=== PATIENT | female | born 1980 | race Caucasian/White ===

== ENCOUNTER 2016-06-13 18:16 | Emergency (ER) | payer OTHER ==
[2016-06-13 18:28] VITALS: BMI 35.2
--- NOTE | 2016-06-13 20:08 | PDOC ---
History of Present Illness - General Chief Complaint: Pain Stated Complaint: ABD PAIN Time Seen by Provider: 06/13/16 19:26 History Source: Patient - History of Present Illness Travel History: No Timing/Duration: reports: intermittent Quality: reports: mild Abdominal Pain Onset Location: reports: generalized abdomen Pain Radiation: reports: no radiation Past History - Travel Traveled outside of the country in the last 30 days: No Close contact w/someone who was outside of country & ill: No - Past Medical History Allergies/Adverse Reactions: Allergies Allergy/AdvReac Type Severity Reaction Status Date / Time No Known Allergies Allergy Verified 06/13/16 18:22 Home Medications: Ambulatory Orders Insulin Aspart [Novolog Flexpen] 0 unit SQ PRN 12/20/13 Metformin HCl [Glucophage -] 500 mg PO BID 01/19/15 Ferrous Sulfate [Feosol] 325 mg PO DAILY 11/14/15 Valsartan [Diovan] 80 mg PO DAILY 11/14/15 Albuterol 0.083% Nebulizer Sarina [Ventolin 0.083% Nebulizer Soln -] 1 amp NEB Q8H PRN #0 amp 11/19/15 Docusate Sodium [Colace -] 100 mg PO BID #14 capsule 11/19/15 Ferrous Sulfate [Feosol] 325 mg PO DAILY ud 11/19/15 Insulin (Levemir) [Levemir Vial] 50 units SQ BID@0700,2200 06/13/16 Oxycodone HCl/Acetaminophen [Percocet 5-325 mg Tablet] 1 - 2 tab PO Q4H Anemia: Yes Asthma: Yes Cardiac Disorders: No CHF: No Diabetes: Yes (iddm) Psychiatric Problems: Yes (DEPRESSION, ANXIETY,PTSD) Suicide Attempt (Hx): No Other medical history: polycystic kidney disease, kidney stones - Surgical History Abdominal Surgery: Yes Cholecystectomy: No - Psycho/Social/Smoking Cessation Hx Anxiety: No Suicidal Ideation: No Smoking History: Never smoked Have you smoked in the past 12 months: No Number of Cigarettes Smoked Daily: 2 Information on smoking cessation initiated: No Hx Alcohol Use: No Drug/Substance Use Hx: No Substance Use Type: None Abd/GI Specific PMHX - Complaint Specific PMHX Colitis: No Diverticulitis: No Gall Bladder Disease: No GERD: No Review of Systems - Review of Systems Able to Perform ROS?: Yes Comments:: 06/13/16 20:53 CONSTITUTIONAL: Absent: fever, chills, diaphoresis, generalized weakness, malaise, loss of appetite HEENT: Absent: rhinorrhea, nasal congestion, throat pain, throat swelling, difficulty swallowing, mouth swelling, ear pain, eye pain, visual Changes CARDIOVASCULAR: Absent: chest pain, loss of consciousness, palpitations, irregular heart rate, peripheral edema RESPIRATORY: Absent: cough, shortness of breath, dyspnea with exertion, orthopnea, wheezing, stridor, hemoptysis GASTROINTESTINAL: Generalized abd pain Absent: abdominal distension, nausea, vomiting, diarrhea, constipation, melena, hematochezia GENITOURINARY: Absent: dysuria, frequency, urgency, hesitancy, hematuria, flank pain, genital pain MUSCULOSKELETAL: Absent: myalgia, arthralgia, joint swelling SKIN: Absent: rash, itching, pallor HEMATOLOGIC/IMMUNOLOGIC: Absent: easy bleeding, easy bruising, lymphadenopathy, frequent infections ENDOCRINE: Absent: unexplained weight gain, unexplained weight loss, heat intolerance, cold intolerance NEUROLOGIC: Absent: headache, focal weakness or paresthesias, dizziness, unsteady gait, seizure, mental status changes, bladder or bowel incontinence PSYCHIATRIC: Absent: anxiety, depression, suicidal or homicidal ideation, hallucinations. Is the patient limited [place]ican proficient: No *Physical Exam - Vital Signs Last Vital Signs Temp Pulse Resp BP Pulse Ox 97.6 F 102 H 18 126/85 100 06/13/16 18:22 06/13/16 18:22 06/13/16 18:22 06/13/16 18:22 06/13/16 18:22 - Physical Exam Comments: 06/13/16 20:54 GENERAL: Well developed, well nourished. Awake and alert. No acute distress. HEENT: Normocephalic, atraumatic. PERRLA, EOMI. No conjunctival pallor. Sclera are non- icteric. Moist mucous membranes. Oropharynx is clear. NECK: Supple. Full ROM. No JVD. Carotid pulses 2+ and symmetric, without bruits. No thyromegaly. No lymphadenopathy. CARDIOVASCULAR: Regular rate and rhythm. No murmurs, rubs, or gallops. Distal pulses are 2+ and symmetric. PULMONARY: No evidence of respiratory distress. Lungs clear to auscultation bilaterally. No wheezing, rales or rhonchi. ABDOMINAL: Diffused pain Soft. Non-distended. No rebound or guarding. No organomegaly. Normoactive bowel sounds. MUSCULOSKELETAL Normal range of motion at all joints. No bony deformities or tenderness. No CVA tenderness. EXTREMITIES: No cyanosis. No clubbing. No edema. No calf tenderness. SKIN: Warm and dry. Normal capillary refill. No rashes. No jaundice. NEUROLOGICAL: Alert, awake, appropriate. Cranial nerves 2-12 intact. No deficits to light touch and temperature in face, upper extremities and lower extremities. No motor deficits in the in face, upper extremities and lower extremities. Normoreflexic in the upper and lower extremities. Normal speech. Toes are down- going bilaterally. Gait is normal without ataxia. PSYCHIATRIC: Cooperative. Good eye contact. Appropriate mood and affect. ED Treatment Course - LABORATORY CBC & Chemistry Diagram: 06/13/16 21:12 06/13/16 21:52 - RADIOLOGY Radiograph Interpretation: 06/14/16 01:43 Patient Name: Jordyn Ramos This is a preliminary report by imaging pullman conductor Exam: Contrast-enhanced CT abdomen and pelvis Images: 526 Clinical indication: Abdominal pain. Findings: The lung bases are clear. Areas of hypoattenuation are seen along the fissures likely fatty infiltration. The liver is otherwise unremarkable. The gallbladder spleen and pancreas all have a normal appearance. The adrenal glands are unremarkable. Numerous hypodensities are seen in both kidneys which may represent a polycystic kidney variant. There is no hydronephrosis or hydroureter. The gastrointestinal tract does not appear obstructed. A small ventral hernia contains a segment of nonobstructed small bowel. No thickened or dilated bowel is seen. The appendix has a normal appearance. There is no mesenteric infiltration. There is no free fluid. The uterus is anteverted. No adnexal masses are seen. The urinary bladder is unremarkable. No abdominal or pelvic adenopathy is seen. No lytic or blastic destructive osseous lesions are seen. Impression: No inflammatory process identified in the abdomen or pelvis. No abdominal mass, adenopathy or collection seen. No explanation seen for this patient's abdominal pain. Innumerable hypodensities in both kidneys may represent a polycystic kidney variant. THIS DOCUMENT HAS BEEN ELECTRONICALLY SIGNED John Church M.D. 06/14/2016 00:27 EST Progress Note - Progress Note Progress Note: 36-year-old female presents to the emergency department with her family complaining of diffuse abdominal pains. Pain is described as 8/10 dull pain radiating intermittent to the right flank. The pain started approximately 6 AM which woke her from her sleep. The pain is alleviated minimally when laying supine and is exacerbated when sitting up. The pain is associated with chills, nausea/vomiting and 3 bouts of diarrhea(nonbilious, nonbloody) but denies any fever. The pain is also associated with intermittent burning upon urination but denies frequency/hesitancy, hematuria. LMP: 3 weeks ago 0122hrs: Pt states she feels better and wishes to go home *DC/Admit/Observation/Transfer Diagnosis at time of Disposition: Viral syndrome UTI (urinary tract infection) Qualifiers: Urinary tract infection type: acute cystitis Hematuria presence: without hematuria Qualified Code(s): N30.00 - Acute cystitis without hematuria Diabetes mellitus Qualifiers: Diabetes mellitus type: type 1 Diabetes mellitus complication status: with hyperglycemia Qualified Code(s): E10.65 - Type 1 diabetes mellitus with hyperglycemia - Discharge Dispostion Disposition: HOME Condition at time of disposition: Improved Admit: No - Referrals Referrals: Billie Mulligan MD [Primary Care Provider] - Elliott Montero MD [Staff Physician] - Alcides Mackay MD., MD [Staff Physician] - - Patient Instructions Printed Discharge Instructions: Urinary Tract Infection Additional Instructions: Below is a preliminary ultrasound report. The final reading will be done within 24-48 hours. Patient to take your antibiotics for your urinary tract infection. Increase fluids Pelvic rest Follow-up with your physician and the urologist as listed on your discharge sheet Return back to the emergency department for severe/persistent or worsening symptoms. Patient Name: Jordyn aRmos This is a preliminary report by imaging pullman conductor Exam: Contrast-enhanced CT abdomen and pelvis Images: 526 Clinical indication: Abdominal pain. Findings: The lung bases are clear. Areas of hypoattenuation are seen along the fissures likely fatty infiltration. The liver is otherwise unremarkable. The gallbladder spleen and pancreas all have a normal appearance. The adrenal glands are unremarkable. Numerous hypodensities are seen in both kidneys which may represent a polycystic kidney variant. There is no hydronephrosis or hydroureter. The gastrointestinal tract does not appear obstructed. A small ventral hernia contains a segment of nonobstructed small bowel. No thickened or dilated bowel is seen. The appendix has a normal appearance. There is no mesenteric infiltration. There is no free fluid. The uterus is anteverted. No adnexal masses are seen. The urinary bladder is unremarkable. No abdominal or pelvic adenopathy is seen. No lytic or blastic destructive osseous lesions are seen. Impression: No inflammatory process identified in the abdomen or pelvis. No abdominal mass, adenopathy or collection seen. No explanation seen for this patient's abdominal pain. Innumerable hypodensities in both kidneys may represent a polycystic kidney variant. THIS DOCUMENT HAS BEEN ELECTRONICALLY SIGNED John Church M.D. 06/14/2016 00:27 EST
[2016-06-13] MEDS ORDERED: SODIUM CHLORIDE 1,000 ML IV STA (20:10)
[2016-06-13 21:27] LABS: EOSINOPHIL 0.6 % (0-4.5); MCH 29.1 pg (25.7-33.7); MEAN CELL VOLUME 85.7 fl (80-96); MEAN PLT VOLUME 9.7 fl (7.5-11.1); NEUTROPHILS 74.6 % (42.8-82.8); PLATELET COUNT 268 K/MM3 (134-434); RDW 13.6 % (11.6-15.6)
[2016-06-13 21:31] LABS: URINE APPEARANCE CLOUDY; URINE BILIRUBIN NEGATIVE (NEGATIVE); URINE COLOR YELLOW; URINE GLUCOSE (UA) 3+ (NEGATIVE); URINE KETONE 1+ (NEGATIVE); URINE NITRITE NEGATIVE (NEGATIVE); URINE UROBILINOGEN NEGATIVE E.U./dl (0.2-1.0)
[2016-06-13 21:32] LABS: URINE BLOOD 2+ (NEGATIVE); URINE LEUK ESTERASE 1+ (NEGATIVE); URINE PROTEIN 2+ (NEGATIVE)
[2016-06-13 21:38] LABS: URINE RBC 6 /hpf (0-3); URINE WBC 11 /hpf (3-5)
[2016-06-13 21:44] LABS: AMYLASE 67 U/L (25-115)
[2016-06-13 22:36] LABS: ALBUMIN 2.7 g/dl (3.4-5.0); ANION GAP 13 (8-16); CALCIUM 8.2 mg/dL (8.5-10.1); CO2 22 mmol/L (21-32); SGOT/AST 13 U/L (15-37); SGPT/ALT 23 U/L (12-78)
[2016-06-13 22:38] LABS: ALK PHOS 104 U/L (45-117); BILIRUBIN,TOTAL 0.4 mg/dL (0.2-1.0); TOT PROT 6.4 g/dl (6.4-8.2)
[2016-06-13 22:40] LABS: GLUCOSE,RANDOM 365 mg/dL (74-106)
[2016-06-13] MEDS ORDERED: INSULIN REGULAR HUMAN 100 UNITS/ML *VIAL IVPUSH ONE (22:49)
[2016-06-13] MEDS ORDERED: INSULIN (NOVOLOG) ASPART 100 UNITS/ML 10ML VIAL ONE (23:32)
[2016-06-14 02:04] VITALS: BP 122/74; PULSE 82; TEMP 97.9
== END 2016-06-14 02:13 | disposition home or self-care (01) ==
LOC: JER 18:16
PROC: 3E0337Z Introduction of Electrolytic and Water Balance Substance into Peripheral Vein, Percutaneous Approach (ICD-10-PCS; principal; 2016-06-13)
PROC: 3E033VG Introduction of Insulin into Peripheral Vein, Percutaneous Approach (ICD-10-PCS; 2016-06-13)
DX: N30.00 Acute cystitis without hematuria (principal); B34.9 Viral infection, unspecified; E10.9 Type 1 diabetes mellitus without complications; Z79.4 Long term (current) use of insulin; J45.909 Unspecified asthma, uncomplicated; J44.9 Chronic obstructive pulmonary disease, unspecified; F41.8 Other specified anxiety disorders
CPT/HCPCS: 36415; 74177-TC; 80053; 81003; 81015; 82150; 83690; 84703; 85025; 87086; 96361; 96374; 99283-25; Q9967

== ENCOUNTER 2017-10-06 13:03 | Observation (INO) | payer OTHER ==
--- NOTE | 2017-10-06 13:59 | PDOC ---
History of Present Illness - General Chief Complaint: Vaginal Bleeding Stated Complaint: HIGH BLOOD SUGAR - History of Present Illness Initial Comments: Patient is a 37 year old female, with a significant past medical history of PCOS , Anemia, IDDM, Asthma, Kidney stones, who presents to the emergency department complaining of two weeks of persistent menorrhagia. Pt states that she has had persistent vaginal bleeding during her last period beginning on 09/25, initially with very heavy flow, requiring pad changes 1x per hour and noted clots from the vaginal introitus. Pt states the bleeding has persistent, however has decreased slightly in volume. Pt also endorses recent crampy lower abdominal pain over the last few days associated with episodes of bleeding and states her BGMs have been elevated in the 300s the last few days. Pt endorses regular menses prior to this period and recently had a depot placed in July. Pt with no hx of any gynecologic conditions. Pt with two prior miscarriages and two living children, most recent miscarriage was three years ago, required blood transfusions at [facility]. Pt is sexually active with her and does not use contraception Endorses mild lightheadedness SOB recently. Complaining of crampy LLQ and suprapubic abdominan pain; chronic LUQ and BL back pain. patient denies chest pain, shortness of breath, headache. Denies fever, chills, nausea, vomiting, diarrhea and constipation. Denies dysuria, frequency, urgency and hematuria. Allergies:None Past surgical history: 2 C-sections, multiple lithotripsies for renal stones Social History: Former smoker, social drink 2-3 drinks per week. No drug use PMD: Dr. Strickland Edger Hand: Dr. Rosen 10/06/17 13:43 Past History - Past Medical History Allergies/Adverse Reactions: Allergies Allergy/AdvReac Type Severity Reaction Status Date / Time No Known Allergies Allergy Verified 10/06/17 13:13 Home Medications: Ambulatory Orders Albuterol 0.083% Nebulizer Sarina [Ventolin 0.083% Nebulizer Soln -] 1 neb NEB Q6H PRN 10/06/17 Budesonide/Formeterol Fumarate [SYMBICORT 80/4.5mcg -] 1 inh PO DAILY 10/06/17 Ferrous Sulfate [Feosol] 325 mg PO DAILY 10/06/17 Insulin Glargine,Hum.rec.anlog [Lantus] 50 unit SQ HS 10/06/17 Valsartan [Diovan] 80 mg PO DAILY 10/06/17 metFORMIN HCL [Glucophage -] 500 mg PO BID 10/06/17 Anemia: Yes Asthma: Yes Cardiac Disorders: No COPD: No CHF: No Diabetes: Yes (iddm) Psychiatric Problems: Yes (DEPRESSION/ANXIETY/BIPOLAR) - Surgical History Abdominal Surgery: Yes Cholecystectomy: No - Suicide/Smoking/Psychosocial Hx Smoking History: Never smoked Have you smoked in the past 12 months: No Number of Cigarettes Smoked Daily: 0 Hx Alcohol Use: No Drug/Substance Use Hx: No Substance Use Type: None Review of Systems - Review of Systems Comments:: GENERAL/CONSTITUTIONAL: No fever or chills. No weakness. +lightheadness. HEAD, EYES, EARS, NOSE AND THROAT: No change in vision. No ear pain or discharge. No sore throat. CARDIOVASCULAR: No chest pain or shortness of breath RESPIRATORY: No cough, wheezing, or hemoptysis. GASTROINTESTINAL: +Abdominal pain. No nausea, vomiting, diarrhea or constipation. GENITOURINARY: +Menorrhagia. No dysuria, frequency, or change in urination. MUSCULOSKELETAL: No joint or muscle swelling or pain. No neck or back pain. SKIN: No rash NEUROLOGIC: No headache, vertigo, loss of consciousness, or change in strength/ sensation. ENDOCRINE: No increased thirst. No abnormal weight change HEMATOLOGIC/LYMPHATIC: No anemia, easy bleeding, or history of blood clots. ALLERGIC/IMMUNOLOGIC: No hives or skin allergy. 10/06/17 13:44 *Physical Exam - Vital Signs Last Vital Signs Temp Pulse Resp BP Pulse Ox 97.8 F 100 H 22 126/76 98 10/06/17 13:14 10/06/17 13:14 10/06/17 13:14 10/06/17 13:14 10/06/17 13:14 - Physical Exam Comments: GENERAL: Middle aged, awake, alert, and fully oriented, in no acute distress HEAD: No signs of trauma, normocephalic, atraumatic EYES: PERRLA, EOMI, sclera anicteric, conjunctiva clear ENT: Auricles normal inspection, hearing grossly normal, nares patent, oropharynx clear without exudates. Moist mucosa NECK: Normal ROM, supple, no lymphadenopathy, JVD, or masses LUNGS: No distress, speaks full sentences, clear to auscultation bilaterally HEART: Regular rate and rhythm, normal S1 and S2, no murmurs, rubs or gallops, peripheral pulses normal and equal bilaterally. ABDOMEN: +TTP in LLQ/LUQ/suprapubic region. Globular abdomen, No guarding, no rebound. L CVA tenderness/flank pain. EXTREMITIES : Normal inspection, Normal range of motion, trace pedal edema. No clubbing or cyanosis. NEUROLOGICAL: Cranial nerves II through XII grossly intact. Normal speech, normal gait, no focal sensorimotor deficits SKIN: Warm, Dry, normal turgor, no rashes or lesions noted 10/06/17 13:44 ED Treatment Course - LABORATORY CBC & Chemistry Diagram: 10/06/17 14:27 10/06/17 22:00 Medical Decision Making - Medical Decision Making 37 year old female, with a significant past medical history of PCOS, Anemia, IDDM, Asthma, Kidney stones, who presents to the emergency department complaining of two weeks of persistent menorrhagia. Will send for CBC, CMP, Pt/ INR, TSH, UA, urine culture, B-HCG, and TVUS. DDx includes menometrorhagia, fibroids, , adenomyosis, molar , PID, Tuboovarian abscess 10/06/17 15:15 Labs notable for VICENTE 1.5. BGMs persistently in 500s. Pt concerned about going home to medicinal plant picker daughter, initially wanted to leave AMA. Pelvic exam performed, no evidence of CMT, irregular cervical surface noted. Pt still with vaginal bleeding on exam. TVUS notable for endometrial thickening to 2.1cm. Will given referral for OBGYN f/u for endometrial sampling. Plan for 2 L boluses and presumptive discharge later tonight. Pt made ED obs, raymond masonlogged, aware. 10/06/17 19:[address] Price. Sign out given. Raymond masonlogged again to inform of ED short stay status. 10/06/17 21:12 *DC/Admit/Observation/Transfer Diagnosis at time of Disposition: Vaginal bleeding, Acute kidney injury - Referrals - Patient Instructions - Post Discharge Activity
[2017-10-06 15:06] LABS: BASO % 0.9 % (0-2.0); EOS % 0.8 % (0-4.5); HEMOGLOBIN 10.9 GM/dL (10.7-15.3); LYMPH % 22.7 % (8-40); MCH 30.2 pg (25.7-33.7); MCHC 33.9 g/dl (32.0-36.0); MEAN CELL VOLUME 89.2 fl (80-96); MONO % 5.6 % (3.8-10.2); PLATELET COUNT 231 K/MM3 (134-434); RBC 3.59 M/mm3 (3.60-5.2); RDW 12.8 % (11.6-15.6); WHITE BLOOD COUNT 7.8 K/mm3 (4.0-10.0)
[2017-10-06] MEDS ORDERED: SODIUM CHLORIDE 1,000 ML IV STA ×3 (15:06→19:46)
--- NOTE | 2017-10-06 15:22 | PDOC ---
Attending Attestation - [facility] HPI: 10/06/17 15:22 The patient is a 37 year old female with a significant past medical history of Asthma, Anemia, Diabetes, PCOS, and Kidney stones, who presents to the emergency department for evaluation of a 2 week history of menorrhagia. The patient reports episodes of persistent vaginal bleeding during her last menses ( 09/25) requiring pad change, 1 time every hour. She reports crampy lower abdominal pain secondary to episodes of bleeding. She reports regular menses. Of note, the patients most recent miscarriage was three years ago, required blood transfusions at [facility]. The patient admits she is sexually active with her and does not use contraception. She reports associated symptoms of crampy left lower quadrant pain, suprapubic abdominal pain, chronic left upper quadrant pain, lightheadedness, and dyspnea. The patient denies chest pain, shortness of breath, headache, and dizziness. Denies fevers, chills, nausea, vomiting, diarrhea, and constipation. Denies dysuria, frequency, urgency, and hematuria. Denies history of gynecologic conditions. Allergies: NKDA Past surgical history: C-sections 2x, multiple lithotripsies for renal stones Social History: Former smoker, social drink 2-3 drinks per week. No reported drug use. PCP: Dr. Mulligan ([phone]) Convex Grinder Operator: Dr. Rosen - Physicial Exam PE: Vitals: Triage Vital signs reviewed General Appearance: no acute distress, well nourished well developed, Head: Atraumatic, normocephalic Eyes: Pupils equal reactive round, extraocular movement intact Nose: Nares patent bilaterally Neck: Supple;No Nuchal rigidity Chest Wall: Nontender Cardiac: Regular rate and rhythm, no murmurs, no rubs, no gallops, Lungs: Clear to auscultation bilateral, good air movement bilaterally, Abdomen: Soft, nondistended, normal bowel sounds, nontender to palpation Rectal: Exam deferred Extremities: Full range of motion to all extremities, no cyanosis, clubbing, or edema Skin: Warm and dry, no rashes or lesions, no petechiae Psych: normal mood, normal affect - Medical Decision Making The patient is a 37 year old female with a significant past medical history of Asthma, Anemia, Diabetes, PCOS, and Kidney stones, who presents to the emergency department for evaluation of a 2 week history of menorrhagia. Plan: Labs UA Trasvaginal <Danilo Clark - Last Filed: 10/06/17 15:22> - Resident Resident Name: Tulio Watkins - ED Attending Attestation I have performed the following: I have examined & evaluated the patient, The case was reviewed & discussed with the resident, I agree w/resident's findings & plan, Exceptions are as noted - Medical Decision Making 10/06/17 19:45 Patient presents with menorrhagia. Abdominal cramping. No fever no white count. Patient critically high glucose and elevated creatinine Difficult access Despite 12 units NovoLog patient's fingerstick remains critically high Reevaluation 7:30 PM. Left EJ placed by ER M.D. Patient not amenable to staying overnight for observation giving lack of child adolescent care. Plan is hydrated with 3 L of fluid additional insulin. Recheck labs. Patient will be placed on short stay observation. Should her hyperglycemia and creatinine downtrend patient can be discharged and advised to follow-up with her primary care provider and corrective and manual arts therapist tomorrow. Patient also follows with Dr. Murray Rosario renal she was also encouraged to follow up with Dr. Delacruz to assume remainder of care. 7:45 PM. <Kendrick Beckett - Last Filed: 10/06/17 19:45> Attestations - Attestations Documentation prepared by Danilo Clark, acting as medical staffing coordinator for Kendrick Beckett MD. <Danilo Clark - Last Filed: 10/06/17 15:22>
[2017-10-06 15:44] LABS: ALBUMIN 2.7 g/dl (3.4-5.0); ANION GAP 9 (8-16); BILIRUBIN,TOTAL 0.3 mg/dL (0.2-1.0); BLOOD UREA NITROGEN 22 mg/dL (7-18); CALCIUM 8.3 mg/dL (8.5-10.1); CHLORIDE 99 mmol/L (98-107); CO2 23 mmol/L (21-32); CREATININE 1.6 mg/dL (0.55-1.02); SGPT/ALT 17 U/L (12-78); SODIUM 131 mmol/L (136-145)
[2017-10-06 15:45] LABS: URINE APPEARANCE CLEAR; URINE BILIRUBIN NEGATIVE (<2.0 mg/dL); URINE COLOR STRAW; URINE GLUCOSE (UA) 3+ (NEGATIVE); URINE KETONE NEGATIVE (NEGATIVE); URINE LEUK ESTERASE NEGATIVE (NEGATIVE); URINE NITRITE NEGATIVE (NEGATIVE); URINE UROBILINOGEN NEGATIVE mg/dL (0.2-1.0)
[2017-10-06 15:51] LABS: INR 0.83 (0.82-1.09); PROTHROMBIN TIME (PATIENT) 9.4 SEC (9.7-13.0)
[2017-10-06 15:53] LABS: ALK PHOS 141 U/L (45-117)
[2017-10-06 15:54] LABS: GLUCOSE,RANDOM 533 mg/dL (74-106); POTASSIUM 4.6 mmol/L (3.5-5.1); SGOT/AST 15 U/L (15-37)
[2017-10-06 16:01] LABS: URINE PROTEIN 2+ (NEGATIVE)
[2017-10-06] MEDS ORDERED: INSULIN (NOVOLOG) ASPART 100 UNITS/ML 10ML VIAL SQ ONE ×2 (16:12→18:08)
[2017-10-06] MEDS ORDERED: INSULIN REGULAR HUMAN 100 UNITS/ML *VIAL ONE ×3 (16:19→18:22)
[2017-10-06] MEDS ORDERED: INSULIN SLIDING SCALE (NOVOLOG) 1 VIAL SQ SCH (16:30)
[2017-10-06 16:33] LABS: EPI CELLS RARE /HPF (FEW)
[2017-10-06 16:50] LABS: HCG,QUALITATIVE URINE NEGATIVE
[2017-10-06] MEDS ORDERED: SODIUM CHLORIDE 0.9% 1000 ML INFUS.BAG IV ONE (19:29)
--- NOTE | 2017-10-06 20:22 | PDOC ---
*Physical Exam - Vital Signs Last Vital Signs Temp Pulse Resp BP Pulse Ox 97.8 F 100 H 22 126/76 98 10/06/17 13:14 10/06/17 13:14 10/06/17 13:14 10/06/17 13:14 10/06/17 18:28 ED Treatment Course - LABORATORY CBC & Chemistry Diagram: 10/06/17 14:27 10/06/17 15:12 - ADDITIONAL ORDERS Additional order review: Laboratory Results 10/06/17 10/06/17 10/06/17 Unknown 15:12 14:53 PT with INR INR Sodium Cancelled Potassium Cancelled Chloride Cancelled Carbon Dioxide Cancelled Anion Gap Cancelled BUN Cancelled Creatinine Cancelled Creat Clearance w eGFR Cancelled Random Glucose Cancelled Calcium Cancelled Total Bilirubin Cancelled AST Cancelled ALT Cancelled Alkaline Phosphatase Cancelled Total Protein Cancelled Albumin Cancelled Lipase 160 TSH Urine Color Cancelled Urine Appearance Cancelled Urine pH Cancelled Ur Specific [place] Cancelled Urine Protein Cancelled Urine Glucose (UA) Cancelled Urine Ketones Cancelled Urine Blood Cancelled Urine Nitrite Cancelled Urine Bilirubin Cancelled Urine Urobilinogen Cancelled Ur Leukocyte Esterase Cancelled Urine WBC (Auto) Urine RBC (Auto) Ur Epithelial Cells Urine HCG, Qual Negative 10/06/17 10/06/17 10/06/17 14:41 14:41 14:41 PT with INR 9.40 L INR 0.83 L Sodium 131 L Potassium 4.6 Chloride 99 Carbon Dioxide 23 Anion Gap 9 BUN 22 H Creatinine 1.6 H Creat Clearance w eGFR 36.47 Random Glucose 533 H* Calcium 8.3 L Total Bilirubin 0.3 D AST 15 ALT 17 Alkaline Phosphatase 141 H Total Protein 7.0 Albumin 2.7 L Lipase TSH 1.39 Urine Color Straw Urine Appearance Clear Urine pH 6.0 Ur Specific [place] 1.018 Urine Protein 2+ H Urine Glucose (UA) 3+ H Urine Ketones Negative Urine Blood 1+ H Urine Nitrite Negative Urine Bilirubin Negative Urine Urobilinogen Negative Ur Leukocyte Esterase Negative Urine WBC (Auto) <1 Urine RBC (Auto) <1 Ur Epithelial Cells Rare Urine HCG, Qual Negative 10/06/17 14:27 RBC 3.59 L MCV 89.2 MCHC 33.9 RDW 12.8 MPV 10.0 Neutrophils % 70.0 Lymphocytes % 22.7 Monocytes % 5.6 Eosinophils % 0.8 Basophils % 0.9 - Medications Given in the ED: ED Medications Discontinued Medications Generic Name Dose Route Start Last Admin Trade Name [place] PRN Reason Stop Dose Admin Sodium Chloride 1,000 mls @ 1,000 mls/hr 10/06/17 15:06 10/06/17 17:13 Normal Saline - IV 10/06/17 16:05 Not Given ASDIR STA Insulin Aspart 12 units 10/06/17 16:12 10/06/17 16:31 Novolog Vial SQ 10/06/17 16:13 12 units ONCE ONE Administration Protocol Insulin Aspart 12 units 10/06/17 18:08 10/06/17 18:26 Novolog Vial SQ 10/06/17 18:09 12 units ONCE ONE Administration Protocol Sodium Chloride 3,000 ml 10/06/17 19:29 10/06/17 19:46 Normal Saline - IV 10/06/17 19:30 3,000 ml ONCE ONE Administration Medical Decision Making - Medical Decision Making 10/06/17 20:[address] Watkins. 10/06/17 21:22 Discussed patient with inpatient team for short stay obs. Patient currently receiving 2L NS and in for repeat creatinine. 10/06/17 22:15 Inpatient team determined patient needs full observation in hospital. Patient admitted for further evaluation. *DC/Admit/Observation/Transfer Diagnosis at time of Disposition: Vaginal bleeding, Acute kidney injury - Discharge Dispostion Decision to Admit order: Yes - Referrals Referrals: Bilile Mulligan MD [Primary Care Provider] - - Patient Instructions - Post Discharge Activity
--- NOTE | 2017-10-06 20:56 | PN ---
Teaching Attending Note Name of Resident: Girish Newman ATTENDING PHYSICIAN STATEMENT I saw and evaluated the patient. I reviewed the resident's note and discussed the case with the resident. I agree with the resident's findings and plan as documented. SUBJECTIVE: The patient is a 37 year old female with a significant past medical history of Asthma, Anemia, Diabetes, PCOS, and Kidney stones who presents with menorrhagia. States she was going through one tampon/hr. Notes she had a depo shot in July. Have recentlt started bleeding for 2 weeks straight. Denies any chest pain, pressure, or shortness of breath. OBJECTIVE: Physical: VS: Vital Signs Period Temp Pulse Resp BP Sys/Farah Pulse Ox Last 24 Hr 97.8 F 100 22 126/76 98-98 GEN: NAD, Resting in bed, AA0X3 HEENT: NCAT, PERRL, Throat without erythema or exudates CARD: RRR S1, S2 RESP: CTAB ABD: BSx4, NTD to palpation EXT: - C/C/E : Deferred CBCD WBC 7.8 K/mm3 (4.0-10.0) D 10/06/17 14:27 RBC 3.59 M/mm3 (3.60-5.2) L 10/06/17 14:27 Hgb 10.9 GM/dL (10.7-15.3) D 10/06/17 14:27 Hct 32.0 % (32.4-45.2) L 10/06/17 14:27 MCV 89.2 fl (80-96) 10/06/17 14:27 MCHC 33.9 g/dl (32.0-36.0) 10/06/17 14:27 RDW 12.8 % (11.6-15.6) 10/06/17 14:27 Plt Count 231 K/MM3 (134-434) 10/06/17 14:27 MPV 10.0 fl (7.5-11.1) 10/06/17 14:27 CMP Sodium Cancelled 10/06/17 15:12 Potassium Cancelled 10/06/17 15:12 Chloride Cancelled 10/06/17 15:12 Carbon Dioxide Cancelled 10/06/17 15:12 Anion Gap Cancelled 10/06/17 15:12 BUN Cancelled 10/06/17 15:12 Creatinine Cancelled 10/06/17 15:12 Creat Clearance w eGFR Cancelled 10/06/17 15:12 Random Glucose Cancelled 10/06/17 15:12 Calcium Cancelled 10/06/17 15:12 Total Bilirubin Cancelled 10/06/17 15:12 AST Cancelled 10/06/17 15:12 ALT Cancelled 10/06/17 15:12 Alkaline Phosphatase Cancelled 10/06/17 15:12 Total Protein Cancelled 10/06/17 15:12 Albumin Cancelled 10/06/17 15:12 US- Thickened Endometrium ASSESSMENT AND PLAN: The patient is a 37 year old female with a significant past medical history of Asthma, Anemia, Diabetes, PCOS, and Kidney stones being admitted for hyperglycemia/ VICENTE 1.) VICENTE - Possibly due to volume depletion - U. 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 4.) Dvt ppx - Scds Place in Obs
[2017-10-06] MEDS ORDERED: SODIUM CHLORIDE 1,000 ML IV SCH (21:00)
[2017-10-06] MEDS ORDERED: ALBUTEROL SO4 0.083% IH SOL 2.5 MG/3 ML VIAL.NEB. NEB PRN (21:01)
--- NOTE | 2017-10-06 21:07 | HP ---
CHIEF COMPLAINT: vaginal bleeding PCP: goes to [address] [place] [address] RENAL: Jessika Rosario HISTORY OF PRESENT ILLNESS: 38 yo female wit abebe hx of PCOS, anemia, IDM, asthma, renal stones presents to the hospital for 2 week hx of menorrhagia. She states that about a month ago she had the Depo shot, and after about 3-4 weeks, she began to have crampy abdominal pain and persistent, heavy bleeding that had her frequently changing pads and producing clots. She took depo provera in the past, but stopped it 8 months ago and only restarted it recently. Denies any chest pain, SOB, n/v/d, fevers, chills, lightheadedness, headache. She states that her pain and bleeding have improved and that it is not as severe as on initial presentation. ER course was notable for: (1) TV US: thickened endometrium (2) Cre 1.6 (3) Glucose 533 PAST MEDICAL HISTORY: as stated above PAST SURGICAL HISTORY: 2 C sections, lithotripsy for renal stones Social History: Smoking: former smoker many years ago Alcohol: socially Drugs: none Allergies No Known Allergies Allergy (Verified 10/06/17 13:13) HOME MEDICATIONS: Home Medications Medication Instructions Recorded Albuterol 0.083% Nebulizer Sarina 1 neb NEB Q6H PRN 10/06/17 [Ventolin 0.083% Nebulizer Soln -] Budesonide/Formeterol Fumarate 1 inh PO DAILY 10/06/17 [SYMBICORT 80/4.5mcg -] Ferrous Sulfate [Feosol] 325 mg PO DAILY 10/06/17 Insulin Glargine,Hum.rec.anlog 50 unit SQ HS 10/06/17 [Lantus] Valsartan [Diovan] 80 mg PO DAILY 10/06/17 metFORMIN HCL [Glucophage -] 500 mg PO BID 10/06/17 REVIEW OF SYSTEMS CONSTITUTIONAL: Absent: fever, chills, diaphoresis, generalized weakness, malaise, loss of appetite, weight change HEENT: Absent: rhinorrhea, nasal congestion, throat pain, throat swelling, difficulty swallowing, mouth swelling, ear pain, eye pain, visual changes CARDIOVASCULAR: Absent: chest pain, syncope, palpitations, irregular heart rate, lightheadedness , peripheral edema RESPIRATORY: Absent: cough, shortness of breath, dyspnea with exertion, orthopnea, wheezing, stridor, hemoptysis GASTROINTESTINAL: cramps Absent: abdominal pain, abdominal distension, nausea, vomiting, diarrhea, constipation, melena, hematochezia GENITOURINARY: Absent: dysuria, frequency, urgency, hesitancy, hematuria, flank pain, genital pain MUSCULOSKELETAL: Absent: myalgia, arthralgia, joint swelling, back pain, neck pain SKIN: Absent: rash, itching, pallor HEMATOLOGIC/IMMUNOLOGIC: Absent: easy bleeding, easy bruising, lymphadenopathy, frequent infections ENDOCRINE: Absent: unexplained weight gain, unexplained weight loss, heat intolerance, cold intolerance NEUROLOGIC: Absent: headache, focal weakness or paresthesias, dizziness, unsteady gait, seizure, mental status changes, bladder or bowel incontinence PSYCHIATRIC: Absent: anxiety, depression, suicidal or homicidal ideation, hallucinations. PHYSICAL EXAMINATION Vital Signs - 24 hr 10/06/17 10/06/17 13:14 18:28 Temperature 97.8 F Pulse Rate 100 H Respiratory 22 Rate Blood Pressure 126/76 O2 Sat by Pulse 98 98 Oximetry (%) GENERAL: A&Ox3, no acute distress EYES: PERRLA, EOMI ENT: Moist mucus membranes NECK: No JVD LUNGS: CTA, no wheezes HEART: RRR, no murmurs ABDOMEN: severely obese, Soft, nontender, BS present MUSCULOSKELETAL: No CVA Tenderness EXTREMITIES: 2+ pulses, no edema. NEUROLOGICAL: Cranial nerves II-XII intact. Laboratory Results - last 24 hr 10/06/17 10/06/17 10/06/17 14:27 14:41 14:41 WBC 7.8 D RBC 3.59 L Hgb 10.9 D Hct 32.0 L MCV 89.2 MCH 30.2 MCHC 33.9 RDW 12.8 Plt Count 231 MPV 10.0 Neutrophils % 70.0 Lymphocytes % 22.7 Monocytes % 5.6 Eosinophils % 0.8 Basophils % 0.9 PT with INR 9.40 L INR 0.83 L Sodium 131 L Potassium 4.6 Chloride 99 Carbon Dioxide 23 Anion Gap 9 BUN 22 H Creatinine 1.6 H Creat Clearance w eGFR 36.47 Random Glucose 533 H* Calcium 8.3 L Total Bilirubin 0.3 D AST 15 ALT 17 Alkaline Phosphatase 141 H Total Protein 7.0 Albumin 2.7 L Lipase TSH 1.39 Urine Color Urine Appearance Urine pH Ur Specific [place] Urine Protein Urine Glucose (UA) Urine Ketones Urine Blood Urine Nitrite Urine Bilirubin Urine Urobilinogen Ur Leukocyte Esterase Urine WBC (Auto) Urine RBC (Auto) Ur Epithelial Cells Urine HCG, Qual 10/06/17 10/06/17 10/06/17 14:41 14:53 15:12 WBC RBC Hgb Hct MCV MCH MCHC RDW Plt Count MPV Neutrophils % Lymphocytes % Monocytes % Eosinophils % Basophils % PT with INR INR Sodium Cancelled Potassium Cancelled Chloride Cancelled Carbon Dioxide Cancelled Anion Gap Cancelled BUN Cancelled Creatinine Cancelled Creat Clearance w eGFR Cancelled Random Glucose Cancelled Calcium Cancelled Total Bilirubin Cancelled AST Cancelled ALT Cancelled Alkaline Phosphatase Cancelled Total Protein Cancelled Albumin Cancelled Lipase 160 TSH Urine Color Straw Urine Appearance Clear Urine pH 6.0 Ur Specific [place] 1.018 Urine Protein 2+ H Urine Glucose (UA) 3+ H Urine Ketones Negative Urine Blood 1+ H Urine Nitrite Negative Urine Bilirubin Negative Urine Urobilinogen Negative Ur Leukocyte Esterase Negative Urine WBC (Auto) <1 Urine RBC (Auto) <1 Ur Epithelial Cells Rare Urine HCG, Qual Negative 10/06/17 Unknown WBC RBC Hgb Hct MCV MCH MCHC RDW Plt Count MPV Neutrophils % Lymphocytes % Monocytes % Eosinophils % Basophils % PT with INR INR Sodium Potassium Chloride Carbon Dioxide Anion Gap BUN Creatinine Creat Clearance w eGFR Random Glucose Calcium Total Bilirubin AST ALT Alkaline Phosphatase Total Protein Albumin Lipase TSH Urine Color Cancelled Urine Appearance Cancelled Urine pH Cancelled Ur Specific [place] Cancelled Urine Protein Cancelled Urine Glucose (UA) Cancelled Urine Ketones Cancelled Urine Blood Cancelled Urine Nitrite Cancelled Urine Bilirubin Cancelled Urine Urobilinogen Cancelled Ur Leukocyte Esterase Cancelled Urine WBC (Auto) Urine RBC (Auto) Ur Epithelial Cells Urine HCG, Qual Negative ASSESSMENT/PLAN: 37 year old female with hx of PCOS, anemia, IDM, asthma, renal stones presents to the hospital for 1mo hx menorrhagia and is admitted for observation to monitor blood glucose and kidney function. #Hyperglycemia: initial glucose on presentation was 533, repeat BGM after 24 units of insulin given by ED was 243 -repeat BGM in AM -insulin sliding scale coverage for now -patient gets 50U lantus at night normally, will hold now that patient received insulin in ED and only continue sliding scale coverage -hold metformin in the setting of VICENTE #Acute Kidney Injury: likely pre-renal in origin in setting of anemia and menorrhagia, but cannot yet r/o other causes like diabetic nephropathy -IVF w/ NS 1000cc -recheck BMP -urine lytes for FENa calculation #Menorrhagia: improving, not severely anemic (hgb at baseline) -f/u CBC in AM -will need outpatient f/u with manager transport #Hypertension: controlled -hold ARB for now in setting of VICENTE -monitor BP #FEN IVF NS @ 100cc/hr after 2L bolus is completed Replete lytes as necessary in AM NPO for now (can have water), diabetic diet in AM given glucose improves #Prophylaxis -early ambulation #Disposition -monitor on med surg observation Visit type - Emergency Visit Emergency Visit: Yes Care time: The patient presented to the Emergency Department on the above date and was hospitalized for further evaluation of their emergent condition. - New Patient This patient is new to me today: Yes Date on this admission: 10/06/17 - Critical Care Critical Care patient: No Hospitalist Screening - Colonoscopy Questionnaire Colonoscopy Questionnaire: Colonoscopy Questionnaire - Patient: 50 - 75 years old and never had a screening colonoscopy: Unknown History of colon or rectal polyps, or CA: Unknown History of IBD, Crohn's disease or UC: Unknown History of abdominal radiation therapy as a child: Unknown - Relative: 1 with colon or rectal CA, or polyps at age 60 or younger: Unknown Colon or rectal CA diagnosed at age 45 or younger: Unknown Multiple relatives with colon or rectal CA: Unknown - Outcome: Screening Result: Negative Screen
[2017-10-06] MEDS ORDERED: INSULIN (LEVEMIR) 100 UNITS/ML UNITS SQ SCH (22:00)
[2017-10-06] MEDS ORDERED: ACETAMINOPHEN 325 MG TABLET (FP) PO ONE (22:00)
[2017-10-06] MEDS: INSULIN (NOVOLOG) ASPART 100 UNITS/ML 10ML VIAL SQ SCH (22:54)
[2017-10-07 01:40] LABS: ANION GAP 10 (8-16); BLOOD UREA NITROGEN 17 mg/dL (7-18); CALCIUM 7.1 mg/dL (8.5-10.1); CHLORIDE 108 mmol/L (98-107); CO2 21 mmol/L (21-32); CREATININE 1.2 mg/dL (0.55-1.02); GLUCOSE,RANDOM 129 mg/dL (74-106); POTASSIUM 3.5 mmol/L (3.5-5.1); SODIUM 139 mmol/L (136-145)
[2017-10-07 02:32] VITALS: BMI 38.8
[2017-10-07] MEDS: INSULIN (NOVOLOG) ASPART 100 UNITS/ML 10ML VIAL SQ SCH (06:14)
[2017-10-07 08:06] LABS: HEMATOCRIT 29.1 % (32.4-45.2); HEMOGLOBIN 10.3 GM/dL (10.7-15.3); MCH 31.2 pg (25.7-33.7); MCHC 35.3 g/dl (32.0-36.0); MEAN CELL VOLUME 88.4 fl (80-96); MEAN PLT VOLUME 10.4 fl (7.5-11.1); PLATELET COUNT 146 K/MM3 (134-434); RBC 3.29 M/mm3 (3.60-5.2); WHITE BLOOD COUNT 8.8 K/mm3 (4.0-10.0)
[2017-10-07 08:32] LABS: CHLORIDE 108 mmol/L (98-107); POTASSIUM 3.9 mmol/L (3.5-5.1); SODIUM 138 mmol/L (136-145)
[2017-10-07 08:45] LABS: ANION GAP 10 (8-16); BLOOD UREA NITROGEN 18 mg/dL (7-18); CALCIUM 7.2 mg/dL (8.5-10.1); CO2 20 mmol/L (21-32); CREATININE 1.2 mg/dL (0.55-1.02); GLUCOSE,RANDOM 237 mg/dL (74-106); MAGNESIUM 1.7 mg/dL (1.8-2.4); PHOSPHOROUS 2.7 mg/dL (2.5-4.9)
[2017-10-07 09:38] VITALS: BP 112/70; PULSE 98; TEMP 99.2
[2017-10-07] MEDS ORDERED: INSULIN SLIDING SCALE (NOVOLOG) 1 VIAL SQ SCH (09:42)
[2017-10-07] MEDS ORDERED: PATIENT'S OWN MEDICATION (NON-FORMULARY) (Ferrous Sulfate [Feosol] 325 MG) PO SCH (10:00)
[2017-10-07] MEDS ORDERED: BUDESONIDE/FORMETEROL FUMARATE 80/4.5 mcg INHALER IH SCH (10:00)
[2017-10-07] MEDS ORDERED: FERROUS SO4 325 MG TABLET (FP) PO SCH (10:00)
[2017-10-07] MEDS ORDERED: VALSARTAN 80 MG TABLET (UD) PO SCH (10:00)
[2017-10-07] MEDS ORDERED: LORATADINE 10 MG TABLET PO ONE (12:45)
[2017-10-07] MEDS ORDERED: PT OWN MED DRAWER 7, Y5N ONE (13:36)
[2017-10-07] MEDS ORDERED: MAGNESIUM CL 64 MG TABLET.SA PO ONE (14:00)
--- NOTE | 2017-10-07 14:06 | PN ---
Teaching Attending Note Name of Resident: Sindy De La Rosa ATTENDING PHYSICIAN STATEMENT I saw and evaluated the patient. I reviewed the resident's note and discussed the case with the resident. I agree with the resident's findings and plan as documented. SUBJECTIVE: No fever or chills. vaginal bleed has much improved. no abd pain. no light headedness or KABA . OBJECTIVE: NAD Cv: RRR. no MRG Lungs : CTAB Abd: soft, NT, ND , NL BS . Ext : no edema ASSESSMENT AND PLAN: 37 y/o lady with h/o DM , polycystic kidney disease, anemia, Asthma , and nephrolithiasis who presented with vaginal bleed. 1- Menorrhagia: thickened endometrium on US. no sac and test neg. - HB remained stable. - f/u with [employer]ANER as out pt. instructed to to follow within 3-7 days - CBC prescription in few days 2- Arley: due to hypovolemia: improved with IVF . cont oral hydration - has polycystic kidney disease . contto f/u with renal 3- Dm with severe hyperglycemia, no DKA or hyperosmolar state. A1c of 11.6 . poorly controlled - advised to follow with endo and adhere to diet and meds - cont homelantus 50 HS and SSI . - can cont metformin as GFR > 30 - given prescription for BMP to follow renal function ---> metformin adjustment 4- dispo : Pt feels well and requests dc home . homar dc with close f/u with [facility], renal and PCP
--- NOTE | 2017-10-07 22:08 | DS ---
Physical Exam: SUBJECTIVE: Patient seen and examined at bedside. No acute events overnight. Pt states that her vaginal bleeding has improved, and she no longer has abdominal cramping. Only c/o nasal congestion. Denies KABA, fever, chills, SOB, or changes in urinary or bowel function. States that she is ready to go home. OBJECTIVE: Vital Signs Period Temp Pulse Resp BP Sys/Farah Pulse Ox Last 24 Hr 98.3 F-99.2 F 94-98 18-20 112-130/59-83 98-100 PHYSICAL EXAM GENERAL: The patient is sitting comfortably, OOB. awake, alert, and fully oriented, in no acute distress. HEAD: Normal with no signs of trauma. EYES: PERRL, extraocular movements intact, sclera anicteric, conjunctiva clear. ENT: Ears normal, nares patent, oropharynx clear without exudates, moist mucous membranes. NECK: Trachea midline, supple. LUNGS: Breath sounds equal, clear to auscultation bilaterally, no wheezes, no crackles, no accessory muscle use. HEART: Regular rate and rhythm, S1, S2 without murmur, rub or gallop. ABDOMEN: Soft, obese, diffusely TTP upon deep palpation, nondistended, normoactive bowel sounds, no guarding, no rebound EXTREMITIES: 2+ dp pulses, warm, well-perfused, no edema. NEUROLOGICAL: Cranial nerves II through XII grossly intact. Normal speech PSYCH: Normal mood, normal affect. SKIN: Warm, dry, normal turgor, no rashes or lesions noted. LABS Laboratory Results - last 24 hr 10/06/17 10/06/17 10/06/17 18:05 22:00 22:00 MPV Sodium 139 Potassium 3.5 Chloride 108 H Carbon Dioxide 21 Anion Gap 10 BUN 17 Creatinine 1.2 H POC Glucometer > 400 Random Glucose 129 H Calcium 7.1 L Urine Creatinine Acetone, Qual Negative L 10/06/17 10/07/17 10/07/17 22:00 02:40 06:00 WBC Anion Gap Creatinine POC Glucometer 155 Random Glucose Hemoglobin A1c % 11.4 H Calcium Phosphorus Magnesium Ur Random Sodium 74 Urine Creatinine 32.0 Acetone, Qual 10/07/17 10/07/17 07:00 07:00 WBC 8.8 RBC 3.29 L Hgb 10.3 L Hct 29.1 L MCV 88.4 MCH 31.2 MCHC 35.3 RDW 13.0 Plt Count 146 D MPV 10.4 Sodium 138 Potassium 3.9 Chloride 108 H Carbon Dioxide 20 L Anion Gap 10 BUN 18 Creatinine 1.2 H Calcium 7.2 L Phosphorus 2.7 Magnesium 1.7 L Urine Creatinine Glucose monitoring 10/06/17 10/06/17 10/07/17 18:05 21:22 02:40 POC Glucometer > 400 [id number] 155 10/07/17 10/07/17 06:09 11:40 POC Glucometer 275 371 Hb A1c 10/07/17 06:00 Hemoglobin A1c % 11.4 H Creatinine trend 10/06/17 10/06/17 10/07/17 14:41 22:00 07:00 Creatinine 1.6 H 1.2 H 1.2 H IMAGING 10/06/17: Transvaginal US: uterus is normal in size measuring 9.2x6.2x4.7cm. No uterine masses seen. Thickened and heterogeneous endometrium of 2.1cm identified. No vascularity is noted within the endometrium. The ovaries could not be identified. There is no evidence of adnexal masses or free pelvic fluid collections. Clinical correlation and follow up recommended. HOSPITAL COURSE: Date of Admission:10/06/17 Date of Discharge: 10/07/17 Admit diagnosis: VICENTE, hyperglycemia 38 y/o F with hx polycystic kidney dz (dx 4-5 yrs ago; follows with nephro Dr. Rosario), iron deficiency anemia, DM (dx age 21; last A1c ~11 3-4 yrs prior, on metformin, novolog, lantus 50U at home. states compliant), asthma, nephrolithiasis, who presents to the ED for two week hx of menorrhagia. Pt states that about a month ago she had the Depo shot, and after about 3-4 weeks, she began to have crampy abdominal pain a/w persistent, heavy bleeding. Pt was changing pads every hour and producing clots. She took depo provera in the past , but stopped it 8 months ago due to amenorrhea and only restarted it recently. First day LMP 09/25/17, pt has not followed up with ekg/ecg technician recently. Pt is sexually active. u HCG (-), and in ED pt was found to have TV US revealing thickened and heterogeneous endometrium of 2.1cm. During pt's stay, pt's abdominal pain and bleeding improved. She is recommended ekg/ecg technician f/u on dc. Pt also with VICENTE likely prerenal 2/2 menorrhagia. Improved with fluids and to continue nephro follow up with Dr. Rosario. Additionally, on admission pt with elevated BG of 533, states compliant with metformin 500 BID, lantus 50 HS, novolog before meals. However, with A1c 11.4 will need endocrine f/u with Dr. Shell for improved control. Minutes to complete discharge: 39 Discharge Summary Reason For Visit: ACUTE KIDNET INJURY Condition: Stable - Instructions Diet, Activity, Other Instructions: You were in the hospital due to heavy vaginal bleeding. While you were here, your blood counts were monitored and were stable. You had a transvaginal ultrasound done that showed a thickened endometrium. Please follow up with a literary agent, Dr. Arenas in a week to discuss these findings as you might need a procedure or a biopsy While you were here, your blood sugar was also found to be elevated. Please try to keep a log of your sugars throughout the day and continue to use your metformin, sliding scale before each meal , and lantus 50 units at night. Please follow up with your primary care physician in a week to have repeat blood work done to check on your kidneys. If your kidney filtration is low, your doctor may choose to discontinue metformin. However, for the time being, please continue it. Continue to drink plenty of fluids. Follow up with your Restorative Rehab Aide, Dr. Shell, to manage your insulin within a week. Your A1C here was 11.4% Follow up with your Machine Rigger, Dr. Jessika Duff, within a week to follow up on your kidney function. You may continue your home medications. You will need repeat blood work in a week. We will give you a prescription for the blood work. If you feel short of breath, dizzy, or as if you will pass out, please go to the hospital. We hope you feel better soon. INSULIN SLIDING SCALE: BGM 101 - 150 --> Give 0 units insulin BGM 151 - 200 --> Give 2 units insulin BGM 201 - 250 --> Give 4 units insulin BGM 251 - 300 --> Give 6 units insulin BGM 301 - 350 --> Give 8 units insulin BGM 351 - 400 --> Give 10 units insulin BGM +400 --> Give 12 units insulin and call your doctor Referrals: Jessika Duff MD [Staff Physician] - Gera Shell MD [Staff Physician] - Ervin Arenas MD [Staff Physician] - 1 Week Billie Mulligan MD [Primary Care Provider] - 1 Week Disposition: HOME - Home Medications Comprehensive Discharge Medication List: Ambulatory Orders Albuterol 0.083% Nebulizer Sarina [Ventolin 0.083% Nebulizer Soln -] 1 neb NEB Q6H PRN 10/06/17 Budesonide/Formeterol Fumarate [SYMBICORT 80/4.5mcg -] 1 inh PO DAILY 10/06/17 Ferrous Sulfate [Feosol] 325 mg PO DAILY 10/06/17 Insulin Glargine,Hum.rec.anlog [Lantus] 50 unit SQ HS 10/06/17 Valsartan [Diovan] 80 mg PO DAILY 10/06/17 metFORMIN HCL [Glucophage -] 500 mg PO BID 10/06/17 Insulin Sliding Scale [Novolog Vial Sliding Scale -] 1 vial SQ ACHS units 10/07 Miscellaneous Drug Not In Syst [Outpatient Lab Test] 1 each ASDIR #1 misc This patient is new to me today: Yes Date on this admission: 10/07/17 Emergency Visit: No Critical Care patient: No - Discharge Referral Referred to [facility] No
== END 2017-10-07 14:54 | disposition home or self-care (01) ==
LOC: JER 13:03 → JERBED 21:21 → J8W 10-07 02:17
PROVIDERS: ADMIT Internal Medicine; ATTEND Internal Medicine
PROC: 3E0337Z Introduction of Electrolytic and Water Balance Substance into Peripheral Vein, Percutaneous Approach (ICD-10-PCS; principal; 2017-10-06)
PROC: 3E013VG Introduction of Insulin into Subcutaneous Tissue, Percutaneous Approach (ICD-10-PCS; 2017-10-06)
DX: N17.9 Acute kidney failure, unspecified (principal); N93.9 Abnormal uterine and vaginal bleeding, unspecified; N92.0 Excessive and frequent menstruation with regular cycle; E11.65 Type 2 diabetes mellitus with hyperglycemia; E28.2 Polycystic ovarian syndrome; D64.9 Anemia, unspecified; Z79.4 Long term (current) use of insulin; Z87.442 Personal history of urinary calculi
CPT/HCPCS: 36415; 76830-TC; 80048; 80053; 81003; 81015; 82009; 82570; 82962; 83036; 83690; 83735; 84100; 84300; 84443; 84703; 85025; 85027; 85610; 87086; 96360; 96372; 99284-25; G0378; J7030

== ENCOUNTER 2018-04-18 15:36 | Emergency (ER) | payer OTHER ==
[2018-04-18 15:47] VITALS: BMI 35.3
--- NOTE | 2018-04-18 16:09 | PDOC ---
History of Present Illness - General Chief Complaint: Pain Stated Complaint: SICK Time Seen by Provider: 04/18/18 16:09 Past History - Past Medical History Allergies/Adverse Reactions: Allergies Allergy/AdvReac Type Severity Reaction Status Date / Time No Known Allergies Allergy Verified 10/06/17 13:13 Home Medications: Ambulatory Orders Albuterol 0.083% Nebulizer Sarina [Ventolin 0.083% Nebulizer Soln -] 1 neb NEB Q6H PRN 10/06/17 Budesonide/Formeterol Fumarate [SYMBICORT 80/4.5mcg -] 1 inh PO DAILY 10/06/17 Ferrous Sulfate [Feosol] 325 mg PO DAILY 10/06/17 Insulin Glargine,Hum.rec.anlog [Lantus] 35 unit SQ BID 10/06/17 Valsartan [Diovan] 80 mg PO DAILY 10/06/17 metFORMIN HCL [Glucophage -] 1,000 mg PO BID 10/06/17 Insulin Lispro [Humalog] 100 unit SQ ASDIR 04/18/18 Anemia: Yes Asthma: Yes Cardiac Disorders: No COPD: No CHF: No Diabetes: Yes (iddm) Psychiatric Problems: Yes (DEPRESSION/ANXIETY/BIPOLAR) - Surgical History Abdominal Surgery: Yes Cholecystectomy: No - Reproductive History Dysfunctional Uterine Bleeding: Yes - Suicide/Smoking/Psychosocial Hx Smoking History: Never smoked Have you smoked in the past 12 months: No Number of Cigarettes Smoked Daily: 0 Hx Alcohol Use: No Drug/Substance Use Hx: No Substance Use Type: None Hx Substance Use Treatment: No *Physical Exam - Vital Signs Last Vital Signs Temp Pulse Resp BP Pulse Ox 98.1 F 104 H 20 112/88 100 04/18/18 15:46 04/18/18 15:46 04/18/18 15:46 04/18/18 15:46 04/18/18 15:46
--- NOTE | 2018-04-18 16:20 | PDOC ---
History of Present Illness - General Chief Complaint: Pain Stated Complaint: SICK Time Seen by Provider: 04/18/18 16:09 - History of Present Illness Initial Comments: 04/18/18 16:14 Ms. Tello is a 38 yo female w/ pmh of PCOS, Kidney failure stage III, anemia, IDDM, asthma, and nephrolithiasis, who presents for evaluation of 6 weeks of productive cough that has now turned green. Patient now has left sided sinus tenderness, also loss of taste sensation, diarrhea, and tingling of hands and feet for 3 days. Patient also reports some increased shortness of breath / asthma exacerbation since this started. Patient took tylenol 2 times yesterday but reports it did little to help her. The patient denies chest pain, and dizziness. Denies fever, chills, nausea, vomit, and constipation. Denies dysuria, frequency, urgency and hematuria. PMD: Dr. Strickland Past History - Past Medical History Allergies/Adverse Reactions: Allergies Allergy/AdvReac Type Severity Reaction Status Date / Time No Known Allergies Allergy Verified 10/06/17 13:13 Home Medications: Ambulatory Orders Albuterol 0.083% Nebulizer Sarina [Ventolin 0.083% Nebulizer Soln -] 1 neb NEB Q6H PRN 10/06/17 Budesonide/Formeterol Fumarate [SYMBICORT 80/4.5mcg -] 1 inh PO DAILY 10/06/17 Ferrous Sulfate [Feosol] 325 mg PO DAILY 10/06/17 Insulin Glargine,Hum.rec.anlog [Lantus] 35 unit SQ BID 10/06/17 Valsartan [Diovan] 80 mg PO DAILY 10/06/17 metFORMIN HCL [Glucophage -] 1,000 mg PO BID 10/06/17 Guaifenesin [Mucinex] 600 mg PO BID #14 tab.er.12h 04/18/18 Insulin Lispro [Humalog] 100 unit SQ ASDIR 04/18/18 Levofloxacin [Levaquin] 750 mg PO DAILY #14 tablet 04/18/18 Anemia: Yes Asthma: Yes Cardiac Disorders: No COPD: No CHF: No Diabetes: Yes (iddm) Psychiatric Problems: Yes (DEPRESSION/ANXIETY/BIPOLAR) - Surgical History Abdominal Surgery: Yes Cholecystectomy: No - Reproductive History Dysfunctional Uterine Bleeding: Yes - Suicide/Smoking/Psychosocial Hx Smoking History: Never smoked Have you smoked in the past 12 months: No Number of Cigarettes Smoked Daily: 0 Hx Alcohol Use: No Drug/Substance Use Hx: No Substance Use Type: None Hx Substance Use Treatment: No Review of Systems - Review of Systems Comments:: 04/18/18 16:21 GENERAL/CONSTITUTIONAL: No fever or chills. No weakness. HEAD, EYES, EARS, NOSE AND THROAT: No change in vision. No ear pain or discharge. No sore throat. CARDIOVASCULAR: No chest pain or shortness of breath RESPIRATORY: +Cough as described w/ intermittent wheezing, no hemoptysis. GASTROINTESTINAL: +Diarrhea as described. No nausea, vomiting, or constipation. GENITOURINARY: No dysuria, frequency, or change in urination. MUSCULOSKELETAL: +Extremity parasthesias as described. No joint or muscle swelling or pain. No neck or back pain. SKIN: No rash NEUROLOGIC: No headache, vertigo, loss of consciousness, or change in strength/ sensation. ENDOCRINE: No increased thirst. No abnormal weight change HEMATOLOGIC/LYMPHATIC: No anemia, easy bleeding, or history of blood clots. ALLERGIC/IMMUNOLOGIC: No hives or skin allergy. *Physical Exam - Vital Signs Last Vital Signs Temp Pulse Resp BP Pulse Ox 98.1 F 104 H 20 112/88 100 04/18/18 15:46 04/18/18 15:46 04/18/18 15:46 04/18/18 15:46 04/18/18 15:46 - Physical Exam Comments: 04/18/18 16:21 GENERAL: Awake, alert, and fully oriented, in no acute distress HEAD: +Left sinus tenderness. No signs of trauma, normocephalic, atraumatic EYES: PERRLA, EOMI, sclera anicteric, conjunctiva clear ENT: +Nares boggy, oropharynx swollen. No exudates. Auricles normal inspection, hearing grossly normal, nares patent. Moist mucosa NECK: Normal ROM, supple, no lymphadenopathy, JVD, or masses LUNGS: +Diffusely wheezy in all quadrants. No distress, speaks full sentences, HEART: Regular rate and rhythm, normal S1 and S2, no murmurs, rubs or gallops, peripheral pulses normal and equal bilaterally. ABDOMEN: Soft, nontender, normoactive bowel sounds. No guarding, no rebound. No masses EXTREMITIES: Normal inspection, Normal range of motion, no edema. No clubbing or cyanosis. NEUROLOGICAL: Cranial nerves II through XII grossly intact. Normal speech, normal gait, no focal sensorimotor deficits SKIN: Warm, Dry, normal turgor, no rashes or lesions noted. ED Treatment Course - LABORATORY CBC & Chemistry Diagram: 04/18/18 16:52 04/18/18 16:52 Medical Decision Making - Medical Decision Making 04/18/18 17:49 Ms. Ramos is a 38 yo female w/ pmh as described who presents for evaluation of symptoms c/w uri vs. sinusitis. Infectious workup started with CXR, EKG, and labs as below. Labs significant for UTI. 04/18/18 18:05 Patient exam significant for findings c/w sinusitis. CXR negative, EKG non- concerning. Will treat w/ levaquin for sinusitis and UTI and provide ENT f/u. Patient verbalized understanding and will comply. Discharging to home. Laboratory Results - last 24 hr 04/18/18 04/18/18 04/18/18 16:18 16:52 16:52 WBC 12.4 H RBC 3.91 Hgb 11.8 Hct 33.3 MCV 85.0 MCH 30.2 MCHC 35.5 RDW 12.3 Plt Count 289 D MPV 9.4 Absolute Neuts (auto) 8.8 H Neutrophils % 70.2 Lymphocytes % 20.8 Monocytes % 6.9 Eosinophils % 1.1 Basophils % 1.0 Nucleated RBC % 0 Sodium 138 Potassium 4.4 Chloride 109 H Carbon Dioxide 20 L Anion Gap 9 BUN 28 H Creatinine 1.5 H Creat Clearance w eGFR 39.07 Random Glucose 128 H Lactic Acid Calcium 8.2 L Total Bilirubin 0.1 L AST 16 ALT 14 Alkaline Phosphatase 100 Total Protein 6.4 Albumin 2.2 L Urine Color Urine Appearance Urine pH Ur Specific Sarver Urine Protein Urine Glucose (UA) Urine Ketones Urine Blood Urine Nitrite Urine Bilirubin Urine Urobilinogen Ur Leukocyte Esterase Urine WBC (Auto) Urine RBC (Auto) Ur Epithelial Cells Urine Mucus Urine HCG, Qual Influenza A (Rapid) Negative Influenza B (Rapid) Negative 04/18/18 04/18/18 04/18/18 16:52 17:14 17:14 WBC RBC Hgb Hct MCV MCH MCHC RDW Plt Count MPV Absolute Neuts (auto) Neutrophils % Lymphocytes % Monocytes % Eosinophils % Basophils % Nucleated RBC % Sodium Potassium Chloride Carbon Dioxide Anion Gap BUN Creatinine Creat Clearance w eGFR Random Glucose Lactic Acid 1.0 Calcium Total Bilirubin AST ALT Alkaline Phosphatase Total Protein Albumin Urine Color Yellow Urine Appearance Cloudy Urine pH 5.0 Ur Specific Sarver 1.017 Urine Protein 3+ H Urine Glucose (UA) 3+ H Urine Ketones Negative Urine Blood Negative Urine Nitrite Negative Urine Bilirubin Negative Urine Urobilinogen Negative Ur Leukocyte Esterase 1+ H Urine WBC (Auto) 117 Urine RBC (Auto) 9 Ur Epithelial Cells Moderate Urine Mucus Rare Urine HCG, Qual Negative Influenza A (Rapid) Influenza B (Rapid) *DC/Admit/Observation/Transfer Diagnosis at time of Disposition: UTI (urinary tract infection) Qualifiers: Urinary tract infection type: site unspecified Hematuria presence: without hematuria Qualified Code(s): N39.0 - Urinary tract infection, site not specified Sinusitis Qualifiers: Sinusitis location: unspecified location Chronicity: unspecified Qualified Code (s): J32.9 - Chronic sinusitis, unspecified - Discharge Dispostion Disposition: HOME - Prescriptions Prescriptions: Levofloxacin [Levaquin] 750 mg PO DAILY #14 tablet - Referrals Referrals: Chaz Willson MD [Staff Physician] - - Patient Instructions Printed Discharge Instructions: DI for Sinusitis Additional Instructions: You were evaluated today in the ER and found to have sinusitis. We have sent antibiotics and another prescription to your pharmacy. Please take all medications as written. Follow-up with ENT using provided information as needed for further evaluation. Return to ER if any failure of symptoms to improve, worsening shortness of breath, pain, or other concerning symptoms. - Post Discharge Activity
[2018-04-18] MEDS ORDERED: SODIUM CHLORIDE 1,000 ML IV STA (16:45)
[2018-04-18] MEDS ORDERED: ACETAMINOPHEN 1000 MG/100 ML VIAL (NON FORMULARY) IVPB ONE (16:45)
--- NOTE | 2018-04-18 16:56 | PDOC ---
Attending Attestation - Resident Resident Name: Uri Price - ED Attending Attestation I have performed the following: I have examined & evaluated the patient, The case was reviewed & discussed with the resident, I agree w/resident's findings & plan, Exceptions are as noted - Medical Decision Making 04/18/18 16:56 I, Dr. Radha Calixto, DO, attest that this document has been prepared under my direction and personally reviewed by me in its entirety. I further attest, that it accurately reflects all work, treatment, procedures and medical decision -making performed by me. 04/18/18 18:03 a/p: 38yo female with worsening cough, urinary freq, and L facial pain -pt with upper tooth pain on L - sinus pressure -suspect sinusitis -rhinorrhea, nasal swelling, posterior pharynx erythematous without exudates -no cp/sob -had wheezing which has since resolved after a neb tx -will send labs, flu, cxr -will hydrate and reassess 04/18/18 18:05 uti and L sinus ttp will treat with levaquin will give first dose in ED has inhaler at home will give rx for abx will give ENT follow up stable for d/c to home labs reviewed, mildly elevated wbc from sinusitis and uti pt feeling much better speaking in full sentences on the phone lungs cta <Radha Calixto - Last Filed: 04/18/18 18:03> - HPI HPI: 04/18/18 17:37 The patient is a 38-year-old female with past medical history significant for PCOS, IDDM, Asthma, hx of Kidney stones, Kidney failure (stage III), anemia presents to the emergency department with a progressively worsening cough. The patient presents with 6 weeks of persistent productive cough, that had worsened to a greenish product. The patient reports since the presentation of the symptoms, the patients been having increased shortness of breath and cold symptoms. The patient reports current symptoms of left side facial maxillary sinus pressure, loss of taste and tingling sensation to the hands and feel that s been present for the past 3 days reports taking Tylenol, Nyquil and things for the cold symptoms, with mild relief. Denies fever, chills, headache, chest pain, abdominal pain, nausea, vomiting, constipation, hematuria, urgency to urinate, weakness or loss of sensation. Allergies: NKA Past surgical history: 2 C-sections, multiple lithotripsies for renal stones Social History: Former smoker, social drink 2-3 drinks per week. No recreational drug use PMD: Dr. Strickland. - Physicial Exam PE: 04/18/18 18:23 GENERAL: Awake, alert, and fully oriented, in no acute distress HEAD: No signs of trauma EYES: PERRLA, EOMI, sclera anicteric, conjunctiva clear ENT: +L. Sinus tenderness, bilateral ears clear, nares are erythematous and boggy. Posterior pharynx erthema no exudate, oropharynx clear without exudates. Moist mucosa NECK: Normal ROM, supple, no lymphadenopathy, JVD, or masses LUNGS: Breath sounds equal, clear to auscultation bilaterally. No wheezes, and no crackles HEART: Regular rate and rhythm, normal S1 and S2, no murmurs, rubs or gallops ABDOMEN: Soft, nontender, normoactive bowel sounds. No guarding, no rebound. No masses EXTREMITIES: Normal range of motion, no edema. No clubbing or cyanosis. No cords, erythema, or tenderness NEUROLOGICAL: Intact. Cranial nerves II through XII grossly intact. Normal speech. SKIN: Warm, Dry, normal turgor, no rashes or lesions noted. - Medical Decision Making 04/18/18 18:23 Documentation prepared by Catherine Rey, acting as medical office scheduler for Radha Calixto DO. <Catherine Rey - Last Filed: 04/18/18 18:24> Heart Score/ECG Review - ECG Intrepretation Comment:: 04/18/18 18:06 sinus at 100, nl axis, nl interval, no acute st/t wave findings <Radha Calixto - Last Filed: 04/18/18 18:03>
[2018-04-18] MEDS ORDERED: ALBUTEROL SO4 2.5/IPRATROPIUM 0.5 INH SOL 3 ML VIAL.NEB. NEB ONE (17:01)
[2018-04-18] MEDS ORDERED: ACETAMINOPHEN INJECTION 100 ML IVPB ONE (17:01)
[2018-04-18] MEDS: ALBUTEROL SO4 2.5/IPRATROPIUM 0.5 INH SOL 3 ML VIAL.NEB. NEB SCH ×4 (17:01→18:01)
[2018-04-18 17:02] LABS: EOS % 1.1 % (0-4.5); HEMATOCRIT 33.3 % (32.4-45.2); HEMOGLOBIN 11.8 GM/dL (10.7-15.3); LYMPH % 20.8 % (8-40); MCH 30.2 pg (25.7-33.7); MCHC 35.5 g/dl (32.0-36.0); MEAN PLT VOLUME 9.4 fl (7.5-11.1); MONO % 6.9 % (3.8-10.2); NEUT % 70.2 % (42.8-82.8); PLATELET COUNT 289 K/MM3 (134-434); RBC 3.91 M/mm3 (3.60-5.2); RDW 12.3 % (11.6-15.6); WHITE BLOOD COUNT 12.4 K/mm3 (4.0-10.0)
[2018-04-18 17:27] LABS: URINE APPEARANCE CLOUDY; URINE BILIRUBIN NEGATIVE (<2.0 mg/dL); URINE COLOR YELLOW; URINE GLUCOSE (UA) 3+ (NEGATIVE); URINE KETONE NEGATIVE (NEGATIVE); URINE LEUK ESTERASE 1+ (NEGATIVE); URINE NITRITE NEGATIVE (NEGATIVE); URINE PROTEIN 3+ (NEGATIVE); URINE UROBILINOGEN NEGATIVE mg/dL (0.2-1.0)
[2018-04-18 17:30] LABS: EPI CELLS MODERATE /HPF (FEW); URINE MUCUS RARE
[2018-04-18 17:40] LABS: ALBUMIN 2.2 g/dl (3.4-5.0); ALK PHOS 100 U/L (45-117); ANION GAP 9 MMOL/L (8-16); BILIRUBIN,TOTAL 0.1 mg/dL (0.2-1); BLOOD UREA NITROGEN 28 mg/dL (7-18); CALCIUM 8.2 mg/dL (8.5-10.1); CHLORIDE 109 mmol/L (98-107); CO2 20 mmol/L (21-32); CREATININE 1.5 mg/dL (0.55-1.3); GLUCOSE,RANDOM 128 mg/dL (74-106); POTASSIUM 4.4 mmol/L (3.5-5.1); SGOT/AST 16 U/L (15-37); SGPT/ALT 14 U/L (13-61); SODIUM 138 mmol/L (136-145); TOT PROT 6.4 g/dl (6.4-8.2)
[2018-04-18 18:31] VITALS: BP 118/73; PULSE 82; TEMP 98.8
[2018-04-18] MEDS ORDERED: IPRATROPIUM BR 0.02% 0.5 MG/2.5 ML VIAL.NEB. NEB SCH (20:00)
--- NOTE | 2018-04-19 10:56 | EKG ---
Test Reason : Blood Pressure : / mmHG Vent. Rate : 100 BPM Atrial Rate : 100 BPM P-R Int : 136 ms QRS Dur : 078 ms QT Int : 334 ms P-R-T Axes : 075 064 046 degrees QTc Int : 430 ms NORMAL SINUS RHYTHM NORMAL ECG WHEN COMPARED WITH ECG OF 14-NOV-2015 18:40, NO SIGNIFICANT CHANGE WAS FOUND Confirmed by RD NAVA MD ([id number]) on 04/19/2018 10:56:20 AM Referred By: Confirmed By:RD NAVA MD
== END 2018-04-18 18:31 | disposition home or self-care (01) ==
LOC: JER 15:36
PROC: 3E0F7GC Introduction of Other Therapeutic Substance into Respiratory Tract, Via Natural or Artificial Opening (ICD-10-PCS; principal; 2018-04-18)
PROC: 3E033NZ Introduction of Analgesics, Hypnotics, Sedatives into Peripheral Vein, Percutaneous Approach (ICD-10-PCS; 2018-04-18)
DX: N39.0 Urinary tract infection, site not specified (principal); J32.9 Chronic sinusitis, unspecified; E10.9 Type 1 diabetes mellitus without complications; Z79.4 Long term (current) use of insulin; N18.3 Chronic kidney disease, stage 3 (moderate); D64.9 Anemia, unspecified; E28.2 Polycystic ovarian syndrome; F41.8 Other specified anxiety disorders; F31.9 Bipolar disorder, unspecified
CPT/HCPCS: 36415; 71046-TC-FY; 80053; 81003; 81015; 83605; 84703; 85025; 87086; 87804; 93005; 93010; 94640; 96365; 99284-25; J0131; J7030

== ENCOUNTER 2018-05-28 18:01 | Emergency (ER) | payer OTHER ==
--- NOTE | 2018-05-28 18:21 | PDOC ---
Rapid Medical Evaluation Medical Evaluation: Allergies Allergy/AdvReac Type Severity Reaction Status Date / Time No Known Allergies Allergy Verified 10/06/17 13:13 05/28/18 18:15 I have performed a brief in-person evaluation of this patient. The patient presents with a chief complaint of:R flank pain since last night. + subj fever. No dysuria. H/o polycystic kidney dze, ?kidney stones, IDDM Pertinent physical exam findings:armando uncomfortable, writhing in pain, tachy to 109 I have ordered the following:labs The patient will proceed to the ED for further evaluation. 05/28/18 18:25 Discharge Disposition - Diagnosis Right flank pain - Referrals - Patient Instructions - Post Discharge Activity
[2018-05-28 18:22] VITALS: BP 148/79; PULSE 109; TEMP 98.5; BMI 35.2
[2018-05-28 19:02] LABS: BASO % 1.2 % (0-2.0); EOS % 1.6 % (0-4.5); HEMATOCRIT 31.4 % (32.4-45.2); HEMOGLOBIN 11.1 GM/dL (10.7-15.3); MCH 29.9 pg (25.7-33.7); MCHC 35.2 g/dl (32.0-36.0); MEAN CELL VOLUME 84.8 fl (80-96); MEAN PLT VOLUME 9.7 fl (7.5-11.1); MONO % 5.8 % (3.8-10.2); NEUT % 67.4 % (42.8-82.8); PLATELET COUNT 236 K/MM3 (134-434); RDW 12.5 % (11.6-15.6); WHITE BLOOD COUNT 8.8 K/mm3 (4.0-10.0)
--- NOTE | 2018-05-28 19:04 | PDOC ---
History of Present Illness - General Chief Complaint: Pain, Acute Stated Complaint: KIDNEY PAIN Time Seen by Provider: 05/28/18 18:19 History Source: Patient Exam Limitations: No Limitations - History of Present Illness Travel History: No Initial Comments: 05/28/18 19:53 Best Contact: PCP: Dr. Mustafa/Jonathan christine Pmhx: IDDM, asthma/no history of admissions or recent intubations, PCO S Pshx: 2018: Lithotripsy by Dr. Rosario/urologist Allergies: NO KNOWN DRUG ALLERGIES FH: Denies Social Hx: Cigarettes/ denies Alcohol/ social Drugs/denies LMP: March/patient is currently on Depo-Provera 38-year-old female presents to the emergency department complaining of a sided flank pain since approximately 2300 hrs. last evening while resting. Pain is described as 7/10 sharp nonradiating intermittent discomfort without nausea/ vomiting, fever/chills/diarrhea, headache, dizziness, lightheadedness, chest pain, shortness of breath, neck/back pains,, abdominal pains, urinary symptoms: Frequency/urgency/hesitancy, hematuria. The pain is exacerbated on certain movements and alleviated minimally at rest. Patient last took Tylenol at 1400 hrs. today with minimal relief. Patient's had previous similar symptoms from renal colic. Past History - Past Medical History Allergies/Adverse Reactions: Allergies Allergy/AdvReac Type Severity Reaction Status Date / Time No Known Allergies Allergy Verified 05/28/18 18:20 Home Medications: Ambulatory Orders Albuterol 0.083% Nebulizer Sarina [Ventolin 0.083% Nebulizer Soln -] 1 neb NEB Q6H PRN 10/06/17 Budesonide/Formeterol Fumarate [SYMBICORT 80/4.5mcg -] 1 inh PO DAILY 10/06/17 Ferrous Sulfate [Feosol] 325 mg PO DAILY 10/06/17 Insulin Glargine,Hum.rec.anlog [Lantus] 40 unit SQ BID 10/06/17 metFORMIN HCL [Glucophage -] 1,000 mg PO BID 10/06/17 Guaifenesin [Mucinex] 600 mg PO BID #14 tab.er.12h 04/18/18 Insulin Lispro [Humalog] 100 unit SQ ASDIR 04/18/18 Esomeprazole Magnesium [Nexium 24Hr] 40 mg PO DAILY 05/28/18 Oxycodone HCl/Acetaminophen [Percocet 5-325 mg Tablet] 1 tab PO Q6H #12 tablet MDD 4 05/29/18 Anemia: Yes Asthma: Yes Cardiac Disorders: No COPD: No CHF: No Diabetes: Yes (iddm) Psychiatric Problems: Yes (DEPRESSION/ANXIETY/BIPOLAR) - Surgical History Abdominal Surgery: Yes Cholecystectomy: No - Reproductive History Dysfunctional Uterine Bleeding: Yes - Suicide/Smoking/Psychosocial Hx Smoking History: Never smoked Have you smoked in the past 12 months: No Number of Cigarettes Smoked Daily: 0 Hx Alcohol Use: No Drug/Substance Use Hx: No Substance Use Type: None Hx Substance Use Treatment: No Abd/GI Specific PMHX - Complaint Specific PMHX Colitis: No Diverticulitis: No Gall Bladder Disease: No GERD: No Review of Systems - Review of Systems Able to Perform ROS?: Yes Comments:: 05/28/18 19:56 CONSTITUTIONAL: Absent: fever, chills, diaphoresis, generalized weakness, malaise, loss of appetite HEENT: Absent: rhinorrhea, nasal congestion, throat pain, throat swelling, difficulty swallowing, mouth swelling, ear pain, eye pain, visual Changes CARDIOVASCULAR: Absent: chest pain, loss of consciousness, palpitations, irregular heart rate, peripheral edema RESPIRATORY: Absent: cough, shortness of breath, dyspnea with exertion, orthopnea, wheezing, stridor, hemoptysis GASTROINTESTINAL: Absent: abdominal pain, abdominal distension, nausea, vomiting, diarrhea, constipation, melena, hematochezia GENITOURINARY: +Right flank pain Absent: dysuria, frequency, urgency, hesitancy, hematuria, genital pain MUSCULOSKELETAL: Absent: myalgia, arthralgia, joint swelling SKIN: Absent: rash, itching, pallor HEMATOLOGIC/IMMUNOLOGIC: Absent: easy bleeding, easy bruising, lymphadenopathy, frequent infections ENDOCRINE: Absent: unexplained weight gain, unexplained weight loss, heat intolerance, cold intolerance NEUROLOGIC: Absent: headache, focal weakness or paresthesias, dizziness, unsteady gait, seizure, mental status changes, bladder or bowel incontinence PSYCHIATRIC: Absent: anxiety, depression, suicidal or homicidal ideation, hallucinations. Is the patient limited [place] proficient: No *Physical Exam - Vital Signs Last Vital Signs Temp Pulse Resp BP Pulse Ox 98.5 F 109 H 19 148/79 100 05/28/18 18:20 05/28/18 18:20 05/28/18 18:20 05/28/18 18:20 05/28/18 18:20 - Physical Exam Comments: 05/28/18 19:56 GENERAL: Well developed, well nourished. Awake and alert. No acute distress. HEENT: Normocephalic, atraumatic. PERRLA, EOMI. No conjunctival pallor. Sclera are non- icteric. Moist mucous membranes. Oropharynx is clear. NECK: Supple. Full ROM. No JVD. Carotid pulses 2+ and symmetric, without bruits. No thyromegaly. No lymphadenopathy. CARDIOVASCULAR: Regular rate and rhythm. No murmurs, rubs, or gallops. Distal pulses are 2+ and symmetric. PULMONARY: No evidence of respiratory distress. Lungs clear to auscultation bilaterally. No wheezing, rales or rhonchi. ABDOMINAL: +right flank pain on percussion Soft. Non-tender. Non-distended. No rebound or guarding. No organomegaly. Normoactive bowel sounds. MUSCULOSKELETAL Normal range of motion at all joints. No bony deformities or tenderness. EXTREMITIES: No cyanosis. No clubbing. No edema. No calf tenderness. SKIN: Warm and dry. Normal capillary refill. No rashes. No jaundice. NEUROLOGICAL: Alert, awake, appropriate. Cranial nerves 2-12 intact. No deficits to light touch and temperature in face, upper extremities and lower extremities. No motor deficits in the in face, upper extremities and lower extremities. Normoreflexic in the upper and lower extremities. Normal speech. Toes are down- going bilaterally. Gait is normal without ataxia. PSYCHIATRIC: Cooperative. Good eye contact. Appropriate mood and affect. Moderate Sedation - Procedure Monitoring Vital Signs: Procedure Monitoring Vital Signs Temperature 98.5 F 05/28/18 18:20 Pulse Rate 109 H 05/28/18 18:20 Respiratory Rate 19 05/28/18 18:20 Blood Pressure 148/79 05/28/18 18:20 O2 Sat by Pulse Oximetry (%) 100 05/28/18 18:20 ED Treatment Course - LABORATORY CBC & Chemistry Diagram: 05/28/18 18:45 05/28/18 18:45 - RADIOLOGY Radiograph Interpretation: 05/28/18 19:[address]: In comparison to recently perform CT studies including 06/13/2016 high attenuation material is again seen interpose between the pancreatic tail and spleen at the site of the 4.9 cm cystic structure identified on CT studies performed in 2005. The high attenuation material presumably represents postsurgical/postprocedural material. Noted on multiple previous CT studies findings are noted consistent with adult polycystic kidney disease. No hydronephrosis Progress Note - Progress Note Progress Note: Spoke to patient's physician's partner/Dr. Nguyễn Adrian states patient indeed has polycystic kidneys 0105hrs: Patient insists on being discharged. Patient states she feels pain- free. Patient will follow up with her urologist/PMD *DC/Admit/Observation/Transfer Diagnosis at time of Disposition: Right flank pain, Hyperglycemia - Discharge Dispostion Disposition: HOME Condition at time of disposition: Stable Decision to Admit order: No - Prescriptions Prescriptions: Oxycodone HCl/Acetaminophen [Percocet 5-325 mg Tablet] 1 tab PO Q6H #12 tablet MDD 4 - Referrals Referrals: ON STAFF,NOT [Primary Care Provider] - Deon Rosario [Non Staff, Medical] - - Patient Instructions Printed Discharge Instructions: DI for Flank Pain Additional Instructions: Be sure to follow-up with your urologist on Thursday Percocet as prescribed. Patient to take it sparingly Return back to the ER for severe/persistent or worsening symptoms. You were given insulin 10 units subcutaneous in the emergency department because you're glucose was 456. 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
[2018-05-28 19:57] LABS: ALBUMIN 2.3 g/dl (3.4-5.0); ALK PHOS 122 U/L (45-117); ANION GAP 11 MMOL/L (8-16); BILIRUBIN,TOTAL 0.2 mg/dL (0.2-1); BLOOD UREA NITROGEN 33 mg/dL (7-18); CALCIUM 8.3 mg/dL (8.5-10.1); CHLORIDE 100 mmol/L (98-107); CO2 19 mmol/L (21-32); CREATININE 2.1 mg/dL (0.55-1.3); POTASSIUM 4.5 mmol/L (3.5-5.1); SGOT/AST 13 U/L (15-37); SGPT/ALT 17 U/L (13-61); SODIUM 130 mmol/L (136-145)
[2018-05-28 20:05] LABS: GLUCOSE,RANDOM 455 mg/dL (74-106)
[2018-05-28 20:46] LABS: URINE APPEARANCE CLOUDY; URINE BILIRUBIN NEGATIVE (<2.0 mg/dL); URINE COLOR LTYELLOW; URINE GLUCOSE (UA) 3+ (NEGATIVE); URINE KETONE NEGATIVE (NEGATIVE); URINE LEUK ESTERASE 1+ (NEGATIVE); URINE NITRITE NEGATIVE (NEGATIVE); URINE PROTEIN 3+ (NEGATIVE); URINE UROBILINOGEN NEGATIVE mg/dL (0.2-1.0)
[2018-05-28] MEDS ORDERED: INSULIN REGULAR HUMAN 100 UNITS/ML *VIAL SQ ONE (20:53)
[2018-05-28 20:57] LABS: EPI CELLS FEW /HPF (FEW); URINE MUCUS RARE
[2018-05-28] MEDS ORDERED: INSULIN REGULAR HUMAN 100 UNITS/ML *VIAL ONE (21:01)
[2018-05-28] MEDS ORDERED: SODIUM CHLORIDE 1,000 ML IV STA (22:03)
[2018-05-28] MEDS ORDERED: morphine CARPU-JECT 4 MG/1 ML DISP.SYRIN IVPUSH ONE (22:23)
[2018-05-28] MEDS ORDERED: morphine SULFATE 4 MG/ML VIAL ONE (23:04)
== END 2018-05-29 01:40 | disposition home or self-care (01) ==
LOC: JER 18:01
PROC: 3E0337Z Introduction of Electrolytic and Water Balance Substance into Peripheral Vein, Percutaneous Approach (ICD-10-PCS; principal; 2018-05-28)
PROC: 3E033NZ Introduction of Analgesics, Hypnotics, Sedatives into Peripheral Vein, Percutaneous Approach (ICD-10-PCS; 2018-05-28)
PROC: 3E013VG Introduction of Insulin into Subcutaneous Tissue, Percutaneous Approach (ICD-10-PCS; 2018-05-28)
DX: R10.31 Right lower quadrant pain (principal); E10.65 Type 1 diabetes mellitus with hyperglycemia; Z79.4 Long term (current) use of insulin; D64.9 Anemia, unspecified; Q61.3 Polycystic kidney, unspecified
CPT/HCPCS: 36415; 74176; 80053; 81003; 81015; 82962; 84703; 85025; 87086; 96361; 96372; 96374; 99283-25; J7030

== ENCOUNTER 2019-02-28 17:04 | Emergency (ER) | payer OTHER ==
[2019-02-28 17:11] VITALS: BMI 36.0
--- NOTE | 2019-02-28 17:28 | PDOC ---
History of Present Illness - General Chief Complaint: Blood Sugar Problem Stated Complaint: EAR PAIN, HIGH BLOOD SUGAR Time Seen by Provider: 02/28/19 17:28 Past History - Past Medical History Allergies/Adverse Reactions: Allergies Allergy/AdvReac Type Severity Reaction Status Date / Time No Known Allergies Allergy Verified 02/28/19 17:11 Home Medications: Ambulatory Orders Albuterol 0.083% Nebulizer Sarina [Ventolin 0.083% Nebulizer Soln -] 1 neb NEB Q6H PRN 10/06/17 Budesonide/Formeterol Fumarate [SYMBICORT 80/4.5mcg -] 1 inh PO DAILY 10/06/17 Ferrous Sulfate [Feosol] 325 mg PO DAILY 10/06/17 Insulin Glargine,Hum.rec.anlog [Lantus] 40 unit SQ BID 10/06/17 metFORMIN HCL [Glucophage -] 1,000 mg PO BID 10/06/17 Guaifenesin [Mucinex] 600 mg PO BID #14 tab.er.12h 04/18/18 Insulin Lispro [Humalog] 100 unit SQ ASDIR 04/18/18 Esomeprazole Magnesium [Nexium 24Hr] 40 mg PO DAILY 05/28/18 Oxycodone HCl/Acetaminophen [Percocet 5-325 mg Tablet] 1 tab PO Q6H #12 tablet MDD 4 05/29/18 Anemia: Yes Asthma: Yes Cardiac Disorders: No COPD: No CHF: No Diabetes: Yes (iddm) Psychiatric Problems: Yes (DEPRESSION/ANXIETY/BIPOLAR) Other medical history: policystic kidney dis - Surgical History Abdominal Surgery: Yes Cholecystectomy: No - Reproductive History Dysfunctional Uterine Bleeding: Yes - Psycho Social/Smoking Cessation Hx Smoking History: Never smoked Have you smoked in the past 12 months: No Number of Cigarettes Smoked Daily: 0 Information on smoking cessation initiated: No Hx Alcohol Use: No Drug/Substance Use Hx: No Substance Use Type: None Hx Substance Use Treatment: No *Physical Exam - Vital Signs Last Vital Signs Temp Pulse Resp BP Pulse Ox 98.8 F 93 H 19 109/59 L 99 02/28/19 17:09 02/28/19 17:09 02/28/19 17:09 02/28/19 17:09 02/28/19 17:09 ED Treatment Course - LABORATORY CBC & Chemistry Diagram: 02/28/19 18:45 02/28/19 18:45 Medical Decision Making - Medical Decision Making HPI: 39yo F with PMH of poorly controlled DM, asthma, polycystic kidney disease, nephrolithiasis presenting with hyperglycemia, "grogginess," ear pain, and extremity numbing/tingling/pain. Patient states though she does not check her sugars as often as she is supposed to, her levels are usually 200s-300s. At 8am , her levels were too high to calculate and so she gave herself 12units humalog and 45units lantus. At 11am, patient checked her glucose again and it was too high to calculate: she administered 15units humalog. At 11:35, she gave herself another 10 units of humalog and she had a glucose 467. She called the ambulance when she felt "groggy." EMS checked her glucose and it was in the 300s. All day , patient did not eat as she was afraid of making her sugars too high. Patient has had left ear pain radiating down her jaw x 2-3 weeks. She has pain and poor sensation in her extremities and feels it has worsened as her sugars are not under control. No fevers, chills, or chest pain. PCP: Dr. Farzana Amezcua ROS: Constitutional: no fever, +chills HEENT: no throat pain, +L. ear pain Cardiovascular: no chest pain, no palpitations Respiratory: no cough, +shortness of breath Gastrointestinal: +diarrhea, +constipation Genitourinary: no dysuria, no hematuria Musculoskeletal: no myalgia, no arthralgia Skin: no rash, no itching Neurologic: +headache, +weakness PE: General: Awake, alert, and fully oriented, morbidly obese Head: No signs of trauma Eyes: EOMI, sclera anicteric ENT: Moist mucus membranes, bilateral TMs normal Neck: Normal ROM, supple Lungs: Lungs clear, Normal breath sounds Cardio: Regular rhythm, S1 and S2 present Abdomen: Soft, nontender. No guarding, no rebound, no masses Extremities: Normal range of motion, Distal pulses present SKIN: Warm, Dry, normal turgor Neurologic: Cranial nerves II through XII grossly intact. Normal speech ED Course/MDM: DDX including but not limited to hyperglycemia, UTI, PNA, ACS, diabetic neuropathy Labs, EKG, CXR Fluids Ofirmev 02/28/19 17:28 Patient signed out to Dr. Rosales and night team 02/28/19 19:10 Discharge - Discharge Information Problems reviewed: Yes Clinical Impression/Diagnosis: Hyperglycemia Condition: Improved Disposition: AGAINST MEDICAL ADVICE - Follow up/Referral Referrals: Chaparrita Lyman MD [Non Staff, Medical] - Farzana Amezcua MD [Primary Care Provider] - Ronnell Al MD [Non Staff, Medical] - Henry Alvarado MD [Staff Physician] - Gera Shell MD [Staff Physician] - - Patient Discharge Instructions Patient Printed Discharge Instructions: DI for Hyperglycemia -- Adult Additional Instructions: You were seen in the Emergency Department for evaluation of hyperglycemia. Review the handout provided at discharge. Maintain your follow up with your primary care provider on Thursday and the referrals given within a week Return to the Emergency Department if you mildred - Post Discharge Activity
[2019-02-28] MEDS ORDERED: ACETAMINOPHEN 1000 MG/100 ML VIAL (NON FORMULARY) IVPB ONE (18:04)
[2019-02-28] MEDS ORDERED: SODIUM CHLORIDE 1,000 ML IV STA (18:04)
--- NOTE | 2019-02-28 18:09 | PDOC ---
Attending Attestation - Resident Resident Name: Radha WagnerKarine - ED Attending Attestation I have performed the following: I have examined & evaluated the patient, The case was reviewed & discussed with the resident, I agree w/resident's findings & plan, Exceptions are as noted - HPI HPI: 02/28/19 18:08 103, elevated otherwise her labs were 39-year-old female history of diabetes polycystic kidney disease obesity here today complaining of high sugars. Patient states her sugars have been running high for the last 3 days over the weekend she was celebrating with her mom reports having drank Kaela ferrera when she checked her sugars this a.m. it was saying too high to count her register. She did take her usual 45 units of Lantus in the morning followed by 12 units of Humalog. When she checked an hour later it was still reading high so she took an additional 15 units. States now she is having tingling in her extremities and generalized fatigue and weakness no fevers or chills no urinary complaints no nausea no vomiting no chest pain no shortness of breath - Physicial Exam PE: 02/28/19 18:11 Awake alert no acute distress lungs are clear bilaterally heart is regular without murmurs rubs or gallops abdomen is soft obese nontender extremities are warm and well-perfused neurologic the patient is awake alert oriented x3 - Medical Decision Making 02/28/19 18:12 39-year-old female history of diabetes polycystic kidneys here today with high sugars feeling fatigue and paresthesia. Differential includes diabetic neuropathy elect light of normalities such as hypo-or hyperkalemia calcium irregularities anemia hyponatremia dehydration infection such as UTI plan CBC CMP UA UCG EKG troponin chest x-ray
[2019-02-28] MEDS ORDERED: SODIUM CHLORIDE 0.9% 1000 ML INFUS.BAG IV ONE (19:02)
[2019-02-28 19:03] LABS: BASO % 1.2 % (0-2.0); EOS % 1.1 % (0-4.5); HEMATOCRIT 26.1 % (32.4-45.2); HEMOGLOBIN 8.9 GM/dL (10.7-15.3); LYMPH % 23.3 % (8-40); MCH 29.5 pg (25.7-33.7); MEAN CELL VOLUME 86.7 fl (80-96); MEAN PLT VOLUME 9.2 fl (7.5-11.1); MONO % 6.3 % (3.8-10.2); NEUT % 68.1 % (42.8-82.8); PLATELET COUNT 276 K/MM3 (134-434); RBC 3.01 M/mm3 (3.60-5.2); RDW 12.7 % (11.6-15.6); WHITE BLOOD COUNT 10.4 K/mm3 (4.0-10.0)
[2019-02-28 19:07] LABS: EPI CELLS 7.4 /HPF (0-5/HPF); HYALINE CASTS 5 /lpf (0-8); PH,URINE 5.5 (5.0-8.0); URINE APPEARANCE CLOUDY; URINE BACTERIA 175.5 /hpf (NEGATIVE); URINE BILIRUBIN NEGATIVE (NEGATIVE); URINE COLOR YELLOW; URINE GLUCOSE (UA) 2+ (NEGATIVE); URINE KETONE NEGATIVE (NEGATIVE); URINE LEUK ESTERASE NEGATIVE (NEGATIVE); URINE NITRITE NEGATIVE (NEGATIVE); URINE PROTEIN 4+ (NEGATIVE); URINE UROBILINOGEN 0.2 mg/dL (0.2-1.0)
[2019-02-28] MEDS ORDERED: ACETAMINOPHEN INJECTION 100 ML IVPB ONE (19:10)
[2019-02-28 19:32] LABS: ALBUMIN 2.3 g/dl (3.4-5.0); ALK PHOS 112 U/L (45-117); ANION GAP 8 MMOL/L (8-16); BILIRUBIN,TOTAL 0.2 mg/dL (0.2-1); BLOOD UREA NITROGEN 48.4 mg/dL (7-18); CHLORIDE 104 mmol/L (98-107); CO2 20 mmol/L (21-32); CREATININE 2.3 mg/dL (0.55-1.3); GLUCOSE,RANDOM 183 mg/dL (74-106); SGOT/AST 16 U/L (15-37); SGPT/ALT 27 U/L (13-61); SODIUM 133 mmol/L (136-145); TOT PROT 6.2 g/dl (6.4-8.2)
[2019-02-28 20:19] VITALS: TEMP 98.6
[2019-02-28 20:38] LABS: URINE RBC 7 /hpf (0-4)
[2019-02-28 20:39] LABS: URINE WBC 15 /hpf (0-5)
--- NOTE | 2019-02-28 20:58 | PDOC ---
*Physical Exam - Vital Signs Last Vital Signs Temp Pulse Resp BP Pulse Ox 98.6 F 86 20 129/75 100 02/28/19 20:17 02/28/19 20:17 02/28/19 20:17 02/28/19 20:17 02/28/19 20:17 - Physical Exam Comments: GENERAL: Awake, alert, and oriented to person/place/time, in no acute distress HEAD: No signs of trauma, normocephalic, atraumatic EYES: PERRLA, EOMI, sclera anicteric, conjunctiva clear ENT: Hearing grossly normal, nares patent, oropharynx clear without exudates. Moist mucosa LUNGS: No distress, speaks in full sentences, symmetric chest rise EXTREMITIES: Normal inspection, Normal range of motion, no edema. NEUROLOGICAL: Cranial nerves II through XII grossly intact. Normal speech SKIN: Warm, Dry ED Treatment Course - LABORATORY CBC & Chemistry Diagram: 02/28/19 18:45 02/28/19 18:45 - ADDITIONAL ORDERS Additional order review: Laboratory Results 02/28/19 02/28/19 02/28/19 20:33 18:45 18:45 Sodium Potassium Chloride Carbon Dioxide Anion Gap BUN Creatinine Est GFR (CKD-EPI)AfAm Est GFR (CKD-EPI)NonAf POC Glucometer 150 Random Glucose Calcium Total Bilirubin AST ALT Alkaline Phosphatase Troponin I Total Protein Albumin Urine Color Yellow Urine Appearance Cloudy Urine pH 5.5 Ur Specific [place] 1.019 Urine Protein 4+ H Urine Glucose (UA) 2+ H Urine Ketones Negative Urine Blood 1+ H Urine Nitrite Negative Urine Bilirubin Negative Urine Urobilinogen 0.2 Ur Leukocyte Esterase Negative Urine WBC (Auto) 15 Urine RBC (Auto) 7 Urine Casts (Auto) 5 U Epithel Cells (Auto) 7.4 Urine Bacteria (Auto) 175.5 Urine HCG, Qual Negative 02/28/19 02/28/19 18:45 18:31 Sodium 133 L Potassium 4.0 Chloride 104 Carbon Dioxide 20 L Anion Gap 8 BUN 48.4 H Creatinine 2.3 H Est GFR (CKD-EPI)AfAm 30.23 Est GFR (CKD-EPI)NonAf 26.09 POC Glucometer 186 Random Glucose 183 H Calcium 8.0 L Total Bilirubin 0.2 AST 16 ALT 27 Alkaline Phosphatase 112 Troponin I < 0.02 Total Protein 6.2 L Albumin 2.3 L Urine Color Urine Appearance Urine pH Ur Specific [place] Urine Protein Urine Glucose (UA) Urine Ketones Urine Blood Urine Nitrite Urine Bilirubin Urine Urobilinogen Ur Leukocyte Esterase Urine WBC (Auto) Urine RBC (Auto) Urine Casts (Auto) U Epithel Cells (Auto) Urine Bacteria (Auto) Urine HCG, Qual 02/28/19 02/28/19 02/28/19 20:33 18:45 18:31 RBC 3.01 L MCV 86.7 MCHC 34.0 RDW 12.7 MPV 9.2 Neutrophils % 68.1 Lymphocytes % 23.3 Monocytes % 6.3 Eosinophils % 1.1 Basophils % 1.2 POC Glucometer 150 186 - Medications Given in the ED: ED Medications Discontinued Medications Generic Name Dose Route Start Last Admin Trade Name [place] PRN Reason Stop Dose Admin Acetaminophen 1,000 mg 02/28/19 18:04 02/28/19 19:08 Ofirmev Injection - IVPB 02/28/19 18:05 1,000 mg ONCE ONE Administration Sodium Chloride 1,000 mls @ 1,000 mls/hr 02/28/19 18:04 02/28/19 19:07 Normal Saline - IV 02/28/19 19:03 1,000 mls/hr ASDIR STA Administration Sodium Chloride 1,000 ml 02/28/19 19:02 02/28/19 19:33 Normal Saline - IV 02/28/19 19:03 1,000 ml ONCE ONE Administration Medical Decision Making - Medical Decision Making Repeat BGM 150 Pt eating and drinking now and tolerating it well Pt wound like to go home at this time Pt educated on insulin use and importance of not taking more than prescribed Pt to have f/u on Thursday with her PCP Rx to refill pt's insulin The pt wishes to leave AMA The patient understands the risks and complications that may result from the refusal of medical care and admission which includes and permanent disability. The patient has the mental capacity of understanding the risks of refusing care and is capable of making an informed decision. The patient was instructed to return to the emergency department should she change her mind regarding medical care or should her condition worsen. The patient signed the Against Medical Advice form. Instructions and return precautions given to pt Referrals for Endocrinology and ENT provided Dispo: AMA 02/28/19 20:55 Discharge - Discharge Information Problems reviewed: Yes Clinical Impression/Diagnosis: Hyperglycemia Condition: Good Disposition: AGAINST MEDICAL ADVICE - Admission No - Follow up/Referral Referrals: Farzana Amezcua MD [Primary Care Provider] - Chaparrita Lyman MD [Non Staff, Medical] - Ronnell Al MD [Non Staff, Medical] - Henry Alvarado MD [Staff Physician] - Gera Shell MD [Staff Physician] - - Patient Discharge Instructions Patient Printed Discharge Instructions: DI for Hyperglycemia -- Adult Additional Instructions: You were seen in the Emergency Department for evaluation of hyperglycemia. Review the handout provided at discharge. Maintain your follow up with your primary care provider on Thursday and the referrals given within a week Return to the Emergency Department if you mildred - Post Discharge Activity
[2019-02-28 22:50] VITALS: BP 120/67; PULSE 85
--- NOTE | 2019-03-01 12:06 | EKG ---
Test Reason : Blood Pressure : / mmHG Vent. Rate : 088 BPM Atrial Rate : 088 BPM P-R Int : 168 ms QRS Dur : 084 ms QT Int : 346 ms P-R-T Axes : 058 023 018 degrees QTc Int : 418 ms NORMAL SINUS RHYTHM POSSIBLE LEFT ATRIAL ENLARGEMENT LOW VOLTAGE QRS BORDERLINE ECG WHEN COMPARED WITH ECG OF 18-APR-2018 16:52, NONSPECIFIC T WAVE ABNORMALITY NOW EVIDENT IN ANTERIOR LEADS Confirmed by Umberto Villegas ([id number]) on 03/01/2019 12:06:18 PM Referred By: Confirmed By:Umberto Villegas
== END 2019-02-28 22:59 | disposition left against medical advice (07) ==
LOC: JER 17:04
PROC: 3E0337Z Introduction of Electrolytic and Water Balance Substance into Peripheral Vein, Percutaneous Approach (ICD-10-PCS; principal; 2019-02-28)
PROC: 3E033NZ Introduction of Analgesics, Hypnotics, Sedatives into Peripheral Vein, Percutaneous Approach (ICD-10-PCS; 2019-02-28)
DX: E10.65 Type 1 diabetes mellitus with hyperglycemia (principal); Z79.4 Long term (current) use of insulin; D64.9 Anemia, unspecified; J45.909 Unspecified asthma, uncomplicated; F31.9 Bipolar disorder, unspecified; F41.8 Other specified anxiety disorders; Q61.3 Polycystic kidney, unspecified; R53.1 Weakness; H92.02 Otalgia, left ear; R20.2 Paresthesia of skin; E66.9 Obesity, unspecified; Z68.36 Body mass index [BMI] 36.0-36.9, adult
CPT/HCPCS: 36415; 70450-TC; 71045-TC-FY; 80053; 81003; 82962; 84484; 84703; 85025; 87086; 93005; 93010; 96361; 96374; 99285-25; J0131; J7030

== ENCOUNTER 2019-11-17 17:23 | Inpatient (IN) | payer OTHER ==
[2019-11-17 17:29] VITALS: BMI 36.0
--- NOTE | 2019-11-17 19:13 | PDOC ---
History of Present Illness - General Chief Complaint: Vaginal Bleeding Stated Complaint: VAGINAL BLEEDING Time Seen by Provider: 11/17/19 18:14 History Source: Patient Exam Limitations: No Limitations - History of Present Illness Initial Comments: HPI: 39 y/o female presenting to [facility] ER complaining of chronic lower abdominal pain and vaginal bleeding. Pt reports these symptoms started last year after her last Depo shot. Using "a lot - too many to count" number of feminine pads. Became more fatigued and generally weak today. Was evaluated by her PCP and told to go to the ER for evaluation of possible anemia. Denies bleeding gums, chest pain, SOB, syncope, or infectious symptoms. Of note, the pt was hospitalized at this facility in September with COVID-19 infection. CAR HIKER Hx: - Believes her last PAP smear was three years ago, denies any h/o abnormal results - Has not followed up with new CAR HIKER referral - Depo shot was given by her PCP Past History - Medical History Allergies/Adverse Reactions: Allergies Allergy/AdvReac Type Severity Reaction Status Date / Time No Known Allergies Allergy Verified 11/17/19 17:26 Home Medications: Ambulatory Orders Albuterol 0.083% Nebulizer Sairna [Ventolin 0.083% Nebulizer Soln -] 1 neb NEB Q6H PRN 10/06/17 Budesonide/Formeterol Fumarate [SYMBICORT 80/4.5mcg -] 1 inh PO DAILY 10/06/17 Ferrous Sulfate [Feosol] 325 mg PO DAILY 10/06/17 Insulin Glargine,Hum.rec.anlog [Lantus] 40 unit SQ BID 10/06/17 Insulin Lispro [Humalog] 0 unit SQ ASDIR 04/18/18 Esomeprazole Magnesium [Nexium 24Hr] 40 mg PO DAILY 05/28/18 Gabapentin [Neurontin] 600 mg PO BID 10/09/19 Sevelamer Carbonate [Renvela -] 800 mg PO TIDCM #90 tab 10/12/19 Anemia: Yes Asthma: Yes Cardiac Disorders: No COPD: No CHF: No Diabetes: Yes (IDDM) Psychiatric Problems: Yes (DEPRESSION/ANXIETY/BIPOLAR) Other medical history: CKD, Polycystic Kidney Disease - Surgical History Abdominal Surgery: Yes Cholecystectomy: No - Reproductive History Dysfunctional Uterine Bleeding: Yes - Psycho-Social/Smoking History Smoking History: Never smoked Have you smoked in the past 12 months: No Number of Cigarettes Smoked Daily: 0 Review of Systems - Review of Systems Able to Perform ROS?: Yes Comments:: 10 point review of systems completed. All systems negative except as noted above. *Physical Exam - Vital Signs Last Vital Signs Temp Pulse Resp BP Pulse Ox 99.9 F H 94 H 16 136/85 100 11/17/19 17:27 11/17/19 17:27 11/17/19 17:27 11/17/19 17:27 11/17/19 17:27 - Physical Exam Vital signs and nursing notes reviewed. Constitutional- Nontoxic, obese adult female in no acute distress but mild obvious discomfort. Found sitting up on hospital chair. Head- Normocephalic. No obvious external signs of trauma. Eyes- Sclerae white. Conjunctiva pink and moist. Neck- Supple, trachea is midline. Cardiovascular / Chest- Regular rate and regular rhythm. No murmur, rubs, clicks, or gallops. Peripheral pulses- radial pulses full. Respiratory- Breathing unlabored. Speaking in multi-word responses without pa using. Equal chest rise and fall. Clear to auscultation bilaterally. No stridor, no wheezing, no rhonchi. Gastrointestinal- Large pannus. Pt reports generalized discomfort across lower abdomen and pannus with palpation. No rebound or guarding. No pulsatile masses. Female Pelvic: External genitalia unremarkable. Speculum exam with normal appearing whitish vaginal discharge and small amount of blood. Unable to clearly discern anatomical landmarks. Possible mass vs cervix with multiple white l esions at 3 oclock position. Trace amount of active bleeding appears to be from behind the mass at 9 o'clock. Possible ulcerated vaginal mucosa. Unable to palpate OS on bimanual exam. RN [place] chaperoned exam. Neuro- Alert and oriented x4. Moving all four extremities spontaneously. No facial asymmetry. No slurred speech. Skin- Warm and dry. - No R or L CVA tenderness. Psych- Affect- appropriate. Mood- labile; crying intermittently. Speech was non-labored, non-pressured. ED Treatment Course - LABORATORY CBC & Chemistry Diagram: 11/17/19 19:08 11/17/19 19:08 Medical Decision Making - Medical Decision Making 39 y/o female presenting for vaginal bleeding, lower abdominal pain, and generalized weakness. Afebrile. Vitals unremarkable for hypotension or t achycardia. Physical exam as described above. Concern for cervical CA. Called and discussed case with Dr. 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 Suggested referring pt to Dr. Guillen at the [facility]. Leukocytosis. Unclear etiology. CXR unremarkable for signs of PNA. CTAB unremarkable for signs of abscess vs other intra-abdominal infectious process. Noted UA results. Suspect likely contaminated sample. Will not order abx at this time. Urine culture pending. Hepatosplenomegally noted. Will defer further workup to admitting medicine team. Symptomatic anemia. Concern for further drop with bleeding as well as poor follow up. Ordered 2 units PRBC. VICENTE vs acute renal failure superimposed on CKD. Labs suggestive for nonanion gap acidosis. Considering isotonic bicarb drip. Will discuss w/ nephrology. Suspect this is the likely source of the hyperkalemia as well. No concerning EKG changes. 17 Nov 2019 21:04 PM Telephone discussion with Dr. Dahl of nephrology service. Verbally appraised of the pts HPI, ED course, and current plan of management. Agrees with plan for isotonic bicarb drip. Will evaluate the pt on admission. 17 Nov 2019 23:08 PM Telephone discussion with resident Dr. Delaney. Verbally appraised of the pts HPI, ED course, and current plan of management. Will admit pt to med/surg for attending Dr. Linn. Case discussed with ED Attending Dr. Vishal Melchor M.D., PGY2 Emergency Medicine Resident Discharge - Discharge Information Problems reviewed: Yes Clinical Impression/Diagnosis: CKD (chronic kidney disease) stage 4, GFR 15-29 ml/min, Vaginal bleeding Acute renal failure Qualifiers: Acute renal failure type: unspecified Qualified Code(s): N17.9 - Acute kidney failure, unspecified Leukocytosis Qualifiers: Leukocytosis type: unspecified Qualified Code(s): D72.829 - Elevated white blood cell count, unspecified Condition: Stable - Admission Yes - Follow up/Referral - Patient Discharge Instructions - Post Discharge Activity
[2019-11-17 19:43] LABS: EPI CELLS 32 /uL (0-25.1); HCG,QUALITATIVE URINE Negative; HEMATOCRIT 21.3 % (32.4-45.2); HYALINE CASTS 1 /uL (0-3.1); MCH 27.5 pg (25.7-33.7); MCHC 32.9 g/dl (32.0-36.0); MEAN CELL VOLUME 83.6 fl (80-96); RBC 2.55 M/mm3 (3.60-5.2); RDW 15.6 % (11.6-15.6); URINE APPEARANCE CLOUDY; URINE BACTERIA 919 /uL (0-1359); URINE BILIRUBIN NEGATIVE (NEGATIVE); URINE COLOR YELLOW; URINE GLUCOSE (UA) 1+ (NEGATIVE); URINE KETONE NEGATIVE (NEGATIVE); URINE LEUK ESTERASE 2+ (NEGATIVE); URINE NITRITE NEGATIVE (NEGATIVE); URINE PROTEIN 3+ (NEGATIVE); URINE RBC 395 /uL (0-23.9); URINE UROBILINOGEN 0.2 mg/dL (0.2-1.0); URINE WBC 1048 /uL (0-25.8)
[2019-11-17 20:07] LABS: ALBUMIN 2.2 g/dl (3.4-5.0); BILIRUBIN,TOTAL 0.2 mg/dL (0.2-1); BLOOD UREA NITROGEN 72.6 mg/dL (7-18); CALCIUM 8.5 mg/dL (8.5-10.1); POTASSIUM 5.4 mmol/L (3.5-5.1); TOT PROT 7.3 g/dl (6.4-8.2)
[2019-11-17 20:13] LABS: ANISOCYTOSIS 1+; MACROCYTOSIS 0; PLATELET ESTIMATE NORMAL
[2019-11-17 20:14] LABS: MEAN PLT VOLUME 8.3 fl (7.5-11.1); PLATELET COUNT 294 K/MM3 (134-434); WHITE BLOOD COUNT 19.7 K/mm3 (4.0-10.0)
--- NOTE | 2019-11-17 20:14 | PDOC ---
Documentation entered by María Cordero SCRIBE, acting as scribe for Bertrand Rodgers MD. Bertrand Rodgers MD: This documentation has been prepared by the Consuelo faust Adrianna, SCRIBE, under my direction and personally reviewed by me in its entirety. I confirm that the documentation accurately reflects all work, treatment, procedures, and medical decision making performed by me. Attending Attestation - Resident Resident Name: Ankit Melchor - ED Attending Attestation I have performed the following: I have examined & evaluated the patient, The case was reviewed & discussed with the resident, I agree w/resident's findings & plan, Exceptions are as noted - HPI HPI: The patient is a 39 year old female, with a significant PMH of IDDM, anemia, asthma, depression, anxiety and bipolar, who presents to the ED for evaluation of vaginal bleeding and abdominal pain for several months. Patient notes she became symptomatic after she had a depo shot last year. She reports soaking through many pads. Patient became more weakn and fatigued today, so she was advised by her PCP to come to the ED for further evaluation. Allergies: NKA, NKDA Surgical History: None reported Social History: No toxic habits PCP: Dr. Read - Physicial Exam PE: 11/18/19 00:06 Agree with documented exam - Medical Decision Making 11/18/19 00:07 Visual and manual pelvic exam concerning for cervical mass, eval for anemia given persistent bleeding, VS inconsistent with shock f/u labs, cxr, ct ap hgb 7 VICENTE, NAG acidosis admit for management of acute pathology Discharge - Discharge Information Problems reviewed: Yes Clinical Impression/Diagnosis: CKD (chronic kidney disease) stage 4, GFR 15-29 ml/min, Vaginal bleeding Acute renal failure Qualifiers: Acute renal failure type: unspecified Qualified Code(s): N17.9 - Acute kidney failure, unspecified Leukocytosis Qualifiers: Leukocytosis type: unspecified Qualified Code(s): D72.829 - Elevated white blood cell count, unspecified Condition: Stable - Follow up/Referral - Patient Discharge Instructions - Post Discharge Activity
[2019-11-17] MEDS ORDERED: ACETAMINOPHEN 325 MG TABLET (FP) PO ONE (20:42)
[2019-11-17] MEDS ORDERED: ACETAMINOPHEN 325 MG TABLET (FP) ONE (20:52)
[2019-11-17] MEDS ORDERED: SODIUM CHLORIDE 0.45% 1,000 ML with SODIUM BICARBONATE 8.4% - 75 MEQ IV SCH ×2 (21:15)
--- NOTE | 2019-11-18 00:37 | HP ---
CHIEF COMPLAINT: Pain + Vaginal Bleeding PCP: Jonathan Valadez NEPHRO: Dr. Jessika Rosario HISTORY OF PRESENT ILLNESS: 39 y/o PMHx of IDDM with neuropathy, Polycystic Kidney Disease with CKD3, Anemia, Asthma, GERD, Nephrolithiasis, Anxiety/Depression presents with Suprapubic pain and Vaginal Bleeding. Patient was recently discharged on 10/11 after admission for COVID19, UTI, VICENTE and Menorhaggia. Shortly after discharge, patient felt sudden onset of diffuse pain that varied in presentation; most often, the pain was a 8/10 sharp and cramping pain over her suprapubic region with occasional radiation to her back. The pain is most prominent in the suprapubic area and right lower back. Approximately 2 weeks ago, patient began to have significant vaginal bleeding. Patient says that her bleeding required pad changes every 30 minutes however today she also noticed blood clots prompting her to visit [facility]. She has tried tylenol for pain with minimal relief. She is unable to identify and triggerring or relieving factors. Patient mentions being on Depo Injection previously (administerred by PCP). Since stopping the Depo Injection 1 year ago, she feels her menstrual period has not resumed her normal cycle. She has had abnormal bleeding since resuming her period about 6 months ago; her periods now last about 10 days with spotting in between and pain prior to menstruating. She had her last Pap smear about 3 years ago with no OBGYN follow up since then. Denies any new sexual partners or any hx of STDs. Patient mentions having had multiple medications recently but is unable to specify exactly which ones; She is a patron of [facility]. Denies any recent travel, sick contacts. Of note, patient mentions frequent falls due to neuropathy. Endorses Chills, Alternating Diarrhea and constipation, headache, Lightheadedness and dizziness. Denies Fevers, Chest Pain, SOB, nausea, vomiting, Dysuria. ER course was notable for: (1) Pelvic Exam (2) Sodium bicarb gtt, Tylenol 650mg (3) 2u PRBC Recent Travel: Denies PAST MEDICAL HISTORY: As per HPI PAST SURGICAL HISTORY: , Kidney Stone (?Lithotripsy), B/L Eye Sx Social History: Smoking: Smoked for 3 years from age [age], Unable to quantify Alcohol: Occasional Drugs: Denies Occupation: Disabled Ambulation: Without assistance Residence: House with 2 daughters Allergies No Known Allergies Allergy (Verified 11/17/19 17:26) HOME MEDICATIONS: Home Medications Medication Instructions Recorded Albuterol 0.083% Nebulizer Sarina 1 neb NEB Q6H PRN 10/06/17 [Ventolin 0.083% Nebulizer Soln -] Budesonide/Formeterol Fumarate 1 inh PO DAILY 10/06/17 [SYMBICORT 80/4.5mcg -] Ferrous Sulfate [Feosol] 325 mg PO DAILY 10/06/17 Insulin Glargine,Hum.rec.anlog 40 unit SQ BID 10/06/17 [Lantus] Insulin Lispro [Humalog] 0 unit SQ ASDIR 04/18/18 Esomeprazole Magnesium [Nexium 40 mg PO DAILY 05/28/18 24Hr] Gabapentin [Neurontin] 600 mg PO BID 10/09/19 Sevelamer Carbonate [Renvela -] 800 mg PO TIDCM #90 tab 10/12/19 REVIEW OF SYSTEMS As per HPI PHYSICAL EXAMINATION Vital Signs - 24 hr 11/17/19 11/17/19 11/17/19 17:27 20:58 23:08 Temperature 99.9 F H 98.7 F Pulse Rate 94 H Pulse Rate [ 92 H Left Brachial] Respiratory 16 Rate Blood Pressure 136/85 Blood Pressure 145/88 [Left Arm] O2 Sat by Pulse 100 100 100 Oximetry (%) GENERAL: A&Ox3, NAD HEAD: NCAT EYES: PERRL, EOMI ENT: Oropharynx clear without exudates. Moist mucous membranes. NECK: No JVD LUNGS: Diminished breath sounds at the bases, No wheezes, No crackles HEART: Regular rate and rhythm, normal S1 and S2 without murmur ABDOMEN: Obese, Soft, Tender to palpation in the suprapubic region, not distended, + bowel sounds, no guarding, no rebound EXTREMITIES: No peripheral edema. NEUROLOGICAL: Cranial nerves II-XII intact. Normal speech. 4/5 muscle strength to handgrip, elbow flexion and extension, hip flexion and extension, dorsiflxion and plantarflexion. Diminished sensation over the RUE and B/L LE. SKIN: Warm, dry. healing scab wound over the Left Knee. Pelvic Exam As per ED Laboratory Last Values WBC 19.7 K/mm3 (4.0-10.0) H 11/17/19 19:08 RBC 2.55 M/mm3 (3.60-5.2) L 11/17/19 19:08 Hgb 7.0 GM/dL (10.7-15.3) L 11/17/19 19:08 Hct 21.3 % (32.4-45.2) L 11/17/19 19:08 MCV 83.6 fl (80-96) 11/17/19 19:08 MCH 27.5 pg (25.7-33.7) 11/17/19 19:08 MCHC 32.9 g/dl (32.0-36.0) 11/17/19 19:08 RDW 15.6 % (11.6-15.6) 11/17/19 19:08 Plt Count 294 K/MM3 (134-434) 11/17/19 19:08 MPV 8.3 fl (7.5-11.1) 11/17/19 19:08 Absolute Neuts (auto) No Result Required. 11/17/19 19:08 Neutrophils % No Result Required. 11/17/19 19:08 Neutrophils % (Manual) 73.2 % (42.8-82.8) 11/17/19 19:08 Band Neutrophils % 0.0 % 11/17/19 19:08 Lymphocytes % No Result Required. 11/17/19 19:08 Lymphocytes % (Manual) 16.5 % (8-40) 11/17/19 19:08 Monocytes % (Manual) 7 % (3.8-10.2) 11/17/19 19:08 Eosinophils % (Manual) 3.1 % (0-4.5) 11/17/19 19:08 Basophils % (Manual) 0.0 % (0-2.0) 11/17/19 19:08 Myelocytes % (Man) 0 % (0-2) 11/17/19 19:08 Promyelocytes % (Man) 0 % (0-2) 11/17/19 19:08 Blast Cells % (Manual) 0 % (0-0) 11/17/19 19:08 Nucleated RBC % 0 % (0-0) 11/17/19 19:08 Metamyelocytes 0 % (0-2) 11/17/19 19:08 Hypochromia 0 11/17/19 19:08 Platelet Estimate Normal 11/17/19 19:08 Polychromasia 0 11/17/19 19:08 Poikilocytosis 0 11/17/19 19:08 Anisocytosis 1+ 11/17/19 19:08 Microcytosis 1+ 11/17/19 19:08 Macrocytosis 0 11/17/19 19:08 Sodium 135 mmol/L (136-145) L 11/17/19 19:08 Potassium 5.4 mmol/L (3.5-5.1) H 11/17/19 19:08 Chloride 110 mmol/L (98-107) H 11/17/19 19:08 Carbon Dioxide 14 mmol/L (21-32) L 11/17/19 19:08 Anion Gap 12 MMOL/L (8-16) 11/17/19 19:08 BUN 72.6 mg/dL (7-18) H 11/17/19 19:08 Creatinine 5.0 mg/dL (0.55-1.3) H 11/17/19 19:08 Est GFR (CKD-EPI)AfAm 11.83 11/17/19 19:08 Est GFR (CKD-EPI)NonAf 10.20 11/17/19 19:08 Random Glucose 178 mg/dL (74-106) H 11/17/19 19:08 Calcium 8.5 mg/dL (8.5-10.1) 11/17/19 19:08 Total Bilirubin 0.2 mg/dL (0.2-1) 11/17/19 19:08 AST 24 U/L (15-37) 11/17/19 19:08 ALT 15 U/L (13-61) 11/17/19 19:08 Alkaline Phosphatase 98 U/L (45-117) 11/17/19 19:08 Total Protein 7.3 g/dl (6.4-8.2) 11/17/19 19:08 Albumin 2.2 g/dl (3.4-5.0) L 11/17/19 19:08 Urine Color Yellow 11/17/19 19:08 Urine Appearance Cloudy 11/17/19 19:08 Urine pH 6.0 (5.0-8.0) 11/17/19 19:08 Ur Specific [place] 1.013 (1.010-1.035) 11/17/19 19:08 Urine Protein 3+ (NEGATIVE) H 11/17/19 19:08 Urine Glucose (UA) 1+ (NEGATIVE) H 11/17/19 19:08 Urine Ketones Negative (NEGATIVE) 11/17/19 19:08 Urine Blood 3+ (NEGATIVE) H 11/17/19 19:08 Urine Nitrite Negative (NEGATIVE) 11/17/19 19:08 Urine Bilirubin Negative (NEGATIVE) 11/17/19 19:08 Urine Urobilinogen 0.2 mg/dL (0.2-1.0) 11/17/19 19:08 Ur Leukocyte Esterase 2+ (NEGATIVE) H 11/17/19 19:08 Urine WBC (Auto) 1048 /uL (0-25.8) 11/17/19 19:08 Urine RBC (Auto) 395 /uL (0-23.9) 11/17/19 19:08 Urine Casts (Auto) 1 /uL (0-3.1) 11/17/19 19:08 U Epithel Cells (Auto) 32 /uL (0-25.1) 11/17/19 19:08 Urine Bacteria (Auto) 919 /uL (0-1359) 11/17/19 19:08 Urine HCG, Qual Negative 11/17/19 19:08 Blood Type O POSITIVE 11/17/19 19:08 Antibody Screen Negative 11/17/19 19:08 Crossmatch See Detail 11/17/19 19:08 ASSESSMENT/PLAN: 39 y/o PMHx of IDDM with neuropathy, Polycystic Kidney Disease with CKD3, Anemia, Asthma, GERD, Nephrolithiasis, Anxiety/Depression presents with Suprapubic pain and Vaginal Bleeding. #UTI -Afebrile, nontoxic appearing however with leukocytosis, Positive UA and Suprapubic tenderness to palpation -Prior cx positive for Proteus Mirabilis sensitive to Ceftriaxone -Start Ceftriaxone 1gm daily -Follow Urine Cx #VICENTE -In the setting of Polycystic Kidney Disease with CKD3; Current eGFR 10.3 calculated, baseline ~17 -Check VBG -DC Bicarb GTT; Start PO Bicarb -Nephrology (Dr. Dahl) Consulted, case discussed as per ED #Leukocytosis -Likely due to UTI -CXR without any acute pathology -CT A/P Pending official report -Check blood Cx, Lactic acid, stool cx, CDiff (given alternating Diarrhea/Constipation with leukocytosis and recent hospital stay) #Anemia -Likely Menhorhaggia -ED discussed case with OBGyn national service officer (Dr. Abarca) who suggested referring to Dr. Guillen at the [facility]. -2u pRBC ordered by ED staff -Check TVUS -Unable to check Iron studies as blood transfusion had already begun #Hyperkalemia -Sample present with hemolysis however in the setting of VICENTE -Repeat BMP, Will treat if >5.5 #IDDM with neuropathy -BGM ISS ACHS #Frequent falls -Fall precautions -Physical therapy evaluation -Check B12/Folate/TSH #Asthma -Resume home dose inhaled bronchodilators when meds reconcilled #GERD -Resume home dose PPI when meds reconciled #Anxiety/Depression -Mood currently stable -Resume home dose antidepressants when meds reconcilled #FEN -LR @ 75 -Replete lytes PRN -Diabetic diet #PPx -DVT: SCDs, Hold chemical ppx in the setting of anemia Dispo: Admit to medsurg Visit type - Emergency Visit Emergency Visit: Yes ED Registration Date: 11/17/19 Care time: The patient presented to the Emergency Department on the above date and was hospitalized for further evaluation of their emergent condition. - New Patient This patient is new to me today: Yes Date on this admission: 11/18/19 - Critical Care Critical Care patient: No ATTENDING PHYSICIAN STATEMENT I saw and evaluated the patient. I reviewed the resident's note and discussed the case with the resident. I agree with the resident's findings and plan as documented. SUBJECTIVE: OBJECTIVE: ASSESSMENT AND PLAN:
--- NOTE | 2019-11-18 02:11 | PN ---
Teaching Attending Note Name of Resident: Rylie Delaney ATTENDING PHYSICIAN STATEMENT I saw and evaluated the patient. I reviewed the resident's note and discussed the case with the resident. I agree with the resident's findings and plan as documented. 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 OBJECTIVE: VS: Afeb HR 92 BP 145/88 100% on RA Gen: obese female in NAD Cardiac: S1 S2 No M/R/G Lungs: CTA Ext: no edema or rash Neuro: A&O x3 moving all extremities non focal neuro exam Psych: mood intermittently crying Vaginal exam: ED exam appreciated, defer repeat examination at this time for pt ASSESSMENT AND PLAN: Labs: Leukocytosis to 19.7 H/H anemia normocytis to 12/12 BMP: K hemolyzed 5.4 BUN/Creat 72/2.0 elevated (3.2 in 09/2019 ) Bicarb 14 U/A 3+Protein 3+Blood, 2+Leukocyte esterase In ED given NaCl with 75mEq @100 mls/hr & 650 mg Tylenol Imaging: CT A/P Interval clearing of infiltrated in lower lung, b/l tiny renal calcific densities, no SBP, no incarceration of bowel loops, no h ydroureteronephrosis, renal or ureteral stone b/l UTI Leukocytosis to 19 also in setting of acute blood loss anemia Ceftriaxone 1 g q24 hr UCx BCx x 2 Previous Micro Proteus meehan sensitive VICENTE on advanced CKD in setting of PCKD Metabolic Acidosis in setting of Advanced CKD VBG Straight cath for residual pt refusing although having regular urination will monitor Urine electrolytes Urine prot:creat ratio Renal consult in am Received Bicarb in ED repeat BMP Start NaBicarb PO LR @ 75cc/hr and reassess Monitor creatinine and kidney function decline Acute Blood Loss Anemia due to Menometrorrhagia Normocytic Anemia in setting of Advanced CKD Transfuse to Keep HgB >7 Iron profile, Ferritin TIBC TVUS Commuter Pilot consult Pt has poor followup Receiving 2 units PRBC Monitor H/H Q 6 -8 hourly x 24 hr while actively bleeding Post Transfusion CBC IDDM ISS HbA1C Reconcile her insulin dose with pharmacy and resume for her am dose (seems like lantus BID) Hx of COVID-19 Positive No S/Sx monitor Isolation, contact precautions Supp care: Diet renal GI px not indicated DVT Px: SCD due to anemia
[2019-11-18] MEDS ORDERED: morphine CARPU-JECT 2 MG/1 ML DISP.SYRIN IVPUSH ONE (03:15)
[2019-11-18] MEDS ORDERED: MORPHINE SULFATE 2 MG/ML VIAL ONE (05:15)
[2019-11-18] MEDS ORDERED: SODIUM POLYSTYRENE SULFONATE 15 GM/60 ML BOTTLE PO ONE (07:11)
[2019-11-18] MEDS: INSULIN SLIDING SCALE (NOVOLOG) 1 VIAL SQ SCH ×4 (07:48→21:20)
[2019-11-18] MEDS ORDERED: SODIUM BICARBONATE 650 MG TABLET PO SCH (10:00)
[2019-11-18] MEDS: LACTATED RINGERS SOLUTION 1,000 ML/1,000 ML INFUS.BAG IV SCH (10:05)
[2019-11-18] MEDS: CEFTRIAXONE 1 GM in DEXTROSE 5%-WATER - 50 ML IVPB SCH (10:05)
[2019-11-18] MEDS ORDERED: CEFTRIAXONE 1 GM/50 ML BAG ONE (10:08)
[2019-11-18] MEDS ORDERED: ACETAMINOPHEN 325 MG TABLET (FP) ONE (10:37)
[2019-11-18] MEDS ORDERED: ACETAMINOPHEN 325 MG TABLET (FP) PO ONE (10:40)
--- NOTE | 2019-11-18 10:47 | PN ---
Physical Exam: SUBJECTIVE: Patient seen and examined at bedside. This patient is an inconsistent historian. Complaints and timelines change during the interview and are inconsistent with history given to other providers. During my interview, pt states she came in because she was bleeding and felt weak and dizzy. She states the bleeding started when her depot medication (administered by her PCP) was stopped last summer. She states she has been anemic for 9 years since the of her last child but does not know why. She has been on her depot medication for the last 3 years. 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 She was lost to follow up from her corrugated fastener driver, Dr. Jessika Leonard, for several years until several days ago. She was not able to pr ovide details regarding her visit there except that Dr. Leonard expressed concern over her poor follow up. Presently, she is receiving a blood transfusion and feels ok. OBJECTIVE: Vital Signs Period Temp Pulse Resp BP Sys/Farah Pulse Ox Last 24 Hr 98 F-99.9 F 78-94 16-20 130-145/60-88 99-100 Gen: AAOx3, NAD HEENT: NCAT, Eomi Neck: supple Cardio: rrr, normal s1s2, no mrg noted Pulm: cta b/l Abd: obese, soft, nontender Ext: no edema Laboratory Results - last 24 hr 11/17/19 11/17/19 11/17/19 19:08 19:08 19:08 WBC 19.7 H RBC 2.55 L Hgb 7.0 L Hct 21.3 L MCV 83.6 MCH 27.5 MCHC 32.9 RDW 15.6 Plt Count 294 MPV 8.3 Absolute Neuts (auto) No Result Required. Neutrophils % No Result Required. Neutrophils % (Manual) 73.2 Band Neutrophils % 0.0 Lymphocytes % No Result Required. Lymphocytes % (Manual) 16.5 Monocytes % (Manual) 7 Eosinophils % (Manual) 3.1 Basophils % (Manual) 0.0 Myelocytes % (Man) 0 Promyelocytes % (Man) 0 Blast Cells % (Manual) 0 Nucleated RBC % 0 Metamyelocytes 0 Hypochromia 0 Platelet Estimate Normal Polychromasia 0 Poikilocytosis 0 Anisocytosis 1+ Microcytosis 1+ Macrocytosis 0 Sodium 135 L Potassium 5.4 H Chloride 110 H Carbon Dioxide 14 L Anion Gap 12 BUN 72.6 H Creatinine 5.0 H Est GFR (CKD-EPI)AfAm 11.83 Est GFR (CKD-EPI)NonAf 10.20 POC Glucometer Random Glucose 178 H Calcium 8.5 Total Bilirubin 0.2 AST 24 ALT 15 Alkaline Phosphatase 98 Total Protein 7.3 Albumin 2.2 L Urine Color Yellow Urine Appearance Cloudy Urine pH 6.0 Ur Specific [place] 1.013 Urine Protein 3+ H Urine Glucose (UA) 1+ H Urine Ketones Negative Urine Blood 3+ H Urine Nitrite Negative Urine Bilirubin Negative Urine Urobilinogen 0.2 Ur Leukocyte Esterase 2+ H Urine WBC (Auto) 1048 Urine RBC (Auto) 395 Urine Casts (Auto) 1 U Epithel Cells (Auto) 32 Urine Bacteria (Auto) 919 Urine HCG, Qual Negative Blood Type Antibody Screen Crossmatch 11/17/19 11/18/19 19:08 07:33 WBC RBC Hgb Hct MCV MCH MCHC RDW Plt Count MPV Absolute Neuts (auto) Neutrophils % Neutrophils % (Manual) Band Neutrophils % Lymphocytes % Lymphocytes % (Manual) Monocytes % (Manual) Eosinophils % (Manual) Basophils % (Manual) Myelocytes % (Man) Promyelocytes % (Man) Blast Cells % (Manual) Nucleated RBC % Metamyelocytes Hypochromia Platelet Estimate Polychromasia Poikilocytosis Anisocytosis Microcytosis Macrocytosis Sodium Potassium Chloride Carbon Dioxide Anion Gap BUN Creatinine Est GFR (CKD-EPI)AfAm Est GFR (CKD-EPI)NonAf POC Glucometer 138 Random Glucose Calcium Total Bilirubin AST ALT Alkaline Phosphatase Total Protein Albumin Urine Color Urine Appearance Urine pH Ur Specific [place] Urine Protein Urine Glucose (UA) Urine Ketones Urine Blood Urine Nitrite Urine Bilirubin Urine Urobilinogen Ur Leukocyte Esterase Urine WBC (Auto) Urine RBC (Auto) Urine Casts (Auto) U Epithel Cells (Auto) Urine Bacteria (Auto) Urine HCG, Qual Blood Type O POSITIVE Antibody Screen Negative Crossmatch See Detail Active Medications Generic Name Dose Route Start Last Admin Trade Name Freq PRN Reason Stop Dose Admin Ceftriaxone Sodium 1 gm/ 50 mls @ 100 mls/hr 11/18/19 10:00 Dextrose IVPB DAILY UMBERTO Protocol Lactated Ringer's 1,000 ml in 1,000 mls @ 75 mls/hr 11/18/19 06:00 Lactated Ringers Solution IV ASDIR [facility] Insulin Aspart 1 vial 11/18/19 07:00 11/18/19 07:48 Novolog Vial Sliding Scale - SQ Not Given ACHS [facility] Protocol Sodium Bicarbonate 650 mg 11/18/19 10:00 Sodium Bicarbonate - PO DAILY [facility] ASSESSMENT/PLAN: 39 y/o PMHx of IDDM with neuropathy, Polycystic Kidney Disease with CKD3, Anemia, Asthma, GERD, Nephrolithiasis, Anxiety/Depression presented with S uprapubic pain and Vaginal Bleeding. She is admitted for vaginal bleeding requiring blood transfusion and UTI in the setting of PKD. #UTI -afebrile. Leukocytosis -Prior cx positive for Proteus Mirabilis sensitive to Ceftriaxone -c/w Ceftriaxone -Follow Urine Cx #VICENTE -In the setting of Polycystic Kidney Disease with CKD3; Current eGFR 10.3 calculated, baseline ~17 -c/w Bicarb -Nephrology on board #Anemia 2/2 Menorrhagia & ? chronic disease -Dr. Slaughter consulted. Has been unreachable for me, so far. -receiving transfusion -TVUS significant for endometrial thickening +/- debris without discrete mass -f/u repeat CBC #Leukocytosis -Likely due to UTI -CXR without any acute pathology -CT A/P Pending official report -f/u Cx, Lactic acid, stool cx, CDiff (given alternating Diarrhea/Constipation with leukocytosis and recent hospital stay) #Hyperkalemia -1st lab hemolyzed -f/u bmp #IDDM with neuropathy -BGM ISS ACHS #Asthma -symbicort, ventolin #Frequent falls -Fall precautions -Physical therapy evaluation -Check B12/Folate/TSH #PPx -DVT: SCDs, Hold chemical ppx in the setting of anemia Dispo: Admit to [facility] confirmed with pharmacy today as well as with prior discharge instructions Visit type - Emergency Visit Emergency Visit: Yes ED Registration Date: 11/17/19 Care time: The patient presented to the Emergency Department on the above date and was hospitalized for further evaluation of their emergent condition. - New Patient This patient is new to me today: Yes Date on this admission: 11/18/19 - Critical Care Critical Care patient: No ATTENDING PHYSICIAN STATEMENT I saw and evaluated the patient. I reviewed the resident's note and discussed the case with the resident. I agree with the resident's findings and plan as documented. SUBJECTIVE: OBJECTIVE: ASSESSMENT AND PLAN:
--- NOTE | 2019-11-18 11:13 | PN ---
Progress Note (short form) - Note Progress Note: Tetryl Blender Operator consult requested for Dr Slaughter on 11/18/19 at 1.11 AM, Please note that Dr Slaughter was not chief controller that time & she is not chief controller today also . Please refer to call schedule & notify physician chief controller? Thank You
[2019-11-18] MEDS ORDERED: EPOETIN ALFA-EPBX 40,000 UNIT/ML VIAL SQ ONE ×2 (11:30→13:10)
--- NOTE | 2019-11-18 11:53 | PN ---
Teaching Attending Note Name of Resident: Zion Jones ATTENDING PHYSICIAN STATEMENT I saw and evaluated the patient. I reviewed the resident's note and discussed the case with the resident. I agree with the resident's findings and plan as documented. SUBJECTIVE:She is comfortable not actively bleeding OBJECTIVE: Vital Signs Period Temp Pulse Resp BP Sys/Farah Pulse Ox Last 24 Hr 98 F-99.9 F 78-94 16-20 125-145/60-88 99-100 Patient is comfortable HEENT normal Neck supple no JVD Lungs clear no wheezing Abdomen nontender no organomegaly bowel sounds normal Extremities no edema no cyanosis normal pulses Neurologically he is alert awake oriented, nonfocal Skin no rash noted Allergy Abdominal ultrasound shows heterogeneous uterus without discrete mass thickened endometrium with possible fluid debris is within the endometrial cavity. CT scan of the abdomen and pelvis result noted H says that finding again compat ible with polycystic kidney disease with multiple bilateral tiny renal cysts resolving pneumonia no sign of bowel obstruction and abdominal wall hernia. ASSESSMENT AND PLAN: 39 y/o PMHx of IDDM with neuropathy, Polycystic Kidney Disease with CKD3, Anemia, Asthma, GERD, Nephrolithiasis, Anxiety/Depression presented with Suprapubic pain and Vaginal Bleeding. She is admitted for vaginal bleeding r equiring blood transfusion and UTI in the setting of PKD. #UTI Continue antibiotics #VICENTE -In the setting of Polycystic Kidney Disease with CKD3; Current eGFR 10.3 calculated, baseline ~17 IV fluids -Nephrology on board #Anemia 2/2 Menorrhagia & ? chronic disease -Dr. Slaughter consulted. Has been unreachable for me, so far. -receiving transfusion -TVUS significant for endometrial thickening +/- debris without discrete mass -f/u repeat CBC Consult with [facility] We will give her Procrit 40,000 subcu also IV iron. #IDDM with neuropathy -BGM ISS ACHS #Asthma -symbicort, ventolin #PPx -DVT: SCDs, Hold chemical ppx in the setting of anemia, Patient is also ambulatoryAdvised her to activity
[2019-11-18 11:59] LABS: BASO % 0.5 % (0-2.0); EOS % 1.1 % (0-4.5); HEMATOCRIT 27.1 % (32.4-45.2); HEMOGLOBIN 8.6 GM/dL (10.7-15.3); LYMPH % 11.6 % (8-40); MCH 27.2 pg (25.7-33.7); MCHC 31.8 g/dl (32.0-36.0); MEAN CELL VOLUME 85.4 fl (80-96); MEAN PLT VOLUME 8.2 fl (7.5-11.1); MONO % 7.3 % (3.8-10.2); NEUT % 79.5 % (42.8-82.8); PLATELET COUNT 290 K/MM3 (134-434); RBC 3.18 M/mm3 (3.60-5.2); RDW 14.4 % (11.6-15.6); WHITE BLOOD COUNT 14.9 K/mm3 (4.0-10.0)
[2019-11-18] MEDS ORDERED: IRON SUCROSE INJECTION 100 MG in SODIUM CHLORIDE 95 ML IVPB ONE (12:00)
[2019-11-18 12:31] LABS: ALBUMIN 2.3 g/dl (3.4-5.0); BILIRUBIN,TOTAL 0.4 mg/dL (0.2-1); BLOOD UREA NITROGEN 72.7 mg/dL (7-18); CALCIUM 8.5 mg/dL (8.5-10.1); CREATININE 4.6 mg/dL (0.55-1.3); PHOSPHOROUS 7.5 mg/dL (2.5-4.9); TOT PROT 7.3 g/dl (6.4-8.2)
--- NOTE | 2019-11-18 13:03 | CON.NEP ---
Consult Consult Specialty:: Nephrology Referred by:: ED Reason for Consultation:: VICENTE on CKD - History of Present Illness Chief Complaint: Vaginal bleeding History of Present Illness: This is a 39 year old woman with history of polycystic kidney disease, CKD stage 3/4, IDDM who presented from home with complaints of vaginal bleeding and found to have anemia and VICENTE with CR of 5. Pt seen and examined at the bedside. She reports generlaized pain. Has some bilateral flank pain. No N/V/D, fever or chills. No sob or chest pain. Was COVID + on last admission. Denies any NSAID use or contrast exposure. - History Source History Provided By: Patient Limitations to Obtaining History: No Limitations - Past Medical History Renal/: Yes: Renal Inusuff, Other (PCKD) ...LMP: 11/03/19 Endocrine: Yes: Diabetes Mellitus - Alcohol/Substance Use Hx Alcohol Use: No - Smoking History Smoking history: Never smoked Have you smoked in the past 12 months: No Aproximately how many cigarettes per day: 0 Home Medications - Allergies Allergies/Adverse Reactions: Allergies Allergy/AdvReac Type Severity Reaction Status Date / Time No Known Allergies Allergy Verified 11/17/19 17:26 - Home Medications Home Medications: Ambulatory Orders Albuterol 0.083% Nebulizer Sarina [Ventolin 0.083% Nebulizer Soln -] 1 neb NEB Q6H PRN 10/06/17 Budesonide/Formeterol Fumarate [SYMBICORT 80/4.5mcg -] 1 inh PO DAILY 10/06/17 Insulin Glargine,Hum.rec.anlog [Lantus] 50 unit SQ BID 10/06/17 Insulin Lispro [Humalog] 30 unit SQ TID 04/18/18 Esomeprazole Magnesium [Nexium 24Hr] 40 mg PO DAILY 05/28/18 Gabapentin [Neurontin] 600 mg PO TID 10/09/19 Sevelamer Carbonate [Renvela -] 800 mg PO TIDCM #90 tab 10/12/19 Dulaglutide [Trulicity] 1.5 mg SQ Q7D 11/18/19 Losartan Potassium 50 mg PO DAILY 11/18/19 Paroxetine HCl [Paxil -] 10 mg PO DAILY 11/18/19 Sodium Bicarbonate - 650 mg PO BID 11/18/19 Family Medical History Family History: Unremarkable Review of Systems - Review of Systems Constitutional: reports: Other (pain) Eyes: reports: No Symptoms HENT: reports: No Symptoms Neck: reports: No Symptoms Cardiovascular: reports: No Symptoms Respiratory: reports: No Symptoms Gastrointestinal: reports: Abdominal Pain Genitourinary: reports: Flank Pain. denies: Burning Musculoskeletal: reports: Back Pain Neurological: reports: No Symptoms Endocrine: reports: No Symptoms Nephrology Consult - Height Height: 5 ft 4 in - Weight Weight: 95.254 kg - BMI Body Mass Index (BMI): 36.0 - Lab Results CBC,BMP: CBC, BMP 11/18/19 11:10 11/18/19 11:10 Anion Gap: Anion Gap Anion Gap 14 MMOL/L (8-16) 11/18/19 11:10 - Imaging Cat Scan: Report Reviewed - Physical Examination Vital Signs: Vital Signs Temperature 98.5 F 11/18/19 10:05 Pulse Rate 90 11/18/19 10:05 Respiratory Rate 20 11/18/19 10:05 Blood Pressure 125/74 11/18/19 10:05 O2 Sat by Pulse Oximetry (%) 100 11/18/19 10:05 Constitutional: Yes: No Distress, Calm Eyes: Yes: Conjunctiva Clear HENT: Yes: Atraumatic Neck: Yes: Supple Cardiovascular: Yes: Regular Rate and Rhythm Respiratory: Yes: Diminished. No: Rales, Rhonchi, SOB Gastrointestinal: Yes: Soft, Tenderness Renal/: Yes: CVA Tenderness - Left, CVA Tenderness - Right. No: Bladder Distention Edema: No Neurological: Yes: Alert, Oriented Assessment/Plan 9 year old woman with history of polycystic kidney disease, CKD stage 3/4, IDDM who presented from home with complaints of vaginal bleeding and found to have an emia and VICENTE with CR of 5. 1. Acute on chronic renal insufficiency 2. Chronic anema 3. Vaginal bleeding/Menses 4. Metabolic acidosis 5. DM 6. Suspected cystitis/pylonephritis Renal function slowly improving with IVF. Continue isotonic saline for now. no evidence of obstruction on CT imaging of the abdomen No acute indication for FURNACE CHARGING MACHINE OPERATOR Continue sodium bicarb 1300mg BID Continue renvela with meals Hgb improved s/p prbc check iron saturation COMMERCIAL ESCROW OFFICER consult ordered, no overt pathology seen on CT Continue empiric antibiotics pain control PRN w/o NSAIDs Thank you Brian Dahl DO
[2019-11-18] MEDS: SEVELAMER CARBONATE 800 MG TAB (FP) PO SCH ×2 (14:38→17:57)
[2019-11-18] MEDS: BUDESONIDE/FORMETEROL FUMARATE 80/4.5 mcg INHALER IH SCH ×2 (14:46→23:30)
[2019-11-18] MEDS: GABAPENTIN 300 MG CAPSULE PO SCH ×2 (14:46→21:19)
--- NOTE | 2019-11-18 14:54 | EKG ---
Test Reason : Blood Pressure : / mmHG Vent. Rate : 092 BPM Atrial Rate : 092 BPM P-R Int : 156 ms QRS Dur : 084 ms QT Int : 370 ms P-R-T Axes : 059 -17 084 degrees QTc Int : 457 ms NORMAL SINUS RHYTHM POSSIBLE LEFT ATRIAL ENLARGEMENT NONSPECIFIC ST AND T WAVE ABNORMALITY WHEN COMPARED WITH ECG OF 08-OCT-2019 15:17, NO SIGNIFICANT CHANGE WAS FOUND Confirmed by DANELLE GUTIERREZ MD ([id number]) on 11/18/2019 2:53:34 PM Referred By: Confirmed By:DANELLE GUTIERREZ MD
[2019-11-18] MEDS: MORPHINE SULFATE 2 MG/ML VIAL IVPUSH PRN (18:56)
[2019-11-18] MEDS ORDERED: INSULIN (NOVOLOG) ASPART 100 UNITS/ML 10ML VIAL ONE (21:10)
[2019-11-18] MEDS: SODIUM BICARBONATE 650 MG TABLET PO SCH (21:19)
[2019-11-19] MEDS ORDERED: PT OWN MED DRAWER 7, Y5N ONE (05:36)
[2019-11-19] MEDS: GABAPENTIN 300 MG CAPSULE PO SCH ×3 (06:01→21:00)
[2019-11-19] MEDS: INSULIN SLIDING SCALE (NOVOLOG) 1 VIAL SQ SCH ×4 (06:09→21:10)
[2019-11-19] MEDS: LACTATED RINGERS SOLUTION 1,000 ML/1,000 ML INFUS.BAG IV SCH ×2 (06:10→11:41)
[2019-11-19 08:28] LABS: BASO % 0.6 % (0-2.0); EOS % 1.5 % (0-4.5); HEMATOCRIT 22.5 % (32.4-45.2); HEMOGLOBIN 7.3 GM/dL (10.7-15.3); LYMPH % 19.3 % (8-40); MCH 27.4 pg (25.7-33.7); MCHC 32.6 g/dl (32.0-36.0); MEAN PLT VOLUME 8.1 fl (7.5-11.1); MONO % 9.6 % (3.8-10.2); PLATELET COUNT 257 K/MM3 (134-434); RBC 2.68 M/mm3 (3.60-5.2); WHITE BLOOD COUNT 12.1 K/mm3 (4.0-10.0)
[2019-11-19 08:32] LABS: CALCIUM 8.1 mg/dL (8.5-10.1); CREATININE 4.7 mg/dL (0.55-1.3); MAGNESIUM 1.9 mg/dL (1.8-2.4); PHOSPHOROUS 8.3 mg/dL (2.5-4.9); POTASSIUM 4.8 mmol/L (3.5-5.1)
[2019-11-19] MEDS ORDERED: cefTRIAXone SODIUM 1 GM VIAL ONE (09:21)
[2019-11-19] MEDS ORDERED: DEXTROSE 5%-WATER - 50 ML IVPB ONE (09:22)
[2019-11-19] MEDS: SEVELAMER CARBONATE 800 MG TAB (FP) PO SCH ×3 (09:46→17:17)
[2019-11-19] MEDS: CEFTRIAXONE 1 GM in DEXTROSE 5%-WATER - 50 ML IVPB SCH (09:47)
[2019-11-19] MEDS: BUDESONIDE/FORMETEROL FUMARATE 80/4.5 mcg INHALER IH SCH ×2 (09:47→21:00)
[2019-11-19] MEDS: PARoxetine HCL 10 MG TABLET PO SCH (09:47)
[2019-11-19] MEDS: SODIUM BICARBONATE 650 MG TABLET PO SCH ×2 (09:47→21:00)
[2019-11-19] MEDS: PANTOPRAZOLE 40 MG TABLET PO SCH (09:47)
[2019-11-19] MEDS ORDERED: BUDESONIDE/FORMETEROL FUMARATE 80/4.5 mcg INHALER IH SCH (10:00)
[2019-11-19] MEDS ORDERED: LOSARTAN POTASSIUM 50 MG TABLET (FP) PO SCH (10:00)
--- NOTE | 2019-11-19 10:22 | PN ---
Progress Note (short form) - Note Progress Note: She is improving no abdominal pain today out of bed she says she still having vaginal spotting on IV fluids. Her creatinine is gone up slightly today. Seen by nephrology yesterday. Vital Signs Period Temp Pulse Resp BP Sys/Farah Pulse Ox Last 24 Hr 97.8 F-99 F 62-104 16-20 107-163/65-86 100-100 Patient is comfortable HEENT normal Neck supple no JVD Lungs clear no wheezing Abdomen nontender no organomegaly bowel sounds normal Extremities no edema no cyanosis normal pulses Neurologically he is alert awake oriented, nonfocal Skin no rash noted CBC, BMP 11/19/19 07:25 11/19/19 07:25 ASSESSMENT AND PLAN: 39 y/o PMHx of IDDM with neuropathy, Polycystic Kidney Disease with CKD3, Anemia, Asthma, GERD, Nephrolithiasis, Anxiety/Depression presented with Suprapubic pain and Vaginal Bleeding. She is admitted for vaginal bleeding requiring blood transfusion and UTI in the setting of PKD. #UTI Continue antibiotics #VICENTE -In the setting of Polycystic Kidney Disease with CKD3; Current eGFR 10.3 calculated, baseline ~17 IV fluids Follow-up nephrology #Anemia 2/2 Menorrhagia & ? chronic disease Consult with POWER SHEAR OPERATOR Will repeat hemoglobin in the morning if it is below 7 she may need blood transfusion. Will start on oral iron therapy. #IDDM with neuropathy -BGM ISS ACHS #Asthma -symbicort, ventolin #PPx -DVT: SCDs, Hold chemical ppx in the setting of anemia, Patient is also ambulating Visit type - Emergency Visit Emergency Visit: Yes ED Registration Date: 11/17/19 Care time: The patient presented to the Emergency Department on the above date and was hospitalized for further evaluation of their emergent condition. - New Patient This patient is new to me today: No - Critical Care Critical Care patient: No - Discharge Referral Referred to [facility] Med P.C.: No
--- NOTE | 2019-11-19 15:50 | CONSULT ---
Consult - text type - Consultation Consultation Note: 39 y/o female presenting to [facility] ER complaining of chronic lower abdominal pain and vaginal bleeding. Pt reports these symptoms started last year after her last Depo shot. Became more fatigued and generally weak today. Was evaluated by her PCP and told to go to the ER for evaluation of possible anemia. Of note, the pt was hospitalized in September with COVID-19 infection. Allergies/Adverse Reactions: Allergies Allergy/AdvReac Type Severity Reaction Status Date / Time No Known Allergies Allergy Verified 11/17/19 17:26 Home Medications: Ambulatory Orders Albuterol 0.083% Nebulizer Sarina [Ventolin 0.083% Nebulizer Soln -] 1 neb NEB Q6H PRN 10/06/17 Budesonide/Formeterol Fumarate [SYMBICORT 80/4.5mcg -] 1 inh PO DAILY 10/06/17 Ferrous Sulfate [Feosol] 325 mg PO DAILY 10/06/17 Insulin Glargine,Hum.rec.anlog [Lantus] 40 unit SQ BID 10/06/17 Insulin Lispro [Humalog] 0 unit SQ ASDIR 04/18/18 Esomeprazole Magnesium [Nexium 24Hr] 40 mg PO DAILY 05/28/18 Gabapentin [Neurontin] 600 mg PO BID 10/09/19 Sevelamer Carbonate [Renvela -] 800 mg PO TIDCM #90 tab 10/12/19 PMH Anemia: Yes Asthma: Yes Diabetes: Yes (IDDM) Psychiatric Problems: Yes (DEPRESSION/ANXIETY/BIPOLAR) Other medical history: CKD, Polycystic Kidney Disease - Surgical History Abdominal Surgery: Yes - Vital Signs PAtient is obese, in NAD AFVSS Cor: RSR, No murmurs, No gallops Lungs: Clear to P&A Abd: Soft, Normal bowel sounds, No organomegaly Ext:No significant edema Labs/MEds reviewed A/P 39 y/o female presenting for vaginal bleeding, lower abdominal pain, and generalized weakness. Also with DM, VICENTE on CKD. Leukocytosis -- ? UTI--strep. On rocephin CT adomen/pelvis w/o contrast---residual pulmonary infiltrates. Hepatosplenomegaly. B/L polycystic idney disease Anemia -- of chronic disease -- CKD+ blood loss ( menstrual/ ? GI) T/V U/S --thickened endometrium iron sat-- 28%, ferritin --206 B12/folate/TSH--normal Continue supportive care
--- NOTE | 2019-11-19 18:32 | PN ---
Progress Note, Physician History of Present Illness: Pt seen and examined at bedside. She is awake and alert. She denies shortness of breath. - Current Medication List Current Medications: Active Medications Albuterol Sulfate (Ventolin 0.083% Nebulizer Soln -) 1 amp NEB Q6H PRN PRN Reason: SHORTNESS OF BREATH Budesonide/Formoterol Fumarate (Symbicort 80/4.5mcg -) 2 puff IH BID [facility] Last Admin: 11/19/19 09:47 Dose: 2 puff Documented by: Gabapentin (Neurontin -) 600 mg PO TID [facility] Last Admin: 11/19/19 14:21 Dose: 600 mg Documented by: Ceftriaxone Sodium 1 gm/ (Dextrose) 50 mls @ 100 mls/hr IVPB DAILY [facility]; Protocol Last Admin: 11/19/19 09:47 Dose: 100 mls/hr Documented by: Lactated Ringer's (Lactated Ringers Solution) 1,000 ml in 1,000 mls @ 75 mls/hr IV ASDIR [facility] Last Admin: 11/19/19 11:41 Dose: 75 mls/hr Documented by: Insulin Aspart (Novolog Vial Sliding Scale -) 1 vial SQ ACHS [facility]; Protocol Last Admin: 11/19/19 16:51 Dose: Not Given Documented by: Morphine Sulfate (Morphine Sulfate) 2 mg IVPUSH Q6H PRN PRN Reason: PAIN LEVEL 6-10 Last Admin: 11/18/19 18:56 Dose: 2 mg Documented by: Pantoprazole Sodium (Protonix -) 40 mg PO DAILY [facility] Last Admin: 11/19/19 09:47 Dose: 40 mg Documented by: Paroxetine HCl (Paxil -) 10 mg PO DAILY [facility] Last Admin: 11/19/19 09:47 Dose: 10 mg Documented by: Sevelamer Carbonate (Renvela -) 800 mg PO TIDCM [facility] Last Admin: 11/19/19 17:17 Dose: 800 mg Documented by: Sodium Bicarbonate (Sodium Bicarbonate -) 650 mg PO BID [facility] Last Admin: 11/19/19 09:47 Dose: 650 mg Documented by: - Objective Vital Signs: Vital Signs Temperature 99 F 11/19/19 17:00 Pulse Rate 95 H 11/19/19 17:00 Respiratory Rate 18 11/19/19 17:00 Blood Pressure 148/69 11/19/19 17:00 O2 Sat by Pulse Oximetry (%) 100 11/19/19 09:00 Constitutional: Yes: Calm Eyes: Yes: Conjunctiva Clear HENT: Yes: Atraumatic Cardiovascular: Yes: S1, S2 Respiratory: Yes: CTA Bilaterally Gastrointestinal: Yes: Normal Bowel Sounds, Soft, Abdomen, Obese Genitourinary: Yes: WNL Edema: No Neurological: Yes: Oriented Psychiatric: Yes: Oriented Labs: CBC, BMP 11/19/19 07:25 11/19/19 07:25 Assessment/Plan Current Medications Generic Name Dose Route Start Last Admin Trade Name Freq PRN Reason Stop Dose Admin Albuterol Sulfate 1 amp 11/18/19 10:54 Ventolin 0.083% Nebulizer Soln - NEB Q6H PRN SHORTNESS OF BREATH Budesonide/Formoterol Fumarate 2 puff 11/18/19 14:00 11/19/19 09:47 Symbicort 80/4.5mcg - IH 2 puff BID UMBERTO Administration Gabapentin 600 mg 11/18/19 14:00 11/19/19 14:21 Neurontin - PO 600 mg TID UMBERTO Administration Ceftriaxone Sodium 1 gm/ 50 mls @ 100 mls/hr 11/18/19 10:00 11/19/19 09:47 Dextrose IVPB 100 mls/hr DAILY UMBERTO Administration Protocol Lactated Ringer's 1,000 ml in 1,000 mls @ 75 mls/hr 11/18/19 06:00 11/19/19 11:41 Lactated Ringers Solution IV 75 mls/hr ASDIR UMBERTO Administration Insulin Aspart 1 vial 11/18/19 07:00 11/19/19 16:51 Novolog Vial Sliding Scale - SQ Not Given ACHS UMBERTO Protocol Morphine Sulfate 2 mg 11/18/19 14:47 11/18/19 18:56 Morphine Sulfate IVPUSH 2 mg Q6H PRN Administration PAIN LEVEL 6-10 Pantoprazole Sodium 40 mg 11/19/19 10:00 11/19/19 09:47 Protonix - PO 40 mg DAILY UMBERTO Administration Paroxetine HCl 10 mg 11/19/19 10:00 11/19/19 09:47 Paxil - PO 10 mg DAILY [facility]MBERTO Administration Sevelamer Carbonate 800 mg 11/18/19 12:00 11/19/19 17:17 Renvela - PO 800 mg TIDCM UMBERTO Administration Sodium Bicarbonate 650 mg 11/18/19 22:00 11/19/19 09:47 Sodium Bicarbonate - PO 650 mg BID UMBERTO Administration Impression 1. Acute on chronic renal insufficiency 2. Chronic anema 3. Vaginal bleeding/Menses 4. Metabolic acidosis 5. DM 6. Suspected cystitis/pylonephritis 7. polycystic kidney disease Plan - cont to monitor renal function - cont bicarb - acidosis improving - monitor phos levels - avoid nsaids - returned goods sorter follow up - increase sevelamer dose
[2019-11-20] MEDS: MORPHINE SULFATE 2 MG/ML VIAL IVPUSH PRN ×2 (00:24→16:07)
[2019-11-20] MEDS: GABAPENTIN 300 MG CAPSULE PO SCH ×3 (06:09→21:45)
[2019-11-20] MEDS: INSULIN SLIDING SCALE (NOVOLOG) 1 VIAL SQ SCH ×4 (06:10→21:48)
[2019-11-20] MEDS: SODIUM BICARBONATE 650 MG TABLET PO SCH ×3 (06:10→21:46)
[2019-11-20] MEDS: LACTATED RINGERS SOLUTION 1,000 ML/1,000 ML INFUS.BAG IV SCH ×2 (06:10→16:19)
[2019-11-20 08:11] LABS: BLOOD UREA NITROGEN 62.9 mg/dL (7-18); CALCIUM 8.2 mg/dL (8.5-10.1); POTASSIUM 4.6 mmol/L (3.5-5.1)
[2019-11-20] MEDS: SEVELAMER CARBONATE 800 MG TAB (FP) PO SCH ×3 (08:37→17:32)
[2019-11-20] MEDS ORDERED: PT OWN MED DRAWER 7, Y5N ONE (09:37)
[2019-11-20] MEDS ORDERED: cefTRIAXone SODIUM 1 GM VIAL ONE (09:37)
[2019-11-20] MEDS ORDERED: DEXTROSE 5%-WATER - 50 ML IVPB ONE (09:38)
[2019-11-20] MEDS: CEFTRIAXONE 1 GM in DEXTROSE 5%-WATER - 50 ML IVPB SCH (09:47)
[2019-11-20] MEDS: BUDESONIDE/FORMETEROL FUMARATE 80/4.5 mcg INHALER IH SCH ×2 (09:47→22:05)
[2019-11-20] MEDS: PANTOPRAZOLE 40 MG TABLET PO SCH (09:48)
[2019-11-20] MEDS: PARoxetine HCL 10 MG TABLET PO SCH (09:48)
--- NOTE | 2019-11-20 10:53 | PN ---
Progress Note (short form) - Note Progress Note: She is improving no abdominal pain today out of bed she says she still having vaginal spotting on IV fluids. Her creatinine is gone up slightly today. Seen by nephrology yesterday. Vital Signs Period Temp Pulse Resp BP Sys/Farah Pulse Ox Last 24 Hr 98.1 F-99 F 93-96 18-18 117-150/69-75 100 Patient is comfortable HEENT normal Neck supple no JVD Lungs clear no wheezing Abdomen nontender no organomegaly bowel sounds normal Extremities no edema no cyanosis normal pulses Neurologically he is alert awake oriented, nonfocal Skin no rash noted CBC, BMP 11/19/19 07:25 11/20/19 06:55 ASSESSMENT AND PLAN: 39 y/o PMHx of IDDM with neuropathy, Polycystic Kidney Disease with CKD3, Anemia, Asthma, GERD, Nephrolithiasis, Anxiety/Depression presented with Suprapubic pain and Vaginal Bleeding. She is admitted for vaginal bleeding requiring blood transfusion and UTI in the setting of PKD. #UTI Continue antibiotics #VICENTE -In the setting of Polycystic Kidney Disease with CKD3; Current eGFR 10.3 calculated, baseline ~17 IV fluids Follow-up nephrology #Anemia 2/2 Menorrhagia & ? chronic disease Consult with FRAME WIRER Will repeat hemoglobin in the morning if it is below 7 she may need blood transfusion. Will start on oral iron therapy. 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 She understood. Visit type - Emergency Visit Emergency Visit: Yes ED Registration Date: 11/17/19 Care time: The patient presented to the Emergency Department on the above date and was hospitalized for further evaluation of their emergent condition. - New Patient This patient is new to me today: No - Critical Care Critical Care patient: No - Discharge Referral Referred to [facility] Med P.C.: No
[2019-11-20] MEDS ORDERED: BISACODYL 5 MG TABLET.DR (FP) PO ONE (12:00)
[2019-11-20] MEDS: DOCUSATE SODIUM 100 MG CAPSULE (FP) PO SCH ×2 (14:33→21:46)
--- NOTE | 2019-11-20 14:40 | PN ---
Progress Note, Physician History of Present Illness: Pt seen and examined at bedside. She is awake and alert. She denies shortness of breath. She denies dysuria or hematuria. - Current Medication List Current Medications: Active Medications Albuterol Sulfate (Ventolin 0.083% Nebulizer Soln -) 1 amp NEB Q6H PRN PRN Reason: SHORTNESS OF BREATH Budesonide/Formoterol Fumarate (Symbicort 80/4.5mcg -) 2 puff IH BID [facility] Last Admin: 11/20/19 09:47 Dose: 2 puff Documented by: Docusate Sodium (Colace -) 100 mg PO TID [facility] Last Admin: 11/20/19 14:33 Dose: 100 mg Documented by: Gabapentin (Neurontin -) 600 mg PO TID [facility] Last Admin: 11/20/19 14:33 Dose: 600 mg Documented by: Ceftriaxone Sodium 1 gm/ (Dextrose) 50 mls @ 100 mls/hr IVPB DAILY [facility]; Protocol Last Admin: 11/20/19 09:47 Dose: 100 mls/hr Documented by: Lactated Ringer's (Lactated Ringers Solution) 1,000 ml in 1,000 mls @ 75 mls/hr IV ASDIR [facility] Last Admin: 11/20/19 06:10 Dose: Not Given Documented by: Insulin Aspart (Novolog Vial Sliding Scale -) 1 vial SQ ACHS [facility]; Protocol Last Admin: 11/20/19 11:42 Dose: 2 unit Documented by: Morphine Sulfate (Morphine Sulfate) 2 mg IVPUSH Q6H PRN PRN Reason: PAIN LEVEL 6-10 Last Admin: 11/20/19 00:24 Dose: 2 mg Documented by: Pantoprazole Sodium (Protonix -) 40 mg PO DAILY [facility] Last Admin: 11/20/19 09:48 Dose: 40 mg Documented by: Paroxetine HCl (Paxil -) 10 mg PO DAILY [facility] Last Admin: 11/20/19 09:48 Dose: 10 mg Documented by: Sevelamer Carbonate (Renvela -) 1,600 mg PO TIDCM [facility] Last Admin: 11/20/19 12:07 Dose: 1,600 mg Documented by: Sodium Bicarbonate (Sodium Bicarbonate -) 650 mg PO TID [facility] Last Admin: 11/20/19 14:33 Dose: 650 mg Documented by: - Objective Vital Signs: Vital Signs Temperature 97.9 F 11/20/19 13:00 Pulse Rate 94 H 11/20/19 13:00 Respiratory Rate 18 11/20/19 13:00 Blood Pressure 155/76 11/20/19 13:00 O2 Sat by Pulse Oximetry (%) 98 11/20/19 09:00 Constitutional: Yes: Calm Eyes: Yes: Conjunctiva Clear HENT: Yes: Atraumatic Neck: Yes: Supple Cardiovascular: Yes: S1, S2 Respiratory: Yes: CTA Bilaterally Gastrointestinal: Yes: Soft, Abdomen, Obese Genitourinary: Yes: WNL Musculoskeletal: Yes: WNL Edema: No Neurological: Yes: Oriented Psychiatric: Yes: Oriented Labs: CBC, BMP 11/19/19 07:25 11/20/19 06:55 Assessment/Plan Current Medications Generic Name Dose Route Start Last Admin Trade Name Freq PRN Reason Stop Dose Admin Albuterol Sulfate 1 amp 11/18/19 10:54 Ventolin 0.083% Nebulizer Soln - NEB Q6H PRN SHORTNESS OF BREATH Budesonide/Formoterol Fumarate 2 puff 11/18/19 14:00 11/20/19 09:47 Symbicort 80/4.5mcg - IH 2 puff BID UMBERTO Administration Docusate Sodium 100 mg 11/20/19 14:00 11/20/19 14:33 Colace - PO 100 mg TID UMBERTO Administration Gabapentin 600 mg 11/18/19 14:00 11/20/19 14:33 Neurontin - PO 600 mg TID [facility]ERTO Administration Ceftriaxone Sodium 1 gm/ 50 mls @ 100 mls/hr 11/18/19 10:00 11/20/19 09:47 Dextrose IVPB 100 mls/hr DAILY [facility]MBERTO Administration Protocol Lactated Ringer's 1,000 ml in 1,000 mls @ 75 mls/hr 11/18/19 06:00 11/20/19 06:10 Lactated Ringers Solution IV Not Given ASDIR UMBERTO Insulin Aspart 1 vial 11/18/19 07:00 11/20/19 11:42 Novolog Vial Sliding Scale - SQ 2 unit ACHS UMBERTO Administration Protocol Morphine Sulfate 2 mg 11/18/19 14:47 11/20/19 00:24 Morphine Sulfate IVPUSH 2 mg Q6H PRN Administration PAIN LEVEL 6-10 Pantoprazole Sodium 40 mg 11/19/19 10:00 11/20/19 09:48 Protonix - PO 40 mg DAILY UMBERTO Administration Paroxetine HCl 10 mg 11/19/19 10:00 11/20/19 09:48 Paxil - PO 10 mg DAILY UMBERTO Administration Sevelamer Carbonate 1,600 mg 11/19/19 18:32 11/20/19 12:07 Renvela - PO 1,600 mg TIDCM [facility]MBERTO Administration Sodium Bicarbonate 650 mg 11/19/19 22:00 11/20/19 14:33 Sodium Bicarbonate - PO 650 mg TID UMBERTO Administration Impression 1. Acute on chronic renal insufficiency 2. Chronic anema 3. Vaginal bleeding/Menses 4. Metabolic acidosis 5. DM 6. Suspected cystitis/pylonephritis 7. polycystic kidney disease Plan - monitor renal function - cont po bicarb - check phos levels - monitor bicarb - avoid nsaids - slip tender follow up - sevelemer at 1600mg with meals
[2019-11-20] MEDS ORDERED: guaiFENesin/D-M SUGAR-FREE/ACLHOL-FREE 118 ML BOTTLE PO PRN (22:11)
[2019-11-21] MEDS: LACTATED RINGERS SOLUTION 1,000 ML/1,000 ML INFUS.BAG IV SCH (05:38)
[2019-11-21] MEDS: GABAPENTIN 300 MG CAPSULE PO SCH ×3 (05:39→21:45)
[2019-11-21] MEDS: SODIUM BICARBONATE 650 MG TABLET PO SCH ×2 (05:39→21:46)
[2019-11-21] MEDS: DOCUSATE SODIUM 100 MG CAPSULE (FP) PO SCH ×3 (05:39→21:46)
[2019-11-21] MEDS: ALBUTEROL SO4 0.083% IH SOL 2.5 MG/3 ML VIAL.NEB. NEB PRN (06:03)
[2019-11-21] MEDS: INSULIN SLIDING SCALE (NOVOLOG) 1 VIAL SQ SCH ×4 (06:48→21:46)
[2019-11-21] MEDS ORDERED: DEXTROSE 5%-WATER - 50 ML IVPB ONE (08:57)
[2019-11-21] MEDS ORDERED: cefTRIAXone SODIUM 1 GM VIAL ONE (08:57)
[2019-11-21 08:58] LABS: BASO % 0.4 % (0-2.0); EOS % 0.8 % (0-4.5); HEMATOCRIT 22.5 % (32.4-45.2); HEMOGLOBIN 7.2 GM/dL (10.7-15.3); LYMPH % 15.7 % (8-40); MCH 26.8 pg (25.7-33.7); MCHC 31.9 g/dl (32.0-36.0); MEAN CELL VOLUME 84.1 fl (80-96); MEAN PLT VOLUME 8.2 fl (7.5-11.1); MONO % 8.1 % (3.8-10.2); PLATELET COUNT 206 K/MM3 (134-434); RBC 2.67 M/mm3 (3.60-5.2); RDW 15.1 % (11.6-15.6); WHITE BLOOD COUNT 13.1 K/mm3 (4.0-10.0)
[2019-11-21] MEDS: BUDESONIDE/FORMETEROL FUMARATE 80/4.5 mcg INHALER IH SCH ×2 (09:00→21:47)
[2019-11-21] MEDS: CEFTRIAXONE 1 GM in DEXTROSE 5%-WATER - 50 ML IVPB SCH (09:00)
[2019-11-21] MEDS: PARoxetine HCL 10 MG TABLET PO SCH (09:00)
[2019-11-21] MEDS: PANTOPRAZOLE 40 MG TABLET PO SCH (09:00)
[2019-11-21] MEDS: SEVELAMER CARBONATE 800 MG TAB (FP) PO SCH ×3 (09:00→17:55)
--- NOTE | 2019-11-21 09:02 | PN ---
Teaching Attending Note Name of Resident: Zion Jones ATTENDING PHYSICIAN STATEMENT I saw and evaluated the patient. I reviewed the resident's note and discussed the case with the resident. I agree with the resident's findings and plan as documented. SUBJECTIVE:ppatient seen and examined eexamination unchained OBJECTIVE: CBC, BMP 11/21/19 07:42 11/21/19 07:42 ASSESSMENT AND PLAN: renal insufficiency anemia patient is seen by SEWER PIPE LAYER HELPER today and recommended D/c continue current care
[2019-11-21 09:03] LABS: BLOOD UREA NITROGEN 59.6 mg/dL (7-18); CALCIUM 8.4 mg/dL (8.5-10.1); POTASSIUM 4.4 mmol/L (3.5-5.1)
[2019-11-21] MEDS ORDERED: INSULIN (NOVOLOG) ASPART 100 UNITS/ML 10ML VIAL ONE ×2 (11:44→21:32)
--- NOTE | 2019-11-21 12:28 | PN ---
Physical Exam: SUBJECTIVE: Patient seen and examined at bedside. OBJECTIVE: Vital Signs Period Temp Pulse Resp BP Sys/Farah Pulse Ox Last 24 Hr 97.9 F-99.6 F 91-102 18-18 122-155/64-87 97-98 Gen: AAOx3, NAD HEENT: NCAT, Eomi Neck: supple Cardio: rrr, normal s1s2, no mrg noted Pulm: cta b/l Abd: obese, soft, nontender Ext: no edema Laboratory Results - last 24 hr 11/17/19 11/20/19 11/20/19 19:08 11:15 17:30 WBC RBC Hgb Hct MCV MCH MCHC RDW Plt Count MPV Absolute Neuts (auto) Neutrophils % Lymphocytes % Monocytes % Eosinophils % Basophils % Nucleated RBC % Sodium Potassium Chloride Carbon Dioxide Anion Gap BUN Creatinine Est GFR (CKD-EPI)AfAm Est GFR (CKD-EPI)NonAf POC Glucometer 171 Random Glucose Calcium U Random Total Protein 427.7 H Ur Random Sodium 45 Urine Creatinine 36.0 Protein/Creatinin Ratio 11.9 Blood Type O POSITIVE Antibody Screen Negative Crossmatch See Detail 11/20/19 11/21/19 11/21/19 21:44 05:31 07:42 WBC 13.1 H RBC 2.67 L Hgb 7.2 L Hct 22.5 L MCV 84.1 MCH 26.8 MCHC 31.9 L RDW 15.1 Plt Count 206 MPV 8.2 Absolute Neuts (auto) 9.8 H Neutrophils % 75.0 Lymphocytes % 15.7 Monocytes % 8.1 Eosinophils % 0.8 Basophils % 0.4 Nucleated RBC % 0 Sodium Potassium Chloride Carbon Dioxide Anion Gap BUN Creatinine Est GFR (CKD-EPI)AfAm Est GFR (CKD-EPI)NonAf POC Glucometer 195 131 Random Glucose Calcium U Random Total Protein Ur Random Sodium Urine Creatinine Protein/Creatinin Ratio Blood Type Antibody Screen Crossmatch 11/21/19 11/21/19 07:42 11:41 WBC RBC Hgb Hct MCV MCH MCHC RDW Plt Count MPV Absolute Neuts (auto) Neutrophils % Lymphocytes % Monocytes % Eosinophils % Basophils % Nucleated RBC % Sodium 139 Potassium 4.4 Chloride 110 H Carbon Dioxide 16 L Anion Gap 13 BUN 59.6 H Creatinine 5.0 H Est GFR (CKD-EPI)AfAm 11.83 Est GFR (CKD-EPI)NonAf 10.20 POC Glucometer 207 Random Glucose 144 H Calcium 8.4 L U Random Total Protein Ur Random Sodium Urine Creatinine Protein/Creatinin Ratio Blood Type Antibody Screen Crossmatch Active Medications Generic Name Dose Route Start Last Admin Trade Name Freq PRN Reason Stop Dose Admin Albuterol Sulfate 1 amp 11/18/19 10:54 11/21/19 06:03 Ventolin 0.083% Nebulizer Soln - NEB 1 amp Q6H PRN Administration SHORTNESS OF BREATH Budesonide/Formoterol Fumarate 2 puff 11/18/19 14:00 11/21/19 09:00 Symbicort 80/4.5mcg - IH 2 puff BID UMBERTO Administration Docusate Sodium 100 mg 11/20/19 14:00 11/21/19 05:39 Colace - PO 100 mg TID UMBERTO Administration Gabapentin 600 mg 11/18/19 14:00 11/21/19 05:39 Neurontin - PO 600 mg TID UMBERTO Administration Guaifenesin 10 ml 11/20/19 22:11 11/20/19 22:44 Diabetic Tussin Dm - PO 10 ml ONCE PRN Administration COUGH Ceftriaxone Sodium 1 gm/ 50 mls @ 100 mls/hr 11/18/19 10:00 11/21/19 09:00 Dextrose IVPB 100 mls/hr DAILY UMBERTO Administration Protocol Lactated Ringer's 1,000 ml in 1,000 mls @ 75 mls/hr 11/18/19 06:00 11/21/19 05:38 Lactated Ringers Solution IV 75 mls/hr ASDIR UMBERTO Administration Insulin Aspart 1 vial 11/18/19 07:00 11/21/19 11:46 Novolog Vial Sliding Scale - SQ 4 unit ACHS UMBERTO Administration Protocol Morphine Sulfate 2 mg 11/18/19 14:47 11/20/19 16:07 Morphine Sulfate IVPUSH 2 mg Q6H PRN Administration PAIN LEVEL 6-10 Pantoprazole Sodium 40 mg 11/19/19 10:00 11/21/19 09:00 Protonix - PO 40 mg DAILY UMBERTO Administration Paroxetine HCl 10 mg 11/19/19 10:00 11/21/19 09:00 Paxil - PO 10 mg DAILY UMBERTO Administration Sevelamer Carbonate 1,600 mg 11/19/19 18:32 11/21/19 09:00 Renvela - PO 1,600 mg TIDCM UMBERTO Administration Sodium Bicarbonate 1,300 mg 11/21/19 22:00 Sodium Bicarbonate - PO BID UMBERTO ASSESSMENT/PLAN: 39 y/o PMHx of IDDM with neuropathy, Polycystic Kidney Disease with CKD3, Anemia, Asthma, GERD, Nephrolithiasis, Anxiety/Depression presented with Suprapubic pain and Vaginal Bleeding. She is admitted for vaginal bleeding requiring blood transfusion and UTI in the setting of PKD. #UTI -afebrile. Leukocytosis -Prior cx positive for Proteus Mirabilis sensitive to Ceftriaxone -c/w Ceftriaxone (11/18/2019) -UCx with Group B Strep 40,000 CFU #VICENTE -In the setting of Polycystic Kidney Disease with CKD3; Current eGFR 10.3 calculated, baseline ~17 -c/w Bicarb -Nephrology on board #Anemia 2/2 Menorrhagia & ? chronic disease -Pending input from RIVER CROSSING SUPERVISOR. New consult placed -TVUS significant for endometrial thickening +/- debris without discrete mass -f/u repeat CBC -H&H stable presently #Leukocytosis -Likely due to UTI -CXR without any acute pathology -CT A/P Pending official report -Cx neg, C. diff neg, stool Cx negative #IDDM with neuropathy -BGM ISS ACHS #Asthma -symbicort, ventolin #Frequent falls -Fall precautions -Physical therapy evaluation -Check B12/Folate/TSH #PPx -DVT: SCDs, Hold chemical ppx in the setting of anemia Dispo: Admit to medsur Visit type - Emergency Visit Emergency Visit: No - New Patient This patient is new to me today: No - Critical Care Critical Care patient: No ATTENDING PHYSICIAN STATEMENT I saw and evaluated the patient. I reviewed the resident's note and discussed the case with the resident. I agree with the resident's findings and plan as documented. SUBJECTIVE: OBJECTIVE: ASSESSMENT AND PLAN:
--- NOTE | 2019-11-21 15:27 | CON.OBG ---
Consult Consult Specialty:: PICKER / PACKER - History of Present Illness Chief Complaint: Vaginal bleeding History of Present Illness: 39 year old female Para 2, with a significant PMH of IDDM, anemia, asthma, depression, anxiety and bipolar, presented to the ED for evaluation of vaginal bleeding and abdominal pain for several months. Patient notes she became symptomatic after she had a depo shot last year. She reports soaking through many pads. She has not seen a PICKER / PACKER in a long time. She had 2 prior c-sections. I came to evaluate patient; she denies any current vaginal bleeding but claims that bleeding has been on and off for a long time. Transvaginal sonogram reviewed, there is evidence of endometrial echo complex but no masses. She's severely anemic and has h/o polycystic kidney disease. - History Source History Provided By: Patient Limitations to Obtaining History: No Limitations - Past Medical History Renal/: Yes: Renal Inusuff, Other (PCKD) ...LMP: 11/03/19 ...: No ...Para: 2 Endocrine: Yes: Diabetes Mellitus - Past Surgical History Past Surgical History: Yes: - Alcohol/Substance Use Hx Alcohol Use: No - Smoking History Smoking history: Never smoked Have you smoked in the past 12 months: No Aproximately how many cigarettes per day: 0 - Social History History of Recent Travel: No Home Medications - Allergies Allergies/Adverse Reactions: Allergies Allergy/AdvReac Type Severity Reaction Status Date / Time No Known Allergies Allergy Verified 11/17/19 17:26 - Home Medications Home Medications: Ambulatory Orders Albuterol 0.083% Nebulizer Sarina [Ventolin 0.083% Nebulizer Soln -] 1 neb NEB Q6H PRN 10/06/17 Budesonide/Formeterol Fumarate [SYMBICORT 80/4.5mcg -] 1 inh PO DAILY 10/06/17 Insulin Glargine,Hum.rec.anlog [Lantus] 50 unit SQ BID 10/06/17 Insulin Lispro [Humalog] 30 unit SQ TID 04/18/18 Esomeprazole Magnesium [Nexium 24Hr] 40 mg PO DAILY 05/28/18 Gabapentin [Neurontin] 600 mg PO TID 10/09/19 Sevelamer Carbonate [Renvela -] 800 mg PO TIDCM #90 tab 10/12/19 Dulaglutide [Trulicity] 1.5 mg SQ Q7D 11/18/19 Losartan Potassium 50 mg PO DAILY 11/18/19 Paroxetine HCl [Paxil -] 10 mg PO DAILY 11/18/19 Sodium Bicarbonate - 650 mg PO BID 11/18/19 Family Medical History Family History: Unremarkable Review of Systems - Review of Systems Constitutional: reports: No Symptoms Eyes: reports: No Symptoms HENT: reports: No Symptoms Neck: reports: No Symptoms Cardiovascular: reports: No Symptoms Respiratory: reports: No Symptoms Gastrointestinal: reports: No Symptoms Genitourinary: reports: Vaginal Bleeding Breasts: reports: No Symptoms Reported Musculoskeletal: reports: No Symptoms Neurological: reports: No Symptoms Physical Exam-PICKER / PACKER Vital Signs: Vital Signs Temperature 99.6 F 11/21/19 10:00 Pulse Rate 102 H 11/21/19 10:00 Respiratory Rate 18 11/21/19 10:00 Blood Pressure 122/73 11/21/19 10:00 O2 Sat by Pulse Oximetry (%) 97 11/21/19 10:00 Constitutional: Yes: No Distress Eyes: Yes: Conjunctiva Clear HENT: Yes: Atraumatic Neck: Yes: Supple Cardiovascular: Yes: Regular Rate and Rhythm Respiratory: Yes: Regular Gastrointestinal: Yes: Normal Bowel Sounds Vaginal Exam: Yes: Normal Cervix: Yes: Normal Uterus: No: Enlarged Musculoskeletal: Yes: WNL Extremities: Yes: WNL Neurological: Yes: Alert, Oriented ...Motor Strength: WNL Psychiatric: Yes: Alert, Oriented Labs: CBC, BMP 11/21/19 07:42 11/21/19 07:42 Problem List - Problems (1) Abnormal vaginal bleeding in premenopausal patient Problems reviewed: Yes Code(s): N92.4 - EXCESSIVE BLEEDING IN THE PREMENOPAUSAL PERIOD Assessment/Plan Abnormal vaginal bleeding Anemia Personal h/o diabetes Personal h/o Polycystic kidney disease D&C hysteroscopy recommended Pre op for D&C hysteroscopy for 11/23/19 NPO after midnight tomorrow
--- NOTE | 2019-11-21 17:42 | PN ---
Progress Note, Physician Chief Complaint: VICENTE on CKD History of Present Illness: Seen and examined at the bedside awake and alert continues to have lower back and pelvic pain had some bleeding from her vagina yesterday but none today no sob, cp, fever or chills making urine appetite is good - Current Medication List Current Medications: Active Medications Albuterol Sulfate (Ventolin 0.083% Nebulizer Soln -) 1 amp NEB Q6H PRN PRN Reason: SHORTNESS OF BREATH Last Admin: 11/21/19 06:03 Dose: 1 amp Documented by: Budesonide/Formoterol Fumarate (Symbicort 80/4.5mcg -) 2 puff IH BID [facility] Last Admin: 11/21/19 09:00 Dose: 2 puff Documented by: Docusate Sodium (Colace -) 100 mg PO TID [facility] Last Admin: 11/21/19 14:33 Dose: 100 mg Documented by: Gabapentin (Neurontin -) 600 mg PO TID [facility] Last Admin: 11/21/19 14:33 Dose: 600 mg Documented by: Guaifenesin (Diabetic Tussin Dm -) 10 ml PO ONCE PRN PRN Reason: COUGH Last Admin: 11/20/19 22:44 Dose: 10 ml Documented by: Ceftriaxone Sodium 1 gm/ (Dextrose) 50 mls @ 100 mls/hr IVPB DAILY [facility]; Protocol Last Admin: 11/21/19 09:00 Dose: 100 mls/hr Documented by: Lactated Ringer's (Lactated Ringers Solution) 1,000 ml in 1,000 mls @ 75 mls/hr IV ASDIR [facility] Last Admin: 11/21/19 05:38 Dose: 75 mls/hr Documented by: Insulin Aspart (Novolog Vial Sliding Scale -) 1 vial SQ ACHS [facility]; Protocol Last Admin: 11/21/19 17:02 Dose: 4 unit Documented by: Morphine Sulfate (Morphine Sulfate) 2 mg IVPUSH Q6H PRN PRN Reason: PAIN LEVEL 6-10 Last Admin: 11/20/19 16:07 Dose: 2 mg Documented by: Pantoprazole Sodium (Protonix -) 40 mg PO DAILY [facility] Last Admin: 11/21/19 09:00 Dose: 40 mg Documented by: Paroxetine HCl (Paxil -) 10 mg PO DAILY [facility] Last Admin: 11/21/19 09:00 Dose: 10 mg Documented by: Sevelamer Carbonate (Renvela -) 1,600 mg PO TIDCM [facility] Last Admin: 11/21/19 12:39 Dose: 1,600 mg Documented by: Sodium Bicarbonate (Sodium Bicarbonate -) 1,300 mg PO BID [facility] - Objective Vital Signs: Vital Signs Temperature 99.0 F 11/21/19 14:10 Pulse Rate 100 H 11/21/19 14:10 Respiratory Rate 18 11/21/19 14:10 Blood Pressure 122/68 11/21/19 14:10 O2 Sat by Pulse Oximetry (%) 97 11/21/19 10:00 Constitutional: Yes: No Distress HENT: Yes: Atraumatic Neck: Yes: Supple Cardiovascular: Yes: Regular Rate and Rhythm Respiratory: Yes: Regular Gastrointestinal: Yes: Soft, Tenderness Extremities: No: Cyanosis Edema: No Neurological: Yes: Alert, Oriented Labs: CBC, BMP 11/21/19 07:42 11/21/19 07:42 Assessment/Plan 9 year old woman with history of polycystic kidney disease, CKD stage 3/4, IDDM who presented from home with complaints of vaginal bleeding and found to have anemia and VICENTE with CR of 5. 1. Acute on chronic renal insufficiency 2. Chronic anema 3. Vaginal bleeding/Menses 4. Metabolic acidosis 5. DM 6. Suspected cystitis/pylonephritis Renal function overall unchanged There is no emergent indication for STARCH MANGLE TENDER at this time. Will discontinue IVF as pt is tolerating oral diet well. Will trend renal function over time to monitor for improvement. no evidence of obstruction on CT imaging of the abdomen Continue sodium bicarb 1300mg BID Continue renvela with meals Hgb improved s/p prbc but now trending back down. For leona tomorrow. will give EKTA today, iron saturation at goal. Continue empiric antibiotics pain control PRN w/o NSAIDs Thank you Brian Dahl DO
[2019-11-21] MEDS ORDERED: EPOETIN ALFA 20,000 UNIT/1 ML VIAL SQ ONE (18:00)
[2019-11-22] MEDS: MORPHINE SULFATE 2 MG/ML VIAL IVPUSH PRN ×2 (00:12→18:11)
[2019-11-22] MEDS ORDERED: ACETAMINOPHEN 325 MG TABLET (FP) PO PRN (02:50)
[2019-11-22] MEDS: DOCUSATE SODIUM 100 MG CAPSULE (FP) PO SCH ×3 (05:52→22:54)
[2019-11-22] MEDS: GABAPENTIN 300 MG CAPSULE PO SCH ×3 (05:52→22:54)
[2019-11-22] MEDS: INSULIN SLIDING SCALE (NOVOLOG) 1 VIAL SQ SCH ×4 (06:00→23:04)
[2019-11-22] MEDS: SEVELAMER CARBONATE 800 MG TAB (FP) PO SCH ×3 (08:14→17:42)
[2019-11-22 08:18] LABS: BASO % 0.7 % (0-2.0); EOS % 0.8 % (0-4.5); HEMATOCRIT 21.5 % (32.4-45.2); MCH 27.4 pg (25.7-33.7); MCHC 32.3 g/dl (32.0-36.0); MEAN CELL VOLUME 84.7 fl (80-96); MEAN PLT VOLUME 8.8 fl (7.5-11.1); MONO % 7.6 % (3.8-10.2); NEUT % 76.9 % (42.8-82.8); PLATELET COUNT 252 K/MM3 (134-434); RBC 2.54 M/mm3 (3.60-5.2); RDW 15.1 % (11.6-15.6); WHITE BLOOD COUNT 11.8 K/mm3 (4.0-10.0)
[2019-11-22 08:30] LABS: BLOOD UREA NITROGEN 55.6 mg/dL (7-18); CREATININE 5.1 mg/dL (0.55-1.3); HEMOGLOBIN 6.9 GM/dL (10.7-15.3); MAGNESIUM 1.8 mg/dL (1.8-2.4); PHOSPHOROUS 6.4 mg/dL (2.5-4.9); POTASSIUM 4.6 mmol/L (3.5-5.1)
[2019-11-22] MEDS ORDERED: cefTRIAXone SODIUM 1 GM VIAL ONE (09:11)
[2019-11-22] MEDS ORDERED: DEXTROSE 5%-WATER - 50 ML IVPB ONE (09:11)
[2019-11-22] MEDS: PANTOPRAZOLE 40 MG TABLET PO SCH (09:20)
[2019-11-22] MEDS: CEFTRIAXONE 1 GM in DEXTROSE 5%-WATER - 50 ML IVPB SCH (09:20)
[2019-11-22] MEDS: PARoxetine HCL 10 MG TABLET PO SCH (09:20)
[2019-11-22] MEDS: SODIUM BICARBONATE 650 MG TABLET PO SCH ×2 (09:20→22:58)
[2019-11-22] MEDS: BUDESONIDE/FORMETEROL FUMARATE 80/4.5 mcg INHALER IH SCH ×2 (09:21→22:58)
[2019-11-22] MEDS: ALBUTEROL SO4 0.083% IH SOL 2.5 MG/3 ML VIAL.NEB. NEB PRN ×2 (11:40→21:22)
--- NOTE | 2019-11-22 13:11 | PN ---
Physical Exam: SUBJECTIVE: Patient seen and examined at bedside. OBJECTIVE: Vital Signs Period Temp Pulse Resp BP Sys/Farah Pulse Ox Last 24 Hr 97.5 F-100.1 F 100-106 18-20 118-135/58-68 93-97 GENERAL: The patient is awake, alert, and fully oriented, in no acute distress. HEAD: Normal with no signs of trauma. EYES: PERRL, extraocular movements intact, sclera anicteric, conjunctiva clear. No ptosis. ENT: Ears normal, nares patent, oropharynx clear without exudates, moist mucous membranes. NECK: Trachea midline, full range of motion, supple. LUNGS: Breath sounds equal, clear to auscultation bilaterally, no wheezes, no crackles, no accessory muscle use. HEART: Regular rate and rhythm, S1, S2 without murmur, rub or gallop. ABDOMEN: Obese, Soft, nontender, nondistended, normoactive bowel sounds, no guarding, no rebound, no hepatosplenomegaly, no masses. EXTREMITIES: 2+ pulses, warm, well-perfused, no edema. NEUROLOGICAL: Cranial nerves II through XII grossly intact. Normal speech, gait not observed. PSYCH: Normal mood, normal affect. SKIN: Warm, dry, normal turgor, no rashes or lesions noted Laboratory Results - last 24 hr 11/21/19 11/21/19 11/22/19 16:59 21:43 05:50 WBC RBC Hgb Hct MCV MCH MCHC RDW Plt Count MPV Absolute Neuts (auto) Neutrophils % Lymphocytes % Monocytes % Eosinophils % Basophils % Nucleated RBC % Sodium Potassium Chloride Carbon Dioxide Anion Gap BUN Creatinine Est GFR (CKD-EPI)AfAm Est GFR (CKD-EPI)NonAf POC Glucometer 230 226 152 Random Glucose Calcium Phosphorus Magnesium Blood Type Antibody Screen Crossmatch 11/22/19 11/22/19 11/22/19 06:45 06:45 08:25 WBC 11.8 H RBC 2.54 L Hgb 6.9 L* Hct 21.5 L MCV 84.7 MCH 27.4 MCHC 32.3 RDW 15.1 Plt Count 252 D MPV 8.8 Absolute Neuts (auto) 9.1 H Neutrophils % 76.9 Lymphocytes % 14.0 Monocytes % 7.6 Eosinophils % 0.8 Basophils % 0.7 Nucleated RBC % 0 Sodium 138 Potassium 4.6 Chloride 111 H Carbon Dioxide 17 L Anion Gap 11 BUN 55.6 H Creatinine 5.1 H Est GFR (CKD-EPI)AfAm 11.54 Est GFR (CKD-EPI)NonAf 9.96 POC Glucometer Random Glucose 143 H Calcium 8.0 L Phosphorus 6.4 H Magnesium 1.8 Blood Type O POSITIVE Antibody Screen Negative Crossmatch See Detail 11/22/19 10:47 WBC RBC Hgb Hct MCV MCH MCHC RDW Plt Count MPV Absolute Neuts (auto) Neutrophils % Lymphocytes % Monocytes % Eosinophils % Basophils % Nucleated RBC % Sodium Potassium Chloride Carbon Dioxide Anion Gap BUN Creatinine Est GFR (CKD-EPI)AfAm Est GFR (CKD-EPI)NonAf POC Glucometer 169 Random Glucose Calcium Phosphorus Magnesium Blood Type Antibody Screen Crossmatch Active Medications Generic Name Dose Route Start Last Admin Trade Name Freq PRN Reason Stop Dose Admin Acetaminophen 650 mg 11/22/19 02:50 Tylenol - PO Q6H PRN FEVER Albuterol Sulfate 1 amp 11/18/19 10:54 11/22/19 11:40 Ventolin 0.083% Nebulizer Soln - NEB 1 amp Q6H PRN Administration SHORTNESS OF BREATH Budesonide/Formoterol Fumarate 2 puff 11/18/19 14:00 11/22/19 09:21 Symbicort 80/4.5mcg - IH 2 puff BID UMBERTO Administration Docusate Sodium 100 mg 11/20/19 14:00 11/22/19 05:52 Colace - PO 100 mg TID UMBERTO Administration Gabapentin 600 mg 11/22/19 06:00 11/22/19 05:52 Neurontin - PO 600 mg TID UMBERTO Administration Guaifenesin 10 ml 11/20/19 22:11 11/20/19 22:44 Diabetic Tussin Dm - PO 10 ml ONCE PRN Administration COUGH Ceftriaxone Sodium 1 gm/ 50 mls @ 100 mls/hr 11/18/19 10:00 11/22/19 09:20 Dextrose IVPB 100 mls/hr DAILY UMBERTO Administration Protocol Insulin Aspart 1 vial 11/18/19 07:00 11/22/19 10:51 Novolog Vial Sliding Scale - SQ 2 unit ACHS UMBERTO Administration Protocol Morphine Sulfate 2 mg 11/18/19 14:47 11/22/19 00:12 Morphine Sulfate IVPUSH 2 mg Q6H PRN Administration PAIN LEVEL 6-10 Pantoprazole Sodium 40 mg 11/19/19 10:00 11/22/19 09:20 Protonix - PO 40 mg DAILY UMBERTO Administration Paroxetine HCl 10 mg 11/19/19 10:00 11/22/19 09:20 Paxil - PO 10 mg DAILY UMBERTO Administration Sevelamer Carbonate 1,600 mg 11/19/19 18:32 11/22/19 11:43 Renvela - PO Not Given TIDCM UMBERTO Sodium Bicarbonate 1,300 mg 11/21/19 22:00 11/22/19 09:20 Sodium Bicarbonate - PO 1,300 mg BID UMBERTO Administration ASSESSMENT/PLAN: 39 y/o PMHx of IDDM with neuropathy, Polycystic Kidney Disease with CKD3, Anemia, Asthma, GERD, Nephrolithiasis, Anxiety/Depression presented with Suprapubic pain and Vaginal Bleeding. She is admitted for vaginal bleeding requiring blood transfusion and UTI in the setting of PKD. #UTI -afebrile. Leukocytosis -Prior cx positive for Proteus Mirabilis sensitive to Ceftriaxone -c/w Ceftriaxone (11/18/2019) -UCx with Group B Strep 40,000 CFU #VICENTE -In the setting of Polycystic Kidney Disease with CKD3; Current eGFR 10.3 calculated, baseline ~17 -c/w Bicarb -Nephrology on board #Anemia 2/2 Menorrhagia & ? chronic disease -TVUS significant for endometrial thickening +/- debris without discrete mass -f/u repeat CBC -transfuse 1 prbc today -MICROBIOLOGICAL LABORATORY TECHNICIAN on board. Plan for D&C #Leukocytosis -Likely due to UTI -CXR without any acute pathology -CT A/P Pending official report -Cx neg, C. diff neg, stool Cx negative #IDDM with neuropathy -BGM ISS ACHS #Asthma -symbicort, ventolin #Frequent falls -Fall precautions -Physical therapy evaluation -Check B12/Folate/TSH #PPx -DVT: SCDs, Hold chemical ppx in the setting of anemia Dispo: Admit to medsurg Visit type - Emergency Visit Emergency Visit: No - New Patient This patient is new to me today: No - Critical Care Critical Care patient: No ATTENDING PHYSICIAN STATEMENT I saw and evaluated the patient. I reviewed the resident's note and discussed the case with the resident. I agree with the resident's findings and plan as documented. SUBJECTIVE: OBJECTIVE: ASSESSMENT AND PLAN:
[2019-11-22] MEDS ORDERED: PROPOFOL 20 ML ONE (14:00)
[2019-11-22] MEDS ORDERED: SUCCINYLCHOLINE CHLORIDE 200 MG/10 ML SYRINGE ONE (14:00)
[2019-11-22] MEDS ORDERED: MIDAZOLAM HCL 2 MG/2 ML SINGLE DOSE VIAL ONE (14:00)
[2019-11-22] MEDS ORDERED: LIDOCAINE HCL 2% (20ML MULTI-DOSE VIAL) ONE (14:03)
--- NOTE | 2019-11-22 15:34 | OP ---
Operative Note - Note: Operative Date: 11/22/19 Pre-Operative Diagnosis: Vaginal bleeding / Anemia Operation: D&C Hysteroscopy Findings: Friable cervical tissue Post-Operative Diagnosis: Same as Pre-op Surgeon: Kia Swanson Anesthesia: General Specimens Removed: Enocervical curettings Estimated Blood Loss (mls): 50
[2019-11-22] MEDS: LACTATED RINGERS SOLUTION 1,000 ML IV SCH (17:38)
[2019-11-22 19:47] LABS: BASO % 0.4 % (0-2.0); HEMATOCRIT 27.7 % (32.4-45.2); LYMPH % 4.1 % (8-40); MCHC 32.5 g/dl (32.0-36.0); MEAN PLT VOLUME 8.3 fl (7.5-11.1); MONO % 1.3 % (3.8-10.2); NEUT % 94.2 % (42.8-82.8); PLATELET COUNT 249 K/MM3 (134-434); RBC 3.22 M/mm3 (3.60-5.2); RDW 15.3 % (11.6-15.6); WHITE BLOOD COUNT 15.2 K/mm3 (4.0-10.0)
[2019-11-22 21:49] LABS: ANISOCYTOSIS 1+; MACROCYTOSIS 0
[2019-11-23] MEDS: DOCUSATE SODIUM 100 MG CAPSULE (FP) PO SCH ×2 (06:05→13:58)
[2019-11-23] MEDS: GABAPENTIN 300 MG CAPSULE PO SCH ×2 (06:05→13:58)
[2019-11-23] MEDS: INSULIN SLIDING SCALE (NOVOLOG) 1 VIAL SQ SCH ×2 (06:05→11:52)
[2019-11-23] MEDS: ALBUTEROL SO4 0.083% IH SOL 2.5 MG/3 ML VIAL.NEB. NEB PRN (08:10)
[2019-11-23] MEDS: SEVELAMER CARBONATE 800 MG TAB (FP) PO SCH ×2 (08:39→11:53)
--- NOTE | 2019-11-23 09:30 | CON.HO ---
Consult - text type - Consultation Consultation Note: Hematology SHe had a hysteroscopy, D&C adn cervicaql courettage and on 11/21: WBC 15.2, Hb 9, [id number]. Anemia from vaginal bleeding and chronic disease. FOllowup ersults of Hysteroscopy. If vaginal bleeding stablizies, anemia should improve.
[2019-11-23] MEDS: LACTATED RINGERS SOLUTION 1,000 ML IV SCH (09:31)
[2019-11-23] MEDS ORDERED: PT OWN MED DRAWER 7, Y5N ONE (09:34)
[2019-11-23] MEDS ORDERED: cefTRIAXone SODIUM 1 GM VIAL ONE (09:35)
[2019-11-23] MEDS ORDERED: DEXTROSE 5%-WATER - 50 ML IVPB ONE (09:35)
[2019-11-23] MEDS: CEFTRIAXONE 1 GM in DEXTROSE 5%-WATER - 50 ML IVPB SCH (09:36)
[2019-11-23] MEDS: PANTOPRAZOLE 40 MG TABLET PO SCH (09:37)
[2019-11-23] MEDS: PARoxetine HCL 10 MG TABLET PO SCH (09:37)
[2019-11-23] MEDS: SODIUM BICARBONATE 650 MG TABLET PO SCH (09:37)
[2019-11-23 10:11] LABS: BASO % 0.3 % (0-2.0); HEMATOCRIT 30.2 % (32.4-45.2); LYMPH % 8.7 % (8-40); MCH 28.5 pg (25.7-33.7); MCHC 33.2 g/dl (32.0-36.0); MEAN PLT VOLUME 8.2 fl (7.5-11.1); MONO % 3.3 % (3.8-10.2); NEUT % 87.7 % (42.8-82.8); PLATELET COUNT 280 K/MM3 (134-434); RBC 3.51 M/mm3 (3.60-5.2); WHITE BLOOD COUNT 10.4 K/mm3 (4.0-10.0)
[2019-11-23 10:27] VITALS: PULSE 94
[2019-11-23 10:28] LABS: ALBUMIN 2.1 g/dl (3.4-5.0); BILIRUBIN,TOTAL 0.5 mg/dL (0.2-1); BLOOD UREA NITROGEN 58.8 mg/dL (7-18); CALCIUM 8.4 mg/dL (8.5-10.1); CREATININE 4.9 mg/dL (0.55-1.3); MAGNESIUM 1.9 mg/dL (1.8-2.4); PHOSPHOROUS 6.4 mg/dL (2.5-4.9); POTASSIUM 4.9 mmol/L (3.5-5.1); TOT PROT 7.1 g/dl (6.4-8.2)
[2019-11-23] MEDS ORDERED: INSULIN (NOVOLOG) ASPART 100 UNITS/ML 10ML VIAL ONE (11:43)
[2019-11-23] MEDS: BUDESONIDE/FORMETEROL FUMARATE 80/4.5 mcg INHALER IH SCH (11:52)
[2019-11-23 13:45] VITALS: BP 159/79; TEMP 97.6
--- NOTE | 2019-11-23 15:50 | PN ---
Progress Note, Physician Chief Complaint: VICENTE on CKD History of Present Illness: Seen and examined at the bedside awake and alert offers no acute complaints feels better no cp, sob, abd pain, N/V/D making urine - Current Medication List Current Medications: Active Medications Acetaminophen (Tylenol -) 650 mg PO Q6H PRN PRN Reason: FEVER Budesonide/Formoterol Fumarate (Symbicort 80/4.5mcg -) 2 puff IH BID [facility]PL[facility] Last Admin: 11/23/19 11:52 Dose: Not Given Documented by: Docusate Sodium (Colace -) 100 mg PO TID REPLACED BY [facility] Last Admin: 11/23/19 13:58 Dose: 100 mg Documented by: Fentanyl (Sublimaze Injection -) 50 mcg IVPUSH [id number] PRN PRN Reason: PAIN-PACU ORDER X 4 DOSES ONLY Gabapentin (Neurontin -) 600 mg PO TID REPLACED BY [facility] Last Admin: 11/23/19 13:58 Dose: 600 mg Documented by: Guaifenesin (Diabetic Tussin Dm -) 10 ml PO ONCE PRN PRN Reason: COUGH Last Admin: 11/20/19 22:44 Dose: 10 ml Documented by: Ceftriaxone Sodium 1 gm/ (Dextrose) 50 mls @ 100 mls/hr IVPB DAILY [facility]; Protocol Last Admin: 11/23/19 09:36 Dose: 100 mls/hr Documented by: Insulin Aspart (Novolog Vial Sliding Scale -) 1 vial SQ ACHS [facility]PL[facility]; Protocol Last Admin: 11/23/19 11:52 Dose: 10 unit Documented by: Pantoprazole Sodium (Protonix -) 40 mg PO DAILY [facility]PL[facility] BY [facility] Last Admin: 11/23/19 09:37 Dose: 40 mg Documented by: Paroxetine HCl (Paxil -) 10 mg PO DAILY [facility]PL[facility]ED BY [facility] Last Admin: 11/23/19 09:37 Dose: 10 mg Documented by: Sevelamer Carbonate (Renvela -) 1,600 mg PO TIDCM REPLACED BY [facility] Last Admin: 11/23/19 11:53 Dose: 1,600 mg Documented by: Sodium Bicarbonate (Sodium Bicarbonate -) 1,300 mg PO BID REPLACED BY [facility] Last Admin: 11/23/19 09:37 Dose: 1,300 mg Documented by: - Objective Vital Signs: Vital Signs Temperature 97.6 F 11/23/19 13:43 Pulse Rate 94 H 11/23/19 13:43 Respiratory Rate 20 20 13:43 Blood Pressure 159/79 11/23/19 13:43 O2 Sat by Pulse Oximetry (%) 96 11/23/19 09:00 Constitutional: Yes: No Distress Neck: Yes: Supple Cardiovascular: Yes: Regular Rate and Rhythm Respiratory: Yes: Regular Extremities: No: Cyanosis Edema: No Labs: CBC, BMP 11/23/19 09:00 11/23/19 09:00 Assessment/Plan 9 year old woman with history of polycystic kidney disease, CKD stage 3/4, IDDM who presented from home with complaints of vaginal bleeding and found to have anemia and VICENTE with CR of 5. 1. Acute on chronic renal insufficiency 2. Chronic anema 3. Vaginal bleeding/Menses 4. Metabolic acidosis 5. DM Renal function stable Acidosis improved There is no emergent indication for BLACK OXIDE COATING EQUIPMENT TENDER at this time. no evidence of obstruction on CT imaging of the abdomen Continue sodium bicarb 1300mg BID on discharge Continue renvela with meals on discharge Hgb improved s/p prbc, s/p procrit x 2 this admission Stable for discharge Discussed importance of close follow up with patient at length will need to have repeat labs in 1 week encouraged oral hydration Pt to follow up with Dr. Duff in 1-2 weeks Thank you Brian Dahl DO
--- NOTE | 2019-11-23 17:49 | DS ---
Physical Exam: SUBJECTIVE: Patient seen and examined at bedside this morning. No acute events overnight. No further vaginal bleed. OBJECTIVE: Vital Signs Temperature 97.6 F 11/23/19 13:43 Pulse Rate 94 H 11/23/19 13:43 Respiratory Rate 11/23/19 13:43 Blood Pressure 159/79 11/23/19 13:43 O2 Sat by Pulse Oximetry (%) 96 11/23/19 09:00 PHYSICAL EXAM GENERAL: The patient is awake, alert, and fully oriented, in no acute distress. HEAD: Normal with no signs of trauma. EYES: PERRLA EOMI, sclera anicteric, conjunctiva clear. ENT:moist mucous membranes. NECK: supple. LUNGS:Decreased breath sounds bilateral bases HEART: Regular rate and rhythm, S1, S2 ABDOMEN: Soft, nontender, nondistended, normoactive bowel sounds EXTREMITIES: 2+ pulses, warm, well-perfused, no edema. SKIN: Warm, dry, normal turgor LABS Laboratory Results - last 24 hr 11/22/19 11/22/19 11/23/19 19:10 23:00 06:03 WBC 15.2 H RBC 3.22 L Hgb 9.0 L Hct 27.7 L D MCV 86.0 MCH 28.0 MCHC 32.5 RDW 15.3 Plt Count 249 MPV 8.3 Absolute Neuts (auto) 14.3 H Neutrophils % 94.2 H D Neutrophils % (Manual) 94.0 H Band Neutrophils % 0.0 Lymphocytes % 4.1 L D Lymphocytes % (Manual) 3.0 L D Monocytes % 1.3 L D Monocytes % (Manual) 2 L Eosinophils % 0.0 D Eosinophils % (Manual) 0.0 D Basophils % 0.4 Basophils % (Manual) 0.0 Myelocytes % (Man) 1 D Promyelocytes % (Man) 0 Blast Cells % (Manual) 0 Nucleated RBC % 0 Metamyelocytes 0 Hypochromia 0 Polychromasia 1+ Poikilocytosis 1+ Anisocytosis 1+ Microcytosis 1+ Macrocytosis 0 Sodium Potassium Chloride Carbon Dioxide Anion Gap BUN Creatinine Est GFR (CKD-EPI)AfAm Est GFR (CKD-EPI)NonAf POC Glucometer 388 369 Random Glucose Calcium Phosphorus Magnesium Total Bilirubin AST ALT Alkaline Phosphatase Total Protein Albumin 11/23/19 11/23/19 11/23/19 09:00 09:00 11:38 WBC 10.4 H RBC 3.51 L Hgb 10.0 L Hct 30.2 L MCV 86.0 MCH 28.5 MCHC 33.2 RDW 15.0 Plt Count 280 MPV 8.2 Absolute Neuts (auto) 9.2 H Neutrophils % 87.7 H Neutrophils % (Manual) Band Neutrophils % Lymphocytes % 8.7 D Lymphocytes % (Manual) Monocytes % 3.3 L D Monocytes % (Manual) Eosinophils % 0.0 Eosinophils % (Manual) Basophils % 0.3 Basophils % (Manual) Myelocytes % (Man) Promyelocytes % (Man) Blast Cells % (Manual) Nucleated RBC % 0 Metamyelocytes Hypochromia Polychromasia Poikilocytosis Anisocytosis Microcytosis Macrocytosis Sodium 133 L Potassium 4.9 Chloride 106 Carbon Dioxide 16 L Anion Gap 12 BUN 58.8 H Creatinine 4.9 H Est GFR (CKD-EPI)AfAm 12.12 Est GFR (CKD-EPI)NonAf 10.45 POC Glucometer 383 Random Glucose 358 H Calcium 8.4 L Phosphorus 6.4 H Magnesium 1.9 Total Bilirubin 0.5 AST 22 ALT 14 Alkaline Phosphatase 87 Total Protein 7.1 Albumin 2.1 L HOSPITAL COURSE: Date of Admission:11/17/19 Date of Discharge: 11/23/19 Patient is a 39 y/o PMHx of IDDM with neuropathy, Polycystic Kidney Disease with CKD3, Anemia, Asthma, GERD, Nephrolithiasis, Anxiety/Depression presented with Suprapubic pain and Vaginal Bleeding. She was admitted for vaginal bleeding requiring blood transfusion and UTI in the setting of PKD. UCx with Group B Strep 40,000 CFU. She received 4u of prbc and anemia improved. TVUS significant for endometrial thickening +/- debris without discrete mass. Patient was evaluated by AGGREGATE CONVEYOR OPERATOR and underwent D&C. She was discharged with instructions to follow up with AGGREGATE CONVEYOR OPERATOR as outpatient to discuss biopsy results. Minutes to complete discharge: 37 Discharge Summary Problems reviewed: Yes Reason For Visit: VAGINAL BLEEDING, ACUTE RENAL FAILURE, ANEMIA Condition: Stable - Instructions Diet, Activity, Other Instructions: Your visit You were admitted to the hospital because you were anemic. This was likely because of heavy vaginal bleeding. AGGREGATE CONVEYOR OPERATOR evaluated while here in the hospital and you underwent a procedure that improved your bleeding. A sample of the tissue in your uterus was sent for biopsy. It is important that you follow up with the regional sales leader (Dr. Swanson) to discuss the biopsy results. A referral has been provided. You also had a COVID infection a few months ago which affected your lungs. Please follow up with a chemical weigher for further work up of your lung function. Medications Please continue your home medications Follow up Please follow up with your primary care doctor within 1 week. Please follow up with the regional sales leader (Dr. Swanson) in 2 weeks. Please call the office to schedule an appointment. Please follow up with the chemical weigher (Dr. Anderson) in 1-2 weeks. A referral has been provided. Additional info Please call 911 or go to the ED if with any worsening fevers, chills, headache, dizziness, chest pain, shortness of breath, belly pain, vaginal bleeding or any new concerns noted. Referrals: Laxmi Read NP [Primary Care Provider] - Kia Swanson MD [Staff Physician] - 1 Week Zion Huitron MD [Staff Physician] - Jessika Duff MD [Staff Physician] - Disposition: HOME - Home Medications Comprehensive Discharge Medication List: Ambulatory Orders Albuterol 0.083% Nebulizer Sarina [Ventolin 0.083% Nebulizer Soln -] 1 neb NEB Q6H PRN 10/06/17 Budesonide/Formeterol Fumarate [SYMBICORT 80/4.5mcg -] 1 inh PO DAILY 10/06/17 Insulin Glargine,Hum.rec.anlog [Lantus] 50 unit SQ BID 10/06/17 Insulin Lispro [Humalog] 30 unit SQ TID 04/18/18 Esomeprazole Magnesium [Nexium 24Hr] 40 mg PO DAILY 05/28/18 Gabapentin [Neurontin] 600 mg PO TID 10/09/19 Sevelamer Carbonate [Renvela -] 800 mg PO TIDCM #90 tab 10/12/19 Dulaglutide [Trulicity] 1.5 mg SQ Q7D 11/18/19 Losartan Potassium 50 mg PO DAILY 11/18/19 Paroxetine HCl [Paxil -] 10 mg PO DAILY 11/18/19 Docusate Sodium [Colace -] 100 mg PO TID capsule 11/23/19 Sodium Bicarbonate - 1,300 mg PO BID tablet 11/23/19 This patient is new to me today: Yes Date on this admission: 11/23/19 Emergency Visit: Yes ED Registration Date: 11/17/19 Care time: The patient presented to the Emergency Department on the above date and was hospitalized for further evaluation of their emergent condition. Critical Care patient: No - Discharge Referral Referred to [facility] Med P.C.: No ATTENDING PHYSICIAN STATEMENT I saw and evaluated the patient. I reviewed the resident's note and discussed the case with the resident. I agree with the resident's findings and plan as documented. SUBJECTIVE: OBJECTIVE: ASSESSMENT AND PLAN:
--- NOTE | 2019-11-24 16:47 | PATH ---
Surgical Pathology Report Patient Name: JOSÉ SCHULER Med. Rec. #: [id number] /Age/Gender: 1980 (Age: 39) / F Account: [id number] Location: [address] [place] [address]/[facility] Taken: 11/22/2019 Received: 11/23/2019 Reported: 11/24/2019 Physicians: Omar Paul M.D. Specimen(s) Received ENDOCERVICAL CURETTINGS Clinical History Vaginal bleeding, anemia Final Diagnosis ENDOCERVICAL CURETTINGS: INVASIVE SQUAMOUS CELL CARCINOMA, MODERATELY DIFFERENTIATED. Comment: The biopsy material predominantly composed of fragments of squamous cell carcinoma admixed with some blood clot. Immunohistochemical stain p63 performed and interpreted at Health system is positive for the tumor cells, supports the above diagnosis. Positive and negative controls (internal if applicable) show appropriate results. Intradepartmental case reviewed with concordance on diagnosis. This case was discussed with Dr. Swanson on 11/24/2019. Electronically Signed Javier Rodarte M.D. Gross Description Received in formalin labeled "endocervical curettings," is a 6.5 x 6.0 x 0.8 cm aggregate of silver soft tissue fragments admixed with blood clot. The formalin is filtered and the specimen is entirely submitted in 9 cassettes. /11/23/2019 saudi/11/23/2019
--- NOTE | 2019-11-25 09:23 | PN ---
Teaching Attending Note Name of Resident: Zion Jones ATTENDING PHYSICIAN STATEMENT I saw and evaluated the patient. I reviewed the resident's note and discussed the case with the resident. I agree with the resident's findings and plan as documented. SUBJECTIVE: Patient seen and examined at bedside, admitted for vaginal bleeding 2/2 ?contraception use, scheduled for D&C, [employer] service following, VSS. OBJECTIVE: GENERAL: The patient is awake, alert, and fully oriented, in no acute distress. HEENT NC/aT, EOMI, neck supple, dry MM Chest CTAB, no crackles or wheezing, no accessory M use HEART: Regular rate and rhythm, S1, S2 without murmur, rub or gallop. ABDOMEN: Obese, Soft, nontender, nondistended, normoactive bowel sounds, no guarding, no rebound, no hepatosplenomegaly, no masses. EXTREMITIES: 2+ pulses, warm, well-perfused, no edema. NEUROLOGICAL: Cranial nerves II through XII grossly intact. Normal speech, gait not observed. PSYCH: Normal mood, normal affect. SKIN: Warm, dry, normal turgor, no rashes or lesions noted Vital Signs (72 hours) 11/22/19 11/22/19 11/22/19 10:00 15:43 16:00 Temperature 98.6 F 98.0 F Pulse Rate 106 H 90 88 Respiratory 20 16 16 Rate Blood Pressure 118/58 L 119/70 123/74 O2 Sat by Pulse 93 L 97 99 Oximetry (%) 11/22/19 11/22/19 11/22/19 16:15 16:30 16:45 Temperature Pulse Rate 86 86 89 Respiratory 16 16 16 Rate Blood Pressure 126/68 133/72 120/72 O2 Sat by Pulse 99 99 95 Oximetry (%) 11/22/19 11/22/19 11/22/19 17:00 17:15 17:45 Temperature 98.0 F 98.1 F Pulse Rate 88 88 93 H Respiratory 16 16 18 Rate Blood Pressure 130/62 132/64 136/69 O2 Sat by Pulse 95 95 97 Oximetry (%) 11/22/19 11/22/19 11/23/19 21:00 22:00 02:00 Temperature 97.8 F 98 F Pulse Rate 90 92 H Respiratory 18 18 18 Rate Blood Pressure 140/80 135/67 O2 Sat by Pulse 97 Oximetry (%) 11/23/19 11/23/19 11/23/19 06:00 09:00 10:00 Temperature 97.0 F L 97.4 F L Pulse Rate 84 94 H Respiratory 18 18 Rate Blood Pressure 148/77 138/78 O2 Sat by Pulse 96 Oximetry (%) 11/23/19 13:43 Temperature 97.6 F Pulse Rate 94 H Respiratory 20 Rate Blood Pressure 159/79 O2 Sat by Pulse Oximetry (%) Microbiology 11/22/19 06:55 Blood - Peripheral Venous Blood Culture - Preliminary NO GROWTH OBTAINED AFTER 72 HOURS, INCUBATION TO CONTINUE FOR 2 DAYS. 11/22/19 06:45 Blood - Peripheral Venous Blood Culture - Preliminary NO GROWTH OBTAINED AFTER 72 HOURS, INCUBATION TO CONTINUE FOR 2 DAYS. 11/18/19 11:10 Blood - Peripheral Venous Blood Culture - Final NO GROWTH AFTER 5 DAYS INCUBATION 11/18/19 11:10 Blood - Peripheral Venous Blood Culture - Final NO GROWTH AFTER 5 DAYS INCUBATION 11/22/19 10:40 Urine - Urine - Catheterized Urine Culture - Final Normal Urogenital Kim 11/21/19 00:01 Stool Gram Stain - Final 11/21/19 00:01 Stool Clostridioides difficile Antigen - Final 11/21/19 00:01 Stool Clostridioides difficile Toxin Assay - Final 11/21/19 00:01 Stool Salmonella/Shigella Culture - Final NO GROWTH OF SALMONELLA OR SHIGELLA SPECIES OBTAINED 11/21/19 00:01 Stool Campylobacter Culture - Final NO GROWTH OF CAMPYLOBACTER SPECIES OBTAINED 11/21/19 00:01 Stool Yersinia Culture - Final NO GROWTH OF YERSINIA SPECIES OBTAINED 11/21/19 00:01 Stool Vibrio Culture - Final NO GROWTH OF VIBRIO SPECIES OBTAINED 11/21/19 00:01 Stool Escherichia coli 0157 Culture - Final NO GROWTH OF E COLI 0157 OBTAINED 11/17/19 19:08 Urine - Urine Clean Catch Urine Culture - Final Strep Agalactiae Group B Laboratory Tests 11/17/19 11/17/19 11/17/19 19:08 19:08 19:08 WBC 19.7 H RBC 2.55 L Hgb 7.0 L Hct 21.3 L MCV 83.6 MCH 27.5 MCHC 32.9 RDW 15.6 Plt Count 294 MPV 8.3 Absolute Neuts (auto) No Result Required. Neutrophils % No Result Required. Neutrophils % (Manual) 73.2 Band Neutrophils % 0.0 Lymphocytes % No Result Required. Lymphocytes % (Manual) 16.5 Monocytes % Monocytes % (Manual) 7 Eosinophils % Eosinophils % (Manual) 3.1 Basophils % Basophils % (Manual) 0.0 Myelocytes % (Man) 0 Promyelocytes % (Man) 0 Blast Cells % (Manual) 0 Nucleated RBC % 0 Metamyelocytes 0 Hypochromia 0 Platelet Estimate Normal Polychromasia 0 Poikilocytosis 0 Anisocytosis 1+ Microcytosis 1+ Macrocytosis 0 ESR Sodium 135 L Potassium 5.4 H Chloride 110 H Carbon Dioxide 14 L Anion Gap 12 BUN 72.6 H Creatinine 5.0 H Est GFR (CKD-EPI)AfAm 11.83 Est GFR (CKD-EPI)NonAf 10.20 POC Glucometer Random Glucose 178 H Hemoglobin A1c % Lactic Acid Calcium 8.5 Phosphorus Magnesium Iron TIBC Iron Saturation Unsaturated IBC Ferritin Total Bilirubin 0.2 AST 24 ALT 15 Alkaline Phosphatase 98 C-Reactive Protein Total Protein 7.3 Albumin 2.2 L Vitamin B12 Serum Folate TSH Urine Color Yellow Urine Appearance Cloudy Urine pH 6.0 Ur Specific [place] 1.013 Urine Protein 3+ H Urine Glucose (UA) 1+ H Urine Ketones Negative Urine Blood 3+ H Urine Nitrite Negative Urine Bilirubin Negative Urine Urobilinogen 0.2 Ur Leukocyte Esterase 2+ H Urine WBC (Auto) 1048 Urine RBC (Auto) 395 Urine Casts (Auto) 1 U Epithel Cells (Auto) 32 Urine Bacteria (Auto) 919 U Random Total Protein Ur Random Sodium Urine Creatinine Protein/Creatinin Ratio Urine HCG, Qual Negative COVID-19 (JAVON) Blood Type Antibody Screen Crossmatch 11/17/19 11/17/19 11/18/19 19:08 23:25 07:33 WBC RBC Hgb Hct MCV MCH MCHC RDW Plt Count MPV Absolute Neuts (auto) Neutrophils % Neutrophils % (Manual) Band Neutrophils % Lymphocytes % Lymphocytes % (Manual) Monocytes % Monocytes % (Manual) Eosinophils % Eosinophils % (Manual) Basophils % Basophils % (Manual) Myelocytes % (Man) Promyelocytes % (Man) Blast Cells % (Manual) Nucleated RBC % Metamyelocytes Hypochromia Platelet Estimate Polychromasia Poikilocytosis Anisocytosis Microcytosis Macrocytosis ESR Sodium Potassium Chloride Carbon Dioxide Anion Gap BUN Creatinine Est GFR (CKD-EPI)AfAm Est GFR (CKD-EPI)NonAf POC Glucometer 138 Random Glucose Hemoglobin A1c % Lactic Acid Calcium Phosphorus Magnesium Iron TIBC Iron Saturation Unsaturated IBC Ferritin Total Bilirubin AST ALT Alkaline Phosphatase C-Reactive Protein Total Protein Albumin Vitamin B12 Serum Folate TSH Urine Color Urine Appearance Urine pH Ur Specific [place] Urine Protein Urine Glucose (UA) Urine Ketones Urine Blood Urine Nitrite Urine Bilirubin Urine Urobilinogen Ur Leukocyte Esterase Urine WBC (Auto) Urine RBC (Auto) Urine Casts (Auto) U Epithel Cells (Auto) Urine Bacteria (Auto) U Random Total Protein Ur Random Sodium Urine Creatinine Protein/Creatinin Ratio Urine HCG, Qual COVID-19 (JAVON) Not detected Blood Type O POSITIVE Antibody Screen Negative Crossmatch See Detail 11/18/19 11/18/19 11/18/19 11:10 11:10 11:10 WBC 14.9 H RBC 3.18 L Hgb 8.6 L Hct 27.1 L D MCV 85.4 MCH 27.2 MCHC 31.8 L RDW 14.4 Plt Count 290 MPV 8.2 Absolute Neuts (auto) 11.8 H Neutrophils % 79.5 Neutrophils % (Manual) Band Neutrophils % Lymphocytes % 11.6 Lymphocytes % (Manual) Monocytes % 7.3 Monocytes % (Manual) Eosinophils % 1.1 Eosinophils % (Manual) Basophils % 0.5 Basophils % (Manual) Myelocytes % (Man) Promyelocytes % (Man) Blast Cells % (Manual) Nucleated RBC % 0 Metamyelocytes Hypochromia Platelet Estimate Polychromasia Poikilocytosis Anisocytosis Microcytosis Macrocytosis ESR Sodium 136 Potassium 5.0 Chloride 108 H Carbon Dioxide 15 L Anion Gap 14 BUN 72.7 H Creatinine 4.6 H Est GFR (CKD-EPI)AfAm 13.08 Est GFR (CKD-EPI)NonAf 11.28 POC Glucometer Random Glucose 164 H Hemoglobin A1c % 6.6 H Lactic Acid Calcium 8.5 Phosphorus 7.5 H Magnesium 2.0 Iron TIBC Iron Saturation Unsaturated IBC Ferritin Total Bilirubin 0.4 AST 13 L ALT 12 L Alkaline Phosphatase 88 C-Reactive Protein Total Protein 7.3 Albumin 2.3 L Vitamin B12 539 Serum Folate 7 TSH 2.09 Urine Color Urine Appearance Urine pH Ur Specific [place] Urine Protein Urine Glucose (UA) Urine Ketones Urine Blood Urine Nitrite Urine Bilirubin Urine Urobilinogen Ur Leukocyte Esterase Urine WBC (Auto) Urine RBC (Auto) Urine Casts (Auto) U Epithel Cells (Auto) Urine Bacteria (Auto) U Random Total Protein Ur Random Sodium Urine Creatinine Protein/Creatinin Ratio Urine HCG, Qual COVID-19 (JAVON) Blood Type Antibody Screen Crossmatch 11/18/19 11/18/19 11/18/19 11:15 12:31 16:44 WBC RBC Hgb Hct MCV MCH MCHC RDW Plt Count MPV Absolute Neuts (auto) Neutrophils % Neutrophils % (Manual) Band Neutrophils % Lymphocytes % Lymphocytes % (Manual) Monocytes % Monocytes % (Manual) Eosinophils % Eosinophils % (Manual) Basophils % Basophils % (Manual) Myelocytes % (Man) Promyelocytes % (Man) Blast Cells % (Manual) Nucleated RBC % Metamyelocytes Hypochromia Platelet Estimate Polychromasia Poikilocytosis Anisocytosis Microcytosis Macrocytosis ESR Sodium Potassium Chloride Carbon Dioxide Anion Gap BUN Creatinine Est GFR (CKD-EPI)AfAm Est GFR (CKD-EPI)NonAf POC Glucometer 159 183 Random Glucose Hemoglobin A1c % Lactic Acid 1.1 Calcium Phosphorus Magnesium Iron TIBC Iron Saturation Unsaturated IBC Ferritin Total Bilirubin AST ALT Alkaline Phosphatase C-Reactive Protein Total Protein Albumin Vitamin B12 Serum Folate TSH Urine Color Urine Appearance Urine pH Ur Specific [place] Urine Protein Urine Glucose (UA) Urine Ketones Urine Blood Urine Nitrite Urine Bilirubin Urine Urobilinogen Ur Leukocyte Esterase Urine WBC (Auto) Urine RBC (Auto) Urine Casts (Auto) U Epithel Cells (Auto) Urine Bacteria (Auto) U Random Total Protein Ur Random Sodium Urine Creatinine Protein/Creatinin Ratio Urine [employer] COVID-19 (JAVON) Blood Type Antibody Screen Crossmatch 11/18/19 11/19/19 11/19/19 21:01 06:07 07:25 WBC 12.1 H RBC 2.68 L Hgb 7.3 L Hct 22.5 L D MCV 84.0 MCH 27.4 MCHC 32.6 RDW 15.0 Plt Count 257 MPV 8.1 Absolute Neuts (auto) 8.4 H Neutrophils % 69.0 Neutrophils % (Manual) Band Neutrophils % Lymphocytes % 19.3 D Lymphocytes % (Manual) Monocytes % 9.6 Monocytes % (Manual) Eosinophils % 1.5 Eosinophils % (Manual) Basophils % 0.6 Basophils % (Manual) Myelocytes % (Man) Promyelocytes % (Man) Blast Cells % (Manual) Nucleated RBC % 0 Metamyelocytes Hypochromia Platelet Estimate Polychromasia Poikilocytosis Anisocytosis Microcytosis Macrocytosis ESR Sodium Potassium Chloride Carbon Dioxide Anion Gap BUN Creatinine Est GFR (CKD-EPI)AfAm Est GFR (CKD-EPI)NonAf POC Glucometer 191 117 Random Glucose Hemoglobin A1c % Lactic Acid Calcium Phosphorus Magnesium Iron TIBC Iron Saturation Unsaturated IBC Ferritin Total Bilirubin AST ALT Alkaline Phosphatase C-Reactive Protein Total Protein Albumin Vitamin B12 Serum Folate TSH Urine Color Urine Appearance Urine pH Ur Specific [place] Urine Protein Urine Glucose (UA) Urine Ketones Urine Blood Urine Nitrite Urine Bilirubin Urine Urobilinogen Ur Leukocyte Esterase Urine WBC (Auto) Urine RBC (Auto) Urine Casts (Auto) U Epithel Cells (Auto) Urine Bacteria (Auto) U Random Total Protein Ur Random Sodium Urine Creatinine Protein/Creatinin Ratio Urine HCG, Qual COVID-19 (JAVON) Blood Type Antibody Screen Crossmatch 11/19/19 11/19/19 11/19/19 07:25 07:25 11:29 WBC RBC Hgb Hct MCV MCH MCHC RDW Plt Count MPV Absolute Neuts (auto) Neutrophils % Neutrophils % (Manual) Band Neutrophils % Lymphocytes % Lymphocytes % (Manual) Monocytes % Monocytes % (Manual) Eosinophils % Eosinophils % (Manual) Basophils % Basophils % (Manual) Myelocytes % (Man) Promyelocytes % (Man) Blast Cells % (Manual) Nucleated RBC % Metamyelocytes Hypochromia Platelet Estimate Polychromasia Poikilocytosis Anisocytosis Microcytosis Macrocytosis ESR Sodium 137 Potassium 4.8 Chloride 110 H Carbon Dioxide 17 L Anion Gap 10 BUN 63.0 H Creatinine 4.7 H Est GFR (CKD-EPI)AfAm 12.74 Est GFR (CKD-EPI)NonAf 11.00 POC Glucometer 155 Random Glucose 107 H Hemoglobin A1c % Lactic Acid Calcium 8.1 L Phosphorus 8.3 H Magnesium 1.9 Iron 37 L TIBC 128 L Iron Saturation 28 Unsaturated IBC 91 L Ferritin 260.6 Total Bilirubin AST ALT Alkaline Phosphatase C-Reactive Protein Total Protein Albumin Vitamin B12 Serum Folate TSH Urine Color Urine Appearance Urine pH Ur Specific [place] Urine Protein Urine Glucose (UA) Urine Ketones Urine Blood Urine Nitrite Urine Bilirubin Urine Urobilinogen Ur Leukocyte Esterase Urine WBC (Auto) Urine RBC (Auto) Urine Casts (Auto) U Epithel Cells (Auto) Urine Bacteria (Auto) U Random Total Protein Ur Random Sodium Urine Creatinine Protein/Creatinin Ratio Urine HCG, Qual COVID-19 (JAVON) Blood Type Antibody Screen Crossmatch 11/19/19 11/19/19 11/20/19 16:50 21:02 06:08 WBC RBC Hgb Hct MCV MCH MCHC RDW Plt Count MPV Absolute Neuts (auto) Neutrophils % Neutrophils % (Manual) Band Neutrophils % Lymphocytes % Lymphocytes % (Manual) Monocytes % Monocytes % (Manual) Eosinophils % Eosinophils % (Manual) Basophils % Basophils % (Manual) Myelocytes % (Man) Promyelocytes % (Man) Blast Cells % (Manual) Nucleated RBC % Metamyelocytes Hypochromia Platelet Estimate Polychromasia Poikilocytosis Anisocytosis Microcytosis Macrocytosis ESR Sodium Potassium Chloride Carbon Dioxide Anion Gap BUN Creatinine Est GFR (CKD-EPI)AfAm Est GFR (CKD-EPI)NonAf POC Glucometer 150 219 143 Random Glucose Hemoglobin A1c % Lactic Acid Calcium Phosphorus Magnesium Iron TIBC Iron Saturation Unsaturated IBC Ferritin Total Bilirubin AST ALT Alkaline Phosphatase C-Reactive Protein Total Protein Albumin Vitamin B12 Serum Folate TSH Urine Color Urine Appearance Urine pH Ur Specific [place] Urine Protein Urine Glucose (UA) Urine Ketones Urine Blood Urine Nitrite Urine Bilirubin Urine Urobilinogen Ur Leukocyte Esterase Urine WBC (Auto) Urine RBC (Auto) Urine Casts (Auto) U Epithel Cells (Auto) Urine Bacteria (Auto) U Random Total Protein Ur Random Sodium Urine Creatinine Protein/Creatinin Ratio Urine HCG, Qual COVID-19 (JAVON) Blood Type Antibody Screen Crossmatch 11/20/19 11/20/19 11/20/19 06:55 06:55 06:55 WBC RBC Hgb Hct MCV MCH MCHC RDW Plt Count MPV Absolute Neuts (auto) Neutrophils % Neutrophils % (Manual) Band Neutrophils % Lymphocytes % Lymphocytes % (Manual) Monocytes % Monocytes % (Manual) Eosinophils % Eosinophils % (Manual) Basophils % Basophils % (Manual) Myelocytes % (Man) Promyelocytes % (Man) Blast Cells % (Manual) Nucleated RBC % Metamyelocytes Hypochromia Platelet Estimate Polychromasia Poikilocytosis Anisocytosis Microcytosis Macrocytosis ESR 115 H Sodium 137 Potassium 4.6 Chloride 109 H Carbon Dioxide 17 L Anion Gap 11 BUN 62.9 H Creatinine 5.0 H Est GFR (CKD-EPI)AfAm 11.83 Est GFR (CKD-EPI)NonAf 10.20 POC Glucometer Random Glucose 130 H Hemoglobin A1c % Lactic Acid Calcium 8.2 L Phosphorus Magnesium Iron TIBC Iron Saturation Unsaturated IBC Ferritin Total Bilirubin AST ALT Alkaline Phosphatase C-Reactive Protein 7.2 H Total Protein Albumin Vitamin B12 Serum Folate TSH Urine Color Urine Appearance Urine pH Ur Specific [place] Urine Protein Urine Glucose (UA) Urine Ketones Urine Blood Urine Nitrite Urine Bilirubin Urine Urobilinogen Ur Leukocyte Esterase Urine WBC (Auto) Urine RBC (Auto) Urine Casts (Auto) U Epithel Cells (Auto) Urine Bacteria (Auto) U Random Total Protein Ur Random Sodium Urine Creatinine Protein/Creatinin Ratio Urine HCG, Qual COVID-19 (JAVON) Blood Type Antibody Screen Crossmatch 11/20/19 11/20/19 11/20/19 11:15 11:41 17:30 WBC RBC Hgb Hct MCV MCH MCHC RDW Plt Count MPV Absolute Neuts (auto) Neutrophils % Neutrophils % (Manual) Band Neutrophils % Lymphocytes % Lymphocytes % (Manual) Monocytes % Monocytes % (Manual) Eosinophils % Eosinophils % (Manual) Basophils % Basophils % (Manual) Myelocytes % (Man) Promyelocytes % (Man) Blast Cells % (Manual) Nucleated RBC % Metamyelocytes Hypochromia Platelet Estimate Polychromasia Poikilocytosis Anisocytosis Microcytosis Macrocytosis ESR Sodium Potassium Chloride Carbon Dioxide Anion Gap BUN Creatinine Est GFR (CKD-EPI)AfAm Est GFR (CKD-EPI)NonAf POC Glucometer 170 171 Random Glucose Hemoglobin A1c % Lactic Acid Calcium Phosphorus Magnesium Iron TIBC Iron Saturation Unsaturated IBC Ferritin Total Bilirubin AST ALT Alkaline Phosphatase C-Reactive Protein Total Protein Albumin Vitamin B12 Serum Folate TSH Urine Color Urine Appearance Urine pH Ur Specific [place] Urine Protein Urine Glucose (UA) Urine Ketones Urine Blood Urine Nitrite Urine Bilirubin Urine Urobilinogen Ur Leukocyte Esterase Urine WBC (Auto) Urine RBC (Auto) Urine Casts (Auto) U Epithel Cells (Auto) Urine Bacteria (Auto) U Random Total Protein 427.7 H Ur Random Sodium 45 Urine Creatinine 36.0 Protein/Creatinin Ratio 11.9 Urine HCG, Qual COVID-19 (JAVON) Blood Type Antibody Screen Crossmatch 11/20/19 11/21/19 11/21/19 21:44 05:31 07:42 WBC 13.1 H RBC 2.67 L Hgb 7.2 L Hct 22.5 L MCV 84.1 MCH 26.8 MCHC 31.9 L RDW 15.1 Plt Count 206 MPV 8.2 Absolute Neuts (auto) 9.8 H Neutrophils % 75.0 Neutrophils % (Manual) Band Neutrophils % Lymphocytes % 15.7 Lymphocytes % (Manual) Monocytes % 8.1 Monocytes % (Manual) Eosinophils % 0.8 Eosinophils % (Manual) Basophils % 0.4 Basophils % (Manual) Myelocytes % (Man) Promyelocytes % (Man) Blast Cells % (Manual) Nucleated RBC % 0 Metamyelocytes Hypochromia Platelet Estimate Polychromasia Poikilocytosis Anisocytosis Microcytosis Macrocytosis ESR Sodium Potassium Chloride Carbon Dioxide Anion Gap BUN Creatinine Est GFR (CKD-EPI)AfAm Est GFR (CKD-EPI)NonAf POC Glucometer 195 131 Random Glucose Hemoglobin A1c % Lactic Acid Calcium Phosphorus Magnesium Iron TIBC Iron Saturation Unsaturated IBC Ferritin Total Bilirubin AST ALT Alkaline Phosphatase C-Reactive Protein Total Protein Albumin Vitamin B12 Serum Folate TSH Urine Color Urine Appearance Urine pH Ur Specific [place] Urine Protein Urine Glucose (UA) Urine Ketones Urine Blood Urine Nitrite Urine Bilirubin Urine Urobilinogen Ur Leukocyte Esterase Urine WBC (Auto) Urine RBC (Auto) Urine Casts (Auto) U Epithel Cells (Auto) Urine Bacteria (Auto) U Random Total Protein Ur Random Sodium Urine Creatinine Protein/Creatinin Ratio Urine HCG, Qual COVID-19 (JAVON) Blood Type Antibody Screen Crossmatch 11/21/19 11/21/19 11/21/19 07:42 11:41 16:59 WBC RBC Hgb Hct MCV MCH MCHC RDW Plt Count MPV Absolute Neuts (auto) Neutrophils % Neutrophils % (Manual) Band Neutrophils % Lymphocytes % Lymphocytes % (Manual) Monocytes % Monocytes % (Manual) Eosinophils % Eosinophils % (Manual) Basophils % Basophils % (Manual) Myelocytes % (Man) Promyelocytes % (Man) Blast Cells % (Manual) Nucleated RBC % Metamyelocytes Hypochromia Platelet Estimate Polychromasia Poikilocytosis Anisocytosis Microcytosis Macrocytosis ESR Sodium 139 Potassium 4.4 Chloride 110 H Carbon Dioxide 16 L Anion Gap 13 BUN 59.6 H Creatinine 5.0 H Est GFR (CKD-EPI)AfAm 11.83 Est GFR (CKD-EPI)NonAf 10.20 POC Glucometer 207 230 Random Glucose 144 H Hemoglobin A1c % Lactic Acid Calcium 8.4 L Phosphorus Magnesium Iron TIBC Iron Saturation Unsaturated IBC Ferritin Total Bilirubin AST ALT Alkaline Phosphatase C-Reactive Protein Total Protein Albumin Vitamin B12 Serum Folate TSH Urine Color Urine Appearance Urine pH Ur Specific [place] Urine Protein Urine Glucose (UA) Urine Ketones Urine Blood Urine Nitrite Urine Bilirubin Urine Urobilinogen Ur Leukocyte Esterase Urine WBC (Auto) Urine RBC (Auto) Urine Casts (Auto) U Epithel Cells (Auto) Urine Bacteria (Auto) U Random Total Protein Ur Random Sodium Urine Creatinine Protein/Creatinin Ratio Urine HCG, Qual COVID-19 (JAVON) Blood Type Antibody Screen Crossmatch 11/21/19 11/22/19 11/22/19 21:43 05:50 06:45 WBC 11.8 H RBC 2.54 L Hgb 6.9 L* Hct 21.5 L MCV 84.7 MCH 27.4 MCHC 32.3 RDW 15.1 Plt Count 252 D MPV 8.8 Absolute Neuts (auto) 9.1 H Neutrophils % 76.9 Neutrophils % (Manual) Band Neutrophils % Lymphocytes % 14.0 Lymphocytes % (Manual) Monocytes % 7.6 Monocytes % (Manual) Eosinophils % 0.8 Eosinophils % (Manual) Basophils % 0.7 Basophils % (Manual) Myelocytes % (Man) Promyelocytes % (Man) Blast Cells % (Manual) Nucleated RBC % 0 Metamyelocytes Hypochromia Platelet Estimate Polychromasia Poikilocytosis Anisocytosis Microcytosis Macrocytosis ESR Sodium Potassium Chloride Carbon Dioxide Anion Gap BUN Creatinine Est GFR (CKD-EPI)AfAm Est GFR (CKD-EPI)NonAf POC Glucometer 226 152 Random Glucose Hemoglobin A1c % Lactic Acid Calcium Phosphorus Magnesium Iron TIBC Iron Saturation Unsaturated IBC Ferritin Total Bilirubin AST ALT Alkaline Phosphatase C-Reactive Protein Total Protein Albumin Vitamin B12 Serum Folate TSH Urine Color Urine Appearance Urine pH Ur Specific [place] Urine Protein Urine Glucose (UA) Urine Ketones Urine Blood Urine Nitrite Urine Bilirubin Urine Urobilinogen Ur Leukocyte Esterase Urine WBC (Auto) Urine RBC (Auto) Urine Casts (Auto) U Epithel Cells (Auto) Urine Bacteria (Auto) U Random Total Protein Ur Random Sodium Urine Creatinine Protein/Creatinin Ratio Urine HCG, Qual COVID-19 (JAVON) Blood Type Antibody Screen Crossmatch 11/22/19 11/22/19 11/22/19 06:45 08:25 10:47 WBC RBC Hgb Hct MCV MCH MCHC RDW Plt Count MPV Absolute Neuts (auto) Neutrophils % Neutrophils % (Manual) Band Neutrophils % Lymphocytes % Lymphocytes % (Manual) Monocytes % Monocytes % (Manual) Eosinophils % Eosinophils % (Manual) Basophils % Basophils % (Manual) Myelocytes % (Man) Promyelocytes % (Man) Blast Cells % (Manual) Nucleated RBC % Metamyelocytes Hypochromia Platelet Estimate Polychromasia Poikilocytosis Anisocytosis Microcytosis Macrocytosis ESR Sodium 138 Potassium 4.6 Chloride 111 H Carbon Dioxide 17 L Anion Gap 11 BUN 55.6 H Creatinine 5.1 H Est GFR (CKD-EPI)AfAm 11.54 Est GFR (CKD-EPI)NonAf 9.96 POC Glucometer 169 Random Glucose 143 H Hemoglobin A1c % Lactic Acid Calcium 8.0 L Phosphorus 6.4 H Magnesium 1.8 Iron TIBC Iron Saturation Unsaturated IBC Ferritin Total Bilirubin AST ALT Alkaline Phosphatase C-Reactive Protein Total Protein Albumin Vitamin B12 Serum Folate TSH Urine Color Urine Appearance Urine pH Ur Specific [place] Urine Protein Urine Glucose (UA) Urine Ketones Urine Blood Urine Nitrite Urine Bilirubin Urine Urobilinogen Ur Leukocyte Esterase Urine WBC (Auto) Urine RBC (Auto) Urine Casts (Auto) U Epithel Cells (Auto) Urine Bacteria (Auto) U Random Total Protein Ur Random Sodium Urine Creatinine Protein/Creatinin Ratio Urine HCG, Qual COVID-19 (JAVON) Blood Type O POSITIVE Antibody Screen Negative Crossmatch See Detail 11/22/19 11/22/19 11/23/19 19:10 23:00 06:03 WBC 15.2 H RBC 3.22 L Hgb 9.0 L Hct 27.7 L D MCV 86.0 MCH 28.0 MCHC 32.5 RDW 15.3 Plt Count 249 MPV 8.3 Absolute Neuts (auto) 14.3 H Neutrophils % 94.2 H D Neutrophils % (Manual) 94.0 H Band Neutrophils % 0.0 Lymphocytes % 4.1 L D Lymphocytes % (Manual) 3.0 L D Monocytes % 1.3 L D Monocytes % (Manual) 2 L Eosinophils % 0.0 D Eosinophils % (Manual) 0.0 D Basophils % 0.4 Basophils % (Manual) 0.0 Myelocytes % (Man) 1 D Promyelocytes % (Man) 0 Blast Cells % (Manual) 0 Nucleated RBC % 0 Metamyelocytes 0 Hypochromia 0 Platelet Estimate Polychromasia 1+ Poikilocytosis 1+ Anisocytosis 1+ Microcytosis 1+ Macrocytosis 0 ESR Sodium Potassium Chloride Carbon Dioxide Anion Gap BUN Creatinine Est GFR (CKD-EPI)AfAm Est GFR (CKD-EPI)NonAf POC Glucometer 388 369 Random Glucose Hemoglobin A1c % Lactic Acid Calcium Phosphorus Magnesium Iron TIBC Iron Saturation Unsaturated IBC Ferritin Total Bilirubin AST ALT Alkaline Phosphatase C-Reactive Protein Total Protein Albumin Vitamin B12 Serum Folate TSH Urine Color Urine Appearance Urine pH Ur Specific [place] Urine Protein Urine Glucose (UA) Urine Ketones Urine Blood Urine Nitrite Urine Bilirubin Urine Urobilinogen Ur Leukocyte Esterase Urine WBC (Auto) Urine RBC (Auto) Urine Casts (Auto) U Epithel Cells (Auto) Urine Bacteria (Auto) U Random Total Protein Ur Random Sodium Urine Creatinine Protein/Creatinin Ratio Urine HCG, Qual COVID-19 (JAVON) Blood Type Antibody Screen Crossmatch 11/23/19 11/23/19 11/23/19 09:00 09:00 11:38 WBC 10.4 H RBC 3.51 L Hgb 10.0 L Hct 30.2 L MCV 86.0 MCH 28.5 MCHC 33.2 RDW 15.0 Plt Count 280 MPV 8.2 Absolute Neuts (auto) 9.2 H Neutrophils % 87.7 H Neutrophils % (Manual) Band Neutrophils % Lymphocytes % 8.7 D Lymphocytes % (Manual) Monocytes % 3.3 L D Monocytes % (Manual) Eosinophils % 0.0 Eosinophils % (Manual) Basophils % 0.3 Basophils % (Manual) Myelocytes % (Man) Promyelocytes % (Man) Blast Cells % (Manual) Nucleated RBC % 0 Metamyelocytes Hypochromia Platelet Estimate Polychromasia Poikilocytosis Anisocytosis Microcytosis Macrocytosis ESR Sodium 133 L Potassium 4.9 Chloride 106 Carbon Dioxide 16 L Anion Gap 12 BUN 58.8 H Creatinine 4.9 H Est GFR (CKD-EPI)AfAm 12.12 Est GFR (CKD-EPI)NonAf 10.45 POC Glucometer 383 Random Glucose 358 H Hemoglobin A1c % Lactic Acid Calcium 8.4 L Phosphorus 6.4 H Magnesium 1.9 Iron TIBC Iron Saturation Unsaturated IBC Ferritin Total Bilirubin 0.5 AST 22 ALT 14 Alkaline Phosphatase 87 C-Reactive Protein Total Protein 7.1 Albumin 2.1 L Vitamin B12 Serum Folate TSH Urine Color Urine Appearance Urine pH Ur Specific [place] Urine Protein Urine Glucose (UA) Urine Ketones Urine Blood Urine Nitrite Urine Bilirubin Urine Urobilinogen Ur Leukocyte Esterase Urine WBC (Auto) Urine RBC (Auto) Urine Casts (Auto) U Epithel Cells (Auto) Urine Bacteria (Auto) U Random Total Protein Ur Random Sodium Urine Creatinine Protein/Creatinin Ratio Urine HCG, Qual COVID-19 (JAVON) Blood Type Antibody Screen Crossmatch Home Medications Medication Instructions Recorded Albuterol 0.083% Nebulizer Sarina 1 neb NEB Q6H PRN 10/06/17 [Ventolin 0.083% Nebulizer Soln -] Budesonide/Formeterol Fumarate 1 inh PO DAILY 10/06/17 [SYMBICORT 80/4.5mcg -] Insulin Glargine,Hum.rec.anlog 50 unit SQ BID 10/06/17 [Lantus] Insulin Lispro [Humalog] 30 unit SQ TID 04/18/18 Esomeprazole Magnesium [Nexium 40 mg PO DAILY 05/28/18 24Hr] Gabapentin [Neurontin] 600 mg PO TID 10/09/19 Sevelamer Carbonate [Renvela -] 800 mg PO TIDCM #90 tab 10/12/19 Dulaglutide [Trulicity] 1.5 mg SQ Q7D 11/18/19 Losartan Potassium 50 mg PO DAILY 11/18/19 Paroxetine HCl [Paxil -] 10 mg PO DAILY 11/18/19 Docusate Sodium [Colace -] 100 mg PO TID capsule 11/23/19 Sodium Bicarbonate - 1,300 mg PO BID tablet 11/23/19 ASSESSMENT AND PLAN: 39 F Vaginal bleeding scheduled for D&C HTN HLD Depression Anxiety s/p COVID pneumonitis Neuropathy Asthma Plan: Will need D&C for vaginal bleed, hold AC, SCD for DVT ppx, abx per [employer] monique-operatively Incentive spirometry, Albuterol 2 puffs prior to procedure COnt. BP meds, hold DARBY/ARB morning of procedure to decrease risk for VICENTE BGM keep <200 [employer] following
--- NOTE | 2019-11-25 09:26 | PN ---
Teaching Attending Note Name of Resident: Yahaira Wren ATTENDING PHYSICIAN STATEMENT I saw and evaluated the patient. I reviewed the resident's note and discussed the case with the resident. I agree with the resident's findings and plan as documented. SUBJECTIVE: Patient seen and examined at bedside, s/p D&C tolerated procedure well, ambulating around unit. OBJECTIVE: GENERAL: The patient is awake, alert, and fully oriented, in no acute distress. HEENT NC/aT, EOMI, neck supple, dry MM Chest CTAB, no crackles or wheezing, no accessory M use HEART: Regular rate and rhythm, S1, S2 without murmur, rub or gallop. ABDOMEN: Obese, Soft, nontender, nondistended, normoactive bowel sounds, no guarding, no rebound, no hepatosplenomegaly, no masses. EXTREMITIES: 2+ pulses, warm, well-perfused, no edema. NEUROLOGICAL: Cranial nerves II through XII grossly intact. Normal speech, gait not observed. PSYCH: Normal mood, normal affect. SKIN: Warm, dry, normal turgor, no rashes or lesions noted Vital Signs (72 hours) 11/22/19 11/22/19 11/22/19 10:00 15:43 16:00 Temperature 98.6 F 98.0 F Pulse Rate 106 H 90 88 Respiratory 20 16 16 Rate Blood Pressure 118/58 L 119/70 123/74 O2 Sat by Pulse 93 L 97 99 Oximetry (%) 11/22/19 11/22/19 11/22/19 16:15 16:30 16:45 Temperature Pulse Rate 86 86 89 Respiratory 16 16 16 Rate Blood Pressure 126/68 133/72 120/72 O2 Sat by Pulse 99 99 95 Oximetry (%) 11/22/19 11/22/19 11/22/19 17:00 17:15 17:45 Temperature 98.0 F 98.1 F Pulse Rate 88 88 93 H Respiratory 16 16 18 Rate Blood Pressure 130/62 132/64 136/69 O2 Sat by Pulse 95 95 97 Oximetry (%) 11/22/19 11/22/19 11/23/19 21:00 22:00 02:00 Temperature 97.8 F 98 F Pulse Rate 90 92 H Respiratory 18 18 18 Rate Blood Pressure 140/80 135/67 O2 Sat by Pulse 97 Oximetry (%) 11/23/19 11/23/1911/22/20 06:00 09:00 10:00 Temperature 97.0 F L 97.4 F L Pulse Rate 84 94 H Respiratory 18 18 Rate Blood Pressure 148/77 138/78 O2 Sat by Pulse 96 Oximetry (%) 11/23/19 13:43 Temperature 97.6 F Pulse Rate 94 H Respiratory 20 Rate Blood Pressure 159/79 O2 Sat by Pulse Oximetry (%) Microbiology 11/22/19 06:55 Blood - Peripheral Venous Blood Culture - Preliminary NO GROWTH OBTAINED AFTER 72 HOURS, INCUBATION TO CONTINUE FOR 2 DAYS. 11/22/19 06:45 Blood - Peripheral Venous Blood Culture - Preliminary NO GROWTH OBTAINED AFTER 72 HOURS, INCUBATION TO CONTINUE FOR 2 DAYS. 11/18/19 11:10 Blood - Peripheral Venous Blood Culture - Final NO GROWTH AFTER 5 DAYS INCUBATION 11/18/19 11:10 Blood - Peripheral Venous Blood Culture - Final NO GROWTH AFTER 5 DAYS INCUBATION 11/22/19 10:40 Urine - Urine - Catheterized Urine Culture - Final Normal Urogenital Kim 11/21/19 00:01 Stool Gram Stain - Final 11/21/19 00:01 Stool Clostridioides difficile Antigen - Final 11/21/19 00:01 Stool Clostridioides difficile Toxin Assay - Final 11/21/19 00:01 Stool Salmonella/Shigella Culture - Final NO GROWTH OF SALMONELLA OR SHIGELLA SPECIES OBTAINED 11/21/19 00:01 Stool Campylobacter Culture - Final NO GROWTH OF CAMPYLOBACTER SPECIES OBTAINED 11/21/19 00:01 Stool Yersinia Culture - Final NO GROWTH OF YERSINIA SPECIES OBTAINED 11/21/19 00:01 Stool Vibrio Culture - Final NO GROWTH OF VIBRIO SPECIES OBTAINED 11/21/19 00:01 Stool Escherichia coli 0157 Culture - Final NO GROWTH OF E COLI 0157 OBTAINED 11/17/19 19:08 Urine - Urine Clean Catch Urine Culture - Final Strep Agalactiae Group B Laboratory Tests 11/17/19 11/17/19 11/17/19 19:08 19:08 19:08 WBC 19.7 H RBC 2.55 L Hgb 7.0 L Hct 21.3 L MCV 83.6 MCH 27.5 MCHC 32.9 RDW 15.6 Plt Count 294 MPV 8.3 Absolute Neuts (auto) No Result Required. Neutrophils % No Result Required. Neutrophils % (Manual) 73.2 Band Neutrophils % 0.0 Lymphocytes % No Result Required. Lymphocytes % (Manual) 16.5 Monocytes % Monocytes % (Manual) 7 Eosinophils % Eosinophils % (Manual) 3.1 Basophils % Basophils % (Manual) 0.0 Myelocytes % (Man) 0 Promyelocytes % (Man) 0 Blast Cells % (Manual) 0 Nucleated RBC % 0 Metamyelocytes 0 Hypochromia 0 Platelet Estimate Normal Polychromasia 0 Poikilocytosis 0 Anisocytosis 1+ Microcytosis 1+ Macrocytosis 0 ESR Sodium 135 L Potassium 5.4 H Chloride 110 H Carbon Dioxide 14 L Anion Gap 12 BUN 72.6 H Creatinine 5.0 H Est GFR (CKD-EPI)AfAm 11.83 Est GFR (CKD-EPI)NonAf 10.20 POC Glucometer Random Glucose 178 H Hemoglobin A1c % Lactic Acid Calcium 8.5 Phosphorus Magnesium Iron TIBC Iron Saturation Unsaturated IBC Ferritin Total Bilirubin 0.2 AST 24 ALT 15 Alkaline Phosphatase 98 C-Reactive Protein Total Protein 7.3 Albumin 2.2 L Vitamin B12 Serum Folate TSH Urine Color Yellow Urine Appearance Cloudy Urine pH 6.0 Ur Specific [place] 1.013 Urine Protein 3+ H Urine Glucose (UA) 1+ H Urine Ketones Negative Urine Blood 3+ H Urine Nitrite Negative Urine Bilirubin Negative Urine Urobilinogen 0.2 Ur Leukocyte Esterase 2+ H Urine WBC (Auto) 1048 Urine RBC (Auto) 395 Urine Casts (Auto) 1 U Epithel Cells (Auto) 32 Urine Bacteria (Auto) 919 U Random Total Protein Ur Random Sodium Urine Creatinine Protein/Creatinin Ratio Urine HCG, Qual Negative COVID-19 (JAVON) Blood Type Antibody Screen Crossmatch 11/17/19 11/17/19 11/18/19 19:08 23:25 07:33 WBC RBC Hgb Hct MCV MCH MCHC RDW Plt Count MPV Absolute Neuts (auto) Neutrophils % Neutrophils % (Manual) Band Neutrophils % Lymphocytes % Lymphocytes % (Manual) Monocytes % Monocytes % (Manual) Eosinophils % Eosinophils % (Manual) Basophils % Basophils % (Manual) Myelocytes % (Man) Promyelocytes % (Man) Blast Cells % (Manual) Nucleated RBC % Metamyelocytes Hypochromia Platelet Estimate Polychromasia Poikilocytosis Anisocytosis Microcytosis Macrocytosis ESR Sodium Potassium Chloride Carbon Dioxide Anion Gap BUN Creatinine Est GFR (CKD-EPI)AfAm Est GFR (CKD-EPI)NonAf POC Glucometer 138 Random Glucose Hemoglobin A1c % Lactic Acid Calcium Phosphorus Magnesium Iron TIBC Iron Saturation Unsaturated IBC Ferritin Total Bilirubin AST ALT Alkaline Phosphatase C-Reactive Protein Total Protein Albumin Vitamin B12 Serum Folate TSH Urine Color Urine Appearance Urine pH Ur Specific [place] Urine Protein Urine Glucose (UA) Urine Ketones Urine Blood Urine Nitrite Urine Bilirubin Urine Urobilinogen Ur Leukocyte Esterase Urine WBC (Auto) Urine RBC (Auto) Urine Casts (Auto) U Epithel Cells (Auto) Urine Bacteria (Auto) U Random Total Protein Ur Random Sodium Urine Creatinine Protein/Creatinin Ratio Urine HCG, Qual COVID-19 (JAVON) Not detected Blood Type O POSITIVE Antibody Screen Negative Crossmatch See Detail 11/18/19 11/18/19 11/18/19 11:10 11:10 11:10 WBC 14.9 H RBC 3.18 L Hgb 8.6 L Hct 27.1 L D MCV 85.4 MCH 27.2 MCHC 31.8 L RDW 14.4 Plt Count 290 MPV 8.2 Absolute Neuts (auto) 11.8 H Neutrophils % 79.5 Neutrophils % (Manual) Band Neutrophils % Lymphocytes % 11.6 Lymphocytes % (Manual) Monocytes % 7.3 Monocytes % (Manual) Eosinophils % 1.1 Eosinophils % (Manual) Basophils % 0.5 Basophils % (Manual) Myelocytes % (Man) Promyelocytes % (Man) Blast Cells % (Manual) Nucleated RBC % 0 Metamyelocytes Hypochromia Platelet Estimate Polychromasia Poikilocytosis Anisocytosis Microcytosis Macrocytosis ESR Sodium 136 Potassium 5.0 Chloride 108 H Carbon Dioxide 15 L Anion Gap 14 BUN 72.7 H Creatinine 4.6 H Est GFR (CKD-EPI)AfAm 13.08 Est GFR (CKD-EPI)NonAf 11.28 POC Glucometer Random Glucose 164 H Hemoglobin A1c % 6.6 H Lactic Acid Calcium 8.5 Phosphorus 7.5 H Magnesium 2.0 Iron TIBC Iron Saturation Unsaturated IBC Ferritin Total Bilirubin 0.4 AST 13 L ALT 12 L Alkaline Phosphatase 88 C-Reactive Protein Total Protein 7.3 Albumin 2.3 L Vitamin B12 539 Serum Folate 7 TSH 2.09 Urine Color Urine Appearance Urine pH Ur Specific [place] Urine Protein Urine Glucose (UA) Urine Ketones Urine Blood Urine Nitrite Urine Bilirubin Urine Urobilinogen Ur Leukocyte Esterase Urine WBC (Auto) Urine RBC (Auto) Urine Casts (Auto) U Epithel Cells (Auto) Urine Bacteria (Auto) U Random Total Protein Ur Random Sodium Urine Creatinine Protein/Creatinin Ratio Urine HCG, Qual COVID-19 (JAVON) Blood Type Antibody Screen Crossmatch 11/18/19 11/18/19 11/18/19 11:15 12:31 16:44 WBC RBC Hgb Hct MCV MCH MCHC RDW Plt Count MPV Absolute Neuts (auto) Neutrophils % Neutrophils % (Manual) Band Neutrophils % Lymphocytes % Lymphocytes % (Manual) Monocytes % Monocytes % (Manual) Eosinophils % Eosinophils % (Manual) Basophils % Basophils % (Manual) Myelocytes % (Man) Promyelocytes % (Man) Blast Cells % (Manual) Nucleated RBC % Metamyelocytes Hypochromia Platelet Estimate Polychromasia Poikilocytosis Anisocytosis Microcytosis Macrocytosis ESR Sodium Potassium Chloride Carbon Dioxide Anion Gap BUN Creatinine Est GFR (CKD-EPI)AfAm Est GFR (CKD-EPI)NonAf POC Glucometer 159 183 Random Glucose Hemoglobin A1c % Lactic Acid 1.1 Calcium Phosphorus Magnesium Iron TIBC Iron Saturation Unsaturated IBC Ferritin Total Bilirubin AST ALT Alkaline Phosphatase C-Reactive Protein Total Protein Albumin Vitamin B12 Serum Folate TSH Urine Color Urine Appearance Urine pH Ur Specific [place] Urine Protein Urine Glucose (UA) Urine Ketones Urine Blood Urine Nitrite Urine Bilirubin Urine Urobilinogen Ur Leukocyte Esterase Urine WBC (Auto) Urine RBC (Auto) Urine Casts (Auto) U Epithel Cells (Auto) Urine Bacteria (Auto) U Random Total Protein Ur Random Sodium Urine Creatinine Protein/Creatinin Ratio Urine [employer] COVID-19 (JAVON) Blood Type Antibody Screen Crossmatch 11/18/19 11/19/19 11/19/19 21:01 06:07 07:25 WBC 12.1 H RBC 2.68 L Hgb 7.3 L Hct 22.5 L D MCV 84.0 MCH 27.4 MCHC 32.6 RDW 15.0 Plt Count 257 MPV 8.1 Absolute Neuts (auto) 8.4 H Neutrophils % 69.0 Neutrophils % (Manual) Band Neutrophils % Lymphocytes % 19.3 D Lymphocytes % (Manual) Monocytes % 9.6 Monocytes % (Manual) Eosinophils % 1.5 Eosinophils % (Manual) Basophils % 0.6 Basophils % (Manual) Myelocytes % (Man) Promyelocytes % (Man) Blast Cells % (Manual) Nucleated RBC % 0 Metamyelocytes Hypochromia Platelet Estimate Polychromasia Poikilocytosis Anisocytosis Microcytosis Macrocytosis ESR Sodium Potassium Chloride Carbon Dioxide Anion Gap BUN Creatinine Est GFR (CKD-EPI)AfAm Est GFR (CKD-EPI)NonAf POC Glucometer 191 117 Random Glucose Hemoglobin A1c % Lactic Acid Calcium Phosphorus Magnesium Iron TIBC Iron Saturation Unsaturated IBC Ferritin Total Bilirubin AST ALT Alkaline Phosphatase C-Reactive Protein Total Protein Albumin Vitamin B12 Serum Folate TSH Urine Color Urine Appearance Urine pH Ur Specific [place] Urine Protein Urine Glucose (UA) Urine Ketones Urine Blood Urine Nitrite Urine Bilirubin Urine Urobilinogen Ur Leukocyte Esterase Urine WBC (Auto) Urine RBC (Auto) Urine Casts (Auto) U Epithel Cells (Auto) Urine Bacteria (Auto) U Random Total Protein Ur Random Sodium Urine Creatinine Protein/Creatinin Ratio Urine HCG, Qual COVID-19 (JAVON) Blood Type Antibody Screen Crossmatch 11/19/19 11/19/19 11/19/19 07:25 07:25 11:29 WBC RBC Hgb Hct MCV MCH MCHC RDW Plt Count MPV Absolute Neuts (auto) Neutrophils % Neutrophils % (Manual) Band Neutrophils % Lymphocytes % Lymphocytes % (Manual) Monocytes % Monocytes % (Manual) Eosinophils % Eosinophils % (Manual) Basophils % Basophils % (Manual) Myelocytes % (Man) Promyelocytes % (Man) Blast Cells % (Manual) Nucleated RBC % Metamyelocytes Hypochromia Platelet Estimate Polychromasia Poikilocytosis Anisocytosis Microcytosis Macrocytosis ESR Sodium 137 Potassium 4.8 Chloride 110 H Carbon Dioxide 17 L Anion Gap 10 BUN 63.0 H Creatinine 4.7 H Est GFR (CKD-EPI)AfAm 12.74 Est GFR (CKD-EPI)NonAf 11.00 POC Glucometer 155 Random Glucose 107 H Hemoglobin A1c % Lactic Acid Calcium 8.1 L Phosphorus 8.3 H Magnesium 1.9 Iron 37 L TIBC 128 L Iron Saturation 28 Unsaturated IBC 91 L Ferritin 260.6 Total Bilirubin AST ALT Alkaline Phosphatase C-Reactive Protein Total Protein Albumin Vitamin B12 Serum Folate TSH Urine Color Urine Appearance Urine pH Ur Specific [place] Urine Protein Urine Glucose (UA) Urine Ketones Urine Blood Urine Nitrite Urine Bilirubin Urine Urobilinogen Ur Leukocyte Esterase Urine WBC (Auto) Urine RBC (Auto) Urine Casts (Auto) U Epithel Cells (Auto) Urine Bacteria (Auto) U Random Total Protein Ur Random Sodium Urine Creatinine Protein/Creatinin Ratio Urine HCG, Qual COVID-19 (JAVON) Blood Type Antibody Screen Crossmatch 11/19/19 11/19/19 11/20/19 16:50 21:02 06:08 WBC RBC Hgb Hct MCV MCH MCHC RDW Plt Count MPV Absolute Neuts (auto) Neutrophils % Neutrophils % (Manual) Band Neutrophils % Lymphocytes % Lymphocytes % (Manual) Monocytes % Monocytes % (Manual) Eosinophils % Eosinophils % (Manual) Basophils % Basophils % (Manual) Myelocytes % (Man) Promyelocytes % (Man) Blast Cells % (Manual) Nucleated RBC % Metamyelocytes Hypochromia Platelet Estimate Polychromasia Poikilocytosis Anisocytosis Microcytosis Macrocytosis ESR Sodium Potassium Chloride Carbon Dioxide Anion Gap BUN Creatinine Est GFR (CKD-EPI)AfAm Est GFR (CKD-EPI)NonAf POC Glucometer 150 219 143 Random Glucose Hemoglobin A1c % Lactic Acid Calcium Phosphorus Magnesium Iron TIBC Iron Saturation Unsaturated IBC Ferritin Total Bilirubin AST ALT Alkaline Phosphatase C-Reactive Protein Total Protein Albumin Vitamin B12 Serum Folate TSH Urine Color Urine Appearance Urine pH Ur Specific [place] Urine Protein Urine Glucose (UA) Urine Ketones Urine Blood Urine Nitrite Urine Bilirubin Urine Urobilinogen Ur Leukocyte Esterase Urine WBC (Auto) Urine RBC (Auto) Urine Casts (Auto) U Epithel Cells (Auto) Urine Bacteria (Auto) U Random Total Protein Ur Random Sodium Urine Creatinine Protein/Creatinin Ratio Urine HCG, Qual COVID-19 (JAVON) Blood Type Antibody Screen Crossmatch 11/20/19 11/20/19 11/20/19 06:55 06:55 06:55 WBC RBC Hgb Hct MCV MCH MCHC RDW Plt Count MPV Absolute Neuts (auto) Neutrophils % Neutrophils % (Manual) Band Neutrophils % Lymphocytes % Lymphocytes % (Manual) Monocytes % Monocytes % (Manual) Eosinophils % Eosinophils % (Manual) Basophils % Basophils % (Manual) Myelocytes % (Man) Promyelocytes % (Man) Blast Cells % (Manual) Nucleated RBC % Metamyelocytes Hypochromia Platelet Estimate Polychromasia Poikilocytosis Anisocytosis Microcytosis Macrocytosis ESR 115 H Sodium 137 Potassium 4.6 Chloride 109 H Carbon Dioxide 17 L Anion Gap 11 BUN 62.9 H Creatinine 5.0 H Est GFR (CKD-EPI)AfAm 11.83 Est GFR (CKD-EPI)NonAf 10.20 POC Glucometer Random Glucose 130 H Hemoglobin A1c % Lactic Acid Calcium 8.2 L Phosphorus Magnesium Iron TIBC Iron Saturation Unsaturated IBC Ferritin Total Bilirubin AST ALT Alkaline Phosphatase C-Reactive Protein 7.2 H Total Protein Albumin Vitamin B12 Serum Folate TSH Urine Color Urine Appearance Urine pH Ur Specific [place] Urine Protein Urine Glucose (UA) Urine Ketones Urine Blood Urine Nitrite Urine Bilirubin Urine Urobilinogen Ur Leukocyte Esterase Urine WBC (Auto) Urine RBC (Auto) Urine Casts (Auto) U Epithel Cells (Auto) Urine Bacteria (Auto) U Random Total Protein Ur Random Sodium Urine Creatinine Protein/Creatinin Ratio Urine HCG, Qual COVID-19 (JAVON) Blood Type Antibody Screen Crossmatch 11/20/19 11/20/19 11/20/19 11:15 11:41 17:30 WBC RBC Hgb Hct MCV MCH MCHC RDW Plt Count MPV Absolute Neuts (auto) Neutrophils % Neutrophils % (Manual) Band Neutrophils % Lymphocytes % Lymphocytes % (Manual) Monocytes % Monocytes % (Manual) Eosinophils % Eosinophils % (Manual) Basophils % Basophils % (Manual) Myelocytes % (Man) Promyelocytes % (Man) Blast Cells % (Manual) Nucleated RBC % Metamyelocytes Hypochromia Platelet Estimate Polychromasia Poikilocytosis Anisocytosis Microcytosis Macrocytosis ESR Sodium Potassium Chloride Carbon Dioxide Anion Gap BUN Creatinine Est GFR (CKD-EPI)AfAm Est GFR (CKD-EPI)NonAf POC Glucometer 170 171 Random Glucose Hemoglobin A1c % Lactic Acid Calcium Phosphorus Magnesium Iron TIBC Iron Saturation Unsaturated IBC Ferritin Total Bilirubin AST ALT Alkaline Phosphatase C-Reactive Protein Total Protein Albumin Vitamin B12 Serum Folate TSH Urine Color Urine Appearance Urine pH Ur Specific [place] Urine Protein Urine Glucose (UA) Urine Ketones Urine Blood Urine Nitrite Urine Bilirubin Urine Urobilinogen Ur Leukocyte Esterase Urine WBC (Auto) Urine RBC (Auto) Urine Casts (Auto) U Epithel Cells (Auto) Urine Bacteria (Auto) U Random Total Protein 427.7 H Ur Random Sodium 45 Urine Creatinine 36.0 Protein/Creatinin Ratio 11.9 Urine HCG, Qual COVID-19 (AJVON) Blood Type Antibody Screen Crossmatch 11/20/19 11/21/19 11/21/19 21:44 05:31 07:42 WBC 13.1 H RBC 2.67 L Hgb 7.2 L Hct 22.5 L MCV 84.1 MCH 26.8 MCHC 31.9 L RDW 15.1 Plt Count 206 MPV 8.2 Absolute Neuts (auto) 9.8 H Neutrophils % 75.0 Neutrophils % (Manual) Band Neutrophils % Lymphocytes % 15.7 Lymphocytes % (Manual) Monocytes % 8.1 Monocytes % (Manual) Eosinophils % 0.8 Eosinophils % (Manual) Basophils % 0.4 Basophils % (Manual) Myelocytes % (Man) Promyelocytes % (Man) Blast Cells % (Manual) Nucleated RBC % 0 Metamyelocytes Hypochromia Platelet Estimate Polychromasia Poikilocytosis Anisocytosis Microcytosis Macrocytosis ESR Sodium Potassium Chloride Carbon Dioxide Anion Gap BUN Creatinine Est GFR (CKD-EPI)AfAm Est GFR (CKD-EPI)NonAf POC Glucometer 195 131 Random Glucose Hemoglobin A1c % Lactic Acid Calcium Phosphorus Magnesium Iron TIBC Iron Saturation Unsaturated IBC Ferritin Total Bilirubin AST ALT Alkaline Phosphatase C-Reactive Protein Total Protein Albumin Vitamin B12 Serum Folate TSH Urine Color Urine Appearance Urine pH Ur Specific [place] Urine Protein Urine Glucose (UA) Urine Ketones Urine Blood Urine Nitrite Urine Bilirubin Urine Urobilinogen Ur Leukocyte Esterase Urine WBC (Auto) Urine RBC (Auto) Urine Casts (Auto) U Epithel Cells (Auto) Urine Bacteria (Auto) U Random Total Protein Ur Random Sodium Urine Creatinine Protein/Creatinin Ratio Urine HCG, Qual COVID-19 (JAVON) Blood Type Antibody Screen Crossmatch 11/21/19 11/21/19 11/21/19 07:42 11:41 16:59 WBC RBC Hgb Hct MCV MCH MCHC RDW Plt Count MPV Absolute Neuts (auto) Neutrophils % Neutrophils % (Manual) Band Neutrophils % Lymphocytes % Lymphocytes % (Manual) Monocytes % Monocytes % (Manual) Eosinophils % Eosinophils % (Manual) Basophils % Basophils % (Manual) Myelocytes % (Man) Promyelocytes % (Man) Blast Cells % (Manual) Nucleated RBC % Metamyelocytes Hypochromia Platelet Estimate Polychromasia Poikilocytosis Anisocytosis Microcytosis Macrocytosis ESR Sodium 139 Potassium 4.4 Chloride 110 H Carbon Dioxide 16 L Anion Gap 13 BUN 59.6 H Creatinine 5.0 H Est GFR (CKD-EPI)AfAm 11.83 Est GFR (CKD-EPI)NonAf 10.20 POC Glucometer 207 230 Random Glucose 144 H Hemoglobin A1c % Lactic Acid Calcium 8.4 L Phosphorus Magnesium Iron TIBC Iron Saturation Unsaturated IBC Ferritin Total Bilirubin AST ALT Alkaline Phosphatase C-Reactive Protein Total Protein Albumin Vitamin B12 Serum Folate TSH Urine Color Urine Appearance Urine pH Ur Specific [place] Urine Protein Urine Glucose (UA) Urine Ketones Urine Blood Urine Nitrite Urine Bilirubin Urine Urobilinogen Ur Leukocyte Esterase Urine WBC (Auto) Urine RBC (Auto) Urine Casts (Auto) U Epithel Cells (Auto) Urine Bacteria (Auto) U Random Total Protein Ur Random Sodium Urine Creatinine Protein/Creatinin Ratio Urine HCG, Qual COVID-19 (JAVON) Blood Type Antibody Screen Crossmatch 11/21/19 11/22/19 11/22/19 21:43 05:50 06:45 WBC 11.8 H RBC 2.54 L Hgb 6.9 L* Hct 21.5 L MCV 84.7 MCH 27.4 MCHC 32.3 RDW 15.1 Plt Count 252 D MPV 8.8 Absolute Neuts (auto) 9.1 H Neutrophils % 76.9 Neutrophils % (Manual) Band Neutrophils % Lymphocytes % 14.0 Lymphocytes % (Manual) Monocytes % 7.6 Monocytes % (Manual) Eosinophils % 0.8 Eosinophils % (Manual) Basophils % 0.7 Basophils % (Manual) Myelocytes % (Man) Promyelocytes % (Man) Blast Cells % (Manual) Nucleated RBC % 0 Metamyelocytes Hypochromia Platelet Estimate Polychromasia Poikilocytosis Anisocytosis Microcytosis Macrocytosis ESR Sodium Potassium Chloride Carbon Dioxide Anion Gap BUN Creatinine Est GFR (CKD-EPI)AfAm Est GFR (CKD-EPI)NonAf POC Glucometer 226 152 Random Glucose Hemoglobin A1c % Lactic Acid Calcium Phosphorus Magnesium Iron TIBC Iron Saturation Unsaturated IBC Ferritin Total Bilirubin AST ALT Alkaline Phosphatase C-Reactive Protein Total Protein Albumin Vitamin B12 Serum Folate TSH Urine Color Urine Appearance Urine pH Ur Specific [place] Urine Protein Urine Glucose (UA) Urine Ketones Urine Blood Urine Nitrite Urine Bilirubin Urine Urobilinogen Ur Leukocyte Esterase Urine WBC (Auto) Urine RBC (Auto) Urine Casts (Auto) U Epithel Cells (Auto) Urine Bacteria (Auto) U Random Total Protein Ur Random Sodium Urine Creatinine Protein/Creatinin Ratio Urine HCG, Qual COVID-19 (JAVON) Blood Type Antibody Screen Crossmatch 11/22/19 11/22/19 11/22/19 06:45 08:25 10:47 WBC RBC Hgb Hct MCV MCH MCHC RDW Plt Count MPV Absolute Neuts (auto) Neutrophils % Neutrophils % (Manual) Band Neutrophils % Lymphocytes % Lymphocytes % (Manual) Monocytes % Monocytes % (Manual) Eosinophils % Eosinophils % (Manual) Basophils % Basophils % (Manual) Myelocytes % (Man) Promyelocytes % (Man) Blast Cells % (Manual) Nucleated RBC % Metamyelocytes Hypochromia Platelet Estimate Polychromasia Poikilocytosis Anisocytosis Microcytosis Macrocytosis ESR Sodium 138 Potassium 4.6 Chloride 111 H Carbon Dioxide 17 L Anion Gap 11 BUN 55.6 H Creatinine 5.1 H Est GFR (CKD-EPI)AfAm 11.54 Est GFR (CKD-EPI)NonAf 9.96 POC Glucometer 169 Random Glucose 143 H Hemoglobin A1c % Lactic Acid Calcium 8.0 L Phosphorus 6.4 H Magnesium 1.8 Iron TIBC Iron Saturation Unsaturated IBC Ferritin Total Bilirubin AST ALT Alkaline Phosphatase C-Reactive Protein Total Protein Albumin Vitamin B12 Serum Folate TSH Urine Color Urine Appearance Urine pH Ur Specific [place] Urine Protein Urine Glucose (UA) Urine Ketones Urine Blood Urine Nitrite Urine Bilirubin Urine Urobilinogen Ur Leukocyte Esterase Urine WBC (Auto) Urine RBC (Auto) Urine Casts (Auto) U Epithel Cells (Auto) Urine Bacteria (Auto) U Random Total Protein Ur Random Sodium Urine Creatinine Protein/Creatinin Ratio Urine HCG, Qual COVID-19 (JAVON) Blood Type O POSITIVE Antibody Screen Negative Crossmatch See Detail 11/22/19 11/22/19 11/23/19 19:10 23:00 06:03 WBC 15.2 H RBC 3.22 L Hgb 9.0 L Hct 27.7 L D MCV 86.0 MCH 28.0 MCHC 32.5 RDW 15.3 Plt Count 249 MPV 8.3 Absolute Neuts (auto) 14.3 H Neutrophils % 94.2 H D Neutrophils % (Manual) 94.0 H Band Neutrophils % 0.0 Lymphocytes % 4.1 L D Lymphocytes % (Manual) 3.0 L D Monocytes % 1.3 L D Monocytes % (Manual) 2 L Eosinophils % 0.0 D Eosinophils % (Manual) 0.0 D Basophils % 0.4 Basophils % (Manual) 0.0 Myelocytes % (Man) 1 D Promyelocytes % (Man) 0 Blast Cells % (Manual) 0 Nucleated RBC % 0 Metamyelocytes 0 Hypochromia 0 Platelet Estimate Polychromasia 1+ Poikilocytosis 1+ Anisocytosis 1+ Microcytosis 1+ Macrocytosis 0 ESR Sodium Potassium Chloride Carbon Dioxide Anion Gap BUN Creatinine Est GFR (CKD-EPI)AfAm Est GFR (CKD-EPI)NonAf POC Glucometer 388 369 Random Glucose Hemoglobin A1c % Lactic Acid Calcium Phosphorus Magnesium Iron TIBC Iron Saturation Unsaturated IBC Ferritin Total Bilirubin AST ALT Alkaline Phosphatase C-Reactive Protein Total Protein Albumin Vitamin B12 Serum Folate TSH Urine Color Urine Appearance Urine pH Ur Specific [place] Urine Protein Urine Glucose (UA) Urine Ketones Urine Blood Urine Nitrite Urine Bilirubin Urine Urobilinogen Ur Leukocyte Esterase Urine WBC (Auto) Urine RBC (Auto) Urine Casts (Auto) U Epithel Cells (Auto) Urine Bacteria (Auto) U Random Total Protein Ur Random Sodium Urine Creatinine Protein/Creatinin Ratio Urine HCG, Qual COVID-19 (JAVON) Blood Type Antibody Screen Crossmatch 11/23/19 11/23/19 11/23/19 09:00 09:00 11:38 WBC 10.4 H RBC 3.51 L Hgb 10.0 L Hct 30.2 L MCV 86.0 MCH 28.5 MCHC 33.2 RDW 15.0 Plt Count 280 MPV 8.2 Absolute Neuts (auto) 9.2 H Neutrophils % 87.7 H Neutrophils % (Manual) Band Neutrophils % Lymphocytes % 8.7 D Lymphocytes % (Manual) Monocytes % 3.3 L D Monocytes % (Manual) Eosinophils % 0.0 Eosinophils % (Manual) Basophils % 0.3 Basophils % (Manual) Myelocytes % (Man) Promyelocytes % (Man) Blast Cells % (Manual) Nucleated RBC % 0 Metamyelocytes Hypochromia Platelet Estimate Polychromasia Poikilocytosis Anisocytosis Microcytosis Macrocytosis ESR Sodium 133 L Potassium 4.9 Chloride 106 Carbon Dioxide 16 L Anion Gap 12 BUN 58.8 H Creatinine 4.9 H Est GFR (CKD-EPI)AfAm 12.12 Est GFR (CKD-EPI)NonAf 10.45 POC Glucometer 383 Random Glucose 358 H Hemoglobin A1c % Lactic Acid Calcium 8.4 L Phosphorus 6.4 H Magnesium 1.9 Iron TIBC Iron Saturation Unsaturated IBC Ferritin Total Bilirubin 0.5 AST 22 ALT 14 Alkaline Phosphatase 87 C-Reactive Protein Total Protein 7.1 Albumin 2.1 L Vitamin B12 Serum Folate TSH Urine Color Urine Appearance Urine pH Ur Specific [place] Urine Protein Urine Glucose (UA) Urine Ketones Urine Blood Urine Nitrite Urine Bilirubin Urine Urobilinogen Ur Leukocyte Esterase Urine WBC (Auto) Urine RBC (Auto) Urine Casts (Auto) U Epithel Cells (Auto) Urine Bacteria (Auto) U Random Total Protein Ur Random Sodium Urine Creatinine Protein/Creatinin Ratio Urine HCG, Qual COVID-19 (JAVON) Blood Type Antibody Screen Crossmatch Home Medications Medication Instructions Recorded Albuterol 0.083% Nebulizer Sarina 1 neb NEB Q6H PRN 10/06/17 [Ventolin 0.083% Nebulizer Soln -] Budesonide/Formeterol Fumarate 1 inh PO DAILY 10/06/17 [SYMBICORT 80/4.5mcg -] Insulin Glargine,Hum.rec.anlog 50 unit SQ BID 10/06/17 [Lantus] Insulin Lispro [Humalog] 30 unit SQ TID 04/18/18 Esomeprazole Magnesium [Nexium 40 mg PO DAILY 05/28/18 24Hr] Gabapentin [Neurontin] 600 mg PO TID 10/09/19 Sevelamer Carbonate [Renvela -] 800 mg PO TIDCM #90 tab 10/12/19 Dulaglutide [Trulicity] 1.5 mg SQ Q7D 11/18/19 Losartan Potassium 50 mg PO DAILY 11/18/19 Paroxetine HCl [Paxil -] 10 mg PO DAILY 11/18/19 Docusate Sodium [Colace -] 100 mg PO TID capsule 11/23/19 Sodium Bicarbonate - 1,300 mg PO BID tablet 11/23/19 ASSESSMENT AND PLAN: 39 F Vaginal bleeding s/p D&C 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 NaHCO3 at 1350mg TID, Cont. Sevelamer, no indication for HD as per renal service Strict glycemic control, increase basal insulin to keep BG <200 Follow up w/ [facility] service for cytology results Incentive spirometry, early ambulation Cont. BP meds Stable for DC home with follow up with [facility], Renal clinic and PMD.
--- NOTE | 2019-12-05 23:52 | OP ---
DATE OF OPERATION: 11/22/2019 PREOPERATIVE DIAGNOSIS: Abnormal vaginal bleeding and anemia. POSTOPERATIVE DIAGNOSIS: Abnormal vaginal bleeding and anemia. PROCEDURE: Dilation and curettage hysteroscopy. SURGEON: Kia Swanson MD. ANESTHESIA: General. COMPLICATIONS: None. ESTIMATED BLOOD LOSS: 50 mL. DESCRIPTION OF PROCEDURE: The patient was taken to the operating room, where general anesthesia was administered. Patient was then placed in lithotomy position. She was then prepped and draped in proper sterile fashion. A weighted speculum was placed in the vagina. Then the attempt to grasp the cervix was unsuccessful. There was a lot of bleeding, and the pelvis was barely visible, and so then using a ring forceps, the ring forceps was used to remove pieces of the friable cervix noted. So all these pieces were then sent to pathology. The endometrial cavity was unremarkable. Upon completion of the procedure, the instruments were removed. The patient was taken out of lithotomy position. She was taken to PACU in stable condition. PATHOLOGY: Pieces of the cervix. KIA SWANSON M.D. R[place]/[id number]
== END 2019-11-23 17:00 | disposition home or self-care (01) | DRG 517 ==
LOC: JER 17:23 → JERBED 21:26 → J6WEST-2 11-18 10:50 → J6S 11-18 19:49
PROVIDERS: ADMIT Internal Medicine
PROC: 30233N1 Transfusion of Nonautologous Red Blood Cells into Peripheral Vein, Percutaneous Approach (ICD-10-PCS; 2019-11-17)
PROC: 0UDB8ZX Extraction of Endometrium, Via Natural or Artificial Opening Endoscopic, Diagnostic (ICD-10-PCS; principal; 2019-11-22 15:00)
DX: C53.0 Malignant neoplasm of endocervix (principal); N93.8 Other specified abnormal uterine and vaginal bleeding; D63.1 Anemia in chronic kidney disease; J45.909 Unspecified asthma, uncomplicated; E88.81 Metabolic syndrome and other insulin resistance; F32.9 Major depressive disorder, single episode, unspecified; F41.8 Other specified anxiety disorders; F31.9 Bipolar disorder, unspecified; K21.9 Gastro-esophageal reflux disease without esophagitis; D72.829 Elevated white blood cell count, unspecified; N39.0 Urinary tract infection, site not specified; E87.5 Hyperkalemia; E66.9 Obesity, unspecified; Z68.36 Body mass index [BMI] 36.0-36.9, adult; E11.22 Type 2 diabetes mellitus with diabetic chronic kidney disease; D62 Acute posthemorrhagic anemia; E87.2 Acidosis; N18.3 Chronic kidney disease, stage 3 (moderate); N17.9 Acute kidney failure, unspecified; Q61.3 Polycystic kidney, unspecified; E11.40 Type 2 diabetes mellitus with diabetic neuropathy, unspecified
CPT/HCPCS: 36415; 36430; 36511; 71046-TC-FY; 74176-TC; 76830-TC; 80048; 80053; 81003; 82570; 82607; 82728; 82746; 82962; 83036; 83540; 83550; 83605; 83735; 84100; 84156; 84300; 84443; 84703; 85025; 85651; 86140; 86850; 86900; 86901; 86922; 87040; 87045; 87046; 87077; 87086; 87205; 88305-TC; 93005; 93010; 94640; 94760; 97116-GP; 97161-GP; 99285-25; J0885; J1756; P9038; P9058; Q5106; U0003

== ENCOUNTER 2019-12-20 12:28 | Inpatient (IN) | payer OTHER ==
--- NOTE | 2019-12-20 13:02 | PDOC ---
History of Present Illness - General Chief Complaint: Pain, Acute Stated Complaint: ABD PAIN Time Seen by Provider: 12/20/19 12:56 - History of Present Illness Initial Comments: 12/20/19 12:59 39 y/o F hx of anemia, iddm, cervical cancer, ADPCKD,presents to the Ed with vaginal bleeding and discharge. Pt was recently diagnosed with cervical cancer and reports she was prompted to come to ED because of increase in abdom inal pain. Pain is accross her lower abdomen and is 10/10 in intensity. No relieving or exacerbating factors. Pt took tylenol at home with no relief. She was scheduled to have cancer staging in 2 days. She denies any fevers, chills, nausea, vomiting, diarrhea, She endorses dark stools, yellowish foul smelling vaginal discharge. PMHx: as noted above ROS: as noted Allergies: NKDA Duster Tender/onc: Dr. Liliana Hi ROS: GENERAL/CONSTITUTIONAL: No fever or chills. No weakness. HEAD, EYES, EARS, NOSE AND THROAT: No change in vision. No ear pain or discharge. No sore throat. CARDIOVASCULAR: No chest pain or shortness of breath RESPIRATORY: No cough, wheezing, or hemoptysis. GASTROINTESTINAL: No nausea, vomiting, diarrhea or constipation. GENITOURINARY: No dysuria, frequency, or change in urination. MUSCULOSKELETAL: No joint or muscle swelling or pain. No neck or back pain. SKIN: No rash NEUROLOGIC: No headache, vertigo, loss of consciousness, or change in strength/sensation. ENDOCRINE: No increased thirst. No abnormal weight change HEMATOLOGIC/LYMPHATIC: No anemia, easy bleeding, or history of blood clots. ALLERGIC/IMMUNOLOGIC: No hives or skin allergy. PE: GENERAL: Awake, alert, and fully oriented, uncomfortable HEAD: No signs of trauma, normocephalic, atraumatic EYES: PERRLA, EOMI, sclera anicteric, conjunctiva clear ENT: Auricles normal inspection, hearing grossly normal, nares patent, oropharynx clear without exudates. Moist mucosa NECK: Normal ROM, supple, no lymphadenopathy, JVD, or masses LUNGS: speaks full sentences, clear to auscultation bilaterally HEART: Regular rate and rhythm, normal S1 and S2, no murmurs, rubs or gallops, peripheral pulses normal and equal bilaterally. ABDOMEN: RLQ tenderness no rebound or guarding. PELVIC: Nml appearing external genitalia, with absent lesions. Vaginal vault with minimal blood, yellowish discharge. Cervical os closed. Neg CMT on BM. right adnexal tenderness. EXTREMITIES : Normal inspection, Normal range of motion, no edema. No clubbing or cyanosis NEUROLOGICAL: Cranial nerves II through XII grossly intact. Normal speech,, no focal sensorimotor deficits SKIN: Warm, Dry, normal turgor, no rashes or lesions noted 12/20/19 16:51 12/20/19 17:52 12/20/19 17:53 Past History - Medical History Allergies/Adverse Reactions: Allergies Allergy/AdvReac Type Severity Reaction Status Date / Time No Known Allergies Allergy Verified 02/04/20 16:20 Home Medications: Ambulatory Orders Albuterol 0.083% Nebulizer Sarina [Ventolin 0.083% Nebulizer Soln -] 1 neb NEB Q6H PRN 10/06/17 Budesonide/Formeterol Fumarate [SYMBICORT 80/4.5mcg -] 2 puff IH BID 10/06/17 Insulin Glargine,Hum.rec.anlog [Lantus] 50 unit SQ BID 10/06/17 Insulin Lispro [Humalog] 30 unit SQ TID 04/18/18 Esomeprazole Magnesium [Nexium 24Hr] 40 mg PO DAILY 05/28/18 Gabapentin [Neurontin] 600 mg PO TID 10/09/19 Sevelamer Carbonate [Renvela -] 800 mg PO TIDCM #90 tab 10/12/19 Paroxetine HCl [Paxil -] 10 mg PO DAILY 11/18/19 Acetaminophen [Tylenol .Extra-Strength -] 2 tab PO PRN 01/16/20 Oxycodone HCl [Roxicodone] 5 mg PO ASDIR 02/03/20 Ferrous Sulfate [Feosol] 325 mg PO DAILY 02/06/20 Folic Acid - 1 mg PO DAILY #30 tablet 02/06/20 Losartan Potassium 50 mg PO DAILY 02/06/20 Montelukast Sodium [Singulair] 10 mg PO DAILY 02/06/20 Anemia: Yes Asthma: Yes Cardiac Disorders: No COPD: No CHF: No Diabetes: Yes (IDDM) Psychiatric Problems: Yes (DEPRESSION/ANXIETY/BIPOLAR) - Surgical History Abdominal Surgery: No Cholecystectomy: No - Reproductive History Dysfunctional Uterine Bleeding: Yes - Psycho-Social/Smoking History Smoking History: Never smoked Have you smoked in the past 12 months: No Number of Cigarettes Smoked Daily: 0 - Substance Abuse Hx (Audit-C & DAST Scrn) How often the patient has a drink containing alcohol: Never Score: In Men: 4 or > Positive; In Women: 3 or > Positive: 0 Screen Result (Pos requires Nsg. Audit-10AR): Negative In the last yr the pt used illegal drug/Rx for NonMed reason: No Score: Yes response is considered Positive: 0 Screen Result (Positive result requires Nsg. DAST-10): Negative *Physical Exam - Vital Signs Last Vital Signs Temp Pulse Resp BP Pulse Ox 98.9 F 94 H 20 117/49 L 99 12/20/19 12:48 12/20/19 12:48 12/20/19 12:48 12/20/19 12:48 12/20/19 12:48 ED Treatment Course - LABORATORY CBC & Chemistry Diagram: 12/28/19 06:53 12/28/19 06:53 Medical Decision Making - Medical Decision Making 12/20/19 14:50 39 y/o F hx of anemia, iddm, cervical cancer, ADPCKD,presents to the Ed with vaginal bleeding and discharge. Pt was recently diagnosed with cervical cancer and reports she was prompted to come to ED because of increase in abdominal pain hyperkalemic elevated Creatinine pt in acute renal failure with metabolic acidosis 12/20/19 15:24 Dr. Dai made aware pt will receive isotonic saline repeat EKG showed no peaked t Waves 12/20/19 15:28 12/20/19 17:51 Dr. Hi aware of pt's pending admission for renal failure and metabolic acidosis no specific recommendations at this time. 12/20/19 18:09 12/20/19 18:39 CT abdomen and pelvis. The partially imaged chest demonstrate small bilateral subpleural groundglass infiltrates which appear improved in comparison to an abdomen/pelvis CT study of 11/17/2019 - ? history of COVID-19 pneumonitis. Mild right hydroureteronephrosis is seen to the level of the lower pelvis. This finding appears unchanged in comparison to CT studies of 11/17/2019 on 10/08/2019 although not present on a more remote CT exam of 05/28/2018. No gross obstructing calculus or mass lesion is identified on the current exam allowing for limited soft tissue detail associated with body habitus. Additional evaluation utilizing noncontrast MR urography may be considered if there is a significant contraindication to performance of contrast-enhanced CT/CT urography. Interval development of mild right perirenal soft tissue stranding is noted laterally in comparison to the most recent CT exam of 11/17/2019 - ? due to obstruction and/or possible infect ion. Numerous bilateral renal cysts are again seen suggestive of polycystic kid david disease. Several punctate bilateral renal calcifications are again noted whi ch may be on the basis of nonobstructing calculi and/or dystrophic calcifications. Interval development of a nonspecific mildly enlarged left periaortic retroperitoneal lymph note is seen. Splenomegaly is noted with a 15.7 cm length. The degree of splenomegaly appears unchanged in comparison to recent CT exams although increased in comparison to the 2019 CT exam (measuring 13.5 cm at that time). Stable 1.5 cm left adrenal adenoma. Bowel, color evaluation is suggested if not previously performed. Note is again made of a moderate-sized right lower anterior pelvic wall hernia containing a nondilated small bowel lo op. Probable 3 cm left adnexal cyst. There is again visualization of air within the vaginal canal and vaginal fornices - ? incidental in nature versus less likely representing infection. Correlate clinically. Discharge - Discharge Information Problems reviewed: Yes Clinical Impression/Diagnosis: Abdominal pain, Renal failure Condition: Good Disposition: HOME - Follow up/Referral - Patient Discharge Instructions - Post Discharge Activity
--- NOTE | 2019-12-20 13:39 | PDOC ---
Documentation entered by Mai Ramos SCRIBE, acting as scribe for Kendrick Beckett MD. Kendrick Beckett MD: This documentation has been prepared by the Richard faust Ana, SCRIBE, under my direction and personally reviewed by me in its entirety. I confirm that the documentation accurately reflects all work, treatment, procedures, and medical decision making performed by me. Attending Attestation - Resident Resident Name: DavidBradleyirene - ED Attending Attestation I have performed the following: I have examined & evaluated the patient, The case was reviewed & discussed with the resident, I agree w/resident's findings & plan, Exceptions are as noted - HPI HPI: 12/20/19 13:04 Patient is a 39 year old female with a significant past medical history of IDDM, anemia, asthma, depression, anxiety and bipolar, who presents to the ED with lower abdominal pain for one month, worsening over the last few days with some discharge Symptoms are moderate to severe persistent constant no exacerbating alleviating factors. Patient denies: Allergies: NKDA - Physicial Exam PE: 12/20/19 13:05 Vitals: Triage Vital signs reviewed General Appearance: no acute distress, well nourished well developed, Head: Atraumatic, normocephalic Chest Wall: Nontender Cardiac: Regular rate and rhythm, no murmurs, no rubs, no gallops, Lungs: Clear to auscultation bilateral, good air movement bilaterally, Abdomen: Soft, nondistended, normal bowel sounds, nontender to palpation Rectal: Exam deferred Extremities: Full range of motion to all extremities, no cyanosis, clubbing, or edema Skin: Warm and dry, no rashes or lesions, no petechiae Psych: normal mood, normal affect - Medical Decision Making 12/20/19 16:34 39 years old with cervical cancer scheduled for procedure this chronic lower abdominal pain now worsening and 10 out of 10 Labs notable for acute renal failure patient is still making some urine CT abdomen ordered Patient require admission renal consultation and GYNONC consultation Will admit to medicine for further management. EKG demonstrates no evidence of hyperkalemia no peaked T's no widened QRS 12/23/19 12:20 Discharge - Discharge Information Problems reviewed: Yes Clinical Impression/Diagnosis: Abdominal pain Qualifiers: Abdominal location: generalized Qualified Code(s): R10.84 - Generalized abdominal pain Renal failure Qualifiers: Renal failure chronicity: acute Acute renal failure type: unspecified Qualified Code(s): N17.9 - Acute kidney failure, unspecified - Follow up/Referral - Patient Discharge Instructions - Post Discharge Activity
[2019-12-20] MEDS ORDERED: morphine CARPU-JECT 4 MG/1 ML DISP.SYRIN IVPUSH ONE (13:46)
[2019-12-20] MEDS ORDERED: morphine SULFATE 4 MG/ML VIAL ONE (14:07)
[2019-12-20 14:08] LABS: INR 1.06 (0.83-1.09); PROTHROMBIN TIME (PATIENT) 12.5 SEC (9.7-13.0)
[2019-12-20 14:11] LABS: ACTIVATED PTT 28.1 SECONDS (25.2-36.5)
[2019-12-20 14:24] LABS: ALBUMIN 1.7 g/dl (3.4-5.0); BILIRUBIN,TOTAL 0.2 mg/dL (0.2-1); CALCIUM 8.2 mg/dL (8.5-10.1); POTASSIUM 5.5 mmol/L (3.5-5.1); TOT PROT 6.1 g/dl (6.4-8.2)
[2019-12-20 14:35] LABS: CREATININE 7.4 mg/dL (0.55-1.3)
[2019-12-20 15:04] LABS: BASO % 0.6 % (0-2.0); HEMATOCRIT 26.5 % (32.4-45.2); HEMOGLOBIN 8.4 GM/dL (10.7-15.3); LYMPH % 13.4 % (8-40); MCH 26.7 pg (25.7-33.7); MCHC 31.6 g/dl (32.0-36.0); MEAN CELL VOLUME 84.4 fl (80-96); MEAN PLT VOLUME 7.7 fl (7.5-11.1); MONO % 7.2 % (3.8-10.2); NEUT % 77.8 % (42.8-82.8); PLATELET COUNT 277 K/MM3 (134-434); RBC 3.14 M/mm3 (3.60-5.2); RDW 16.2 % (11.6-15.6); WHITE BLOOD COUNT 15.4 K/mm3 (4.0-10.0)
[2019-12-20] MEDS ORDERED: SODIUM CHLORIDE 0.45% 1,000 ML with SODIUM BICARBONATE 8.4% - 75 MEQ IV ONE (15:16)
[2019-12-20] MEDS ORDERED: SODIUM CHLORIDE 0.45% 1,000 ML with SODIUM BICARBONATE 8.4% - 75 MEQ IV SCH (15:30)
[2019-12-20] MEDS ORDERED: morphine CARPU-JECT 2 MG/1 ML DISP.SYRIN IVPUSH ONE (17:53)
[2019-12-20 18:05] LABS: EPI CELLS >36 /uL (0-25.1); HYALINE CASTS 1 /uL (0-3.1); URINE APPEARANCE CLEAR; URINE BACTERIA 269 /uL (0-1359); URINE BILIRUBIN NEGATIVE (NEGATIVE); URINE COLOR YELLOW; URINE GLUCOSE (UA) 2+ (NEGATIVE); URINE KETONE NEGATIVE (NEGATIVE); URINE LEUK ESTERASE TRACE (NEGATIVE); URINE NITRITE NEGATIVE (NEGATIVE); URINE PROTEIN 4+ (NEGATIVE); URINE RBC 318 /uL (0-23.9); URINE UROBILINOGEN 0.2 mg/dL (0.2-1.0); URINE WBC 61 /uL (0-25.8)
[2019-12-20] MEDS ORDERED: SODIUM BICARBONATE 8.4% 50 MEQ/50 ML DISP.SYRIN IVPUSH ONE (18:14)
--- NOTE | 2019-12-20 18:14 | CONSULT ---
Consult Consult Specialty:: Nephrology Reason for Consultation:: VICENTE on CKD - History of Present Illness Chief Complaint: abdominal pain History of Present Illness: Pt is a 39 year old female with pmhx of dm, anemia, asthma, depression anxiety, PKD, and bipor who presents with lower abdominal pain. SHe describes the pain as sever. She says she was recently diagnosed with cervical cancer. She was found to have worsening renal function. She denies shortness of breath, chest pain or palpitations. She says that her last gfr was about 11. She denies sick contacts. - History Source History Provided By: Patient, Medical Record - Past Medical History Renal/: Yes: Renal Inusuff, Other (PCKD) ...LMP: 11/03/19 Endocrine: Yes: Diabetes Mellitus - Past Surgical History Past Surgical History: Yes: - Alcohol/Substance Use Hx Alcohol Use: No - Smoking History Smoking history: Never smoked Have you smoked in the past 12 months: No Aproximately how many cigarettes per day: 0 - Social History History of Recent Travel: No Home Medications - Allergies Allergies/Adverse Reactions: Allergies Allergy/AdvReac Type Severity Reaction Status Date / Time No Known Allergies Allergy Verified 12/20/19 12:45 - Home Medications Home Medications: Ambulatory Orders Albuterol 0.083% Nebulizer Sarina [Ventolin 0.083% Nebulizer Soln -] 1 neb NEB Q6H PRN 10/06/17 Budesonide/Formeterol Fumarate [SYMBICORT 80/4.5mcg -] 1 inh PO DAILY 10/06/17 Insulin Glargine,Hum.rec.anlog [Lantus] 50 unit SQ BID 10/06/17 Insulin Lispro [Humalog] 30 unit SQ TID 04/18/18 Esomeprazole Magnesium [Nexium 24Hr] 40 mg PO DAILY 05/28/18 Gabapentin [Neurontin] 600 mg PO TID 10/09/19 Sevelamer Carbonate [Renvela -] 800 mg PO TIDCM #90 tab 10/12/19 Dulaglutide [Trulicity] 1.5 mg SQ Q7D 11/18/19 Losartan Potassium 50 mg PO DAILY 11/18/19 Paroxetine HCl [Paxil -] 10 mg PO DAILY 11/18/19 Docusate Sodium [Colace -] 100 mg PO TID capsule 11/23/19 Sodium Bicarbonate - 1,300 mg PO BID tablet 11/23/19 Family Medical History Family History: Denies Review of Systems - Review of Systems Constitutional: reports: Malaise Eyes: reports: No Symptoms HENT: reports: No Symptoms Neck: reports: No Symptoms Cardiovascular: reports: No Symptoms Gastrointestinal: reports: Abdominal Pain Genitourinary: reports: No Symptoms Musculoskeletal: reports: No Symptoms Integumentary: reports: No Symptoms Neurological: reports: No Symptoms Endocrine: reports: No Symptoms Hematology/Lymphatic: reports: No Symptoms Psychiatric: reports: No Symptoms Physical Exam Vital Signs: Vital Signs Temperature 98.0 F 12/20/19 16:51 Pulse Rate 92 H 12/20/19 16:51 Respiratory Rate 19 12/20/19 16:51 Blood Pressure 119/61 12/20/19 16:51 O2 Sat by Pulse Oximetry (%) 100 12/20/19 16:51 Constitutional: Yes: Calm Eyes: Yes: Conjunctiva Clear HENT: Yes: Atraumatic Neck: Yes: Supple Cardiovascular: Yes: S1, S2 Respiratory: Yes: CTA Bilaterally Gastrointestinal: Yes: Soft Renal/: Yes: WNL Musculoskeletal: Yes: WNL Edema: No Neurological: Yes: Oriented Psychiatric: Yes: Oriented Labs: CBC, BMP 12/20/19 13:07 12/20/19 13:17 Laboratory Tests 11/19/19 11/20/19 11/21/19 07:25 06:55 07:42 Creatinine 4.7 H 5.0 H 5.0 H Urine Protein C. trachomatis (JAVON) N. gonorrhoeae (JAVON) 11/22/19 11/23/19 12/20/19 06:45 09:00 13:17 Creatinine 5.1 H 4.9 H 7.4 H* Urine Protein C. trachomatis (JAVON) N. gonorrhoeae (JAVON) 12/20/19 12/20/19 15:21 15:27 Creatinine Urine Protein 4+ H C. trachomatis (JAVON) Pending N. gonorrhoeae (JAVON) Pending Problem List - Problems (1) Acute renal failure Code(s): N17.9 - ACUTE KIDNEY FAILURE, UNSPECIFIED (2) CKD (chronic kidney disease) Code(s): N18.9 - CHRONIC KIDNEY DISEASE, UNSPECIFIED Assessment/Plan Current Medications Generic Name Dose Route Start Last Admin Trade Name Freq PRN Reason Stop Dose Admin Sodium Bicarbonate 75 meq/ 1,075 mls @ 250 mls/hr 12/20/19 15:30 Sodium Chloride IV 12/20/19 23:00 Q4H UMBERTO Wide Open Impression 1. Acute on chronic renal insufficiency 2. Chronic anemia 3. hyperkalemia 4. Metabolic acidosis 5. DM 6. abdominal pain 7. polycystic kidney disease 8. cervical cancer Plan - follow repeat labs - treat potassium medically - follow ct abdomen results - keep npo past midnight for possible permacath if number not improved after fluids - discussed with er team, they will repeat bmp - abd pain workup in progress - admit to monitored setting - check phos levels - monitor bicarb - avoid nsaids
[2019-12-20] MEDS ORDERED: HYDROmorphone HCL CARPU-JECT 2 MG/1 ML DISP.SYRIN IVPUSH ONE (18:20)
[2019-12-20] MEDS ORDERED: HYDROmorphone HCl 2 MG/ML VIAL ONE (18:22)
[2019-12-20] MEDS ORDERED: SODIUM BICARBONATE 8.4% - 50 ML ONE (18:23)
[2019-12-20] MEDS: SODIUM BICARBONATE 8.4% - 75 MEQ in SODIUM CHLORIDE 0.45% 1,000 ML IV SCH (18:46)
[2019-12-20] MEDS ORDERED: CALCIUM GLUCONATE 10% - 1,000 MG/10 ML VIAL IVPB ONE (21:16)
[2019-12-20] MEDS ORDERED: DEXTROSE 50%-WATER - 25 GM/50 ML VIAL IVPUSH ONE (21:17)
[2019-12-20] MEDS ORDERED: INSULIN REGULAR HUMAN 100 UNITS/ML *VIAL IVPUSH ONE (21:17)
--- NOTE | 2019-12-20 21:21 | PN ---
Teaching Attending Note Name of Resident: Ramos Gray ATTENDING PHYSICIAN STATEMENT I saw and evaluated the patient. I reviewed the resident's note and discussed the case with the resident. I agree with the resident's findings and plan as documented. SUBJECTIVE: 39 years old F with PMH of ADPCKD, anemia, cervical CA presented to ED with abd pain, vaginal bleeding in discharge. She has been having abd pain for around 1 month on and off which is getting worse. pain located on lower abdomen, cramping like, 02/01 OBJECTIVE: Last Vital Signs Temp Pulse Resp BP Pulse Ox 98.0 F 92 H 19 119/61 100 12/20/19 16:51 12/20/19 16:51 12/20/19 16:51 12/20/19 16:51 12/20/19 16:51 Laboratory Results - last 24 hr 12/20/19 12/20/19 12/20/19 13:07 13:17 13:17 WBC 15.4 H RBC 3.14 L Hgb 8.4 L Hct 26.5 L MCV 84.4 MCH 26.7 MCHC 31.6 L RDW 16.2 H Plt Count 277 MPV 7.7 Absolute Neuts (auto) 12.0 H Neutrophils % 77.8 Lymphocytes % 13.4 D Monocytes % 7.2 D Eosinophils % 1.0 D Basophils % 0.6 Nucleated RBC % 0 PT with INR 12.50 INR 1.06 PTT (Actin FS) 28.1 Sodium Potassium Chloride Carbon Dioxide Anion Gap BUN Creatinine Est GFR (CKD-EPI)AfAm Est GFR (CKD-EPI)NonAf Random Glucose Calcium Total Bilirubin AST ALT Alkaline Phosphatase Total Protein Albumin Beta HCG, Quant < 1.0 Urine Color Urine Appearance Urine pH Ur Specific [place] Urine Protein Urine Glucose (UA) Urine Ketones Urine Blood Urine Nitrite Urine Bilirubin Urine Urobilinogen Ur Leukocyte Esterase Urine WBC (Auto) Urine RBC (Auto) Urine Casts (Auto) U Epithel Cells (Auto) U Sm Round Cell (Auto) Urine Bacteria (Auto) Ur Random Creatinine Ur Random Sodium Ur Random Potassium Ur Random Chloride Stool Occult Blood Blood Type Antibody Screen 12/20/19 12/20/19 12/20/19 13:17 13:17 14:44 WBC RBC Hgb Hct MCV MCH MCHC RDW Plt Count MPV Absolute Neuts (auto) Neutrophils % Lymphocytes % Monocytes % Eosinophils % Basophils % Nucleated RBC % PT with INR INR PTT (Actin FS) Sodium 135 L Potassium 5.5 H Chloride 108 H Carbon Dioxide 14 L Anion Gap 13 BUN 79.0 H Creatinine 7.4 H* Est GFR (CKD-EPI)AfAm 7.36 Est GFR (CKD-EPI)NonAf 6.35 Random Glucose 206 H Calcium 8.2 L Total Bilirubin 0.2 AST 9 L ALT 10 L Alkaline Phosphatase 77 Total Protein 6.1 L Albumin 1.7 L Beta HCG, Quant Urine Color Urine Appearance Urine pH Ur Specific [place] Urine Protein Urine Glucose (UA) Urine Ketones Urine Blood Urine Nitrite Urine Bilirubin Urine Urobilinogen Ur Leukocyte Esterase Urine WBC (Auto) Urine RBC (Auto) Urine Casts (Auto) U Epithel Cells (Auto) U Sm Round Cell (Auto) Urine Bacteria (Auto) Ur Random Creatinine Ur Random Sodium Ur Random Potassium Ur Random Chloride Stool Occult Blood Negative Blood Type O POSITIVE Antibody Screen Negative 12/20/19 12/20/19 15:21 15:21 WBC RBC Hgb Hct MCV MCH MCHC RDW Plt Count MPV Absolute Neuts (auto) Neutrophils % Lymphocytes % Monocytes % Eosinophils % Basophils % Nucleated RBC % PT with INR INR PTT (Actin FS) Sodium Potassium Chloride Carbon Dioxide Anion Gap BUN Creatinine Est GFR (CKD-EPI)AfAm Est GFR (CKD-EPI)NonAf Random Glucose Calcium Total Bilirubin AST ALT Alkaline Phosphatase Total Protein Albumin Beta HCG, Quant Urine Color Yellow Urine Appearance Clear Urine pH 6.0 Ur Specific [place] 1.015 Urine Protein 4+ H Urine Glucose (UA) 2+ H Urine Ketones Negative Urine Blood 3+ H Urine Nitrite Negative Urine Bilirubin Negative Urine Urobilinogen 0.2 Ur Leukocyte Esterase Trace Urine WBC (Auto) 61 Urine RBC (Auto) 318 Urine Casts (Auto) 1 U Epithel Cells (Auto) >36 U Sm Round Cell (Auto) None Urine Bacteria (Auto) 269 Ur Random Creatinine 42.0 Ur Random Sodium 47 Ur Random Potassium 27.0 Ur Random Chloride 40 L Stool Occult Blood Blood Type Antibody Screen After coming to ED she was found to have Arley on CKD, hyperkalemia with metabolic acidosis GENERAL: The patient is awake, alert, and fully oriented, Nontoxic - in no acute distress. HEAD: Normocephalic, atraumatic. EYES: extraocular movements intact, sclera anicteric, conjunctiva clear. ENT: Normal voice, Moist mucous membranes. NECK: Normal range of motion, supple LUNGS: Breath sounds equal, clear to auscultation bilaterally. No wheezes, no rhonchi, no rales. HEART: Regular rate and rhythm, normal S1 and S2 without murmur, rub or gallop. ABDOMEN: Soft, nontender, No guarding, no rebound. No CVA tenderness EXTREMITIES: Normal range of motion, no edema. NEUROLOGICAL: No facial assymetry, Normal speech, No focal Neurological deficit chestv pain PSYCH: Normal mood, normal affect. SKIN: Warm, Dry, normal turgor, ASSESSMENT AND Plan Abd pain likely due to Cervical cancer ARLEY on CKD Hyperkalemia due to ARLEY Non anion gap metabolic acidosis hypoalbuminemia mild hyponatremia ADPCKD, anemia, cervical CA , bipolar Do neurtophilic leucocytosis ? reactive Admit to tele Correct K medically. repeat K in AM Strict intake output IV fluid NS 84 ml/hour Nephrology consult appreciated. Follow Recs NPO for possible permcath palcement No evidence of infection at this time will hold off on antibiotics gasoline attendant consult Pian management Avoid NSAIDS, nephrotoxic drug DVt ppx resume home meds id not contraindiated POCT with RISS
--- NOTE | 2019-12-20 21:53 | DS ---
Physical Exam: Patient is a 39yo female with a PMH of recently diagnosed Cervical cancer, ADPKD,Diabetes and Vital Signs Period Temp Pulse Resp BP Sys/Farah Pulse Ox Last 24 Hr 98.0 F-98.9 F 92-94 19-20 117-119/49-61 99-100 PHYSICAL EXAM GENERAL: The patient is awake, alert, and fully oriented, in no acute distress. HEAD: Normal with no signs of trauma. EYES: PERRL, extraocular movements intact, sclera anicteric, conjunctiva clear. ENT: Ears normal, nares patent, oropharynx clear without exudates, moist mucous membranes. NECK: Trachea midline, full range of motion, supple. LUNGS: Breath sounds equal, clear to auscultation bilaterally, no wheezes, no crackles, no accessory muscle use. HEART: Regular rate and rhythm, S1, S2 without murmur, rub or gallop. ABDOMEN: Soft, nontender, nondistended, normoactive bowel sounds, no guarding, no rebound, no hepatosplenomegaly, no masses. EXTREMITIES: 2+ pulses, warm, well-perfused, no edema. NEUROLOGICAL: Cranial nerves II through XII grossly intact. Normal speech, gait not observed. PSYCH: Normal mood, normal affect. SKIN: Warm, dry, normal turgor, no rashes or lesions noted. LABS Laboratory Results - last 24 hr 12/20/19 12/20/19 12/20/19 13:07 13:17 13:17 WBC 15.4 H RBC 3.14 L Hgb 8.4 L Hct 26.5 L MCV 84.4 MCH 26.7 MCHC 31.6 L RDW 16.2 H Plt Count 277 MPV 7.7 Absolute Neuts (auto) 12.0 H Neutrophils % 77.8 Lymphocytes % 13.4 D Monocytes % 7.2 D Eosinophils % 1.0 D Basophils % 0.6 Nucleated RBC % 0 PT with INR 12.50 INR 1.06 PTT (Actin FS) 28.1 Sodium Potassium Chloride Carbon Dioxide Anion Gap BUN Creatinine Est GFR (CKD-EPI)AfAm Est GFR (CKD-EPI)NonAf Random Glucose Calcium Total Bilirubin AST ALT Alkaline Phosphatase Total Protein Albumin Beta HCG, Quant < 1.0 Urine Color Urine Appearance Urine pH Ur Specific [place] Urine Protein Urine Glucose (UA) Urine Ketones Urine Blood Urine Nitrite Urine Bilirubin Urine Urobilinogen Ur Leukocyte Esterase Urine WBC (Auto) Urine RBC (Auto) Urine Casts (Auto) U Epithel Cells (Auto) U Sm Round Cell (Auto) Urine Bacteria (Auto) Ur Random Creatinine Ur Random Sodium Ur Random Potassium Ur Random Chloride Stool Occult Blood Blood Type Antibody Screen 12/20/19 12/20/19 12/20/19 13:17 13:17 14:44 WBC RBC Hgb Hct MCV MCH MCHC RDW Plt Count MPV Absolute Neuts (auto) Neutrophils % Lymphocytes % Monocytes % Eosinophils % Basophils % Nucleated RBC % PT with INR INR PTT (Actin FS) Sodium 135 L Potassium 5.5 H Chloride 108 H Carbon Dioxide 14 L Anion Gap 13 BUN 79.0 H Creatinine 7.4 H* Est GFR (CKD-EPI)AfAm 7.36 Est GFR (CKD-EPI)NonAf 6.35 Random Glucose 206 H Calcium 8.2 L Total Bilirubin 0.2 AST 9 L ALT 10 L Alkaline Phosphatase 77 Total Protein 6.1 L Albumin 1.7 L Beta HCG, Quant Urine Color Urine Appearance Urine pH Ur Specific [place] Urine Protein Urine Glucose (UA) Urine Ketones Urine Blood Urine Nitrite Urine Bilirubin Urine Urobilinogen Ur Leukocyte Esterase Urine WBC (Auto) Urine RBC (Auto) Urine Casts (Auto) U Epithel Cells (Auto) U Sm Round Cell (Auto) Urine Bacteria (Auto) Ur Random Creatinine Ur Random Sodium Ur Random Potassium Ur Random Chloride Stool Occult Blood Negative Blood Type O POSITIVE Antibody Screen Negative 12/20/19 12/20/19 15:21 15:21 WBC RBC Hgb Hct MCV MCH MCHC RDW Plt Count MPV Absolute Neuts (auto) Neutrophils % Lymphocytes % Monocytes % Eosinophils % Basophils % Nucleated RBC % PT with INR INR PTT (Actin FS) Sodium Potassium Chloride Carbon Dioxide Anion Gap BUN Creatinine Est GFR (CKD-EPI)AfAm Est GFR (CKD-EPI)NonAf Random Glucose Calcium Total Bilirubin AST ALT Alkaline Phosphatase Total Protein Albumin Beta HCG, Quant Urine Color Yellow Urine Appearance Clear Urine pH 6.0 Ur Specific [place] 1.015 Urine Protein 4+ H Urine Glucose (UA) 2+ H Urine Ketones Negative Urine Blood 3+ H Urine Nitrite Negative Urine Bilirubin Negative Urine Urobilinogen 0.2 Ur Leukocyte Esterase Trace Urine WBC (Auto) 61 Urine RBC (Auto) 318 Urine Casts (Auto) 1 U Epithel Cells (Auto) >36 U Sm Round Cell (Auto) None Urine Bacteria (Auto) 269 Ur Random Creatinine 42.0 Ur Random Sodium 47 Ur Random Potassium 27.0 Ur Random Chloride 40 L Stool Occult Blood Blood Type Antibody Screen HOSPITAL COURSE: Date of Admission:12/20/19 Date of Discharge: 12/20/19 Discharge Summary Reason For Visit: ABD PAIN - Instructions Referrals: Billie Mulligan MD [Staff Physician] - - Home Medications Comprehensive Discharge Medication List: Ambulatory Orders Albuterol 0.083% Nebulizer Sarina [Ventolin 0.083% Nebulizer Soln -] 1 neb NEB Q6H PRN 10/06/17 Budesonide/Formeterol Fumarate [SYMBICORT 80/4.5mcg -] 1 inh PO DAILY 10/06/17 Insulin Glargine,Hum.rec.anlog [Lantus] 50 unit SQ BID 10/06/17 Insulin Lispro [Humalog] 30 unit SQ TID 04/18/18 Esomeprazole Magnesium [Nexium 24Hr] 40 mg PO DAILY 05/28/18 Gabapentin [Neurontin] 600 mg PO TID 10/09/19 Sevelamer Carbonate [Renvela -] 800 mg PO TIDCM #90 tab 10/12/19 Dulaglutide [Trulicity] 1.5 mg SQ Q7D 11/18/19 Losartan Potassium 50 mg PO DAILY 11/18/19 Paroxetine HCl [Paxil -] 10 mg PO DAILY 11/18/19 Docusate Sodium [Colace -] 100 mg PO TID capsule 11/23/19 Sodium Bicarbonate - 1,300 mg PO BID tablet 11/23/19 ATTENDING PHYSICIAN STATEMENT I saw and evaluated the patient. I reviewed the resident's note and discussed the case with the resident. I agree with the resident's findings and plan as documented. SUBJECTIVE: OBJECTIVE: ASSESSMENT AND PLAN:
--- NOTE | 2019-12-20 22:06 | HP ---
CHIEF COMPLAINT: Lower Abdominal pain x 1 month PCP: Dr. Read HISTORY OF PRESENT ILLNESS: Pt is a 39yo female with PMH of COVID-19(3 months ago), ADPCKD, +HPV, newly diagnosed cervical CA (October 2019), IDDM, recurrent fall (walks with a cane), mild persistent asthma, bipolar depression and anxiety disorder who presented to ED with lower abd pain of 1 month duration. Pain was of gradual in onset, is cramping, brief mild relieved by tylenol, worsened by movement, has a severity of 9/10 and associated with malodorous, blood stained, copious vaginal discharge of 5 months duration. Patient wears pull-up diapers to limit the discomfort by copious discharge. First presented with vaginal discharge 5mo ago and was diagnosed with cervical cancer one month ago. Pt denies N/V and hematemesis but admits to constipation which usually lasts for about 3-4 days and reduced when she takes prune or apple juice (Pt is on iron supplement). She developed diarrhea 3days ago self limiting. Has had 3 episodes of dark watery stool today, is copious, and darker than her usual dark stool. She also denies cough, rhinorrhea, chest pain, SOB, hemoptysis,dizziness, AMS and auditory impairment but has blurry vision ER course was notable for: (1) IVF resuscitation (2) WBC 15.5/mm3 (3) Hyperkalemia 5.5 PMH: As above + last press writer appointment in May, Last opthalmologist follow-up was 2 weeks ago PAST SURGICAL HISTORY: Laser surgery on right eye FAMILY HX: Strong family hx of ADPKD: mother, aunty, uncle and cousins. Aunt and uncle of complications. 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:, LMP was 3 weeks ago, lasted 10days Social History: Smoking: limited, about 3 cigarettes/day for 3 yrs, stopped 15yrs ago Alcohol: Occasionally about a bottle each time Drugs: Denies illicit drug use Allergies: No Known Allergies Allergy (Verified 12/20/19 12:45) HOME MEDICATIONS: Medication Instructions Recorded Albuterol 0.083% Nebulizer Sarina 1 neb NEB Q6H PRN 10/06/17 [Ventolin 0.083% Nebulizer Soln -] Budesonide/Formeterol Fumarate 1 inh PO DAILY 10/06/17 [SYMBICORT 80/4.5mcg -] Insulin Glargine,Hum.rec.anlog 50 unit SQ BID 10/06/17 [Lantus] Insulin Lispro [Humalog] 30 unit SQ TID 04/18/18 Esomeprazole Magnesium [Nexium 40 mg PO DAILY 05/28/18 24Hr] Gabapentin [Neurontin] 600 mg PO TID 10/09/19 Sevelamer Carbonate [Renvela -] 800 mg PO TIDCM #90 tab 10/12/19 Dulaglutide [Trulicity] 1.5 mg SQ Q7D 11/18/19 Losartan Potassium 50 mg PO DAILY 11/18/19 Paroxetine HCl [Paxil -] 10 mg PO DAILY 11/18/19 Docusate Sodium [Colace -] 100 mg PO TID capsule 11/23/19 Sodium Bicarbonate - 1,300 mg PO BID tablet 11/23/19 REVIEW OF SYSTEMS: Negative except as in HPI Vital Signs - 24 hr 12/20/19 12/20/19 12:48 16:51 Temperature 98.9 F 98.0 F Pulse Rate 94 H Pulse Rate [ 92 H Apical] Respiratory 20 19 Rate Blood Pressure 117/49 L Blood Pressure 119/61 [Right Arm] O2 Sat by Pulse 99 100 Oximetry (%) GENERAL: Awake, alert, and fully oriented, weak and in painful distress. NECK: Normal range of motion, supple without lymphadenopathy CHEST/LUNGS: Looks mildly tachypnoic(in pain), no tenderness, has vesicular breath sounds b/l lung azul on auscultation, no wheezes, no crackles HEART: S1 and S2, regular rythm, without murmur, rub or gallop. ABDOMEN: Patient is wearing a pull-up, small periumblical scars(from incised and drained abscesses) normoactive bowel sounds, abd is soft, not distended, full, tensed and moderately tender suprapubic region. Mild hepatomegaly. PELVIC: Abdomen as above. No gross lesion. No apparent vaginal dc. No lacertions. Cervical os visualized with no lesions. MUSCULOSKELETAL: Normal range of motion on all limbs EXTREMITIES: 2+ pulses, warm, well-perfused. No pp edema. NEUROLOGICAL: Alert, oriented x 3, no speech or auditory deficit but patient has blurry vision and uses converging lense PSYCH: Sad affect. Crying about pain and health status SKIN: Warm, dry, normal turgor. PSYCHIATRIC: Cooperative. Good eye contact. sad affect. SKIN: Warm, dry, normal turgor, no rashes or lesions noted, normal capillary refill. Laboratory Results - last 24 hr 12/20/19 12/20/19 12/20/19 13:07 13:17 13:17 WBC 15.4 H RBC 3.14 L Hgb 8.4 L Hct 26.5 L MCV 84.4 MCH 26.7 MCHC 31.6 L RDW 16.2 H Plt Count 277 MPV 7.7 Absolute Neuts (auto) 12.0 H Neutrophils % 77.8 Lymphocytes % 13.4 D Monocytes % 7.2 D Eosinophils % 1.0 D Basophils % 0.6 Nucleated RBC % 0 PT with INR 12.50 INR 1.06 PTT (Actin FS) 28.1 Sodium Potassium Chloride Carbon Dioxide Anion Gap BUN Creatinine Est GFR (CKD-EPI)AfAm Est GFR (CKD-EPI)NonAf Random Glucose Calcium Total Bilirubin AST ALT Alkaline Phosphatase Total Protein Albumin Beta HCG, Quant < 1.0 Urine Color Urine Appearance Urine pH Ur Specific [place] Urine Protein Urine Glucose (UA) Urine Ketones Urine Blood Urine Nitrite Urine Bilirubin Urine Urobilinogen Ur Leukocyte Esterase Urine WBC (Auto) Urine RBC (Auto) Urine Casts (Auto) U Epithel Cells (Auto) U Sm Round Cell (Auto) Urine Bacteria (Auto) Ur Random Creatinine Ur Random Sodium Ur Random Potassium Ur Random Chloride Stool Occult Blood Blood Type Antibody Screen 12/20/19 12/20/19 12/20/19 13:17 13:17 14:44 WBC RBC Hgb Hct MCV MCH MCHC RDW Plt Count MPV Absolute Neuts (auto) Neutrophils % Lymphocytes % Monocytes % Eosinophils % Basophils % Nucleated RBC % PT with INR INR PTT (Actin FS) Sodium 135 L Potassium 5.5 H Chloride 108 H Carbon Dioxide 14 L Anion Gap 13 BUN 79.0 H Creatinine 7.4 H* Est GFR (CKD-EPI)AfAm 7.36 Est GFR (CKD-EPI)NonAf 6.35 Random Glucose 206 H Calcium 8.2 L Total Bilirubin 0.2 AST 9 L ALT 10 L Alkaline Phosphatase 77 Total Protein 6.1 L Albumin 1.7 L Beta HCG, Quant Urine Color Urine Appearance Urine pH Ur Specific [place] Urine Protein Urine Glucose (UA) Urine Ketones Urine Blood Urine Nitrite Urine Bilirubin Urine Urobilinogen Ur Leukocyte Esterase Urine WBC (Auto) Urine RBC (Auto) Urine Casts (Auto) U Epithel Cells (Auto) U Sm Round Cell (Auto) Urine Bacteria (Auto) Ur Random Creatinine Ur Random Sodium Ur Random Potassium Ur Random Chloride Stool Occult Blood Negative Blood Type O POSITIVE Antibody Screen Negative 12/20/19 12/20/19 15:21 15:21 WBC RBC Hgb Hct MCV MCH MCHC RDW Plt Count MPV Absolute Neuts (auto) Neutrophils % Lymphocytes % Monocytes % Eosinophils % Basophils % Nucleated RBC % PT with INR INR PTT (Actin FS) Sodium Potassium Chloride Carbon Dioxide Anion Gap BUN Creatinine Est GFR (CKD-EPI)AfAm Est GFR (CKD-EPI)NonAf Random Glucose Calcium Total Bilirubin AST ALT Alkaline Phosphatase Total Protein Albumin Beta HCG, Quant Urine Color Yellow Urine Appearance Clear Urine pH 6.0 Ur Specific [place] 1.015 Urine Protein 4+ H Urine Glucose (UA) 2+ H Urine Ketones Negative Urine Blood 3+ H Urine Nitrite Negative Urine Bilirubin Negative Urine Urobilinogen 0.2 Ur Leukocyte Esterase Trace Urine WBC (Auto) 61 Urine RBC (Auto) 318 Urine Casts (Auto) 1 U Epithel Cells (Auto) >36 U Sm Round Cell (Auto) None Urine Bacteria (Auto) 269 Ur Random Creatinine 42.0 Ur Random Sodium 47 Ur Random Potassium 27.0 Ur Random Chloride 40 L Stool Occult Blood Blood Type Antibody Screen ASSESSMENT/PLAN: Pt is a 39yo female with PMH of COVID-19(3 months ago), ADPCKD, +HPV, newly diagnosed cervical CA, IDDM, recurrent fall-walks with a cane, bronchial asthma, laser eye surgery, depression, anxiety and bipolar disorder who presented to ED with lower abd pain of 1 month duration associated with vaginal discharge and recent diagnosis of cervical cancer. # VICENTE due to APKD - Cr. 7.4 - Nephrology consulted, for permacath placement tomorrow - LR @83 # Hyperkalemia - Treated with hyperkalemia cocktail - F/u chem in AM # Diarrhea - IVF - Ova and parasite - Stool culture - Can consider test for c. diff but not fully supported by hx # Cervical CA - Prior to presentation, pt scheduled for 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 surgery November - Consult 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 as appropriate - Tylenol for pain - F/u AM CBC and transfuse for hb < 7 # HTN - Needs med rec when possible and restart home meds # DM - BGM ACHS - ISS # Asthma - Currently using rescue inhaler 2x per day - Needs med rec when possible and restart home meds # ADPKD - c/o RIGHT flank pain, can offer Tylenol - Cont. to monitor # FEN - LR - Monitor and replace as appropriate - NPO after midnight # DVT ppx - SCD # Disposition - Admit to med/surg Visit type - Emergency Visit Emergency Visit: Yes ED Registration Date: 12/20/19 Care time: The patient presented to the Emergency Department on the above date and was hospitalized for further evaluation of their emergent condition. - New Patient This patient is new to me today: Yes Date on this admission: 12/21/19 - Critical Care Critical Care patient: No ATTENDING PHYSICIAN STATEMENT I saw and evaluated the patient. I reviewed the resident's note and discussed the case with the resident. I agree with the resident's findings and plan as documented. SUBJECTIVE: OBJECTIVE: ASSESSMENT AND PLAN:
[2019-12-20] MEDS ORDERED: CALCIUM GLUCONATE 10% - 1,000 MG/10 ML VIAL ONE (22:24)
[2019-12-20] MEDS ORDERED: DEXTROSE 50%-WATER 25 GM/50 ML DISP.SYRIN ONE (22:25)
[2019-12-20 22:37] LABS: BLOOD UREA NITROGEN 77.8 mg/dL (7-18); CALCIUM 8.2 mg/dL (8.5-10.1); POTASSIUM 5.5 mmol/L (3.5-5.1)
[2019-12-20 22:49] LABS: CREATININE 7.7 mg/dL (0.55-1.3)
[2019-12-21] MEDS: SODIUM BICARBONATE 8.4% - 75 MEQ in SODIUM CHLORIDE 0.45% 1,000 ML IV SCH (00:58)
[2019-12-21] MEDS: LACTATED RINGERS SOLUTION 1,000 ML IV SCH ×3 (01:06→22:42)
[2019-12-21] MEDS: MORPHINE SULFATE 2 MG/ML VIAL IVPUSH PRN (01:25)
[2019-12-21 01:40] VITALS: BMI 39.2
--- NOTE | 2019-12-21 04:18 | HP ---
CHIEF COMPLAINT: PCP: HISTORY OF PRESENT ILLNESS: ER course was notable for: (1) (2) (3) Recent Travel: PAST MEDICAL HISTORY: PAST SURGICAL HISTORY: Social History: Smoking: Alcohol: Drugs: Allergies No Known Allergies Allergy (Verified 12/20/19 12:45) HOME MEDICATIONS: Home Medications Medication Instructions Recorded Albuterol 0.083% Nebulizer Sarina 1 neb NEB Q6H PRN 10/06/17 [Ventolin 0.083% Nebulizer Soln -] Budesonide/Formeterol Fumarate 1 inh PO DAILY 10/06/17 [SYMBICORT 80/4.5mcg -] Insulin Glargine,Hum.rec.anlog 50 unit SQ BID 10/06/17 [Lantus] Insulin Lispro [Humalog] 30 unit SQ TID 04/18/18 Esomeprazole Magnesium [Nexium 40 mg PO DAILY 05/28/18 24Hr] Gabapentin [Neurontin] 600 mg PO TID 10/09/19 Sevelamer Carbonate [Renvela -] 800 mg PO TIDCM #90 tab 10/12/19 Dulaglutide [Trulicity] 1.5 mg SQ Q7D 11/18/19 Losartan Potassium 50 mg PO DAILY 11/18/19 Paroxetine HCl [Paxil -] 10 mg PO DAILY 11/18/19 Docusate Sodium [Colace -] 100 mg PO TID capsule 11/23/19 Sodium Bicarbonate - 1,300 mg PO BID tablet 11/23/19 REVIEW OF SYSTEMS CONSTITUTIONAL: Absent: fever, chills, diaphoresis, generalized weakness, malaise, loss of appetite, weight change HEENT: Absent: rhinorrhea, nasal congestion, throat pain, throat swelling, difficulty swallowing, mouth swelling, ear pain, eye pain, visual changes CARDIOVASCULAR: Absent: chest pain, syncope, palpitations, irregular heart rate, lightheadedness, peripheral edema RESPIRATORY: Absent: cough, shortness of breath, dyspnea with exertion, orthopnea, wheezing, stridor, hemoptysis GASTROINTESTINAL: Absent: abdominal pain, abdominal distension, nausea, vomiting, diarrhea, constipation, melena, hematochezia GENITOURINARY: Absent: dysuria, frequency, urgency, hesitancy, hematuria, flank pain, genital pain MUSCULOSKELETAL: Absent: myalgia, arthralgia, joint swelling, back pain, neck pain SKIN: Absent: rash, itching, pallor HEMATOLOGIC/IMMUNOLOGIC: Absent: easy bleeding, easy bruising, lymphadenopathy, frequent infections ENDOCRINE: Absent: unexplained weight gain, unexplained weight loss, heat intolerance, cold intolerance NEUROLOGIC: Absent: headache, focal weakness or paresthesias, dizziness, unsteady gait, seizure, mental status changes, bladder or bowel incontinence PSYCHIATRIC: Absent: anxiety, depression, suicidal or homicidal ideation, hallucinations. PHYSICAL EXAMINATION Vital Signs - 24 hr 12/20/19 12/20/19 12/20/19 12:48 16:51 21:54 Temperature 98.9 F 98.0 F Pulse Rate 94 H Pulse Rate [ 92 H 89 Apical] Respiratory 20 19 20 Rate Blood Pressure 117/49 L Blood Pressure 119/61 133/53 L [Right Arm] O2 Sat by Pulse 99 100 99 Oximetry (%) 12/20/19 12/21/19 22:15 01:00 Temperature 98.9 F Pulse Rate 98 H Pulse Rate [ Apical] Respiratory 20 Rate Blood Pressure 128/61 Blood Pressure [Right Arm] O2 Sat by Pulse 100 100 Oximetry (%) GENERAL: Awake, alert, and fully oriented, in no acute distress. HEAD: Normal with no signs of trauma. EYES: Pupils equal, round and reactive to light, extraocular movements intact, sclera anicteric, conjunctiva clear. No lid lag. EARS, NOSE, THROAT: Ears normal, nares patent, oropharynx clear without exudates . Moist mucous membranes. NECK: Normal range of motion, supple without lymphadenopathy, JVD, or masses. LUNGS: Breath sounds equal, clear to auscultation bilaterally. No wheezes, and no crackles. No accessory muscle use. HEART: Regular rate and rhythm, normal S1 and S2 without murmur, rub or gallop. ABDOMEN: Soft, nontender, not distended, normoactive bowel sounds, no guarding, no rebound, no masses. No hepatomegaly or splenomegaly. MUSCULOSKELETAL: Normal range of motion at all joints. No bony deformities or tenderness. No CVA tenderness. UPPER EXTREMITIES: 2+ pulses, warm, well-perfused. No cyanosis. No clubbing. No peripheral edema. LOWER EXTREMITIES: 2+ pulses, warm, well-perfused. No calf tenderness. No peripheral edema. NEUROLOGICAL: Cranial nerves II-XII intact. Normal speech. Normal gait. PSYCHIATRIC: Cooperative. Good eye contact. Appropriate mood and affect. SKIN: Warm, dry, normal turgor, no rashes or lesions noted, normal capillary refill. Laboratory Results - last 24 hr 12/20/19 12/20/19 12/20/19 13:07 13:17 13:17 WBC 15.4 H RBC 3.14 L Hgb 8.4 L Hct 26.5 L MCV 84.4 MCH 26.7 MCHC 31.6 L RDW 16.2 H Plt Count 277 MPV 7.7 Absolute Neuts (auto) 12.0 H Neutrophils % 77.8 Lymphocytes % 13.4 D Monocytes % 7.2 D Eosinophils % 1.0 D Basophils % 0.6 Nucleated RBC % 0 PT with INR 12.50 INR 1.06 PTT (Actin FS) 28.1 Sodium Potassium Chloride Carbon Dioxide Anion Gap BUN Creatinine Est GFR (CKD-EPI)AfAm Est GFR (CKD-EPI)NonAf Random Glucose Calcium Total Bilirubin AST ALT Alkaline Phosphatase Total Protein Albumin Beta HCG, Quant < 1.0 Urine Color Urine Appearance Urine pH Ur Specific [place] Urine Protein Urine Glucose (UA) Urine Ketones Urine Blood Urine Nitrite Urine Bilirubin Urine Urobilinogen Ur Leukocyte Esterase Urine WBC (Auto) Urine RBC (Auto) Urine Casts (Auto) U Epithel Cells (Auto) U Sm Round Cell (Auto) Urine Bacteria (Auto) Ur Random Creatinine Ur Random Sodium Ur Random Potassium Ur Random Chloride Stool Occult Blood Blood Type Antibody Screen 12/20/19 12/20/19 12/20/19 13:17 13:17 14:44 WBC RBC Hgb Hct MCV MCH MCHC RDW Plt Count MPV Absolute Neuts (auto) Neutrophils % Lymphocytes % Monocytes % Eosinophils % Basophils % Nucleated RBC % PT with INR INR PTT (Actin FS) Sodium 135 L Potassium 5.5 H Chloride 108 H Carbon Dioxide 14 L Anion Gap 13 BUN 79.0 H Creatinine 7.4 H* Est GFR (CKD-EPI)AfAm 7.36 Est GFR (CKD-EPI)NonAf 6.35 Random Glucose 206 H Calcium 8.2 L Total Bilirubin 0.2 AST 9 L ALT 10 L Alkaline Phosphatase 77 Total Protein 6.1 L Albumin 1.7 L Beta HCG, Quant Urine Color Urine Appearance Urine pH Ur Specific [place] Urine Protein Urine Glucose (UA) Urine Ketones Urine Blood Urine Nitrite Urine Bilirubin Urine Urobilinogen Ur Leukocyte Esterase Urine WBC (Auto) Urine RBC (Auto) Urine Casts (Auto) U Epithel Cells (Auto) U Sm Round Cell (Auto) Urine Bacteria (Auto) Ur Random Creatinine Ur Random Sodium Ur Random Potassium Ur Random Chloride Stool Occult Blood Negative Blood Type O POSITIVE Antibody Screen Negative 12/20/19 12/20/19 12/20/19 15:21 15:21 21:46 WBC RBC Hgb Hct MCV MCH MCHC RDW Plt Count MPV Absolute Neuts (auto) Neutrophils % Lymphocytes % Monocytes % Eosinophils % Basophils % Nucleated RBC % PT with INR INR PTT (Actin FS) Sodium 137 Potassium 5.5 H Chloride 108 H Carbon Dioxide 15 L Anion Gap 15 BUN 77.8 H Creatinine 7.7 H* Est GFR (CKD-EPI)AfAm 7.02 Est GFR (CKD-EPI)NonAf 6.05 Random Glucose 111 H Calcium 8.2 L Total Bilirubin AST ALT Alkaline Phosphatase Total Protein Albumin Beta HCG, Quant Urine Color Yellow Urine Appearance Clear Urine pH 6.0 Ur Specific [place] 1.015 Urine Protein 4+ H Urine Glucose (UA) 2+ H Urine Ketones Negative Urine Blood 3+ H Urine Nitrite Negative Urine Bilirubin Negative Urine Urobilinogen 0.2 Ur Leukocyte Esterase Trace Urine WBC (Auto) 61 Urine RBC (Auto) 318 Urine Casts (Auto) 1 U Epithel Cells (Auto) >36 U Sm Round Cell (Auto) None Urine Bacteria (Auto) 269 Ur Random Creatinine 42.0 Ur Random Sodium 47 Ur Random Potassium 27.0 Ur Random Chloride 40 L Stool Occult Blood Blood Type Antibody Screen ASSESSMENT/PLAN: ATTENDING PHYSICIAN STATEMENT I saw and evaluated the patient. I reviewed the resident's note and discussed the case with the resident. I agree with the resident's findings and plan as documented. SUBJECTIVE: OBJECTIVE: ASSESSMENT AND PLAN:
[2019-12-21] MEDS ORDERED: ACETAMINOPHEN 325 MG TABLET (FP) PO PRN (05:45)
[2019-12-21] MEDS ORDERED: ALBUTEROL SO4 HFA INHALER IH PRN (06:20)
[2019-12-21] MEDS: INSULIN SLIDING SCALE (NOVOLOG) 1 VIAL SQ SCH ×4 (06:24→21:29)
[2019-12-21 08:10] LABS: BASO % 0.6 % (0-2.0); EOS % 0.9 % (0-4.5); HEMOGLOBIN 7.9 GM/dL (10.7-15.3); LYMPH % 12.9 % (8-40); MCH 26.8 pg (25.7-33.7); MCHC 31.5 g/dl (32.0-36.0); MEAN CELL VOLUME 84.9 fl (80-96); MEAN PLT VOLUME 7.8 fl (7.5-11.1); MONO % 8.7 % (3.8-10.2); NEUT % 76.9 % (42.8-82.8); PLATELET COUNT 290 K/MM3 (134-434); RBC 2.94 M/mm3 (3.60-5.2); RDW 16.2 % (11.6-15.6); WHITE BLOOD COUNT 15.8 K/mm3 (4.0-10.0)
[2019-12-21 08:37] LABS: ALBUMIN 1.6 g/dl (3.4-5.0); BILIRUBIN,TOTAL 0.2 mg/dL (0.2-1); CALCIUM 8.5 mg/dL (8.5-10.1); MAGNESIUM 1.8 mg/dL (1.8-2.4); POTASSIUM 5.2 mmol/L (3.5-5.1); TOT PROT 5.8 g/dl (6.4-8.2)
[2019-12-21 09:07] LABS: PHOSPHOROUS 8.5 mg/dL (2.5-4.9)
[2019-12-21 09:09] LABS: CREATININE 7.8 mg/dL (0.55-1.3)
--- NOTE | 2019-12-21 09:20 | EKG ---
Test Reason : Blood Pressure : / mmHG Vent. Rate : 080 BPM Atrial Rate : 080 BPM P-R Int : 164 ms QRS Dur : 082 ms QT Int : 388 ms P-R-T Axes : 035 -18 101 degrees QTc Int : 447 ms NORMAL SINUS RHYTHM POSSIBLE LEFT ATRIAL ENLARGEMENT NONSPECIFIC T WAVE ABNORMALITY ABNORMAL ECG WHEN COMPARED WITH ECG OF 17-NOV-2019 20:53, NONSPECIFIC T WAVE ABNORMALITY, IMPROVED IN ANTERIOR LEADS Confirmed by MD TANI, WALLY ([id number]) on 12/21/2019 9:20:12 AM Referred By: Confirmed By:WALLY FREIRE MD
[2019-12-21] MEDS ORDERED: SODIUM BICARBONATE 650 MG TABLET PO SCH (10:00)
--- NOTE | 2019-12-21 12:18 | PN ---
Progress Note, Physician History of Present Illness: Pt seen and examined at bedside. SHe is awake and alert. She denies shortness of breath. she feels that her abd pain is improved. - Current Medication List Current Medications: Active Medications Acetaminophen (Tylenol -) 650 mg PO Q4H PRN PRN Reason: pain of 3-6 Albuterol Sulfate (Ventolin Hfa Inhaler -) 1 puff IH Q4H PRN PRN Reason: ASTHMA Lactated Ringer's (Lactated Ringers Solution) 1,000 mls @ 83 mls/hr IV ASDIR UMBERTO Last Admin: 12/21/19 01:06 Dose: 83 mls/hr Documented by: Insulin Aspart (Novolog Vial Sliding Scale -) 1 vial SQ ACHS UMBERTO; Protocol Last Admin: 12/21/19 11:39 Dose: Not Given Documented by: Morphine Sulfate (Morphine Sulfate) 2 mg IVPUSH Q4H PRN PRN Reason: PAIN LEVEL 6-10 Last Admin: 12/21/19 01:25 Dose: 2 mg Documented by: Sevelamer Carbonate (Renvela -) 800 mg PO TIDCM UMBERTO Sodium Bicarbonate (Sodium Bicarbonate -) 1,300 mg PO TID UMBERTO Sodium Zirconium Cyclosilicate (Lokelma) 10 gm PO DAILY UMBERTO - Objective Vital Signs: Vital Signs Temperature 98.3 F 12/21/19 05:00 Pulse Rate 87 12/21/19 05:00 Respiratory Rate 18 12/21/19 05:00 Blood Pressure 93/76 12/21/19 05:00 O2 Sat by Pulse Oximetry (%) 99 12/21/19 05:00 Constitutional: Yes: Calm Eyes: Yes: Conjunctiva Clear HENT: Yes: Atraumatic Neck: Yes: Supple Cardiovascular: Yes: S1, S2 Respiratory: Yes: CTA Bilaterally Gastrointestinal: Yes: Soft Genitourinary: Yes: WNL Musculoskeletal: Yes: WNL Edema: LLE: Trace, RLE: Trace Neurological: Yes: Oriented Psychiatric: Yes: Oriented Labs: CBC, BMP 12/21/19 07:00 12/21/19 07:00 INR, PTT INR 1.06 (0.83-1.09) 12/20/19 13:17 Problem List - Problems (1) Acute renal failure Code(s): N17.9 - ACUTE KIDNEY FAILURE, UNSPECIFIED (2) CKD (chronic kidney disease) Code(s): N18.9 - CHRONIC KIDNEY DISEASE, UNSPECIFIED Assessment/Plan Current Medications Generic Name Dose Route Start Last Admin Trade Name Freq PRN Reason Stop Dose Admin Acetaminophen 650 mg 12/21/19 05:45 Tylenol - PO Q4H PRN pain of 3-6 Albuterol Sulfate 1 puff 12/21/19 06:20 Ventolin Hfa Inhaler - IH Q4H PRN ASTHMA Lactated Ringer's 1,000 mls @ 83 mls/hr 12/20/19 22:00 12/21/19 01:06 Lactated Ringers Solution IV 83 mls/hr ASDIR UMBERTO Administration Insulin Aspart 1 vial 12/21/19 07:00 12/21/19 11:39 Novolog Vial Sliding Scale - SQ Not Given ACHS UMBERTO Protocol Morphine Sulfate 2 mg 12/21/19 01:17 12/21/19 01:25 Morphine Sulfate IVPUSH 2 mg Q4H PRN Administration PAIN LEVEL 6-10 Sevelamer Carbonate 800 mg 12/21/19 12:00 Renvela - PO TIDCM UMBERTO Sodium Bicarbonate 1,300 mg 12/21/19 12:15 Sodium Bicarbonate - PO TID UMBERTO Sodium Zirconium Cyclosilicate 10 gm 12/21/19 12:15 Lokelma PO DAILY UMBERTO Impression 1. Acute on chronic renal insufficiency 2. Chronic anemia 3. hyperkalemia 4. Metabolic acidosis 5. DM 6. abdominal pain 7. polycystic kidney disease 8. cervical cancer Plan - d/c fluids - renal function is worse - will give lokelma - restart po bicarb and increase dose - discussed HD with pt - spoke to vascular, they can place shiley tomorrow morning - called and discussed with primary instrument sterilizer - will need outpt HD placement
[2019-12-21] MEDS: SODIUM ZIRCONIUM CYCLOSILICATE (LOKELMA) 5 GM PACKET PO SCH (12:35)
[2019-12-21] MEDS: SODIUM BICARBONATE 650 MG TABLET PO SCH ×3 (12:35→21:15)
[2019-12-21] MEDS: SEVELAMER CARBONATE 800 MG TAB (FP) PO SCH ×2 (12:35→18:06)
--- NOTE | 2019-12-21 12:45 | SPA.PREOP ---
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 Make NPO after midnight except po meds 2. GI/DVT PPX 3. Medical optimization / clearance 4. Type and Screen 5. Tight glycemic control 6. Consent to be obtained by surgeon after risks, benefits and alternatives discussed with patient and or Health Care Proxy. Problem List - Problems (1) Acute renal failure Code(s): N17.9 - ACUTE KIDNEY FAILURE, UNSPECIFIED (2) Asthma Code(s): J45.909 - UNSPECIFIED ASTHMA, UNCOMPLICATED (3) Morbid obesity Code(s): E66.01 - MORBID (SEVERE) OBESITY DUE TO EXCESS CALORIES (4) PCK (polycystic kidney disease) Code(s): Q61.3 - POLYCYSTIC KIDNEY, UNSPECIFIED (5) Diabetes mellitus Code(s): E11.9 - TYPE 2 DIABETES MELLITUS WITHOUT COMPLICATIONS Qualifiers: Diabetes mellitus type: type 1 Diabetes mellitus complication status: with hyperglycemia Qualified Code(s): E10.65 - Type 1 diabetes mellitus with hyperglycemia Visit type - Case Type Case Type: ED Admission - Emergency Emergency Visit: Yes ED Registration Date: 12/20/19 Care time: The patient presented to the Emergency Department on the above date and was hospitalized for further evaluation of their emergent condition. - New patient This patient is new to me today: Yes Date on this admission: 12/21/19
--- NOTE | 2019-12-21 15:50 | CONS ---
DATE OF CONSULTATION: DATE OF DICTATION: 12/21/2019 Patient is a 39-year-old female with past history of anemia, diabetes, asthma, depression, anxiety, adult polycystic kidney disease, recently diagnosed with cervical cancer. She was found to have worsening renal function. She underwent a CAT scan of her abdomen and pelvis, and that revealed a mild right perirenal soft tissue stranding laterally due to obstruction, numerous bilateral renal cysts suggestive of polycystic kidney disease, several bilateral renal stones. There was enlargement of the periaortic lymph node. There was also a large spleen. There was a 1.5-cm left adrenal adenoma. There was also a 3-cm left adnexal cyst. The patient is to undergo a surgical procedure in a.m. This is going to require preop stent placement. Will recommend cystoscopy and bilateral JJ stents prior to the procedure. Will be communications director for procedure. ALCON DARDEN M.D. [id number]
[2019-12-21] MEDS ORDERED: MAGNESIUM CITRATE 300 ML BOTTLE PO ONE (16:15)
[2019-12-21 16:32] LABS: BLOOD UREA NITROGEN 78.3 mg/dL (7-18); CALCIUM 8.1 mg/dL (8.5-10.1); POTASSIUM 5.1 mmol/L (3.5-5.1)
[2019-12-21 17:54] LABS: CREATININE 7.8 mg/dL (0.55-1.3)
--- NOTE | 2019-12-21 18:00 | PN ---
Teaching Attending Note Name of Resident: Erick Shell ATTENDING PHYSICIAN STATEMENT I saw and evaluated the patient. I reviewed the resident's note and discussed the case with the resident. I agree with the resident's findings and plan as documented. SUBJECTIVE: Mild RLQ and suprapubic tenderness. Bloody PV discharge. No fever/chills. No further diarrhea. OBJECTIVE: Afebrile, Hemodynamically stable Last Vital Signs Temp Pulse Resp BP Pulse Ox 98.2 F 89 18 141/79 97 12/21/19 14:00 12/21/19 14:00 12/21/19 14:12/21/19 14:12/21/19 14:00 HEENT - Atraumatic, Normocephalic. Heart - S1, S2, RRR Lungs - clear to auscultation Abdomen - High BMI. Soft, non-tender. Bowel Sounds normal. Extremities - no edema, no calf tenderness. Neuro - AAO x 3. Tone/Power normal all extremities. Laboratory Results - last 24 hr 12/20/19 12/20/19 12/21/19 15:21 21:46 06:20 WBC RBC Hgb Hct MCV MCH MCHC RDW Plt Count MPV Absolute Neuts (auto) Neutrophils % Lymphocytes % Monocytes % Eosinophils % Basophils % Nucleated RBC % Sodium 137 Potassium 5.5 H Chloride 108 H Carbon Dioxide 15 L Anion Gap 15 BUN 77.8 H Creatinine 7.7 H* Est GFR (CKD-EPI)AfAm 7.02 Est GFR (CKD-EPI)NonAf 6.05 POC Glucometer 94 Random Glucose 111 H Calcium 8.2 L Phosphorus Magnesium Iron TIBC Iron Saturation Unsaturated IBC Ferritin Total Bilirubin AST ALT Alkaline Phosphatase Total Protein Albumin Vitamin B12 Serum Folate Urine Color Yellow Urine Appearance Clear Urine pH 6.0 Ur Specific [place] 1.015 Urine Protein 4+ H Urine Glucose (UA) 2+ H Urine Ketones Negative Urine Blood 3+ H Urine Nitrite Negative Urine Bilirubin Negative Urine Urobilinogen 0.2 Ur Leukocyte Esterase Trace Urine WBC (Auto) 61 Urine RBC (Auto) 318 Urine Casts (Auto) 1 U Epithel Cells (Auto) >36 U Sm Round Cell (Auto) None Urine Bacteria (Auto) 269 12/21/19 12/21/19 12/21/19 07:00 07:00 11:36 WBC 15.8 H RBC 2.94 L Hgb 7.9 L Hct 25.0 L MCV 84.9 MCH 26.8 MCHC 31.5 L RDW 16.2 H Plt Count 290 MPV 7.8 Absolute Neuts (auto) 12.1 H Neutrophils % 76.9 Lymphocytes % 12.9 Monocytes % 8.7 Eosinophils % 0.9 Basophils % 0.6 Nucleated RBC % 0 Sodium 138 Potassium 5.2 H Chloride 110 H Carbon Dioxide 16 L Anion Gap 11 BUN 79.0 H Creatinine 7.8 H* Est GFR (CKD-EPI)AfAm 6.91 Est GFR (CKD-EPI)NonAf 5.96 POC Glucometer 85 Random Glucose 90 Calcium 8.5 Phosphorus 8.5 H Magnesium 1.8 Iron 41 L TIBC 91 L Iron Saturation 45 H Unsaturated IBC 50 L Ferritin 428.4 H Total Bilirubin 0.2 AST 8 L ALT 9 L Alkaline Phosphatase 68 Total Protein 5.8 L Albumin 1.6 L Vitamin B12 493 Serum Folate 6 Urine Color Urine Appearance Urine pH Ur Specific [place] Urine Protein Urine Glucose (UA) Urine Ketones Urine Blood Urine Nitrite Urine Bilirubin Urine Urobilinogen Ur Leukocyte Esterase Urine WBC (Auto) Urine RBC (Auto) Urine Casts (Auto) U Epithel Cells (Auto) U Sm Round Cell (Auto) Urine Bacteria (Auto) 12/21/19 12/21/19 15:10 16:49 WBC RBC Hgb Hct MCV MCH MCHC RDW Plt Count MPV Absolute Neuts (auto) Neutrophils % Lymphocytes % Monocytes % Eosinophils % Basophils % Nucleated RBC % Sodium 138 Potassium 5.1 Chloride 109 H Carbon Dioxide 14 L Anion Gap 15 BUN 78.3 H Creatinine 7.8 H* Est GFR (CKD-EPI)AfAm 6.91 Est GFR (CKD-EPI)NonAf 5.96 POC Glucometer 165 Random Glucose 188 H Calcium 8.1 L Phosphorus Magnesium Iron TIBC Iron Saturation Unsaturated IBC Ferritin Total Bilirubin AST ALT Alkaline Phosphatase Total Protein Albumin Vitamin B12 Serum Folate Urine Color Urine Appearance Urine pH Ur Specific [place] Urine Protein Urine Glucose (UA) Urine Ketones Urine Blood Urine Nitrite Urine Bilirubin Urine Urobilinogen Ur Leukocyte Esterase Urine WBC (Auto) Urine RBC (Auto) Urine Casts (Auto) U Epithel Cells (Auto) U Sm Round Cell (Auto) Urine Bacteria (Auto) Current Medications Generic Name Dose Route Start Last Admin Trade Name Freq PRN Reason Stop Dose Admin Acetaminophen 650 mg 12/21/19 05:45 Tylenol - PO Q4H PRN pain of 3-6 Albuterol Sulfate 1 puff 12/21/19 06:20 Ventolin Hfa Inhaler - IH Q4H PRN ASTHMA Lactated Ringer's 1,000 mls @ 83 mls/hr 12/20/19 22:00 12/21/19 14:13 Lactated Ringers Solution IV 83 mls/hr ASDIR UMBERTO Administration Insulin Aspart 1 vial 12/21/19 07:00 12/21/19 17:08 Novolog Vial Sliding Scale - SQ Not Given ACHS [facility] Protocol Morphine Sulfate 2 mg 12/21/19 01:17 12/21/19 01:25 Morphine Sulfate IVPUSH 2 mg Q4H PRN Administration PAIN LEVEL 6-10 Sevelamer Carbonate 800 mg 12/21/19 12:00 12/21/19 12:35 Renvela - PO 800 mg TIDCM UMBERTO Administration Sodium Bicarbonate 1,300 mg 12/21/19 12:15 12/21/19 14:11 Sodium Bicarbonate - PO 1,300 mg TID UMBERTO Administration Sodium Phosphate 133 ml 12/22/19 05:00 Fleet Adult Rectal Enema - RC 12/22/19 08:01 Q3H UMBERTO Sodium Zirconium Cyclosilicate 10 gm 12/21/19 12:15 12/21/19 12:35 Lokelma PO 10 gm DAILY UMBERTO Administration Home Medications Medication Instructions Recorded Albuterol 0.083% Nebulizer Sarina 1 neb NEB Q6H PRN 10/06/17 [Ventolin 0.083% Nebulizer Soln -] Budesonide/Formeterol Fumarate 1 inh PO DAILY 10/06/17 [SYMBICORT 80/4.5mcg -] Insulin Glargine,Hum.rec.anlog 50 unit SQ BID 10/06/17 [Lantus] Insulin Lispro [Humalog] 30 unit SQ TID 04/18/18 Esomeprazole Magnesium [Nexium 40 mg PO DAILY 05/28/18 24Hr] Gabapentin [Neurontin] 600 mg PO TID 10/09/19 Sevelamer Carbonate [Renvela -] 800 mg PO TIDCM #90 tab 10/12/19 Dulaglutide [Trulicity] 1.5 mg SQ Q7D 11/18/19 Losartan Potassium 50 mg PO DAILY 11/18/19 Paroxetine HCl [Paxil -] 10 mg PO DAILY 11/18/19 Docusate Sodium [Colace -] 100 mg PO TID capsule 11/23/19 Sodium Bicarbonate - 1,300 mg PO BID tablet 11/23/19 ASSESSMENT AND PLAN: 39 year old female with history of ADPCKD, Chronic Anemia, Cervical CA (scheduled GYNONC procedure 12/21) presented to ED with worsening abdominal pain, and bloody vaginal discharge. CT A/P - subpleural groundglass opacities, enlarged periaortic retroperitoneal LNs, Stable adrenal ademona, Mild R hydronephrosis, bilateral renal cysts 1. Cervical Cancer Scheduled by Dr. Wall for Gyne procedure 12/21, service contacted. 2. VICENTE on CKD4/5 secondary to Adult Polycystic Kidney Disease with Hyperkalemia and Metabolic Acidosis Likely progression to HD s/p Lokelma Bicarb dose increased For Permacath placement in AM and initiation on HD as per Nephrology 3. DM 2 - Glargine, Lispro, Trulicity held as patient will be NPO from [place]. Maintain on Novolog sliding scale. 4. Bipolar Disorder - Stable, continue Paroxetine. 5. HTN - Losartan held due to VICENTE on CKD with hyperkalemia. 6. Mild R Hydronephrosis with some monique-renal stranding - seen by Urology - recommend cystoscopy and bilateral JJ stents prior to Gyne procedure 12/21. DVT Px - SCDs. Heparin/Lovenox held due to bloody PV discharge.
[2019-12-21] MEDS ORDERED: SODIUM BICARBONATE 8.4% 50 MEQ/50 ML VIAL IVPUSH ONE ×2 (18:30→20:00)
[2019-12-21] MEDS ORDERED: ALBUTEROL SO4 0.083% IH SOL 2.5 MG/3 ML VIAL.NEB. NEB PRN (18:55)
--- NOTE | 2019-12-21 19:01 | PN ---
Physical Exam: SUBJECTIVE: Patient seen and examined at bedside. Patient appears to be in mild distress. The patient endorses mild vaginal discharge with bloody streaks. Patient denies any episodes of diarrhea overnight. Patient endorses RLQ and suprapubic tenderness upon palpation. Gyno staging for CA tomorrow 12/22/19 GENERAL: The patient is awake, alert, and fully oriented, in mild distress LUNGS: Breath sounds equal, clear to auscultation bilaterally, no wheezes, no crackles, no accessory muscle use. HEART: Regular rate and rhythm, S1, S2 without murmur, rub or gallop. OBJECTIVE: Vital Signs Period Temp Pulse Resp BP Sys/Farah Pulse Ox Last 24 Hr 98.1 F-98.9 F 87-98 18-20 93-153/53-83 97-100 ABDOMEN: Soft, TENDERNESS LOCALIZED TO THE RLQ AND SUPRAPUBIC AREA, nondistended, normoactive bowel sounds, no guarding, no rebound, no hepatosplenomegaly, no masses. EXTREMITIES: 2+ pulses, warm, well-perfused, no edema. Laboratory Results - last 24 hr 12/20/19 12/21/19 12/21/19 21:46 06:20 07:00 WBC 15.8 H RBC 2.94 L Hgb 7.9 L Hct 25.0 L MCV 84.9 MCH 26.8 MCHC 31.5 L RDW 16.2 H Plt Count 290 MPV 7.8 Absolute Neuts (auto) 12.1 H Neutrophils % 76.9 Lymphocytes % 12.9 Monocytes % 8.7 Eosinophils % 0.9 Basophils % 0.6 Nucleated RBC % 0 Sodium 137 Potassium 5.5 H Chloride 108 H Carbon Dioxide 15 L Anion Gap 15 BUN 77.8 H Creatinine 7.7 H* Est GFR (CKD-EPI)AfAm 7.02 Est GFR (CKD-EPI)NonAf 6.05 POC Glucometer 94 Random Glucose 111 H Calcium 8.2 L Phosphorus Magnesium Iron TIBC Iron Saturation Unsaturated IBC Ferritin Total Bilirubin AST ALT Alkaline Phosphatase Total Protein Albumin Vitamin B12 Serum Folate 12/21/19 12/21/19 12/21/19 07:00 11:36 15:10 WBC RBC Hgb Hct MCV MCH MCHC RDW Plt Count MPV Absolute Neuts (auto) Neutrophils % Lymphocytes % Monocytes % Eosinophils % Basophils % Nucleated RBC % Sodium 138 138 Potassium 5.2 H 5.1 Chloride 110 H 109 H Carbon Dioxide 16 L 14 L Anion Gap 11 15 BUN 79.0 H 78.3 H Creatinine 7.8 H* 7.8 H* Est GFR (CKD-EPI)AfAm 6.91 6.91 Est GFR (CKD-EPI)NonAf 5.96 5.96 POC Glucometer 85 Random Glucose 90 188 H Calcium 8.5 8.1 L Phosphorus 8.5 H Magnesium 1.8 Iron 41 L TIBC 91 L Iron Saturation 45 H Unsaturated IBC 50 L Ferritin 428.4 H Total Bilirubin 0.2 AST 8 L ALT 9 L Alkaline Phosphatase 68 Total Protein 5.8 L Albumin 1.6 L Vitamin B12 493 Serum Folate 6 12/21/19 16:49 WBC RBC Hgb Hct MCV MCH MCHC RDW Plt Count MPV Absolute Neuts (auto) Neutrophils % Lymphocytes % Monocytes % Eosinophils % Basophils % Nucleated RBC % Sodium Potassium Chloride Carbon Dioxide Anion Gap BUN Creatinine Est GFR (CKD-EPI)AfAm Est GFR (CKD-EPI)NonAf POC Glucometer 165 Random Glucose Calcium Phosphorus Magnesium Iron TIBC Iron Saturation Unsaturated IBC Ferritin Total Bilirubin AST ALT Alkaline Phosphatase Total Protein Albumin Vitamin B12 Serum Folate Active Medications Generic Name Dose Route Start Last Admin Trade Name Freq PRN Reason Stop Dose Admin Acetaminophen 650 mg 12/21/19 05:45 Tylenol - PO Q4H PRN pain of 3-6 Albuterol Sulfate 1 puff 12/21/19 06:20 Ventolin Hfa Inhaler - IH Q4H PRN ASTHMA Lactated Ringer's 1,000 mls @ 83 mls/hr 12/20/19 22:00 12/21/19 14:13 Lactated Ringers Solution IV 83 mls/hr ASDIR UMBERTO Administration Sodium Bicarbonate 100 meq/ 1,100 mls @ 50 mls/hr 12/21/19 19:00 Dextrose IV Q22H UMBERTO Insulin Aspart 1 vial 12/21/19 07:00 12/21/19 17:08 Novolog Vial Sliding Scale - SQ Not Given ACHS [facility] Protocol Morphine Sulfate 2 mg 12/21/19 01:17 12/21/19 01:25 Morphine Sulfate IVPUSH 2 mg Q4H PRN Administration PAIN LEVEL 6-10 Sevelamer Carbonate 800 mg 12/21/19 12:00 12/21/19 18:06 Renvela - PO 800 mg TIDCM UMBERTO Administration Sodium Bicarbonate 1,300 mg 12/21/19 12:15 12/21/19 14:11 Sodium Bicarbonate - PO 1,300 mg TID UMBERTO Administration Sodium Phosphate 133 ml 12/22/19 05:00 Fleet Adult Rectal Enema - RC 12/22/19 08:01 Q3H UMBERTO Sodium Zirconium Cyclosilicate 10 gm 12/21/19 12:15 12/21/19 12:35 Lokelma PO 10 gm DAILY UMBERTO Administration ASSESSMENT/PLAN: Ms Ramos is a 39F w a h/o Autosomal dominant Polycystic Kidney Disease, chronic anemia, Cervical CADPCKD, Chronic Anemia, Cervical CA with scheduled PENOLOGY TEACHER-ONC procedure 12/21 for staging. The patient arrived to the hospital for abnormal vaginal bleeds and RLQ and suprapubic tenderness. #Cervical Cancer - CT A/P revealed - subpleural groundglass opacities, enlarged periaortic retroperitoneal LNs, Stable adrenal ademona, Mild R hydronephrosis, bilateral renal cysts - Patient is to have Cervical CA staged for tomorrow #VICENTE secondary to Adult Polycystic Kidney Disease - Hyperkalemia - lokelca will follow up with labs - Per Dr. Lambert - kidney function tests improving will prioritize staging surgery over permacath #DM 2 - Continuing home medications - novolog sliding scale Glargine, Lispro, Trulicity held as patient will be NPO from OR. Maintain on Novolog sliding scale. #Bipolar Disorder - Stable, continue Paroxetine. #HTN - Losartan held due to VICENTE #DVT Px - SCDs Visit type - Emergency Visit Emergency Visit: Yes ED Registration Date: 12/20/19 Care time: The patient presented to the Emergency Department on the above date and was hospitalized for further evaluation of their emergent condition. - New Patient This patient is new to me today: Yes Date on this admission: 12/21/19 - Critical Care Critical Care patient: No - Discharge Referral Referred to [facility] Med P.C.: No ATTENDING PHYSICIAN STATEMENT I saw and evaluated the patient. I reviewed the resident's note and discussed the case with the resident. I agree with the resident's findings and plan as documented. SUBJECTIVE: OBJECTIVE: ASSESSMENT AND PLAN:
[2019-12-21] MEDS: SODIUM BICARBONATE 8.4% - 100 MEQ in DEXTROSE 5%-WATER - 1,000 ML IV SCH (20:26)
[2019-12-21] MEDS: DOCUSATE SODIUM 100 MG CAPSULE (FP) PO SCH (21:15)
[2019-12-21] MEDS: GABAPENTIN 300 MG CAPSULE PO SCH (21:15)
[2019-12-21] MEDS: BUDESONIDE/FORMETEROL FUMARATE 80/4.5 mcg INHALER IH SCH (21:16)
[2019-12-22] MEDS: SODIUM PHOSPHATE/NA BIPHOS 133 ML ENEMA RC SCH ×2 (04:31→08:30)
[2019-12-22] MEDS: DOCUSATE SODIUM 100 MG CAPSULE (FP) PO SCH ×3 (05:08→22:12)
[2019-12-22] MEDS: GABAPENTIN 300 MG CAPSULE PO SCH ×3 (05:09→22:13)
[2019-12-22] MEDS: SODIUM BICARBONATE 650 MG TABLET PO SCH ×3 (05:09→22:12)
[2019-12-22] MEDS: INSULIN SLIDING SCALE (NOVOLOG) 1 VIAL SQ SCH ×4 (06:08→22:13)
[2019-12-22] MEDS: LACTATED RINGERS SOLUTION 1,000 ML IV SCH ×2 (06:30→18:00)
[2019-12-22] MEDS: SEVELAMER CARBONATE 800 MG TAB (FP) PO SCH ×3 (08:07→17:58)
[2019-12-22 09:04] LABS: HEMATOCRIT 23.5 % (32.4-45.2); HEMOGLOBIN 7.5 GM/dL (10.7-15.3); MCH 26.7 pg (25.7-33.7); MCHC 31.7 g/dl (32.0-36.0); MEAN CELL VOLUME 84.4 fl (80-96); PLATELET COUNT 247 K/MM3 (134-434); RBC 2.79 M/mm3 (3.60-5.2); RDW 16.1 % (11.6-15.6); WHITE BLOOD COUNT 14.3 K/mm3 (4.0-10.0)
[2019-12-22 09:26] LABS: ALBUMIN 1.6 g/dl (3.4-5.0); ALK PHOS 72 U/L (45-117); ANION GAP 11 MMOL/L (8-16); BILIRUBIN,TOTAL 0.4 mg/dL (0.2-1); BLOOD UREA NITROGEN 75.6 mg/dL (7-18); CHLORIDE 109 mmol/L (98-107); CO2 19 mmol/L (21-32); GLUCOSE,RANDOM 122 mg/dL (74-106); SGOT/AST 9 U/L (15-37); SGPT/ALT 8 U/L (13-61); SODIUM 140 mmol/L (136-145); TOT PROT 5.8 g/dl (6.4-8.2)
[2019-12-22] MEDS: PARoxetine HCL 10 MG TABLET PO SCH (09:27)
[2019-12-22] MEDS: SODIUM ZIRCONIUM CYCLOSILICATE (LOKELMA) 5 GM PACKET PO SCH (09:27)
[2019-12-22] MEDS: PANTOPRAZOLE 40 MG TABLET PO SCH (09:27)
[2019-12-22] MEDS: BUDESONIDE/FORMETEROL FUMARATE 80/4.5 mcg INHALER IH SCH ×2 (09:29→22:13)
[2019-12-22 09:36] LABS: CREATININE 7.5 mg/dL (0.55-1.3); PHOSPHOROUS > 9.0 mg/dL (2.5-4.9)
[2019-12-22] MEDS ORDERED: MIDAZOLAM HCL 2 MG/2 ML SINGLE DOSE VIAL ONE (14:17)
[2019-12-22] MEDS ORDERED: PROPOFOL 20 ML ONE (14:17)
[2019-12-22] MEDS ORDERED: KETOROLAC TROMETHAMINE 30 MG/1 ML VIAL ONE (14:18)
[2019-12-22] MEDS ORDERED: ONDANSETRON 4 MG/2 ML VIAL ONE (14:18)
[2019-12-22] MEDS ORDERED: LIDOCAINE HCL/PF 2% SDV 5ML VIAL ONE (14:18)
[2019-12-22] MEDS ORDERED: DEXAMETHASONE SOD PHOSPHATE 4 MG/1 ML VIAL ONE (14:18)
--- NOTE | 2019-12-22 14:30 | PN ---
Progress Note, Physician History of Present Illness: Pt seen and examined at bedside. She is awake and alert. She denies shortness of breath. - Current Medication List Current Medications: Active Medications Acetaminophen (Tylenol -) 650 mg PO Q4H PRN PRN Reason: pain of 3-6 Albuterol Sulfate (Ventolin Hfa Inhaler -) 1 puff IH Q4H PRN PRN Reason: ASTHMA Budesonide/Formoterol Fumarate (Symbicort 80/4.5mcg -) 2 puff IH BID [facility] Last Admin: 12/22/19 09:29 Dose: 2 puff Documented by: Docusate Sodium (Colace -) 100 mg PO TID [facility] Last Admin: 12/22/19 13:01 Dose: Not Given Documented by: Gabapentin (Neurontin -) 600 mg PO TID [facility] Last Admin: 12/22/19 13:01 Dose: Not Given Documented by: Lactated Ringer's (Lactated Ringers Solution) 1,000 mls @ 83 mls/hr IV ASDIR [facility] Last Admin: 12/22/19 06:30 Dose: 83 mls/hr Documented by: Sodium Bicarbonate 100 meq/ (Dextrose) 1,100 mls @ 50 mls/hr IV Q22H [facility] Last Admin: 12/21/19 20:26 Dose: 50 mls/hr Documented by: Insulin Aspart (Novolog Vial Sliding Scale -) 1 vial SQ ACHS [facility]; Protocol Last Admin: 12/22/19 11:37 Dose: Not Given Documented by: Morphine Sulfate (Morphine Sulfate) 2 mg IVPUSH Q4H PRN PRN Reason: PAIN LEVEL 6-10 Last Admin: 12/21/19 01:25 Dose: 2 mg Documented by: Pantoprazole Sodium (Protonix -) 40 mg PO DAILY [facility] Last Admin: 12/22/19 09:27 Dose: Not Given Documented by: Paroxetine HCl (Paxil -) 10 mg PO DAILY [facility] Last Admin: 12/22/19 09:27 Dose: Not Given Documented by: Sevelamer Carbonate (Renvela -) 800 mg PO TIDCM [facility] Last Admin: 12/22/19 11:37 Dose: Not Given Documented by: Sodium Bicarbonate (Sodium Bicarbonate -) 1,300 mg PO TID [facility] Last Admin: 12/22/19 13:01 Dose: Not Given Documented by: Sodium Zirconium Cyclosilicate (Lokelma) 10 gm PO DAILY UMBERTO Last Admin: 12/22/19 09:27 Dose: Not Given Documented by: - Objective Vital Signs: Vital Signs Temperature 98.3 F 12/22/19 09:25 Pulse Rate 100 H 12/22/19 09:25 Respiratory Rate 22 H 12/22/19 09:25 Blood Pressure 112/66 12/22/19 09:25 O2 Sat by Pulse Oximetry (%) 97 12/22/19 09:25 Constitutional: Yes: Calm Eyes: Yes: Conjunctiva Clear HENT: Yes: Atraumatic Neck: Yes: Supple Cardiovascular: Yes: S1, S2 Respiratory: Yes: CTA Bilaterally Gastrointestinal: Yes: Normal Bowel Sounds, Soft Genitourinary: Yes: [place] Present Musculoskeletal: Yes: WNL Edema: No Integumentary: Yes: WNL Neurological: Yes: Oriented Psychiatric: Yes: Oriented Labs: CBC, BMP 12/22/19 07:35 12/22/19 07:35 INR, PTT INR 1.06 (0.83-1.09) 12/20/19 13:17 Problem List - Problems (1) Acute renal failure Code(s): N17.9 - ACUTE KIDNEY FAILURE, UNSPECIFIED (2) CKD (chronic kidney disease) Code(s): N18.9 - CHRONIC KIDNEY DISEASE, UNSPECIFIED Assessment/Plan Current Medications Generic Name Dose Route Start Last Admin Trade Name Freq PRN Reason Stop Dose Admin Acetaminophen 650 mg 12/21/19 05:45 Tylenol - PO Q4H PRN pain of 3-6 Albuterol Sulfate 1 puff 12/21/19 06:20 Ventolin Hfa Inhaler - IH Q4H PRN ASTHMA Budesonide/Formoterol Fumarate 2 puff 12/21/19 22:00 12/22/19 09:29 Symbicort 80/4.5mcg - IH 2 puff BID UMBERTO Administration Docusate Sodium 100 mg 12/21/19 22:00 12/22/19 13:01 Colace - PO Not Given TID UMBERTO Gabapentin 600 mg 12/21/19 22:00 12/22/19 13:01 Neurontin - PO Not Given TID UMBERTO Lactated Ringer's 1,000 mls @ 83 mls/hr 12/20/19 22:00 12/22/19 06:30 Lactated Ringers Solution IV 83 mls/hr ASDIR UMBERTO Administration Sodium Bicarbonate 100 meq/ 1,100 mls @ 50 mls/hr 12/21/19 19:00 12/21/19 20:26 Dextrose IV 50 mls/hr Q22H UMBERTO Administration Insulin Aspart 1 vial 12/21/19 07:00 12/22/19 11:37 Novolog Vial Sliding Scale - SQ Not Given ACHS UMBERTO Protocol Morphine Sulfate 2 mg 12/21/19 01:17 12/21/19 01:25 Morphine Sulfate IVPUSH 2 mg Q4H PRN Administration PAIN LEVEL 6-10 Pantoprazole Sodium 40 mg 12/22/19 10:00 12/22/19 09:27 Protonix - PO Not Given DAILY [facility] Paroxetine HCl 10 mg 12/22/19 10:00 12/22/19 09:27 Paxil - PO Not Given DAILY [facility] Sevelamer Carbonate 800 mg 12/21/19 12:00 12/22/19 11:37 Renvela - PO Not Given TIDCM [facility] Sodium Bicarbonate 1,300 mg 12/21/19 12:15 12/22/19 13:01 Sodium Bicarbonate - PO Not Given TID [facility] Sodium Zirconium Cyclosilicate 10 gm 12/21/19 12:15 12/22/19 09:27 Lokelma PO Not Given DAILY [facility] Impression 1. Acute on chronic renal insufficiency 2. Chronic anemia 3. hyperkalemia 4. Metabolic acidosis 5. DM 6. abdominal pain 7. polycystic kidney disease 8. cervical cancer Plan - cont bicarb - likely permacath tomorrow - follow repeat labs - cont phos binders - renal function mildly improved - will need outpt HD placement
--- NOTE | 2019-12-22 14:45 | PN ---
Physical Exam: SUBJECTIVE: Patient seen and examined at bedside. Patient looked to be more calm than yesterday. She is awaiting surgical staging of cancer via re ctosigmoidoscopy and uteroscopy. The patient reports mild lower abdominal tenderness. Patient denies further diarrhea. Patient endorses continued dark brown vaginal discharge. Dr. Enriquez called. Suggests bleeding as a result of cancer. OBJECTIVE: Vital Signs Period Temp Pulse Resp BP Sys/Farah Pulse Ox Last 24 Hr 98.1 F-99.8 F 93-100 18-22 112-162/66-92 97-98 GENERAL: The patient is awake, alert, and fully oriented, in no acute distress. LUNGS: Breath sounds equal, clear to auscultation bilaterally, no wheezes, no crackles, no accessory muscle use. HEART: Regular rate and rhythm, S1, S2 without murmur, rub or gallop. ABDOMEN: Soft, RLQ TENDERNESS, SUPRAPUBIC TENDERNESS EXTREMITIES: 2+ pulses, warm, well-perfused, no edema. SKIN: Warm, dry, normal turgor, no rashes or lesions noted Laboratory Results - last 24 hr 12/20/19 12/21/19 12/21/19 18:45 10:00 15:10 WBC RBC Hgb Hct MCV MCH MCHC RDW Plt Count MPV Sodium 138 Potassium 5.1 Chloride 109 H Carbon Dioxide 14 L Anion Gap 15 BUN 78.3 H Creatinine 7.8 H* Est GFR (CKD-EPI)AfAm 6.91 Est GFR (CKD-EPI)NonAf 5.96 POC Glucometer Random Glucose 188 H Calcium 8.1 L Phosphorus Magnesium Transferrin 100 L Total Bilirubin AST ALT Alkaline Phosphatase Total Protein Albumin Stool O & P Wet Mount COVID-19 (JAVON) Not detected O & P Permanent Slide Fungus Stain Fungal Cult Result 2 12/21/19 12/21/19 12/22/19 16:49 21:25 06:02 WBC RBC Hgb Hct MCV MCH MCHC RDW Plt Count MPV Sodium Potassium Chloride Carbon Dioxide Anion Gap BUN Creatinine Est GFR (CKD-EPI)AfAm Est GFR (CKD-EPI)NonAf POC Glucometer 165 145 138 Random Glucose Calcium Phosphorus Magnesium Transferrin Total Bilirubin AST ALT Alkaline Phosphatase Total Protein Albumin Stool O & P Wet Mount COVID-19 (JAVON) O & P Permanent Slide Fungus Stain Fungal Cult Result 2 12/22/19 12/22/19 12/22/19 07:35 07:35 09:25 WBC 14.3 H RBC 2.79 L Hgb 7.5 L Hct 23.5 L MCV 84.4 MCH 26.7 MCHC 31.7 L RDW 16.1 H Plt Count 247 MPV 8.0 Sodium 140 Potassium 5.0 Chloride 109 H Carbon Dioxide 19 L Anion Gap 11 BUN 75.6 H Creatinine 7.5 H* Est GFR (CKD-EPI)AfAm 7.24 Est GFR (CKD-EPI)NonAf 6.25 POC Glucometer Random Glucose 122 H Calcium 8.0 L Phosphorus > 9.0 H* Magnesium 2.0 Transferrin Total Bilirubin 0.4 AST 9 L ALT 8 L Alkaline Phosphatase 72 Total Protein 5.8 L Albumin 1.6 L Stool O & P Wet [place] Cancelled COVID-19 (JAVON) O & P Permanent Slide Cancelled Fungus Stain Cancelled Fungal Cult Result 2 Cancelled 12/22/19 11:32 WBC RBC Hgb Hct MCV MCH MCHC RDW Plt Count MPV Sodium Potassium Chloride Carbon Dioxide Anion Gap BUN Creatinine Est GFR (CKD-EPI)AfAm Est GFR (CKD-EPI)NonAf POC Glucometer 129 Random Glucose Calcium Phosphorus Magnesium Transferrin Total Bilirubin AST ALT Alkaline Phosphatase Total Protein Albumin Stool O & P Wet Mount COVID-19 (JAVON) O & P Permanent Slide Fungus Stain Fungal Cult Result 2 Active Medications Generic Name Dose Route Start Last Admin Trade Name Freq PRN Reason Stop Dose Admin Acetaminophen 650 mg 12/21/19 05:45 Tylenol - PO Q4H PRN pain of 3-6 Albuterol Sulfate 1 puff 12/21/19 06:20 Ventolin Hfa Inhaler - IH Q4H PRN ASTHMA Budesonide/Formoterol Fumarate 2 puff 12/21/19 22:00 12/22/19 09:29 Symbicort 80/4.5mcg - IH 2 puff BID UMBERTO Administration Docusate Sodium 100 mg 12/21/19 22:00 12/22/19 13:01 Colace - PO Not Given TID UMBERTO Gabapentin 600 mg 12/21/19 22:00 12/22/19 13:01 Neurontin - PO Not Given TID UMBERTO Lactated Ringer's 1,000 mls @ 83 mls/hr 12/20/19 22:00 12/22/19 06:30 Lactated Ringers Solution IV 83 mls/hr ASDIR UMBERTO Administration Sodium Bicarbonate 100 meq/ 1,100 mls @ 50 mls/hr 12/21/19 19:00 12/21/19 20:26 Dextrose IV 50 mls/hr Q22H UMBERTO Administration Insulin Aspart 1 vial 12/21/19 07:00 12/22/19 11:37 Novolog Vial Sliding Scale - SQ Not Given ACHS UMBERTO Protocol Morphine Sulfate 2 mg 12/21/19 01:17 12/21/19 01:25 Morphine Sulfate IVPUSH 2 mg Q4H PRN Administration PAIN LEVEL 6-10 Pantoprazole Sodium 40 mg 12/22/19 10:00 12/22/19 09:27 Protonix - PO Not Given DAILY UMBERTO Paroxetine HCl 10 mg 12/22/19 10:00 12/22/19 09:27 Paxil - PO Not Given DAILY UMBERTO Sevelamer Carbonate 1,600 mg 12/22/19 14:31 Renvela - PO TIDCM UMBERTO Sodium Bicarbonate 1,300 mg 12/21/19 12:15 12/22/19 13:01 Sodium Bicarbonate - PO Not Given TID UMBERTO Sodium Zirconium Cyclosilicate 10 gm 12/21/19 12:15 12/22/19 09:27 Lokelma PO Not Given DAILY UMBERTO ASSESSMENT/PLAN: Ms Ramos is a 39F w a h/o Autosomal dominant Polycystic Kidney Disease, chronic anemia, Cervical CADPCKD, Chronic Anemia, Cervical CA with scheduled LINING IRONER-ONC procedure 12/21 for staging. The patient arrived to the hospital for abnormal vaginal bleeds and RLQ and suprapubic tenderness. #Cervical Cancer - CT A/P revealed - subpleural groundglass opacities, enlarged periaortic retroperitoneal LNs, Stable adrenal ademona, Mild R hydronephrosis, bilateral renal cysts - Patient is to have Cervical CA staged today with Dr. Wall #VICENTE secondary to Adult Polycystic Kidney Disease - Hyperkalemia - resolved - Per Dr. Lambert - kidney function tests improving will prioritize staging surgery over permacath For Permacath placement by Vascular Sx 12/22 and initiation on HD as per Nephrology #DM 2 - home medications held npo midnight - Maintain on Novolog sliding scale. #Bipolar Disorder - Stable, continue Paroxetine. #HTN - Losartan held due to VICENTE #DVT Px - SCDs Visit type - Emergency Visit Emergency Visit: Yes ED Registration Date: 12/20/19 Care time: The patient presented to the Emergency Department on the above date and was hospitalized for further evaluation of their emergent condition. - New Patient This patient is new to me today: No - Critical Care Critical Care patient: No - Discharge Referral Referred to [facility] No ATTENDING PHYSICIAN STATEMENT I saw and evaluated the patient. I reviewed the resident's note and discussed the case with the resident. I agree with the resident's findings and plan as documented. SUBJECTIVE: OBJECTIVE: ASSESSMENT AND PLAN:
[2019-12-22] MEDS ORDERED: ceFAZolin SODIUM 1 GM VIAL ONE (15:13)
[2019-12-22] MEDS ORDERED: ceFAZolin SODIUM 1 GM VIAL IVPB ONE (15:15)
--- NOTE | 2019-12-22 15:26 | PN ---
Teaching Attending Note Name of Resident: Erick Shell ATTENDING PHYSICIAN STATEMENT I saw and evaluated the patient. I reviewed the resident's note and discussed the case with the resident. I agree with the resident's findings and plan as documented. SUBJECTIVE: Mild RLQ and suprapubic tenderness. Some bloody PV discharge. No fever/chills. No further diarrhea. OBJECTIVE: Afebrile, Hemodynamically stable Last Vital Signs Temp Pulse Resp BP Pulse Ox 98.3 F 100 H 22 H 112/66 97 12/22/19 09:25 12/22/19 09:25 12/22/19 09:25 12/22/19 09:25 12/22/19 09:25 Heart - S1, S2, RRR Lungs - clear to auscultation Abdomen - High BMI. Soft, non-tender. Bowel Sounds normal. Extremities - no edema, no calf tenderness. Neuro - AAO x 3. Tone/Power normal all extremities. Laboratory Results - last 24 hr 12/20/19 12/21/19 12/21/19 18:45 10:00 15:10 WBC RBC Hgb Hct MCV MCH MCHC RDW Plt Count MPV Sodium 138 Potassium 5.1 Chloride 109 H Carbon Dioxide 14 L Anion Gap 15 BUN 78.3 H Creatinine 7.8 H* Est GFR (CKD-EPI)AfAm 6.91 Est GFR (CKD-EPI)NonAf 5.96 POC Glucometer Random Glucose 188 H Calcium 8.1 L Phosphorus Magnesium Transferrin 100 L Total Bilirubin AST ALT Alkaline Phosphatase Total Protein Albumin Stool O & P Wet Mount COVID-19 (AJVON) Not detected O & P Permanent Slide Fungus Stain Fungal Cult Result 2 12/21/19 12/21/19 12/22/19 16:49 21:25 06:02 WBC RBC Hgb Hct MCV MCH MCHC RDW Plt Count MPV Sodium Potassium Chloride Carbon Dioxide Anion Gap BUN Creatinine Est GFR (CKD-EPI)AfAm Est GFR (CKD-EPI)NonAf POC Glucometer 165 145 138 Random Glucose Calcium Phosphorus Magnesium Transferrin Total Bilirubin AST ALT Alkaline Phosphatase Total Protein Albumin Stool O & P Wet Mount COVID-19 (JAVON) O & P Permanent Slide Fungus Stain Fungal Cult Result 2 12/22/19 12/22/19 12/22/19 07:35 07:35 09:25 WBC 14.3 H RBC 2.79 L Hgb 7.5 L Hct 23.5 L MCV 84.4 MCH 26.7 MCHC 31.7 L RDW 16.1 H Plt Count 247 MPV 8.0 Sodium 140 Potassium 5.0 Chloride 109 H Carbon Dioxide 19 L Anion Gap 11 BUN 75.6 H Creatinine 7.5 H* Est GFR (CKD-EPI)AfAm 7.24 Est GFR (CKD-EPI)NonAf 6.25 POC Glucometer Random Glucose 122 H Calcium 8.0 L Phosphorus > 9.0 H* Magnesium 2.0 Transferrin Total Bilirubin 0.4 AST 9 L ALT 8 L Alkaline Phosphatase 72 Total Protein 5.8 L Albumin 1.6 L Stool O & P Wet [place] Cancelled COVID-19 (JAVON) O & P Permanent Slide Cancelled Fungus Stain Cancelled Fungal Cult Result 2 Cancelled 12/22/19 11:32 WBC RBC Hgb Hct MCV MCH MCHC RDW Plt Count MPV Sodium Potassium Chloride Carbon Dioxide Anion Gap BUN Creatinine Est GFR (CKD-EPI)AfAm Est GFR (CKD-EPI)NonAf POC Glucometer 129 Random Glucose Calcium Phosphorus Magnesium Transferrin Total Bilirubin AST ALT Alkaline Phosphatase Total Protein Albumin Stool O & P Wet Mount COVID-19 (JAVON) O & P Permanent Slide Fungus Stain Fungal Cult Result 2 Current Medications Generic Name Dose Route Start Last Admin Trade Name Freq PRN Reason Stop Dose Admin Acetaminophen 650 mg 12/21/19 05:45 Tylenol - PO Q4H PRN pain of 3-6 Albuterol Sulfate 1 puff 12/21/19 06:20 Ventolin Hfa Inhaler - IH Q4H PRN ASTHMA Budesonide/Formoterol Fumarate 2 puff 12/21/19 22:00 12/22/19 09:29 Symbicort 80/4.5mcg - IH 2 puff BID UMBERTO Administration Docusate Sodium 100 mg 12/21/19 22:00 12/22/19 13:01 Colace - PO Not Given TID UMBERTO Gabapentin 600 mg 12/21/19 22:00 12/22/19 13:01 Neurontin - PO Not Given TID UMBERTO Lactated Ringer's 1,000 mls @ 83 mls/hr 12/20/19 22:00 12/22/19 06:30 Lactated Ringers Solution IV 83 mls/hr ASDIR UMBERTO Administration Sodium Bicarbonate 100 meq/ 1,100 mls @ 50 mls/hr 12/21/19 19:00 12/21/19 20:26 Dextrose IV 50 mls/hr Q22H UMBERTO Administration Insulin Aspart 1 vial 12/21/19 07:00 12/22/19 11:37 Novolog Vial Sliding Scale - SQ Not Given ACHS [facility] Protocol Morphine Sulfate 2 mg 12/21/19 01:17 12/21/19 01:25 Morphine Sulfate IVPUSH 2 mg Q4H PRN Administration PAIN LEVEL 6-10 Pantoprazole Sodium 40 mg 12/22/19 10:00 12/22/19 09:27 Protonix - PO Not Given DAILY [facility] Paroxetine HCl 10 mg 12/22/19 10:00 12/22/19 09:27 Paxil - PO Not Given DAILY [facility] Sevelamer Carbonate 1,600 mg 12/22/19 17:30 Renvela - PO TIDCM [facility] Sodium Bicarbonate 1,300 mg 12/21/19 12:15 12/22/19 13:01 Sodium Bicarbonate - PO Not Given TID [facility] Sodium Zirconium Cyclosilicate 10 gm 12/21/19 12:15 12/22/19 09:27 Lokelma PO Not Given DAILY [facility] Home Medications Medication Instructions Recorded Albuterol 0.083% Nebulizer Sarina 1 neb NEB Q6H PRN 10/06/17 [Ventolin 0.083% Nebulizer Soln -] Budesonide/Formeterol Fumarate 2 puff IH BID 10/06/17 [SYMBICORT 80/4.5mcg -] Insulin Glargine,Hum.rec.anlog 50 unit SQ BID 10/06/17 [Lantus] Insulin Lispro [Humalog] 30 unit SQ TID 04/18/18 Esomeprazole Magnesium [Nexium 40 mg PO DAILY 05/28/18 24Hr] Gabapentin [Neurontin] 600 mg PO TID 10/09/19 Sevelamer Carbonate [Renvela -] 800 mg PO TIDCM #90 tab 10/12/19 Dulaglutide [Trulicity] 1.5 mg SQ Q7D 11/18/19 Losartan Potassium 50 mg PO DAILY 11/18/19 Paroxetine HCl [Paxil -] 10 mg PO DAILY 11/18/19 Docusate Sodium [Colace -] 100 mg PO TID capsule 11/23/19 Sodium Bicarbonate - 1,300 mg PO BID tablet 11/23/19 ASSESSMENT AND PLAN: 39 year old female with history of ADPCKD, Chronic Anemia, Cervical CA (scheduled GYNONC procedure 12/21) presented to ED with worsening abdominal pain, and bloody vaginal discharge. CT A/P - subpleural groundglass opacities, enlarged periaortic retroperitoneal LNs, Stable adrenal ademona, Mild R hydronephrosis, bilateral renal cysts 1. Cervical Cancer Scheduled by Dr. Wall for Gyne staging procedure with uteroscopy and flex sigmoidoscopy 12/21 2. VICENTE on CKD4/5 secondary to Adult Polycystic Kidney Disease with Hyperkalemia and Metabolic Acidosis Likely progression to HD s/p Lokelma Bicarb PO and IV by Nephrology Continue Sevelemer For Permacath placement by Vascular Sx 12/22 and initiation on HD as per Nephrology 3. DM 2 - Glargine, Lispro, Trulicity held as patient will be NPO from [place]. Maintain on Novolog sliding scale. 4. Bipolar Disorder - Stable, continue Paroxetine. 5. HTN - Losartan held due to VICENTE on CKD with hyperkalemia. 6. Mild R Hydronephrosis with some monique-renal stranding - seen by Urology - for cystoscopy and bilateral JJ stents prior to Gyne procedure 12/21. 7. Normocytic Anemia - sec to progression of CKD/Chronic disease - No Iron/B12/Folate deficiency. Will discuss Epo with Nephrology. DVT Px - SCDs. Heparin/Lovenox held due to bloody PV discharge.
--- NOTE | 2019-12-22 16:19 | OP ---
DATE OF OPERATION: 12/22/2019 PREOPERATIVE DIAGNOSIS: Cervical cancer. 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 SURGEON: Liliana Wall MD. ANESTHESIA: Moderate sedation and LMA. ESTIMATED BLOOD LOSS: None. COMPLICATIONS: None. INDICATION: This is a 39-year-old with a history of polycystic kidney disease, acute renal failure, and new diagnosis of cervical cancer. She had a CT scan of the abdomen and pelvis which showed a right hydronephrosis and endocervical curettage had shown squamous cell carcinoma of the cervix. She was counseled today for exam under anesthesia, cystoscopy, proctoscopy, and by Dr. Conner bilateral ureteral stent placement. FINDINGS: Exam under anesthesia, approximately 6-cm viable mass encompassing the entire cervix. There was no vaginal involvement. Right parametrium was thickened and fixed to the sidewall on the right. On the left, the parametrium was thickened, but it was not fixed on the left sidewall. Proctoscopy was not able to be completed because patient was having a large amount of stool and so the prep was inadequate. Cystoscopy by Dr. Conner revealed bullous edema at the base of the bladder and obvious external compression of the bladder by the cervical mass. DESCRIPTION OF PROCEDURE: Risks, benefits, indications, and alternatives were discussed with the patient. All questions were answered. Informed consent was signed. The patient was brought to the operating room, placed in dorsal supine position in the Rojelio stirrups and moderate sedation was achieved. Pelvic exam was performed with the above-noted findings, and it was noted after rectal exam a large amount of thick yellow stool that made it clear that proctoscopy would not be possible. Therefore, the case was turned over to Dr. Conner, who then performed cystoscopy and bilateral ureteral stent placement and bladder biopsy. Please see his portion of the dictation for this. Liliana Wall M.D. [id number]
--- NOTE | 2019-12-22 16:33 | OP ---
DATE OF OPERATION: 12/22/2019 PREOPERATIVE DIAGNOSES: Right hydroureteronephrosis, invasive carcinoma of cervix. POSTOPERATIVE DIAGNOSES: Right hydroureteronephrosis, invasive carcinoma of cervix. OPERATIVE PROCEDURE: Cystourethroscopy, right retrograde pyelogram. Patient is prepped and draped in the usual sterile manner. She is placed in the dorsal lithotomy position. Cystoscopy revealed a trabeculated bladder with bullous edema at the trigone. With difficulty, the right ureteral orifice was found. A retrograde pyelogram was performed, and this revealed a severe, grade 4 hydroureteronephrosis to the level of the lower ureter. A Glidewire was passed up the right renal unit. A 24-cm, 6-Kosovan, JJ stent was placed in the right renal unit. X-rays confirmed good position of the stent. No other lesions were seen. The bladder was emptied. Scope was removed. [place] was connected to a leg bag. PRODUCTION OFFICER will examine patient while under anesthesia. Omar [id number]
[2019-12-22] MEDS ORDERED: ONDANSETRON 4 MG/2 ML VIAL IVPUSH PRN (17:10)
[2019-12-22] MEDS: SODIUM BICARBONATE 8.4% - 100 MEQ in DEXTROSE 5%-WATER - 1,000 ML IV SCH (18:44)
[2019-12-22 19:17] LABS: BLOOD UREA NITROGEN 71.6 mg/dL (7-18); CALCIUM 8.3 mg/dL (8.5-10.1); POTASSIUM 5.1 mmol/L (3.5-5.1)
[2019-12-22 19:19] LABS: CREATININE 7.5 mg/dL (0.55-1.3)
[2019-12-22] MEDS ORDERED: SODIUM ZIRCONIUM CYCLOSILICATE (LOKELMA) 5 GM PACKET PO ONE (19:27)
--- NOTE | 2019-12-22 22:12 | OP ---
Operative Note - Note: Operative Date: 12/22/19 Pre-Operative Diagnosis: cervical cancer and rt. hydroureteronephrosis Operation: cysto, rt. retrograde pyelogram and rt. jj stent placement Findings: severe bullouse edema of trigone Post-Operative Diagnosis: Same as Pre-op Surgeon: Sarbjit Conner Anesthesia: General Specimens Removed: urine Estimated Blood Loss (mls): 0 Instrument used (Debridements only): 0 Drains & Tubes with Location: 24cm 6f rt. jj stent and 20f 10cc castellanos Drains, Volume Out (mls): 0 Blood Volume Replaced (mls): 0 Fluid Volume Replaced (mls): 0 Operative Report Dictated: Yes
[2019-12-22] MEDS: MORPHINE SULFATE 2 MG/ML VIAL IVPUSH PRN (23:56)
[2019-12-23] MEDS: SODIUM BICARBONATE 8.4% - 100 MEQ in DEXTROSE 5%-WATER - 1,000 ML IV SCH (01:20)
[2019-12-23] MEDS: DOCUSATE SODIUM 100 MG CAPSULE (FP) PO SCH ×3 (05:16→22:48)
[2019-12-23] MEDS: SODIUM BICARBONATE 650 MG TABLET PO SCH ×2 (05:16→14:08)
[2019-12-23] MEDS: GABAPENTIN 300 MG CAPSULE PO SCH ×3 (05:16→22:48)
[2019-12-23] MEDS: LACTATED RINGERS SOLUTION 1,000 ML IV SCH (06:15)
[2019-12-23] MEDS: INSULIN SLIDING SCALE (NOVOLOG) 1 VIAL SQ SCH ×4 (06:39→22:49)
[2019-12-23 08:21] LABS: HEMATOCRIT 25.4 % (32.4-45.2); HEMOGLOBIN 8.3 GM/dL (10.7-15.3); MCH 27.7 pg (25.7-33.7); MCHC 32.7 g/dl (32.0-36.0); MEAN CELL VOLUME 84.8 fl (80-96); MEAN PLT VOLUME 7.9 fl (7.5-11.1); PLATELET COUNT 278 K/MM3 (134-434); WHITE BLOOD COUNT 9.8 K/mm3 (4.0-10.0)
[2019-12-23 08:47] LABS: BLOOD UREA NITROGEN 70.3 mg/dL (7-18); CALCIUM 8.3 mg/dL (8.5-10.1); CREATININE 7.3 mg/dL (0.55-1.3); MAGNESIUM 2.2 mg/dL (1.8-2.4)
[2019-12-23] MEDS: SEVELAMER CARBONATE 800 MG TAB (FP) PO SCH ×3 (08:48→17:50)
[2019-12-23 09:24] LABS: PHOSPHOROUS 8.4 mg/dL (2.5-4.9)
[2019-12-23] MEDS ORDERED: SODIUM CHLORIDE 0.45% 1,000 ML IV SCH (09:45)
[2019-12-23] MEDS: PARoxetine HCL 10 MG TABLET PO SCH (09:50)
[2019-12-23] MEDS: PANTOPRAZOLE 40 MG TABLET PO SCH (09:50)
[2019-12-23] MEDS ORDERED: SODIUM CHLORIDE 250 ML IV PRN ×2 (10:13→19:14)
[2019-12-23] MEDS: BUDESONIDE/FORMETEROL FUMARATE 80/4.5 mcg INHALER IH SCH ×2 (12:18→22:50)
[2019-12-23] MEDS ORDERED: PT OWN MED DRAWER 7, Y5N ONE (12:18)
[2019-12-23] MEDS ORDERED: PROPOFOL 20 ML ONE ×6 (14:34→15:47)
[2019-12-23] MEDS ORDERED: MIDAZOLAM HCL 2 MG/2 ML SINGLE DOSE VIAL ONE ×2 (14:34)
[2019-12-23] MEDS ORDERED: SUCCINYLCHOLINE CHLORIDE 200 MG/10 ML SYRINGE ONE (14:35)
[2019-12-23] MEDS ORDERED: EPHEDRINE SULFATE/0.9% NACL/PF 50 MG/10 ML SYRINGE NR ONE (14:35)
[2019-12-23] MEDS ORDERED: GLYCOPYRROLATE 0.2 MG/1 ML VIAL ONE (14:35)
[2019-12-23] MEDS ORDERED: KETAMINE HCL 200 MG/20 ML VIAL ONE (15:21)
[2019-12-23] MEDS ORDERED: LIDOCAINE HCL 1%, 10 MG/ML (20ML VIAL) NR ONE ×2 (15:36)
--- NOTE | 2019-12-23 15:58 | PN ---
Progress Note, Physician History of Present Illness: Pt seen and examined at bedside. She is awake and alert. She denies shortness of breath. - Current Medication List Current Medications: Active Medications Acetaminophen (Tylenol -) 650 mg PO Q4H PRN PRN Reason: pain of 3-6 Albuterol Sulfate (Ventolin Hfa Inhaler -) 1 puff IH Q4H PRN PRN Reason: ASTHMA Budesonide/Formoterol Fumarate (Symbicort 80/4.5mcg -) 2 puff IH BID [facility] Last Admin: 12/23/19 12:18 Dose: 2 puff Documented by: Docusate Sodium (Colace -) 100 mg PO TID [facility] Last Admin: 12/23/19 14:08 Dose: Not Given Documented by: Gabapentin (Neurontin -) 600 mg PO TID [facility] Last Admin: 12/23/19 14:08 Dose: Not Given Documented by: Sodium Chloride (1/2 Normal Saline) 1,000 mls @ 50 mls/hr IV ASDIR [facility] Stop: 12/24/19 09:40 Last Admin: 12/23/19 09:52 Dose: 50 mls/hr Documented by: Sodium Chloride (Normal Saline -) 250 mls @ 3,000 mls/hr IV PRN PRN PRN Reason: Hypotension during Dialysis Stop: 12/24/19 10:13 Insulin Aspart (Novolog Vial Sliding Scale -) 1 vial SQ ACHS [facility]; Protocol Last Admin: 12/23/19 12:14 Dose: 2 units Documented by: Morphine Sulfate (Morphine Sulfate) 2 mg IVPUSH Q4H PRN PRN Reason: PAIN LEVEL 6-10 Last Admin: 12/22/19 23:56 Dose: 2 mg Documented by: Ondansetron HCl (Zofran Injection) 4 mg IVPUSH Q6H PRN PRN Reason: NAUSEA AND/OR VOMITING Pantoprazole Sodium (Protonix -) 40 mg PO DAILY [facility] Last Admin: 12/23/19 09:50 Dose: 40 mg Documented by: Paroxetine HCl (Paxil -) 10 mg PO DAILY [facility] Last Admin: 12/23/19 09:50 Dose: 10 mg Documented by: Sevelamer Carbonate (Renvela -) 1,600 mg PO TIDCM [facility] Last Admin: 12/23/19 12:19 Dose: Not Given Documented by: Sodium Bicarbonate (Sodium Bicarbonate -) 1,300 mg PO TID UMBERTO Last Admin: 12/23/19 14:08 Dose: Not Given Documented by: - Objective Vital Signs: Vital Signs Temperature 97.7 F 12/23/19 13:30 Pulse Rate 84 12/23/19 13:30 Respiratory Rate 18 12/23/19 13:30 Blood Pressure 162/72 12/23/19 13:30 O2 Sat by Pulse Oximetry (%) 98 12/23/19 13:30 Constitutional: Yes: Calm Eyes: Yes: Conjunctiva Clear HENT: Yes: Atraumatic Cardiovascular: Yes: S1, S2 Respiratory: Yes: CTA Bilaterally Gastrointestinal: Yes: Normal Bowel Sounds, Soft Genitourinary: Yes: Meadows Present Musculoskeletal: Yes: WNL Edema: No Integumentary: Yes: WNL Neurological: Yes: Oriented Psychiatric: Yes: Oriented Labs: CBC, BMP 12/23/19 07:30 12/23/19 07:30 INR, PTT INR 1.06 (0.83-1.09) 12/20/19 13:17 Problem List - Problems (1) Acute renal failure Code(s): N17.9 - ACUTE KIDNEY FAILURE, UNSPECIFIED (2) CKD (chronic kidney disease) Code(s): N18.9 - CHRONIC KIDNEY DISEASE, UNSPECIFIED Assessment/Plan Current Medications Generic Name Dose Route Start Last Admin Trade Name Freq PRN Reason Stop Dose Admin Acetaminophen 650 mg 12/21/19 05:45 Tylenol - PO Q4H PRN pain of 3-6 Albuterol Sulfate 1 puff 12/21/19 06:20 Ventolin Hfa Inhaler - IH Q4H PRN ASTHMA Budesonide/Formoterol Fumarate 2 puff 12/21/19 22:00 12/23/19 12:18 Symbicort 80/4.5mcg - IH 2 puff BID UMBERTO Administration Docusate Sodium 100 mg 12/21/19 22:00 12/23/19 14:08 Colace - PO Not Given TID UMBERTO Gabapentin 600 mg 12/21/19 22:00 12/23/19 14:08 Neurontin - PO Not Given TID UMBERTO Sodium Chloride 1,000 mls @ 50 mls/hr 12/23/19 09:45 12/23/19 09:52 1/2 Normal Saline IV 12/24/19 09:40 50 mls/hr ASDIR UMBERTO Administration Sodium Chloride 250 mls @ 3,000 mls/hr 12/23/19 10:13 Normal Saline - IV 12/24/19 10:13 PRN PRN Hypotension during Dialysis Insulin Aspart 1 vial 12/21/19 07:00 12/23/19 12:14 Novolog Vial Sliding Scale - SQ 2 units ACHS UMBRETO Administration Protocol Morphine Sulfate 2 mg 12/21/19 01:17 12/22/19 23:56 Morphine Sulfate IVPUSH 2 mg Q4H PRN Administration PAIN LEVEL 6-10 Ondansetron HCl 4 mg 12/22/19 17:10 Zofran Injection IVPUSH Q6H PRN NAUSEA AND/OR VOMITING Pantoprazole Sodium 40 mg 12/22/19 10:00 12/23/19 09:50 Protonix - PO 40 mg DAILY UMBERTO Administration Paroxetine HCl 10 mg 12/22/19 10:00 12/23/19 09:50 Paxil - PO 10 mg DAILY UMBERTO Administration Sevelamer Carbonate 1,600 mg 12/22/19 17:30 12/23/19 12:19 Renvela - PO Not Given TIDCM UMBERTO Sodium Bicarbonate 1,300 mg 12/21/19 12:15 12/23/19 14:08 Sodium Bicarbonate - PO Not Given TID UMBERTO Impression 1. Acute on chronic renal insufficiency 2. Chronic anemia 3. hyperkalemia 4. Metabolic acidosis 5. DM 6. abdominal pain 7. polycystic kidney disease 8. cervical cancer Plan - pt getting permacath - arrange for HD today - can d/c bicarb - can d/c fluids - renal diet - cont phos binders - will need outpt HD placement
--- NOTE | 2019-12-23 16:05 | PN ---
Teaching Attending Note Name of Resident: Erick Shell ATTENDING PHYSICIAN STATEMENT I saw and evaluated the patient. I reviewed the resident's note and discussed the case with the resident. I agree with the resident's findings and plan as documented. SUBJECTIVE: Mild abdominal discomfort. No fever/chills. No further diarrhea. OBJECTIVE: Afebrile, Hemodynamically stable Last Vital Signs Temp Pulse Resp BP Pulse Ox 97.7 F 84 18 162/72 98 12/23/19 13:30 12/23/19 13:30 12/23/19 13:30 12/23/19 13:30 12/23/19 13:30 Heart - S1, S2, RRR Lungs - clear to auscultation Abdomen - High BMI. Soft, RLQ and suprapubic tenderness. Bowel Sounds normal. Extremities - no edema, no calf tenderness. Neuro - AAO x 3. Tone/Power normal all extremities. Laboratory Results - last 24 hr 12/20/19 12/22/19 12/22/19 15:27 17:36 18:00 WBC RBC Hgb Hct MCV MCH MCHC RDW Plt Count MPV Sodium 140 Potassium 5.1 Chloride 108 H Carbon Dioxide 17 L Anion Gap 15 BUN 71.6 H Creatinine 7.5 H* Est GFR (CKD-EPI)AfAm 7.24 Est GFR (CKD-EPI)NonAf 6.25 POC Glucometer 137 Random Glucose 165 H Calcium 8.3 L Phosphorus Magnesium C. trachomatis (JAVON) Negative N. gonorrhoeae (JAVON) Negative 12/22/19 12/23/19 12/23/19 22:10 06:20 07:30 WBC 9.8 RBC 3.00 L Hgb 8.3 L Hct 25.4 L MCV 84.8 MCH 27.7 MCHC 32.7 RDW 16.0 H Plt Count 278 MPV 7.9 Sodium Potassium Chloride Carbon Dioxide Anion Gap BUN Creatinine Est GFR (CKD-EPI)AfAm Est GFR (CKD-EPI)NonAf POC Glucometer 369 311 Random Glucose Calcium Phosphorus Magnesium C. trachomatis (JAVON) N. gonorrhoeae (JAVON) 12/23/19 12/23/19 12/23/19 07:30 11:53 14:42 WBC RBC Hgb Hct MCV MCH MCHC RDW Plt Count MPV Sodium 137 Potassium 5.0 Chloride 104 Carbon Dioxide 20 L Anion Gap 13 BUN 70.3 H Creatinine 7.3 H Est GFR (CKD-EPI)AfAm 7.48 Est GFR (CKD-EPI)NonAf 6.46 POC Glucometer 248 234 Random Glucose 312 H Calcium 8.3 L Phosphorus 8.4 H Magnesium 2.2 C. trachomatis (JAVON) N. gonorrhoeae (JAVON) Current Medications Generic Name Dose Route Start Last Admin Trade Name Freq PRN Reason Stop Dose Admin Acetaminophen 650 mg 12/21/19 05:45 Tylenol - PO Q4H PRN pain of 3-6 Albuterol Sulfate 1 puff 12/21/19 06:20 Ventolin Hfa Inhaler - IH Q4H PRN ASTHMA Budesonide/Formoterol Fumarate 2 puff 12/21/19 22:00 12/23/19 12:18 Symbicort 80/4.5mcg - IH 2 puff BID UMBERTO Administration Docusate Sodium 100 mg 12/21/19 22:00 12/23/19 14:08 Colace - PO Not Given TID UMBERTO Gabapentin 600 mg 12/21/19 22:00 12/23/19 14:08 Neurontin - PO Not Given TID UMBERTO Sodium Chloride 1,000 mls @ 50 mls/hr 12/23/19 09:45 12/23/19 09:52 1/2 Normal Saline IV 12/24/19 09:40 50 mls/hr ASDIR UMBERTO Administration Sodium Chloride 250 mls @ 3,000 mls/hr 12/23/19 10:13 Normal Saline - IV 12/24/19 10:13 PRN PRN Hypotension during Dialysis Insulin Aspart 1 vial 12/21/19 07:00 12/23/19 12:14 Novolog Vial Sliding Scale - SQ 2 units ACHS UMBERTO Administration Protocol Morphine Sulfate 2 mg 12/21/19 01:17 12/22/19 23:56 Morphine Sulfate IVPUSH 2 mg Q4H PRN Administration PAIN LEVEL 6-10 Ondansetron HCl 4 mg 12/22/19 17:10 Zofran Injection IVPUSH Q6H PRN NAUSEA AND/OR VOMITING Pantoprazole Sodium 40 mg 12/22/19 10:00 12/23/19 09:50 Protonix - PO 40 mg DAILY UMBERTO Administration Paroxetine HCl 10 mg 12/22/19 10:00 12/23/19 09:50 Paxil - PO 10 mg DAILY UMBERTO Administration Sevelamer Carbonate 1,600 mg 12/22/19 17:30 12/23/19 12:19 Renvela - PO Not Given TIDCM UMBERTO Sodium Bicarbonate 1,300 mg 12/21/19 12:15 12/23/19 14:08 Sodium Bicarbonate - PO Not Given TID UMBERTO Home Medications Medication Instructions Recorded Albuterol 0.083% Nebulizer Sarina 1 neb NEB Q6H PRN 10/06/17 [Ventolin 0.083% Nebulizer Soln -] Budesonide/Formeterol Fumarate 2 puff IH BID 10/06/17 [SYMBICORT 80/4.5mcg -] Insulin Glargine,Hum.rec.anlog 50 unit SQ BID 10/06/17 [Lantus] Insulin Lispro [Humalog] 30 unit SQ TID 04/18/18 Esomeprazole Magnesium [Nexium 40 mg PO DAILY 05/28/18 24Hr] Gabapentin [Neurontin] 600 mg PO TID 10/09/19 Sevelamer Carbonate [Renvela -] 800 mg PO TIDCM #90 tab 10/12/19 Dulaglutide [Trulicity] 1.5 mg SQ Q7D 11/18/19 Losartan Potassium 50 mg PO DAILY 11/18/19 Paroxetine HCl [Paxil -] 10 mg PO DAILY 11/18/19 Docusate Sodium [Colace -] 100 mg PO TID capsule 11/23/19 Sodium Bicarbonate - 1,300 mg PO BID tablet 11/23/19 ASSESSMENT AND PLAN: 39 year old female with history of ADPCKD, Chronic Anemia, Cervical CA (scheduled GYNONC procedure 12/21) presented to ED with worsening abdominal pain, and bloody vaginal discharge. CT A/P - subpleural groundglass opacities, enlarged periaortic retroperitoneal LNs, Stable adrenal ademona, Mild R hydronephrosis, bilateral renal cysts 1. Cervical Cancer POD 1 s/p Uteroscopy and attempted flex sigmoidoscopy for Staging by Dr. Wall - GRADE IIIB Further management by GYNONC. 2. VICENTE on CKD4/5 secondary to Adult Polycystic Kidney Disease with Hyperkalemia and Metabolic Acidosis Likely progression to HD s/p Lokelma For Permacath placement and HD today. Bicarb and IV fluids discontinued by Nephrology Continue Sevelemer Hepatitis panel sent for out-patient dialysis center placement. 3. DM 2 - Glargine, Lispro, Trulicity held in favor of Novolog sliding scale as she is NPO for procedure. 4. Bipolar Disorder - Stable, continue Paroxetine. 5. HTN - Losartan held due to VICENTE on CKD with hyperkalemia. 6. Mild R Hydronephrosis with some monique-renal stranding - seen by Urology - POD 1 s/p cystoscopy and R JJ stenting. 7. Normocytic Anemia - sec to progression of CKD/Chronic disease - No Iron/B12/Folate deficiency. DVT Px - SCDs. Heparin/Lovenox held due to bloody PV discharge.
[2019-12-23] MEDS ORDERED: ONDANSETRON 4 MG/2 ML VIAL IVPUSH PRN ×2 (16:19→19:14)
[2019-12-23] MEDS ORDERED: SODIUM CHLORIDE 1,000 ML IV SCH ×2 (16:30→19:14)
[2019-12-23] MEDS ORDERED: SODIUM ZIRCONIUM CYCLOSILICATE (LOKELMA) 5 GM PACKET PO ONE (17:09)
--- NOTE | 2019-12-23 17:09 | OP ---
Operative Note - Note: Operative Date: 12/23/19 Pre-Operative Diagnosis: ESRD Operation: Insertion of permacath Post-Operative Diagnosis: Same as Pre-op Surgeon: Guillermo Hall Anesthesia: MAC Estimated Blood Loss (mls): 20 Operative Report Dictated: Yes
--- NOTE | 2019-12-23 17:30 | PN ---
Physical Exam: SUBJECTIVE: Patient seen and examined OBJECTIVE: Vital Signs Period Temp Pulse Resp BP Sys/Farah Pulse Ox Last 24 Hr 97.6 F-98.5 F 80-88 10-21 136-166/59-98 94-100 GENERAL: The patient is awake, alert, and fully oriented, in no acute distress. HEAD: Normal with no signs of trauma. EYES: PERRL, extraocular movements intact, sclera anicteric, conjunctiva clear. No ptosis. ENT: Ears normal, nares patent, oropharynx clear without exudates, moist mucous membranes. NECK: Trachea midline, full range of motion, supple. LUNGS: Breath sounds equal, clear to auscultation bilaterally, no wheezes, no crackles, no accessory muscle use. HEART: Regular rate and rhythm, S1, S2 without murmur, rub or gallop. ABDOMEN: Soft, nontender, nondistended, normoactive bowel sounds, no guarding, no rebound, no hepatosplenomegaly, no masses. EXTREMITIES: 2+ pulses, warm, well-perfused, no edema. NEUROLOGICAL: Cranial nerves II through XII grossly intact. Normal speech, gait not observed. PSYCH: Normal mood, normal affect. SKIN: Warm, dry, normal turgor, no rashes or lesions noted Laboratory Results - last 24 hr 12/20/19 12/22/19 12/22/19 15:27 17:36 18:00 WBC RBC Hgb Hct MCV MCH MCHC RDW Plt Count MPV Sodium 140 Potassium 5.1 Chloride 108 H Carbon Dioxide 17 L Anion Gap 15 BUN 71.6 H Creatinine 7.5 H* Est GFR (CKD-EPI)AfAm 7.24 Est GFR (CKD-EPI)NonAf 6.25 POC Glucometer 137 Random Glucose 165 H Calcium 8.3 L Phosphorus Magnesium C. trachomatis (JAVON) Negative N. gonorrhoeae (JAVON) Negative 12/22/19 12/23/19 12/23/19 22:10 06:20 07:30 WBC 9.8 RBC 3.00 L Hgb 8.3 L Hct 25.4 L MCV 84.8 MCH 27.7 MCHC 32.7 RDW 16.0 H Plt Count 278 MPV 7.9 Sodium Potassium Chloride Carbon Dioxide Anion Gap BUN Creatinine Est GFR (CKD-EPI)AfAm Est GFR (CKD-EPI)NonAf POC Glucometer 369 311 Random Glucose Calcium Phosphorus Magnesium C. trachomatis (JAVON) N. gonorrhoeae (JAVON) 12/23/19 12/23/19 12/23/19 07:30 11:53 14:42 WBC RBC Hgb Hct MCV MCH MCHC RDW Plt Count MPV Sodium 137 Potassium 5.0 Chloride 104 Carbon Dioxide 20 L Anion Gap 13 BUN 70.3 H Creatinine 7.3 H Est GFR (CKD-EPI)AfAm 7.48 Est GFR (CKD-EPI)NonAf 6.46 POC Glucometer 248 234 Random Glucose 312 H Calcium 8.3 L Phosphorus 8.4 H Magnesium 2.2 C. trachomatis (JAVON) N. gonorrhoeae (JAVON) 12/23/19 17:14 WBC RBC Hgb Hct MCV MCH MCHC RDW Plt Count MPV Sodium Potassium Chloride Carbon Dioxide Anion Gap BUN Creatinine Est GFR (CKD-EPI)AfAm Est GFR (CKD-EPI)NonAf POC Glucometer 206 Random Glucose Calcium Phosphorus Magnesium C. trachomatis (JAVON) N. gonorrhoeae (JAVON) Active Medications Generic Name Dose Route Start Last Admin Trade Name Freq PRN Reason Stop Dose Admin Acetaminophen 650 mg 12/21/19 05:45 Tylenol - PO Q4H PRN pain of 3-6 Albuterol Sulfate 1 puff 12/21/19 06:20 Ventolin Hfa Inhaler - IH Q4H PRN ASTHMA Budesonide/Formoterol Fumarate 2 puff 12/21/19 22:00 12/23/19 12:18 Symbicort 80/4.5mcg - IH 2 puff BID UMBERTO Administration Docusate Sodium 100 mg 12/21/19 22:00 12/23/19 14:08 Colace - PO Not Given TID UMBERTO Fentanyl 50 mcg 12/23/19 16:19 12/23/19 16:20 Sublimaze Injection - IVPUSH 50 mcg [id number] PRN Administration PAIN-PACU ORDER X 4 DOSES ONLY Gabapentin 600 mg 12/21/19 22:00 12/23/19 14:08 Neurontin - PO Not Given TID UMBERTO Sodium Chloride 250 mls @ 3,000 mls/hr 12/23/19 10:13 Normal Saline - IV 12/24/19 10:13 PRN PRN Hypotension during Dialysis Sodium Chloride 1,000 mls @ 42 mls/hr 12/23/19 16:30 Normal Saline - IV ASDIR UMBERTO Insulin Aspart 1 vial 12/21/19 07:00 12/23/19 12:14 Novolog Vial Sliding Scale - SQ 2 units ACHS UMBERTO Administration Protocol Morphine Sulfate 2 mg 12/21/19 01:17 12/22/19 23:56 Morphine Sulfate IVPUSH 2 mg Q4H PRN Administration PAIN LEVEL 6-10 Ondansetron HCl 4 mg 12/23/19 16:19 Zofran Injection IVPUSH Q6H PRN NAUSEA AND/OR VOMITING Pantoprazole Sodium 40 mg 12/22/19 10:00 12/23/19 09:50 Protonix - PO 40 mg DAILY UMBERTO Administration Paroxetine HCl 10 mg 12/22/19 10:00 12/23/19 09:50 Paxil - PO 10 mg DAILY UMBERTO Administration Sevelamer Carbonate 1,600 mg 12/22/19 17:30 12/23/19 12:19 Renvela - PO Not Given TIDCM UMBERTO ASSESSMENT/PLAN: Visit type - Emergency Visit Emergency Visit: Yes ED Registration Date: 12/20/19 Care time: The patient presented to the Emergency Department on the above date and was hospitalized for further evaluation of their emergent condition. - New Patient This patient is new to me today: No - Critical Care Critical Care patient: No - Discharge Referral Referred to [facility] No ATTENDING PHYSICIAN STATEMENT I saw and evaluated the patient. I reviewed the resident's note and discussed the case with the resident. I agree with the resident's findings and plan as documented. SUBJECTIVE: OBJECTIVE: ASSESSMENT AND PLAN:
[2019-12-23] MEDS ORDERED: ALBUTEROL SO4 HFA INHALER IH PRN (19:14)
[2019-12-23] MEDS ORDERED: HYDROmorphone HCL 2 MG TABLET PO ONE (22:25)
[2019-12-24] MEDS: INSULIN SLIDING SCALE (NOVOLOG) 1 VIAL SQ SCH ×4 (06:12→21:34)
[2019-12-24] MEDS: ACETAMINOPHEN 325 MG TABLET (FP) PO PRN (06:13)
[2019-12-24] MEDS: DOCUSATE SODIUM 100 MG CAPSULE (FP) PO SCH ×3 (06:13→21:34)
[2019-12-24] MEDS: GABAPENTIN 300 MG CAPSULE PO SCH ×3 (06:16→21:33)
[2019-12-24] MEDS: SEVELAMER CARBONATE 800 MG TAB (FP) PO SCH ×3 (07:43→16:58)
[2019-12-24] MEDS ORDERED: traMADol HCL 50 MG TABLET PO ONE (08:32)
[2019-12-24 09:49] LABS: HEMATOCRIT 25.7 % (32.4-45.2); HEMOGLOBIN 8.2 GM/dL (10.7-15.3); MCH 27.1 pg (25.7-33.7); MCHC 31.7 g/dl (32.0-36.0); MEAN CELL VOLUME 85.4 fl (80-96); MEAN PLT VOLUME 7.9 fl (7.5-11.1); PLATELET COUNT 317 K/MM3 (134-434); RBC 3.01 M/mm3 (3.60-5.2); RDW 15.8 % (11.6-15.6); WHITE BLOOD COUNT 16.5 K/mm3 (4.0-10.0)
[2019-12-24 10:09] LABS: BLOOD UREA NITROGEN 67.8 mg/dL (7-18); POTASSIUM 3.8 mmol/L (3.5-5.1)
[2019-12-24 10:10] LABS: CALCIUM 8.5 mg/dL (8.5-10.1); MAGNESIUM 2.2 mg/dL (1.8-2.4); PHOSPHOROUS 8.2 mg/dL (2.5-4.9)
--- NOTE | 2019-12-24 10:31 | PN ---
Progress Note (short form) - Note Progress Note: RENAL Pt is currently on hemodialysis denies complaints has a permcath Last Vital Signs Temp Pulse Resp BP Pulse Ox 97.8 F 89 18 171/86 H 95 12/24/19 08:30 12/24/19 08:35 12/24/19 08:35 12/24/19 08:35 12/24/19 05:00 lungs clear cvs s1s2 rr abd soft ext no edema neuro a+ox3 CBC, BMP 12/24/19 08:40 12/24/19 08:40 Current Medications Generic Name Dose Route Start Last Admin Trade Name Freq PRN Reason Stop Dose Admin Acetaminophen 650 mg 12/23/19 19:14 12/24/19 06:13 Tylenol - PO 650 mg Q4H PRN Administration pain of 3-6 Albuterol Sulfate 1 puff 12/23/19 19:14 Ventolin Hfa Inhaler - IH Q4H PRN ASTHMA Budesonide/Formoterol Fumarate 2 puff 12/23/19 22:00 12/23/19 22:50 Symbicort 80/4.5mcg - IH 2 puff BID UMBERTO Administration Docusate Sodium 100 mg 12/23/19 22:00 12/24/19 06:13 Colace - PO 100 mg TID UMBERTO Administration Fentanyl 50 mcg 12/23/19 19:14 Sublimaze Injection - IVPUSH [id number] PRN PAIN-PACU ORDER X 4 DOSES ONLY Gabapentin 600 mg 12/23/19 22:00 12/24/19 06:16 Neurontin - PO 600 mg TID UMBERTO Administration Sodium Chloride 250 mls @ 3,000 mls/hr 12/23/19 19:14 Normal Saline - IV 12/24/19 10:13 PRN PRN Hypotension during Dialysis Sodium Chloride 1,000 mls @ 42 mls/hr 12/23/19 19:14 12/23/19 22:24 Normal Saline - IV Not Given ASDIR UMBERTO Insulin Aspart 1 vial 12/23/19 22:00 12/24/19 06:12 Novolog Vial Sliding Scale - SQ 4 units ACHS UMBERTO Administration Protocol Morphine Sulfate 2 mg 12/23/19 19:14 Morphine Sulfate IVPUSH Q4H PRN PAIN LEVEL 6-10 Ondansetron HCl 4 mg 12/23/19 19:14 Zofran Injection IVPUSH Q6H PRN NAUSEA AND/OR VOMITING Pantoprazole Sodium 40 mg 12/24/19 10:00 Protonix - PO DAILY UMBERTO Paroxetine HCl 10 mg 12/24/19 10:00 Paxil - PO DAILY UMBERTO Sevelamer Carbonate 1,600 mg 12/24/19 08:00 12/24/19 07:43 Renvela - PO 1,600 mg TIDCM UMBERTO Administration Impression 1. Acute on chronic renal insufficiency 2. Chronic anemia 3. hyperkalemia 4. Metabolic acidosis 5. DM 6. abdominal pain 7. polycystic kidney disease 8. cervical cancer Plan - renal diet - cont phos binders - will need outpt HD placement -will also need referral for transplant MV
[2019-12-24] MEDS: PARoxetine HCL 10 MG TABLET PO SCH (11:21)
[2019-12-24] MEDS: PANTOPRAZOLE 40 MG TABLET PO SCH (11:21)
[2019-12-24] MEDS: BUDESONIDE/FORMETEROL FUMARATE 80/4.5 mcg INHALER IH SCH ×2 (11:27→21:48)
--- NOTE | 2019-12-24 13:17 | PN ---
Teaching Attending Note Name of Resident: Erick Shell ATTENDING PHYSICIAN STATEMENT I saw and evaluated the patient. I reviewed the resident's note and discussed the case with the resident. I agree with the resident's findings and plan as documented. SUBJECTIVE: Mild discomfort at permacath site. No fever/chills. Some PV discharge. No further diarrhea. OBJECTIVE: Afebrile, Hemodynamically stable Last Vital Signs Temp Pulse Resp BP Pulse Ox 97.8 F 89 18 166/74 100 12/24/19 11:18 12/24/19 11:18 12/24/19 11:18 12/24/19 11:18 12/24/19 11:20 Heart - S1, S2, RRR Lungs - clear to auscultation Abdomen - High BMI. Soft, RLQ and suprapubic tenderness. Bowel Sounds normal. Extremities - no edema, no calf tenderness. Neuro - AAO x 3. Tone/Power normal all extremities. Laboratory Results - last 24 hr 12/23/19 12/23/19 12/23/19 14:42 17:14 22:45 WBC RBC Hgb Hct MCV MCH MCHC RDW Plt Count MPV Sodium Potassium Chloride Carbon Dioxide Anion Gap BUN Creatinine Est GFR (CKD-EPI)AfAm Est GFR (CKD-EPI)NonAf POC Glucometer 234 206 277 Random Glucose Calcium Phosphorus Magnesium 12/24/19 12/24/19 12/24/19 05:54 08:40 08:40 WBC 16.5 H RBC 3.01 L Hgb 8.2 L Hct 25.7 L MCV 85.4 MCH 27.1 MCHC 31.7 L RDW 15.8 H Plt Count 317 MPV 7.9 Sodium 135 L Potassium 3.8 Chloride 102 Carbon Dioxide 22 Anion Gap 11 BUN 67.8 H Creatinine 7.0 H Est GFR (CKD-EPI)AfAm 7.87 Est GFR (CKD-EPI)NonAf 6.79 POC Glucometer 252 Random Glucose 249 H Calcium 8.5 Phosphorus 8.2 H Magnesium 2.2 12/24/19 11:24 WBC RBC Hgb Hct MCV MCH MCHC RDW Plt Count MPV Sodium Potassium Chloride Carbon Dioxide Anion Gap BUN Creatinine Est GFR (CKD-EPI)AfAm Est GFR (CKD-EPI)NonAf POC Glucometer 193 Random Glucose Calcium Phosphorus Magnesium Current Medications Generic Name Dose Route Start Last Admin Trade Name Freq PRN Reason Stop Dose Admin Acetaminophen 650 mg 12/23/19 19:14 12/24/19 06:13 Tylenol - PO 650 mg Q4H PRN Administration pain of 3-6 Albuterol Sulfate 1 puff 12/23/19 19:14 Ventolin Hfa Inhaler - IH Q4H PRN ASTHMA Budesonide/Formoterol Fumarate 2 puff 12/23/19 22:00 12/24/19 11:27 Symbicort 80/4.5mcg - IH 2 puff BID UMBERTO Administration Docusate Sodium 100 mg 12/23/19 22:00 12/24/19 06:13 Colace - PO 100 mg TID UMBERTO Administration Fentanyl 50 mcg 12/23/19 19:14 Sublimaze Injection - IVPUSH [id number] PRN PAIN-PACU ORDER X 4 DOSES ONLY Gabapentin 600 mg 12/23/19 22:00 12/24/19 06:16 Neurontin - PO 600 mg TID UMBERTO Administration Sodium Chloride 250 mls @ 3,000 mls/hr 12/23/19 19:14 Normal Saline - IV 12/24/19 10:13 PRN PRN Hypotension during Dialysis Insulin Aspart 1 vial 12/23/19 22:00 12/24/19 11:25 Novolog Vial Sliding Scale - SQ Not Given ACHS [facility] Protocol Morphine Sulfate 2 mg 12/23/19 19:14 Morphine Sulfate IVPUSH Q4H PRN PAIN LEVEL 6-10 Ondansetron HCl 4 mg 12/23/19 19:14 Zofran Injection IVPUSH Q6H PRN NAUSEA AND/OR VOMITING Pantoprazole Sodium 40 mg 12/24/19 10:00 12/24/19 11:21 Protonix - PO 40 mg DAILY UMBERTO Administration Paroxetine HCl 10 mg 12/24/19 10:00 12/24/19 11:21 Paxil - PO 10 mg DAILY UMBERTO Administration Sevelamer Carbonate 1,600 mg 12/24/19 08:00 12/24/19 11:24 Renvela - PO 1,600 mg TIDCM UMBERTO Administration Home Medications Medication Instructions Recorded Albuterol 0.083% Nebulizer Sarina 1 neb NEB Q6H PRN 10/06/17 [Ventolin 0.083% Nebulizer Soln -] Budesonide/Formeterol Fumarate 2 puff IH BID 10/06/17 [SYMBICORT 80/4.5mcg -] Insulin Glargine,Hum.rec.anlog 50 unit SQ BID 10/06/17 [Lantus] Insulin Lispro [Humalog] 30 unit SQ TID 04/18/18 Esomeprazole Magnesium [Nexium 40 mg PO DAILY 05/28/18 24Hr] Gabapentin [Neurontin] 600 mg PO TID 10/09/19 Sevelamer Carbonate [Renvela -] 800 mg PO TIDCM #90 tab 10/12/19 Dulaglutide [Trulicity] 1.5 mg SQ Q7D 11/18/19 Losartan Potassium 50 mg PO DAILY 11/18/19 Paroxetine HCl [Paxil -] 10 mg PO DAILY 11/18/19 Docusate Sodium [Colace -] 100 mg PO TID capsule 11/23/19 Sodium Bicarbonate - 1,300 mg PO BID tablet 11/23/19 ASSESSMENT AND PLAN: 39 year old female with history of ADPCKD, Chronic Anemia, Cervical CA (scheduled GYNONC procedure 12/21) presented to ED with worsening abdominal pain, and bloody vaginal discharge. CT A/P - subpleural groundglass opacities, enlarged periaortic retroperitoneal LNs, Stable adrenal ademona, Mild R hydronephrosis, bilateral renal cysts 1. Cervical Cancer POD 2 s/p Uteroscopy and attempted flex sigmoidoscopy for Staging by Dr. Wall - GRADE IIIB Further management by GYNONC. 2. VICENTE on CKD4/5 secondary to Adult Polycystic Kidney Disease with Hyperkalemia and Metabolic Acidosis POD 1 s/p Permacath placement s/p first HD session 12/23 s/p Lokelma Bicarb and IV fluids discontinued by Nephrology Continue Sevelemer Hepatitis panel pending - result needed for out-patient dialysis center placement. 3. DM 2 - Glargine, Lispro, Trulicity held in favor of Novolog sliding scale. 4. Bipolar Disorder - Stable, continue Paroxetine. 5. HTN - Losartan held due to VICENTE on CKD with hyperkalemia. 6. Mild R Hydronephrosis with some monique-renal stranding - seen by Urology - POD 2 s/p cystoscopy and R JJ stenting. 7. Normocytic Anemia - sec to progression of CKD/Chronic disease - No Iron/B12/Folate deficiency. DVT Px - SCDs. Heparin/Lovenox held due to bloody PV discharge.
--- NOTE | 2019-12-24 14:14 | PN ---
Physical Exam: SUBJECTIVE: Patient seen and examined during dialysis treatment. Patient reports uncomfortable suprapubic dull pain. Patient reports resolution of right sided flank pain. She endorses pain at the permacath site. Patient is POD 1. Nurses were unable to obtain IV access. Pain medications delivered PO OBJECTIVE: Vital Signs Period Temp Pulse Resp BP Sys/Farah Pulse Ox Last 24 Hr 97.4 F-98.9 F 76-94 10-20 114-176/59-99 95-100 GENERAL: The patient is awake, alert, and fully oriented, in mild distress LUNGS: Breath sounds equal, clear to auscultation bilaterally, no wheezes, no crackles, no accessory muscle use. HEART: Regular rate and rhythm, S1, S2 without murmur, rub or gallop. ABDOMEN: Soft, tender at suprapubic area, nondistended, normoactive bowel sounds, EXTREMITIES: 2+ pulses, warm, well-perfused, no edema. Laboratory Results - last 24 hr 12/23/19 12/23/19 12/23/19 14:42 17:14 22:45 WBC RBC Hgb Hct MCV MCH MCHC RDW Plt Count MPV Sodium Potassium Chloride Carbon Dioxide Anion Gap BUN Creatinine Est GFR (CKD-EPI)AfAm Est GFR (CKD-EPI)NonAf POC Glucometer 234 206 277 Random Glucose Calcium Phosphorus Magnesium 12/24/19 12/24/19 12/24/19 05:54 08:40 08:40 WBC 16.5 H RBC 3.01 L Hgb 8.2 L Hct 25.7 L MCV 85.4 MCH 27.1 MCHC 31.7 L RDW 15.8 H Plt Count 317 MPV 7.9 Sodium 135 L Potassium 3.8 Chloride 102 Carbon Dioxide 22 Anion Gap 11 BUN 67.8 H Creatinine 7.0 H Est GFR (CKD-EPI)AfAm 7.87 Est GFR (CKD-EPI)NonAf 6.79 POC Glucometer 252 Random Glucose 249 H Calcium 8.5 Phosphorus 8.2 H Magnesium 2.2 12/24/19 11:24 WBC RBC Hgb Hct MCV MCH MCHC RDW Plt Count MPV Sodium Potassium Chloride Carbon Dioxide Anion Gap BUN Creatinine Est GFR (CKD-EPI)AfAm Est GFR (CKD-EPI)NonAf POC Glucometer 193 Random Glucose Calcium Phosphorus Magnesium Active Medications Generic Name Dose Route Start Last Admin Trade Name Freq PRN Reason Stop Dose Admin Acetaminophen 650 mg 12/23/19 19:14 12/24/19 06:13 Tylenol - PO 650 mg Q4H PRN Administration pain of 3-6 Albuterol Sulfate 1 puff 12/23/19 19:14 Ventolin Hfa Inhaler - IH Q4H PRN ASTHMA Budesonide/Formoterol Fumarate 2 puff 12/23/19 22:00 12/24/19 11:27 Symbicort 80/4.5mcg - IH 2 puff BID UMBERTO Administration Docusate Sodium 100 mg 12/23/19 22:00 12/24/19 06:13 Colace - PO 100 mg TID UMBERTO Administration Fentanyl 50 mcg 12/23/19 19:14 Sublimaze Injection - IVPUSH [id number] PRN PAIN-PACU ORDER X 4 DOSES ONLY Gabapentin 600 mg 12/23/19 22:00 12/24/19 06:16 Neurontin - PO 600 mg TID UMBERTO Administration Sodium Chloride 250 mls @ 3,000 mls/hr 12/23/19 19:14 Normal Saline - IV 12/24/19 10:13 PRN PRN Hypotension during Dialysis Insulin Aspart 1 vial 12/23/19 22:00 12/24/19 11:25 Novolog Vial Sliding Scale - SQ Not Given ACHS UMBERTO Protocol Morphine Sulfate 2 mg 12/23/19 19:14 Morphine Sulfate IVPUSH Q4H PRN PAIN LEVEL 6-10 Ondansetron HCl 4 mg 12/23/19 19:14 Zofran Injection IVPUSH Q6H PRN NAUSEA AND/OR VOMITING Pantoprazole Sodium 40 mg 12/24/19 10:00 12/24/19 11:21 Protonix - PO 40 mg DAILY UMBERTO Administration Paroxetine HCl 10 mg 12/24/19 10:00 12/24/19 11:21 Paxil - PO 10 mg DAILY UMBERTO Administration Sevelamer Carbonate 1,600 mg 12/24/19 08:00 12/24/19 11:24 Renvela - PO 1,600 mg TIDCM UMBERTO Administration ASSESSMENT/PLAN: Ms Ramos is a 39F w a h/o Autosomal dominant Polycystic Kidney Disease, chronic anemia, Cervical CADPCKD, Chronic Anemia, Cervical CA with scheduled [employer] ANALYST-ONC procedure 12/21 for staging. The patient arrived to the hospital for abnormal vaginal bleeds and RLQ and suprapubic tenderness. #Cervical Cancer - CT A/P revealed - subpleural groundglass opacities, enlarged periaortic retroperitoneal LNs, Stable adrenal ademona, Mild R hydronephrosis, bilateral renal cysts - Patient had Cervical CA staged yesterday with Dr. Wall - POD 2 s/p Uteroscopy and attempted flex sigmoidoscopy for Staging by Dr. Wall - GRADE IIIB - unable to proceed with flexable sigmoidoscopy due to increased stool production #VICENTE secondary to Adult Polycystic Kidney Disease - POD 1 s/p Permacath placement - first day of dialysis - Continue Sevelemer - Patient awaiting placement at dialysis clinic - Hepatitis panel sent #DM 2 - Maintain on Novolog sliding scale. #Bipolar Disorder - Stable, continue Paroxetine. #HTN - Losartan held due to VICENTE #DVT Px - SCDs Visit type - Emergency Visit Emergency Visit: Yes ED Registration Date: 12/20/19 Care time: The patient presented to the Emergency Department on the above date and was hospitalized for further evaluation of their emergent condition. - New Patient This patient is new to me today: No - Critical Care Critical Care patient: No - Discharge Referral Referred to [facility] No ATTENDING PHYSICIAN STATEMENT I saw and evaluated the patient. I reviewed the resident's note and discussed the case with the resident. I agree with the resident's findings and plan as documented. SUBJECTIVE: OBJECTIVE: ASSESSMENT AND PLAN:
[2019-12-24] MEDS: MORPHINE SULFATE 2 MG/ML VIAL IVPUSH PRN (18:23)
--- NOTE | 2019-12-24 23:00 | PN ---
Progress Note (short form) - Note Progress Note: UROLOGY NOTE HX of Cervical cancer, ESRD POD 1. Rt jj stent insertion on castellanos catheter no pain, clear urine. Plan D/C jj stent as outpatient.
[2019-12-25] MEDS: MORPHINE SULFATE 2 MG/ML VIAL IVPUSH PRN ×2 (01:16→13:07)
[2019-12-25] MEDS: INSULIN SLIDING SCALE (NOVOLOG) 1 VIAL SQ SCH ×4 (06:07→21:45)
[2019-12-25] MEDS: GABAPENTIN 300 MG CAPSULE PO SCH ×3 (06:08→21:35)
[2019-12-25] MEDS: DOCUSATE SODIUM 100 MG CAPSULE (FP) PO SCH ×3 (06:08→21:35)
[2019-12-25] MEDS: PANTOPRAZOLE 40 MG TABLET PO SCH ×2 (08:16→09:32)
[2019-12-25] MEDS: SEVELAMER CARBONATE 800 MG TAB (FP) PO SCH ×3 (08:16→17:18)
[2019-12-25] MEDS: PARoxetine HCL 10 MG TABLET PO SCH ×2 (08:16→09:32)
[2019-12-25] MEDS: BUDESONIDE/FORMETEROL FUMARATE 80/4.5 mcg INHALER IH SCH ×3 (08:19→21:45)
[2019-12-25 09:00] LABS: HEMATOCRIT 24.2 % (32.4-45.2); HEMOGLOBIN 7.7 GM/dL (10.7-15.3); MCH 27.5 pg (25.7-33.7); MCHC 31.8 g/dl (32.0-36.0); MEAN CELL VOLUME 86.3 fl (80-96); MEAN PLT VOLUME 7.7 fl (7.5-11.1); PLATELET COUNT 248 K/MM3 (134-434); RBC 2.81 M/mm3 (3.60-5.2); RDW 15.8 % (11.6-15.6); WHITE BLOOD COUNT 16.3 K/mm3 (4.0-10.0)
[2019-12-25 09:27] LABS: BLOOD UREA NITROGEN 46.7 mg/dL (7-18); CALCIUM 7.9 mg/dL (8.5-10.1); CREATININE 5.2 mg/dL (0.55-1.3); MAGNESIUM 2.1 mg/dL (1.8-2.4); PHOSPHOROUS 5.5 mg/dL (2.5-4.9); POTASSIUM 4.2 mmol/L (3.5-5.1)
--- NOTE | 2019-12-25 11:24 | PN ---
Progress Note (short form) - Note Progress Note: RENAL denies complaints has a permcath Last Vital Signs Temp Pulse Resp BP Pulse Ox 99.0 F 105 H 18 117/78 98 12/25/19 08:15 12/25/19 08:15 12/25/19 08:15 12/25/19 08:15 12/25/19 08:15 lungs clear cvs s1s2 rr abd soft ext no edema neuro a+ox3 gu has a castellanos CBC, BMP 12/25/19 08:10 12/25/19 08:10 Current Medications Generic Name Dose Route Start Last Admin Trade Name Freq PRN Reason Stop Dose Admin Acetaminophen 650 mg 12/23/19 19:14 12/24/19 06:13 Tylenol - PO 650 mg Q4H PRN Administration pain of 3-6 Albuterol Sulfate 1 puff 12/23/19 19:14 Ventolin Hfa Inhaler - IH Q4H PRN ASTHMA Budesonide/Formoterol Fumarate 2 puff 12/23/19 22:00 12/25/19 09:33 Symbicort 80/4.5mcg - IH Not Given BID UMBERTO Docusate Sodium 100 mg 12/23/19 22:00 12/25/19 06:08 Colace - PO 100 mg TID UMBERTO Administration Fentanyl 50 mcg 12/23/19 19:14 Sublimaze Injection - IVPUSH [id number] PRN PAIN-PACU ORDER X 4 DOSES ONLY Gabapentin 600 mg 12/23/19 22:00 12/25/19 06:08 Neurontin - PO 600 mg TID UMBERTO Administration Sodium Chloride 250 mls @ 3,000 mls/hr 12/23/19 19:14 Normal Saline - IV 12/24/19 10:13 PRN PRN Hypotension during Dialysis Insulin Aspart 1 vial 12/23/19 22:00 12/25/19 06:07 Novolog Vial Sliding Scale - SQ 2 units ACHS UMBERTO Administration Protocol Morphine Sulfate 2 mg 12/23/19 19:14 12/25/19 01:16 Morphine Sulfate IVPUSH 2 mg Q4H PRN Administration PAIN LEVEL 6-10 Ondansetron HCl 4 mg 12/23/19 19:14 Zofran Injection IVPUSH Q6H PRN NAUSEA AND/OR VOMITING Pantoprazole Sodium 40 mg 12/24/19 10:00 12/25/19 09:32 Protonix - PO Not Given DAILY UMBERTO Paroxetine HCl 10 mg 12/24/19 10:00 12/25/19 09:32 Paxil - PO Not Given DAILY UMBERTO Sevelamer Carbonate 1,600 mg 12/24/19 08:00 12/25/19 08:16 Renvela - PO 1,600 mg TIDCM UMBERTO Administration Impression 1. Acute on chronic renal insufficiency 2. Chronic anemia 3. hyperkalemia 4. Metabolic acidosis 5. DM 6. abdominal pain 7. polycystic kidney disease 8. cervical cancer Plan - renal diet - cont phos binders - will need outpt HD placement - will also need referral for transplant - voiding trial. Castellanos will increase risk of cyst infection MV
--- NOTE | 2019-12-25 14:10 | PN ---
Progress Note (short form) - Note Progress Note: SUBJECTIVE: Mild discomfort at permacath site. No fever/chills. Some ongoing PV discharge. No further diarrhea. OBJECTIVE: Afebrile, Hemodynamically stable Last Vital Signs Temp Pulse Resp BP Pulse Ox 99.0 F 105 H 18 117/78 98 12/25/19 08:15 12/25/19 08:15 12/25/19 08:15 12/25/19 08:15 12/25/19 08:15 Heart - S1, S2, RRR Lungs - clear to auscultation Abdomen - High BMI. Soft, RLQ and suprapubic tenderness. Bowel Sounds normal. Extremities - No calf tenderness. Neuro - AAO x 3. Tone/Power normal all extremities. Laboratory Results - last 24 hr 12/23/19 12/24/19 12/24/19 21:00 16:56 21:33 WBC RBC Hgb Hct MCV MCH MCHC RDW Plt Count MPV Sodium Potassium Chloride Carbon Dioxide Anion Gap BUN Creatinine Est GFR (CKD-EPI)AfAm Est GFR (CKD-EPI)NonAf POC Glucometer 274 293 Random Glucose Calcium Phosphorus Magnesium Hep A IgM Ab Confirm Negative Hep Bs Antigen Negative Hep B Core IgM Ab Negative Hepatitis C Ab (EIA) <0.1 12/25/19 12/25/19 12/25/19 05:48 08:10 08:10 WBC 16.3 H RBC 2.81 L Hgb 7.7 L Hct 24.2 L MCV 86.3 MCH 27.5 MCHC 31.8 L RDW 15.8 H Plt Count 248 D MPV 7.7 Sodium 138 Potassium 4.2 Chloride 104 Carbon Dioxide 26 Anion Gap 8 BUN 46.7 H Creatinine 5.2 H Est GFR (CKD-EPI)AfAm 11.28 Est GFR (CKD-EPI)NonAf 9.73 POC Glucometer 201 Random Glucose 198 H Calcium 7.9 L Phosphorus 5.5 H Magnesium 2.1 Hep A IgM Ab Confirm Hep Bs Antigen Hep B Core IgM Ab Hepatitis C Ab (EIA) 12/25/19 11:40 WBC RBC Hgb Hct MCV MCH MCHC RDW Plt Count MPV Sodium Potassium Chloride Carbon Dioxide Anion Gap BUN Creatinine Est GFR (CKD-EPI)AfAm Est GFR (CKD-EPI)NonAf POC Glucometer 217 Random Glucose Calcium Phosphorus Magnesium Hep A IgM Ab Confirm Hep Bs Antigen Hep B Core IgM Ab Hepatitis C Ab (EIA) Current Medications Generic Name Dose Route Start Last Admin Trade Name Freq PRN Reason Stop Dose Admin Acetaminophen 650 mg 12/23/19 19:14 12/24/19 06:13 Tylenol - PO 650 mg Q4H PRN Administration pain of 3-6 Albuterol Sulfate 1 puff 12/23/19 19:14 Ventolin Hfa Inhaler - IH Q4H PRN ASTHMA Budesonide/Formoterol Fumarate 2 puff 12/23/19 22:00 12/25/19 09:33 Symbicort 80/4.5mcg - IH Not Given BID UMBERTO Docusate Sodium 100 mg 12/23/19 22:00 12/25/19 13:07 Colace - PO 100 mg TID UMBERTO Administration Fentanyl 50 mcg 12/23/19 19:14 Sublimaze Injection - IVPUSH [id number] PRN PAIN-PACU ORDER X 4 DOSES ONLY Gabapentin 600 mg 12/23/19 22:00 12/25/19 13:07 Neurontin - PO 600 mg TID UMBERTO Administration Sodium Chloride 250 mls @ 3,000 mls/hr 12/23/19 19:14 Normal Saline - IV 12/24/19 10:13 PRN PRN Hypotension during Dialysis Insulin Aspart 1 vial 12/23/19 22:00 12/25/19 11:41 Novolog Vial Sliding Scale - SQ 2 units ACHS UMBERTO Administration Protocol Morphine Sulfate 2 mg 12/23/19 19:14 12/25/19 13:07 Morphine Sulfate IVPUSH 2 mg Q4H PRN Administration PAIN LEVEL 6-10 Ondansetron HCl 4 mg 12/23/19 19:14 Zofran Injection IVPUSH Q6H PRN NAUSEA AND/OR VOMITING Pantoprazole Sodium 40 mg 12/24/19 10:00 12/25/19 09:32 Protonix - PO Not Given DAILY UMBERTO Paroxetine HCl 10 mg 12/24/19 10:00 12/25/19 09:32 Paxil - PO Not Given DAILY UMBEROT Sevelamer Carbonate 1,600 mg 12/24/19 08:00 12/25/19 11:42 Renvela - PO 1,600 mg TIDCM UMBERTO Administration Home Medications Medication Instructions Recorded Albuterol 0.083% Nebulizer Sarina 1 neb NEB Q6H PRN 10/06/17 [Ventolin 0.083% Nebulizer Soln -] Budesonide/Formeterol Fumarate 2 puff IH BID 10/06/17 [SYMBICORT 80/4.5mcg -] Insulin Glargine,Hum.rec.anlog 50 unit SQ BID 10/06/17 [Lantus] Insulin Lispro [Humalog] 30 unit SQ TID 04/18/18 Esomeprazole Magnesium [Nexium 40 mg PO DAILY 05/28/18 24Hr] Gabapentin [Neurontin] 600 mg PO TID 10/09/19 Sevelamer Carbonate [Renvela -] 800 mg PO TIDCM #90 tab 10/12/19 Dulaglutide [Trulicity] 1.5 mg SQ Q7D 11/18/19 Losartan Potassium 50 mg PO DAILY 11/18/19 Paroxetine HCl [Paxil -] 10 mg PO DAILY 11/18/19 Docusate Sodium [Colace -] 100 mg PO TID capsule 11/23/19 Sodium Bicarbonate - 1,300 mg PO BID tablet 11/23/19 ASSESSMENT AND PLAN: 39 year old female with history of ADPCKD, Chronic Anemia, Cervical CA (scheduled GYNONC procedure 12/21) presented to ED with worsening abdominal pain, and bloody vaginal discharge. CT A/P - subpleural groundglass opacities, enlarged periaortic retroperitoneal LNs, Stable adrenal ademona, Mild R hydronephrosis, bilateral renal cysts 1. Cervical Cancer POD 3 s/p Uteroscopy and attempted flex sigmoidoscopy for Staging by Dr. Wall - GRADE IIIB Further management by GYNONC. 2. VICENTE on CKD4/5 secondary to Adult Polycystic Kidney Disease with Hyperkalemia and Metabolic Acidosis POD 2 s/p Permacath placement s/p first HD session 12/23 s/p Lokelma Bicarb and IV fluids discontinued by Nephrology Continue Sevelemer Hepatitis panel negative. 3. DM 2 - Glargine, Lispro, Trulicity held in favor of Novolog sliding scale. 4. Bipolar Disorder - Stable, continue Paroxetine. 5. HTN - Losartan held due to VICENTE on CKD with hyperkalemia. 6. Mild R Hydronephrosis with some monique-renal stranding - seen by Urology - POD 3 s/p cystoscopy and R JJ stenting. 7. Normocytic Anemia - sec to progression of CKD/Chronic disease - No Iron /B12/Folate deficiency. 8. Leukocytosis - likely reactive sec to surgical procedures +/- cancer. No signs of active infection. Afebrile. Will monitor. DVT Px - SCDs. Heparin/Lovenox held due to bloody PV discharge. Visit type - Emergency Visit Emergency Visit: Yes ED Registration Date: 12/20/19 Care time: The patient presented to the Emergency Department on the above date and was hospitalized for further evaluation of their emergent condition. - New Patient This patient is new to me today: No - Critical Care Critical Care patient: No - Discharge Referral Referred to [facility] No
[2019-12-26] MEDS: GABAPENTIN 300 MG CAPSULE PO SCH ×3 (06:03→21:34)
[2019-12-26] MEDS: DOCUSATE SODIUM 100 MG CAPSULE (FP) PO SCH ×3 (06:03→21:35)
[2019-12-26] MEDS: INSULIN SLIDING SCALE (NOVOLOG) 1 VIAL SQ SCH ×4 (06:33→21:35)
[2019-12-26] MEDS: SEVELAMER CARBONATE 800 MG TAB (FP) PO SCH ×3 (09:00→17:12)
[2019-12-26] MEDS: PANTOPRAZOLE 40 MG TABLET PO SCH (09:07)
[2019-12-26] MEDS: PARoxetine HCL 10 MG TABLET PO SCH (09:08)
[2019-12-26] MEDS: BUDESONIDE/FORMETEROL FUMARATE 80/4.5 mcg INHALER IH SCH ×2 (09:08→21:43)
[2019-12-26] MEDS: MORPHINE SULFATE 2 MG/ML VIAL IVPUSH PRN (09:22)
[2019-12-26] MEDS ORDERED: SODIUM CHLORIDE 250 ML IV PRN (11:02)
[2019-12-26 11:36] LABS: BASO % 0.3 % (0-2.0); EOS % 0.8 % (0-4.5); HEMATOCRIT 26.8 % (32.4-45.2); HEMOGLOBIN 8.3 GM/dL (10.7-15.3); LYMPH % 10.3 % (8-40); MCH 26.7 pg (25.7-33.7); MEAN PLT VOLUME 7.9 fl (7.5-11.1); MONO % 6.3 % (3.8-10.2); NEUT % 82.3 % (42.8-82.8); PLATELET COUNT 211 K/MM3 (134-434); RBC 3.12 M/mm3 (3.60-5.2); RDW 15.7 % (11.6-15.6); WHITE BLOOD COUNT 15.5 K/mm3 (4.0-10.0)
[2019-12-26 12:05] LABS: BLOOD UREA NITROGEN 54.9 mg/dL (7-18); CALCIUM 8.1 mg/dL (8.5-10.1); CREATININE 5.9 mg/dL (0.55-1.3); PHOSPHOROUS 6.4 mg/dL (2.5-4.9); POTASSIUM 4.2 mmol/L (3.5-5.1)
[2019-12-26] MEDS: EPOETIN ALFA 20,000 UNIT/1 ML VIAL IVPUSH ONE ×2 (13:00→14:32)
--- NOTE | 2019-12-26 14:16 | PN ---
Progress Note, Physician Chief Complaint: Progressive CKD History of Present Illness: Seen and examined during dialysis. Awake and alert offers no acute complaints catheter with good flow denies any sob, cp, fever or chills no cramping UF goal is 1L making urine - Current Medication List Current Medications: Active Medications Acetaminophen (Tylenol -) 650 mg PO Q4H PRN PRN Reason: pain of 3-6 Last Admin: 12/24/19 06:13 Dose: 650 mg Documented by: Albuterol Sulfate (Ventolin Hfa Inhaler -) 1 puff IH Q4H PRN PRN Reason: ASTHMA Budesonide/Formoterol Fumarate (Symbicort 80/4.5mcg -) 2 puff IH BID [facility] Last Admin: 12/26/19 09:08 Dose: 2 puff Documented by: Docusate Sodium (Colace -) 100 mg PO TID [facility] Last Admin: 12/26/19 06:03 Dose: 100 mg Documented by: Gabapentin (Neurontin -) 600 mg PO TID [facility] Last Admin: 12/26/19 06:03 Dose: 600 mg Documented by: Sodium Chloride (Normal Saline -) 250 mls @ 3,000 mls/hr IV PRN PRN PRN Reason: Hypotension during Dialysis Stop: 12/27/19 11:03 Insulin Aspart (Novolog Vial Sliding Scale -) 1 vial SQ ACHS [facility]; Protocol Last Admin: 12/26/19 11:21 Dose: 4 units Documented by: Ondansetron HCl (Zofran Injection) 4 mg IVPUSH Q6H PRN PRN Reason: NAUSEA AND/OR VOMITING Oxycodone HCl (Roxicodone -) 5 mg PO Q6H PRN PRN Reason: PAIN LEVEL 6-10 Pantoprazole Sodium (Protonix -) 40 mg PO DAILY [facility] Last Admin: 12/26/19 09:07 Dose: 40 mg Documented by: Paroxetine HCl (Paxil -) 10 mg PO DAILY [facility] Last Admin: 12/26/19 09:08 Dose: 10 mg Documented by: Sevelamer Carbonate (Renvela -) 1,600 mg PO TIDCM [facility] Last Admin: 12/26/19 11:21 Dose: 1,600 mg Documented by: - Objective Vital Signs: Vital Signs Temperature 98 F 12/26/19 09:50 Pulse Rate 94 H 12/26/19 13:35 Respiratory Rate 15 08/03/20 13:35 Blood Pressure 127/39 L 12/26/19 13:35 O2 Sat by Pulse Oximetry (%) 100 12/26/19 09:50 Constitutional: Yes: No Distress, Calm HENT: Yes: Atraumatic Neck: Yes: Supple Respiratory: Yes: Regular Gastrointestinal: Yes: Normal Bowel Sounds, Soft, Abdomen, Obese Extremities: No: Cyanosis Edema: Yes Neurological: Yes: Alert, Oriented Labs: CBC, BMP 12/26/19 10:33 12/26/19 10:33 INR, PTT INR 1.06 (0.83-1.09) 12/20/19 13:17 Assessment/Plan 39 year old female with pmhx of dm, anemia, asthma, depression anxiety, PKD, and bipolar who presents with lower abdominal pain and found to have progressive CKD. 1. 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 Hydronphrosis s/p stent placement 3. Anemia in setting of CKD 4. Cerival Ca 5. DM Tolerating 2nd dialysis session well today. Will need outpatient HD unit placement for 3x weekly dialysis. Will obtain transplant evaluation as a outpatient. AVF placement to be done as an outpatient as well. Continue EKTA wit HD Urology follow up BODY STYLIST follow up if Contrast CT is needed to stage cervical Ca it can be obtained prior to dialysis Thank you Brian Dahl DO
[2019-12-26] MEDS ORDERED: POLYETHYLENE GLYCOL 3350 119 GM BTL PO SCH (15:30)
[2019-12-26] MEDS ORDERED: SENNOSIDES 8.6MG TABLET (FP) PO PRN (15:42)
--- NOTE | 2019-12-26 15:48 | PN ---
Teaching Attending Note Name of Resident: Erick Shell ATTENDING PHYSICIAN STATEMENT I saw and evaluated the patient. I reviewed the resident's note and discussed the case with the resident. I agree with the resident's findings and plan as documented. SUBJECTIVE: Mild discomfort at permacath site. No fever/chills. Some ongoing PV discharge. Complains of constipation now. OBJECTIVE: Afebrile, Hemodynamically stable Last Vital Signs Temp Pulse Resp BP Pulse Ox 98.6 F 93 H 16 152/83 98 12/26/19 14:30 12/26/19 14:30 12/26/19 14:30 12/26/19 14:30 12/26/19 14:30 Heart - S1, S2, RRR Lungs - clear to auscultation. R sided permacath - site clean. Abdomen - High BMI. Soft, RLQ and suprapubic tenderness improved. Bowel Sounds normal. Extremities - No calf tenderness. Neuro - AAO x 3. Tone/Power normal all extremities. Laboratory Results - last 24 hr 12/25/19 12/25/19 12/26/19 17:12 21:38 06:31 WBC RBC Hgb Hct MCV MCH MCHC RDW Plt Count MPV Absolute Neuts (auto) Neutrophils % Lymphocytes % Monocytes % Eosinophils % Basophils % Nucleated RBC % Sodium Potassium Chloride Carbon Dioxide Anion Gap BUN Creatinine Est GFR (CKD-EPI)AfAm Est GFR (CKD-EPI)NonAf POC Glucometer 214 262 233 Random Glucose Calcium Phosphorus 12/26/19 12/26/19 12/26/19 10:33 10:33 11:19 WBC 15.5 H RBC 3.12 L Hgb 8.3 L Hct 26.8 L MCV 86.0 MCH 26.7 MCHC 31.0 L RDW 15.7 H Plt Count 211 MPV 7.9 Absolute Neuts (auto) 12.8 H Neutrophils % 82.3 Lymphocytes % 10.3 D Monocytes % 6.3 Eosinophils % 0.8 Basophils % 0.3 Nucleated RBC % 0 Sodium 136 Potassium 4.2 Chloride 102 Carbon Dioxide 20 L Anion Gap 13 BUN 54.9 H Creatinine 5.9 H Est GFR (CKD-EPI)AfAm 9.68 Est GFR (CKD-EPI)NonAf 8.35 POC Glucometer 262 Random Glucose 231 H Calcium 8.1 L Phosphorus 6.4 H Current Medications Generic Name Dose Route Start Last Admin Trade Name Freq PRN Reason Stop Dose Admin Acetaminophen 650 mg 12/23/19 19:14 12/24/19 06:13 Tylenol - PO 650 mg Q4H PRN Administration pain of 3-6 Albuterol Sulfate 1 puff 12/23/19 19:14 Ventolin Hfa Inhaler - IH Q4H PRN ASTHMA Budesonide/Formoterol Fumarate 2 puff 12/23/19 22:00 12/26/19 09:08 Symbicort 80/4.5mcg - IH 2 puff BID UMBERTO Administration Docusate Sodium 100 mg 12/23/19 22:00 12/26/19 14:47 Colace - PO 100 mg TID UMBERTO Administration Gabapentin 600 mg 12/23/19 22:00 12/26/19 14:47 Neurontin - PO 600 mg TID UMBERTO Administration Sodium Chloride 250 mls @ 3,000 mls/hr 12/26/19 11:02 Normal Saline - IV 12/27/19 11:03 PRN PRN Hypotension during Dialysis Insulin Aspart 1 vial 12/23/19 22:00 12/26/19 11:21 Novolog Vial Sliding Scale - SQ 4 units ACHS UMBERTO Administration Protocol Ondansetron HCl 4 mg 12/23/19 19:14 Zofran Injection IVPUSH Q6H PRN NAUSEA AND/OR VOMITING Oxycodone HCl 5 mg 12/26/19 10:12 Roxicodone - PO Q6H PRN PAIN LEVEL 6-10 Pantoprazole Sodium 40 mg 12/24/19 10:00 12/26/19 09:07 Protonix - PO 40 mg DAILY UMBERTO Administration Paroxetine HCl 10 mg 12/24/19 10:00 12/26/19 09:08 Paxil - PO 10 mg DAILY UMBERTO Administration Polyethylene Glycol 17 gm 12/26/19 15:30 Miralax (For Daily Use) - PO DAILY UMBERTO Senna 2 tab 12/26/19 15:42 Senna - PO HS PRN CONSTIPATION Sevelamer Carbonate 1,600 mg 12/24/19 08:00 12/26/19 11:21 Renvela - PO 1,600 mg TIDCM UMBERTO Administration Home Medications Medication Instructions Recorded Albuterol 0.083% Nebulizer Sarina 1 neb NEB Q6H PRN 10/06/17 [Ventolin 0.083% Nebulizer Soln -] Budesonide/Formeterol Fumarate 2 puff IH BID 10/06/17 [SYMBICORT 80/4.5mcg -] Insulin Glargine,Hum.rec.anlog 50 unit SQ BID 10/06/17 [Lantus] Insulin Lispro [Humalog] 30 unit SQ TID 04/18/18 Esomeprazole Magnesium [Nexium 40 mg PO DAILY 05/28/18 24Hr] Gabapentin [Neurontin] 600 mg PO TID 10/09/19 Sevelamer Carbonate [Renvela -] 800 mg PO TIDCM #90 tab 10/12/19 Dulaglutide [Trulicity] 1.5 mg SQ Q7D 11/18/19 Losartan Potassium 50 mg PO DAILY 11/18/19 Paroxetine HCl [Paxil -] 10 mg PO DAILY 11/18/19 Docusate Sodium [Colace -] 100 mg PO TID capsule 11/23/19 Sodium Bicarbonate - 1,300 mg PO BID tablet 11/23/19 ASSESSMENT AND PLAN: 39 year old female with history of ADPCKD, Chronic Anemia, Cervical CA (scheduled GYNONC procedure 12/21) presented to ED with worsening abdominal pain, and bloody vaginal discharge. CT A/P - subpleural groundglass opacities, enlarged periaortic retroperitoneal LNs, Stable adrenal ademona, Mild R hydronephrosis, bilateral renal cysts 1. Cervical Cancer POD 4 s/p Uteroscopy and attempted flex sigmoidoscopy for Staging by Dr. Wall - GRADE IIIB Further management by GYNONC. 2. VICENTE on CKD4/5 secondary to Adult Polycystic Kidney Disease with Hyperkalemia and Metabolic Acidosis POD 3 s/p Permacath placement s/p first HD session 12/23, second session 12/25 s/p Lokelma Bicarb and IV fluids discontinued by Nephrology Continue Sevelemer Hepatitis panel negative. Awaiting placement at outpatient HD center. For eval for AV fistula as out-patient. 3. DM 2 - Glargine, Lispro, Trulicity held in favor of Novolog sliding scale. 4. Bipolar Disorder - Stable, continue Paroxetine. 5. HTN - Losartan held due to VICENTE on CKD with hyperkalemia. 6. Mild R Hydronephrosis with some monique-renal stranding - seen by Urology - POD 4 s/p cystoscopy and R JJ stenting. 7. Normocytic Anemia - sec to progression of CKD/Chronic disease - No Iron/B12/Folate deficiency. Further management as per Nephrology 8. Leukocytosis - likely reactive sec to surgical procedures +/- cancer. No signs of active infection. Afebrile. Will monitor. DVT Px - SCDs. Heparin/Lovenox held due to bloody PV discharge.
[2019-12-26] MEDS ORDERED: POLYETHYLENE GLYCOL 3350 119 GM BTL PO PRN (16:12)
--- NOTE | 2019-12-26 16:50 | CONSULT ---
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 She was admitted in acute renal failure. CT A/P show mild R hydroureteronephrosis, bilateral renal cysts c/w PKD, enlarged left paraaortic retroperitoneal LN, stable L adrenal adenoma and splenomegaly. She underwent R JJ ureteral stent placement by Dr. Sarbjit Conner which showed bullous edema at the base of the bladder with extrinsic compression. EUA by Dr. Liliana Wall showed a 6-cm cervix mass involving the bilateral parametria and a fixed R pelvic sidewall, but no vaginal involvement. Proctoscopy could not be done due to poor prep. She had a permacath placed and is receiving hemodialysis. Currently reports intermittent pain in suprapubic region controlled with analgesics. Recently had diarrhea without blood, denies nausea, hematuria, weight loss, fever, chills, or incontinence. No prior hx of radiation therapy, colitis/IBD, collagen vascular disorders. Rates pain 4/[address] Wall requested evaluation for RT and further management of cervix cancer. - History Source History Provided By: Patient, Medical Record Limitations to Obtaining History: No Limitations - Past Medical History Pulmonary: Yes: Asthma Renal/: Yes: Renal Inusuff, Other (PCKD) ...LMP: 11/19/19 ...: No Heme/Onc: Yes: Anemia Infectious Disease: Yes: Other (HPV+, COVID+ (3mo ago)) Psych: Yes: Anxiety, Bipolar Endocrine: Yes: Diabetes Mellitus - Past Surgical History Past Surgical History: Yes: - Alcohol/Substance Use Hx Alcohol Use: No History of Substance Use: reports: None - Smoking History Smoking history: Former smoker Have you smoked in the past 12 months: No Aproximately how many cigarettes per day: 3 If you are a former smoker, when did you quit?: 2004 - Social History Usual Living Arrangement: With Child (Age 10, 16) History of Recent Travel: No Home Medications - Allergies Allergies/Adverse Reactions: Allergies Allergy/AdvReac Type Severity Reaction Status Date / Time No Known Allergies Allergy Verified 12/20/19 12:45 - Home Medications Home Medications: Ambulatory Orders Albuterol 0.083% Nebulizer Sarina [Ventolin 0.083% Nebulizer Soln -] 1 neb NEB Q6H PRN 10/06/17 Budesonide/Formeterol Fumarate [SYMBICORT 80/4.5mcg -] 2 puff IH BID 10/06/17 Insulin Glargine,Hum.rec.anlog [Lantus] 50 unit SQ BID 10/06/17 Insulin Lispro [Humalog] 30 unit SQ TID 04/18/18 Esomeprazole Magnesium [Nexium 24Hr] 40 mg PO DAILY 05/28/18 Gabapentin [Neurontin] 600 mg PO TID 10/09/19 Sevelamer Carbonate [Renvela -] 800 mg PO TIDCM #90 tab 10/12/19 Dulaglutide [Trulicity] 1.5 mg SQ Q7D 11/18/19 Losartan Potassium 50 mg PO DAILY 11/18/19 Paroxetine HCl [Paxil -] 10 mg PO DAILY 11/18/19 Docusate Sodium [Colace -] 100 mg PO TID capsule 11/23/19 Sodium Bicarbonate - 1,300 mg PO BID tablet 11/23/19 Family Medical History Family History: Denies (cancer) Review of Systems - Review of Systems Constitutional: reports: No Symptoms Eyes: reports: No Symptoms HENT: reports: No Symptoms Neck: reports: No Symptoms Cardiovascular: reports: No Symptoms Respiratory: reports: No Symptoms Gastrointestinal: reports: Constipation, Diarrhea Genitourinary: reports: Vaginal Bleeding (discharge) Breasts: reports: No Symptoms Reported Musculoskeletal: reports: No Symptoms Neurological: reports: No Symptoms Pain Intensity: 4 Physical Exam Vital Signs: Vital Signs Temperature 98.6 F 12/26/19 14:30 Pulse Rate 93 H 12/26/19 14:30 Respiratory Rate 16 12/26/19 14:30 Blood Pressure 152/83 12/26/19 14:30 O2 Sat by Pulse Oximetry (%) 98 12/26/19 14:30 Constitutional: Yes: No Distress, Obese Eyes: Yes: WNL HENT: Yes: WNL Neck: Yes: WNL Gastrointestinal: Yes: Soft, Abdomen, Obese, Tenderness (suprapubic) Renal/: Yes: Vaginal Bleeding, Vaginal Discharge Breast(s): Yes: WNL Musculoskeletal: Yes: WNL Extremities: Yes: WNL Edema: No Neurological: Yes: WNL Psychiatric: Yes: Alert, Oriented Labs: CBC, BMP 12/26/19 10:33 12/26/19 10:33 Imaging - Results Cat Scan: Report Reviewed, Image Reviewed (See HPI) Assessment/Plan A 39 yo woman with PKD and at least FIGO stage IIIB SCC of cervix with right pelvic side wall involvement s/p ureteral stenting for R hydronephrosis. Pending medical and renal stabilization, she will need CT chest (in view of para aortic fredi involvement) and outpatient PET-CT. If no evidence of additional disease on work up, standard of care includes external beam RT (5-6 weeks) and brachytherapy (4-5 insertions), with concurrent chemotherapy. Will need medical oncology input on chemotherapy options while on HD. Diagnosis and management of locally advanced cervix cancer discussed with the patient, questions and concerns addressed. She agrees to follow up with us when discharged.
--- NOTE | 2019-12-26 18:36 | PN ---
Physical Exam: SUBJECTIVE: Patient seen and examined at bedside. Patient denies pain on urination. Able to urinate well. Patient complains of not having BM for few days. Patient otherwise has no significant events overnight. OBJECTIVE: Vital Signs Period Temp Pulse Resp BP Sys/Farah Pulse Ox Last 24 Hr 98 F-98.6 F 47-99 14-19 106-159/39-98 95-100 GENERAL: The patient is awake, alert, and fully oriented, in no acute distress. HEAD: Normal with no signs of trauma. LUNGS: Breath sounds equal, clear to auscultation bilaterally, no wheezes, no crackles, no accessory muscle use. HEART: Regular rate and rhythm, S1, S2 without murmur, rub or gallop. ABDOMEN: mild suprapubic tenderness EXTREMITIES: 2+ pulses, warm, well-perfused, no edema. Laboratory Results - last 24 hr 12/25/19 12/26/19 12/26/19 21:38 06:31 10:33 WBC 15.5 H RBC 3.12 L Hgb 8.3 L Hct 26.8 L MCV 86.0 MCH 26.7 MCHC 31.0 L RDW 15.7 H Plt Count 211 MPV 7.9 Absolute Neuts (auto) 12.8 H Neutrophils % 82.3 Lymphocytes % 10.3 D Monocytes % 6.3 Eosinophils % 0.8 Basophils % 0.3 Nucleated RBC % 0 Sodium Potassium Chloride Carbon Dioxide Anion Gap BUN Creatinine Est GFR (CKD-EPI)AfAm Est GFR (CKD-EPI)NonAf POC Glucometer 262 233 Random Glucose Calcium Phosphorus 12/26/19 12/26/19 12/26/19 10:33 11:19 17:06 WBC RBC Hgb Hct MCV MCH MCHC RDW Plt Count MPV Absolute Neuts (auto) Neutrophils % Lymphocytes % Monocytes % Eosinophils % Basophils % Nucleated RBC % Sodium 136 Potassium 4.2 Chloride 102 Carbon Dioxide 20 L Anion Gap 13 BUN 54.9 H Creatinine 5.9 H Est GFR (CKD-EPI)AfAm 9.68 Est GFR (CKD-EPI)NonAf 8.35 POC Glucometer 262 236 Random Glucose 231 H Calcium 8.1 L Phosphorus 6.4 H Active Medications Generic Name Dose Route Start Last Admin Trade Name Freq PRN Reason Stop Dose Admin Acetaminophen 650 mg 12/23/19 19:14 12/24/19 06:13 Tylenol - PO 650 mg Q4H PRN Administration pain of 3-6 Albuterol Sulfate 1 puff 12/23/19 19:14 Ventolin Hfa Inhaler - IH Q4H PRN ASTHMA Budesonide/Formoterol Fumarate 2 puff 12/23/19 22:00 12/26/19 09:08 Symbicort 80/4.5mcg - IH 2 puff BID UMBERTO Administration Docusate Sodium 100 mg 12/23/19 22:00 12/26/19 14:47 Colace - PO 100 mg TID UMBERTO Administration Gabapentin 600 mg 12/23/19 22:00 12/26/19 14:47 Neurontin - PO 600 mg TID UMBERTO Administration Sodium Chloride 250 mls @ 3,000 mls/hr 12/26/19 11:02 Normal Saline - IV 12/27/19 11:03 PRN PRN Hypotension during Dialysis Insulin Aspart 1 vial 12/23/19 22:00 12/26/19 17:12 Novolog Vial Sliding Scale - SQ 2 units ACHS UMBERTO Administration Protocol Ondansetron HCl 4 mg 12/23/19 19:14 Zofran Injection IVPUSH Q6H PRN NAUSEA AND/OR VOMITING Oxycodone HCl 5 mg 12/26/19 10:12 Roxicodone - PO Q6H PRN PAIN LEVEL 6-10 Pantoprazole Sodium 40 mg 12/24/19 10:00 12/26/19 09:07 Protonix - PO 40 mg DAILY UMBERTO Administration Paroxetine HCl 10 mg 12/24/19 10:00 12/26/19 09:08 Paxil - PO 10 mg DAILY UMBERTO Administration Polyethylene Glycol 17 gm 12/26/19 16:12 Miralax (For Daily Use) - PO DAILY PRN CONSTIPATION Senna 2 tab 12/26/19 22:00 Senna - PO HS UMBERTO Sevelamer Carbonate 1,600 mg 12/24/19 08:00 12/26/19 17:12 Renvela - PO 1,600 mg TIDCM UMBERTO Administration ASSESSMENT/PLAN: Ms Ramos is a 39F w a h/o Autosomal dominant Polycystic Kidney Disease, chronic anemia, Cervical CADPCKD, Chronic Anemia, Cervical CA with scheduled COUNTER CASER-ONC procedure 12/21 for staging. The patient arrived to the hospital for abnormal vaginal bleeds and RLQ and suprapubic tenderness. #Cervical Cancer - CT A/P revealed - subpleural groundglass opacities, enlarged periaortic retroperitoneal LNs, Stable adrenal ademona, Mild R hydronephrosis, bilateral renal cysts - Patient had Cervical CA staged yesterday with Dr. Wall - POD 4 s/p Uteroscopy and attempted flex sigmoidoscopy for Staging by Dr. Wall - GRADE IIIB - unable to proceed with flexable sigmoidoscopy due to increased stool production #VICENTE secondary to Adult Polycystic Kidney Disease - POD 3 s/p Permacath placement - second day of HD - Continue Sevelemer - Patient awaiting placement at dialysis clinic per Social work - Hepatitis panel negative #DM 2 - Maintain on Novolog sliding scale. - Glargine, lispro, and trulicity home meds were held #Bipolar Disorder - Stable, continue Paroxetine. #HTN - Losartan held due to VICENTE #DVT Px - SCDs Visit type - Emergency Visit Emergency Visit: Yes ED Registration Date: 12/20/19 Care time: The patient presented to the Emergency Department on the above date and was hospitalized for further evaluation of their emergent condition. - New Patient This patient is new to me today: No - Critical Care Critical Care patient: No - Discharge Referral Referred to [facility] Med P.C.: No ATTENDING PHYSICIAN STATEMENT I saw and evaluated the patient. I reviewed the resident's note and discussed the case with the resident. I agree with the resident's findings and plan as documented. SUBJECTIVE: OBJECTIVE: ASSESSMENT AND PLAN:
[2019-12-26] MEDS: SENNOSIDES 8.6MG TABLET (FP) PO SCH (21:34)
[2019-12-27] MEDS: oxyCODONE HCL 5 MG TABLET PO PRN ×2 (02:44→19:46)
[2019-12-27] MEDS: GABAPENTIN 300 MG CAPSULE PO SCH ×3 (06:16→21:49)
[2019-12-27] MEDS: ACETAMINOPHEN 325 MG TABLET (FP) PO PRN ×2 (06:16→21:49)
[2019-12-27] MEDS: DOCUSATE SODIUM 100 MG CAPSULE (FP) PO SCH ×3 (06:16→21:49)
[2019-12-27] MEDS: INSULIN SLIDING SCALE (NOVOLOG) 1 VIAL SQ SCH ×4 (06:17→21:50)
[2019-12-27 08:05] LABS: HEMATOCRIT 22.2 % (32.4-45.2); MCH 27.1 pg (25.7-33.7); MCHC 31.7 g/dl (32.0-36.0); MEAN CELL VOLUME 85.5 fl (80-96); PLATELET COUNT 176 K/MM3 (134-434); RDW 15.3 % (11.6-15.6); WHITE BLOOD COUNT 13.5 K/mm3 (4.0-10.0)
[2019-12-27 08:42] LABS: POTASSIUM 3.7 mmol/L (3.5-5.1)
[2019-12-27] MEDS: SEVELAMER CARBONATE 800 MG TAB (FP) PO SCH ×3 (08:45→17:20)
[2019-12-27 08:53] LABS: BLOOD UREA NITROGEN 36.7 mg/dL (7-18); CALCIUM 7.7 mg/dL (8.5-10.1); CREATININE 4.4 mg/dL (0.55-1.3); MAGNESIUM 2.1 mg/dL (1.8-2.4); PHOSPHOROUS 4.9 mg/dL (2.5-4.9)
[2019-12-27] MEDS: PANTOPRAZOLE 40 MG TABLET PO SCH (09:56)
[2019-12-27] MEDS: PARoxetine HCL 10 MG TABLET PO SCH (09:56)
[2019-12-27] MEDS: BUDESONIDE/FORMETEROL FUMARATE 80/4.5 mcg INHALER IH SCH ×2 (09:57→21:50)
[2019-12-27] MEDS ORDERED: INSULIN (NOVOLOG) ASPART 100 UNITS/ML 10ML VIAL ONE (11:54)
--- NOTE | 2019-12-27 15:34 | PN ---
Teaching Attending Note Name of Resident: Erick Shell ATTENDING PHYSICIAN STATEMENT I saw and evaluated the patient. I reviewed the resident's note and discussed the case with the resident. I agree with the resident's findings and plan as documented. SUBJECTIVE: Seen and examined at bedside. No complaints. Hgb trending down to 7. Will transfuse 1 unit. Pending placement and outpt HD center OBJECTIVE: Last Vital Signs Temp Pulse Resp BP Pulse Ox 98.3 F 90 16 134/79 99 12/27/19 10:00 12/27/19 10:00 12/27/19 10:00 12/27/19 10:00 12/27/19 10:00 PE: Per resident note Labs/Imaging: reviewed ASSESSMENT AND PLAN: 39 year old female with history of ADPCKD, Chronic Anemia, Cervical CA (scheduled GYNONC procedure 12/21) presented to ED with worsening abdominal pain, and bloody vaginal discharge. CT A/P - subpleural groundglass opacities, enlarged periaortic retroperitoneal LNs, Stable adrenal ademona, Mild R hydronephrosis, bilateral renal cysts # Cervical Cancer POD 4 s/p Uteroscopy and attempted flex sigmoidoscopy for Staging by Dr. Wall - GRADE IIIB Further management by GYNONC. -will get CT chest for staging -outpt PET scan -outpt f/u with rad onc and circulation crew leader onc # VICENTE on CKD4/5 secondary to Adult Polycystic Kidney Disease with Hyperkalemia and Metabolic Acidosis POD 3 s/p Permacath placement s/p first HD session 12/23, second session 8 s/p Lokelma Bicarb and IV fluids discontinued by Nephrology Continue Sevelemer Hepatitis panel negative. Awaiting placement at outpatient HD center. For eval for AV fistula as out-patient. # DM 2 - Glargine, Lispro, Trulicity held in favor of Novolog sliding scale. # Bipolar Disorder - Stable, continue Paroxetine. # HTN - Losartan held due to VICENTE on CKD with hyperkalemia. # Mild R Hydronephrosis with some monique-renal stranding - seen by Urology - POD 4 s/p cystoscopy and R JJ stenting. # Normocytic Anemia - sec to progression of CKD/Chronic disease - No Iron/B12/Folate deficiency. Further management as per Nephrology # Leukocytosis - likely reactive sec to surgical procedures +/- cancer. No signs of active infection. Afebrile. Will monitor. DVT Px - SCDs. Heparin/Lovenox held due to bloody PV discharge.
--- NOTE | 2019-12-27 16:43 | OP ---
DATE OF OPERATION: 12/23/2019 PREOPERATIVE DIAGNOSIS: End-stage renal disease. POSTOPERATIVE DIAGNOSIS: End-stage renal disease. PROCEDURE: Insertion of PermCath. SURGEON: Guillermo Alva MD. ANESTHESIA: Fractional. BLOOD LOSS: 10 mL. INDICATION: The patient is a 39-year-old female that needs a PermCath insertion. Patient was consented for the procedure understanding all risks, benefits, and alternatives and taken to the operating room. DESCRIPTION OF PROCEDURE: Once in the operating room, patient was laid on the operating table in a supine manner, and the area of the right neck and chest prepped and draped in a sterile surgical manner. Then under ultrasound guidance, we visualized the right internal jugular vein and 10 mL of lidocaine 1% was injected there. We then took our Micropuncture needle and punctured the right internal jugular vein under ultrasound guidance. A Micropuncture wire was inserted. Micropuncture sheath was inserted. A 0.035 floppy guidewire was inserted under fluoroscopy. We then injected 10 mL of lidocaine 1% above and below the clavicle. We then took an 11-blade and made a 1-cm incision at the puncture site. We then took our 15-blade and made a 1-cm incision below the clavicle. We then tunneled the [id number] up to the puncture site. We then took our breakaway sheath and placed it over the guidewire into the vein under fluoroscopy. Inner cannula and guidewire were removed. Catheter was placed inside the sheath. The sheath was broken away as the catheter was placed inside the vein. Neck of the catheter was then tip of the catheter was located outside the right atrium. We then took a De La O needle and guido back on the port. There was good flow. Heparinized saline was injected into each port, and then 2000 units of IV heparin were injected in each port. We then used 4-0 Biosyn, 2 simple sutures were placed in the puncture site. 3-0 nylon used, and the catheter was fastened to the skin. Biopatch, Steri-Strips, 4x4s, Tegaderms were placed. The patient tolerated the procedure without complications. Patient was transferred to PACU in stable condition where chest x-ray will be ordered. GUILLERMO ALVA DO [id number]
[2019-12-27] MEDS ORDERED: SODIUM CHLORIDE 250 ML IV PRN ×2 (17:30→17:31)
--- NOTE | 2019-12-27 17:30 | PN ---
Progress Note, Physician Chief Complaint: Progressive CKD History of Present Illness: Seen and examined at the bedside Awake and alert has slight tenderness at dialysis catheter site denies any sob, cp, fever or chills - Current Medication List Current Medications: Active Medications Acetaminophen (Tylenol -) 650 mg PO Q4H PRN PRN Reason: pain of 3-6 Last Admin: 12/27/19 06:16 Dose: 650 mg Documented by: Albuterol Sulfate (Ventolin Hfa Inhaler -) 1 puff IH Q4H PRN PRN Reason: ASTHMA Budesonide/Formoterol Fumarate (Symbicort 80/4.5mcg -) 2 puff IH BID [facility] Last Admin: 12/27/19 09:57 Dose: 2 puff Documented by: Docusate Sodium (Colace -) 100 mg PO TID [facility] Last Admin: 12/27/19 14:01 Dose: 100 mg Documented by: Gabapentin (Neurontin -) 600 mg PO TID [facility] Last Admin: 12/27/19 14:01 Dose: 600 mg Documented by: Insulin Aspart (Novolog Vial Sliding Scale -) 1 vial SQ [facility]; Protocol Last Admin: 12/27/19 17:20 Dose: 4 units Documented by: Ondansetron HCl (Zofran Injection) 4 mg IVPUSH Q6H PRN PRN Reason: NAUSEA AND/OR VOMITING Oxycodone HCl (Roxicodone -) 5 mg PO Q6H PRN PRN Reason: PAIN LEVEL 6-10 Last Admin: 12/27/19 02:44 Dose: 5 mg Documented by: Pantoprazole Sodium (Protonix -) 40 mg PO DAILY [facility] Last Admin: 12/27/19 09:56 Dose: 40 mg Documented by: Paroxetine HCl (Paxil -) 10 mg PO DAILY [facility] Last Admin: 12/27/19 09:56 Dose: 10 mg Documented by: Polyethylene Glycol (Miralax (For Daily Use) -) 17 gm PO DAILY PRN PRN Reason: CONSTIPATION Senna (Senna -) 2 tab PO HS [facility] Last Admin: 12/26/19 21:34 Dose: 2 tab Documented by: Sevelamer Carbonate (Renvela -) 1,600 mg PO TIDCM [facility] Last Admin: 12/27/19 17:20 Dose: 1,600 mg Documented by: - Objective Vital Signs: Vital Signs Temperature 99.3 F 08/04/20 14:00 Pulse Rate 95 H 12/27/19 14:00 Respiratory Rate 18 12/27/19 14:00 Blood Pressure 147/71 12/27/19 14:00 O2 Sat by Pulse Oximetry (%) 99 12/27/19 14:00 Constitutional: Yes: Well Nourished, No Distress, Calm HENT: Yes: Atraumatic Neck: Yes: Supple Cardiovascular: Yes: Regular Rate and Rhythm Respiratory: Yes: Regular Gastrointestinal: Yes: Soft, Abdomen, Obese Extremities: No: Cyanosis Edema: Yes Neurological: Yes: Alert, Oriented Labs: CBC, BMP 12/27/19 06:40 12/27/19 06:40 INR, PTT INR 1.06 (0.83-1.09) 12/20/19 13:17 Assessment/Plan 39 year old female with pmhx of dm, anemia, asthma, depression anxiety, PKD, and bipolar who presents with lower abdominal pain and found to have progressive CKD. 1. 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 Hydronphrosis s/p stent placement 3. Anemia in setting of CKD 4. Cerival Ca 5. DM For dialysis tomorrow via tunneled catheter Trend Renal function daily (if Cr downtrends may indicate some recovery of renal function after urologic intervention) Will obtain transplant evaluation as a outpatient. AVF placement to be done as an outpatient as well. Continue EKTA wit HD, getting PRBC transfusion today Urology follow up TRAFFIC CONTROL SPECIALIST follow up To obtain contrast CT of the Abd/Pelvis for staging of cervial Ca Thank you Brian Dahl DO
--- NOTE | 2019-12-27 17:54 | PN ---
Physical Exam: SUBJECTIVE: Patient seen and examined at bedside. Patient does not complain of any acute events overnight. OBJECTIVE: Vital Signs Period Temp Pulse Resp BP Sys/Farah Pulse Ox Last 24 Hr 98.0 F-99.3 F 90-96 16-18 112-154/56-79 95-99 GENERAL: The patient is awake, alert, and fully oriented, in no acute distress. LUNGS: Breath sounds equal, clear to auscultation bilaterally, no wheezes, no crackles, no accessory muscle use. HEART: Regular rate and rhythm, S1, S2 without murmur, rub or gallop. ABDOMEN: Soft, nontender, nondistended, normoactive bowel sounds, no guarding, no rebound, no hepatosplenomegaly, no masses. Laboratory Results - last 24 hr 12/26/19 12/26/19 12/27/19 17:45 21:33 06:11 WBC RBC Hgb Hct MCV MCH MCHC RDW Plt Count MPV Sodium Potassium Chloride Carbon Dioxide Anion Gap BUN Creatinine Est GFR (CKD-EPI)AfAm Est GFR (CKD-EPI)NonAf POC Glucometer 284 229 Random Glucose Calcium Phosphorus Magnesium COVID-19 (JAVON) Not detected Blood Type Antibody Screen Crossmatch 12/27/19 12/27/19 12/27/19 06:40 06:40 12:01 WBC 13.5 H RBC 2.60 L Hgb 7.0 L Hct 22.2 L D MCV 85.5 MCH 27.1 MCHC 31.7 L RDW 15.3 Plt Count 176 MPV 8.0 Sodium 136 Potassium 3.7 Chloride 101 Carbon Dioxide 24 Anion Gap 11 BUN 36.7 H Creatinine 4.4 H Est GFR (CKD-EPI)AfAm 13.80 Est GFR (CKD-EPI)NonAf 11.91 POC Glucometer 188 Random Glucose 232 H Calcium 7.7 L Phosphorus 4.9 Magnesium 2.1 COVID-19 (JAVON) Blood Type Antibody Screen Crossmatch 12/27/19 12/27/19 13:25 17:17 WBC RBC Hgb Hct MCV MCH MCHC RDW Plt Count MPV Sodium Potassium Chloride Carbon Dioxide Anion Gap BUN Creatinine Est GFR (CKD-EPI)AfAm Est GFR (CKD-EPI)NonAf POC Glucometer 284 Random Glucose Calcium Phosphorus Magnesium COVID-19 (JAVON) Blood Type O POSITIVE Antibody Screen Negative Crossmatch See Detail Active Medications Generic Name Dose Route Start Last Admin Trade Name Freq PRN Reason Stop Dose Admin Acetaminophen 650 mg 12/23/19 19:14 12/27/19 06:16 Tylenol - PO 650 mg Q4H PRN Administration pain of 3-6 Albuterol Sulfate 1 puff 12/23/19 19:14 Ventolin Hfa Inhaler - IH Q4H PRN ASTHMA Budesonide/Formoterol Fumarate 2 puff 12/23/19 22:00 12/27/19 09:57 Symbicort 80/4.5mcg - IH 2 puff BID UMBERTO Administration Docusate Sodium 100 mg 12/23/19 22:00 12/27/19 14:01 Colace - PO 100 mg TID UMBERTO Administration Epoetin Kurt-epbx 20,000 unit 12/28/19 08:00 Retacrit IVPUSH 12/28/19 08:01 ONCE ONE Gabapentin 600 mg 12/23/19 22:00 12/27/19 14:01 Neurontin - PO 600 mg TID UMBERTO Administration Sodium Chloride 250 mls @ 3,000 mls/hr 12/27/19 17:30 Normal Saline - IV 12/28/19 17:30 PRN PRN Hypotension during Dialysis Sodium Chloride 250 mls @ 3,000 mls/hr 12/27/19 17:31 Normal Saline - IV 12/28/19 17:31 PRN PRN Hypotension during Dialysis Insulin Aspart 1 vial 12/23/19 22:00 12/27/19 17:20 Novolog Vial Sliding Scale - SQ 4 units ACHS UMBERTO Administration Protocol Ondansetron HCl 4 mg 12/23/19 19:14 Zofran Injection IVPUSH Q6H PRN NAUSEA AND/OR VOMITING Oxycodone HCl 5 mg 12/26/19 10:12 12/27/19 02:44 Roxicodone - PO 5 mg Q6H PRN Administration PAIN LEVEL 6-10 Pantoprazole Sodium 40 mg 12/24/19 10:00 12/27/19 09:56 Protonix - PO 40 mg DAILY UMBERTO Administration Paroxetine HCl 10 mg 12/24/19 10:00 12/27/19 09:56 Paxil - PO 10 mg DAILY UMBERTO Administration Polyethylene Glycol 17 gm 12/26/19 16:12 Miralax (For Daily Use) - PO DAILY PRN CONSTIPATION Senna 2 tab 12/26/19 22:00 12/26/19 21:34 Senna - PO 2 tab HS UMBERTO Administration Sevelamer Carbonate 1,600 mg 12/24/19 08:00 12/27/19 17:20 Renvela - PO 1,600 mg TIDCM UMBERTO Administration ASSESSMENT/PLAN: Ms Ramos is a 39F w a h/o Autosomal dominant Polycystic Kidney Disease, chronic anemia, Cervical CADPCKD, Chronic Anemia, Cervical CA with scheduled DEMO COORDINATOR-ONC procedure 12/21 for staging. The patient arrived to the hospital for abnormal vaginal bleeds and RLQ and suprapubic tenderness. #Cervical Cancer - CT A/P revealed - subpleural groundglass opacities, enlarged periaortic retroperitoneal LNs, Stable adrenal ademona, Mild R hydronephrosis, bilateral renal cysts - CT w contrast tomorrow for staging - POD 5 s/p Uteroscopy and attempted flex sigmoidoscopy - Staging by Dr. Wall - GRADE IIIB - patient requires full information about surgery from gynonc - left message - #VICENTE secondary to Adult Polycystic Kidney Disease - POD 4 s/p Permacath placement - third day of HD 12/28/2019 - set up for dialysis tomorrow with Dr. Dahl - will obtain transplant evaluation with Dr. Dahl - AVF placement outpatient - continue EKTA - recieved RBC today - trending H/H - Continue Sevelemer - Patient awaiting placement at dialysis clinic per Social work - Hepatitis panel negative #DM 2 - Maintain on Novolog sliding scale. - Glargine, lispro, and trulicity home meds were held #Bipolar Disorder - Stable, continue Paroxetine. #HTN - Losartan held due to VICENTE #DVT Px - SCDs Visit type - Emergency Visit Emergency Visit: Yes ED Registration Date: 12/20/19 Care time: The patient presented to the Emergency Department on the above date and was hospitalized for further evaluation of their emergent condition. - New Patient This patient is new to me today: No - Critical Care Critical Care patient: No - Discharge Referral Referred to [facility] No ATTENDING PHYSICIAN STATEMENT I saw and evaluated the patient. I reviewed the resident's note and discussed the case with the resident. I agree with the resident's findings and plan as documented. SUBJECTIVE: OBJECTIVE: ASSESSMENT AND PLAN:
[2019-12-27] MEDS: SENNOSIDES 8.6MG TABLET (FP) PO SCH (21:50)
[2019-12-28] MEDS: INSULIN SLIDING SCALE (NOVOLOG) 1 VIAL SQ SCH ×3 (06:18→17:51)
[2019-12-28] MEDS: GABAPENTIN 300 MG CAPSULE PO SCH ×2 (06:19→15:04)
[2019-12-28] MEDS: DOCUSATE SODIUM 100 MG CAPSULE (FP) PO SCH ×2 (06:19→15:04)
[2019-12-28] MEDS ORDERED: EPOETIN ALFA-EPBX 10,000 UNIT/ML VIAL IVPUSH ONE (08:00)
[2019-12-28 08:38] LABS: BLOOD UREA NITROGEN 44.2 mg/dL (7-18); CALCIUM 8.3 mg/dL (8.5-10.1); CREATININE 5.1 mg/dL (0.55-1.3); HEMATOCRIT 31.2 % (32.4-45.2); HEMOGLOBIN 9.9 GM/dL (10.7-15.3); MAGNESIUM 2.2 mg/dL (1.8-2.4); MCH 27.4 pg (25.7-33.7); MCHC 31.6 g/dl (32.0-36.0); MEAN CELL VOLUME 86.6 fl (80-96); MEAN PLT VOLUME 9.3 fl (7.5-11.1); PHOSPHOROUS 5.6 mg/dL (2.5-4.9); PLATELET COUNT 159 K/MM3 (134-434); POTASSIUM 4.1 mmol/L (3.5-5.1); RDW 15.3 % (11.6-15.6); WHITE BLOOD COUNT 17.2 K/mm3 (4.0-10.0)
[2019-12-28] MEDS: SEVELAMER CARBONATE 800 MG TAB (FP) PO SCH ×3 (08:45→17:52)
[2019-12-28] MEDS: PARoxetine HCL 10 MG TABLET PO SCH (09:46)
[2019-12-28] MEDS: PANTOPRAZOLE 40 MG TABLET PO SCH (09:46)
[2019-12-28] MEDS: BUDESONIDE/FORMETEROL FUMARATE 80/4.5 mcg INHALER IH SCH (09:47)
--- NOTE | 2019-12-28 15:21 | PN ---
Teaching Attending Note Name of Resident: Erick Shell ATTENDING PHYSICIAN STATEMENT I saw and evaluated the patient. I reviewed the resident's note and discussed the case with the resident. I agree with the resident's findings and plan as documented. SUBJECTIVE: Patient responded appropriately to transfusion of [address] read is pending. Patient is medically cleared for discharge. She will follow-up at dialysis Thursday and with oncology and radiation oncology for further work-up and treatment of her cervical cancer OBJECTIVE: Last Vital Signs Temp Pulse Resp BP Pulse Ox 97.9 F 85 18 141/71 100 12/28/19 14:00 12/28/19 14:06 12/28/19 14:06 12/28/19 14:06 12/28/19 14:00 PE: Per resident note Labs/Imaging: reviewed ASSESSMENT AND PLAN: 39 year old female with history of ADPCKD, Chronic Anemia, Cervical CA (scheduled GYNONC procedure 12/21) presented to ED with worsening abdominal pain, and bloody vaginal discharge. Patient was found to be in acute renal failure and was started on hemodialysis. She will be discharged on hemodialysis Thursday. Patient will also follow-up as an outpatient for further management of her cervical cancer.
--- NOTE | 2019-12-28 18:05 | PN ---
Progress Note, Physician Chief Complaint: Progressive CKD History of Present Illness: Seen and examined at the bedside Awake and alert s/p dialysis earlier today with 2.5L UF she reports feeling fatigued no sob, cp, fever or chills s/p CT of the chest earlier today - Current Medication List Current Medications: Active Medications Acetaminophen (Tylenol -) 650 mg PO Q4H PRN PRN Reason: pain of 3-6 Last Admin: 12/27/19 21:49 Dose: 650 mg Documented by: Albuterol Sulfate (Ventolin Hfa Inhaler -) 1 puff IH Q4H PRN PRN Reason: ASTHMA Budesonide/Formoterol Fumarate (Symbicort 80/4.5mcg -) 2 puff IH BID [facility] Last Admin: 12/28/19 09:47 Dose: 2 puff Documented by: Docusate Sodium (Colace -) 100 mg PO TID [facility] Last Admin: 12/28/19 15:04 Dose: 100 mg Documented by: Gabapentin (Neurontin -) 600 mg PO TID [facility] Last Admin: 12/28/19 15:04 Dose: 600 mg Documented by: Sodium Chloride (Normal Saline -) 250 mls @ 3,000 mls/hr IV PRN PRN PRN Reason: Hypotension during Dialysis Stop: 12/28/19 17:30 Sodium Chloride (Normal Saline -) 250 mls @ 3,000 mls/hr IV PRN PRN PRN Reason: Hypotension during Dialysis Stop: 12/28/19 17:31 Insulin Aspart (Novolog Vial Sliding Scale -) 1 vial SQ [facility]; Protocol Last Admin: 12/28/19 17:51 Dose: 2 units Documented by: Ondansetron HCl (Zofran Injection) 4 mg IVPUSH Q6H PRN PRN Reason: NAUSEA AND/OR VOMITING Oxycodone HCl (Roxicodone -) 5 mg PO Q6H PRN PRN Reason: PAIN LEVEL 6-10 Last Admin: 12/27/19 19:46 Dose: 5 mg Documented by: Pantoprazole Sodium (Protonix -) 40 mg PO DAILY [facility] Last Admin: 12/28/19 09:46 Dose: 40 mg Documented by: Paroxetine HCl (Paxil -) 10 mg PO DAILY [facility] Last Admin: 12/28/19 09:46 Dose: 10 mg Documented by: Polyethylene Glycol (Miralax (For Daily Use) -) 17 gm PO DAILY PRN PRN Reason: CONSTIPATION Senna (Senna -) 2 tab PO HS [facility] Last Admin: 12/27/19 21:50 Dose: 2 tab Documented by: Sevelamer Carbonate (Renvela -) 1,600 mg PO TIDCM [facility] Last Admin: 12/28/19 17:52 Dose: 1,600 mg Documented by: - Objective Vital Signs: Vital Signs Temperature 97.9 F 12/28/19 14:00 Pulse Rate 85 12/28/19 14:06 Respiratory Rate 18 12/28/19 14:06 Blood Pressure 141/71 12/28/19 14:06 O2 Sat by Pulse Oximetry (%) 100 12/28/19 14:00 Constitutional: Yes: No Distress, Calm HENT: Yes: Atraumatic Neck: Yes: Supple Cardiovascular: Yes: Regular Rate and Rhythm Respiratory: Yes: Regular, Diminished. No: Rales, Rhonchi Gastrointestinal: Yes: Soft, Abdomen, Obese Extremities: No: Cyanosis Edema: No Labs: CBC, BMP 12/28/19 06:53 12/28/19 06:53 INR, PTT INR 1.06 (0.83-1.09) 12/20/19 13:17 Assessment/Plan 39 year old female with pmhx of dm, anemia, asthma, depression anxiety, PKD, and bipolar who presents with lower abdominal pain and found to have progressive CKD. 1. 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 Hydronphrosis s/p stent placement 3. Anemia in setting of CKD 4. Cerival Ca 5. DM Tolerated dialysis today with 2.5L FU Cr uptrending between dialysis sessions indicating there is no recovery of renal function. Will obtain transplant evaluation as a outpatient. AVF placement to be done as an outpatient as well. Continue EKTA wit HD, getting PRBC transfusion today s/p CT of the Chest for staging of cervical Ca. Official read is pending. Discharge planning as per primary team. If discharged tomorrow can go straight to HD center in the afternoon for her first outpatient session. Thank you Brian Dahl DO
[2019-12-28 18:26] VITALS: BP 136/85; PULSE 94; TEMP 99.9
--- NOTE | 2019-12-28 20:18 | DS ---
Physical Exam: SUBJECTIVE: Patient seen and examined OBJECTIVE: Vital Signs Period Temp Pulse Resp BP Sys/Farah Pulse Ox Last 24 Hr 97.8 F-99.9 F 80-98 16-94 107-155/52-85 93-100 PHYSICAL EXAM GENERAL: The patient is awake, alert, and fully oriented, in no acute distress. HEAD: Normal with no signs of trauma. EYES: PERRL, extraocular movements intact, sclera anicteric, conjunctiva clear. ENT: Ears normal, nares patent, oropharynx clear without exudates, moist mucous membranes. NECK: Trachea midline, full range of motion, supple. LUNGS: Breath sounds equal, clear to auscultation bilaterally, no wheezes, no crackles, no accessory muscle use. HEART: Regular rate and rhythm, S1, S2 without murmur, rub or gallop. ABDOMEN: Soft, nontender, nondistended, normoactive bowel sounds, no guarding, no rebound, no hepatosplenomegaly, no masses. EXTREMITIES: 2+ pulses, warm, well-perfused, no edema. NEUROLOGICAL: Cranial nerves II through XII grossly intact. Normal speech, gait not observed. PSYCH: Normal mood, normal affect. SKIN: Warm, dry, normal turgor, no rashes or lesions noted. LABS Laboratory Results - last 24 hr 12/27/19 12/28/19 12/28/19 21:47 06:16 06:53 WBC 17.2 H RBC 3.60 Hgb 9.9 L Hct 31.2 L D MCV 86.6 MCH 27.4 MCHC 31.6 L RDW 15.3 Plt Count 159 MPV 9.3 D Sodium Potassium Chloride Carbon Dioxide Anion Gap BUN Creatinine Est GFR (CKD-EPI)AfAm Est GFR (CKD-EPI)NonAf POC Glucometer 233 154 Random Glucose Calcium Phosphorus Magnesium 12/28/19 12/28/19 12/28/19 06:53 15:02 17:50 WBC RBC Hgb Hct MCV MCH MCHC RDW Plt Count MPV Sodium 138 Potassium 4.1 Chloride 104 Carbon Dioxide 22 Anion Gap 13 BUN 44.2 H Creatinine 5.1 H Est GFR (CKD-EPI)AfAm 11.54 Est GFR (CKD-EPI)NonAf 9.96 POC Glucometer 242 250 Random Glucose 151 H Calcium 8.3 L Phosphorus 5.6 H Magnesium 2.2 HOSPITAL COURSE: Date of Admission:12/20/19 Date of Discharge: 12/28/19 Minutes to complete discharge: 35 Discharge Summary Problems reviewed: Yes Reason For Visit: MALIGNANT NEOPLASM OF CERVIX,RENAL FAILURE Condition: Good - Instructions Diet, Activity, Other Instructions: YOUR VISIT: You were admitted to the hospital for abnormal vaginal bleeding and lower abdominal pain. While you were in the hospital, we evaluated you with lab work, blood work, imaging including x rays of your chest, and CAT scans of your abdomen, pelvis,and chest. We evaluated you with an abdominal CAT scan which showed that you had some kidne y injury along with an incidental finding of an adrenal adenoma and enlarged lymph nodes. You were found to have kidney injury due to your kidney disease and obstruction of your kidneys. You were evaluated with Dr. Conner, the urologist, who had placed a JJ stent in your right kidney. You were then evaluated by Dr. Summers to stage your cervical cancer. You will follow up with her at her office to discuss the results of the surgery. Dr. John is a radiation oncologist doctor that evaluated you and wanted you to receive a PET scan before starting radiation therapy. You will meet with Dr. John to go over your plan for the management of your cervical cancer through radiation therapy treatments. You were evaluated by Dr. Dahl (Nephrology) for increased kidney damage. You were directed to have a permacath inserted so that you may start your dialysis therapy for your kidneys. You were set up by social work to receive dialysis Thursday, , and Thursday. You were seen by Dr. Hall (Vascular Surgeon) for placement of your permecath, you were set up for dialysis therapy, and your kidney function improved. MEDICATIONS: Please START taking Miralax 17gm daily for constipation Please continue taking Renvela at 1600mg three times a day for your kidney function Continue to take all other home medications as prescribed. FOLLOW UP: - Please follow-up with your Retail Product Demo Specialist Dr. Dahl with in 1 week to follow up for a blood test. It is important that you are closely monitored for your kidney functions. - Please follow up with your Radiation Oncologist, Dr. JOHN in 1 week, for a PET-scan to investigate your cancer. - Please follow up with your Theatre Program Director/oncologist Dr. SUMMERS within 1 week to review your surgical case. - Visit with your Primary Care Provider in 2 weeks. If you do not have a primary care provider you may make an appointment with Dr. Erick Shell at the [facility] [address] [facility] ([phone]). Additional Instructions: -You are being discharged to your (home). -Please return to the Emergency Department if you experience worsening pain, fevers, chills, shortness of breath, abdominal pain, further vaginal bleeding, or chest pain, or if you experience any worsening, new or concerning symptoms. Referrals: Laxmi Read NP [Primary Care Provider] - Max John MD [Staff Physician] - Liliana Summers MD [Staff Physician] - Sarbjit Conner MD [Staff Physician] - Brian Dahl MD [Staff Physician] - Disposition: HOME - Home Medications Comprehensive Discharge Medication List: Ambulatory Orders Albuterol 0.083% Nebulizer Sarina [Ventolin 0.083% Nebulizer Soln -] 1 neb NEB Q6H PRN 10/06/17 Budesonide/Formeterol Fumarate [SYMBICORT 80/4.5mcg -] 2 puff IH BID 10/06/17 Insulin Glargine,Hum.rec.anlog [Lantus] 50 unit SQ BID 10/06/17 Insulin Lispro [Humalog] 30 unit SQ TID 04/18/18 Esomeprazole Magnesium [Nexium 24Hr] 40 mg PO DAILY 05/28/18 Gabapentin [Neurontin] 600 mg PO TID 10/09/19 Sevelamer Carbonate [Renvela -] 800 mg PO TIDCM #90 tab 10/12/19 Dulaglutide [Trulicity] 1.5 mg SQ Q7D 11/18/19 Losartan Potassium 50 mg PO DAILY 11/18/19 Paroxetine HCl [Paxil -] 10 mg PO DAILY 11/18/19 Docusate Sodium [Colace -] 100 mg PO TID capsule 11/23/19 Sodium Bicarbonate - 1,300 mg PO BID tablet 11/23/19 Polyethylene Glycol 3350 [Miralax 119 gm Btl -] 17 gm PO DAILY PRN #1 bottle 12/28/19 - Discharge Referral Referred to [facility] No ATTENDING PHYSICIAN STATEMENT I saw and evaluated the patient. I reviewed the resident's note and discussed the case with the resident. I agree with the resident's findings and plan as documented. SUBJECTIVE: OBJECTIVE: ASSESSMENT AND PLAN:
[2020-02-05] MEDS ORDERED: INSULIN SLIDING SCALE (NOVOLOG) 1 VIAL SQ SCH (07:00)
== END 2019-12-28 19:10 | disposition home or self-care (01) | DRG 530 ==
LOC: JER 12:28 → JERBED 16:22 → J5S 12-21 00:16
PROVIDERS: ADMIT Internal Medicine; ATTEND Internal Medicine
PROC: 0DJD8ZZ Inspection of Lower Intestinal Tract, Via Natural or Artificial Opening Endoscopic (ICD-10-PCS; 2019-12-20)
PROC: 0TJB8ZZ Inspection of Bladder, Via Natural or Artificial Opening Endoscopic (ICD-10-PCS; 2019-12-22)
PROC: BT1DZZZ Fluoroscopy of Right Kidney, Ureter and Bladder (ICD-10-PCS; principal; 2019-12-22 14:30)
PROC: 0T768DZ Dilation of Right Ureter with Intraluminal Device, Via Natural or Artificial Opening Endoscopic (ICD-10-PCS; 2019-12-22 14:30)
PROC: 05HM33Z Insertion of Infusion Device into Right Internal Jugular Vein, Percutaneous Approach (ICD-10-PCS; 2019-12-23)
PROC: B543ZZA Ultrasonography of Right Jugular Veins, Guidance (ICD-10-PCS; 2019-12-23)
PROC: 5A1D70Z Performance of Urinary Filtration, Intermittent, Less than 6 Hours Per Day (ICD-10-PCS; 2019-12-24)
PROC: 5A1D70Z Performance of Urinary Filtration, Intermittent, Less than 6 Hours Per Day (ICD-10-PCS; 2019-12-26)
PROC: 30233N1 Transfusion of Nonautologous Red Blood Cells into Peripheral Vein, Percutaneous Approach (ICD-10-PCS; 2019-12-27)
PROC: 5A1D70Z Performance of Urinary Filtration, Intermittent, Less than 6 Hours Per Day (ICD-10-PCS; 2019-12-28)
DX: C53.9 Malignant neoplasm of cervix uteri, unspecified (principal); E11.9 Type 2 diabetes mellitus without complications; N93.9 Abnormal uterine and vaginal bleeding, unspecified; E87.5 Hyperkalemia; Q61.3 Polycystic kidney, unspecified; F31.9 Bipolar disorder, unspecified; D63.1 Anemia in chronic kidney disease; D72.829 Elevated white blood cell count, unspecified; N17.9 Acute kidney failure, unspecified; F41.8 Other specified anxiety disorders; R10.84 Generalized abdominal pain; E87.2 Acidosis; I12.0 Hypertensive chronic kidney disease with stage 5 chronic kidney disease or end stage renal disease; E11.22 Type 2 diabetes mellitus with diabetic chronic kidney disease; N18.6 End stage renal disease; E87.1 Hypo-osmolality and hyponatremia; E88.09 Other disorders of plasma-protein metabolism, not elsewhere classified; R19.7 Diarrhea, unspecified; J45.909 Unspecified asthma, uncomplicated; Z99.2 Dependence on renal dialysis; N13.30 Unspecified hydronephrosis; D35.00 Benign neoplasm of unspecified adrenal gland; E66.9 Obesity, unspecified; Z68.39 Body mass index [BMI] 39.0-39.9, adult
CPT/HCPCS: 36415; 36430; 36511; 71045-TC-FY; 71260-TC; 74176-TC; 76000-TC-FY; 80048; 80053; 80074; 81003; 82272; 82436; 82565; 82607; 82728; 82746; 82962; 83540; 83550; 83735; 84100; 84133; 84300; 84466; 84702; 85025; 85027; 85610; 85730; 86850; 86900; 86901; 86922; 87086; 87491; 87591; 93005; 93010; 94760; 99285-25; J0885; J1644; P9038; P9058; Q5106; U0003

== ENCOUNTER 2020-01-16 04:54 | Day surgery (SDC) | payer OTHER ==
[2020-01-13 16:48] VITALS: BMI 38.7
[2020-01-16] MEDS ORDERED: LIDOCAINE HCL 1%, 10 MG/ML (20ML VIAL) ONE ×2 (10:17→11:23)
[2020-01-16] MEDS ORDERED: HEPARIN NA (PORCINE) 5,000 UNITS/ML 1ML VIAL ONE (10:17)
[2020-01-16] MEDS ORDERED: PROPOFOL 20 ML ONE (10:18)
[2020-01-16] MEDS ORDERED: MIDAZOLAM HCL 2 MG/2 ML SINGLE DOSE VIAL ONE (10:18)
--- NOTE | 2020-01-16 10:52 | HP ---
Admitting History and Physical - Admission Chief Complaint: pt here for port placement. GEtting chemotherapy started today History Source: Patient Limitations to Obtaining History: No Limitations - Past Medical History Pulmonary: Yes: Asthma Renal/: Yes: Renal Inusuff, Other (PCKD) ...LMP: 01/13/20 ...LMP Comment: bleeding for a few months Heme/Onc: Yes: Anemia Infectious Disease: Yes: Other (HPV+, COVID+ (3mo ago)) Psych: Yes: Anxiety, Bipolar Endocrine: Yes: Diabetes Mellitus - Past Surgical History Past Surgical History: Yes: - Smoking History Smoking history: Former smoker Have you smoked in the past 12 months: No Aproximately how many cigarettes per day: 3 If you are a former smoker, when did you quit?: 2004 - Alcohol/Substance Use Hx Alcohol Use: No History of Substance Use: reports: None - Social History History of Recent Travel: No Home Medications - Allergies Allergies/Adverse Reactions: Allergies Allergy/AdvReac Type Severity Reaction Status Date / Time No Known Allergies Allergy Verified 12/20/19 12:45 - Home Medications Home Medications: Ambulatory Orders Albuterol 0.083% Nebulizer Sarina [Ventolin 0.083% Nebulizer Soln -] 1 neb NEB Q6H PRN 10/06/17 Budesonide/Formeterol Fumarate [SYMBICORT 80/4.5mcg -] 2 puff IH BID 10/06/17 Insulin Glargine,Hum.rec.anlog [Lantus] 50 unit SQ BID 10/06/17 Insulin Lispro [Humalog] 30 unit SQ TID 04/18/18 Esomeprazole Magnesium [Nexium 24Hr] 40 mg PO DAILY 05/28/18 Gabapentin [Neurontin] 600 mg PO TID 10/09/19 Sevelamer Carbonate [Renvela -] 800 mg PO TIDCM #90 tab 10/12/19 Paroxetine HCl [Paxil -] 10 mg PO DAILY 11/18/19 Docusate Sodium [Colace -] 100 mg PO TID capsule 11/23/19 Sodium Bicarbonate - 1,300 mg PO BID tablet 11/23/19 Polyethylene Glycol 3350 [Miralax 119 gm Btl -] 17 gm PO DAILY PRN #1 bottle 12/28/19 Acetaminophen [Tylenol -] 2 tab PO PRN 01/16/20 Review of Systems - Review of Systems Constitutional: reports: No Symptoms Eyes: reports: No Symptoms HENT: reports: No Symptoms Neck: reports: No Symptoms Cardiovascular: reports: No Symptoms Respiratory: reports: No Symptoms Gastrointestinal: reports: No Symptoms Genitourinary: reports: No Symptoms Breasts: reports: No Symptoms Reported Musculoskeletal: reports: No Symptoms Integumentary: reports: No Symptoms Neurological: reports: No Symptoms Endocrine: reports: No Symptoms Hematology/Lymphatic: reports: No Symptoms Psychiatric: reports: No Symptoms Physical Examination Vital Signs: Vital Signs Temperature 97.8 F 01/16/20 08:47 Pulse Rate 93 H 01/16/20 08:47 Respiratory Rate 20 01/16/20 08:47 Blood Pressure 129/78 01/16/20 08:47 O2 Sat by Pulse Oximetry (%) 100 01/16/20 08:47 Constitutional: Yes: Well Nourished, No Distress, Calm Eyes: Yes: WNL, Conjunctiva Clear, EOM Intact HENT: Yes: WNL, Atraumatic, Normocephalic Neck: Yes: WNL, Supple, Trachea Midline Cardiovascular: Yes: WNL, Regular Rate and Rhythm Respiratory: Yes: WNL, Regular, CTA Bilaterally Gastrointestinal: Yes: WNL, Normal Bowel Sounds Musculoskeletal: Yes: WNL Extremities: Yes: WNL Edema: No Peripheral Pulses WNL: Yes Integumentary: Yes: WNL Neurological: Yes: WNL, Alert, Oriented ...Motor Strength: WNL Psychiatric: Yes: WNL Labs: CBC, BMP 01/16/20 07:33 Problem List - Problems (1) Uterine cancer Assessment/Plan: for port placement today for chemotherapy Guillermo Hall dO Problems reviewed: Yes Code(s): C55 - MALIGNANT NEOPLASM OF UTERUS, PART UNSPECIFIED
[2020-01-16] MEDS ORDERED: DEXAMETHASONE SODIUM PHOSPHATE 12 MG in SODIUM CHLORIDE 50 ML IVPB ONE (11:00)
[2020-01-16] MEDS ORDERED: PALONOSETRON HCL 0.25 MG/5 ML VIAL IVPUSH ONE (11:00)
[2020-01-16] MEDS ORDERED: ceFAZolin SODIUM 1 GM VIAL ONE (11:08)
[2020-01-16] MEDS ORDERED: DEXAMETHASONE SOD PHOSPHATE 4 MG/1 ML VIAL ONE (11:08)
[2020-01-16] MEDS ORDERED: LIDOCAINE HCL 1%, 10 MG/ML (20ML VIAL) INF ONE (11:18)
[2020-01-16] MEDS ORDERED: CARBOPLATIN IVPB ONE (11:30)
[2020-01-16] MEDS ORDERED: SODIUM CHLORIDE IVPB ONE (11:30)
[2020-01-16] MEDS ORDERED: HEPARIN NA (PORCINE) 1,000 UNITS/ML 10ML M-D VIAL SQ ONE (11:58)
[2020-01-16 12:21] LABS: HEMATOCRIT 23.8 % (32.4-45.2); HEMOGLOBIN 7.5 GM/dL (10.7-15.3); LYMPH % 14.7 % (8-40); MCHC 31.5 g/dl (32.0-36.0); MEAN CELL VOLUME 88.7 fl (80-96); NEUT % 76.3 % (42.8-82.8); PLATELET COUNT 172 K/MM3 (134-434); RBC 2.69 M/mm3 (3.60-5.2); RDW 16.9 % (11.6-15.6); WHITE BLOOD COUNT 12.6 K/mm3 (4.0-10.0)
--- NOTE | 2020-01-16 12:22 | OP ---
Operative Note - Note: Pre-Operative Diagnosis: Uterine cancer Operation: Insertion of portacath Post-Operative Diagnosis: Same as Pre-op Surgeon: Guillermo Hall Anesthesia: MAC Estimated Blood Loss (mls): 20 Operative Report Dictated: Yes
[2020-01-16] MEDS ORDERED: ONDANSETRON 4 MG/2 ML VIAL ONE (12:57)
[2020-01-16 13:08] LABS: ALBUMIN 1.5 g/dl (3.4-5.0); ALK PHOS 64 U/L (45-117); ANION GAP 8 MMOL/L (8-16); BILIRUBIN,TOTAL 0.2 mg/dL (0.2-1); BLOOD UREA NITROGEN 24.7 mg/dL (7-18); CHLORIDE 113 mmol/L (98-107); CO2 20 mmol/L (21-32); CREATININE 3.7 mg/dL (0.55-1.3); GLUCOSE,RANDOM 113 mg/dL (74-106); POTASSIUM 3.5 mmol/L (3.5-5.1); SGOT/AST 9 U/L (15-37); SGPT/ALT < 6 U/L (13-61); SODIUM 140 mmol/L (136-145); TOT PROT 4.9 g/dl (6.4-8.2)
[2020-01-16 14:27] VITALS: PULSE 90; TEMP 97.8
[2020-01-16 14:38] LABS: IRON SERUM 17 ug/dL (50-175); TOTAL IRON BINDING CAPACITY 90 ug/dL (250-450)
[2020-01-16 15:41] VITALS: BP 130/78
[2020-01-16] MEDS ORDERED: oxyCODONE HCL 5 MG TABLET PO ONE (16:56)
[2020-01-16] MEDS ORDERED: PORTA CATH FLUSH 10 ML IVPUSH ONE (18:43)
[2020-01-17] MEDS ORDERED: PORTA CATH FLUSH 10 ML IVPUSH ONE (08:45)
--- NOTE | 2020-01-17 12:12 | OP ---
DATE OF OPERATION: 01/16/2020 PREOPERATIVE DIAGNOSIS: Uterine cancer. POSTOPERATIVE DIAGNOSIS: Uterine cancer. PROCEDURE: Insertion of Port-A-Cath. SURGEON: Guillermo Alva DO ANESTHESIA: Fractional. BLOOD LOSS: 20 mL. INDICATION: Patient is a 39-year-old female that has uterine cancer and needs a Port-A-Cath placement for chemotherapy initiation today. Patient came into ambulatory surgery. Patient was found to be COVID-19 negative. Patient was consented for the procedure, understanding all risks, benefits, and alternatives, then taken to the operating room. DESCRIPTION OF PROCEDURE: Once in the operating room, was laid on the operating table in supine manner, and the area of the left neck and chest was prepped and draped in sterile surgical manner. We then, using ultrasound guidance, visualized the left internal jugular vein, and 10 mL of lidocaine 1% was injected. We then used our Micropuncture needle, punctured the vein. Under ultrasound guidance, Micropuncture wire was inserted, Micropuncture sheath was inserted, and a 0.038 floppy guidewire was inserted under fluoroscopy. We then went ahead and went below the clavicle and injected 15 mL of lidocaine 1% where our port pocket would be created. We went ahead and made a 4-cm incision, Bovie cautery used to obtain hemostasis. Then we were able to use a vein retractor and a pocket for our Port-A-Cath was created. We then tunneled the port up to the puncture site. We then went ahead and placed our breakaway sheath over the guidewire into the vein under fluoroscopy and the were removed. Prior to placing the catheter, we cut the catheter size by length, and then we placed the catheter into the sheath, and the sheath was broken away as the catheter vein under fluoroscopy. Completion fluoroscopy showed that the catheter was in the SVC outside the right atrium, and the port was in the right place. The neck of the catheter was nice and smooth, it was not kinked. We then took a De La O needle and we guido back on the Port-A-Cath, and there was good flow. Heparinized saline was injected and 2000 units of IV heparin was injected. We then used 3-0 Vicryl and the Port-A-Cath was secured to the subcutaneous tissue in [address]. We then used 3-0 Vicryl and subcutaneous tissue was approximated in an interrupted manner, and the skin was closed with 4-0 Biosyn in subcuticular running fashion. We then used one 4-0 Biosyn stitch and closed the puncture site. We then went ahead and placed our access needle and accessed the port. We then went ahead and placed 4 x 4's, Steri-Strips on the incisions, and Tegaderms. Tolerated the procedure with no complications. Patient transferred to PACU in stable condition where a chest x-ray will be ordered. GUILLERMO ALVA DO NP/[id number]
== END 2020-01-16 18:51 | disposition home or self-care (01) ==
LOC: JASU-SURG 04:54
PROVIDERS: ATTEND Surgery Vascular Surgery
PROC: 3E04305 Introduction of Other Antineoplastic into Central Vein, Percutaneous Approach (ICD-10-PCS; 2020-01-16)
PROC: 02HV33Z Insertion of Infusion Device into Superior Vena Cava, Percutaneous Approach (ICD-10-PCS; principal; 2020-01-16 10:00)
DX: C54.1 Malignant neoplasm of endometrium (principal)
CPT/HCPCS: 36561; 77001; 96367; 96375; 96413; C1788; 36415; 36430; 71045-TC-FY; 76000-TC-FY; 80053; 82728; 82962; 83540; 83550; 84132; 84703; 85025; 86850; 86900; 86901; 86922; 94760; J1644; J2469; P9058

== ENCOUNTER → 2020-01-23 | Day surgery (SDC) | payer OTHER ==
[~2020-01-23] MED LIST: CARBOPLATIN IVPB ONE; DEXAMETHASONE SODIUM PHOSPHATE 12 MG in SODIUM CHLORIDE 50 ML IVPB ONE; PALONOSETRON HCL 0.25 MG/5 ML VIAL IVPUSH ONE; SODIUM CHLORIDE IVPB ONE
[2020-01-23 16:49] LABS: BASO % 0.5 % (0-2.0); HEMATOCRIT 23.6 % (32.4-45.2); HEMOGLOBIN 7.4 GM/dL (10.7-15.3); LYMPH % 9.6 % (8-40); MCH 27.6 pg (25.7-33.7); MCHC 31.5 g/dl (32.0-36.0); MEAN CELL VOLUME 87.7 fl (80-96); MEAN PLT VOLUME 8.1 fl (7.5-11.1); MONO % 8.4 % (3.8-10.2); NEUT % 80.5 % (42.8-82.8); PLATELET COUNT 129 K/MM3 (134-434); RBC 2.69 M/mm3 (3.60-5.2); WHITE BLOOD COUNT 14.8 K/mm3 (4.0-10.0)
[2020-01-23 17:18] LABS: ALBUMIN 1.7 g/dl (3.4-5.0); BILIRUBIN,TOTAL 0.4 mg/dL (0.2-1); BLOOD UREA NITROGEN 37.1 mg/dL (7-18); CREATININE 5.9 mg/dL (0.55-1.3); POTASSIUM 4.6 mmol/L (3.5-5.1); TOT PROT 5.5 g/dl (6.4-8.2)
[2020-01-23 17:58] VITALS: TEMP 98.6
[2020-01-23 18:42] VITALS: BP 117/65; PULSE 84
[2020-01-24 05:06] LABS: MAGNESIUM 1.7 mg/dL (1.8-2.4)
== END | disposition home or self-care (01) ==
LOC: JONCCHEMO 06:09
PROVIDERS: ATTEND Internal Medicine Hematology & Oncology
DX: Z51.11 Encounter for antineoplastic chemotherapy (principal); C53.9 Malignant neoplasm of cervix uteri, unspecified
CPT/HCPCS: 36415; 36430; 36511; 80053; 83735; 85025; 86850; 86900; 86901; 86922; 96375; 96413; J2469; P9038; P9058

== ENCOUNTER 2020-01-24 15:47 | Day surgery (SDC) | payer OTHER ==
[2020-01-24 17:50] LABS: BASO % 0.3 % (0-2.0); HEMATOCRIT 27.5 % (32.4-45.2); HEMOGLOBIN 8.8 GM/dL (10.7-15.3); MCHC 32.1 g/dl (32.0-36.0); MEAN CELL VOLUME 87.1 fl (80-96); MEAN PLT VOLUME 8.4 fl (7.5-11.1); MONO % 3.2 % (3.8-10.2); NEUT % 93.5 % (42.8-82.8); PLATELET COUNT 132 K/MM3 (134-434); RBC 3.16 M/mm3 (3.60-5.2); RDW 17.6 % (11.6-15.6); WHITE BLOOD COUNT 14.7 K/mm3 (4.0-10.0)
[2020-01-24 18:27] LABS: ALBUMIN 1.8 g/dl (3.4-5.0); BILIRUBIN,TOTAL 0.2 mg/dL (0.2-1); BLOOD UREA NITROGEN 26.6 mg/dL (7-18); CALCIUM 7.8 mg/dL (8.5-10.1); CREATININE 3.6 mg/dL (0.55-1.3); POTASSIUM 4.1 mmol/L (3.5-5.1)
[2020-01-24 18:53] LABS: ANISOCYTOSIS 3+; MACROCYTOSIS 1+; PLATELET ESTIMATE NORMAL
[2020-01-25 05:31] VITALS: TEMP 98
[2020-01-25 11:21] LABS: BASO % 0.1 % (0-2.0); EOS % 0.1 % (0-4.5); HEMOGLOBIN 10.1 GM/dL (10.7-15.3); LYMPH % 4.4 % (8-40); MCH 28.3 pg (25.7-33.7); MCHC 32.7 g/dl (32.0-36.0); MEAN CELL VOLUME 86.5 fl (80-96); MEAN PLT VOLUME 8.3 fl (7.5-11.1); MONO % 5.3 % (3.8-10.2); NEUT % 90.1 % (42.8-82.8); PLATELET COUNT 136 K/MM3 (134-434); RBC 3.58 M/mm3 (3.60-5.2); RDW 17.2 % (11.6-15.6)
[2020-01-25 13:30] VITALS: BP 135/93; PULSE 83
== END 2020-01-25 15:34 | disposition home or self-care (01) ==
LOC: JONCBLOOD 15:47 → J7W 15:49 → JONCBLOOD 01-25 15:34
PROVIDERS: ATTEND Internal Medicine Hematology & Oncology
PROC: 30243N1 Transfusion of Nonautologous Red Blood Cells into Central Vein, Percutaneous Approach (ICD-10-PCS; principal; 2020-01-24)
DX: C53.9 Malignant neoplasm of cervix uteri, unspecified (principal)
CPT/HCPCS: 36415; 36430; 80053; 82607; 82746; 83010; 83615; 85025; 85045; 85651; 86140; 86850; 86880; 86900; 86901; 86922; P9058

== ENCOUNTER 2020-02-01 06:49 | Day surgery (SDC) | payer OTHER ==
[2020-02-01] MEDS ORDERED: PALONOSETRON HCL 0.25 MG/5 ML VIAL IVPUSH ONE (09:30)
[2020-02-01] MEDS ORDERED: DEXAMETHASONE SODIUM PHOSPHATE 12 MG in SODIUM CHLORIDE 50 ML IVPB ONE (09:30)
[2020-02-01] MEDS ORDERED: CARBOPLATIN IVPB ONE (10:00)
[2020-02-01] MEDS ORDERED: SODIUM CHLORIDE IVPB ONE (10:00)
[2020-02-01] MEDS ORDERED: ALTEPLASE 2 MG VIAL IVPUSH ONE (17:08)
[2020-02-01] MEDS ORDERED: LOPERAMIDE HCL 2 MG CAPSULE PO PRN (17:08)
[2020-02-01 17:53] LABS: BASO % 0.3 % (0-2.0); EOS % 0.8 % (0-4.5); HEMATOCRIT 29.2 % (32.4-45.2); HEMOGLOBIN 9.4 GM/dL (10.7-15.3); LYMPH % 7.3 % (8-40); MCH 28.8 pg (25.7-33.7); MCHC 32.2 g/dl (32.0-36.0); MEAN CELL VOLUME 89.7 fl (80-96); MEAN PLT VOLUME 7.8 fl (7.5-11.1); MONO % 7.3 % (3.8-10.2); NEUT % 84.3 % (42.8-82.8); PLATELET COUNT 66 K/MM3 (134-434); RBC 3.25 M/mm3 (3.60-5.2); RDW 16.6 % (11.6-15.6); WHITE BLOOD COUNT 8.8 K/mm3 (4.0-10.0)
[2020-02-01 18:22] LABS: ALBUMIN 1.7 g/dl (3.4-5.0); BILIRUBIN,TOTAL 0.3 mg/dL (0.2-1); BLOOD UREA NITROGEN 27.9 mg/dL (7-18); CALCIUM 7.6 mg/dL (8.5-10.1); CREATININE 4.8 mg/dL (0.55-1.3); POTASSIUM 3.6 mmol/L (3.5-5.1); TOT PROT 5.5 g/dl (6.4-8.2)
[2020-02-01 18:34] VITALS: PULSE 84; TEMP 98.9
[2020-02-01] MEDS ORDERED: PORTA CATH FLUSH 10 ML IVPUSH ONE (18:34)
[2020-02-01 18:58] VITALS: BP 159/83
== END 2020-02-01 18:58 | disposition home or self-care (01) ==
LOC: JONCCHEMO 06:49
PROVIDERS: ATTEND Internal Medicine Hematology & Oncology
PROC: 3E043GC Introduction of Other Therapeutic Substance into Central Vein, Percutaneous Approach (ICD-10-PCS; principal; 2020-02-01)
DX: Z76.89 Persons encountering health services in other specified circumstances (principal); C53.8 Malignant neoplasm of overlapping sites of cervix uteri
CPT/HCPCS: 36415; 80053; 85025; 96374; 96375; J2469; J2997

== ENCOUNTER 2020-02-03 08:24 | Day surgery (SDC) | payer OTHER ==
[2020-02-03] MEDS ORDERED: PALONOSETRON HCL 0.25 MG/5 ML VIAL IVPUSH ONE (12:30)
[2020-02-03] MEDS ORDERED: DEXAMETHASONE INJECTION 12 MG in SODIUM CHLORIDE 50 ML IVPB ONE (14:00)
[2020-02-03] MEDS ORDERED: SODIUM CHLORIDE IVPB ONE (14:30)
[2020-02-03] MEDS ORDERED: CARBOPLATIN IVPB ONE (14:30)
[2020-02-03 15:31] LABS: BASO % 0.4 % (0-2.0); EOS % 0.2 % (0-4.5); HEMATOCRIT 29.7 % (32.4-45.2); HEMOGLOBIN 9.7 GM/dL (10.7-15.3); LYMPH % 7.5 % (8-40); MCH 28.7 pg (25.7-33.7); MCHC 32.8 g/dl (32.0-36.0); MEAN CELL VOLUME 87.4 fl (80-96); MONO % 8.9 % (3.8-10.2); PLATELET COUNT 106 K/MM3 (134-434); RDW 16.5 % (11.6-15.6); WHITE BLOOD COUNT 12.7 K/mm3 (4.0-10.0)
[2020-02-03 16:11] LABS: BILIRUBIN,TOTAL 0.2 mg/dL (0.2-1); CREATININE 3.6 mg/dL (0.55-1.3); POTASSIUM 3.5 mmol/L (3.5-5.1)
[2020-02-03] MEDS ORDERED: PORTA CATH FLUSH 10 ML IVPUSH ONE (17:30)
[2020-02-03 17:54] VITALS: TEMP 97.3
[2020-02-03 17:57] VITALS: BP 113/72; PULSE 83
== END 2020-02-03 17:50 | disposition home or self-care (01) ==
LOC: JONCCHEMO 08:24
PROVIDERS: ATTEND Internal Medicine Hematology & Oncology
PROC: 3E04305 Introduction of Other Antineoplastic into Central Vein, Percutaneous Approach (ICD-10-PCS; principal; 2020-02-03)
PROC: 3E043GC Introduction of Other Therapeutic Substance into Central Vein, Percutaneous Approach (ICD-10-PCS; 2020-02-03)
DX: Z51.11 Encounter for antineoplastic chemotherapy (principal); C53.8 Malignant neoplasm of overlapping sites of cervix uteri
CPT/HCPCS: 36415; 80053; 82962; 85025; 96375; 96413; J1100; J2469

== ENCOUNTER 2020-02-04 13:53 | Inpatient (IN) | payer OTHER ==
--- NOTE | 2020-02-04 15:21 | PDOC ---
History of Present Illness - General Chief Complaint: Dialysis Shunt Problem Stated Complaint: CATHETER PROBLEM Time Seen by Provider: 02/04/20 14:39 - History of Present Illness Initial Comments: 02/04/20 15:13 Pt is a 39yo female with PMH of COVID-19(5 months ago), ADPCKD, +HPV, newly diagnosed cervical CA (October 2019), CKD (on dialysis via permacath //Thu) IDDM, recurrent fall (walks with a cane), mild persistent asthma, bipolar depression and anxiety disorder who was BIBEMS from dialysis for a clogged permacath. Patient reports an abnormal dialysis session on when there was a permacath problem. Today, she did not get dialysis, as the dialysis nurses were unable to unclog the permacath. She also got chemo yesterday, and complains of the weakness and abdominal pain that she gets with chemo. PMH/PSH: as above Home Medications Medication Instructions Recorded Albuterol 0.083% Nebulizer Sarina 1 neb NEB Q6H PRN 10/06/17 [Ventolin 0.083% Nebulizer Soln -] Budesonide/Formeterol Fumarate 2 puff IH BID 10/06/17 [SYMBICORT 80/4.5mcg -] Insulin Glargine,Hum.rec.anlog 50 unit SQ BID 10/06/17 [Lantus] Insulin Lispro [Humalog] 30 unit SQ TID 04/18/18 Esomeprazole Magnesium [Nexium 40 mg PO DAILY 05/28/18 24Hr] Gabapentin [Neurontin] 600 mg PO TID 10/09/19 Sevelamer Carbonate [Renvela -] 800 mg PO TIDCM #90 tab 10/12/19 Paroxetine HCl [Paxil -] 10 mg PO DAILY 11/18/19 Docusate Sodium [Colace -] 100 mg PO TID capsule 11/23/19 Sodium Bicarbonate - 1,300 mg PO BID tablet 11/23/19 Polyethylene Glycol 3350 [Miralax 17 gm PO DAILY PRN #1 bottle 12/28/19 119 gm Btl -] Acetaminophen [Tylenol -] 2 tab PO PRN 01/16/20 Oxycodone HCl [Roxicodone] 5 mg PO ASDIR 02/03/20 Allergies Allergy/AdvReac Type Severity Reaction Status Date / Time No Known Allergies Allergy Verified 02/04/20 16:20 ROS GENERAL/CONSTITUTIONAL: No fever or chills. No weakness. HEAD, EYES, EARS, NOSE AND THROAT: No change in vision. No ear pain or discharge. No sore throat. CARDIOVASCULAR: No chest pain or shortness of breath RESPIRATORY: No cough, wheezing, or hemoptysis. GASTROINTESTINAL: No nausea, vomiting, diarrhea or constipation. GENITOURINARY: No dysuria, frequency, or change in urination. MUSCULOSKELETAL: No joint or muscle swelling or pain. No neck or back pain. SKIN: No rash NEUROLOGIC: No headache, vertigo, loss of consciousness, or change in strength/sensation. ENDOCRINE: No increased thirst. No abnormal weight change HEMATOLOGIC/LYMPHATIC: No anemia, easy bleeding, or history of blood clots. ALLERGIC/IMMUNOLOGIC: No hives or skin allergy. PE GENERAL: Awake, alert, and fully oriented, in no acute distress HEAD: No signs of trauma, normocephalic, atraumatic EYES: PERRLA, EOMI, sclera anicteric, conjunctiva clear ENT: Auricles normal inspection, hearing grossly normal, nares patent, oropharynx clear without exudates. Moist mucosa NECK: Normal ROM, supple, no lymphadenopathy, JVD, or masses LUNGS: No distress, speaks full sentences, clear to auscultation bilaterally CHEST: permacath on right, port on left. No erythema, swelling, or fluctuance HEART: Regular rate and rhythm, normal S1 and S2, no murmurs, rubs or gallops, peripheral pulses normal and equal bilaterally. ABDOMEN: Soft, nontender, normoactive bowel sounds. No guarding, no rebound. No masses EXTREMITIES : Normal inspection, Normal range of motion, no edema. No clubbing or cyanosis. NEUROLOGICAL: Normal speech, normal gait, no focal sensorimotor deficits SKIN: Warm, Dry, normal turgor, no rashes or lesions noted Vital Signs Temp Pulse Resp BP Pulse Ox 98.2 F 80 18 179/87 H 99 02/04/20 14:20 02/04/20 14:20 02/04/20 17:49 02/04/20 14:20 02/04/20 17:49 MDM: Pt is a 39yo female with PMH of COVID-19(5 months ago), ADPCKD, +HPV, newly diagnosed cervical CA (October 2019), CKD (on dialysis via permacath //Thu) IDDM, recurrent fall (walks with a cane), mild persistent asthma, bipolar depression and anxiety disorder who was BIBEMS from dialysis for a clogged permacath. Spoke with vascular surgeon (Dr. Hall) and student teacher (Dr. Lambert) and they want the patient to be admitted. Dr. Hall will address the permacath issue on Thursday. Will get labs to r/o acute metabolic derangement and admit. -Labs do not show indication for emergent dialysis or any other emergent problem Laboratory Tests 02/04/20 02/04/20 02/04/20 15:50 16:00 16:00 WBC 8.2 RBC 3.22 L Hgb 9.3 L Hct 28.7 L MCV 89.0 MCH 28.9 MCHC 32.4 RDW 16.3 H Plt Count 83 L D MPV 8.5 Absolute Neuts (auto) 7.3 Neutrophils % 88.5 H Lymphocytes % 4.0 L D Monocytes % 7.3 Eosinophils % 0.1 Basophils % 0.1 Nucleated RBC % 0 Sodium 135 L Potassium 3.7 Chloride 102 Carbon Dioxide 25 Anion Gap 8 BUN 33.8 H Creatinine 3.6 H Est GFR (CKD-EPI)AfAm 17.47 Est GFR (CKD-EPI)NonAf 15.07 POC Glucometer 286 Random Glucose 300 H Calcium 7.6 L Total Bilirubin 0.3 AST 12 L ALT 11 L Alkaline Phosphatase 92 Total Protein 5.8 L Albumin 2.0 L -pending UA Awaiting call back from oncology regarding the need for dialysis to clear the chemo medications. 02/04/20 19:09 Signed out to night team Past History - Medical History Allergies/Adverse Reactions: Allergies Allergy/AdvReac Type Severity Reaction Status Date / Time No Known Allergies Allergy Verified 02/04/20 16:20 Home Medications: Ambulatory Orders Albuterol 0.083% Nebulizer Sarina [Ventolin 0.083% Nebulizer Soln -] 1 neb NEB Q6H PRN 10/06/17 Budesonide/Formeterol Fumarate [SYMBICORT 80/4.5mcg -] 2 puff IH BID 10/06/17 Insulin Glargine,Hum.rec.anlog [Lantus] 50 unit SQ BID 10/06/17 Insulin Lispro [Humalog] 30 unit SQ TID 04/18/18 Esomeprazole Magnesium [Nexium 24Hr] 40 mg PO DAILY 05/28/18 Gabapentin [Neurontin] 600 mg PO TID 10/09/19 Sevelamer Carbonate [Renvela -] 800 mg PO TIDCM #90 tab 10/12/19 Paroxetine HCl [Paxil -] 10 mg PO DAILY 11/18/19 Docusate Sodium [Colace -] 100 mg PO TID capsule 11/23/19 Sodium Bicarbonate - 1,300 mg PO BID tablet 11/23/19 Polyethylene Glycol 3350 [Miralax 119 gm Btl -] 17 gm PO DAILY PRN #1 bottle 12/28/19 Acetaminophen [Tylenol -] 2 tab PO PRN 01/16/20 Oxycodone HCl [Roxicodone] 5 mg PO ASDIR 02/03/20 Anemia: Yes Asthma: Yes Cancer: Yes (cervical) Cardiac Disorders: No CVA: No COPD: No CHF: No Dementia: No Diabetes: Yes (IDDM) GI Disorders: Yes (acid reflux) Disorders: Yes (Autosomal dominant polycystic kidney disease) HTN: No Hypercholesterolemia: No Liver Disease: No Psychiatric Problems: Yes (DEPRESSION/ANXIETY/BIPOLAR) Seizures: No Thyroid Disease: No - Surgical History Abdominal Surgery: Yes Appendectomy: No Cardiac Surgery: No Cholecystectomy: No Lung Surgery: No Neurologic Surgery: No Orthopedic Surgery: No - Reproductive History Is Patient Now?: No Dysfunctional Uterine Bleeding: Yes - Psycho-Social/Smoking History Smoking History: Never smoked Have you smoked in the past 12 months: No Number of Cigarettes Smoked Daily: 3 If you are a former smoker, when did you quit?: 2004 'Breaking Loose' booklet given: 01/16/20 - Substance Abuse Hx (Audit-C & DAST Scrn) How often the patient has a drink containing alcohol: Never Score: In Men: 4 or > Positive; In Women: 3 or > Positive: 0 Screen Result (Pos requires Nsg. Audit-10AR): Negative In the last yr the pt used illegal drug/Rx for NonMed reason: No Score: Yes response is considered Positive: 0 Screen Result (Positive result requires Nsg. DAST-10): Negative *Physical Exam - Vital Signs Last Vital Signs Temp Pulse Resp BP Pulse Ox 98.2 F 80 18 179/87 H 99 02/04/20 14:20 02/04/20 14:20 02/04/20 14:20 02/04/20 14:20 02/04/20 14:20 ED Treatment Course - LABORATORY CBC & Chemistry Diagram: 02/04/20 16:00 02/04/20 16:00 Discharge - Discharge Information Problems reviewed: Yes Clinical Impression/Diagnosis: Clotted dialysis access Qualifiers: Encounter type: initial encounter Qualified Code(s): T82.49XA - Other complication of vascular dialysis catheter, initial encounter Condition: Stable - Admission Yes - Follow up/Referral Referrals: Laxmi Read NP [Primary Care Provider] - - Patient Discharge Instructions - Post Discharge Activity
--- NOTE | 2020-02-04 15:45 | PDOC ---
Documentation entered by Mai Ramos SCRIBE, acting as scribe for Eyal Chung MD. Eyal Chung MD: This documentation has been prepared by the scribe, Mai Ramos SCRIBE, under my direction and personally reviewed by me in its entirety. I confirm that the documentation accurately reflects all work, treatment, procedures, and medical decision making performed by me. Attending Attestation - Resident Resident Name: Jim Awan - ED Attending Attestation I have performed the following: I have examined & evaluated the patient, The case was reviewed & discussed with the resident, I agree w/resident's findings & plan, Exceptions are as noted - HPI HPI: 02/04/20 14:40 Patient is a 40 year old female with a significant past medical history of bipolar, depression, anxiety disorder, asthma, diabetes, ADPCKD, +HPV, CKD on dialysis, recurrent fall (walks with a cane), and newly diagnosed cervical CA (October 2019), who presents to the ED with a clogged permacath. Patient stated her last dialysis session (on ) was not executed properly due to issues with her permacath and that now today she was not able to get dialysis because nurses were unable to unclog her permacath. Patient endorses: weakness and abdominal pain secondary to her Chemo treatments. Patient denies: any other related symptoms. Allergies: NKDA - Physicial Exam PE: 02/04/20 15:43 GENERAL: The patient is awake, alert, and fully oriented, Nontoxic - in no acute distress. HEAD: Normocephalic, atraumatic. EYES: extraocular movements intact, sclera anicteric, conjunctiva clear. ENT: Normal voice, Moist mucous membranes. NECK: Normal range of motion, supple LUNGS: Breath sounds equal, clear to auscultation bilaterally. No wheezes, no rhonchi, no rales. CHEST: catheter in R chest HEART: Regular rate and rhythm, normal S1 and S2 without murmur, rub or gallop. ABDOMEN: Soft, nontender, No guarding, no rebound. No CVA tenderness EXTREMITIES: Normal range of motion, no edema. NEUROLOGICAL: No facial assymetry, Normal speech, moving all 4 ext spontaneously and symmetrially PSYCH: Normal mood, normal affect. SKIN: Warm, Dry, normal turgor, - Medical Decision Making 02/04/20 15:44 40-year-old presenting with clotted catheter, otherwise asymptomatic. Last dialysis on thrusday but may not have beenc omplete will obtain blood work/ekg to eval for metabolic derangement/hyperK no signs of fluid overload dw vascular requests admission for further management Discharge - Discharge Information Problems reviewed: Yes Clinical Impression/Diagnosis: ESRD (end stage renal disease) Clotted dialysis access Qualifiers: Encounter type: initial encounter Qualified Code(s): T82.49XA - Other complication of vascular dialysis catheter, initial encounter Condition: Stable - Follow up/Referral - Patient Discharge Instructions - Post Discharge Activity
--- NOTE | 2020-02-04 16:14 | CONSULT ---
Consult Consult Specialty:: Nephrology Reason for Consultation:: ESRD - History of Present Illness Chief Complaint: permacath not working History of Present Illness: Pt is a 40 year old female with pmhx of bipolar, depression, anxiety, ashtma. ADPKD, ESRD, HPV and cervical cancer on chemo who presents to the ER after her permacath was not working in HD. She last had a full dialysis on . She had about half an hour of HD today. Vascular is aware and the plan was to change the permacth on Thursday. Cathflow did not work. She is awake and alert. She feels well and has no complaints. - History Source History Provided By: Patient, Medical Record - Past Medical History Pulmonary: Yes: Asthma Renal/: Yes: Renal Inusuff, Hemodialysis, Other (PCKD) ...LMP: 01/22/20 ...: No Infectious Disease: Yes: Other (HPV+, COVID+ (3mo ago)) Psych: Yes: Anxiety, Bipolar Endocrine: Yes: Diabetes Mellitus - Past Surgical History Past Surgical History: Yes: - Alcohol/Substance Use Hx Alcohol Use: No History of Substance Use: reports: None - Smoking History Smoking history: Never smoked Have you smoked in the past 12 months: No Aproximately how many cigarettes per day: 3 If you are a former smoker, when did you quit?: 2004 - Social History Usual Living Arrangement: With Child (Age 10, 16) History of Recent Travel: No Home Medications - Allergies Allergies/Adverse Reactions: Allergies Allergy/AdvReac Type Severity Reaction Status Date / Time No Known Allergies Allergy Verified 12/20/19 12:45 - Home Medications Home Medications: Ambulatory Orders Albuterol 0.083% Nebulizer Sarina [Ventolin 0.083% Nebulizer Soln -] 1 neb NEB Q6H PRN 10/06/17 Budesonide/Formeterol Fumarate [SYMBICORT 80/4.5mcg -] 2 puff IH BID 10/06/17 Insulin Glargine,Hum.rec.anlog [Lantus] 50 unit SQ BID 10/06/17 Insulin Lispro [Humalog] 30 unit SQ TID 04/18/18 Esomeprazole Magnesium [Nexium 24Hr] 40 mg PO DAILY 05/28/18 Gabapentin [Neurontin] 600 mg PO TID 10/09/19 Sevelamer Carbonate [Renvela -] 800 mg PO TIDCM #90 tab 10/12/19 Paroxetine HCl [Paxil -] 10 mg PO DAILY 11/18/19 Docusate Sodium [Colace -] 100 mg PO TID capsule 11/23/19 Sodium Bicarbonate - 1,300 mg PO BID tablet 11/23/19 Polyethylene Glycol 3350 [Miralax 119 gm Btl -] 17 gm PO DAILY PRN #1 bottle 12/28/19 Acetaminophen [Tylenol -] 2 tab PO PRN 01/16/20 Oxycodone HCl [Roxicodone] 5 mg PO ASDIR 02/03/20 Family Medical History Family History: Denies Review of Systems - Review of Systems Constitutional: reports: No Symptoms Eyes: reports: No Symptoms HENT: reports: No Symptoms Neck: reports: No Symptoms Cardiovascular: reports: No Symptoms Respiratory: reports: No Symptoms Gastrointestinal: reports: No Symptoms Genitourinary: reports: No Symptoms Musculoskeletal: reports: No Symptoms Integumentary: reports: No Symptoms Neurological: reports: No Symptoms Endocrine: reports: No Symptoms Hematology/Lymphatic: reports: No Symptoms Psychiatric: reports: No Symptoms Physical Exam Vital Signs: Vital Signs Temperature 98.2 F 02/04/20 14:20 Pulse Rate 80 02/04/20 14:20 Respiratory Rate 18 02/04/20 14:20 Blood Pressure 179/87 H 02/04/20 14:20 O2 Sat by Pulse Oximetry (%) 99 02/04/20 14:20 Constitutional: Yes: Calm Eyes: Yes: Conjunctiva Clear HENT: Yes: Atraumatic Neck: Yes: Supple Cardiovascular: Yes: S1, S2 Respiratory: Yes: CTA Bilaterally Gastrointestinal: Yes: Normal Bowel Sounds, Soft Renal/: Yes: WNL Musculoskeletal: Yes: WNL Edema: No Neurological: Yes: Oriented Psychiatric: Yes: Oriented Problem List - Problems (1) ESRD (end stage renal disease) Code(s): N18.6 - END STAGE RENAL DISEASE (2) ESRD on hemodialysis Code(s): N18.6 - END STAGE RENAL DISEASE; Z99.2 - DEPENDENCE ON RENAL DIALYSIS (3) Hemodialysis catheter malfunction Code(s): T82.41XA - BREAKDOWN (MECHANICAL) OF VASCULAR DIALYSIS CATHETER, INIT (4) Uterine cancer Code(s): C55 - MALIGNANT NEOPLASM OF UTERUS, PART UNSPECIFIED (5) PCK (polycystic kidney disease) Code(s): Q61.3 - POLYCYSTIC KIDNEY, UNSPECIFIED Assessment/Plan Impression 1. ESRD 2. Chronic anemia 3. cervical cancer 4. Metabolic acidosis 5. DM 6. polycystic kidney disease 7. hd catheter malfunction Plan - check cbc and bmp - vascular eval to change catheter - cathflow did not work - resume home meds - renal diet - npo past midnight tomorrow
[2020-02-04 16:56] LABS: BASO % 0.1 % (0-2.0); EOS % 0.1 % (0-4.5); HEMATOCRIT 28.7 % (32.4-45.2); HEMOGLOBIN 9.3 GM/dL (10.7-15.3); MCH 28.9 pg (25.7-33.7); MCHC 32.4 g/dl (32.0-36.0); MEAN PLT VOLUME 8.5 fl (7.5-11.1); MONO % 7.3 % (3.8-10.2); NEUT % 88.5 % (42.8-82.8); PLATELET COUNT 83 K/MM3 (134-434); RBC 3.22 M/mm3 (3.60-5.2); RDW 16.3 % (11.6-15.6); WHITE BLOOD COUNT 8.2 K/mm3 (4.0-10.0)
[2020-02-04 17:21] LABS: BILIRUBIN,TOTAL 0.3 mg/dL (0.2-1); BLOOD UREA NITROGEN 33.8 mg/dL (7-18); CALCIUM 7.6 mg/dL (8.5-10.1); CREATININE 3.6 mg/dL (0.55-1.3); POTASSIUM 3.7 mmol/L (3.5-5.1); TOT PROT 5.8 g/dl (6.4-8.2)
[2020-02-04] MEDS ORDERED: oxyCODONE HCL 5 MG TABLET PO ONE (19:12)
--- NOTE | 2020-02-04 19:22 | PDOC ---
*Physical Exam - Vital Signs Last Vital Signs Temp Pulse Resp BP Pulse Ox 98.2 F 80 18 179/87 H 99 02/04/20 14:20 02/04/20 14:20 02/04/20 17:49 02/04/20 14:20 02/04/20 17:49 ED Treatment Course - LABORATORY CBC & Chemistry Diagram: 02/04/20 16:00 02/04/20 16:00 - ADDITIONAL ORDERS Additional order review: Laboratory Results 02/04/20 02/04/20 16:00 15:50 Sodium 135 L Potassium 3.7 Chloride 102 Carbon Dioxide 25 Anion Gap 8 BUN 33.8 H Creatinine 3.6 H Est GFR (CKD-EPI)AfAm 17.47 Est GFR (CKD-EPI)NonAf 15.07 POC Glucometer 286 Random Glucose 300 H Calcium 7.6 L Total Bilirubin 0.3 AST 12 L ALT 11 L Alkaline Phosphatase 92 Total Protein 5.8 L Albumin 2.0 L 02/04/20 02/04/20 16:00 15:50 RBC 3.22 L MCV 89.0 MCHC 32.4 RDW 16.3 H MPV 8.5 Neutrophils % 88.5 H Lymphocytes % 4.0 L D Monocytes % 7.3 Eosinophils % 0.1 Basophils % 0.1 POC Glucometer 286 Medical Decision Making - Medical Decision Making 02/04/20 19:19 Sign out received from Dr. Awan. Patient is 40 with simultaneous PCKD w/ ESRD on HD as well as late state cervical CA on chemotherapy. Last chemo yesterday. Today was getting HD but cath clogged, needs vascular eval but reported [facility] will see on Thursday. Dr. Lambert involved in case. Plan for admission for monitoring over the weekend given chemo and clogged cath. Labs WNL. Pending callback for admission as well. Oncology consulted, pending callback. Given home dose 5mg oxycodone. [X] ADMIT [] Onc callback 02/04/20 19:[address] Tika Delatorre with admitting team, accepts to Med/Surg for weekend monitoring. Patient resting in bed in NAD, doing well at this time. Discharge - Discharge Information Problems reviewed: Yes Clinical Impression/Diagnosis: Clotted dialysis access Qualifiers: Encounter type: initial encounter Qualified Code(s): T82.49XA - Other complication of vascular dialysis catheter, initial encounter Condition: Stable - Follow up/Referral Referrals: Laxmi Read NP [Primary Care Provider] - - Patient Discharge Instructions - Post Discharge Activity
--- NOTE | 2020-02-04 19:25 | PN ---
Teaching Attending Note Name of Resident: Tom Yung ATTENDING PHYSICIAN STATEMENT I saw and evaluated the patient. I reviewed the resident's note and discussed the case with the resident. I agree with the resident's findings and plan as documented. SUBJECTIVE: Patient is a 39 year old woman with a PMH of COVID-19 infection (5 months ago), ADPKD, +HPV, Right kidney stent, Kidney stones, newly diagnosed Cervical cancer (October 2019 - on chemotherapy), Menometrorrhagia, ESRD (hemodialysis via permacath //Thu), IDDM, Recurrent falls (walks with a cane), Asthma, Bipolar depression and Anxiety disorder who was brought in from dialysis for a clogged permacath. Patient reports an abnormal dialysis session on when there was a permacath problem. Today, she did not get dialysis, as the dialysis nurses were unable to unclog the permacath. She also got chemotherapy yesterday, and complains of the weakness and abdominal pain that she gets with chemotherapy. Has had trouble starting to urinate and been unable to empty her bladder. Has had loose bowel movements daily - ?says since she started chemotherapy and now wears adult diapers. Patient denies chest pain, shortness of breath, abdominal pain, headache, palpitations, dizziness, nausea, vomiting, diarrhea, constipation, dysuria, melena, hematochezia or hematuria. Former smoker. Denies alcohol, tobacco or illicit drug use. No sick contacts or recent travels. Patient has a family history of HTN, DM in father and kidney disease in mother and daughter has polycystic kidney disease. OBJECTIVE: Alert Vital Signs Period Temp Pulse Resp BP Sys/Farah Pulse Ox Last 24 Hr 98.2 F 80 18-18 179/87 99-99 HEENT: No Jaundice, eye redness or discharge, PERRLA, EOMI. Normocephalic, atraumatic. External ears are normal and hearing is grossly intact. No nasal discharge. Neck: Supple, nontender. No palpable adenopathy or thyromegaly. No JVD Chest: Good effort. Clear to auscultation and percussion. Heart: Regular. No S3, rub or murmur Abdomen: Not distended, soft, suprapubic tenderness and no HSM. No rebound or guarding. Normal bowel sounds. Ext: Peripheral pulses intact. No leg edema. Skin: Warm and dry. No petechiae, rash or ecchymosis. Neuro: Alert. Oriented x3. CN 2-12 grossly intact. Sensation grossly intact in all four extremities and DTR are symmetric. Psych: Appropriate mood and affect. Good insight. Home Medications Medication Instructions Recorded Albuterol 0.083% Nebulizer Sarina 1 neb NEB Q6H PRN 10/06/17 [Ventolin 0.083% Nebulizer Soln -] Budesonide/Formeterol Fumarate 2 puff IH BID 10/06/17 [SYMBICORT 80/4.5mcg -] Insulin Glargine,Hum.rec.anlog 50 unit SQ BID 10/06/17 [Lantus] Insulin Lispro [Humalog] 30 unit SQ TID 04/18/18 Esomeprazole Magnesium [Nexium 40 mg PO DAILY 05/28/18 24Hr] Gabapentin [Neurontin] 600 mg PO TID 10/09/19 Sevelamer Carbonate [Renvela -] 800 mg PO TIDCM #90 tab 10/12/19 Paroxetine HCl [Paxil -] 10 mg PO DAILY 11/18/19 Docusate Sodium [Colace -] 100 mg PO TID capsule 11/23/19 Sodium Bicarbonate - 1,300 mg PO BID tablet 11/23/19 Polyethylene Glycol 3350 [Miralax 17 gm PO DAILY PRN #1 bottle 12/28/19 119 gm Btl -] Acetaminophen [Tylenol -] 2 tab PO PRN 01/16/20 Oxycodone HCl [Roxicodone] 5 mg PO ASDIR 02/03/20 Abnormal Lab Results 02/04/20 02/04/20 16:00 16:00 RBC 3.22 L Hgb 9.3 L Hct 28.7 L RDW 16.3 H Plt Count 83 L D Neutrophils % 88.5 H Lymphocytes % 4.0 L D Sodium 135 L BUN 33.8 H Creatinine 3.6 H Random Glucose 300 H Calcium 7.6 L AST 12 L ALT 11 L Total Protein 5.8 L Albumin 2.0 L Current Medications Generic Name Dose Route Start Last Admin Trade Name Freq PRN Reason Stop Dose Admin Insulin Aspart 0 vial 02/04/20 23:00 Novolog Vial Sliding Scale - SQ TIDAC [facility] Protocol Oxycodone HCl 5 mg 02/04/20 20:45 Roxicodone - PO Q6H PRN PAIN LEVEL 7 - 10 ASSESSMENT AND PLAN: 1. ESRD/Clotted permacath - CXR shows cardiomegaly with right side permacath, left jugular port and increased interstitial markings. Patient seen by Nephrology and plans being made for permacath declogging. ER staff prescribed Oxycodone for the patient. EKG shows NSR at 82/minute and QTc [address]-T wave changes. Viral testing for COVID-19 ordered and patient placed on airborne, droplet and contact isolation. Urinary symptoms may be related to her cancer. Will get a bladder scan to rule out urinary retention. Stool for culture, Ova&Parasites, C. Difficile toxin and Novovirus if diarrhea persists. Will continue comprehensive care for all of patients comorbid conditions. 2. Uncontrolled DM For now, we will hold the home diabetes drugs and implement sliding scale insulin regimen. Provide comprehensive diabetes care with patient teaching and counseling about the importance of adherence to prescribed diabetes regimen, euglycemia, eye care and foot care. 3. Hypertension Will restart suitable outpatient antihypertensive drugs when clinically appropriate. Subsequently, will revise regimen to ensure [id number] excellent BP control. Patient counseled on the injurious effects of uncontrolled hypertension. Nonpharmacologic measures to control hypertension like weight loss, salt restriction and exercise stressed. Importance of adherence to treatment regimen and attainment of normotension emphasized. 4. Hypoalbuminemia - Possibly due to combined effects of malnutrition and inflammation associated with comorbid conditions. Will ensure adequate dietary protein intake and also consult aquaculture director. Urinalysis pending. 5. Anemia Likely multifactorial. Will do basic anemia work up including serial stool guaiacs, reticulocyte count and iron studies. 6. Obesity Counseled on the risks associated with obesity. Will provide trice ent all the necessary assistance, counseling and positive reinforcement to facilitate weight loss. Consult aquaculture director. 7. DVT prophylaxis - Heparin 5000u sq tid. 8. Advance directives - Full code
[2020-02-04] MEDS ORDERED: oxyCODONE HCL 5 MG TABLET ONE (20:13)
[2020-02-04] MEDS ORDERED: oxyCODONE HCL 5 MG TABLET PO PRN (20:45)
--- NOTE | 2020-02-04 21:06 | HP ---
CHIEF COMPLAINT: clogged permacath PCP: Laxmi Read NP HISTORY OF PRESENT ILLNESS: Pt is a 40 year old female with PMHx of cervical cancer (dx 10/2019; on chemo since 11/2019), ESRD on HD since 10/2019, polycystic kidney disease, DM1, HPV+, bipolar, depression, anxiety, asthma presenting to the ED from he dialysis centre due to failed HD as her permacath was clogged. Pt states she receives dialysis on , and was unable to receive todays dialysis. Her last dialysis session was on which was completed successfully. Pt states her last chemotherapy session was yesterday, complaining of weakness and chronic abdominal pain. Pt also complains of feelings of incomplete voiding, denies any hematuria or dysuria. Pt states she has trouble starting her urination, and feels as it is incomplete after she is done. Pt also states she has 3-4 episodes of diarrhea since her chemotherapy started, sometimes to the point she cannot reach the bathroom so she wears an adult diaper. Pt states she has not had an episode of diarrhea today but is feeling the urgency to go soon. Pt denies any fever, chills, SOB, leg swelling, nausea, vomiting. ER course was notable for: (1) EKG NSR, no ischemic ST wave changes, no T wave changes (2) (3) Recent Travel: Denies PAST MEDICAL HISTORY: As stated above PAST SURGICAL HISTORY: C section x 2 JJ stent in R kidney Social History: Smoking: Quit 20 years prior Alcohol: Rarely Drugs: Denies Allergies No Known Allergies Allergy (Verified 02/04/20 16:20) HOME MEDICATIONS: Home Medications Medication Instructions Recorded Albuterol 0.083% Nebulizer Sarina 1 neb NEB Q6H PRN 10/06/17 [Ventolin 0.083% Nebulizer Soln -] Budesonide/Formeterol Fumarate 2 puff IH BID 10/06/17 [SYMBICORT 80/4.5mcg -] Insulin Glargine,Hum.rec.anlog 50 unit SQ BID 10/06/17 [Lantus] Insulin Lispro [Humalog] 30 unit SQ TID 04/18/18 Esomeprazole Magnesium [Nexium 40 mg PO DAILY 05/28/18 24Hr] Gabapentin [Neurontin] 600 mg PO TID 10/09/19 Sevelamer Carbonate [Renvela -] 800 mg PO TIDCM #90 tab 10/12/19 Paroxetine HCl [Paxil -] 10 mg PO DAILY 11/18/19 Docusate Sodium [Colace -] 100 mg PO TID capsule 11/23/19 Sodium Bicarbonate - 1,300 mg PO BID tablet 11/23/19 Polyethylene Glycol 3350 [Miralax 17 gm PO DAILY PRN #1 bottle 12/28/19 119 gm Btl -] Acetaminophen [Tylenol -] 2 tab PO PRN 01/16/20 Oxycodone HCl [Roxicodone] 5 mg PO ASDIR 02/03/20 REVIEW OF SYSTEMS CONSTITUTIONAL: Weakness Absent: fever, chills, diaphoresis, malaise, loss of appetite, weight change HEENT: Absent: rhinorrhea, nasal congestion, throat pain, throat swelling, difficulty swallowing, mouth swelling, ear pain, eye pain, visual changes CARDIOVASCULAR: Absent: chest pain, syncope, palpitations, irregular heart rate, lightheadedness, peripheral edema RESPIRATORY: Absent: cough, shortness of breath, dyspnea with exertion, orthopnea, wheezing, stridor, hemoptysis GASTROINTESTINAL: Lower abdominal pain (chronic) Diarrhea Absent: abdominal distension, nausea, vomiting, constipation, melena, hematochezia GENITOURINARY: Urgency due to feeling of incomplete voiding, trouble starting urination Absent: dysuria, frequency, hesitancy, hematuria, flank pain, genital pain MUSCULOSKELETAL: Absent: myalgia, arthralgia, joint swelling, back pain, neck pain SKIN: Absent: rash, itching, pallor HEMATOLOGIC/IMMUNOLOGIC: Absent: easy bleeding, easy bruising, lymphadenopathy, frequent infections ENDOCRINE: Absent: unexplained weight gain, unexplained weight loss, heat intolerance, cold intolerance NEUROLOGIC: Numbness on bottom of feet causing unsteady gait Absent: headache, focal weakness or paresthesias, dizziness, seizure, mental status changes, bladder or bowel incontinence PSYCHIATRIC: Absent: anxiety, depression, suicidal or homicidal ideation, hallucinations. PHYSICAL EXAMINATION Vital Signs - 24 hr 02/04/20 02/04/20 02/04/20 14:20 17:49 18:45 Temperature 98.2 F Pulse Rate 80 Pulse Rate [ 78 Apical] Respiratory 18 18 18 Rate Blood Pressure 179/87 H Blood Pressure 160/92 [Right Arm] O2 Sat by Pulse 99 99 98 Oximetry (%) GENERAL: Awake, alert, and fully oriented, in no acute distress. HEAD: Normal with no signs of trauma. EYES: Pupils equal, round and reactive to light, extraocular movements intact, sclera anicteric, conjunctiva clear. No lid lag. EARS, NOSE, THROAT: Ears normal, nares patent, oropharynx clear without exudates. Moist mucous membranes. NECK: Normal range of motion, supple without lymphadenopathy, JVD, or masses. LUNGS: Breath sounds equal, clear to auscultation bilaterally. No wheezes, and no crackles. No accessory muscle use. HEART: Regular rate and rhythm, normal S1 and S2 without murmur, rub or gallop. ABDOMEN: Soft, tender in lower not distended, normoactive bowel sounds, no guarding, no rebound, no masses. No hepatomegaly or splenomegaly. MUSCULOSKELETAL: Normal range of motion at all joints. No bony deformities or tenderness. No CVA tenderness. UPPER EXTREMITIES: 2+ pulses, warm, well-perfused. No cyanosis. No clubbing. No peripheral edema. LOWER EXTREMITIES: 2+ pulses, warm, well-perfused. No calf tenderness. No peripheral edema. NEUROLOGICAL: Cranial nerves II-XII intact. Normal speech. Normal gait. PSYCHIATRIC: Cooperative. Good eye contact. Appropriate mood and affect. SKIN: Warm, dry, normal turgor, no rashes or lesions noted, normal capillary refill. Laboratory Results - last 24 hr 02/04/20 02/04/20 02/04/20 15:50 16:00 16:00 WBC 8.2 RBC 3.22 L Hgb 9.3 L Hct 28.7 L MCV 89.0 MCH 28.9 MCHC 32.4 RDW 16.3 H Plt Count 83 L D MPV 8.5 Absolute Neuts (auto) 7.3 Neutrophils % 88.5 H Lymphocytes % 4.0 L D Monocytes % 7.3 Eosinophils % 0.1 Basophils % 0.1 Nucleated RBC % 0 Sodium 135 L Potassium 3.7 Chloride 102 Carbon Dioxide 25 Anion Gap 8 BUN 33.8 H Creatinine 3.6 H Est GFR (CKD-EPI)AfAm 17.47 Est GFR (CKD-EPI)NonAf 15.07 POC Glucometer 286 Random Glucose 300 H Calcium 7.6 L Total Bilirubin 0.3 AST 12 L ALT 11 L Alkaline Phosphatase 92 Total Protein 5.8 L Albumin 2.0 L ASSESSMENT/PLAN: Pt is a 40 year old female with PMHx cervical cancer (dx 10/2019; on chemo since 11/2019), ESRD on HD since 10/2019, polycystic kidney disease, DM1, HPV+, bipolar, depression, anxiety, asthma presenting to the ED from he dialysis centre due to failed HD as her permacath was clogged. #ESRD/clogged cath -R sided permath blocked -No signs of fluid overload, normal electrolytes; continue to monitor -Consulted vascular, renal #Dysuria -Trouble starting urinatoin and feelings of incomplete voiding -Bladder scan and UA ordered #T1DM -bG 300 -SSI and BGM -Home DM meds held #Cervical Cancer Stage IIIB -Consulted hem/onc Dr. Dolan -F/u recs -Oxycodone 5mg PRN #Hx of HTN -On losartan #Hx of anemia -H/H 9.3/28.7 -Likely multifactorial -FOBT, retic, iron studies #Obesity -Conunseled on risks associated with obesity FEN: No fluids Monitor electrolytes Salt/diabetic controlled diet PPx: SCD Dispo Admitted med surg. F/u with vascular and renal for management of clogged cath and HD needs. Monitor electrolytes. Family Medical History Family History: As Documented Visit type - Emergency Visit Emergency Visit: Yes ED Registration Date: 02/04/20 Care time: The patient presented to the Emergency Department on the above date and was hospitalized for further evaluation of their emergent condition. - New Patient This patient is new to me today: No - Critical Care Critical Care patient: No ATTENDING PHYSICIAN STATEMENT I saw and evaluated the patient. I reviewed the resident's note and discussed the case with the resident. I agree with the resident's findings and plan as documented. SUBJECTIVE: OBJECTIVE: ASSESSMENT AND PLAN:
[2020-02-04] MEDS ORDERED: POLYETHYLENE GLYCOL 3350 119 GM BTL PO PRN (22:10)
[2020-02-04] MEDS: INSULIN SLIDING SCALE (NOVOLOG) 1 VIAL SQ SCH (23:18)
[2020-02-05] MEDS ORDERED: oxyCODONE HCL 5 MG TABLET ONE (01:38)
[2020-02-05] MEDS ORDERED: morphine CARPU-JECT 2 MG/1 ML DISP.SYRIN IVPUSH ONE (02:40)
[2020-02-05] MEDS ORDERED: MORPHINE SULFATE 2 MG/ML VIAL IVPUSH ONE (02:40)
[2020-02-05] MEDS ORDERED: MELATONIN 5 MG TABLETS PO ONE (02:41)
[2020-02-05] MEDS ORDERED: MORPHINE SULFATE 2 MG/ML VIAL ONE ×2 (02:44→06:47)
[2020-02-05] MEDS ORDERED: DOCUSATE SODIUM 100 MG CAPSULE (FP) PO SCH (06:00)
[2020-02-05] MEDS ORDERED: DOCUSATE SODIUM 100 MG CAPSULE (FP) PO ONE (06:52)
[2020-02-05] MEDS ORDERED: SEVELAMER CARBONATE 800 MG TAB (FP) PO SCH (08:00)
[2020-02-05] MEDS: INSULIN SLIDING SCALE (NOVOLOG) 1 VIAL SQ SCH ×3 (08:40→16:56)
[2020-02-05] MEDS: SEVELAMER CARBONATE 800 MG TAB (FP) PO SCH ×3 (09:39→17:02)
[2020-02-05] MEDS ORDERED: SODIUM BICARBONATE 650 MG TABLET PO SCH (10:00)
[2020-02-05] MEDS ORDERED: PARoxetine HCL 10 MG TABLET ONE (10:37)
[2020-02-05] MEDS ORDERED: LOSARTAN POTASSIUM 50 MG TABLET (FP) ONE (10:37)
--- NOTE | 2020-02-05 10:42 | PN ---
Progress Note (short form) - Note Progress Note: SUBJECTIVE: Feeling okay, no complaints. Mild chronic Lower abdominal/pelvic discomfort. Diarrhea resolving. No PV bleeding. No SOB/fever/chills/nausea/vomiting. OBJECTIVE: Afebrile, Hemodynamically stable. Last Vital Signs Temp Pulse Resp BP Pulse Ox 98.3 F 78 20 144/60 100 02/05/20 09:52 02/05/20 09:52 02/05/20 09:52 02/05/20 09:52 02/05/20 09:52 HEENT - Atraumatic, Normocephalic. Heart - S1, S2, RRR Lungs - clear to auscultation Abdomen - High BMI, Soft, mild LQ tenderness bilaterally. Bowel Sounds normal Extremities - no edema, no calf tenderness. Neuro - AAO x 3. Tone/Power normal. Laboratory Results - last 24 hr 02/04/20 02/04/20 02/04/20 15:50 16:00 16:00 WBC 8.2 RBC 3.22 L Hgb 9.3 L Hct 28.7 L MCV 89.0 MCH 28.9 MCHC 32.4 RDW 16.3 H Plt Count 83 L D MPV 8.5 Absolute Neuts (auto) 7.3 Neutrophils % 88.5 H Lymphocytes % 4.0 L D Monocytes % 7.3 Eosinophils % 0.1 Basophils % 0.1 Nucleated RBC % 0 Sodium 135 L Potassium 3.7 Chloride 102 Carbon Dioxide 25 Anion Gap 8 BUN 33.8 H Creatinine 3.6 H Est GFR (CKD-EPI)AfAm 17.47 Est GFR (CKD-EPI)NonAf 15.07 POC Glucometer 286 Random Glucose 300 H Calcium 7.6 L Total Bilirubin 0.3 AST 12 L ALT 11 L Alkaline Phosphatase 92 Total Protein 5.8 L Albumin 2.0 L 02/04/20 02/05/20 02/05/20 21:23 07:06 08:40 WBC RBC Hgb Hct MCV MCH MCHC RDW Plt Count MPV Absolute Neuts (auto) Neutrophils % Lymphocytes % Monocytes % Eosinophils % Basophils % Nucleated RBC % Sodium Potassium Chloride Carbon Dioxide Anion Gap BUN Creatinine Est GFR (CKD-EPI)AfAm Est GFR (CKD-EPI)NonAf POC Glucometer 249 198 193 Random Glucose Calcium Total Bilirubin AST ALT Alkaline Phosphatase Total Protein Albumin Current Medications Generic Name Dose Route Start Last Admin Trade Name Freq PRN Reason Stop Dose Admin Docusate Sodium 100 mg 02/05/20 06:00 02/05/20 06:51 Colace - PO 100 mg TID UMBERTO Administration Insulin Aspart 0 vial 02/04/20 23:00 02/05/20 08:40 Novolog Vial Sliding Scale - SQ 2 units TIDAC UMBERTO Administration Protocol Insulin Detemir 15 units 02/05/20 22:00 Levemir Vial SQ HS UMBERTO Losartan Potassium 50 mg 02/05/20 10:00 Cozaar - PO DAILY UMBERTO Oxycodone HCl 5 mg 02/04/20 20:45 02/05/20 01:39 Roxicodone - PO 5 mg Q6H PRN Administration PAIN LEVEL 7 - 10 Paroxetine HCl 10 mg 02/05/20 10:00 Paxil - PO DAILY UMBERTO Polyethylene Glycol 17 gm 02/04/20 22:10 Miralax (For Daily Use) - PO DAILY PRN CONSTIPATION Sevelamer Carbonate 1,600 mg 02/05/20 08:00 02/05/20 09:39 Renvela - PO 1,600 mg TIDCM UMBERTO Administration Sodium Bicarbonate 1,300 mg 02/05/20 10:00 Sodium Bicarbonate - PO BID UMBERTO ASSESSMENT/PLAN: 40 year old female with ESRD on HD sec to PCKD, Cervical cancer (on CTx, last dose 02/02), DM 1, Bipolar Disorder/Depression/Anxiety, Asthma sent to ED from dialysis center due to malfunctioning HD catheter. Last HD session 02/01. 1. ESRD on HD TTS (sec to PCKD) with blocked HD catheter Normal K, Bicarb, euvolemic Vascular Surgery consulted for access for HD Nephrology following. Sodium Bicarb pills held as per Nephrology. Continue Sevelemer. 2. Diarrhea, likely sec to CTx Afebrile. On Docusate and Miralax - will Stop. If any further episodes, will send stool for Cx and Cdiff 3. Anemia - likely multifactorial, ESRD vs CTx. Normocytic - Ferritin 469, Iron sat 18%, will send B12/Folate levels. No evidence of acute blood loss. 4. Thrombocytopenia - likely due to CTx. Will monitor. 5. DM 1 - Maintain on Levemir and Novolog sliding scale. 6. HTN - Continue Losartan 7. Cervical Ca, Stage IIIB Actively undergoing CTx, last session 02/01 Hem/Onc consulted for ongoing oncology care. 8. Bipolar Disorder/Depression/Anxiety - Continue Paroxetine. 9. Asthma - Stable - Albuterol PRN DVT Px - SCDs. Heparin held due to Thrombocytopenia. Visit type - Emergency Visit Emergency Visit: Yes ED Registration Date: 02/04/20 Care time: The patient presented to the Emergency Department on the above date and was hospitalized for further evaluation of their emergent condition. - New Patient This patient is new to me today: Yes Date on this admission: 02/06/20 - Critical Care Critical Care patient: No - Discharge Referral Referred to [facility] No
[2020-02-05] MEDS: PARoxetine HCL 10 MG TABLET PO SCH (10:44)
[2020-02-05] MEDS: LOSARTAN POTASSIUM 50 MG TABLET (FP) PO SCH (10:45)
[2020-02-05] MEDS ORDERED: ALBUTEROL SO4 0.083% IH SOL 2.5 MG/3 ML VIAL.NEB. NEB PRN (10:48)
[2020-02-05] MEDS ORDERED: SODIUM CHLORIDE 250 ML IV PRN (11:33)
--- NOTE | 2020-02-05 11:33 | PN ---
Progress Note, Physician History of Present Illness: Pt seen and examined at bedside. She is awake and alert. She denies shortness of breath. - Current Medication List Current Medications: Active Medications Albuterol Sulfate (Ventolin 0.083% Nebulizer Soln -) 1 amp NEB Q6H PRN PRN Reason: SHORT OF BREATH/WHEEZING Insulin Aspart (Novolog Vial Sliding Scale -) 0 vial SQ TIDAC [facility]; Protocol Last Admin: 02/05/20 08:40 Dose: 2 units Documented by: Insulin Detemir (Levemir Vial) 15 units SQ [facility] Losartan Potassium (Cozaar -) 50 mg PO DAILY [facility] Last Admin: 02/05/20 10:45 Dose: 50 mg Documented by: Oxycodone HCl (Roxicodone -) 5 mg PO Q6H PRN PRN Reason: PAIN LEVEL 7 - 10 Last Admin: 02/05/20 01:39 Dose: 5 mg Documented by: Paroxetine HCl (Paxil -) 10 mg PO DAILY [facility] Last Admin: 02/05/20 10:44 Dose: 10 mg Documented by: Sevelamer Carbonate (Renvela -) 1,600 mg PO TIDCM [facility] Last Admin: 02/05/20 09:39 Dose: 1,600 mg Documented by: Sodium Bicarbonate (Sodium Bicarbonate -) 1,300 mg PO BID [facility] Last Admin: 02/05/20 10:44 Dose: 1,300 mg Documented by: - Objective Vital Signs: Vital Signs Temperature 98.3 F 02/05/20 09:52 Pulse Rate 78 02/05/20 09:52 Respiratory Rate 20 02/05/20 09:52 Blood Pressure 144/60 02/05/20 09:52 O2 Sat by Pulse Oximetry (%) 100 02/05/20 09:52 Constitutional: Yes: Calm Eyes: Yes: Conjunctiva Clear HENT: Yes: Atraumatic Neck: Yes: Supple Respiratory: Yes: CTA Bilaterally Gastrointestinal: Yes: Soft Genitourinary: Yes: WNL Musculoskeletal: Yes: WNL Edema: No Neurological: Yes: Oriented Psychiatric: Yes: Oriented Labs: CBC, BMP 02/04/20 16:00 02/04/20 16:00 Problem List - Problems (1) ESRD (end stage renal disease) Code(s): N18.6 - END STAGE RENAL DISEASE (2) ESRD on hemodialysis Code(s): N18.6 - END STAGE RENAL DISEASE; Z99.2 - DEPENDENCE ON RENAL DIALYSIS (3) Hemodialysis catheter malfunction Code(s): T82.41XA - BREAKDOWN (MECHANICAL) OF VASCULAR DIALYSIS CATHETER, INIT (4) Uterine cancer Code(s): C55 - MALIGNANT NEOPLASM OF UTERUS, PART UNSPECIFIED (5) PCK (polycystic kidney disease) Code(s): Q61.3 - POLYCYSTIC KIDNEY, UNSPECIFIED Assessment/Plan Current Medications Generic Name Dose Route Start Last Admin Trade Name Freq PRN Reason Stop Dose Admin Albuterol Sulfate 1 amp 02/05/20 10:48 Ventolin 0.083% Nebulizer Soln - NEB Q6H PRN SHORT OF BREATH/WHEEZING Insulin Aspart 0 vial 02/04/20 23:00 02/05/20 08:40 Novolog Vial Sliding Scale - SQ 2 units TIDAC UMBERTO Administration Protocol Insulin Detemir 15 units 02/05/20 22:00 Levemir Vial SQ HS UMBERTO Losartan Potassium 50 mg 02/05/20 10:00 02/05/20 10:45 Cozaar - PO 50 mg DAILY UMBERTO Administration Oxycodone HCl 5 mg 02/04/20 20:45 02/05/20 01:39 Roxicodone - PO 5 mg Q6H PRN Administration PAIN LEVEL 7 - 10 Paroxetine HCl 10 mg 02/05/20 10:00 02/05/20 10:44 Paxil - PO 10 mg DAILY UMBERTO Administration Sevelamer Carbonate 1,600 mg 02/05/20 08:00 02/05/20 09:39 Renvela - PO 1,600 mg TIDCM UMBERTO Administration Sodium Bicarbonate 1,300 mg 02/05/20 10:00 02/05/20 10:44 Sodium Bicarbonate - PO 1,300 mg BID UMBERTO Administration Impression 1. ESRD 2. Chronic anemia 3. cervical cancer 4. Metabolic acidosis 5. DM 6. polycystic kidney disease 7. hd catheter malfunction Plan - repeat labs in am - check coags before OR - spoke to vascular, NPO past midnight - can stop sodium bicarb pills - renal diet
[2020-02-05 16:53] VITALS: BMI 37.9
--- NOTE | 2020-02-05 21:56 | PN ---
Progress Note (short form) - Note Progress Note: Patient well known to oncology. Recently diagnosed cervical cancer, with recent history summarized below, as per notes Dr Dolan., 39 y/o patient presenting with abnormal vaginal discharge for 5 months and 1month of RLQ and suprapubic pain. She was admitted with acute renal faiure CT a/p 12/20/19 --mild rt. hydroureteonephrosis, mildly enlarged, nonspecific eft periaortic retroperitoneal node, splenomegaly, polycystic kidneys, abdominal wall hernia Endocervical curettings positive for moderately differentiated invasive squamous cell cancer S/p cystoscopy and retrograde pyelogram and rt. JJ ureteral stent --- bullous edema of trigone and extrinsic compression of the bladder EUA on 12/21 -- 6cm cervical mass. No vaginal involvement. Rt. Parametrial involvement with fixation of rt. Pelvic side wall. Lt. Parametrial thickening Patient started on HD on 12/28/19 PET-CT 01/09/20-- Hypermetabolic uterine mass with central necrosis consistent with the provided history of malignancy. Mildly hypermetabolic left external iliac lymph node suggestive of metastasis. Mildly hypermetabolic aortocaval lymph node suggestive of metastasis. Double-J right ureteral stent. Mild to moderate pericardial effusion. Trace bilateral pleural effusion. Carboplatin AUC 2 started 01/17. Referred to ER from dialysis due to malfunction of dialysis catheter. Patient without complaints at this time. Reports no adverse effects attributable to ongoing chemoradiation. Next weekly chemotherapy on 02/09. Dr Bills from radiation oncology to be informed that patient admitted. Awaiting management vascular surgery.
[2020-02-05] MEDS ORDERED: INSULIN (LEVEMIR) 100 UNITS/ML UNITS SQ SCH (22:00)
[2020-02-06] MEDS: INSULIN SLIDING SCALE (NOVOLOG) 1 VIAL SQ SCH ×3 (06:01→18:03)
[2020-02-06 07:48] LABS: BASO % 0.3 % (0-2.0); EOS % 0.4 % (0-4.5); HEMATOCRIT 30.2 % (32.4-45.2); HEMOGLOBIN 9.5 GM/dL (10.7-15.3); LYMPH % 4.2 % (8-40); MCH 27.9 pg (25.7-33.7); MCHC 31.6 g/dl (32.0-36.0); MEAN CELL VOLUME 88.4 fl (80-96); MEAN PLT VOLUME 8.4 fl (7.5-11.1); MONO % 4.7 % (3.8-10.2); NEUT % 90.4 % (42.8-82.8); PLATELET COUNT 75 K/MM3 (134-434); RBC 3.42 M/mm3 (3.60-5.2); RDW 16.8 % (11.6-15.6); WHITE BLOOD COUNT 13.3 K/mm3 (4.0-10.0)
[2020-02-06 08:21] LABS: INR 0.88 (0.83-1.09); PROTHROMBIN TIME (PATIENT) 10.4 SEC (9.7-13.0)
[2020-02-06 08:24] LABS: ACTIVATED PTT 19.8 SECONDS (25.2-36.5)
[2020-02-06 09:13] LABS: ALBUMIN 1.9 g/dl (3.4-5.0); BILIRUBIN,TOTAL 0.7 mg/dL (0.2-1); BLOOD UREA NITROGEN 41.5 mg/dL (7-18); CALCIUM 7.4 mg/dL (8.5-10.1); CREATININE 4.4 mg/dL (0.55-1.3); TOT PROT 5.6 g/dl (6.4-8.2)
[2020-02-06] MEDS: LOSARTAN POTASSIUM 50 MG TABLET (FP) PO SCH (10:38)
[2020-02-06] MEDS: PARoxetine HCL 10 MG TABLET PO SCH (10:38)
[2020-02-06] MEDS: SEVELAMER CARBONATE 800 MG TAB (FP) PO SCH ×3 (10:39→18:03)
--- NOTE | 2020-02-06 11:02 | EKG ---
Test Reason : Blood Pressure : / mmHG Vent. Rate : 079 BPM Atrial Rate : 079 BPM P-R Int : 176 ms QRS Dur : 088 ms QT Int : 398 ms P-R-T Axes : 049 -13 025 degrees QTc Int : 456 ms NORMAL SINUS RHYTHM NORMAL ECG WHEN COMPARED WITH ECG OF 20-DEC-2019 14:54, T WAVE INVERSION NO LONGER EVIDENT IN LATERAL LEADS Confirmed by RD NAVA MD ([id number]) on 02/06/2020 11:02:18 AM Referred By: Confirmed By:RD NAVA MD
--- NOTE | 2020-02-06 11:56 | PN ---
Progress Note, Physician Chief Complaint: Nonfunctioning dialysis catheter History of Present Illness: Seen and examined at the bedside awake and alert offers no acute complaints denies any sob, cp, fever, chills, N/V/D no leg swelling - Current Medication List Current Medications: Active Medications Albuterol Sulfate (Ventolin 0.083% Nebulizer Soln -) 1 amp NEB Q6H PRN PRN Reason: SHORT OF BREATH/WHEEZING Sodium Chloride (Normal Saline -) 250 mls @ 3,000 mls/hr IV PRN PRN PRN Reason: Hypotension during Dialysis Stop: 02/06/20 11:33 Insulin Aspart (Novolog Vial Sliding Scale -) 0 vial SQ TIDAC [facility]; Protocol Last Admin: 02/06/20 11:30 Dose: Not Given Documented by: Insulin Detemir (Levemir Vial) 15 units SQ HS [facility] Last Admin: 02/05/20 22:03 Dose: 15 units Documented by: Losartan Potassium (Cozaar -) 50 mg PO DAILY [facility] Last Admin: 02/06/20 10:38 Dose: 50 mg Documented by: Oxycodone HCl (Roxicodone -) 5 mg PO Q6H PRN PRN Reason: PAIN LEVEL 7 - 10 Last Admin: 02/05/20 01:39 Dose: 5 mg Documented by: Paroxetine HCl (Paxil -) 10 mg PO DAILY [facility] Last Admin: 02/06/20 10:38 Dose: 10 mg Documented by: Sevelamer Carbonate (Renvela -) 1,600 mg PO TIDCM [facility] Last Admin: 02/06/20 11:30 Dose: Not Given Documented by: - Objective Vital Signs: Vital Signs Temperature 99 F 02/06/20 05:00 Pulse Rate 90 02/06/20 05:00 Respiratory Rate 18 02/06/20 05:00 Blood Pressure 143/84 02/06/20 05:00 O2 Sat by Pulse Oximetry (%) 99 02/06/20 05:00 Constitutional: Yes: No Distress, Calm HENT: Yes: Atraumatic Neck: Yes: Supple Cardiovascular: Yes: Regular Rate and Rhythm Respiratory: Yes: Regular Gastrointestinal: Yes: Normal Bowel Sounds, Soft Extremities: No: Cyanosis Edema: No Neurological: Yes: Alert Labs: CBC, BMP 02/06/20 07:11 02/06/20 07:11 INR, PTT INR 0.88 (0.83-1.09) 02/06/20 07:11 Assessment/Plan 40 year old female with pmhx of bipolar, depression, anxiety, ashtma. ADPKD, ESRD, HPV and cervical cancer on chemo who presents to the ER after her permacath was not working in HD. 1. Nonfunctioning HD catheter 2. ESRD on HD 3. Cervical Ca on chemo + radiation 4. Depression/Bipolar disorder For catheter exchange later today [facility] Dr. Hall. Arranged for dialysis after the exchange fo the catheter. If catheter functions well w/o complications can anticipate discharge home following dialysis. Can resume outpatient dialysis on at [facility]. Brian Dahl DO
--- NOTE | 2020-02-06 14:41 | PN ---
Teaching Attending Note Name of Resident: Tom Yung ATTENDING PHYSICIAN STATEMENT I saw and evaluated the patient. I reviewed the resident's note and discussed the case with the resident. I agree with the resident's findings and plan as documented. SUBJECTIVE: Feeling well, no complaints. Mild chronic Lower abdominal/pelvic discomfort. Diarrhea resolved. No PV bleeding. No fever/chills/nausea/vomiting. OBJECTIVE: Afebrile, Hemodynamically stable. Last Vital Signs Temp Pulse Resp BP Pulse Ox 99 F 90 18 143/84 99 02/06/20 05:00 02/06/20 05:00 02/06/20 05:00 02/06/20 05:00 02/06/20 05:00 HEENT - Atraumatic, Normocephalic. Heart - S1, S2, RRR Lungs - clear to auscultation Abdomen - Soft, non-tender. Bowel Sounds normal Extremities - no edema, no calf tenderness. Neuro - AAO x 3. Tone/Power normal. Laboratory Results - last 24 hr 02/05/20 02/05/20 02/05/20 16:56 18:30 22:00 WBC RBC Hgb Hct MCV MCH MCHC RDW Plt Count MPV Absolute Neuts (auto) Neutrophils % Lymphocytes % Monocytes % Eosinophils % Basophils % Nucleated RBC % PT with INR INR PTT (Actin FS) Sodium Potassium Chloride Carbon Dioxide Anion Gap BUN Creatinine Est GFR (CKD-EPI)AfAm Est GFR (CKD-EPI)NonAf POC Glucometer 159 166 Random Glucose Calcium Total Bilirubin AST ALT Alkaline Phosphatase Total Protein Albumin Vitamin B12 Serum Folate Stool Occult Blood Negative 02/06/20 02/06/20 02/06/20 05:59 07:11 07:11 WBC 13.3 H RBC 3.42 L Hgb 9.5 L Hct 30.2 L MCV 88.4 MCH 27.9 MCHC 31.6 L RDW 16.8 H Plt Count 75 L MPV 8.4 Absolute Neuts (auto) 12.0 H Neutrophils % 90.4 H Lymphocytes % 4.2 L Monocytes % 4.7 Eosinophils % 0.4 D Basophils % 0.3 Nucleated RBC % 0 PT with INR INR PTT (Actin FS) Sodium 137 Potassium 4.0 Chloride 106 Carbon Dioxide 20 L Anion Gap 11 BUN 41.5 H Creatinine 4.4 H Est GFR (CKD-EPI)AfAm 13.70 Est GFR (CKD-EPI)NonAf 11.82 POC Glucometer 128 Random Glucose 107 H Calcium 7.4 L Total Bilirubin 0.7 AST 13 L ALT 13 Alkaline Phosphatase 100 Total Protein 5.6 L Albumin 1.9 L Vitamin B12 423 Serum Folate 4 Stool Occult Blood 02/06/20 02/06/20 07:11 11:29 WBC RBC Hgb Hct MCV MCH MCHC RDW Plt Count MPV Absolute Neuts (auto) Neutrophils % Lymphocytes % Monocytes % Eosinophils % Basophils % Nucleated RBC % PT with INR 10.40 INR 0.88 PTT (Actin FS) 19.8 L Sodium Potassium Chloride Carbon Dioxide Anion Gap BUN Creatinine Est GFR (CKD-EPI)AfAm Est GFR (CKD-EPI)NonAf POC Glucometer 85 Random Glucose Calcium Total Bilirubin AST ALT Alkaline Phosphatase Total Protein Albumin Vitamin B12 Serum Folate Stool Occult Blood Current Medications Generic Name Dose Route Start Last Admin Trade Name Freq PRN Reason Stop Dose Admin Albuterol Sulfate 1 amp 02/05/20 10:48 Ventolin 0.083% Nebulizer Soln - NEB Q6H PRN SHORT OF BREATH/WHEEZING Sodium Chloride 250 mls @ 3,000 mls/hr 02/05/20 11:33 Normal Saline - IV 02/06/20 11:33 PRN PRN Hypotension during Dialysis Insulin Aspart 0 vial 02/04/20 23:00 02/06/20 11:30 Novolog Vial Sliding Scale - SQ Not Given TIDAC [facility] Protocol Insulin Detemir 15 units 02/05/20 22:00 02/05/20 22:03 Levemir Vial SQ 15 units HS UMBERTO Administration Losartan Potassium 50 mg 02/05/20 10:00 02/06/20 10:38 Cozaar - PO 50 mg DAILY UMBERTO Administration Oxycodone HCl 5 mg 02/04/20 20:45 02/05/20 01:39 Roxicodone - PO 5 mg Q6H PRN Administration PAIN LEVEL 7 - 10 Paroxetine HCl 10 mg 02/05/20 10:00 02/06/20 10:38 Paxil - PO 10 mg DAILY UMBERTO Administration Sevelamer Carbonate 1,600 mg 02/05/20 08:00 02/06/20 11:30 Renvela - PO Not Given TIDCM [facility] Home Medications Medication Instructions Recorded Albuterol 0.083% Nebulizer Sarina 1 neb NEB Q6H PRN 10/06/17 [Ventolin 0.083% Nebulizer Soln -] Budesonide/Formeterol Fumarate 2 puff IH BID 10/06/17 [SYMBICORT 80/4.5mcg -] Insulin Glargine,Hum.rec.anlog 50 unit SQ BID 10/06/17 [Lantus] Insulin Lispro [Humalog] 30 unit SQ TID 04/18/18 Esomeprazole Magnesium [Nexium 40 mg PO DAILY 05/28/18 24Hr] Gabapentin [Neurontin] 600 mg PO TID 10/09/19 Sevelamer Carbonate [Renvela -] 800 mg PO TIDCM #90 tab 10/12/19 Paroxetine HCl [Paxil -] 10 mg PO DAILY 11/18/19 Docusate Sodium [Colace -] 100 mg PO TID capsule 11/23/19 Sodium Bicarbonate - 1,300 mg PO BID tablet 11/23/19 Polyethylene Glycol 3350 [Miralax 17 gm PO DAILY PRN #1 bottle 12/28/19 119 gm Btl -] Acetaminophen [Tylenol -] 2 tab PO PRN 01/16/20 Oxycodone HCl [Roxicodone] 5 mg PO ASDIR 02/03/20 Ferrous Sulfate [Feosol] 325 mg PO DAILY 02/06/20 Losartan Potassium 50 mg PO DAILY 02/06/20 Montelukast Sodium [Singulair] 10 mg PO DAILY 02/06/20 ASSESSMENT/PLAN: 40 year old female with ESRD on HD sec to PCKD, Cervical cancer (on CTx, last dose 02/02), DM 1, Bipolar Disorder/Depression/Anxiety, Asthma sent to ED from dialysis center due to malfunctioning HD catheter. Last HD session 02/01. 1. ESRD on HD TTS (sec to PCKD) with blocked HD catheter Normal K/ Bicarb, euvolemic Vascular Surgery consulted for catheter exchange - scheduled today by Dr. Hall. Nephrology following. Sodium Bicarb pills held as per Nephrology. Continue Sevelemer. 2. Diarrhea, likely sec to CTx/Laxatives Afebrile. On Docusate and Miralax - stopped Stool Cdiff negative. 3. Anemia - likely multifactorial, ESRD vs CTx. Normocytic - Ferritin 469, Iron sat 18%, will send B12 level 423/Folate 4 - will supplement Folate No evidence of acute blood loss. 4. Thrombocytopenia - likely due to CTx. Will monitor. 5. DM 1 - Resume Lantus/Lispro on discharge. 6. HTN - Continue Losartan 7. Cervical Ca, Stage IIIB Actively undergoing CTx, last session 02/01 Hem/Onc consulted for ongoing oncology care. 8. Bipolar Disorder/Depression/Anxiety - Continue Paroxetine. 9. Asthma - Stable - Albuterol PRN DVT Px - SCDs. Heparin held due to Thrombocytopenia. Medically Stable for discharge after HD catheter exchange and after HD this afternoon.
--- NOTE | 2020-02-06 17:00 | DS ---
Physical Exam: SUBJECTIVE: Patient seen and examined. Chronic lower abdominal pain. Denies fever, chills, fatigue, SOB, n/v, d/c. OBJECTIVE: Vital Signs Period Temp Pulse Resp BP Sys/Farah Pulse Ox Last 24 Hr 98.1 F-99 F 85-90 18-20 130-144/56-84 98-100 PHYSICAL EXAM GENERAL: The patient is awake, alert, and fully oriented, in no acute distress. HEAD: Normal with no signs of trauma. EYES: PERRL, extraocular movements intact, sclera anicteric, conjunctiva clear. ENT: Ears normal, nares patent, oropharynx clear without exudates, moist mucous membranes. NECK: Trachea midline, full range of motion, supple. LUNGS: Breath sounds equal, clear to auscultation bilaterally, no wheezes, no crackles, no accessory muscle use. HEART: Regular rate and rhythm, S1, S2 without murmur, rub or gallop. ABDOMEN: Soft, tender, nondistended, normoactive bowel sounds, no guarding, no rebound, no hepatosplenomegaly, no masses. EXTREMITIES: 2+ pulses, warm, well-perfused, no edema. NEUROLOGICAL: Cranial nerves II through XII grossly intact. Normal speech, gait not observed. Numbness on bottom of feet chronic. PSYCH: Normal mood, normal affect. SKIN: Warm, dry, normal turgor, no rashes or lesions noted. LABS Laboratory Results - last 24 hr 02/05/20 02/05/20 02/05/20 16:56 18:30 22:00 WBC RBC Hgb Hct MCV MCH MCHC RDW Plt Count MPV Absolute Neuts (auto) Neutrophils % Lymphocytes % Monocytes % Eosinophils % Basophils % Nucleated RBC % PT with INR INR PTT (Actin FS) Sodium Potassium Chloride Carbon Dioxide Anion Gap BUN Creatinine Est GFR (CKD-EPI)AfAm Est GFR (CKD-EPI)NonAf POC Glucometer 159 166 Random Glucose Calcium Total Bilirubin AST ALT Alkaline Phosphatase Total Protein Albumin Vitamin B12 Serum Folate Stool Occult Blood Negative 02/06/20 02/06/20 02/06/20 05:59 07:11 07:11 WBC 13.3 H RBC 3.42 L Hgb 9.5 L Hct 30.2 L MCV 88.4 MCH 27.9 MCHC 31.6 L RDW 16.8 H Plt Count 75 L MPV 8.4 Absolute Neuts (auto) 12.0 H Neutrophils % 90.4 H Lymphocytes % 4.2 L Monocytes % 4.7 Eosinophils % 0.4 D Basophils % 0.3 Nucleated RBC % 0 PT with INR INR PTT (Actin FS) Sodium 137 Potassium 4.0 Chloride 106 Carbon Dioxide 20 L Anion Gap 11 BUN 41.5 H Creatinine 4.4 H Est GFR (CKD-EPI)AfAm 13.70 Est GFR (CKD-EPI)NonAf 11.82 POC Glucometer 128 Random Glucose 107 H Calcium 7.4 L Total Bilirubin 0.7 AST 13 L ALT 13 Alkaline Phosphatase 100 Total Protein 5.6 L Albumin 1.9 L Vitamin B12 423 Serum Folate 4 Stool Occult Blood 02/06/20 02/06/20 02/06/20 07:11 11:29 16:28 WBC RBC Hgb Hct MCV MCH MCHC RDW Plt Count MPV Absolute Neuts (auto) Neutrophils % Lymphocytes % Monocytes % Eosinophils % Basophils % Nucleated RBC % PT with INR 10.40 INR 0.88 PTT (Actin FS) 19.8 L Sodium Potassium Chloride Carbon Dioxide Anion Gap BUN Creatinine Est GFR (CKD-EPI)AfAm Est GFR (CKD-EPI)NonAf POC Glucometer 85 72 Random Glucose Calcium Total Bilirubin AST ALT Alkaline Phosphatase Total Protein Albumin Vitamin B12 Serum Folate Stool Occult Blood HOSPITAL COURSE: Date of Admission:02/04/20 Date of Discharge: 02/06/20 Minutes to complete discharge: 36 Discharge Summary Problems reviewed: Yes Reason For Visit: CLOTTED DIALYSIS ACCESS Current Active Problems Clotted dialysis access (Acute) ESRD (end stage renal disease) (Acute) ESRD on hemodialysis (Acute) Hemodialysis catheter malfunction (Acute) Condition: Stable - Instructions Diet, Activity, Other Instructions: You came to the hospital from the dialysis centre because you were unable to receive dialysis through your permacatheter. You were seen by the vascular surgeon who unclogged the permacatheter. You then received dialysis successfully through the permatcathter.. You also stated you were having multiple episodes of diarrhea everyday, and you were found not to have an infection. Your laxatives were stopped. You were complaining of pain in your calves and swelling, so we got an ultrasound to see if there was a blood clot. We found that there was no blood clot. Please continue your dialysis through your permacath as scheduled on Thursday, and Thursday at [facility]. Please resume your chemotherapy as scheduled on 02/10/2020. Please START taking Folic Acid 1mg once daily. Please STOP taking your laxatives, Colace and Senna. Please STOP taking your sodium bicarbonate. Please resume all other home medications as prescribed. Please follow up with your primary care physician, Laxmi Read NP, within 1 week to follow up on your overall health maintenance. Please follow up with your oncologist, Dr. Perla, within 1 week to follow up on your cervical cancer. Please follow up with your vascular surgeon, Dr. Hall, in 1 week. Please follow up with your advisory intern, Dr. Lambert, in 1 week. If you have any new, returning or worsening symptoms, please return to the ED or call 911. Referrals: Laxmi Read NP [Primary Care Provider] - Kelsi Perla MD [Staff Physician] - Guillermo Hall DO [Staff Physician] - Brian Dahl MD [Staff Physician] - Disposition: HOME - Home Medications Comprehensive Discharge Medication List: Ambulatory Orders Albuterol 0.083% Nebulizer Sarina [Ventolin 0.083% Nebulizer Soln -] 1 neb NEB Q6H PRN 10/06/17 Budesonide/Formeterol Fumarate [SYMBICORT 80/4.5mcg -] 2 puff IH BID 10/06/17 Insulin Glargine,Hum.rec.anlog [Lantus] 50 unit SQ BID 10/06/17 Insulin Lispro [Humalog] 30 unit SQ TID 04/18/18 Esomeprazole Magnesium [Nexium 24Hr] 40 mg PO DAILY 05/28/18 Gabapentin [Neurontin] 600 mg PO TID 10/09/19 Sevelamer Carbonate [Renvela -] 800 mg PO TIDCM #90 tab 10/12/19 Paroxetine HCl [Paxil -] 10 mg PO DAILY 11/18/19 Acetaminophen [Tylenol .Extra-Strength -] 2 tab PO PRN 01/16/20 Oxycodone HCl [Roxicodone] 5 mg PO ASDIR 02/03/20 Ferrous Sulfate [Feosol] 325 mg PO DAILY 02/06/20 Folic Acid - 1 mg PO DAILY #30 tablet 02/06/20 Losartan Potassium 50 mg PO DAILY 02/06/20 Montelukast Sodium [Singulair] 10 mg PO DAILY 02/06/20 This patient is new to me today: Yes Date on this admission: 02/12/20 Emergency Visit: No Critical Care patient: No - Discharge Referral [facility]erred [facility] No ATTENDING PHYSICIAN STATEMENT I saw and evaluated the patient. I reviewed the resident's note and discussed the case with the resident. I agree with the resident's findings and plan as documented. SUBJECTIVE: OBJECTIVE: ASSESSMENT AND PLAN:
[2020-02-06] MEDS ORDERED: ROCURONIUM BROMIDE 50 MG/5 ML SYRINGE ONE (17:23)
[2020-02-06] MEDS ORDERED: SUCCINYLCHOLINE CHLORIDE 200 MG/10 ML SYRINGE ONE (17:23)
[2020-02-06] MEDS ORDERED: PROPOFOL 20 ML ONE (17:23)
[2020-02-06] MEDS ORDERED: MIDAZOLAM HCL 2 MG/2 ML SINGLE DOSE VIAL ONE (17:25)
[2020-02-06] MEDS ORDERED: LIDOCAINE HCL 1%, 10 MG/ML (20ML VIAL) ONE (17:27)
[2020-02-06] MEDS ORDERED: HEPARIN NA (PORCINE) 5,000 UNITS/ML 1ML VIAL ONE (17:27)
[2020-02-06] MEDS ORDERED: ceFAZolin SODIUM 1 GM VIAL IVPB ONE (18:25)
[2020-02-06] MEDS ORDERED: LIDOCAINE HCL 1%, 10 MG/ML (20ML VIAL) NR ONE (18:34)
--- NOTE | 2020-02-06 18:46 | PN ---
Progress Note (short form) - Note Progress Note: Will defer dialysis to tomorrow morning as pt was taken to OR late in the day. Brian Dahl DO
--- NOTE | 2020-02-06 18:48 | OP ---
Operative Note - Note: Operative Date: 02/06/20 Pre-Operative Diagnosis: malfunctioning permacath Operation: Permacath exchange Post-Operative Diagnosis: Same as Pre-op Surgeon: Guillermo Hall Anesthesia: MAC Estimated Blood Loss (mls): 10 Operative Report Dictated: Yes
[2020-02-06] MEDS ORDERED: SODIUM CHLORIDE 250 ML IV PRN (19:11)
[2020-02-06] MEDS ORDERED: ALBUTEROL SO4 0.083% IH SOL 2.5 MG/3 ML VIAL.NEB. NEB PRN (19:11)
--- NOTE | 2020-02-06 20:15 | OP ---
DATE OF OPERATION: 02/06/2020 PREOPERATIVE DIAGNOSIS: Malfunctioning PermCath. POSTOPERATIVE DIAGNOSIS: Malfunctioning PermCath. PROCEDURE: PermCath exchange. SURGEON: Guillermo Alva MD. ANESTHESIA: Fractional. BLOOD LOSS: 10 mL. INDICATION: The patient is a 40-year-old female that comes in with a thrombosed, malfunctioning PermCath. It was decided that she would need to have it exchanged. Patient was consented for the procedure understanding all risks, benefits, and alternatives and was taken to the operating room. Patient was found to be COVID negative. Patient was test negative as well. DESCRIPTION OF PROCEDURE: Once patient was brought in the operating room, she was laid on the operating table in a supine manner, and the area of the right neck and chest prepped and draped in a sterile surgical manner. We then went ahead and placed our 0.035 floppy guidewire into the catheter. We then went ahead and dissected the cuff of the catheter and set it free and the old catheter was removed. We then changed our gloves for sterility, and we then took another 22 PermCath and placed it over the guidewire into the vein under fluoroscopy. We then removed our guidewire. We then went ahead and guido back on each port of the catheter, and there was good flow. Heparinized saline was injected and 2000 units of IV heparin were injected in each port. We then took 4-0 Biosyn and 2 simple stitches were placed at the exit site. We then took 3-0 nylon, and the catheter was 4x4s and Tegaderms were placed. The patient tolerated the procedure without complications. Patient was transferred to PACU in stable condition where chest x-ray will be obtained. GUILLERMO ALVA DO NP/[id number]
[2020-02-06] MEDS: GABAPENTIN 300 MG CAPSULE PO SCH (21:15)
[2020-02-06] MEDS ORDERED: GABAPENTIN 300 MG CAPSULE PO SCH (22:00)
[2020-02-06] MEDS ORDERED: INSULIN (LEVEMIR) 100 UNITS/ML UNITS SQ SCH (22:00)
[2020-02-07] MEDS: oxyCODONE HCL 5 MG TABLET PO PRN ×2 (01:02→14:30)
[2020-02-07] MEDS ORDERED: INSULIN (NOVOLOG) ASPART 100 UNITS/ML 10ML VIAL ONE (06:17)
[2020-02-07] MEDS: INSULIN SLIDING SCALE (NOVOLOG) 1 VIAL SQ SCH ×2 (06:22→14:25)
[2020-02-07] MEDS: GABAPENTIN 300 MG CAPSULE PO SCH ×2 (06:22→14:31)
[2020-02-07] MEDS: SEVELAMER CARBONATE 800 MG TAB (FP) PO SCH ×2 (08:21→14:25)
[2020-02-07] MEDS ORDERED: PANTOPRAZOLE 40 MG TABLET PO SCH ×2 (10:00)
[2020-02-07] MEDS ORDERED: FERROUS SO4 325 MG TABLET (FP) PO SCH ×2 (10:00)
[2020-02-07] MEDS ORDERED: PARoxetine HCL 10 MG TABLET PO SCH (10:00)
[2020-02-07] MEDS ORDERED: LOSARTAN POTASSIUM 50 MG TABLET (FP) PO SCH ×2 (10:00)
[2020-02-07] MEDS ORDERED: FOLIC ACID 1 MG TABLET (FP) PO SCH ×2 (10:00)
--- NOTE | 2020-02-07 12:07 | PN ---
Progress Note, Physician Chief Complaint: Nonfunctioning dialysis catheter History of Present Illness: Seen and examined at the bedside currently getting dialysis BP stable, UF 2L catheter working well offers no acute complaints denies any sob, cp, fever, chills, N/V/D no leg swelling - Current Medication List Current Medications: Active Medications Albuterol Sulfate (Ventolin 0.083% Nebulizer Soln -) 1 amp NEB Q6H PRN PRN Reason: SHORT OF BREATH/WHEEZING Ferrous Sulfate (Feosol -) 325 mg PO DAILY [facility] Folic Acid (Folic Acid -) 1 mg PO DAILY [facility] Gabapentin (Neurontin -) 600 mg PO TID [facility] Last Admin: 02/07/20 06:22 Dose: 600 mg Documented by: Sodium Chloride (Normal Saline -) 250 mls @ 3,000 mls/hr IV PRN PRN PRN Reason: Hypotension during Dialysis Insulin Aspart (Novolog Vial Sliding Scale -) 1 vial SQ TIDAC [facility]; Protocol Last Admin: 02/07/20 06:22 Dose: 8 units Documented by: Insulin Detemir (Levemir Vial) 15 units SQ HS [facility] Last Admin: 02/06/20 21:15 Dose: 15 units Documented by: Losartan Potassium (Cozaar -) 50 mg PO DAILY [facility] Oxycodone HCl (Roxicodone -) 5 mg PO Q6H PRN PRN Reason: PAIN LEVEL 7 - 10 Last Admin: 02/07/20 01:02 Dose: 5 mg Documented by: Pantoprazole Sodium (Protonix -) 40 mg PO DAILY [facility] Paroxetine HCl (Paxil -) 10 mg PO DAILY [facility] Sevelamer Carbonate (Renvela -) 1,600 mg PO TIDCM [facility] Last Admin: 02/07/20 08:21 Dose: 1,600 mg Documented by: - Objective Vital Signs: Vital Signs Temperature 97.8 F 02/07/20 08:30 Pulse Rate 86 02/07/20 11:58 Respiratory Rate 18 02/07/20 11:58 Blood Pressure 152/88 02/07/20 11:58 O2 Sat by Pulse Oximetry (%) 100 02/07/20 08:30 Constitutional: Yes: No Distress HENT: Yes: Atraumatic Neck: Yes: Supple Cardiovascular: Yes: Regular Rate and Rhythm Respiratory: Yes: Regular Gastrointestinal: Yes: Soft. No: Tenderness Extremities: No: Cold, Cool, Cyanosis Edema: No Neurological: Yes: Alert Labs: CBC, BMP 02/06/20 07:11 02/06/20 07:11 INR, PTT INR 0.88 (0.83-1.09) 02/06/20 07:11 Assessment/Plan 40 year old female with pmhx of bipolar, depression, anxiety, ashtma. ADPKD, ESRD, HPV and cervical cancer on chemo who presents to the ER after her permacath was not working in HD. 1. Nonfunctioning HD catheter 2. ESRD on HD 3. Cervical Ca on chemo + radiation 4. Depression/Bipolar disorder Tolerating dialysis via tunneled catheter well this am after exchange yesterday evening. Catheter working well and pt can be discharged home [place] today. Can resume outpatient dialysis on at [facility] [place]Note 2[place] [facility] [place]. Brian Dahl DO
--- NOTE | 2020-02-07 14:07 | EKG ---
Test Reason : Blood Pressure : / mmHG Vent. Rate : 082 BPM Atrial Rate : 082 BPM P-R Int : 146 ms QRS Dur : 078 ms QT Int : 356 ms P-R-T Axes : 036 075 035 degrees QTc Int : 415 ms NORMAL SINUS RHYTHM WITH SINUS ARRHYTHMIA NORMAL ECG WHEN COMPARED WITH ECG OF 04-FEB-2020 16:45, QUESTIONABLE CHANGE IN QRS AXIS ST ELEVATION NOW PRESENT IN INFERIOR LEADS Confirmed by Dorian Jj MD ([id number]) on 02/07/2020 2:07:02 PM Referred By: Confirmed By:Dorian Jj MD
[2020-02-07 14:45] VITALS: BP 160/86; PULSE 91; TEMP 98.4
--- NOTE | 2020-02-07 18:25 | PN ---
Teaching Attending Note Name of Resident: Tom Yung ATTENDING PHYSICIAN STATEMENT I saw and evaluated the patient. I reviewed the resident's note and discussed the case with the resident. I agree with the resident's findings and plan as documented. SUBJECTIVE: seen and examined OBJECTIVE: Last Vital Signs Temp Pulse Resp BP Pulse Ox 98.4 F 91 H 18 160/86 100 02/07/20 14:44 02/07/20 14:44 02/07/20 14:44 02/07/20 14:44 02/07/20 14:44 HEENT - Atraumatic, Normocephalic. Heart - S1, S2, RRR Lungs - clear to auscultation Abdomen - Soft, non-tender. Bowel Sounds normal Extremities - no edema, no calf tenderness. Neuro - AAO x 3. Tone/Power normal. CBCD WBC 13.3 K/mm3 (4.0-10.0) H 02/06/20 07:11 RBC 3.42 M/mm3 (3.60-5.2) L 02/06/20 07:11 Hgb 9.5 GM/dL (10.7-15.3) L 02/06/20 07:11 Hct 30.2 % (32.4-45.2) L 02/06/20 07:11 MCV 88.4 fl (80-96) 02/06/20 07:11 MCHC 31.6 g/dl (32.0-36.0) L 02/06/20 07:11 RDW 16.8 % (11.6-15.6) H 02/06/20 07:11 Plt Count 75 K/MM3 (134-434) L 02/06/20 07:11 MPV 8.4 fl (7.5-11.1) 02/06/20 07:11 CMP Sodium 137 mmol/L (136-145) 02/06/20 07:11 Potassium 4.0 mmol/L (3.5-5.1) 02/06/20 07:11 Chloride 106 mmol/L (98-107) 02/06/20 07:11 Carbon Dioxide 20 mmol/L (21-32) L 02/06/20 07:11 Anion Gap 11 MMOL/L (8-16) 02/06/20 07:11 BUN 41.5 mg/dL (7-18) H 02/06/20 07:11 Creatinine 4.4 mg/dL (0.55-1.3) H 02/06/20 07:11 Calcium 7.4 mg/dL (8.5-10.1) L 02/06/20 07:11 Total Bilirubin 0.7 mg/dL (0.2-1) 02/06/20 07:11 AST 13 U/L (15-37) L 02/06/20 07:11 ALT 13 U/L (13-61) 02/06/20 07:11 Alkaline Phosphatase 100 U/L (45-117) 02/06/20 07:11 Total Protein 5.6 g/dl (6.4-8.2) L 02/06/20 07:11 Albumin 1.9 g/dl (3.4-5.0) L 02/06/20 07:11 ASSESSMENT AND PLAN: 40 year old female with ESRD on HD sec to PCKD, Cervical cancer (on CTx, last dose 02/02), DM 1, Bipolar Disorder/Depression/Anxiety, Asthma sent to ED from dialysis center due to malfunctioning HD catheter. Last HD session 02/01. 1. ESRD on HD TTS (sec to PCKD) with blocked HD catheter Normal K/ Bicarb, euvolemic Vascular Surgery consulted for catheter exchange - scheduled today by Dr. Hall. Nephrology following. Sodium Bicarb pills held as per Nephrology. Continue Sevelemer. 2. Diarrhea, likely sec to CTx/Laxatives Afebrile. On Docusate and Miralax - stopped Stool Cdiff negative. 3. Anemia - likely multifactorial, ESRD vs CTx. Normocytic - Ferritin 469, Iron sat 18%, will send B12 level 423/Folate 4 - will supplement Folate No evidence of acute blood loss. 4. Thrombocytopenia - likely due to CTx. Will monitor. 5. DM 1 - Resume Lantus/Lispro on discharge. 6. HTN - Continue Losartan 7. Cervical Ca, Stage IIIB Actively undergoing CTx, last session 02/01 Hem/Onc consulted for ongoing oncology care. 8. Bipolar Disorder/Depression/Anxiety - Continue Paroxetine. 9. Asthma - Stable - Albuterol PRN DVT Px - SCDs. Heparin held due to Thrombocytopenia. .
--- NOTE | 2020-02-09 12:37 | PATH ---
Surgical Pathology Report Patient Name: JOSÉ SCHULER Med. Rec. #: [id number] /Age/Gender: 1980 (Age: 40) / F Account: [id number] Location: [facility] MED/SURG Taken: 02/06/2020 Received: 02/07/2020 Reported: 02/09/2020 Physicians: Guillermo Parikh MD Specimen(s) Received PERMACATH Clinical History Clotted dialysis access Final Diagnosis PERMACATH, EXCHANGE: CATHETER (PERMACATH). MACROSCOPIC DIAGNOSIS. Electronically Signed Farzana Santana M.D. Gross Description Received fresh labeled " permacath" is a double lumen catheter, attached tubing measuring 39 cm in length, and inscription "reliance XK". No soft tissue identified, for gross examination only. MLSZ/02/07/2020 sanml/02/07/2020
== END 2020-02-07 15:43 | disposition home or self-care (01) | DRG 466 ==
LOC: JER 13:53 → JERBED 18:08 → J7W 02-05 16:32
PROVIDERS: ADMIT Internal Medicine; ATTEND Student in an Organized Health Care Education/Training Program
PROC: 3E033GC Introduction of Other Therapeutic Substance into Peripheral Vein, Percutaneous Approach (ICD-10-PCS; 2020-02-06)
PROC: 5A1D70Z Performance of Urinary Filtration, Intermittent, Less than 6 Hours Per Day (ICD-10-PCS; 2020-02-06)
PROC: 0J2SXYZ Change Other Device in Head and Neck Subcutaneous Tissue and Fascia, External Approach (ICD-10-PCS; principal; 2020-02-06 14:00)
DX: T82.49XA Other complication of vascular dialysis catheter, initial encounter (principal); C55 Malignant neoplasm of uterus, part unspecified; D63.1 Anemia in chronic kidney disease; D64.81 Anemia due to antineoplastic chemotherapy; F31.9 Bipolar disorder, unspecified; E88.09 Other disorders of plasma-protein metabolism, not elsewhere classified; K52.1 Toxic gastroenteritis and colitis; N18.6 End stage renal disease; D69.6 Thrombocytopenia, unspecified; I12.0 Hypertensive chronic kidney disease with stage 5 chronic kidney disease or end stage renal disease; E46 Unspecified protein-calorie malnutrition; E11.65 Type 2 diabetes mellitus with hyperglycemia; E11.22 Type 2 diabetes mellitus with diabetic chronic kidney disease; Z99.2 Dependence on renal dialysis; Q61.3 Polycystic kidney, unspecified; E87.2 Acidosis; F41.8 Other specified anxiety disorders; J45.909 Unspecified asthma, uncomplicated; Y83.9 Surgical procedure, unspecified as the cause of abnormal reaction of the patient, or of later complication, without mention of misadventure at the time of the procedure; E66.9 Obesity, unspecified; Z68.37 Body mass index [BMI] 37.0-37.9, adult
CPT/HCPCS: 36415; 71045-TC-FY; 76000-TC-FY; 80053; 82272; 82607; 82746; 82962; 85025; 85610; 85730; 86803; 87045; 87046; 87086; 87186; 87324; 87340; 87449; 88300-TC; 93005; 93010; 93970-TC; 94760; 99285-25; J1644; U0003

== ENCOUNTER 2020-02-10 07:19 | Day surgery (SDC) | payer OTHER ==
--- OUTSIDE RECORDS SUMMARY | 2020-02-10 07:30 | XMS ---
:1980 Author Organization [facility] Care Team Providers Name Role Phone CCC, SW9 Unavailable Unavailable Re-disclosure Warning The records that you are about to access may contain information from federally- assisted alcohol or drug abuse programs. If such information is present, then the following federally mandated warning applies: This information has been disclosed to you from records protected by federal confidentiality rules (42 CFR part 2). The federal rules prohibit you from making any further disclosure of this information unless further disclosure is expressly permitted by the written consent of the person to whom it pertains or as otherwise permitted by 42 CFR part 2. A general authorization for the release of medical or other information is NOT sufficient for this purpose. The Federal rules restrict any use of the information to criminally investigate or prosecute any alcohol or drug abuse patient.The records that you are about to access may contain highly sensitive health information, the redisclosure of which is protected by Article 27-F of the [place] State Public Health law. If you continue you may haveaccess to information: Regarding HIV / AIDS; Provided by facilities licensed or operated by the [facility] Office of Mental Health; or Provided by the [facility] Office for People With Developmental Disabilities. If such information is present, then the following [facility] mandated warning applies: This information has been disclosed to you from confidential records which are protected by state law. State law prohibits you from making any further disclosure of this information without the specific written consent of the person to whom it pertains, or as otherwise permitted by law. Any unauthorized further disclosure in violation of state law may result in a fine or mcc sentence or both. A general authorization for the release of medical or other information is NOT sufficient authorization for further disclosure. Allergies and Adverse Reactions Type Description Substance Reaction Status Data Source(s ) Drug allergy Augmentin Amoxicillin 500 MG rash Active eCW2 (Polo / Clavulanate 125 [facility] ealth MG Oral Tablet Care) [Augmentin] Food allergy No Known Food No Known Food [facility] Allergies [facility] Drug allergy No Known Drug No Known Drug [facility] Allergies Allergies [facility] Drug allergy Augmentin Amoxicillin / rash Active eCW3 ([facility] Clavulanate [facility]) Encounters Encounter Providers Location Date Indications Data Source(s ) Outpatient 01/09/2020 12:46:[address] [facility] PM EDT CERVICAL CA Outpatient Attender: [address] 08/03/2019 04:32:19 PM [facility] ([facility]) Patient admitted. Outpatient Attender: [facility] 08/03/2019 04:32:06 PM [facility] ([facility]) Patient admitted. Outpatient Attender: [address] 08/03/2019 04:31:35 PM [facility] ([facility]) Patient admitted. Outpatient [facility] 10/26/2018 12:00:00 eCW3 ([facility] A28 AM EDT - 10/26/2018 [facility] 12:00:00 AM EDT Care) Emergency H 07/11/2018 02:46:00 [facility] 05/08/2018 12:00:0 0 eCW2 ([facility] AM EST [facility] 05/07/2018 12:00:00 eCW2 ([facility] EST [facility]) [facility] 04/17/2018 12:00: 00 eCW2 ([facility] AM EST [facility]) [facility] 03/23/2018 12:00: 00 eCW2 ([facility] AM EDT [facility] Janeen [place] 02/25/2018 12:00:00 eCW2 ([facility] AM EDT [facility]) Silvia Freemanleopoldo [place] 02/12/2018 12:00: 00 eCW2 ([facility] AM EDT [facility]) Silvia Freemanleopoldo Yu 01/20/2018 12:00: 00 eCW2 ([facility] AM EDT [facility]) Silvia Freemanleopoldo Yu 10/26/2017 12:00: 00 eCW2 ([facility] AM EDT [facility]) Silvia Pachecomonica Yu 10/13/2017 12:00: 00 eCW2 ([facility] AM EDT [facility]) Silvia Pachecomonica Yu 10/09/2017 12:00: 00 eCW2 ([facility] AM EDT [facility]) Silvia Pachecomonica Yu 10/06/2017 12:00: 00 eCW2 ([facility] AM EDT [facility]) Silvia Freemanleopoldo [place] 10/02/2017 12:00: 00 eCW2 ([facility] AM EDT [facility]) Silvia Pachecomonica Yu 08/06/2017 12:00: 00 eCW2 ([facility] AM EDT [facility]) Silvia Pachecomonica [place] 08/04/2017 12:00: 00 eCW2 ([facility] AM EDT [facility]) Silvia Pachecomonica [place] 08/03/2017 12:00: 00 eCW2 ([facility] AM EDT [facility]) Silvia De Pazn[place] Janeen Yu 06/29/2017 12:00: 00 eCW2 ([facility] AM EST [facility]) Silvia Pachecomonica Yu 06/25/2017 12:00: 00 eCW2 ([facility] AM EST [facility]) Silvia Pachecomonica Yu 04/07/2017 12:00: 00 eCW2 ([facility] AM EST [facility]) Silvia Pachecomonica Yu 03/26/2017 12:00: 00 eCW2 ([facility] AM EDT [facility]) Silvia Pachecomonica Yu 12/26/2016 12:00: 00 eCW2 ([facility] AM EDT [facility]) Silvia Pachecomonica Yu 08/20/2016 12:00: 00 eCW2 ([facility] AM EDT [facility]) Siliva DeP aznjayce Pachecomonica Yu 06/10/2016 12:00: 00 eCW2 ([facility] AM EST [facility]) Welches Mundo Pachecomonica Yu 05/21/2016 12:00: 00 eCW2 ([facility] AM EST [facility]) [place] M[place] Workman Janeen Yu 04/23/2016 12:00: 00 eCW2 ([facility] AM EST [facility]) Welches Mundo Pachecomonica Yu 04/09/2016 12:00: 00 eCW2 ([facility] AM EST [facility]) [place] Workman Janeen Yu 03/11/2016 12:00: 00 eCW2 ([facility] AM EDT [facility]) Welches Mundo De P[place] Janeen Yu 02/29/2016 12:00: 00 eCW2 ([facility] AM EDT [facility]) Welches Mundo [place] Janeen Yu 02/28/2016 12:00: 00 eCW2 ([facility] AM EDT [facility]) Silvia De P[place] Janeen Yu 02/06/2016 12:00: 00 eCW2 ([facility] AM EDT [facility]) Silvia Freemanleopoldo Yu 12/26/2015 12:00: 00 eCW2 ([facility] AM EDT [facility]) Silvia Freemanleopoldo [place] 12/26/2015 12:00: 00 eCW2 ([facility] AM EDT [facility]) Silvia Pcahecomonica Yu 12/20/2015 12:00: 00 eCW2 ([facility] AM EDT [facility]) Silvia Freemanleopoldo Yu 12/20/2015 12:00: 00 eCW2 ([facility] AM EDT [facility]) Silvia Pachecomonica Yu 06/08/2015 12:00: 00 eCW2 ([facility] AM EST [facility]) Welches Mundo Pachecomonica Yu 05/10/2015 12:00: 00 eCW2 ([facility] AM EST [facility]) Welches Mundo Pachecomonica Yu 03/22/2015 12:00: 00 eCW2 ([facility] AM EDT [facility]) Welches Mundo Freemanleopoldo Yu 03/14/2015 12:00: 00 eCW2 ([facility] AM EDT [facility]) Silvia Pachecomonica Yu 01/12/2015 12:00: 00 eCW2 ([facility] AM EDT [facility]) Silvia Pachecomonica [place] 12/21/2014 12:00: 00 eCW2 ([facility] AM EDT [facility]) Welches Mundo Pachecomonica [place] 10/03/2014 12:00: 00 eCW2 ([facility] AM EDT [facility]) Welches Mundo [place] Janeen Yu 07/24/2014 12:00: 00 eCW2 ([facility] AM EST [facility]) [facility] 07/21/2014 12:00:00 eCW2 ([facility] AM EST [facility] 06/27/2014 12:00: 00 eCW2 ([facility] AM EST [facility]) [facility] 05/15/2014 12:00: 00 eCW2 ([facility] AM EST [facility]) [facility] 05/13/2014 12:00: 00 eCW2 ([facility] AM EST [facility]) [facility] 05/08/2014 12:00: 00 eCW2 ([facility] AM EST [facility]) [facility] 04/17/2014 12:00: 00 eCW2 ([facility] AM EST [facility]) [facility] 04/14/2014 12:00: 00 eCW2 ([facility] AM EST [facility]) [facility] 04/13/2014 12:0 0:00 eCW2 ([facility] AM EST [facility]) [facility] 04/05/2014 12:0 0:00 eCW2 ([facility] AM EST [facility]) [facility] 03/17/2014 12:00: 00 eCW2 ([facility] AM EDT [facility]) [facility] 03/14/2014 12:00: 00 eCW2 ([facility] AM EDT [facility]) [facility] 01/20/2014 12:00: 00 eCW2 ([facility] AM EDT [facility]) [facility] 01/18/2014 12:0 0:00 eCW2 ([facility] AM EDT [facility]) Silvia Freemanleopoldo Yu 01/05/2014 12:00: 00 eCW2 ([facility] AM EDT [facility]) Silvia Freemanleopoldo Yu 10/25/2013 12:00: 00 eCW2 ([facility] AM EDT [facility]) Silvia Pachecomonica Yu 09/27/2013 12:00: 00 eCW2 ([facility] AM [facility]T [facility]) Welches Mundo Pachecomonica Yu 08/05/2013 12:00: 00 eCW2 ([facility] AM EDT [facility]) Welches Mundo Pachecomonica Yu 07/21/2013 12:00: 00 eCW2 ([facility] AM EST [facility]) Welches Mundo Pachecomonica Yu 07/01/2013 12:00: 00 eCW2 ([facility] AM EST [facility]) Welches Mundo Pachecomonica Yu 06/30/2013 12:00: 00 eCW2 ([facility] AM EST [facility]) Welches Mundo Pachecomonica Yu 06/09/2013 12:00: 00 eCW2 ([facility] AM EST [facility]) Welches Mundo Pachecomonica Yu 05/16/2013 12:00: 00 eCW2 ([facility] AM EST [facility]) Silvia Pachecomonica Yu 02/22/2013 12:00: 00 eCW2 ([facility] AM EDT [facility]) Welches Mundo Pachecomonica Yu 01/03/2013 12:00: 00 eCW2 ([facility] AM EDT [facility]) Silvia Workman Janeen Yu 12/01/2012 12:00: 00 eCW2 ([facility] AM EDT [facility]) Welches Mundo [place] 11/03/2012 12:00: 00 eCW2 ([facility] AM EDT [facility]) Welches Mundo [place] 09/30/2012 12:00: 00 eCW2 ([facility] AM EDT [facility]) Silvia [place] 09/21/2012 12:00: 00 eCW2 ([facility] AM EDT [facility]) Wel[place] M[place] 09/17/2012 12:00: 00 eCW2 ([facility] AM EDT [facility]) Welches Mundo [place] 09/10/2012 12:00: 00 eCW2 ([facility] AM EDT [facility]) Welches Mundo [place] 06/30/2012 12:00: 00 eCW2 ([facility] AM EST [facility]) [facility] Jacinta Freemann [place] 03/04/2012 12:00: 00 eCW2 ([facility] AM EDT [facility]) [facility] Fidel[place] 02/19/2012 12:00:00 eCW2 ([facility] AM EDT [facility]) [facility] 01/16/2012 12:00:00 eCW2 ([facility] AM EDT [facility]) [facility] [place] 01/15/2012 12:00:00 eCW2 ([facility]T [facility] 12/11/2011 12:00:00 eCW2 ([facility] AM EDT [facility]) [facility] Jacinta Freemann [place] 07/15/2011 12:00: 00 eCW2 ([facility] AM EST [facility]) [facility] Jacinta Pachecolyn [place] 07/12/2011 12:00: 00 eCW2 ([facility] AM EST [facility]) [facility] 12/03/2010 12:00:00 eCW2 ([facility] AM EDT [facility]) [facility] 11/19/2010 12:00:00 eCW2 ([facility] AM EDT [facility]) [facility] 11/18/2010 12:00:00 eCW2 ([facility] AM EDT [facility]) [facility] 08/26/2010 12:00:00 eCW2 ([facility] AM EDT [facility]) [facility] 08/23/2010 12:00:00 eCW2 ([facility] AM EDT [facility]) [facility] 07/26/2010 12:00:00 eCW2 ([facility] AM EST [facility]) [facility] 07/25/2010 12:00:00 eCW2 ([facility] AM EST [facility]) [facility] 07/23/2010 12:00:00 eCW2 ([facility] AM EST [facility]) [facility] 05/08/2010 12:00:00 eCW2 ([facility] AM EST [facility]) [facility] 05/07/2010 12:00:00 eCW2 ([facility] AM EST [facility]) [facility] 05/07/2010 12:00:00 eCW2 ([facility] AM EST [facility]) [facility] 04/10/2010 12:00:00 eCW2 ([facility] AM EST [facility]) [facility] 04/03/2010 12:00:00 eCW2 ([facility] AM EST [facility]) [facility] 03/18/2010 12:00:00 eCW2 ([facility] AM EDT [facility]) [facility] 03/07/2010 12:00:00 eCW2 ([facility] AM EDT [facility]) [facility] 03/06/2010 12:00:00 eCW2 ([facility] AM EDT [facility]) [facility] 03/05/2010 12:00:00 eCW2 ([facility] AM EDT [facility]) [facility] 02/28/2010 12:00:00 eCW2 ([facility] AM EDT [facility]) [facility] 02/27/2010 12:00:00 eCW2 ([facility] AM EDT [facility]) [facility] 01/07/2010 12:00:00 eCW2 ([facility] AM EDT [facility]) [facility] 12/13/2009 12:00:00 eCW2 ([facility] AM EDT [facility]) [facility] 09/10/2009 12:00:00 eCW2 ([facility] AM EDT [facility]) [facility] 09/06/2009 12:00:00 eCW2 ([facility] AM EDT [facility]) [facility] 09/05/2009 12:00:00 eCW2 ([facility] AM EDT [facility]) [facility] 06/15/2009 12:00:00 eCW2 ([facility] AM EST [facility]) [facility] 01/26/2009 12:00:00 eCW2 ([facility] 11/22/2008 12:00:00 eCW2 ([facility] AM EDT [facility]) Immunizations Vaccine Date Status Description Data Source(s) New in 2011. IIV4 07/11/2017 completed [facility] 01:18:00 PM EST Center Note that this vaccine 05/04/2016 completed [facility] Medical name has changed. See 03:04:00 PM EST Ce nter also Td (adult). It is not adsorbed. No Known Immunizations completed eCW2 ([facility]) Medications Medication Brand Start Product Dose Route Administrative Pharmacy at Indications Reaction Description Data Name Date Form Instructions Instructions Source(s) Paroxetine Paxil .0 Oral active NET[facility] 10 MG Oral 2020 Table ([facility] 04:00: t er [facility]-Is[facility] [Paxil] 00 AM Community EDT Services) Paroxetine Paxil .0 Oral active [facility] 10 MG Oral 2020 Table ([facility] 04:00: t er Mu-Ism [Paxil] 00 AM Community EDT Services) Naphazoline Naphco 09/07/ active Naphcon -A eCW3 Hydrochlori n-A 2020 0.025-0.3 % ( [place] de 0.25 0.025- 12:00: [facility] MG/ML / 0.3 % 00 AM Health Pheniramine EDT Care) Maleate 3 MG/ML Ophthalmic Solution [Naphcon A] Naphcon-A 0.025-0.3 % Fluticasone Flutic .0 active Flutica sone eCW3 Propionate asone 2019 {spra Propionate ( [facility] 50 MCG/ACT Propio 12:00: y_in_ 50 MCG/AC T [facility] dustin 00 AM each_ Health 50 EDT nostr Care) MCG/AC il} T Azithromyci Azithr 09/01/ active Azithro mycin eCW3 n 250 MG omycin 2020 250 MG ([facility] Oral Tablet 250 MG 12:00: [facility] r 00 AM Health EDT Care) Ondansetron Ondans .0 active Ondanse mayte eCW3 4 MG etron 2020 {tabl 4 MG ([facility] Disintegrat 4 MG 12:00: et_on [facility] ing Oral 00 AM _the_ Health Tablet EDT tongu Care) e_and _allo w_to_ disso lve} Acetic Acid Acetic 5.0 active Acetic Acid eCW3 20 MG/ML Acid 2 2019 {drop 2 % ([facility] Otic % 12:00: s_int [facility] Solution 00 AM o_aff Health Acetic Acid EST ected Care) 2 % _ear} Bacitracin Bacitr .0 active Bacitrac in eCW3 0.5 UNT/MG acin 2020 {appl 500 UNIT/GM ( [place] Topical 500 12:00: icati [facility] Ointment UNIT/G 00 AM on} Health Bacitracin M EST Care) 500 UNIT/GM Paroxetine Paxil .0 Oral active NETS MART 10 MG Oral 2020 Table ([facility] 05:00: t er Mu-Ism [Paxil] 00 AM Community EST Services) Paroxetine Paxil .0 Oral active NETS MART 10 MG Oral 2020 Table ([facility]t 05:00: t er Mu-Ism [Paxil] 00 AM Community EST Services) Acetaminoph Acetam 02/12/ active 1-2 tab lets eCW2 en 500 MG inophe 2018 as needed (Jerson dson Oral Tablet n 500 12:00: [facility] Acetaminoph mg 00 AM Health en 500 mg EDT Care) FreeStyle FreeSt 01/21/ active as direct ed eCW2 Lite Test - yle 2018 ([facility] Lite 12:00: [facility] Test - 00 AM Health EDT Care) Depo UNK 10/26/ active as directed eCW2 Provera 2018 ([facility] Contracepti 12:00: [facility] ve 00 AM Health Injection EDT Care) 150 MG/ML 3 ML Lantus 04/10/ active 30 units eCW2 Insulin SoloSt 2016 ([facility] Glargine ar 100 12:00: [facility] 100 UNT/ML UNIT/M 00 AM Health Pen L EST Care) Injector [Lantus] Lantus SoloStar 100 UNIT/ML Acetaminoph Percoc 08/20/ suspend 1 tabl et as eCW2 en 325 MG / et 2017 ed needed ([place] Oxycodone 5-325 12:00: [facility] Hydrochlori MG 00 AM Health de 5 MG EDT Care) Oral Tablet [Percocet] Percocet 5-325 MG gabapentin Neuron 05/21/ active 1 capsul e eCW2 300 MG Oral tin 2016 ([facility] Capsule 300 MG 12:00: [facility] [Neurontin] 00 AM Health Neurontin EST Care) 300 MG gabapentin Neuron 05/21/ 1.0 active Neuronti n eCW3 600 MG Oral tin 2016 {caps 600 MG ([place] Tablet 600 MG 12:00: ule} [facility] [Neurontin] 00 AM Health Neurontin EST Care) 600 MG Acetaminoph Percoc 04/09/ suspend 1 tabl et as eCW2 en 325 MG / et 2016 ed needed ([place] Oxycodone 5-325 12:00: [facility] Hydrochlori MG 00 AM Health de 5 MG EST Care) Oral Tablet [Percocet] Percocet 5-325 MG Furosemide Lasix 02/28/ suspend 1 tablet eCW2 20 MG Oral 20 MG 2016 ed ([facility] Tablet 12:00: [facility] [Lasix] 00 AM Health Lasix 20 MG EDT Care) Gemfibrozil Lopid 12/25/ suspend 1 table t eCW2 600 MG Oral 600 MG 2016 ed ([place] Tablet 12:00: [facility] [Lopid] 00 AM Health Lopid 600 EDT Care) MG Fluconazole Flucon 12/19/ suspend 1 tabl et eCW2 150 MG Oral azole 2016 ed (Pool Tablet 150 MG 12:00: [facility] 00 AM Health EDT Care) Esomeprazol Nexium 12/19/ active 1 capsu le eCW2 e 40 MG 40 mg 2016 ([facility] Delayed 12:00: [facility] Release 00 AM Health Oral EDT Care) Capsule [Nexium] Nexium 40 mg 200 ACTUAT Ventol 03/22/ 2.0 active Ventolin HFA eCW3 Albuterol in HFA 2015 {puff 108 (90 (Hud son 0.09 108 12:00: s_as_ Base) [facility] MG/ACTUAT (90 00 AM neede MCG/ACT Healt h Metered Base) EDT d} Care) Dose MCG/AC Inhaler T [Ventolin] Ventolin HFA 108 (90 Base) MCG/ACT 200 ACTUAT Ventol 03/22/ active 2 puffs as eCW2 Albuterol in HFA 2015 needed ([place] 0.09 108 12:00: [facility] MG/ACTUAT (90 00 AM Health Metered Base) EDT Care) Dose MCG/AC Inhaler T [Ventolin] Ventolin HFA 108 (90 Base) MCG/ACT Alcohol Alcoho 04/17/ active as directed eCW2 Pads 70 % l Pads 2013 ([facility] 70 % 12:00: [facility] 00 AM Health EST Care) Fluticasone Flutic 06/09/ active 2 puff in eCW2 Propionate asone 2013 each nostril ([facility]o 50 MCG/ACT Propio 12:00: [facility] dustin 00 AM Health EST Care) MCG/AC T Nebulizer UNK 01/14/ active 493.9 eCW2 2011 ([facility] 12:00: [facility] 00 AM Health EDT Care) montelukast Singul 08/23/ active 1 table t in eCW2 10 MG Oral air 10 2010 the evening ([facility] Tablet mg 12:00: [facility] [Singulair] 00 AM Health Singulair EDT Care) 10 mg montelukast Singul 08/23/ 1.0 active Singula ir 10 eCW3 10 MG Oral air 10 2010 {tabl mg ([place] Tablet mg 12:00: et_in [place] [Singulair] 00 AM _the_ Health Singulair EDT eveni Care) 10 mg ng} Albuterol Albute 02/28/ active Albuterol eCW3 0.83 MG/ML rol 2009 Sulfate (2.5 ( [facility] Inhalant Sulfat 12:00: MG/3ML) R[facility] r Solution e (2.5 00 AM 0.083% Health Albuterol MG/3ML EDT Care) Sulfate ) (2.5 0.083% MG/3ML) 0.083% Albuterol Albute 02/28/ active as direct ed eCW2 0.83 MG/ML rol 2009 ([facility] Inhalant Sulfat 12:00: [facility] Solution e (2.5 00 AM Health Albuterol MG/3ML EDT Care) Sulfate ) (2.5 0.083% MG/3ML) 0.083% Alcohol UNK 09/05/ active as directed e CW2 Prep Pads 2009 ([facility] Dx: 250.00 12:00: [facility] 00 AM Health EDT Care) Depo UNK active as directed eCW2 Provera ([facility] Contracepti [facility] ve Health Injection Care) 150 MG/ML Metformin Metfor active 1 tablet eC W2 hydrochlori min with meals (H udson de 1000 MG HCl [facility] Oral Tablet 1000 Health Metformin MG Care) HCl 1000 MG 120 ACTUAT Symbic active 2 puffs eC W2 Budesonide ort (Polo 0.16 160-4. [facility] MG/ACTUAT / 5 Health formoterol MCG/AC Care) fumarate T 0.0045 MG/ACTUAT Metered Dose Inhaler [Symbicort] Symbicort 160-4.5 MCG/ACT Losartan Losart active 1 tablet eCW 2 Potassium an (Polo 50 MG Oral Potass [facility] Tablet ium 50 Health MG Care) 120 ACTUAT Symbic 2.0 active Symbicort eCW3 Budesonide ort {puff 160-4.5 ([place] 0.16 160-4. s} MCG/ACT [facility] MG/ACTUAT / 5 Health formoterol MCG/AC Care) fumarate T 0.0045 MG/ACTUAT Metered Dose Inhaler [Symbicort] Symbicort 160-4.5 MCG/ACT Iron 325 Iron 1.0 active Iron 325 (65 e CW3 (65 Fe) MG 325 {tabl Fe) MG ([place] (65 et} [facility] Fe) MG Health Care) Paroxetine Paxil 1.0 active Paxil 10 MG eCW3 10 MG Oral 10 MG {tabl ([facility]o Tablet et_in [place] [Paxil] _the_ Health Paxil 10 MG mor Care) ng} 200 ACTUAT Ventol active 2 puffs eC W2 Albuterol in HFA (Polo 0.09 108 [facility] MG/ACTUAT (90 Health Metered Base) Care) Dose MCG/AC Inhaler T [Ventolin] Ventolin HFA 108 (90 Base) MCG/ACT Sertraline Zoloft active 2 tablet e CW2 100 MG Oral 100 mg ([place] Tablet M[place] [Zoloft] [facility] Zoloft 100 Care) mg Iron 325 Iron active 1 tablet eCW2 (65 Fe) MG 325 (Polo (65 [facility]) pantoprazol Proton suspend 1 tab eC W2 e 40 MG ix 40 ed ([place] Delayed mg [facility] Oral Tablet Care) [Protonix] Protonix 40 mg 3 ML HumaLO active HumaLOG eCW3 Insulin G KwikPen 100 ([place] Lispro 100 KwikPe UNIT/ML Rive r UNT/ML Pen n 100 Health Injector UNIT/M Care) [Humalog] L HumaLOG KwikPen 100 UNIT/ML Clonazepam Klonop active 1 tablet e CW2 0.5 MG [facility] in [facility] [place] [Klonopin] [facility] Klonopin Care) 0.5 mg 3 ML HumaLO active sliding eCW2 Insulin G scale up to ([place] Lispro 100 KwikPe 10 units Jomar er UNT/ML Pen n 100 Health Injector UNIT/M Care) [Humalog] L HumaLOG KwikPen 100 UNIT/ML aripiprazol Abilif active 1 tablet eCW2 e 10 MG y 10 ([place] Oral Tablet MG [place] [Abilify] [facility] Abilify 10 Care) MG Losartan Losart 1.0 active Losartan eCW 3 Potassium an {tabl Potassium 50 ( [place]o 50 MG Oral Potass et} MG [facility] Tablet ium 50 [facility] Care) Depo UNK active as directed eCW2 Provera ([place] [facility] Injection Care) 150 MG/ML Depo UNK active as directed eCW2 Provera ([place] Contrace[facility] Injection Care) 150 MG/ML Insurance Providers Payer name Policy type Policy ID Covered Covered republican's Policy P chas / Coverage republican ID relationship to [facility] Inf ormation type charles [facility] MEDICAID [id number] SP [id number] [facility] MEDICAID [id number] [place] [id number] [facility] MEDICAID [id number] SP [id number] THAI [id number] PT [id number] 500 [facility] O [id number] 01 [id number] 500 [id number] 01 [id number] [facility] [id number] 01 [id number] 500 HEALTH ACUTE Problems, Conditions, and Diagnoses Code Display Name Description Problem Type Effective Data Dates Source(s) N92.1 Menorrhagia with Menorrhagia with Problem 08/25/2019 eC W3 ([place] irregular cycle irregular cycle 12:00:00 AM [facility] EDT Care) J45.40 Moderate persistent Moderate persistent Problem 020 eCW3 ([place] asthma without asthma without 12:00:00 AM [facility] complication complication EST Care) G62.9 Polyneuropathy Polyneuropathy Problem 10/26/2018 eCW3 ( [place] 12:00:00 AM [facility] EDT Care) I10 Essential Essential Problem 10/26/2018 eCW3 ([place] hypertension hypertension 12:00:[address] [facility] EDT Care) E66.01 Morbid obesity Morbid obesity Problem 10/26/2018 eCW3 ( [place] 12:00:00 AM [facility] EDT Care) D64.9 Anemia Anemia, unspecified Problem 09/30/2018 eCW3 ([place] 12:00:00 AM [facility] EDT Care) E11.9 Type II diabetes Type 2 diabetes Problem 09/30/2018 eCW 3 ([place] mellitus without mellitus without 12:00:00 AM [facility] complication complications EDT Care) J45.909 Asthma without Unspecified asthma, Problem 09/30/2018 e CW3 ([place] status asthmaticus uncomplicated 12:00:00 AM [facility] EDT Care) 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 019 NETSMART disorder disorder 04:00:00 AM ([facility]) [id number] Posttraumatic stress Posttraumatic Complaint 08/23/2018 N ETSMART disorder stress disorder 04:00:00 AM ([facility]) [id number] Panic disorder Panic disorder Complaint 08/23/2018 NETSMA RT without agoraphobia without agoraphobia 04:00:0 0 AM ([facility]) N92.1 Menometrorrhagia Menometrorrhagia Problem 10/13/2017 eC W2 ([place] 12:00:00 AM [facility] EDT Care) N93.9 Vaginal bleeding Vaginal bleeding Problem 10/06/2017 eC W2 ([place] 12:00:00 AM [facility] EDT Care) E66.8 Obesity Other obesity Problem 10/06/2017 eCW2 ([place] 12:00:00 AM [facility] EDT Care) Z79.4 MCC current MCC current Problem 08/03/2017 eCW3 ([place] use of insulin use of insulin 12:00:00 AM [facility] EDT Care) J45.41 Moderate persistent Moderate persistent Problem 018 eCW3 ([place] asthma with acute asthma with acute 12:00:00 AM [facility] exacerbation exacerbation EDT Care) E11.65 Type 2 diabetes Type 2 diabetes Problem 08/03/2017 eCW3 ([place] mellitus with mellitus with 12:00:00 AM [facility] hyperglycemia hyperglycemia EDT Care) J45.41 Moderate persistent Moderate persistent Problem 018 eCW2 ([place] asthma with acute asthma with acute 12:00:00 AM [facility] exacerbation exacerbation EDT Care) E11.65 Type 2 diabetes Type 2 diabetes Problem 08/03/2017 eCW2 ([place] mellitus with mellitus with 12:00:00 AM [facility] hyperglycemia hyperglycemia EDT Care) 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/2017 eCW2 ([place] use of insulin use of insulin 12:00:00 AM [facility] EDT Care) Q61.00 Renal cyst Renal cyst Problem 08/20/2016 eCW3 ([place] 12:00:00 AM [facility] EDT Care) Q61.00 Renal cyst Renal cyst Problem 08/20/2016 eCW2 ([place] 12:00:00 AM [facility] EDT Care) E11.9 Diabetes mellitus Type 2 diabetes Problem 08/20/2016 eC W2 ([place] type 2 mellitus with goal 12:00:00 AM [facility] of symptom EDT Care) management G62.9 Peripheral Peripheral Problem 05/21/2016 eCW2 ([place] neuropathy neuropathy 12:00:00 AM [facility] EST Care) K30 Dyspepsia Dyspepsia Problem 05/21/2016 eCW2 ([place] 12:00:00 AM [facility] EST Care) E11.9 Diabetes mellitus Diabetes Problem 05/10/2015 eCW2 ([place] [facility] without complication 12:00:00 AM [facility] EST Care) J45.901 Asthma exacerbation Asthma exacerbation Problem 015 eCW2 ([place] 12:00:00 AM [facility] EDT Care) 590.80 Pyelonephritis Pyelonephritis Problem 06/27/2014 eCW2 ( [place] 12:00:00 AM [facility] Care) 493.92 Exacerbation of Asthma exacerbation Problem 10/25/2013 eCW2 ([place] asthma 12:00:00 AM [facility] EDT Care) 477.9 Allergic rhinitis ALLERGIC RHINITIS Problem eCW2 ([place] [facility]) 285.9 Anemia Anemia Problem eCW2 ([facility]) 493.90 Asthma without Asthma Intermittent Problem e CW2 ([place] status asthmaticus [facility]) 401.9 Essential Essential Problem eCW2 ([place] hypertension Hypertension, [facility] Unspec Care) 791.0 Proteinuria Proteinuria Problem eCW2 ([facility]) 250.00 Diabetes mellitus Diabetes mellitus Problem eCW2 ([place] type [address] 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 Q61.02 Diagnosis 01/09/2020 [place] renal cysts 12:46:00 PM Hospital EDT N20.0 Calculus of kidney N20.0 Diagnosis 01/09/2020 [place] 12:46:00 PM Hospital EDT J90 Pleural effusion, J90 Diagnosis 01/09/2020 [place] not elsewhere 12:46:00 PM Hospital classified EDT I31.3 Pericardial effusion I31.3 Diagnosis 01/09/2020 [place] (noninflammatory) 12:46:00 PM Hospit al EDT I51.7 Cardiomegaly I51.7 Diagnosis 01/09/2020 [place] 12:46:00 PM Hospital EDT R91.8 Other nonspecific R91.8 Diagnosis 01/09/2020 [place] abnormal finding of 12:46:00 PM Hosp ital lung field EDT C53.9 Malignant neoplasm C53.9 Diagnosis 01/09/2020 [place] of cervix uteri, 12:46:00 PM Hospita l unspecified EDT Surgeries/Procedures Procedure Description Date Indications Data Source(s) CUL PRSMPTV PTHGNC 02/25/2018 eCW2 ([facility] ORGANISM SCRN W/COLONY 12:00:00 AM EDT He alth Care) ESTIMJ Results ID Date Data Source [id number] 02/04/2020 05:10:00 PM EDT [facility] Name Value Range Interpretation Description Data Sup porting Code Source(s) Document(s ) SARS [facility] coronavirus 2 RNA This lab was ordered by [facility] and reported by [facility]. ID Date Data Source [id number] 01/13/2020 10:30:00 AM EDT [facility] Name Value Range Interpretation Description Data Sup porting Code Source(s) Document(s ) SARS [facility] coronavirus 2 RNA This lab was ordered by [facility] and reported by [facility]. ID Date Data Source [id number] 12/26/2019 05:45:00 PM EDT [facility] Name Value Range Interpretation Description Data Sup porting Code Source(s) Document(s ) SARS [facility] coronavirus 2 RNA This lab was ordered by [facility] and reported by [facility]. ID Date Data Source [id number] 12/20/2019 06:45:00 PM EDT [facility] Name Value Range Interpretation Description Data Sup porting Code Source(s) Document(s ) SARS [facility] coronavirus 2 RNA This lab was ordered by [facility] and reported by [facility]. ID Date Data Source [id number] 11/17/2019 11:25:00 PM EDT [facility] Name Value Range Interpretation Description Data Sup porting Code Source(s) Document(s ) SARS [facility] CORONAVIRUS 2 RNA This lab was ordered by [facility] and reported by [facility]. ID Date Data Source [id number] 10/08/2019 03:15:00 PM EDT [facility] Name Value Range Interpretation Description Data Sup porting Code Source(s) Document(s ) SARS [facility] CORONAVIRUS 2 RNA This lab was ordered by [facility] and reported by [facility]. ID Date Data Source Liver Profile 07/11/2018 04:15:00 PM EST [facility] Name Value Range Interpretation Description Data Sup porting Code Source(s) Document(s ) Aspartate 14-36 <content [facility] aminotransferase styleCode="Bold"> [facility] [Enzymatic Aspartate Medical activity/volume] Aminotransferase Center in Serum or Plasma (AST) </content>22 IU/L<content styleCode="Italic s"> (14-36 IU/L)</content> Alanine 7-30 <content [facility] aminotransferase styleCode="Bold"> [place] [facility] [Enzymatic Alanine Medical activity/volume] Aminotransferase Center in Serum or Plasma (ALT) </content>17 IU/L<content styleCode="Italic s"> (7-30 IU/L)</content> Bilirubin.total 0.2-1.3 <content [facility] [Mass/volume] in styleCode="Bold"> [place] hs Serum or Plasma Bilirubin Total Medical </content>0.5 Center MG/DL<content styleCode="Italic s"> (0.2-1.3 MG/DL)</content> UNK 0.0-0.3 <content [facility] styleCode="Bold"> Bhavani Bilirubin, Direct Medical </content>< 0.2 Center MG/DL<content styleCode="Italic s"> (0.0-0.3 MG/DL)</content> Albumin 3.5-5.0 Below low <content [facility] [Mass/volume] in normal styleCode="Bold"> [place] hs Serum or Plasma Albumin Medical </content>3.3 Center G/DL L<content styleCode="Italic s"> (3.5-5.0 G/DL)</content> Alkaline 38-126 <content [facility] phosphatase styleCode="Bold"> Bhavani [Enzymatic Alkaline Medical activity/volume] Phosphatase (ALP) Cente r in Serum or Plasma </content>121 IU/L<content styleCode="Italic s"> (38-126 IU/L)</content> ID Date Data Source HematologyRou 07/11/2018 04:15:00 PM EST [facility] Name Value Range Interpretation Description Data Sup porting Code Source(s) Document(s ) Leukocytes 4.4-11.0 Above high <content [facility] [#/volume] in normal styleCode="Bold Bhavani Blood by ">White Blood Medical Automated count Cell Count Center </content>12.83 KCUMM H<content styleCode="Ital ics"> (4.4-11.0 KCUMM)</content > Erythrocytes 4.0-5.1 Below low normal <content [facility] [#/volume] in styleCode="Bold Bhavani Blood by ">Red Blood Medical Automated count Cell Count Center </content>3.82 MCUMM L<content styleCode="Ital ics"> (4.0-5.1 MCUMM)</content > Hematocrit 36.0-46. Below low normal <content [facility] [Volume 0 styleCode="Bold Bhavani Fraction] of ">Hematocrit Medical Blood by </content>32.9 Center Automated count % L<content styleCode="Ital ics"> (36.0-46.0 %)</content> Erythrocyte mean 80.0-100 <content [facility] corpuscular .0 styleCode="Bold Bhavani volume [Entitic ">Mean Medical volume] by Corpuscular Center Automated count Volume </content>86.1 FL<content styleCode="Ital ics"> (80.0-100.0 FL)</content> Erythrocyte mean 26.0-34. <content [facility] corpuscular 0 styleCode="Bold Bhavani hemoglobin ">Mean Medical [Entitic mass] Corposcular Center by Automated Hemoglobin count </content>29.8 PG<content styleCode="Ital ics"> (26.0-34.0 PG)</content> Hemoglobin 12.3-16. Below low normal <content [facility] [Mass/volume] in 0 styleCode="Bold Bhavani Blood ">Hemoglobin Medical </content>11.4 Center G/DL L<content styleCode="Ital ics"> (12.3-16.0 G/DL)</content> Platelets 130-400 <content [facility] [#/volume] in styleCode="Bold Bhavani Blood by ">Platelet Medical Automated count Count Center </content>250 KCUMM<content styleCode="Ital ics"> (130-400 KCUMM)</content > Erythrocyte 11.5-14. <content [facility] distribution 5 styleCode="Bold Bhavani width [Ratio] by ">Red Cell Medical Automated count Distribution Center Width </content>12.1 %<content styleCode="Ital ics"> (11.5-14.5 %)</content> Platelet mean 8.0-11.0 <content [facility] volume [Entitic styleCode="Bold Bhavani volume] in Blood ">Mean Platelet Medical by Automated Volume Center count </content>10.7 FL<content styleCode="Ital ics"> (8.0-11.0 FL)</content> Erythrocyte mean 32.0-37. <content [facility] corpuscular 0 styleCode="Bold Bhavani hemoglobin ">Mean Corpus. Medical concentration Hgb Center [Mass/volume] by Concentration Automated count (MCHC) </content>34.7 G/DL<content styleCode="Ital ics"> (32.0-37.0 G/DL)</content> UNK 0 <content [facility] styleCode="Bold Bhavani ">Nucleated Red Medical Blood Cell Center </content>0.0 /100<content styleCode="Ital ics"> (0 /100)</content> UNK 0.0 <content Saint styleCode="Bold Bhavani ">Nucleated Red Medical Blood Cell Center Count </content>0.00 KCUMM<content styleCode="Ital ics"> (0.0 KCUMM)</content > ID Date Data Source GFR(Creatinine) 07/11/2018 04:15:00 PM [facility] Name Value Range Interpretation Code Description Data Radha rce(s) Supporting Document(s ) UNK > 60 Below low normal <content [facility] styleCode="Bold"> Medical Cent er EGFR </content>39 GFR L<content styleCode="Italic s"> (> 60 GFR)</content> ID Date Data Source CHMROUTINECCDA 07/11/2018 04:15:00 PM [facility] Name Value Range Interpretation Description Data Sup porting Code Source(s) Document(s ) Lipase 23-300 <content [facility] [Enzymatic styleCode="Bold Medical activity/vo ">Lipase Center lume] in </content>49 Serum or IU/L<content Plasma styleCode="Ital ics"> (23-300 IU/L)</content> ID Date Data Source BMP 07/11/2018 04:15:00 PM [facility] Name Value Range Interpretation Description Data Sup porting Code Source(s) Document(s ) Sodium 137-145 Below low <content [facility] [Moles/volume] in normal styleCode="Bold"> Niels phs Serum or Plasma Sodium Medical </content>133 Center MEQ/L L<content styleCode="Italic s"> (137-145 MEQ/L)</content> Potassium 3.5-5.3 <content [facility] [Moles/volume] in styleCode="Bold"> Niels phs Serum or Plasma Potassium Medical </content>4.9 Center MEQ/L<content styleCode="Italic s"> (3.5-5.3 MEQ/L)</content> UNK 7-17 Above high <content [facility] normal styleCode="Bold"> Bhavani BUN </content>28 Medical MG/DL H<content Center styleCode="Italic s"> (7-17 MG/DL)</content> Creatinine 0.5-1.3 Above high <content [facility] [Mass/volume] in normal styleCode="Bold"> [place] hs Serum or Plasma Creatinine Medical </content>1.6 Center MG/DL H<content styleCode="Italic s"> (0.5-1.3 MG/DL)</content> Carbon dioxide, 22-30 Below low <content [facility] total normal styleCode="Bold"> Bhavani [Moles/volume] in Carbon Dioxide Medical Serum or Plasma </content>17 Center MEQ/L L<content styleCode="Italic s"> (22-30 MEQ/L)</content> Chloride 98-107 <content [facility] [Moles/volume] in styleCode="Bold"> Niels phs Serum or Plasma Chloride Medical </content>106 Center MEQ/L<content styleCode="Italic s"> (98-107 MEQ/L)</content> Glucose 74-106 Above high <content [facility] [Mass/volume] in normal styleCode="Bold"> [place] [facility] Serum or Plasma Glucose Medical </content>343 Center MG/DL H<content styleCode="Italic s"> (74-106 MG/DL)</content> UNK > 60 Below low <content [facility] normal styleCode="Bold"> Bhavani EGFR </content>39 Medical GFR L<content Center styleCode="Italic s"> (> 60 GFR)</content> Alanine 7-30 <content [facility] aminotransferase styleCode="Bold"> [place] [facility] [Enzymatic Alanine Medical activity/volume] Aminotransferase Center in Serum or Plasma (ALT) </content>17 IU/L<content styleCode="Italic s"> (7-30 IU/L)</content> Alkaline 38-126 <content [facility] phosphatase styleCode="Bold"> [facility] [Enzymatic Alkaline Medical activity/volume] Phosphatase (ALP) Cente r in Serum or Plasma </content>121 IU/L<content styleCode="Italic s"> (38-126 IU/L)</content> Calcium 8.4-10. <content [facility] [Mass/volume] in 2 styleCode="Bold"> [place] hs Serum or Plasma Calcium Medical </content>8.5 Center MG/DL<content styleCode="Italic s"> (8.4-10.2 MG/DL)</content> Aspartate 14-36 <content [facility] aminotransferase styleCode="Bold"> [place] [facility] [Enzymatic Aspartate Medical activity/volume] Aminotransferase Center in Serum or Plasma (AST) </content>22 IU/L<content styleCode="Italic s"> (14-36 IU/L)</content> Albumin 3.5-5.0 Below low <content [facility] [Mass/volume] in normal styleCode="Bold"> [place] hs Serum or Plasma Albumin Medical </content>3.3 Center G/DL L<content styleCode="Italic s"> (3.5-5.0 G/DL)</content> Bilirubin.total 0.2-1.3 <content [facility] [Mass/volume] in styleCode="Bold"> [place] hs Serum or Plasma Bilirubin Total Medical </content>0.5 Center MG/DL<content styleCode="Italic s"> (0.2-1.3 MG/DL)</content> ID Date Data Source Urinalysis 07/11/2018 03:50:00 PM EST [facility] Name Value Range Interpretation Description Data Sup porting Code Source(s) Document(s ) Color of Urine YELLOW <content [facility] styleCode="Antonietta Beckham d">Color, Medical Urine Center </content>YELL OW <content styleCode="Cheryl lics"> (YELLOW )</content> UNK NEGATIVE <content Saint styleCode="Antonietta Bhavani d">Urine Medical Bilirubin Center </content>NEGA TIVE <content styleCode="Cheryl lics"> (NEGATIVE )</content> UNK CLEAR <content Saint styleCode="Antonietta Bhavani d">Urine Medical Clarity Center </content>ANTHONY R <content styleCode="Cheryl lics"> (CLEAR )</content> Glucose NEGATIVE <content [facility] [Mass/volume] styleCode="Antonietta Carlsons in Urine by d">Urine Medical Test strip Glucose Center </content>>=10 00 MG/DL<content styleCode="Cheryl lics"> (NEGATIVE MG/DL)</conten t> Protein NEGATIVE <content [facility] [Mass/volume] styleCode="Antonietta Bhavani in Urine by d">Urine Medical Test strip Protein Center </content>300 mg/dl MG/DL<content styleCode="Cheryl lics"> (NEGATIVE MG/DL)</conten t> Specific 1.015-1.02 <content [facility] gravity of 5 styleCode="Antonietta Carlsons Urine by Test d">Urine Medical strip Specific Center [place] </content>1.02 5 NM<content styleCode="Cheryl lics"> (1.015-1.025 NM)</content> Ketones NEGATIVE <content [facility] [Mass/volume] styleCode="Antonietta Bhavani in Urine by d">Urine Medical Test strip Ketone Center </content>NEGA TIVE MG/DL<content styleCode="Cheryl lics"> (NEGATIVE MG/DL)</conten t> Hemoglobin NEGATIVE <content [facility] [Presence] in styleCode="Antonietta Carlsons Urine by Test d">Urine Blood Medical strip </content>MODE Center RATE <content styleCode="Cheryl lics"> (NEGATIVE )</content> pH of Urine by 4.5-8.0 <content [facility] Test strip styleCode="Antonietta Bhavani d">Urine pH Medical </content>6.0 Center NM<content styleCode="Cheryl lics"> (4.5-8.0 NM)</content> Leukocyte NEGATIVE <content [facility] esterase styleCode="Antonietta Bhavani [Presence] in d">Urine Medical Urine by Test Leukocyte Center strip </content>NEGA TIVE <content styleCode="Cheryl lics"> (NEGATIVE )</content> UNK 0-3 <content Saint styleCode="Antonietta Bhavani d">Urine Red Medical Blood Cell Center </content>5 - 10 HPF<content styleCode="Cheryl lics"> (0-3 HPF)</content> Nitrite NEGATIVE <content Saint [Presence] in styleCode="Antonietta Bhavani Urine by Test d">Urine Medical strip Nitrite Center </content>NEGA TIVE <content styleCode="Cheryl lics"> (NEGATIVE )</content> Urobilinogen 0.2-1.0 <content Saint [Units/volume] styleCode="Antonietta Bhavani in Urine by d">Urine Medical Test strip Urobilinogen Center </content>0.2 MG/DL<content styleCode="Cheryl lics"> (0.2-1.0 MG/DL)</conten t> UNK NEGATIVE <content Saint styleCode="Antonietta Bhavani d">Urine Medical Bacteria Center </content>FEW HPF<content styleCode="Cheryl lics"> (NEGATIVE HPF)</content> UNK 0-3 <content Saint styleCode="Antonietta Bhavani d">Urine White Medical Blood Cell Center </content>0-3 HPF<content styleCode="Cheryl lics"> (0-3 HPF)</content> UNK <content Saint styleCode="Antonietta Bhavani d">Epithelial Medical Cell Center </content>10 - 20 LPF (Reference Range: not available)<br/ > ID Date Data Source STREP SCREEN, GROUP A 02/25/2018 12:00:00 AM EDT eCW2 ([facility] BETA-HEMOLYTIC.1 Care) Name Value Range Interpretation Description Data Sup porting Code Source(s) Document(s ) Streptococcus NEGATIVE NEGATIVE STREP, GRP.A, eCW2 pyogenes DNA ([place] [Presence] in [facility] Organ[facility] Care) specific culture ID Date Data Source Rapid Strep A, In House.0 02/25/2018 12:00:00 AM EDT eCW2 ([facility]) Name Value Range Interpretation Description Data Sup porting Code Source(s) Document(s ) negative negative - Rapid Strep A eCW2 ([facility]) Procedure Social History Code Duration Value Status Description Data Source(s ) Smoking 09/08/2019 Former Smoker completed Former Smoker eCW3 ( [facility] 12:00:00 AM EDT [facility]) Smoking 07/11/2018 Former Smoker completed Former Smoker [place] [facility] 03:39:00 PM EST Medical C enter Smoking 07/11/2018 Former Smoker completed Former Smoker [place] [facility] 03:22:00 PM EST Medical C enter Smoking 07/11/2018 Former Smoker completed Former Smoker [facility] 02:52:00 PM EST Medical C enter Former Smoker completed Former Smoker eCW3 ([facility]) Smoking Unknown if ever completed Unknown if ever eCW2 ([facility]) Vital Signs ID Date Data Source UNK Name Value Range Interpretation Code Description Data Source(s) Diastolic blood 78 mm[Hg] 78 mm[Hg] eCW3 ([facility]) Systolic blood 123 mm[Hg] 123 mm[Hg] eCW3 ([facility]) Body temperature 97.6 [degF] 97.6 [degF] eCW3 ( [facility]) Heart rate 18 /min 18 /min eCW3 ([facility]) Body mass index 42.53 kg/m2 42.53 kg/m2 eCW3 ([facility]adeo moon (BMI) [Ratio] [facility]) Body weight 242.0 242.0 [lb_av] eCW3 ([facility] [lb_av] [facility]) Body height 63.25 [in_i] 63.25 [in_i] eCW3 ([facility]) Body temperature 37.218844 37.339365 [facility] Respiratory rate 18 /min 18 /min [facility] Oxygen saturation 98 % 98 % [facility] in [facility] blood [facility] Center by Pulse oximetry Heart rate 82 /min 82 /min [facility] Diastolic blood 76 mm[Hg] 76 mm[Hg] [facility] Systolic blood 139 mm[Hg] 139 mm[Hg] [facility] Center Body temperature 36.680186 36.766610 [facility] Respiratory rate 18 /min 18 /min [facility] Oxygen saturation 98 % 98 % [facility] J osephs in Arterial blood Medical Center by Pulse oximetry Heart rate 80 /min 80 /min [facility] Diastolic blood 78 mm[Hg] 78 mm[Hg] [facility] Center Systolic blood 140 mm[Hg] 140 mm[Hg] [facility] Body weight 92.930220 kg 92.443031 kg [facility] Center Body temperature 36.863918 36.094068 [facility] Respiratory rate 17 /min 17 /min [facility] Oxygen saturation 100 % 100 % [facility] Nikunj osephs in Arterial blood [facility] Center by Pulse oximetry Heart rate 101 /min 101 /min [facility] Body height 162.472299 162.439849 cm [facility] Diastolic blood 75 mm[Hg] 75 mm[Hg] [facility] Center Systolic blood 137 mm[Hg] 137 mm[Hg] [facility] Body mass index 35.1 kg/m2 35.1 kg/m2 [facility] (BMI) [Ratio] [facility] Diastolic blood 82 mm[Hg] 82 mm[Hg] eCW2 ([facility]) Systolic blood 129 mm[Hg] 129 mm[Hg] eCW2 ([facility]) Body temperature 100.4 [degF] 100.4 [degF] eCW2 ([facility]) Body mass index 37.42 kg/m2 37.42 kg/m2 eCW2 ([facility] (BMI) [Ratio] [facility]) Body weight 218 [lb_av] 218 [lb_av] eCW2 ([facility]) Body height 64 [in_us] 64 [in_us] eCW2 ([facility]) Patient Treatment Plan of Care Planned Activity Planned Date Details Description Data Source (s) Naphazoline Hydrochloride 09/08/2019 12:00:00 eCW3 ([facility] 0.25 MG/ML / Pheniramine AM EDT [facility]) Maleate 3 MG/ML Ophthalmic Solution [Naphcon A]
[2020-02-10] MEDS ORDERED: DEXAMETHASONE SODIUM PHOSPHATE 12 MG in SODIUM CHLORIDE 50 ML IVPB ONE (09:15)
[2020-02-10] MEDS ORDERED: PALONOSETRON HCL 0.25 MG/5 ML VIAL IVPUSH ONE (10:00)
[2020-02-10] MEDS ORDERED: SODIUM CHLORIDE IVPB ONE (10:30)
[2020-02-10] MEDS ORDERED: CARBOPLATIN IVPB ONE (10:30)
[2020-02-10 15:58] LABS: BASO % 0.3 % (0-2.0); EOS % 1.4 % (0-4.5); HEMATOCRIT 23.8 % (32.4-45.2); HEMOGLOBIN 7.8 GM/dL (10.7-15.3); MCH 29.1 pg (25.7-33.7); MCHC 32.7 g/dl (32.0-36.0); MEAN PLT VOLUME 8.2 fl (7.5-11.1); MONO % 9.9 % (3.8-10.2); NEUT % 82.4 % (42.8-82.8); PLATELET COUNT 59 K/MM3 (134-434); RBC 2.67 M/mm3 (3.60-5.2); RDW 16.2 % (11.6-15.6); WHITE BLOOD COUNT 6.1 K/mm3 (4.0-10.0)
[2020-02-10 16:37] LABS: ALBUMIN 1.8 g/dl (3.4-5.0); BILIRUBIN,TOTAL 0.3 mg/dL (0.2-1); BLOOD UREA NITROGEN 22.5 mg/dL (7-18); CALCIUM 7.4 mg/dL (8.5-10.1); CREATININE 3.5 mg/dL (0.55-1.3); MAGNESIUM 1.5 mg/dL (1.8-2.4); POTASSIUM 3.4 mmol/L (3.5-5.1); TOT PROT 5.1 g/dl (6.4-8.2)
[2020-02-10] MEDS ORDERED: PORTA CATH FLUSH 10 ML IVPUSH ONE ×2 (17:57→18:07)
[2020-02-10] MEDS ORDERED: oxyCODONE HCL 5 MG TABLET PO PRN (18:23)
[2020-02-10] MEDS ORDERED: LOPERAMIDE HCL 2 MG CAPSULE PO PRN (18:24)
[2020-02-11 08:02] VITALS: BP 152/87; PULSE 93; TEMP 98.9
[2020-02-11] MEDS ORDERED: POTASSIUM CHLORIDE TABS 10 MEQ TABLET.ER (FP) PO ONE (08:47)
[2020-02-11] MEDS ORDERED: MAGNESIUM OXIDE 400 MG TABLET (FP) PO ONE (08:48)
[2020-02-11 09:48] LABS: HEMATOCRIT 30.6 % (32.4-45.2); HEMOGLOBIN 10.2 GM/dL (10.7-15.3); MCH 29.7 pg (25.7-33.7); MCHC 33.3 g/dl (32.0-36.0); MEAN CELL VOLUME 89.1 fl (80-96); MEAN PLT VOLUME 7.9 fl (7.5-11.1); PLATELET COUNT 65 K/MM3 (134-434); RBC 3.44 M/mm3 (3.60-5.2); RDW 15.1 % (11.6-15.6); WHITE BLOOD COUNT 7.5 K/mm3 (4.0-10.0)
[2020-02-11 10:15] LABS: IRON SERUM 58 ug/dL (50-175); LDH 306 U/L (84-246); TOTAL IRON BINDING CAPACITY 99 ug/dL (250-450)
== END 2020-02-11 09:42 | disposition home or self-care (01) ==
LOC: JONCBLOOD 07:19 → JASUSAT 07:19 → J7W 17:23 → JASUSAT 02-11 09:42
PROVIDERS: ATTEND Internal Medicine Hematology & Oncology
PROC: 30233N1 Transfusion of Nonautologous Red Blood Cells into Peripheral Vein, Percutaneous Approach (ICD-10-PCS; principal; 2020-02-10)
DX: D63.8 Anemia in other chronic diseases classified elsewhere (principal); E11.9 Type 2 diabetes mellitus without complications; I12.0 Hypertensive chronic kidney disease with stage 5 chronic kidney disease or end stage renal disease; N18.6 End stage renal disease
CPT/HCPCS: 36415; 36430; 80053; 82728; 83540; 83550; 83615; 83735; 85025; 85027; 86850; 86880; 86900; 86901; 86922; P9058

== ENCOUNTER 2020-02-15 07:12 | Day surgery (SDC) | payer OTHER ==
--- NOTE | 2020-02-11 16:59 | PN.HO ---
Progress Note (short form) - Note Progress Note: PAtient seen and examined 40 y/o with cervical cancer, stage IIIC vs VARGHESE , also with ESRD, anemia, comes in with anemia, dizziness AFVSS Cor: RSR, No murmurs, No gallops Lungs: Clear to P&A Abd: Soft, Normal bowel sounds, No organomegaly Ext:No significant edema LAbs/MEds eviewed A/P 40 y/o with cervical cancer, stage IIIC vs VARGHESE , also with ESRD, anemia, comes in with anemia, dizziness For elective blood transfusion Hold carboplatin today for platelet count of 59,000 For dialysis in am Follow up on Thursday
--- OUTSIDE RECORDS SUMMARY | 2020-02-15 07:18 | XMS ---
[...] is protected by Article 27-F of the [place] State Public Health law. If you continue you may haveaccess to information: Regarding HIV / AIDS; Provided by facilities licensed or operated by the [facility] Office of Mental Health; or Provided by the [facility] Office for People With Developmental Disabilities. If such information is present, then the following [facility] mandated warning applies: This information has been [...] law may result in a fine or custodial sentence or both. A general authorization for the release of medical or other information is NOT sufficient authorization for further disclosure. Allergies and Adverse Reactions Type Description Substance Reaction Status Data Source(s ) Drug allergy Augmentin Amoxicillin 500 MG rash Active eCW2 (Polo / Clavulanate 125 [facility] ealth MG Oral Tablet Care) [Augmentin] Food allergy No Known Food No Known Food [facility] Allergies [facility] Drug allergy No Known Drug No Known Drug [facility] Allergies Allergies [facility] Drug allergy Augmentin Amoxicillin / rash Active eCW3 ([facility] Clavulanate [facility]) Encounters Encounter Providers Location Date Indications Data Source(s ) Outpatient 01/09/2020 12:46:00 CERVICAL CA [facility] PM EDT CERVICAL CA Outpatient Attender: [address] 08/03/2019 04:32:19 PM GSI ([facility] EDT Collaborative) Patient admitted. Outpatient Attender: [facility] 08/03/2019 04:32:06 PM [facility] ([facility] EDT Collaborative) Patient admitted. Outpatient Attender: [address] 08/03/2019 04:31:35 PM [facility]SI ([facility] EDT Collaborative) Patient admitted. Outpatient [facility] 10/26/2018 12:00:00 eCW3 ([facility] A28 AM EDT - 10/26/2018 [facility] 12:00:00 AM EDT Care) Emergency H 07/11/2018 02:46:00 [facility] 05/08/2018 12:00:0 0 eCW2 ([facility] AM EST [facility] 05/07/2018 12:00:00 eCW2 ([facility] EST [facility]) [facility] 04/17/2018 12:00: 00 eCW2 ([facility] AM EST [facility]) [facility] 03/23/2018 12:00: 00 eCW2 ([facility] AM EDT [facility]) [facility] Janeen [place] 02/25/2018 12:00:00 eCW2 ([facility] AM EDT [facility]) Silvia Freemanleopoldo [place] 02/12/2018 12:00: 00 eCW2 ([facility] AM EDT [facility]) Silvia Freemanleopoldo Yu 01/20/2018 12:00: 00 eCW2 ([facility] AM EDT [facility]) Silvia Freemanleopoldo Yu 10/26/2017 12:00: 00 eCW2 ([facility] AM EDT [facility]) Silvia Pachecomonica Yu 10/13/2017 12:00: 00 eCW2 ([facility] AM EDT [facility]) Silvia Pachecomonica Yu 10/09/2017 12:00: 00 eCW2 ([facility] AM EDT [facility]) Silvia Pachecomonica Yu 10/06/2017 12:00: 00 eCW2 ([facility] AM EDT [facility]) Silvia Freemanleopoldo [place] 10/02/2017 12:00: 00 eCW2 ([facility] AM EDT [facility]) Silvia Pachecomonica Yu 08/06/2017 12:00: 00 eCW2 ([facility] AM EDT [facility]) Silvia Pachecomonica [place] 08/04/2017 12:00: 00 eCW2 ([facility] AM EDT [facility]) Silvia Pachecomonica [place] 08/03/2017 12:00: 00 eCW2 ([facility] AM EDT [facility]) Silvia [place] Janeen Yu 06/29/2017 12:00: 00 eCW2 ([facility] AM EST [facility]) Silvia Pachecomonica Yu 06/25/2017 12:00: 00 eCW2 ([facility] AM EST [facility]) Silvia Pachecomonica Yu 04/07/2017 12:00: 00 eCW2 ([facility] AM EST [facility]) Silvia Pachecomonica Yu 03/26/2017 12:00: 00 eCW2 ([facility] AM EDT [facility]) Silvia Pachecomonica Yu 12/26/2016 12:00: 00 eCW2 ([facility] AM EDT [facility]) Silvia Pachecomonica uY 08/20/2016 12:00: 00 eCW2 ([facility] AM EDT [facility]) Silvia De Paznjayce Pachecomonica Yu 06/10/2016 12:00: 00 eCW2 ([facility] AM EST [facility]) [place] Pachecomonica Yu 05/21/2016 12:00: 00 eCW2 ([facility] AM EST [facility]) [place] Work[place] Janeen Yu 04/23/2016 12:00: 00 eCW2 ([facility] AM EST [facility]) [place] Pachecomonica Yu 04/09/2016 12:00: 00 eCW2 ([facility] AM EST [facility]) [place] [facility] Work[facility] Janeen Yu 03/11/2016 12:00: 00 eCW2 ([facility] AM EDT [facility]) [place] Janeen Yu 02/29/2016 12:00: 00 eCW2 ([facility] AM EDT [facility]) [place] Janeen Yu 02/28/2016 12:00: 00 eCW2 ([facility] AM EDT [facility]) [place] Janeen Yu 02/06/2016 12:00: 00 eCW2 ([facility] AM EDT [facility]) Silvia Freemanleopoldo Yu 12/26/2015 12:00: 00 eCW2 ([facility] AM EDT [facility]) Silvia Freemanleopoldo [place] 12/26/2015 12:00: 00 eCW2 ([facility] AM EDT [facility]) Silvia Pachecomonica Yu 12/20/2015 12:00: 00 eCW2 ([facility] AM EDT [facility]) Silvia Freemanleopoldo Yu 12/20/2015 12:00: 00 eCW2 ([facility] AM EDT [facility]) Silvia Pachecomonica Yu 06/08/2015 12:00: 00 eCW2 ([facility] AM EST [facility]) [place] Pachecomonica Yu 05/10/2015 12:00: 00 eCW2 ([facility] AM EST [facility]) [place] Pachecomonica Yu 03/22/2015 12:00: 00 eCW2 ([facility] AM EDT [facility]) [place] Freemanleopoldo Yu 03/14/2015 12:00: 00 eCW2 ([facility] AM EDT [facility]) Silvia Pachecomonica Yu 01/12/2015 12:00: 00 eCW2 ([facility] AM EDT [facility]) Silvia Pachecomonica [place] 12/21/2014 12:00: 00 eCW2 ([facility] AM EDT [facility]) [place] Pachecomonica [place] 10/03/2014 12:00: 00 eCW2 ([facility] AM EDT [facility]) [place] Janeen Yu 07/24/2014 12:00: 00 eCW2 ([facility] AM EST [facility]) [facility] 07/21/2014 12:00:00 eCW2 ([facility] AM EST [facility] 06/27/2014 12:00: 00 eCW2 ([facility] AM EST [facility]) [facility] 05/15/2014 12:00: 00 eCW2 ([facility] AM EST [facility]) [facility] 05/13/2014 12:00: 00 eCW2 ([facility] AM EST [facility]) [facility] 05/08/2014 12:00: 00 eCW2 ([facility] AM EST [facility]) [facility] 04/17/2014 12:00: 00 eCW2 ([facility] AM EST [facility]) [facility] 04/14/2014 12:00: 00 eCW2 ([facility] AM EST [facility]) [facility] 04/13/2014 12:0 0:00 eCW2 ([facility] AM EST [facility]) [facility] 04/05/2014 12:0 0:00 eCW2 ([facility] AM EST [facility]) [facility] 03/17/2014 12:00: 00 eCW2 ([facility] AM EDT [facility]) [facility] 03/14/2014 12:00: 00 eCW2 ([facility] AM EDT [facility]) [facility] 01/20/2014 12:00: 00 eCW2 ([facility] AM EDT [facility]) [facility] 01/18/2014 12:0 0:00 eCW2 ([facility] AM EDT [facility]) Silvia Freemanleopoldo Yu 01/05/2014 12:00: 00 eCW2 ([facility] AM EDT [facility]) Silvia Freemanleopoldo Yu 10/25/2013 12:00: 00 eCW2 ([facility] AM EDT [facility]) Silvia Pachecomonica Yu 09/27/2013 12:00: 00 eCW2 ([facility] AM EDT [facility]) [place] Pachecomonica Yu 08/05/2013 12:00: 00 eCW2 ([facility] AM EDT [facility]) [place] Pachecomonica Yu 07/21/2013 12:00: 00 eCW2 ([facility] AM EST [facility]) [place] Pachecomonica Yu 07/01/2013 12:00: 00 eCW2 ([facility] AM EST [facility]) [place] Pachecomonica Yu 06/30/2013 12:00: 00 eCW2 ([facility] AM EST [facility]) [place] Pachecomonica Yu 06/09/2013 12:00: 00 eCW2 ([facility] AM EST [facility]) [place] Pachecomonica Yu 05/16/2013 12:00: 00 eCW2 ([facility] AM EST [facility]) Silvia Pachecomonica Yu 02/22/2013 12:00: 00 eCW2 ([facility] AM EDT [facility]) [place] Pachecomonica Yu 01/03/2013 12:00: 00 eCW2 ([facility] AM EDT [facility]) Silvia Workman Janeen Yu 12/01/2012 12:00: 00 eCW2 ([facility] AM EDT [facility]) [place] 11/03/2012 12:00: 00 eCW2 ([facility] AM EDT [facility]) [place] 09/30/2012 12:00: 00 eCW2 ([facility] AM EDT [facility]) Silvia [place] 09/21/2012 12:00: 00 eCW2 ([facility] AM EDT [facility]) [place] 09/17/2012 12:00: 00 eCW2 ([facility] AM EDT [facility]) [place] 09/10/2012 12:00: 00 eCW2 ([facility] AM EDT [facility]) [place] 06/30/2012 12:00: 00 eCW2 ([facility] AM EST [facility]) [place] Jacinta Freemann [place] 03/04/2012 12:00: 00 eCW2 ([facility] AM EDT [facility]) [facility] 02/19/2012 12:00:00 eCW2 ([facility] AM EDT [facility]) [facility] 01/16/2012 12:00:00 eCW2 ([facility] AM EDT [facility]) [facility] 01/15/2012 12:00:00 eCW2 ([facility] AM EDT [facility] 12/11/2011 12:00:00 eCW2 ([facility] AM EDT [facility]) [place] Jacinta Freemann [place] 07/15/2011 12:00: 00 eCW2 ([facility] AM EST [facility]) [facility] Jacinta Pachecolyn [place] 07/12/2011 12:00: 00 eCW2 ([facility] AM EST [facility]) [facility] 12/03/2010 12:00:00 eCW2 ([facility] AM EDT [facility]) [facility] 11/19/2010 12:00:00 eCW2 ([facility] AM EDT [facility]) [facility] 11/18/2010 12:00:00 eCW2 ([facility] AM EDT [facility]) [facility] 08/26/2010 12:00:00 eCW2 ([facility] AM EDT [facility]) [facility] 08/23/2010 12:00:00 eCW2 ([facility] AM EDT [facility]) [facility] 07/26/2010 12:00:00 eCW2 ([facility] AM EST [facility]) [facility] 07/25/2010 12:00:00 eCW2 ([facility] AM EST [facility]) [facility] 07/23/2010 12:00:00 eCW2 ([facility] AM EST [facility]) [facility] 05/08/2010 12:00:00 eCW2 ([facility] AM EST [facility]) [facility] 05/07/2010 12:00:00 eCW2 ([facility] AM EST [facility]) [facility] 05/07/2010 12:00:00 eCW2 ([facility] AM EST [facility]) [facility] 04/10/2010 12:00:00 eCW2 ([facility] AM EST [facility]) [facility] 04/03/2010 12:00:00 eCW2 ([facility] AM EST [facility]) [facility] 03/18/2010 12:00:00 eCW2 ([facility] AM EDT [facility]) [facility] 03/07/2010 12:00:00 eCW2 ([facility] AM EDT [facility]) [facility] 03/06/2010 12:00:00 eCW2 ([facility] AM EDT [facility]) [facility] 03/05/2010 12:00:00 eCW2 ([facility] AM EDT [facility]) [facility] 02/28/2010 12:00:00 eCW2 ([facility] AM EDT [facility]) [facility] 02/27/2010 12:00:00 eCW2 ([facility] AM EDT [facility]) [facility] 01/07/2010 12:00:00 eCW2 ([facility] AM EDT [facility]) [facility] 12/13/2009 12:00:00 eCW2 ([facility] AM EDT [facility]) [facility] 09/10/2009 12:00:00 eCW2 ([facility] AM EDT [facility]) [facility] 09/06/2009 12:00:00 eCW2 ([facility] AM EDT [facility]) [facility] 09/05/2009 12:00:00 eCW2 ([facility] AM EDT [facility]) [facility] 06/15/2009 12:00:00 eCW2 ([facility] AM EST [facility]) [facility] 01/26/2009 12:00:00 eCW2 ([facility] AM EDT [facility]) [facility] 11/22/2008 12:00:00 eCW2 ([facility] AM EDT [facility]) Immunizations Vaccine Date Status Description Data Source(s) New in 2011. IIV4 07/11/2017 completed [facility] Medical 01:18:00 PM EST Center Note that this vaccine 05/04/2016 completed [facility] Medical name has changed. See 03:04:00 PM EST Ce nter also Td (adult). It is not adsorbed. No Known Immunizations completed eCW2 ([facility]) Medications Medication Brand Start Product Dose Route Administrative Pharmacy at Indications Reaction Description Data Name Date Form Instructions Instructions Source(s) Paroxetine Paxil .0 Oral active NETS MART 10 MG Oral 2020 Table ([facility] [Paxil] 00 AM [facility] EDT Services) Paroxetine Paxil .0 Oral active NETS MART 10 MG Oral 2020 Table ([facility] [Paxil] 00 AM [facility] EDT Services) Naphazoline [...] Table ([facility] 05:[facility] [place] [Paxil] 00 AM Community EST Services) Paroxetine Paxil .0 Oral active NETS MART 10 MG Oral 2020 Table ([facility] 05:[facility]: [facility] [place] [Paxil] 00 AM Community EST Services) Acetaminoph [...] eCW2 150 MG Oral azole 2016 ed ([facility]o Tablet 150 MG 12:00: [facility] 00 AM [...] MG Oral 100 mg ([place] Table[place] [Zoloft] [facility] Zoloft 100 Care) mg Iron 325 Iron [...] CW2 0.5 MG Oral in 0.5 ([facility] [place] [Klonopin] [facility] Klonopin Care) 0.5 mg 3 ML HumaLO active sliding eCW2 Insulin G scale up to ([place] Lispro 100 KwikPe 10 units Jomar er UNT/ML Pen n 100 Health Injector UNIT/M Care) [Humalog] L HumaLOG KwikPen 100 UNIT/ML aripiprazol Abilif active 1 tablet eCW2 e 10 MG y 10 (Polo Oral Tablet MG [place] [Abilify] [facility] Abilify 10 Care) MG Losartan Losart 1.0 active Losartan eCW 3 Potassium an {tabl Potassium 50 ( Polo 50 MG Oral Potass et} MG [facility] Tablet ium 50 [facility] Care) Depo UNK active as directed eCW2 Provera ([place] [facility] Injection Care) 150 MG/ML Depo UNK active as directed eCW2 Provera ([place] [facility] Injection Care) 150 MG/ML Insurance Providers Payer name Policy type Policy ID Covered Covered democrat's Policy P chas / Coverage democrat ID relationship to [place] Inf ormation type charles [facility] [place]ICAID [id number] SP [id number] [facility] MEDICAID [id number] SP [id number] [facility] [place] [id number] SP [id number] THAI [id number] PT [id number] 500 [facility] O [id number] 01 [id number] 01 [id number] [facility] [id number] 01 [id number] 500 HEALTH ACUTE Problems, Conditions, and Diagnoses Code Display Name Description Problem Type Effective Data Dates Source(s) N92.1 Menorrhagia with Menorrhagia with Problem 08/25/2019 eC W3 ([facility] irregular cycle irregular cycle 12:00:00 AM [facility] EDT Care) J45.40 Moderate persistent Moderate persistent Problem 020 eCW3 ([facility] asthma without asthma without 12:00:00 AM [facility] complication complication EST Care) G62.9 Polyneuropathy Polyneuropathy Problem 10/26/2018 eCW3 ( [facility] 12:00:00 AM [facility] EDT Care) I10 Essential Essential Problem 10/26/2018 eCW3 ([facility] hypertension hypertension 12:00:00 AM [facility] EDT Care) E66.01 Morbid obesity Morbid obesity Problem 10/26/2018 eCW3 ( [facility] 12:00:00 AM [facility] EDT Care) D64.9 Anemia Anemia, unspecified Problem 09/30/2018 eCW3 ([facility] 12:00:00 AM [facility] EDT Care) E11.9 Type II diabetes Type 2 diabetes Problem 09/30/2018 eCW 3 ([facility] mellitus without mellitus without 12:00:00 AM [facility] complication complications EDT Care) J45.909 Asthma without Unspecified asthma, Problem 09/30/2018 e CW3 ([facility] status asthmaticus uncomplicated 12:00:00 AM [facility] EDT Care) 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 019 NETSMART disorder disorder 04:00:00 AM ([facility]) [id number] Posttraumatic stress Posttraumatic Complaint 08/23/2018 N ETSMART disorder stress disorder 04:00:00 AM ([facility]) [id number] Panic disorder Panic disorder Complaint 08/23/2018 NETSMA RT without agoraphobia without agoraphobia 04:00:0 0 AM ([facility]) N92.1 Menometrorrhagia Menometrorrhagia Problem 10/13/2017 eC W2 ([facility] 12:00:00 AM [facility] EDT Care) N93.9 Vaginal bleeding Vaginal bleeding Problem 10/06/2017 eC W2 ([facility] 12:00:00 AM [facility] EDT Care) E66.8 Obesity Other obesity Problem 10/06/2017 eCW2 ([place] 12:00:00 AM [facility] EDT Care) Z79.4 residential current residential current Problem 08/03/2017 eCW3 ([facility] use of insulin use of insulin 12:00:00 AM [facility] EDT Care) J45.41 Moderate persistent Moderate persistent Problem 018 eCW3 ([facility] asthma with acute asthma with acute 12:00:00 AM [facility] exacerbation exacerbation EDT Care) E11.65 Type 2 diabetes Type 2 diabetes Problem 08/03/2017 eCW3 ([facility] mellitus with mellitus with 12:00:00 AM [facility] hyperglycemia hyperglycemia EDT Care) J45.41 Moderate persistent Moderate persistent Problem 018 eCW2 ([facility] asthma with acute asthma with acute 12:00:00 AM [facility] exacerbation exacerbation EDT Care) E11.65 Type 2 diabetes Type 2 diabetes Problem 08/03/2017 eCW2 ([facility] mellitus with mellitus with 12:00:00 AM [facility] hyperglycemia hyperglycemia EDT Care) 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 Problem 08/03/2017 eCW2 ([place] use of insulin use of insulin 12:00:00 AM [facility] EDT Care) Q61.00 Renal cyst Renal cyst Problem 08/20/2016 eCW3 ([facility] 12:00:00 AM [facility] EDT Care) Q61.00 Renal cyst Renal cyst Problem 08/20/2016 eCW2 ([facility] 12:00:00 AM [facility] EDT Care) E11.9 Diabetes mellitus Type 2 diabetes Problem 08/20/2016 eC W2 ([facility] type 2 mellitus with goal 12:00:00 AM [facility] of symptom EDT Care) management G62.9 Peripheral Peripheral Problem 05/21/2016 eCW2 ([facility] neuropathy neuropathy 12:00:00 AM [facility] EST Care) K30 Dyspepsia Dyspepsia Problem 05/21/2016 eCW2 ([facility] 12:00:00 AM [facility] EST Care) E11.9 Diabetes mellitus Diabetes Problem 05/10/2015 eCW2 ([facility] without complication 12:00:00 AM [facility] EST Care) J45.901 Asthma exacerbation Asthma exacerbation Problem 015 eCW2 ([facility] 12:00:00 AM [facility] EDT Care) 590.80 Pyelonephritis Pyelonephritis Problem 06/27/2014 eCW2 ( [place] 12:00:00 AM [facility] Care) 493.92 Exacerbation of Asthma exacerbation Problem 10/25/2013 eCW2 ([place] asthma 12:00:00 AM [facility] EDT Care) 477.9 Allergic rhinitis ALLERGIC RHINITIS Problem eCW2 ([place] NOS [facility]) 285.9 Anemia Anemia Problem eCW2 ([facility]) 493.90 Asthma without Asthma Intermittent Problem e CW2 ([place] status asthmaticus [facility]) 401.9 Essential Essential Problem eCW2 ([place] hypertension Hypertension, [facility] Unspec Care) 791.0 Proteinuria Proteinuria Problem eCW2 ([facility]) 250.00 Diabetes mellitus Diabetes mellitus Problem eCW2 ([place] type 2 type 2 [facility]) 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 Q61.02 Diagnosis 01/09/2020 [facility] renal cysts 12:46:00 PM Hospital EDT N20.0 Calculus of kidney N20.0 Diagnosis 01/09/2020 [facility] 12:46:00 PM Hospital EDT J90 Pleural effusion, J90 Diagnosis 01/09/2020 [place] not elsewhere 12:46:00 PM Hospital classified EDT I31.3 Pericardial effusion I31.3 Diagnosis 01/09/2020 [facility] [place] (noninflammatory) 12:46:00 PM Hospit al EDT I51.7 Cardiomegaly I51.7 Diagnosis 01/09/2020 [facility] 12:46:00 PM Hospital EDT R91.8 Other nonspecific R91.8 Diagnosis 01/09/2020 [place] abnormal finding of 12:46:00 PM Hosp ital lung field EDT C53.9 Malignant neoplasm C53.9 Diagnosis 01/09/2020 [facility] of cervix uteri, 12:46:00 PM Hospita l unspecified EDT Surgeries/Procedures Procedure Description Date Indications Data Source(s) CUL PRSMPTV PTHGNC 02/25/2018 eCW2 ([facility] ORGANISM SCRN W/COLONY 12:00:00 AM EDT He alth Care) ESTIMJ Results ID Date Data Source [id number] 02/04/2020 05:10:00 PM EDT [facility] Name Value Range Interpretation Description Data Sup porting Code Source(s) Document(s ) SARS [facility] coronavirus 2 RNA This lab was ordered by [facility] and reported by [facility]. ID Date Data Source [id number] 01/13/2020 10:30:00 AM EDT [facility] Name Value Range Interpretation Description Data Sup porting Code Source(s) Document(s ) SARS [facility] coronavirus 2 RNA This lab was ordered by [facility] and reported by [facility]. ID Date Data Source [id number] 12/26/2019 05:45:00 PM EDT [facility] Name Value Range Interpretation Description Data Sup porting Code Source(s) Document(s ) SARS [facility] coronavirus 2 RNA This lab was ordered by [facility] and reported by [facility]. ID Date Data Source [id number] 12/20/2019 06:45:00 PM EDT [facility] Name Value Range Interpretation Description Data Sup porting Code Source(s) Document(s ) SARS [facility] coronavirus 2 RNA This lab was ordered by [facility] and reported by [facility]. ID Date Data Source [id number] 11/17/2019 11:25:00 PM EDT [facility] Name Value Range Interpretation Description Data Sup porting Code Source(s) Document(s ) SARS [facility] CORONAVIRUS 2 RNA This lab was ordered by [facility] and reported by [facility]. ID Date Data Source [id number] 10/08/2019 03:15:00 PM EDT [facility] Name Value Range Interpretation Description Data Sup porting Code Source(s) Document(s ) SARS [facility] CORONAVIRUS 2 RNA This lab was ordered by [facility] and reported by [facility]. ID Date Data Source Liver Profile 07/11/2018 04:15:00 PM EST [facility] Name Value Range Interpretation Description Data [...] Data Source HematologyRou 07/11/2018 04:15:00 PM EST [facility] Name Value Range Interpretation Description Data [...] Date Data Source GFR(Creatinine) 07/11/2018 04:15:00 PM [facility] Name Value Range Interpretation Code Description Data Radha rce(s) Supporting Document(s ) UNK > 60 Below low normal <content [facility] styleCode="Bold"> Medical Cent er EGFR </content>39 GFR L<content styleCode="Italic s"> (> 60 GFR)</content> ID Date Data Source [id number] 07/11/2018 04:15:00 PM [facility] Name Value Range Interpretation Description Data Sup porting Code Source(s) Document(s ) Lipase 23-300 <content [facility] [Enzymatic styleCode="Bold Medical activity/vo ">Lipase Center lume] in </content>49 Serum or IU/L<content Plasma styleCode="Ital ics"> (23-300 IU/L)</content> ID Date Data Source BMP 07/11/2018 04:15:00 PM [facility] Name Value Range Interpretation Description Data [...] IU/L)</content> Alkaline 38-126 <content [facility] phosphatase styleCode="Bold"> [facility] [Enzymatic Alkaline Medical activity/volume] Phosphatase (ALP) Cente [...] Data Source Urinalysis 07/11/2018 03:50:00 PM EST [facility] Name Value Range Interpretation Description Data [...] by Test d">Urine Medical strip Specific Center [place] </content>1.02 5 NM<content styleCode="Cheryl lics"> (1.015-1.025 NM)</content> [...] GROUP A 02/25/2018 12:00:00 AM EDT eCW2 ([facility]) Name Value Range Interpretation Description Data Sup porting Code Source(s) Document(s ) Streptococcus NEGATIVE NEGATIVE STREP, GRP.A, eCW2 pyogenes DNA (Polo [Presence] in [facility]) specific culture ID Date Data Source Rapid Strep A, In House.0 02/25/2018 12:00:00 AM EDT eCW2 ([facility]) Name Value Range Interpretation Description Data Sup porting Code Source(s) Document(s ) negative negative - Rapid Strep A eCW2 ([facility]) Procedure Social History Code Duration Value Status Description Data Source(s ) Smoking 09/08/2019 Former Smoker completed Former Smoker eCW3 ( [facility] 12:00:00 AM EDT [facility]) Smoking 07/11/2018 Former Smoker completed Former Smoker [facility] 03:39:00 PM EST Medical C enter Smoking 07/11/2018 Former Smoker completed Former Smoker [facility] 03:22:00 PM EST Medical C enter Smoking 07/11/2018 Former Smoker completed Former Smoker [facility] 02:52:00 PM EST Medical C enter Former Smoker completed Former Smoker eCW3 ([facility]) Smoking Unknown if ever completed Unknown if ever eCW2 ([facility]) Vital Signs ID Date Data Source UNK Name Value Range Interpretation Code Description Data Source(s) Diastolic blood 78 mm[Hg] 78 mm[Hg] eCW3 ([facility]) Systolic blood 123 mm[Hg] 123 mm[Hg] eCW3 ([facility]) Body temperature 97.6 [degF] 97.6 [degF] eCW3 ( [facility]) Heart rate 18 /min 18 /min eCW3 ([facility]) Body mass index 42.53 kg/m2 42.53 kg/m2 eCW3 (Amadeo moon (BMI) [Ratio] [facility]) Body weight 242.0 242.0 [lb_av] eCW3 ([facility] [lb_av] [facility]) Body height 63.25 [in_i] 63.25 [in_i] eCW3 ([facility]) Body temperature 37.376373 37.983777 [facility] Respiratory rate 18 /min 18 /min [facility] Oxygen saturation 98 % 98 % [facility] in [facility] blood [facility] by Pulse oximetry Heart rate 82 /min 82 /min [facility] Diastolic blood 76 mm[Hg] 76 mm[Hg] [facility] Systolic blood 139 mm[Hg] 139 mm[Hg] [facility] Body temperature 36.423903 36.915238 [facility]itza [facility] Respiratory rate 18 /min 18 /min [facility] Oxygen saturation 98 % 98 % [facility] in Arterial blood Medical Center by Pulse oximetry Heart rate 80 /min 80 /min [facility] Diastolic blood 78 mm[Hg] 78 mm[Hg] [facility] Systolic blood 140 mm[Hg] 140 mm[Hg] [facility] Body weight 92.822082 kg 92.904504 kg [facility] Body temperature 36.628738 36.977691 [facility] Respiratory rate 17 /min 17 /min [facility] Oxygen saturation 100 % 100 % [facility]j [facility] in Arterial blood [facility] by Pulse oximetry Heart rate 101 /min 101 /min [facility] Body height 162.928842 162.103940 cm [facility] Diastolic blood 75 mm[Hg] 75 mm[Hg] [facility] Systolic blood 137 mm[Hg] 137 mm[Hg] [facility] Body mass index 35.1 kg/m2 35.1 kg/m2 [facility] (BMI) [Ratio] Medical [facility] Diastolic blood 82 mm[Hg] 82 mm[Hg] eCW2 ([facility]) Systolic blood 129 mm[Hg] 129 mm[Hg] eCW2 ([facility]) Body temperature 100.4 [degF] 100.4 [degF] eCW2 ([facility]) Body mass index 37.42 kg/m2 37.42 kg/m2 eCW2 (H udson (BMI) [Ratio] [facility]) Body weight 218 [lb_av] 218 [lb_av] eCW2 ([facility]) Body height 64 [in_us] 64 [in_us] eCW2 ([facility]) Patient Treatment Plan of Care Planned Activity Planned Date Details Description Data Source (s) Naphazoline Hydrochloride 09/08/2019 12:00:00 eCW3 ([facility] 0.25 MG/ML / Pheniramine AM EDT [facility]) Maleate 3 MG/ML Ophthalmic Solution [Naphcon A]
[2020-02-15] MEDS ORDERED: DEXAMETHASONE INJECTION 12 MG in SODIUM CHLORIDE 50 ML IVPB ONE (09:30)
[2020-02-15] MEDS ORDERED: PALONOSETRON HCL 0.25 MG/5 ML VIAL IVPUSH ONE ×2 (09:30→10:00)
[2020-02-15] MEDS ORDERED: CARBOPLATIN IVPB ONE (10:00)
[2020-02-15] MEDS ORDERED: SODIUM CHLORIDE IVPB ONE (10:00)
[2020-02-15 16:36] LABS: BASO % 0.5 % (0-2.0); EOS % 1.5 % (0-4.5); HEMATOCRIT 27.4 % (32.4-45.2); HEMOGLOBIN 9.3 GM/dL (10.7-15.3); LYMPH % 6.1 % (8-40); MCH 30.1 pg (25.7-33.7); MCHC 33.9 g/dl (32.0-36.0); MEAN CELL VOLUME 88.7 fl (80-96); MEAN PLT VOLUME 8.5 fl (7.5-11.1); MONO % 7.9 % (3.8-10.2); PLATELET COUNT 79 K/MM3 (134-434); RBC 3.09 M/mm3 (3.60-5.2); WHITE BLOOD COUNT 6.1 K/mm3 (4.0-10.0)
[2020-02-15 17:09] LABS: ALBUMIN 1.8 g/dl (3.4-5.0); BILIRUBIN,TOTAL 0.3 mg/dL (0.2-1); BLOOD UREA NITROGEN 17.2 mg/dL (7-18); CALCIUM 7.8 mg/dL (8.5-10.1); CREATININE 3.5 mg/dL (0.55-1.3); MAGNESIUM 1.7 mg/dL (1.8-2.4); POTASSIUM 3.8 mmol/L (3.5-5.1); TOT PROT 5.6 g/dl (6.4-8.2)
[2020-02-15 18:05] VITALS: TEMP 98.6
[2020-02-15] MEDS ORDERED: PORTA CATH FLUSH 10 ML IVPUSH ONE (18:05)
[2020-02-15 18:35] VITALS: BP 141/80; PULSE 85
== END 2020-02-15 18:54 | disposition home or self-care (01) ==
LOC: JONCCHEMO 07:12
PROVIDERS: ATTEND Internal Medicine Hematology & Oncology
DX: Z51.11 Encounter for antineoplastic chemotherapy (principal); C53.8 Malignant neoplasm of overlapping sites of cervix uteri
CPT/HCPCS: 36415; 80053; 83735; 85025; 96375; 96413; J1100; J2469

== ENCOUNTER 2020-02-17 15:45 | Inpatient (IN) | payer OTHER ==
--- OUTSIDE RECORDS SUMMARY | 2020-02-17 16:03 | XMS ---
[...] is protected by Article 27-F of the [place] State Public Health law. If you continue you may haveaccess to information: Regarding HIV / AIDS; Provided by facilities licensed or operated by the [facility] Office of Mental Health; or Provided by the [facility] Office for People With Developmental Disabilities. If such information is present, then the following [facility] mandated warning applies: This information has been [...] law may result in a fine or correction sentence or both. A general authorization for the release of medical or other information is NOT sufficient authorization for further disclosure. Allergies and Adverse Reactions Type Description Substance Reaction Status Data Source(s ) Drug allergy Augmentin Amoxicillin 500 MG rash Active eCW2 ([facility]o / Clavulanate 125 [facility] ealth MG Oral Tablet Care) [Augmentin] Food allergy No Known Food No Known Food [facility] Allergies [facility] Drug allergy No Known Drug No Known Drug [facility] Allergies Allergies [facility] Drug allergy Augmentin Amoxicillin / rash Active eCW3 ([facility] Clavulanate [facility]) Encounters Encounter Providers Location Date Indications Data Source(s ) Outpatient 01/09/2020 12:46:00 CERVICAL CA [facility] PM EDT CERVICAL CA Outpatient Attender: [address] 08/03/2019 04:32:19 PM GSI ([facility] EDT Collaborative) Patient admitted. Outpatient Attender: [facility] 08/03/2019 04:32:06 PM [facility]SI ([facility] EDT Collaborative) Patient admitted. Outpatient Attender: [address] 08/03/2019 04:31:35 PM [facility]SI ([facility] EDT Collaborative) Patient admitted. Outpatient [facility] 10/26/2018 12:00:00 eCW3 ([facility] A28 AM EDT - 10/26/2018 [facility] 12:00:00 AM EDT Care) Emergency H 07/11/2018 02:46:00 [facility] 05/08/2018 12:00:0 0 eCW2 ([facility] AM EST [facility] 05/07/2018 12:00:00 eCW2 ([facility] EST [facility]) [facility] 04/17/2018 12:00: 00 eCW2 ([facility] AM EST [facility]) [facility] 03/23/2018 12:00: 00 eCW2 ([facility] AM EDT [facility] Janeen [place] 02/25/2018 12:00:00 eCW2 ([facility] AM EDT [facility]) Silvia Freemanleopoldo [place] 02/12/2018 12:00: 00 eCW2 ([facility] AM EDT [facility]) Silvia Freemanleopoldo Yu 01/20/2018 12:00: 00 eCW2 ([facility] AM EDT [facility]) Silvia Freemanleopoldo Yu 10/26/2017 12:00: 00 eCW2 ([facility] AM EDT [facility]) Silvia Pachecomonica Yu 10/13/2017 12:00: 00 eCW2 ([facility] AM EDT [facility]) Silvia Pachecomonica Yu 10/09/2017 12:00: 00 eCW2 ([facility] AM EDT [facility]) Silvia Pachecomonica Yu 10/06/2017 12:00: 00 eCW2 ([facility] AM EDT [facility]) Silvia Freemanleopoldo [place] 10/02/2017 12:00: 00 eCW2 ([facility] AM EDT [facility]) Silvia Pachecomonica Yu 08/06/2017 12:00: 00 eCW2 ([facility] AM EDT [facility]) Silvia Pachecomonica [place] 08/04/2017 12:00: 00 eCW2 ([facility] AM EDT [facility]) Siliva Pachecomonica [place] 08/03/2017 12:00: 00 eCW2 ([facility] AM EDT [facility]) Silvia [place] Janeen Yu 06/29/2017 12:00: 00 eCW2 ([facility] AM EST [facility]) Silvia Pachecomonica Yu 06/25/2017 12:00: 00 eCW2 ([facility] AM EST [facility]) Silvia Pachecomonica Yu 04/07/2017 12:00: 00 eCW2 ([facility] AM EST [facility]) Silvia Pachecomonica Yu 03/26/2017 12:00: 00 eCW2 ([facility] AM EDT [facility]) Silvia Pachecomonica Yu 12/26/2016 12:00: 00 eCW2 ([facility] AM EDT [facility]) Silvia Pachecomonica Yu 08/20/2016 12:00: 00 eCW2 ([facility] AM EDT [facility]) Silvia De Paznjayce Pachecomonica Yu 06/10/2016 12:00: 00 eCW2 ([facility] AM EST [facility]) [place] M[place] Pachecomonica Yu 05/21/2016 12:00: 00 eCW2 ([facility] AM EST [facility]) [place] Workman Janeen Yu 04/23/2016 12:00: 00 eCW2 ([facility] AM EST [facility]) [place] Pachecomonica Yu 04/09/2016 12:00: 00 eCW2 ([facility] AM EST [facility]) [place] Work[facility] Janeen Yu 03/11/2016 12:00: 00 eCW2 ([facility] AM EDT [facility]) [place] Janeen Yu 02/29/2016 12:00: 00 eCW2 ([facility] AM EDT [facility]) [place] Janeen Yu 02/28/2016 12:00: 00 eCW2 ([facility] AM EDT [facility]) Silvia [place] Janeen Yu 02/06/2016 12:00: 00 eCW2 ([facility] AM EDT [facility]) Silvia Freemanleopoldo Yu 12/26/2015 12:00: 00 eCW2 ([facility] AM EDT [facility]) Silvia Freemanleopoldo [place] 12/26/2015 12:00: 00 eCW2 ([facility] AM EDT [facility]) Silvia Pachecomonica Yu 12/20/2015 12:00: 00 eCW2 ([facility] AM EDT [facility]) Silvia Freemanleopoldo Yu 12/20/2015 12:00: 00 eCW2 ([facility] AM EDT [facility]) Silvia Pachecomonica Yu 06/08/2015 12:00: 00 eCW2 ([facility] AM EST [facility]) [place] Pachecomonica Yu 05/10/2015 12:00: 00 eCW2 ([facility] AM EST [facility]) [place] Pachecomonica Yu 03/22/2015 12:00: 00 eCW2 ([facility] AM EDT [facility]) [place] Freemanleopoldo Yu 03/14/2015 12:00: 00 eCW2 ([facility] AM EDT [facility]) Silvia Pachecomonica Yu 01/12/2015 12:00: 00 eCW2 ([facility] AM EDT [facility]) Silvia Pachecomonica [place] 12/21/2014 12:00: 00 eCW2 ([facility] AM EDT [facility]) [place] Pachecomonica [place] 10/03/2014 12:00: 00 eCW2 ([facility] AM EDT [facility]) [place] Janeen Yu 07/24/2014 12:00: 00 eCW2 ([facility] AM EST [facility]) [facility] 07/21/2014 12:00:00 eCW2 ([facility] AM EST [facility]2014 12:00: 00 eCW2 ([facility] AM EST [facility]) [facility] 05/15/2014 12:00: 00 eCW2 ([facility] AM EST [facility]) [facility] 05/13/2014 12:00: 00 eCW2 ([facility] AM EST [facility]) [facility] 05/08/2014 12:00: 00 eCW2 ([facility] AM EST [facility]) [facility] 04/17/2014 12:00: 00 eCW2 ([facility] AM EST [facility]) [facility] 04/14/2014 12:00: 00 eCW2 ([facility] AM EST [facility]) [facility] 04/13/2014 12:0 0:00 eCW2 ([facility] AM EST [facility]) [facility] 04/05/2014 12:0 0:00 eCW2 ([facility] AM EST [facility]) [facility] 03/17/2014 12:00: 00 eCW2 ([facility] AM EDT [facility]) [facility] 03/14/2014 12:00: 00 eCW2 ([facility] AM EDT [facility]) [facility] 01/20/2014 12:00: 00 eCW2 ([facility] AM EDT [facility]) [facility] 01/18/2014 12:0 0:00 eCW2 ([facility] AM EDT [facility]) Silvia Freemanleopoldo Yu 01/05/2014 12:00: 00 eCW2 ([facility] AM EDT [facility]) Silvia Freemanleopoldo Yu 10/25/2013 12:00: 00 eCW2 ([facility] AM EDT [facility]) Silvia Pachecomonica Yu 09/27/2013 12:00: 00 eCW2 ([facility] AM EDT [facility]) [place] Pachecomonica Yu 08/05/2013 12:00: 00 eCW2 ([facility] AM EDT [facility]) [place] Pachecomonica Yu 07/21/2013 12:00: 00 eCW2 ([facility] AM EST [facility]) [place] Pachecomonica Yu 07/01/2013 12:00: 00 eCW2 ([facility] AM EST [facility]) [place] Pachecomonica Yu 06/30/2013 12:00: 00 eCW2 ([facility] AM EST [facility]) [place] Pachecomonica Yu 06/09/2013 12:00: 00 eCW2 ([facility] AM EST [facility]) [place] Pachecomonica Yu 05/16/2013 12:00: 00 eCW2 ([facility] AM EST [facility]) Silvia Pachecomonica Yu 02/22/2013 12:00: 00 eCW2 ([facility] AM EDT [facility]) [place] Pachecomonica Yu 01/03/2013 12:00: 00 eCW2 ([facility] AM EDT [facility]) Silvia Workman Janeen Yu 12/01/2012 12:00: 00 eCW2 ([facility] AM EDT [facility]) [place] 11/03/2012 12:00: 00 eCW2 ([facility] AM EDT [facility]) [facility] [facility] [place] 09/30/2012 12:00: 00 eCW2 ([facility] AM EDT [facility]) Silvia [place] 09/21/2012 12:00: 00 eCW2 ([facility] AM EDT [facility]) [facility] [facility] 09/17/2012 12:00: 00 eCW2 ([facility] AM EDT [facility]) [facility] 09/10/2012 12:00: 00 eCW2 ([facility] AM EDT [facility]) [place] 06/30/2012 12:00: 00 eCW2 ([facility] AM EST [facility]) [facility] Jacinta Freemann [place] 03/04/2012 12:00: 00 eCW2 ([facility] AM EDT [facility]) [facility] [place] 02/19/2012 12:00:00 eCW2 ([facility] AM EDT [facility]) [facility] 01/16/2012 12:00:00 eCW2 ([facility] AM EDT [facility]) [facility] [place] 01/15/2012 12:00:00 eCW2 ([facility] AM EDT [facility] 12/11/2011 12:00:00 eCW2 ([facility] AM EDT [facility]) [facility] Jacinta Freemann [place] 07/15/2011 12:00: 00 eCW2 ([facility] AM EST [facility]) [facility] Jacinta Pachecolyn [place] 07/12/2011 12:00: 00 eCW2 ([facility] AM EST [facility]) [facility] 12/03/2010 12:00:00 eCW2 ([facility] AM EDT [facility]) [facility] 11/19/2010 12:00:00 eCW2 ([facility] AM EDT [facility]) [facility] 11/18/2010 12:00:00 eCW2 ([facility] AM EDT [facility]) [facility] 08/26/2010 12:00:00 eCW2 ([facility] AM EDT [facility]) [facility] 08/23/2010 12:00:00 eCW2 ([facility] AM EDT [facility]) [facility] 07/26/2010 12:00:00 eCW2 ([facility] AM EST [facility]) [facility] 07/25/2010 12:00:00 eCW2 ([facility] AM EST [facility]) [facility] 07/23/2010 12:00:00 eCW2 ([facility] AM EST [facility]) [facility] 05/08/2010 12:00:00 eCW2 ([facility] AM EST [facility]) [facility] 05/07/2010 12:00:00 eCW2 ([facility] AM EST [facility]) [facility] 05/07/2010 12:00:00 eCW2 ([facility] AM EST [facility]) [facility] 04/10/2010 12:00:00 eCW2 ([facility] AM EST [facility]) [facility] 04/03/2010 12:00:00 eCW2 ([facility] AM EST [facility]) [facility] 03/18/2010 12:00:00 eCW2 ([facility] AM EDT [facility]) [facility] 03/07/2010 12:00:00 eCW2 ([facility] AM EDT [facility]) [facility] 03/06/2010 12:00:00 eCW2 ([facility] AM EDT [facility]) [facility] 03/05/2010 12:00:00 eCW2 ([facility] AM EDT [facility]) [facility] 02/28/2010 12:00:00 eCW2 ([facility] AM EDT [facility]) [facility] 02/27/2010 12:00:00 eCW2 ([facility] AM EDT [facility]) [facility] 01/07/2010 12:00:00 eCW2 ([facility] AM EDT [facility]) [facility] 12/13/2009 12:00:00 eCW2 ([facility] AM EDT [facility]) [facility] 09/10/2009 12:00:00 eCW2 ([facility] AM EDT [facility]) [facility] 09/06/2009 12:00:00 eCW2 ([facility] AM EDT [facility]) [facility] 09/05/2009 12:00:00 eCW2 ([facility] AM EDT [facility]) [facility] 06/15/2009 12:00:00 eCW2 ([facility] AM EST [facility]) [facility] 01/26/2009 12:00:00 eCW2 ([facility] 11/22/2008 12:00:00 eCW2 ([facility] AM EDT [facility]) Immunizations Vaccine Date Status Description Data Source(s) New in 2011. IIV4 07/11/2017 completed [facility] 01:18:00 PM EST Center Note that this vaccine 05/04/2016 completed [facility] Medical name has changed. See 03:04:00 PM EST Ce nter also Td (adult). It is not adsorbed. No Known Immunizations completed eCW2 ([facility]) Medications Medication Brand Start Product Dose Route Administrative Pharmacy at Indications Reaction Description Data Name Date Form Instructions Instructions Source(s) Paroxetine Paxil .0 Oral active NETS MART 10 MG Oral 2020 Table ([facility] 04[facility] [Paxil] 00 [facility] EDT [facility]) Paroxetine Paxil .0 Oral active NETS MART 10 MG Oral 2020 Table ([facility] 04:[facility] [Paxil] 00 AM [facility] ED[facility]) Naphazoline [...] Table ([facility] 05:00[facility] [Paxil] 00 AM [facility] EST Services) Paroxetine Paxil .0 Oral active NETS MART 10 MG Oral 2020 Table ([facility] 05:00: [facility] [Paxil] 00 AM Community EST Services) Acetaminoph [...] MG Oral 100 mg ([place] [facility] [Zoloft] [facility] Zoloft 100 Care) mg Iron [...] e CW2 0.5 MG [facility]opin[facility] Klonopin Care) 0.5 mg 3 ML HumaLO active sliding eCW2 Insulin G scale up to ([place] on Lispro 100 KwikPe 10 units Jomar er UNT/ML Pen n 100 Health Injector UNIT/M Care) [Humalog] L HumaLOG KwikPen 100 UNIT/ML aripiprazol Abilif active 1 tablet eCW2 e 10 MG y 10 (Polo Oral Tablet MG [facility] [Abilify] [facility] Abilify 10 Care) MG Losartan Losart 1.0 active Losartan eCW 3 Potassium an {tabl Potassium 50 ( Polo 50 MG Oral Potass et} MG [facility] Tablet ium 50 [facility] Care) Depo UNK active as directed eCW2 Provera ([facility] Injection [facility]) 150 MG/ML Depo UNK active as directed eCW2 Provera ([facility] Contrace[facility] Injection Care) 150 MG/ML Insurance Providers Payer name Policy type Policy ID Covered Covered constitution party's Policy P chas / Coverage constitution party ID relationship to [facility] Inf ormation type charles [facility] [place]ICA[place] [id number] [place] [id number] [facility] MEDICAID [id number] SP [id number] [facility] MEDICAID [id number] SP [id number] [place] [id number] PT [id number] [facility] O [id number] 01 [id number] 01 [id number] [facility] [id number] 01 [id number] HEALTH ACUTE Problems, Conditions, and Diagnoses Code Display Name Description Problem Type Effective Data Dates Source(s) N92.1 Menorrhagia with Menorrhagia with Problem 08/25/2019 eC W3 ([facility] irregular cycle irregular cycle 12:00:00 AM [facility] EDT Care) J45.40 Moderate persistent Moderate persistent Problem 020 eCW3 ([facility] asthma without asthma without 12:00:00 AM [facility] complication complication EST Care) G62.9 Polyneuropathy Polyneuropathy Problem 10/26/2018 eCW3 ( [facility] 12:00:00 AM [facility] EDT Care) I10 Essential Essential Problem 10/26/2018 eCW3 ([facility] hypertension hypertension 12:00:00 AM [facility] EDT Care) E66.01 Morbid obesity Morbid obesity Problem 10/26/2018 eCW3 ( [facility] 12:00:00 AM [facility] EDT Care) D64.9 Anemia Anemia, unspecified Problem 09/30/2018 eCW3 ([facility] 12:00:00 AM [facility] EDT Care) E11.9 Type II diabetes Type 2 diabetes Problem 09/30/2018 eCW 3 ([facility] mellitus without mellitus without 12:00:00 AM [facility] complication complications EDT Care) J45.909 Asthma without Unspecified asthma, Problem 09/30/2018 e CW3 ([facility] status asthmaticus uncomplicated 12:00:00 AM [facility] EDT Care) 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 019 NETSMART disorder disorder 04:00:00 AM ([facility]) [id number] Posttraumatic stress Posttraumatic Complaint 08/23/2018 N ETSMART disorder stress disorder 04:00:00 AM ([facility]) [id number] Panic disorder Panic disorder Complaint 08/23/2018 NETSMA RT without agoraphobia without agoraphobia 04:00:0 0 AM ([facility]) N92.1 Menometrorrhagia Menometrorrhagia Problem 10/13/2017 eC W2 ([facility]o 12:00:00 AM [facility] EDT Care) N93.9 Vaginal bleeding Vaginal bleeding Problem 10/06/2017 eC W2 ([facility] 12:00:00 AM [facility] EDT Care) E66.8 Obesity Other obesity Problem 10/06/2017 eCW2 ([facility] [facility] 12:00:00 AM [facility] EDT Care) 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 Problem 08/03/2017 eCW3 ([facility] use of insulin use of insulin 12:00:00 AM [facility] EDT Care) J45.41 Moderate persistent Moderate persistent Problem 018 eCW3 ([facility] asthma with acute asthma with acute 12:00:00 AM [facility] exacerbation exacerbation EDT Care) E11.65 Type 2 diabetes Type 2 diabetes Problem 08/03/2017 eCW3 ([facility] mellitus with mellitus with 12:00:00 AM [facility] hyperglycemia hyperglycemia EDT Care) J45.41 Moderate persistent Moderate persistent Problem 018 eCW2 ([facility] asthma with acute asthma with acute 12:00:00 AM [facility] exacerbation exacerbation EDT Care) E11.65 Type 2 diabetes Type 2 diabetes Problem 08/03/2017 eCW2 ([facility] mellitus with mellitus with 12:00:00 AM [facility] hyperglycemia hyperglycemia EDT Care) 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 [facility] current Problem 08/03/2017 eCW2 ([facility] use of insulin use of insulin 12:00:00 AM [facility] EDT Care) Q61.00 Renal cyst Renal cyst Problem 08/20/2016 eCW3 ([facility] 12:00:00 AM [facility] EDT Care) Q61.00 Renal cyst Renal cyst Problem 08/20/2016 eCW2 ([facility] 12:00:00 AM [facility] EDT Care) E11.9 Diabetes mellitus Type 2 diabetes Problem 08/20/2016 eC W2 ([facility] type 2 mellitus with goal 12:00:00 AM [facility] of symptom EDT Care) management G62.9 Peripheral Peripheral Problem 05/21/2016 eCW2 ([facility] neuropathy neuropathy 12:00:00 AM [facility] EST Care) K30 Dyspepsia Dyspepsia Problem 05/21/2016 eCW2 ([facility] 12:00:00 AM [facility] EST Care) E11.9 Diabetes mellitus Diabetes Problem 05/10/2015 eCW2 ([facility] without complication 12:00:00 AM [facility] EST Care) J45.901 Asthma exacerbation Asthma exacerbation Problem 015 eCW2 ([facility] 12:00:00 AM [facility] EDT Care) 590.80 Pyelonephritis Pyelonephritis Problem 06/27/2014 eCW2 ( [facility] 12:00:[address] [facility] Care) 493.92 Exacerbation of Asthma exacerbation Problem 10/25/2013 eCW2 ([facility] asthma 12:00:00 AM [facility] EDT Care) 477.9 Allergic rhinitis ALLERGIC RHINITIS Problem eCW2 ([facility] NOS [facility]) 285.9 Anemia Anemia Problem eCW2 ([facility]) 493.90 Asthma without Asthma Intermittent Problem e CW2 ([facility] status asthmaticus [facility]) 401.9 Essential Essential Problem eCW2 ([facility] hypertension Hypertension, [facility] Unspec Care) 791.0 Proteinuria Proteinuria Problem eCW2 ([facility]) 250.00 Diabetes mellitus Diabetes mellitus Problem eCW2 ([facility] type 2 type 2 [facility]) 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 Q61.02 Diagnosis 01/09/2020 [place] renal cysts 12:46:00 PM Hospital EDT N20.0 Calculus of kidney N20.0 Diagnosis 01/09/2020 [place] 12:46:00 PM Hospital EDT J90 Pleural effusion, J90 Diagnosis 01/09/2020 [place] not elsewhere 12:46:00 PM Hospital classified EDT I31.3 Pericardial effusion I31.3 Diagnosis 01/09/2020 [place] (noninflammatory) 12:46:00 PM Hospit al EDT I51.7 Cardiomegaly I51.7 Diagnosis 01/09/2020 [place] 12:46:00 PM Hospital EDT R91.8 Other nonspecific R91.8 Diagnosis 01/09/2020 [place] abnormal finding of 12:46:00 PM Hosp ital lung field EDT C53.9 Malignant neoplasm C53.9 Diagnosis 01/09/2020 [place] of cervix uteri, 12:46:00 PM Hospita l unspecified EDT Surgeries/Procedures Procedure Description Date Indications Data Source(s) CUL PRSMPTV PTHGNC 02/25/2018 eCW2 ([facility] ORGANISM SCRN W/COLONY 12:00:00 AM EDT He alth Care) ESTIMJ Results ID Date Data Source [id number] 02/04/2020 05:10:00 PM EDT [facility] Name Value Range Interpretation Description Data Sup porting Code Source(s) Document(s ) SARS [facility] coronavirus 2 RNA This lab was ordered by [facility] and reported by [facility]. ID Date Data Source [id number] 01/13/2020 10:30:00 AM EDT [facility] Name Value Range Interpretation Description Data Sup porting Code Source(s) Document(s ) SARS [facility] coronavirus 2 RNA This lab was ordered by [facility] and reported by [facility]. ID Date Data Source [id number] 12/26/2019 05:45:00 PM EDT [facility] Name Value Range Interpretation Description Data Sup porting Code Source(s) Document(s ) SARS [facility] coronavirus 2 RNA This lab was ordered by [facility] and reported by [facility]. ID Date Data Source [id number] 12/20/2019 06:45:00 PM EDT [facility] Name Value Range Interpretation Description Data Sup porting Code Source(s) Document(s ) SARS [facility] coronavirus 2 RNA This lab was ordered by [facility] and reported by [facility]. ID Date Data Source [id number] 11/17/2019 11:25:00 PM EDT [facility] Name Value Range Interpretation Description Data Sup porting Code Source(s) Document(s ) SARS [facility] CORONAVIRUS 2 RNA This lab was ordered by [facility] and reported by [facility]. ID Date Data Source [id number] 10/08/2019 03:15:00 PM EDT [facility] Name Value Range Interpretation Description Data Sup porting Code Source(s) Document(s ) SARS [facility] CORONAVIRUS 2 RNA This lab was ordered by [facility] and reported by [facility]. ID Date Data Source Liver Profile 07/11/2018 04:15:00 PM EST [facility] Name Value Range Interpretation Description Data [...] Data Source HematologyRou 07/11/2018 04:15:00 PM EST [facility] Name Value Range Interpretation Description Data [...] Date Data Source GFR(Creatinine) 07/11/2018 04:15:00 PM [facility] Name Value Range Interpretation Code Description Data Radha rce(s) Supporting Document(s ) UNK > 60 Below low normal <content [facility] styleCode="Bold"> Medical Cent er EGFR </content>39 GFR L<content styleCode="Italic s"> (> 60 GFR)</content> ID Date Data Source [id number] 07/11/2018 04:15:00 PM [facility] Name Value Range Interpretation Description Data Sup porting Code Source(s) Document(s ) Lipase 23-300 <content [facility] [Enzymatic styleCode="Bold Medical activity/vo ">Lipase Center lume] in </content>49 Serum or IU/L<content Plasma styleCode="Ital ics"> (23-300 IU/L)</content> ID Date Data Source BMP 07/11/2018 04:15:00 PM [facility] Name Value Range Interpretation Description [...] IU/L)</content> Alkaline 38-126 <content [facility] phosphatase styleCode="Bold"> [facility] [Enzymatic Alkaline Medical activity/volume] Phosphatase (ALP) Cente [...] Data Source Urinalysis 07/11/2018 03:50:00 PM EST [facility] Name Value Range Interpretation Description Data [...] by Test d">Urine Medical strip Specific Center [place] </content>1.02 5 NM<content styleCode="Cheryl lics"> (1.015-1.025 NM)</content> Ketones NEGATIVE <content [facility] [Mass/volume] styleCode="Antonietta Bhavani in Urine by d">Urine Medical Test strip [facility] </content>NEGA TIVE MG/DL<content styleCode="Cheryl lics"> (NEGATIVE MG/DL)</conten t> Hemoglobin NEGATIVE <content [facility] [Presence] in styleCode="Antonietta Carlsons Urine by Test d">Urine Blood Medical strip </content>MODE Center RATE <content styleCode="Cheryl lics"> (NEGATIVE )</content> pH of Urine by 4.5-8.0 <content [facility] Test strip styleCode="Antoniteta Bhavani d">Urine pH Medical </content>6.0 Center NM<content [...] GROUP A 02/25/2018 12:00:00 AM EDT eCW2 ([facility]A-HEMOLYT[facility]) Name Value Range Interpretation Description Data Sup porting Code Source(s) Document(s ) Streptococcus NEGATIVE NEGATIVE STREP, GRP.A, eCW2 pyogenes DNA (Polo [Presence] in [facility]) specific culture ID Date Data Source Rapid Strep A, In House.0 02/25/2018 12:00:00 AM EDT eCW2 ([facility]) Name Value Range Interpretation Description Data Sup porting Code Source(s) Document(s ) negative negative - Rapid Strep A eCW2 ([facility]) Procedure Social History Code Duration Value Status Description Data Source(s ) Smoking 09/08/2019 Former Smoker completed Former Smoker eCW3 ( dson 12:00:00 AM EDT [facility]) Smoking 07/11/2018 Former Smoker completed Former Smoker [facility] 03:39:00 PM EST Medical C enter Smoking 07/11/2018 Former Smoker completed Former Smoker [facility] 03:22:00 PM EST Medical C enter Smoking 07/11/2018 Former Smoker completed Former Smoker [facility] 02:52:00 PM EST Medical C enter Former Smoker completed Former Smoker eCW3 ([facility]) Smoking Unknown if ever completed Unknown if ever eCW2 ([facility]) Vital Signs ID Date Data Source UNK Name Value Range Interpretation Code Description Data Source(s) Diastolic blood 78 mm[Hg] 78 mm[Hg] eCW3 ([facility]) Systolic blood 123 mm[Hg] 123 mm[Hg] eCW3 ([facility]) Body temperature 97.6 [degF] 97.6 [degF] eCW3 ( [facility]) Heart rate 18 /min 18 /min eCW3 ([facility]) Body mass index 42.53 kg/m2 42.53 kg/m2 eCW3 (Amadeo moon (BMI) [Ratio] [facility]) Body weight 242.0 242.0 [lb_av] eCW3 ([facility] [lb_av] [facility]) Body height 63.25 [in_i] 63.25 [in_i] eCW3 ([facility]) Body temperature 37.594195 37.788456 Marit[facility] Respiratory rate 18 /min 18 /min [facility] Oxygen saturation 98 % 98 % [facility] in [facility] blood [facility] Center by Pulse oximetry Heart rate 82 /min 82 /min [facility] Diastolic blood 76 mm[Hg] 76 mm[Hg] [facility] Systolic blood 139 mm[Hg] 139 mm[Hg] [facility] Body temperature 36.324571 36.511022 Marit[facility] Respiratory rate 18 /min 18 /min [facility] Oxygen saturation 98 % 98 % [facility] in Arterial blood Medical Center by Pulse oximetry Heart rate 80 /min 80 /min [facility] Diastolic blood 78 mm[Hg] 78 mm[Hg] [facility] Center Systolic blood 140 mm[Hg] 140 mm[Hg] [facility] Body weight 92.473265 kg 92.663364 kg [facility] Body temperature 36.381876 36.044411 Maritza [facility] Respiratory rate 17 /min 17 /min [facility] Oxygen saturation 100 % 100 % [facility] Nikunj [facility] in Arterial blood [facility] Center by Pulse oximetry Heart rate 101 /min 101 /min [facility] Body height 162.940532 162.890867 cm [facility] Diastolic blood 75 mm[Hg] 75 mm[Hg] [facility] Center Systolic blood 137 mm[Hg] 137 mm[Hg] [facility] Body mass index 35.1 kg/m2 35.1 kg/m2 [facility] (BMI) [Ratio] Medical Maikol ter Diastolic blood 82 mm[Hg] 82 mm[Hg] eCW2 ([facility]) Systolic blood 129 mm[Hg] 129 mm[Hg] eCW2 ([facility]) Body temperature 100.4 [degF] 100.4 [degF] eCW2 ([facility]) Body mass index 37.42 kg/m2 37.42 kg/m2 eCW2 (H udson (BMI) [Ratio] [facility]) Body weight 218 [lb_av] 218 [lb_av] eCW2 ([facility]) Body height 64 [in_us] 64 [in_us] eCW2 ([facility]) Patient Treatment Plan of Care Planned Activity Planned Date Details Description Data Source (s) Naphazoline Hydrochloride 09/08/2019 12:00:00 eCW3 ([facility] 0.25 MG/ML / Pheniramine AM EDT [facility]) Maleate 3 MG/ML Ophthalmic Solution [Naphcon A]
[2020-02-17 16:52] LABS: BASO % 0.2 % (0-2.0); EOS % 0.8 % (0-4.5); HEMATOCRIT 27.5 % (32.4-45.2); HEMOGLOBIN 9.2 GM/dL (10.7-15.3); LYMPH % 5.9 % (8-40); MCH 29.2 pg (25.7-33.7); MCHC 33.6 g/dl (32.0-36.0); MEAN PLT VOLUME 8.2 fl (7.5-11.1); MONO % 7.2 % (3.8-10.2); NEUT % 85.9 % (42.8-82.8); PLATELET COUNT 86 K/MM3 (134-434); RBC 3.16 M/mm3 (3.60-5.2); WHITE BLOOD COUNT 6.3 K/mm3 (4.0-10.0)
[2020-02-17 17:23] LABS: ALBUMIN 1.9 g/dl (3.4-5.0); BILIRUBIN,TOTAL 0.3 mg/dL (0.2-1); BLOOD UREA NITROGEN 19.2 mg/dL (7-18); CALCIUM 7.6 mg/dL (8.5-10.1); CREATININE 3.2 mg/dL (0.55-1.3); MAGNESIUM 1.6 mg/dL (1.8-2.4); POTASSIUM 3.4 mmol/L (3.5-5.1); TOT PROT 5.5 g/dl (6.4-8.2)
--- NOTE | 2020-02-17 19:29 | PN ---
Teaching Attending Note Name of Resident: Ezequiel Shook ATTENDING PHYSICIAN STATEMENT I saw and evaluated the patient. I reviewed the resident's note and discussed the case with the resident. I agree with the resident's findings and plan as documented. SUBJECTIVE: Patient is a 39 year old woman with a PMH of Stage IIIB Cervical cancer (On chemotherapy - Carboplatin and radiotherapy), COVID-19 infection (September 2019), ADPKD, HPV+, Right kidney stent, Kidney stones, Menometrorrhagia, ESRD (hemodialysis via permacath //Thu), IDDM, Recurrent falls (walks with a cane), Asthma, Bipolar depression and Anxiety disorder who was sent for admission by the Oncologist to get PRBC transfusion and then hemodialysis. Was recently admitted on 02/04/2020 for a clotted dialysis permacath. Patient denies chest pain, shortness of breath, abdominal pain, headache, palpitations, dizziness, nausea, vomiting, diarrhea, constipation, dysuria, melena, hematochezia or hematuria. Former smoker. Denies alcohol, tobacco or illicit drug use. No sick contacts or recent travels. Patient has a family history of HTN, DM in father and kidney disease in mother and daughter has polycystic kidney disease. OBJECTIVE: Alert HEENT: No Jaundice, eye redness or discharge, PERRLA, EOMI. Normocephalic, atraumatic. External ears are normal and hearing is grossly intact. No nasal discharge. Neck: Supple, nontender. No palpable adenopathy or thyromegaly. No JVD Chest: Good effort. Clear to auscultation and percussion. Heart: Regular. No S3, rub or murmur Abdomen: Not distended, soft, nontender and no HSM. No rebound or guarding. Normal bowel sounds. Ext: Peripheral pulses intact. No leg edema. Skin: Warm and dry. No petechiae, rash or ecchymosis. Neuro: Alert. Oriented x3. CN 2-12 grossly intact. Sensation grossly intact in all four extremities and DTR are symmetric. Psych: Appropriate mood and affect. Good insight. Home Medications Medication Instructions Recorded Albuterol 0.083% Nebulizer Sarina 1 neb NEB Q6H PRN 10/06/17 [Ventolin 0.083% Nebulizer Soln -] Budesonide/Formeterol Fumarate 2 puff IH BID 10/06/17 [SYMBICORT 80/4.5mcg -] Insulin Glargine,Hum.rec.anlog 50 unit SQ BID 10/06/17 [Lantus] Insulin Lispro [Humalog] 30 unit SQ TID 04/18/18 Esomeprazole Magnesium [Nexium 40 mg PO DAILY 05/28/18 24Hr] Gabapentin [Neurontin] 600 mg PO TID 10/09/19 Sevelamer Carbonate [Renvela -] 800 mg PO TIDCM #90 tab 10/12/19 Paroxetine HCl [Paxil -] 10 mg PO DAILY 11/18/19 Acetaminophen [Tylenol 2 tab PO PRN 01/16/20 .Extra-Strength -] Oxycodone HCl [Roxicodone] 5 mg PO ASDIR 02/03/20 Ferrous Sulfate [Feosol] 325 mg PO DAILY 02/06/20 Folic Acid - 1 mg PO DAILY #30 tablet 02/06/20 Losartan Potassium 50 mg PO DAILY 02/06/20 Montelukast Sodium [Singulair] 10 mg PO DAILY 02/06/20 Abnormal Lab Results 02/17/20 02/17/20 02/17/20 16:11 16:11 16:11 RBC 3.16 L Hgb 9.2 L Hct 27.5 L RDW 16.0 H Plt Count 86 L Neutrophils % 85.9 H Lymphocytes % 5.9 L Potassium 3.4 L BUN 19.2 H Creatinine 3.2 H Random Glucose 143 H Calcium 7.6 L Magnesium 1.6 L AST 13 L ALT 10 L Total Protein 5.5 L Albumin 1.9 L Crossmatch See Detail Current Medications Generic Name Dose Route Start Last Admin Trade Name Freq PRN Reason Stop Dose Admin Insulin Aspart 1 vial 02/17/20 22:00 Novolog Vial Sliding Scale - SQ [facility] Protocol ASSESSMENT AND PLAN: 1. Anemia - Likely multifactorial. Getting PRBC transfusion prescribed by Heam/Onc. Will continue comprehensive care for all of patients comorbid conditions including cancer care. Recent anemia workup done. 2. Hypoalbuminemia - Possibly due to combined effects of malnutrition and inflammation associated with comorbid conditions. Will ensure adequate dietary protein intake and also consult branding machine tender. Urinalysis pending. 3. DM For now, we will hold the home diabetes drugs and implement sliding scale insulin regimen. Provide comprehensive diabetes care with patient teaching and counseling about the importance of adherence to prescribed diabetes regimen, euglycemia, eye care and foot care. 4. ESRD - Consult Nephrology for ESRD care. 5. DVT prophylaxis - Heparin 5000u sq tid. 6. Advance directives - Full code
--- NOTE | 2020-02-17 19:44 | HP ---
Satellite [facility] - Chief Complaint Chief Complaint: ere for elective transfusion of PRBCs. Denies fever/chils/cough/SOB/abdominal pain History Source: Patient - Past Medical History Allergies/Adverse Reactions: Allergies Allergy/AdvReac Type Severity Reaction Status Date / Time No Known Allergies Allergy Verified 02/04/20 16:20 Pulmonary: Yes: Asthma Renal/: Yes: Renal Inusuff, Hemodialysis, Other ...LMP: 01/22/20 Heme/Onc: Yes: Anemia Infectious Disease: Yes: Other (HPV+, COVID+ (3mo ago)) Endocrine: Yes: Diabetes Mellitus - Current Medications Current Medications: Home Medications Medication Instructions Recorded Albuterol 0.083% Nebulizer Sarina 1 neb NEB Q6H PRN 10/06/17 [Ventolin 0.083% Nebulizer Soln -] Budesonide/Formeterol Fumarate 2 puff IH BID 10/06/17 [SYMBICORT 80/4.5mcg -] Insulin Glargine,Hum.rec.anlog 50 unit SQ BID 10/06/17 [Lantus] Insulin Lispro [Humalog] 30 unit SQ TID 04/18/18 Esomeprazole Magnesium [Nexium 40 mg PO DAILY 05/28/18 24Hr] Gabapentin [Neurontin] 600 mg PO TID 10/09/19 Sevelamer Carbonate [Renvela -] 800 mg PO TIDCM #90 tab 10/12/19 Paroxetine HCl [Paxil -] 10 mg PO DAILY 11/18/19 Acetaminophen [Tylenol 2 tab PO PRN 01/16/20 .Extra-Strength -] Oxycodone HCl [Roxicodone] 5 mg PO ASDIR 02/03/20 Ferrous Sulfate [Feosol] 325 mg PO DAILY 02/06/20 Folic Acid - 1 mg PO DAILY #30 tablet 02/06/20 Losartan Potassium 50 mg PO DAILY 02/06/20 Montelukast Sodium [Singulair] 10 mg PO DAILY 02/06/20 Satellite Physical Exam - Physical Examination General Appearance: Alert & Oriented x3 Lung: Clear to auscultation Heart: Regular rate & rhythm, Normal S1, Normal S2 Abdomen: Soft, No tenderness Extremities: No edema Neurological: Intact Satellite Impression/Plan - Impression/Plan Impression: 40 y/o with ESRD, cervical cancer on carboplatin weekly with RT comes in for elective transfusion. For dialyss in am. consulted nephrology. continue home meds
[2020-02-17] MEDS ORDERED: MAGNESIUM 2GM/50ML STERILE WATER IVPB IVPB ONE (19:45)
--- NOTE | 2020-02-17 19:45 | HP ---
CHIEF COMPLAINT: continuation of medical management while under heme/onc service HISTORY OF PRESENT ILLNESS: 40 y/o female PMH ESRD on HD 2/2 PCKD, cervical cancer (on CTx, last dose 02/02), DM 1, Bipolar Disorder/Depression/Anxiety, asthma admitted for HD and blood transfusion. Pt known to heme/onc service and admitted for continuation of medical management. She offers no complaints this encounter. ROS neg. Recent Travel: denies PAST MEDICAL HISTORY: please see above PAST SURGICAL HISTORY: Laser surgery on right eye FAMILY HX: Strong family hx of ADPKD: mother, aunty, uncle and cousins. Aunt and uncle of complications. [employer]:, LMP was 3 weeks ago, lasted 10days Social History: Smoking: limited, about 3 cigarettes/day for 3 yrs, stopped 15yrs ago Alcohol: Occasionally about a bottle each time Drugs: Denies illicit drug use Allergies No Known Allergies Allergy (Verified 02/04/20 16:20) HOME MEDICATIONS: Medication Instructions Recorded Albuterol 0.083% Nebulizer Sarina 1 neb NEB Q6H PRN 10/06/17 [Ventolin 0.083% Nebulizer Soln -] Budesonide/Formeterol Fumarate 2 puff IH BID 10/06/17 [SYMBICORT 80/4.5mcg -] Insulin Glargine,Hum.rec.anlog 50 unit SQ BID 10/06/17 [Lantus] Insulin Lispro [Humalog] 30 unit SQ TID 04/18/18 Esomeprazole Magnesium [Nexium 40 mg PO DAILY 05/28/18 24Hr] Gabapentin [Neurontin] 600 mg PO TID 10/09/19 Sevelamer Carbonate [Renvela -] 800 mg PO TIDCM #90 tab 10/12/19 Paroxetine HCl [Paxil -] 10 mg PO DAILY 11/18/19 Acetaminophen [Tylenol 2 tab PO PRN 01/16/20 .Extra-Strength -] Oxycodone HCl [Roxicodone] 5 mg PO ASDIR 02/03/20 Ferrous Sulfate [Feosol] 325 mg PO DAILY 02/06/20 Folic Acid - 1 mg PO DAILY #30 tablet 02/06/20 Losartan Potassium 50 mg PO DAILY 02/06/20 Montelukast Sodium [Singulair] 10 mg PO DAILY 02/06/20 REVIEW OF SYSTEMS CONSTITUTIONAL: Absent: fever, chills, diaphoresis, generalized weakness, malaise, loss of appetite, weight change HEENT: Absent: rhinorrhea, nasal congestion, throat pain, throat swelling, difficulty swallowing, mouth swelling, ear pain, eye pain, visual changes CARDIOVASCULAR: Absent: chest pain, syncope, palpitations, irregular heart rate, lightheadedness, peripheral edema RESPIRATORY: Absent: cough, shortness of breath, dyspnea with exertion, orthopnea, wheezing, stridor, hemoptysis GASTROINTESTINAL: Absent: abdominal pain, abdominal distension, nausea, vomiting, diarrhea, constipation, melena, hematochezia GENITOURINARY: Absent: dysuria, frequency, urgency, hesitancy, hematuria, flank pain, genital pain MUSCULOSKELETAL: Absent: myalgia, arthralgia, joint swelling, back pain, neck pain SKIN: Absent: rash, itching, pallor HEMATOLOGIC/IMMUNOLOGIC: Absent: easy bleeding, easy bruising, lymphadenopathy, frequent infections ENDOCRINE: Absent: unexplained weight gain, unexplained weight loss, heat intolerance, cold intolerance NEUROLOGIC: Absent: headache, focal weakness or paresthesias, dizziness, unsteady gait, seizure, mental status changes, bladder or bowel incontinence PSYCHIATRIC: Absent: anxiety, depression, suicidal or homicidal ideation, hallucinations. PHYSICAL EXAMINATION GENERAL: Awake, alert, and fully oriented, in no acute distress. Obese. HEAD: Normal with no signs of trauma. EYES: Pupils equal, round and reactive to light, extraocular movements intact, sclera anicteric, conjunctiva clear. No lid lag. EARS, NOSE, THROAT: Ears normal, nares patent, oropharynx clear without exudates. Moist mucous membranes. NECK: Normal range of motion, supple without lymphadenopathy, JVD, or masses. LUNGS: Breath sounds equal, clear to auscultation bilaterally. No wheezes, and no crackles. No accessory muscle use. HEART: Regular rate and rhythm, normal S1 and S2 without murmur, rub or gallop. ABDOMEN: Soft, nontender, not distended, normoactive bowel sounds, no guarding, no rebound, no masses. No hepatomegaly or splenomegaly. MUSCULOSKELETAL: Normal range of motion at all joints. No bony deformities or tenderness. No CVA tenderness. UPPER EXTREMITIES: 2+ pulses, warm, well-perfused. No cyanosis. No clubbing. No peripheral edema. LOWER EXTREMITIES: 2+ pulses, warm, well-perfused. No calf tenderness. No peripheral edema. NEUROLOGICAL: Cranial nerves II-XII intact. Normal speech. Normal gait. PSYCHIATRIC: Cooperative. Good eye contact. Appropriate mood and affect. SKIN: Right chest HD access. LEFT chest picc line. Both no evidence of infection. Warm, dry, normal turgor, no rashes or lesions noted, normal capillary refill. Laboratory Results - last 24 hr 02/17/20 02/17/20 02/17/20 16:11 16:11 16:11 WBC 6.3 RBC 3.16 L Hgb 9.2 L Hct 27.5 L MCV 87.0 MCH 29.2 MCHC 33.6 RDW 16.0 H Plt Count 86 L MPV 8.2 Absolute Neuts (auto) 5.5 Neutrophils % 85.9 H Lymphocytes % 5.9 L Monocytes % 7.2 Eosinophils % 0.8 Basophils % 0.2 Nucleated RBC % 0 Sodium 138 Potassium 3.4 L Chloride 103 Carbon Dioxide 27 Anion Gap 8 BUN 19.2 H Creatinine 3.2 H Est GFR (CKD-EPI)AfAm 20.14 Est GFR (CKD-EPI)NonAf 17.38 Random Glucose 143 H Calcium 7.6 L Magnesium 1.6 L Total Bilirubin 0.3 AST 13 L ALT 10 L Alkaline Phosphatase 93 Total Protein 5.5 L Albumin 1.9 L Blood Type O POSITIVE Antibody Screen Negative Crossmatch See Detail ASSESSMENT/PLAN: 40 y/o female PMH ESRD on HD 2/2 PCKD, cervical cancer (on CTx, last dose 02/02), DM 1, Bipolar Disorder/Depression/Anxiety, asthma admitted for HD and blood transfusion. # Anemia - likely multifactorial, ESRD vs CTx. - No evidence of acute blood loss - Please see heme/onc recommendations # ESRD on HD TTS (sec to PCKD) with blocked HD catheter - For HD Thursday -Continue Sevelemer. # Thrombocytopenia - likely due to CTx. Will monitor. # DM 1 - Resume Lantus/Lispro on discharge. # HTN - Continue Losartan # Cervical Ca, Stage IIIB - Actively undergoing CTx, last session 02/01 - Hem/Onc consulted for ongoing oncology care. # Bipolar Disorder/Depression/Anxiety - Continue Paroxetine. # Asthma - Albuterol PRN # FEN - PO - Cont. to monitor - DM, low sodium diet # DVT ppx - SCD # Disposition - Admit to med/surg Family Medical History Family History: As Documented Visit type - Emergency Visit Emergency Visit: No - New Patient This patient is new to me today: Yes Date on this admission: 02/18/20 - Critical Care Critical Care patient: No ATTENDING PHYSICIAN STATEMENT I saw and evaluated the patient. I reviewed the resident's note and discussed the case with the resident. I agree with the resident's findings and plan as documented. SUBJECTIVE: OBJECTIVE: ASSESSMENT AND PLAN:
[2020-02-17] MEDS ORDERED: MAGNESIUM 1GM/D5W - 1 GM/100 ML IVPB IVPB ONE (21:11)
[2020-02-17] MEDS ORDERED: POTASSIUM CHLORIDE TABS 10 MEQ TABLET.ER (FP) PO ONE (21:12)
[2020-02-17] MEDS: INSULIN SLIDING SCALE (NOVOLOG) 1 VIAL SQ SCH (22:47)
[2020-02-18] MEDS: INSULIN SLIDING SCALE (NOVOLOG) 1 VIAL SQ SCH ×4 (05:59→22:25)
[2020-02-18 07:46] LABS: BASO % 0.5 % (0-2.0); EOS % 1.4 % (0-4.5); HEMATOCRIT 29.6 % (32.4-45.2); HEMOGLOBIN 10.1 GM/dL (10.7-15.3); MCH 29.8 pg (25.7-33.7); MEAN CELL VOLUME 87.7 fl (80-96); MEAN PLT VOLUME 8.2 fl (7.5-11.1); MONO % 8.3 % (3.8-10.2); NEUT % 83.8 % (42.8-82.8); PLATELET COUNT 78 K/MM3 (134-434); RBC 3.37 M/mm3 (3.60-5.2); RDW 15.4 % (11.6-15.6); WHITE BLOOD COUNT 5.4 K/mm3 (4.0-10.0)
[2020-02-18 07:59] LABS: ALBUMIN 1.8 g/dl (3.4-5.0); BILIRUBIN,TOTAL 0.4 mg/dL (0.2-1); BLOOD UREA NITROGEN 28.8 mg/dL (7-18); CALCIUM 7.1 mg/dL (8.5-10.1); CREATININE 3.9 mg/dL (0.55-1.3); POTASSIUM 3.7 mmol/L (3.5-5.1)
[2020-02-18 09:58] LABS: MAGNESIUM 1.6 mg/dL (1.8-2.4)
[2020-02-18] MEDS ORDERED: PATIENT'S OWN MEDICATION (NON-FORMULARY) (Esomeprazole Magnesium [Nexium 24hr] 40 MG) PO SCH (10:00)
[2020-02-18] MEDS ORDERED: MAGNESIUM SULF 50% (8.12 MEQ/2 ML-1 GM VIAL) IVPB ONE (10:01)
[2020-02-18] MEDS ORDERED: MAGNESIUM SULFATE IN WATER 2 GM/50 ML IVPB IVPB ONE (10:15)
[2020-02-18] MEDS: PANTOPRAZOLE 40 MG TABLET PO SCH (10:57)
[2020-02-18] MEDS: MONTELUKAST NA 10 MG TABLET PO SCH (10:57)
[2020-02-18] MEDS: PARoxetine HCL 10 MG TABLET PO SCH (10:59)
--- NOTE | 2020-02-18 11:13 | CON.NEP ---
Consult Consult Specialty:: nephrology Reason for Consultation:: esrd - History of Present Illness Chief Complaint: needed blood transfusion History of Present Illness: 40 y/o female PMH ESRD on HD 2/2 PCKD, cervical cancer (on CTx, last dose 02/02), DM 1, Bipolar Disorder/Depression/Anxiety, asthma admitted for HD and blood transfusion. Pt known to heme/onc service and admitted for continuation of medical management. She denies bleeding but does say she had chemotherapy recently. Feels well other than some discomfort in right IJ area. Her catheter was just changed this past week. - History Source History Provided By: Patient Limitations to Obtaining History: No Limitations - Past Medical History Pulmonary: Yes: Asthma Renal/: Yes: Renal Inusuff, Hemodialysis, Other ...LMP: 01/22/20 Infectious Disease: Yes: Other (HPV+, COVID+ (3mo ago)) Psych: Yes: Anxiety, Bipolar Endocrine: Yes: Diabetes Mellitus - Past Surgical History Past Surgical History: Yes: - Alcohol/Substance Use Hx Alcohol Use: No History of Substance Use: reports: None - Smoking History Smoking history: Never smoked Have you smoked in the past 12 months: No Aproximately how many cigarettes per day: 3 If you are a former smoker, when did you quit?: 2004 - Social History Usual Living Arrangement: With Child (Age 10, 17) History of Recent Travel: No Home Medications - Allergies Allergies/Adverse Reactions: Allergies Allergy/AdvReac Type Severity Reaction Status Date / Time No Known Allergies Allergy Verified 02/04/20 16:20 - Home Medications Home Medications: Ambulatory Orders Albuterol 0.083% Nebulizer Sarina [Ventolin 0.083% Nebulizer Soln -] 1 neb NEB Q6H PRN 10/06/17 Budesonide/Formeterol Fumarate [SYMBICORT 80/4.5mcg -] 2 puff IH BID 10/06/17 Insulin Glargine,Hum.rec.anlog [Lantus] 50 unit SQ BID 10/06/17 Insulin Lispro [Humalog] 30 unit SQ TID 04/18/18 Esomeprazole Magnesium [Nexium 24Hr] 40 mg PO DAILY 05/28/18 Gabapentin [Neurontin] 600 mg PO TID 10/09/19 Sevelamer Carbonate [Renvela -] 800 mg PO TIDCM #90 tab 10/12/19 Paroxetine HCl [Paxil -] 10 mg PO DAILY 11/18/19 Acetaminophen [Tylenol .Extra-Strength -] 2 tab PO PRN 01/16/20 Oxycodone HCl [Roxicodone] 5 mg PO ASDIR 02/03/20 Ferrous Sulfate [Feosol] 325 mg PO DAILY 02/06/20 Folic Acid - 1 mg PO DAILY #30 tablet 02/06/20 Losartan Potassium 50 mg PO DAILY 02/06/20 Montelukast Sodium [Singulair] 10 mg PO DAILY 02/06/20 Review of Systems - Review of Systems Constitutional: reports: No Symptoms Eyes: reports: No Symptoms HENT: reports: No Symptoms Neck: reports: Tenderness Cardiovascular: reports: No Symptoms Respiratory: reports: No Symptoms Gastrointestinal: reports: No Symptoms Genitourinary: reports: No Symptoms Breasts: reports: No Symptoms Reported Musculoskeletal: reports: No Symptoms Integumentary: reports: No Symptoms Neurological: reports: No Symptoms Endocrine: reports: No Symptoms Hematology/Lymphatic: reports: No Symptoms Psychiatric: reports: No Symptoms Nephrology Consult - Height Height: 5 ft 6 in - Weight Weight: 224 lb 4 oz - BMI Body Mass Index (BMI): 36.1 - Lab Results CBC,BMP: CBC, BMP 02/18/20 06:47 02/18/20 06:47 Anion Gap: Anion Gap Anion Gap 6 MMOL/L (8-16) L 02/18/20 06:47 - Physical Examination Vital Signs: Vital Signs Temperature 98.2 F 02/18/20 01:49 Pulse Rate 82 02/18/20 01:49 Respiratory Rate 18 02/18/20 01:49 Blood Pressure 129/72 02/18/20 01:49 O2 Sat by Pulse Oximetry (%) 95 02/18/20 01:49 Constitutional: Yes: Well Nourished, No Distress, Calm Eyes: Yes: Conjunctiva Clear HENT: Yes: Atraumatic, Normocephalic Neck: Yes: Supple, Trachea Midline Respiratory: Yes: Regular, CTA Bilaterally Gastrointestinal: Yes: Normal Bowel Sounds Access for Hemodialysis: Permacath Musculoskeletal: Yes: WNL Extremities: Yes: WNL Edema: No Peripheral Pulses WNL: Yes Neurological: Yes: Alert, Oriented Psychiatric: Yes: Alert, Oriented Assessment/Plan IMPRESSION ESRD ANEMIA HTN CERVICAL Ca CORRECTED CALCIUM IS NORMAL PLAN will order hd for today hgb is above 10 so will not need further transfusion MV
[2020-02-18] MEDS ORDERED: SODIUM CHLORIDE 250 ML IV PRN ×2 (11:21→11:27)
[2020-02-18] MEDS ORDERED: PT OWN MED DRAWER 7, Y5N ONE (11:30)
--- NOTE | 2020-02-18 12:23 | DS ---
Physical Exam: SUBJECTIVE: Patient seen and examined OBJECTIVE: Vital Signs Period Temp Pulse Resp BP Sys/Farah Pulse Ox Last 24 Hr 98.2 F-99 F 82-86 18-18 120-129/72-77 95-95 PHYSICAL EXAM GENERAL: The patient is awake, alert, and fully oriented, in no acute distress. HEAD: Normal with no signs of trauma. EYES: PERRL, extraocular movements intact, sclera anicteric, conjunctiva clear. ENT: Ears normal, nares patent, oropharynx clear without exudates, moist mucous membranes. NECK: Trachea midline, full range of motion, supple. LUNGS: Breath sounds equal, clear to auscultation bilaterally, no wheezes, no crackles, no accessory muscle use. HEART: Regular rate and rhythm, S1, S2 without murmur, rub or gallop. ABDOMEN: Soft, nontender, nondistended, normoactive bowel sounds, no guarding, no rebound, no hepatosplenomegaly, no masses. EXTREMITIES: 2+ pulses, warm, well-perfused, no edema. NEUROLOGICAL: Cranial nerves II through XII grossly intact. Normal speech, gait not observed. PSYCH: Normal mood, normal affect. SKIN: Warm, dry, normal turgor, no rashes or lesions noted. LABS Laboratory Results - last 24 hr 02/17/20 02/17/20 02/17/20 16:11 16:11 16:11 WBC 6.3 RBC 3.16 L Hgb 9.2 L Hct 27.5 L MCV 87.0 MCH 29.2 MCHC 33.6 RDW 16.0 H Plt Count 86 L MPV 8.2 Absolute Neuts (auto) 5.5 Neutrophils % 85.9 H Lymphocytes % 5.9 L Monocytes % 7.2 Eosinophils % 0.8 Basophils % 0.2 Nucleated RBC % 0 Sodium 138 Potassium 3.4 L Chloride 103 Carbon Dioxide 27 Anion Gap 8 BUN 19.2 H Creatinine 3.2 H Est GFR (CKD-EPI)AfAm 20.14 Est GFR (CKD-EPI)NonAf 17.38 POC Glucometer Random Glucose 143 H Calcium 7.6 L Magnesium 1.6 L Total Bilirubin 0.3 AST 13 L ALT 10 L Alkaline Phosphatase 93 Total Protein 5.5 L Albumin 1.9 L Blood Type O POSITIVE Antibody Screen Negative Crossmatch See Detail 02/17/20 02/18/20 02/18/20 21:53 05:57 06:47 WBC RBC Hgb Hct MCV MCH MCHC RDW Plt Count MPV Absolute Neuts (auto) Neutrophils % Lymphocytes % Monocytes % Eosinophils % Basophils % Nucleated RBC % Sodium 138 Potassium 3.7 Chloride 106 Carbon Dioxide 26 Anion Gap 6 L BUN 28.8 H Creatinine 3.9 H Est GFR (CKD-EPI)AfAm 15.86 Est GFR (CKD-EPI)NonAf 13.68 POC Glucometer 174 123 Random Glucose 129 H Calcium 7.1 L Magnesium 1.6 L Total Bilirubin 0.4 AST 11 L ALT 10 L Alkaline Phosphatase 90 Total Protein 5.0 L Albumin 1.8 L Blood Type Antibody Screen Crossmatch 02/18/20 06:47 WBC 5.4 RBC 3.37 L Hgb 10.1 L Hct 29.6 L MCV 87.7 MCH 29.8 MCHC 34.0 RDW 15.4 Plt Count 78 L MPV 8.2 Absolute Neuts (auto) 4.5 Neutrophils % 83.8 H Lymphocytes % 6.0 L Monocytes % 8.3 Eosinophils % 1.4 Basophils % 0.5 Nucleated RBC % 0 Sodium Potassium Chloride Carbon Dioxide Anion Gap BUN Creatinine Est GFR (CKD-EPI)AfAm Est GFR (CKD-EPI)NonAf POC Glucometer Random Glucose Calcium Magnesium Total Bilirubin AST ALT Alkaline Phosphatase Total Protein Albumin Blood Type Antibody Screen Crossmatch HOSPITAL COURSE: Date of Admission:02/17/20 Date of Discharge: 02/18/20 Discharge Summary Reason For Visit: ANEMIA - Instructions - Home Medications Comprehensive Discharge Medication List: Ambulatory Orders Albuterol 0.083% Nebulizer Sarina [Ventolin 0.083% Nebulizer Soln -] 1 neb NEB Q6H PRN 10/06/17 Budesonide/Formeterol Fumarate [SYMBICORT 80/4.5mcg -] 2 puff IH BID 10/06/17 Insulin Glargine,Hum.rec.anlog [Lantus] 50 unit SQ BID 10/06/17 Insulin Lispro [Humalog] 30 unit SQ TID 04/18/18 Esomeprazole Magnesium [Nexium 24Hr] 40 mg PO DAILY 05/28/18 Gabapentin [Neurontin] 600 mg PO TID 10/09/19 Sevelamer Carbonate [Renvela -] 800 mg PO TIDCM #90 tab 10/12/19 Paroxetine HCl [Paxil -] 10 mg PO DAILY 11/18/19 Acetaminophen [Tylenol .Extra-Strength -] 2 tab PO PRN 01/16/20 Oxycodone HCl [Roxicodone] 5 mg PO ASDIR 02/03/20 Ferrous Sulfate [Feosol] 325 mg PO DAILY 02/06/20 Folic Acid - 1 mg PO DAILY #30 tablet 02/06/20 Losartan Potassium 50 mg PO DAILY 02/06/20 Montelukast Sodium [Singulair] 10 mg PO DAILY 02/06/20
[2020-02-18] MEDS: BUDESONIDE/FORMETEROL FUMARATE 80/4.5 mcg INHALER IH SCH ×2 (12:25→22:27)
--- NOTE | 2020-02-18 14:19 | PN ---
Progress Note (short form) - Note Progress Note: S: Pt [place] due to PRBC infusion and dialysis. During dialysis today patient noted to have nonfunctional permacath. Pt willing to stay until Thursday for permacath exchange Vital Signs Temperature 98.8 F 02/18/20 14:58 Pulse Rate 88 02/18/20 14:58 Respiratory Rate 18 02/18/20 14:58 Blood Pressure 155/86 02/18/20 14:58 O2 Sat by Pulse Oximetry (%) 95 02/18/20 01:49 PE: Gen: NAD, awake, alert HEENT: Nc/AT, EOMIm, AZUCENA, MMM Neck: R permacath noted w/o erythema or discharge, L chemoport without any o verlying skin changes LUNG: CTA b/l without wheezes or rales CARD: RRR no murmurs noted ABD: Soft, Nt/ND, + BS EXT: No edema CBC, BMP 02/18/20 06:47 02/18/20 06:47 Active Medications Budesonide/Formoterol Fumarate (Symbicort 80/4.5mcg -) 2 puff IH BID [facility] Last Admin: 02/18/20 12:25 Dose: 2 inh Documented by: Gabapentin (Neurontin -) 600 mg PO TID [facility] Last Admin: 02/18/20 15:24 Dose: 600 mg Documented by: Sodium Chloride (Normal Saline -) 250 mls @ 3,000 mls/hr IV PRN PRN PRN Reason: Hypotension during Dialysis Insulin Aspart (Novolog Vial Sliding Scale -) 1 vial SQ ACHS [facility]; Protocol Last Admin: 02/18/20 12:26 Dose: 2 units Documented by: Montelukast Sodium (Singulair -) 10 mg PO DAILY [facility] Last Admin: 02/18/20 10:57 Dose: 10 mg Documented by: Pantoprazole Sodium (Protonix -) 40 mg PO DAILY [facility] Last Admin: 02/18/20 10:57 Dose: 40 mg Documented by: Paroxetine HCl (Paxil -) 10 mg PO DAILY [facility] Last Admin: 02/18/20 10:59 Dose: 10 mg Documented by: Assessment and Plan: Nonfunctional Permacath ESRD on HD Cervical Ca receiving chemotherapy Normocytic anemia s/p Transfusion DM Bipolar disorder with depression History of Asthma, not in exacerbation --Permacath questionable clotting --For exchanged Thursday discussed with vascular --NPO after midnight on Thursday --Holding all AC including PPX dosing --Will discuss with hem/onc if patient should be on AC due to hypercoaguable state 2/2 malignancy --Dialysis could not be initiated today --Monitor electrolytes and uremia --Symbicort and albuterol inhalers to continue --Protonix qdaily --Paxil qdaily Dispo: Monitor M/S; permacath exchange thursday DO Yulisa Wan IM
[2020-02-18] MEDS: GABAPENTIN 300 MG CAPSULE PO SCH ×2 (15:24→22:26)
[2020-02-18] MEDS ORDERED: INSULIN (NOVOLOG) ASPART 100 UNITS/ML 10ML VIAL ONE (22:15)
[2020-02-18] MEDS ORDERED: ACETAMINOPHEN 1000 MG/100 ML VIAL (NON FORMULARY) IVPB ONE (23:03)
--- NOTE | 2020-02-19 00:59 | PN.HO ---
Progress Note (short form) - Note Progress Note: Patient seen and examined Feels well Some abdominal bloating AFVSS Cor: RSR, No murmurs, No gallops Lungs: Clear to P&A Abd: Soft, Normal bowel sounds, No organomegaly Ext:No significant edema Labs/MEds reviewed A/P 40 y/o with DM, HTN< ESRD, cervical cancer on carboplatin weekly with RT comes in for elective transfusion. For dialysis
[2020-02-19] MEDS: INSULIN SLIDING SCALE (NOVOLOG) 1 VIAL SQ SCH ×4 (06:15→22:22)
[2020-02-19] MEDS: GABAPENTIN 300 MG CAPSULE PO SCH ×3 (06:16→22:21)
[2020-02-19 07:52] LABS: HEMATOCRIT 28.9 % (32.4-45.2); HEMOGLOBIN 9.6 GM/dL (10.7-15.3); MCH 29.1 pg (25.7-33.7); MCHC 33.3 g/dl (32.0-36.0); MEAN CELL VOLUME 87.5 fl (80-96); MEAN PLT VOLUME 7.9 fl (7.5-11.1); PLATELET COUNT 83 K/MM3 (134-434); RDW 15.9 % (11.6-15.6); WHITE BLOOD COUNT 4.1 K/mm3 (4.0-10.0)
[2020-02-19 08:22] LABS: BLOOD UREA NITROGEN 36.7 mg/dL (7-18); CALCIUM 7.4 mg/dL (8.5-10.1); CREATININE 4.4 mg/dL (0.55-1.3); MAGNESIUM 1.9 mg/dL (1.8-2.4); POTASSIUM 3.6 mmol/L (3.5-5.1)
--- OUTSIDE RECORDS SUMMARY | 2020-02-19 08:22 | XMS ---
:1980 Author Organization [facility] Care Team Providers Name Role Phone [id number], [id number] Unavailable Unavailable Re-disclosure Warning The records that [...] is protected by Article 27-F of the [place] Public Health law. If you continue you may haveaccess to information: Regarding HIV / AIDS; Provided by facilities licensed or operated by the [facility] Office of Mental Health; or Provided by the [facility] Office for People With Developmental Disabilities. If such information is present, then the following [facility] mandated warning applies: This information has been [...] law may result in a fine or long term sentence or both. A general authorization for the release of medical or other information is NOT sufficient authorization for further disclosure. Allergies and Adverse Reactions Type Description Substance Reaction Status Data Source(s ) Drug allergy Augmentin Amoxicillin 500 MG rash Active eCW2 ([place] / Clavulanate 125 [facility] ealth MG Oral Tablet Care) [Augmentin] Food allergy No Known Food No Known Food [facility] Drug allergy No Known Drug No Known Drug [facility] Drug allergy Augmentin Amoxicillin / rash Active eCW3 ([facility] Clavulanate [facility]) Encounters Encounter Providers Location Date Indications Data Source(s ) Outpatient 01/09/2020 12:46:00 CERVICAL CA [facility] PM EDT CERVICAL CA Outpatient Att[facility] 08/03/2019 04:32:19 PM [facility] EDT [facility]) Patient admitted. Outpatient Attender: [facility] 08/03/2019 04:32:06 PM [facility]T [facility]) Patient admitted. Outpatient Att[facility] 08/03/2019 04:31:35 PM [facility] EDT Collabor[facility]) Patient admitted. Outpatient [facility] 10/26/2018 12:00:00 eCW3 ([facility] A28 AM EDT - 10/26/2018 [facility] 12:00:00 AM EDT Care) Emergency H 07/11/2018 02:46:00 [facility] 05/08/2018 12:00:0 0 eCW2 ([facility] AM EST [facility] 05/07/2018 12:00:00 eCW2 ([facility] EST [facility] 04/17/2018 12:00: 00 eCW2 ([facility] AM EST [facility] 03/23/2018 12:00: 00 eCW2 ([facility] AM EDT [facility] Janeen [place] 02/25/2018 12:00:00 eCW2 ([facility] AM EDT [facility]) Silvia Freemanleopoldo [place] 02/12/2018 12:00: 00 eCW2 ([facility] AM EDT [facility] Silvia Freemanleopoldo Yu 01/20/2018 12:00: 00 eCW2 ([facility] AM EDT [facility]) Silvia Freemanleopoldo Yu 10/26/2017 12:00: 00 eCW2 ([facility] AM EDT [facility]) Silvia Pachecomonica Yu 10/13/2017 12:00: 00 eCW2 ([facility] AM EDT [facility]) Silvia Pachecomonica Yu 10/09/2017 12:00: 00 eCW2 ([facility] AM EDT [facility]) Silvia Pachecomonica Yu 10/06/2017 12:00: 00 eCW2 ([facility] AM EDT [facility]) Silvia Freemanleopoldo Yu 10/02/2017 12:00: 00 eCW2 ([facility] AM EDT [facility]) Silvia Pachecomonica Yu 08/06/2017 12:00: 00 eCW2 ([facility] AM EDT [facility]) Silvia De Paznjayce Pachecomonica [place] 08/04/2017 12:00: 00 eCW2 ([facility] AM EDT [facility]) Silvia De Paznjayce Pachecomonica [place] 08/03/2017 12:00: 00 eCW2 ([facility] AM EDT [facility]) [place]via [place] Janeen Yu 06/29/2017 12:00: 00 eCW2 ([facility] AM EST [facility]) Silvia Freemanleopoldo Yu 06/25/2017 12:00: 00 eCW2 ([facility] AM EST [facility]) [place] Yu 04/07/2017 12:00: 00 eCW2 ([facility] AM EST [facility]) Silvia Pachecomonica Yu 03/26/2017 12:00: 00 eCW2 ([facility] AM EDT [facility]) [place] Pache[place] Yu 12/26/2016 12:00: 00 eCW2 ([facility] AM EDT [facility]) [place] Yu 08/20/2016 12:00: 00 eCW2 ([facility] AM EDT [facility]) [place] Yu 06/10/2016 12:00: 00 eCW2 ([facility] AM EST [facility]) [place] Yu 05/21/2016 12:00: 00 eCW2 ([facility] AM EST [facility]) [place] Yu 04/23/2016 12:00: 00 eCW2 ([facility] AM EST [facility]) [place] Yu 04/09/2016 12:00: 00 eCW2 ([facility] AM EST [facility]) [place] Yu 03/11/2016 12:00: 00 eCW2 ([facility] AM EDT [facility]) [place] Janeen Yu 02/29/2016 12:00: 00 eCW2 ([facility] AM EDT [facility]) [place] Janeen Yu 02/28/2016 12:00: 00 eCW2 ([facility] AM EDT [facility]) [place] Yu 02/06/2016 12:00: 00 eCW2 ([facility] AM EDT [facility]) Silvia Freemanleopoldo [place] 12/26/2015 12:00: 00 eCW2 ([facility] AM EDT [facility]) Silvia Freemanleopoldo [place] 12/26/2015 12:00: 00 eCW2 ([facility] AM EDT [facility]) Silvia Pachecomonica Yu 12/20/2015 12:00: 00 eCW2 ([facility] AM EDT [facility]) Silvia Freemanleopoldo Yu 12/20/2015 12:00: 00 eCW2 ([facility] AM EDT [facility]) Silvia Pachecomonica Yu 06/08/2015 12:00: 00 eCW2 ([facility] AM EST [facility]) [place] Yu 05/10/2015 12:00: 00 eCW2 ([facility] AM EST [facility]) [place] Yu 03/22/2015 12:00: 00 eCW2 ([facility] AM EDT [facility]) [place] Yu 03/14/2015 12:00: 00 eCW2 ([facility] AM EDT [facility]) Silvia Pachecomonica Yu 01/12/2015 12:00: 00 eCW2 ([facility] AM EDT [facility]) Silvia Pachecomonica [place] 12/21/2014 12:00: 00 eCW2 ([facility] AM EDT [facility]) Silvia Workman Janeen [place] 10/03/2014 12:00: 00 eCW2 ([facility] AM EDT [facility]) [place] Janeen Yu 07/24/2014 12:00: 00 eCW2 ([facility] AM EST [facility]) [facility] 07/21/2014 12:00:00 eCW2 ([facility] AM EST [facility]) [facility] 06/27/2014 12:00: 00 eCW2 ([facility] AM EST [facility]) [facility] 05/15/2014 12:00: 00 eCW2 ([facility] AM EST [facility]) [facility] 05/13/2014 12:00: 00 eCW2 ([facility] AM EST [facility]) [facility] 05/08/2014 12:00: 00 eCW2 ([facility] AM EST [facility]) [facility] 04/17/2014 12:00: 00 eCW2 ([facility] AM EST [facility]) [facility] 04/14/2014 12:00: 00 eCW2 ([facility] AM EST [facility]) [facility] 04/13/2014 12:0 0:00 eCW2 ([facility] AM EST [facility]) [facility] 04/05/2014 12:0 0:00 eCW2 ([facility] AM EST [facility]) [facility] 03/17/2014 12:00: 00 eCW2 ([facility] AM EDT [facility]) [facility] 03/14/2014 12:00: 00 eCW2 ([facility] AM EDT [facility]) [facility] 01/20/2014 12:00: 00 eCW2 ([facility] AM EDT [facility]) [facility] 01/18/2014 12:0 0:00 eCW2 ([facility] AM EDT [facility]) Silvia Freemanleopoldo Yu 01/05/2014 12:00: 00 eCW2 ([facility] AM EDT [facility]) Silvia Pachecomonica Yu 10/25/2013 12:00: 00 eCW2 ([facility] AM EDT [facility]) Silvia Pachecomonica Yu 09/27/2013 12:00: 00 eCW2 ([facility] AM EDT [facility]) [place] P[place] Yu 08/05/2013 12:00: 00 eCW2 ([facility] AM EDT [facility]) [place] Yu 07/21/2013 12:00: 00 eCW2 ([facility] AM EST [facility]) [place] Yu 07/01/2013 12:00: 00 eCW2 ([facility] AM EST [facility]) [place] Yu 06/30/2013 12:00: 00 eCW2 ([facility] AM EST [facility]) [place] Yu 06/09/2013 12:00: 00 eCW2 ([facility] AM EST [facility]) Silvia Pachecomonica Yu 05/16/2013 12:00: 00 eCW2 ([facility] AM EST [facility]) [place] Yu 02/22/2013 12:00: 00 eCW2 ([facility] AM EDT [facility]) Silvia Workman Janeen Yu 01/03/2013 12:00: 00 eCW2 ([facility] AM EDT [facility]) Silvia [place] Janeen Yu 12/01/2012 12:00: 00 eCW2 ([facility] AM EDT [facility]) [place] 11/03/2012 12:00: 00 eCW2 ([facility] AM EDT [facility]) [place] [place] 09/30/2012 12:00: 00 eCW2 ([facility] AM EDT [facility]) Silvia [place] 09/21/2012 12:00: 00 eCW2 ([facility] AM EDT [facility]) [place] 09/17/2012 12:00: 00 eCW2 ([facility] AM EDT [facility]) [place] 09/10/2012 12:00: 00 eCW2 ([facility] AM EDT [facility]) [place] 06/30/2012 12:00: 00 eCW2 ([facility] AM EST [facility] Jacinta Freemann [place] 03/04/2012 12:00: 00 eCW2 ([facility] AM EDT [facility] [place] 02/19/2012 12:00:00 eCW2 ([facility] AM EDT [facility]) [facility] [place] 01/16/2012 12:00:00 eCW2 ([facility] AM EDT [facility]) [facility] [place] 01/15/2012 12:00:00 eCW2 ([facility]/11[facility]2011 12:00:00 eCW2 ([facility] AM EDT [facility]) [facility] Jacinta Freemann [place] 07/15/2011 12:00: 00 eCW2 ([facility] AM EST [facility]) [facility] Jacinta Pachecolyn [place] 07/12/2011 12:00: 00 eCW2 ([facility] AM EST [facility]) [facility] 12/03/2010 12:00:00 eCW2 ([facility] AM EDT [facility]) [facility] 11/19/2010 12:00:00 eCW2 ([facility] AM EDT [facility]) [facility] 11/18/2010 12:00:00 eCW2 ([facility] AM EDT [facility]) [facility] 08/26/2010 12:00:00 eCW2 ([facility] AM EDT [facility]) [facility] 08/23/2010 12:00:00 eCW2 ([facility] AM EDT [facility]) [facility] 07/26/2010 12:00:00 eCW2 ([facility] AM EST [facility]) [facility] 07/25/2010 12:00:00 eCW2 ([facility] AM EST [facility]) [facility] 07/23/2010 12:00:00 eCW2 ([facility] AM EST [facility]) [facility] 05/08/2010 12:00:00 eCW2 ([facility] AM EST [facility]) [facility] 05/07/2010 12:00:00 eCW2 ([facility] AM EST [facility]) [facility] 05/07/2010 12:00:00 eCW2 ([facility] AM EST [facility]) [facility] 04/10/2010 12:00:00 eCW2 ([facility] AM EST [facility]) [facility] 04/03/2010 12:00:00 eCW2 ([facility] AM EST [facility]) [facility] 03/18/2010 12:00:00 eCW2 ([facility] AM EDT [facility]) [facility] 03/07/2010 12:00:00 eCW2 ([facility] AM EDT [facility]) [facility] 03/06/2010 12:00:00 eCW2 ([facility] AM EDT [facility]) [facility] 03/05/2010 12:00:00 eCW2 ([facility] AM EDT [facility]) [facility] 02/28/2010 12:00:00 eCW2 ([facility] AM EDT [facility]) [facility] 02/27/2010 12:00:00 eCW2 ([facility] AM EDT [facility]) [facility] 01/07/2010 12:00:00 eCW2 ([facility] AM EDT [facility]) [facility] 12/13/2009 12:00:00 eCW2 ([facility] AM EDT [facility]) [facility] 09/10/2009 12:00:00 eCW2 ([facility] AM EDT [facility]) [facility] 09/06/2009 12:00:00 eCW2 ([facility] AM EDT [facility]) [facility] 09/05/2009 12:00:00 eCW2 ([facility] AM EDT [facility]) [facility] 06/15/2009 12:00:00 eCW2 ([facility] AM EST [facility] 01/26/2009 12:00:00 eCW2 ([facility] 11/22/2008 12:00:00 eCW2 ([facility] AM EDT [facility]) Immunizations Vaccine Date Status Description Data Source(s) New in 2011. IIV4 07/11/2017 completed [facility] 01:18:00 PM EST Center Note that this vaccine 05/04/2016 completed [facility] Medical name has changed. See 03:04:00 PM EST Ce nter also Td (adult). It is not adsorbed. No Known Immunizations completed eCW2 ([facility]) Medications Medication Brand Start Product Dose Route Administrative Pharmacy at Indications Reaction Description Data Name Date Form Instructions Instructions Source(s) Paroxetine Paxil .0 Oral active NETS MART 10 MG Oral 2020 Table ([facility] 04:00: t er Nondenominational [Paxil] 00 AM Community EDT Services) Paroxetine Paxil .0 Oral active NETS MART 10 MG Oral 2020 Table ([facility] 04:00: t er Nondenominational [Paxil] 00 AM Community EDT Services) Naphazoline [...] Table ([facility] 05:00: t er Nondenominational [Paxil] 00 AM Community EST Services) Paroxetine Paxil .0 Oral active NETS MART 10 MG Oral 2020 Table ([facility] 05:00: t er Nondenominational [Paxil] 00 AM Community EST Services) Acetaminoph Acetam 02/12/ active 1-2 tab lets eCW2 en 500 MG inophe 2018 as needed ( dson Oral Tablet n 500 12:00: [facility] [...] 2 puffs as eCW2 Albuterol in HFA 2014 needed ([place] 0.09 108 12:00: River [...] [facility] [Paxil] _[facility]_ [facility] ng} 200 ACTUAT Ventol active 2 puffs eC W2 Albuterol in HFA ([facility] 0.09 108 [facility] MG/ACTUAT (90 Health Metered Base) Care) Dose MCG/AC Inhaler T [Ventolin] Ventolin HFA 108 (90 Base) MCG/ACT Sertraline Zoloft active 2 tablet e CW2 100 MG Oral 100 mg ([place] Tablet [place] [Zoloft] [facility] Zoloft 100 Care) mg Iron 325 [...] e CW2 0.5 MG [facility] [place] [Klonopin] [facility] Klonopin Care) 0.5 mg 3 ML HumaLO active sliding eCW2 Insulin G scale up to ([place] on Lispro 100 KwikPe 10 units Jomar er UNT/ML Pen n 100 Health Injector UNIT/M Care) [Humalog] L HumaLOG KwikPen 100 UNIT/ML aripiprazol Abilif active 1 tablet eCW2 e 10 MG y 10 ([facility] Oral Tablet MG [place] [Abilify] [facility] Abilify 10 Care) MG Losartan Losart 1.0 active Losartan eCW 3 Potassium an {tabl Potassium 50 ( [place]o 50 MG Oral Potass et} MG [facility] Tablet ium 50 [facility] Care) Depo UNK active as directed eCW2 Provera ([place] [facility] Injection Care) 150 MG/ML Depo UNK active as directed eCW2 Provera ([place] [facility] Injection Care) 150 MG/ML Insurance Providers Payer name Policy type Policy ID Covered Covered democrat's Policy P chas / Coverage democrat ID relationship to [facility] Inf ormation type charles [facility] MEDICAID [id number] SP [id number] [facility] MEDICAID [id number] SP [id number] [facility] MEDICAID [id number] SP [id number] KHMER [id number] PT [id number] 500 [facility] O [id number] 01 [id number] [facility] [id number] [facility] Problems, Conditions, and Diagnoses Code Display Name Description Problem Type Effective Data Dates Source(s) N92.1 Menorrhagia with Menorrhagia with Problem 08/25/2019 eC W3 ([facility] irregular cycle irregular cycle 12:00:00 AM [facility] EDT Care) J45.40 Moderate persistent Moderate persistent Problem 020 eCW3 ([place] asthma without asthma without 12:00:00 AM [facility] complication complication EST Care) G62.9 Polyneuropathy Polyneuropathy Problem 10/26/2018 eCW3 ( [facility] 12:00:00 AM [facility] EDT Care) I10 Essential Essential Problem 10/26/2018 eCW3 ([place] hypertension hypertension 12:00:00 AM [facility] EDT Care) E66.01 Morbid obesity Morbid obesity Problem 10/26/2018 eCW3 ( [facility] 12:00:00 AM [facility] EDT Care) D64.9 Anemia Anemia, unspecified Problem 09/30/2018 eCW3 ([facility] 12:00:00 AM [facility] EDT Care) E11.9 Type II diabetes Type 2 diabetes Problem 09/30/2018 eCW 3 ([place] mellitus without mellitus without 12:00:00 AM [facility] complication complications EDT Care) J45.909 Asthma without Unspecified asthma, Problem 09/30/2018 e CW3 ([place] status asthmaticus uncomplicated 12:00:00 AM [facility] EDT Care) 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 019 NETSMART disorder disorder 04:00:00 AM ([facility]) [id number] Posttraumatic stress Posttraumatic Complaint 08/23/2018 N ETSMART disorder stress disorder 04:00:00 AM ([facility]) [id number] Panic disorder Panic disorder Complaint 08/23/2018 NETSMA RT without agoraphobia without agoraphobia 04:00:0 0 AM ([facility]) N92.1 Menometrorrhagia Menometrorrhagia Problem 10/13/2017 eC W2 ([facility] 12:00:00 AM [facility] EDT Care) N93.9 Vaginal bleeding Vaginal bleeding Problem 10/06/2017 eC W2 ([facility] 12:00:00 AM [facility] EDT Care) E66.8 Obesity Other obesity Problem 10/06/2017 eCW2 ([place] [facility] 12:00:00 AM [facility] EDT Care) 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 Problem 08/03/2017 eCW3 ([place] use of insulin use of insulin 12:00:00 AM [facility] EDT Care) J45.41 Moderate persistent Moderate persistent Problem 018 eCW3 ([facility] asthma with acute asthma with acute 12:00:00 AM [facility] exacerbation exacerbation EDT Care) E11.65 Type 2 diabetes Type 2 diabetes Problem 08/03/2017 eCW3 ([place] mellitus with mellitus with 12:00:00 AM [facility] hyperglycemia hyperglycemia EDT Care) J45.41 Moderate persistent Moderate persistent Problem 018 eCW2 ([facility] asthma with acute asthma with acute 12:00:00 AM [facility] exacerbation exacerbation EDT Care) E11.65 Type 2 diabetes Type 2 diabetes Problem 08/03/2017 eCW2 ([place] mellitus with mellitus with 12:00:00 AM [facility] hyperglycemia hyperglycemia EDT Care) Z79.4 retirement current retirement current Problem 08/03/2017 eCW2 ([place] use of insulin use of insulin 12:00:00 AM [facility] EDT Care) Q61.00 Renal cyst Renal cyst Problem 08/20/2016 eCW3 ([facility] 12:00:00 AM [facility] EDT Care) Q61.00 Renal cyst Renal cyst Problem 08/20/2016 eCW2 ([facility] 12:00:00 AM [facility] EDT Care) E11.9 Diabetes mellitus Type 2 diabetes Problem 08/20/2016 eC W2 ([facility] type 2 mellitus with goal 12:00:00 AM [facility] of symptom EDT Care) management G62.9 Peripheral Peripheral Problem 05/21/2016 eCW2 ([facility] neuropathy neuropathy 12:00:00 AM [facility] EST Care) K30 Dyspepsia Dyspepsia Problem 05/21/2016 eCW2 ([facility] 12:00:00 AM [facility] EST Care) E11.9 Diabetes mellitus Diabetes Problem 05/10/2015 eCW2 ([facility] without complication 12:00:00 AM [facility] EST Care) J45.901 Asthma exacerbation Asthma exacerbation Problem 015 eCW2 ([place] 12:00:00 AM [facility] EDT Care) 590.80 Pyelonephritis Pyelonephritis Problem 06/27/2014 eCW2 ( [place] 12:00:00 AM [facility] Care) 493.92 Exacerbation of Asthma exacerbation Problem 10/25/2013 eCW2 ([place] asthma 12:00:00 AM [facility] EDT Care) 477.9 Allergic rhinitis ALLERGIC RHINITIS Problem eCW2 ([place] [facility]) 285.9 Anemia Anemia Problem eCW2 ([facility]) 493.90 Asthma without Asthma Intermittent Problem e CW2 ([place] status asthmaticus [facility]) 401.9 Essential Essential Problem eCW2 ([place] hypertension Hypertension, [facility] Unspec Care) 791.0 Proteinuria Proteinuria Problem eCW2 ([facility]) 250.00 Diabetes mellitus Diabetes mellitus Problem eCW2 ([place] type 2 type 2 [facility]) 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 Q61.02 Diagnosis 01/09/2020 [place] renal cysts 12:46:00 PM Hospital EDT N20.0 Calculus of kidney N20.0 Diagnosis 01/09/2020 [place] 12:46:00 PM Hospital EDT J90 Pleural effusion, J90 Diagnosis 01/09/2020 [place] not elsewhere 12:46:00 PM Hospital classified EDT I31.3 Pericardial effusion I31.3 Diagnosis 01/09/2020 [place] (noninflammatory) 12:46:00 PM Hospit al EDT I51.7 Cardiomegaly I51.7 Diagnosis 01/09/2020 [place] 12:46:00 PM Hospital EDT R91.8 Other nonspecific R91.8 Diagnosis 01/09/2020 [place] abnormal finding of 12:46:00 PM Hosp ital lung field EDT C53.9 Malignant neoplasm C53.9 Diagnosis 01/09/2020 [place] of cervix uteri, 12:46:00 PM Hospita l unspecified EDT Surgeries/Procedures Procedure Description Date Indications Data Source(s) CUL PRSMPTV [id number] 02/25/2018 eCW2 ([facility] ORGANISM SCRN W/COLONY 12:00:00 AM EDT He alth Care) ESTIMJ Results ID Date Data Source [id number] 02/04/2020 05:10:00 PM EDT [facility] Name Value Range Interpretation Description Data Sup porting Code Source(s) Document(s ) SARS [facility] coronavirus 2 RNA This lab was ordered by [facility] and reported by [facility]. ID Date Data Source [id number] 01/13/2020 10:30:00 AM EDT [facility] Name Value Range Interpretation Description Data Sup porting Code Source(s) Document(s ) SARS [facility] coronavirus 2 RNA This lab was ordered by [facility] and reported by [facility]. ID Date Data Source [id number] 12/26/2019 05:45:00 PM EDT [facility] Name Value Range Interpretation Description Data Sup porting Code Source(s) Document(s ) SARS [facility] coronavirus 2 RNA This lab was ordered by [facility] and reported by [facility]. ID Date Data Source [id number] 12/20/2019 06:45:00 PM EDT [facility] Name Value Range Interpretation Description Data Sup porting Code Source(s) Document(s ) SARS [facility] coronavirus 2 RNA This lab was ordered by [facility] and reported by [facility]. ID Date Data Source [id number] 11/17/2019 11:25:00 PM EDT [facility] Name Value Range Interpretation Description Data Sup porting Code Source(s) Document(s ) SARS [facility] CORONAVIRUS 2 RNA This lab was ordered by [facility] and reported by [facility]. ID Date Data Source [id number] 10/08/2019 03:15:00 PM EDT [facility] Name Value Range Interpretation Description Data Sup porting Code Source(s) Document(s ) SARS [facility] CORONAVIRUS 2 RNA This lab was ordered by [facility] and reported by [facility]. ID Date Data Source Liver Profile 07/11/2018 04:15:00 PM EST [facility] Name Value Range Interpretation Description Data [...] Data Source HematologyRou 07/11/2018 04:15:00 PM EST [facility] Name Value Range Interpretation Description Data [...] Date Data Source GFR(Creatinine) 07/11/2018 04:15:00 PM [facility] Name Value Range Interpretation Code Description Data Radha rce(s) Supporting Document(s ) UNK > 60 Below low normal <content [facility] styleCode="Bold"> Medical Cent er EGFR </content>39 GFR L<content styleCode="Italic s"> (> 60 GFR)</content> ID Date Data Source CHMROUTINECCDA 07/11/2018 04:15:00 PM [facility] Name Value Range Interpretation Description Data Sup porting Code Source(s) Document(s ) Lipase 23-300 <content [facility] [Enzymatic styleCode="Bold Medical activity/vo ">Lipase Center lume] in </content>49 Serum or IU/L<content Plasma styleCode="Ital ics"> (23-300 IU/L)</content> ID Date Data Source BMP 07/11/2018 04:15:00 PM [facility] Name Value Range Interpretation Description Data [...] IU/L)</content> Alkaline 38-126 <content [facility] phosphatase styleCode="Bold"> [facility] [Enzymatic Alkaline Medical activity/volume] Phosphatase (ALP) [...] Data Source Urinalysis 07/11/2018 03:50:00 PM EST [facility] Name Value Range Interpretation Description Data [...] 1.015-1.02 <content [facility] gravity of 5 styleCode="Antonietta Beckham Urine by Test d">Urine Medical strip Specific Center [place] </content>1.02 5 NM<content styleCode="Cheryl lics"> (1.015-1.025 NM)</content> Ketones NEGATIVE <content [facility] [Mass/volume] styleCode="Antonietta Carlsons in [...] GROUP A 02/25/2018 12:00:00 AM EDT eCW2 ([facility]A-HEMOLYT[facility]) Name Value Range Interpretation Description Data Sup porting Code Source(s) Document(s ) Streptococcus NEGATIVE NEGATIVE STREP, GRP.A, eCW2 pyogenes DNA (Polo [Presence] in [place] [facility]) specific culture ID Date Data Source Rapid Strep A, In House.0 02/25/2018 12:00:00 AM EDT eCW2 ([facility]) Name Value Range Interpretation Description Data Sup porting Code Source(s) Document(s ) negative negative - Rapid Strep A eCW2 ([facility]) Procedure Social History Code Duration Value Status Description Data Source(s ) Smoking 09/08/2019 Former Smoker completed [facility] Smoking 07/11/2018 Former Smoker completed Former Smoker [facility] 03:39:00 PM EST Medical C enter Smoking 07/11/2018 Former Smoker completed Former Smoker [facility] 03:22:00 PM EST Medical C enter Smoking 07/11/2018 Former Smoker completed Former Smoker [facility] 02:52:00 PM EST Medical C enter Former Smoker completed Former Smoker eCW3 ([facility]) Smoking Unknown if ever completed Unknown if ever eCW2 ([facility]) Vital Signs ID Date Data Source UNK Name Value Range Interpretation Code Description Data Source(s) Diastolic blood 78 mm[Hg] 78 mm[Hg] eCW3 ([facility]) Systolic blood 123 mm[Hg] 123 mm[Hg] eCW3 ([facility]) Body temperature 97.6 [degF] 97.6 [degF] eCW3 ( [facility]) Heart rate 18 /min 18 /min eCW3 ([facility]) Body mass index 42.53 kg/m2 42.53 kg/m2 eCW3 ([facility]ade[facility] moon (BMI) [Ratio] [facility]) Body weight 242.0 242.0 [lb_av] eCW3 ([facility] [lb_av] [facility]) Body height 63.25 [in_i] 63.25 [in_i] eCW3 ([facility]) Body temperature 37.163319 37.803774 [facility] Respiratory rate 18 /min 18 /min [facility] Oxygen saturation 98 % 98 % [facility] in [facility] blood [facility] by Pulse oximetry Heart rate 82 /min 82 /min [facility] Diastolic blood 76 mm[Hg] 76 mm[Hg] [facility] Systolic blood 139 mm[Hg] 139 mm[Hg] [facility] Body temperature 36.890594 36.276289 [facility] Respiratory rate 18 /min 18 /min [facility] Oxygen saturation 98 % 98 % [facility] in Arterial blood Medical Center by Pulse oximetry Heart rate 80 /min 80 /min [facility] Diastolic blood 78 mm[Hg] 78 mm[Hg] [facility] Systolic blood 140 mm[Hg] 140 mm[Hg] [facility] Body weight 92.371857 kg 92.898616 kg [facility] Body temperature 36.021784 36.033879 [facility] Respiratory rate 17 /min 17 /min [facility] Oxygen saturation 100 % 100 % [facility] in Arterial blood [facility] by Pulse oximetry Heart rate 101 /min 101 /min [facility] Body height 162.876528 162.733492 cm [facility] Diastolic blood 75 mm[Hg] 75 mm[Hg] [facility] Systolic blood 137 mm[Hg] 137 mm[Hg] [facility] Body mass index 35.1 kg/m2 35.1 kg/m2 [facility] (BMI) [Ratio] Medical [facility] [facility] Diastolic blood 82 mm[Hg] 82 mm[Hg] eCW2 ([facility]) Systolic blood 129 mm[Hg] 129 mm[Hg] eCW2 ([facility]) Body temperature 100.4 [degF] 100.4 [degF] eCW2 ([facility]) Body mass index 37.42 kg/m2 37.42 kg/m2 eCW2 ([facility] (BMI) [Ratio] [facility]) Body weight 218 [lb_av] 218 [lb_av] eCW2 ([facility]) Body height 64 [in_us] 64 [in_us] eCW2 ([facility]) Patient Treatment Plan of Care Planned Activity Planned Date Details Description Data Source (s) Naphazoline Hydrochloride 09/08/2019 12:00:00 eCW3 ([facility] 0.25 MG/ML / Pheniramine AM EDT [facility]) Maleate 3 MG/ML Ophthalmic Solution [Naphcon A]
[2020-02-19] MEDS: PARoxetine HCL 10 MG TABLET PO SCH (10:06)
[2020-02-19] MEDS: MONTELUKAST NA 10 MG TABLET PO SCH (10:06)
[2020-02-19] MEDS: PANTOPRAZOLE 40 MG TABLET PO SCH (10:06)
[2020-02-19] MEDS: BUDESONIDE/FORMETEROL FUMARATE 80/4.5 mcg INHALER IH SCH ×2 (10:07→22:25)
--- NOTE | 2020-02-19 11:17 | PN ---
Progress Note (short form) - Note Progress Note: RENAL Pt had to stay since her permcath didnt work yesterday she is wll c/o abdominal pain. She was constipated but took prune juice Last Vital Signs Temp Pulse Resp BP Pulse Ox 98.4 F 81 18 130/81 98 02/19/20 06:00 02/19/20 06:00 02/19/20 06:00 02/19/20 06:00 02/19/20 06:00 lungs clear cvs s1s2 rr abd soft ext no edema neuro a+ox3 CBC, BMP 02/19/20 06:52 02/19/20 06:52 IMPRESSION esrd anemia s/p transfusion- cant take josé due to malignancy nonfunctioning permcath PLAN will have a new catheter placed. Should be a new site can be dialyzed tomorrow. Does not meet any criteria for emergent hd she is normokalemic but I warned her about drinking prune juice which can increase k MV
[2020-02-19] MEDS ORDERED: BISMUTH SUBSALICYLATE 524 MG/30 ML UD PO PRN ×2 (12:16→20:56)
--- NOTE | 2020-02-19 12:18 | PN ---
Progress Note (short form) - Note Progress Note: S: Catheter exchange Thursday with Rafael. Pt with diarrhea and abdominal cramping today; was previously constipated and attempted drinking prune juice. Vital Signs Temperature 98.4 F 02/19/20 06:00 Pulse Rate 81 02/19/20 06:00 Respiratory Rate 18 02/19/20 06:00 Blood Pressure 130/81 02/19/20 06:00 O2 Sat by Pulse Oximetry (%) 98 02/19/20 06:00 PE: Gen: NAD, awake, alert HEENT: Nc/AT, EOMI, AZUCENA, MMM Neck: R permacath noted w/o erythema or discharge, L chemoport without any overlying skin changes LUNG: CTA b/l without wheezes or rales CARD: RRR no murmurs noted ABD: Soft, Nt/ND, + BS EXT: No edema CBC, BMP 02/19/20 06:52 02/19/20 06:52 Active Medications Bismuth Subsalicylate (Pepto-Bismol -) 524 mg PO DAILY PRN PRN Reason: DIARRHEA Budesonide/Formoterol Fumarate (Symbicort 80/4.5mcg -) 2 puff IH BID [facility] Last Admin: 02/19/20 10:07 Dose: 2 puff Documented by: Gabapentin (Neurontin -) 600 mg PO TID [facility] Last Admin: 02/19/20 06:16 Dose: 600 mg Documented by: Sodium Chloride (Normal Saline -) 250 mls @ 3,000 mls/hr IV PRN PRN PRN Reason: Hypotension during Dialysis Insulin Aspart (Novolog Vial Sliding Scale -) 1 vial SQ ACHS [facility]; Protocol Last Admin: 02/19/20 12:05 Dose: 2 units Documented by: Montelukast Sodium (Singulair -) 10 mg PO DAILY [facility] Last Admin: 02/19/20 10:06 Dose: 10 mg Documented by: Pantoprazole Sodium (Protonix -) 40 mg PO DAILY [facility] Last Admin: 02/19/20 10:06 Dose: 40 mg Documented by: Paroxetine HCl (Paxil -) 10 mg PO DAILY [facility] Last Admin: 02/19/20 10:06 Dose: 10 mg Documented by: Assessment and Plan: Nonfunctional Permacath ESRD on HD Cervical Ca receiving chemotherapy Normocytic anemia s/p Transfusion DM Bipolar disorder with depression History of Asthma, not in exacerbation --Permacath questionable clotting --For exchanged Thursday discussed with vascular --NPO after midnight on Thursday --Holding all AC including PPX dosing --Will discuss with hem/onc if patient should be on AC due to hypercoaguable state 2/2 malignancy --Monitor electrolytes and uremia --Avoid prune juice due to potassium containing foods --Can use pepto-bismol as needed for diarrhea and upset stomach --Symbicort and albuterol inhalers to continue --Protonix qdaily --Paxil qdaily Dispo: Monitor M/S; permacath exchange thursday Chaz Shelton DO - IM
--- NOTE | 2020-02-19 15:14 | PN.HO ---
Progress Note (short form) - Note Progress Note: Patient seen and examined Feels well Some abdominal bloating AFVSS Cor: RSR, No murmurs, No gallops Lungs: Clear to P&A Abd: Soft, Normal bowel sounds, No organomegaly Ext:No significant edema Labs/MEds reviewed A/P 40 y/o with DM, HTN< ESRD, cervical cancer on carboplatin weekly with RT comes in for elective transfusion. s/p 4 doses of weekly carboplatin. Week 4 was held due to thrombocytopenia For dialysis no data on systemic antithrombotic prophylaxis for catheter associated thrombosis. Repeat dose is due on 02/21 Needs RT to be coordinated tomorrow 02/19
[2020-02-19] MEDS: oxyCODONE HCL 5 MG TABLET PO PRN (20:09)
[2020-02-20] MEDS ORDERED: HEPARIN NA (PORCINE) 5,000 UNITS/ML 1ML VIAL SQ ONE
[2020-02-20] MEDS: GABAPENTIN 300 MG CAPSULE PO SCH ×3 (05:40→22:40)
[2020-02-20] MEDS: oxyCODONE HCL 5 MG TABLET PO PRN ×2 (06:20→17:17)
[2020-02-20] MEDS: INSULIN SLIDING SCALE (NOVOLOG) 1 VIAL SQ SCH ×4 (06:22→22:41)
[2020-02-20] MEDS: PORTA CATH FLUSH 10 ML IVPUSH PRN (06:28)
[2020-02-20 08:35] LABS: BASO % 0.5 % (0-2.0); EOS % 3.4 % (0-4.5); HEMATOCRIT 29.2 % (32.4-45.2); HEMOGLOBIN 9.7 GM/dL (10.7-15.3); MCH 29.3 pg (25.7-33.7); MCHC 33.3 g/dl (32.0-36.0); MEAN PLT VOLUME 8.1 fl (7.5-11.1); MONO % 6.9 % (3.8-10.2); NEUT % 80.2 % (42.8-82.8); PLATELET COUNT 106 K/MM3 (134-434); RBC 3.32 M/mm3 (3.60-5.2); RDW 15.8 % (11.6-15.6); WHITE BLOOD COUNT 4.7 K/mm3 (4.0-10.0)
[2020-02-20 09:05] LABS: ALBUMIN 1.9 g/dl (3.4-5.0); BILIRUBIN,TOTAL 0.2 mg/dL (0.2-1); CALCIUM 7.5 mg/dL (8.5-10.1); MAGNESIUM 1.9 mg/dL (1.8-2.4); TOT PROT 5.4 g/dl (6.4-8.2)
--- NOTE | 2020-02-20 10:08 | PN ---
Physical Exam: SUBJECTIVE: Patient seen and examined this AM. OBJECTIVE: Vital Signs Period Temp Pulse Resp BP Sys/Farah Pulse Ox Last 24 Hr 98.5 F-98.8 F 92-104 18-20 111-144/82-95 98-100 GENERAL: A&Ox3, NAD HEAD: NCAT EYES: PERRL, EOMI ENT: Moist mucous membranes. NECK: Supple, No JVD CHEST: Right HD access, Left Permacath LUNGS: Diminished breath sounds at the bases, No wheezes. HEART: Regular rate and rhythm, normal S1 and S2 without murmur ABDOMEN: Obese, Soft, nontender, not distended, + bowel sounds, no guarding, no rebound EXTREMITIES: No peripheral edema. NEUROLOGICAL: Cranial nerves II-XII intact. Normal speech. SKIN: Warm, dry Laboratory Last Values WBC 4.7 K/mm3 (4.0-10.0) 02/20/20 05:47 RBC 3.32 M/mm3 (3.60-5.2) L 02/20/20 05:47 Hgb 9.7 GM/dL (10.7-15.3) L 02/20/20 05:47 Hct 29.2 % (32.4-45.2) L 02/20/20 05:47 MCV 88.0 fl (80-96) 02/20/20 05:47 MCH 29.3 pg (25.7-33.7) 02/20/20 05:47 MCHC 33.3 g/dl (32.0-36.0) 02/20/20 05:47 RDW 15.8 % (11.6-15.6) H 02/20/20 05:47 Plt Count 106 K/MM3 (134-434) L D 02/20/20 05:47 MPV 8.1 fl (7.5-11.1) 02/20/20 05:47 Absolute Neuts (auto) 3.8 K/mm3 (1.5-8.0) 02/20/20 05:47 Neutrophils % 80.2 % (42.8-82.8) 02/20/20 05:47 Lymphocytes % 9.0 % (8-40) D 02/20/20 05:47 Monocytes % 6.9 % (3.8-10.2) 02/20/20 05:47 Eosinophils % 3.4 % (0-4.5) D 02/20/20 05:47 Basophils % 0.5 % (0-2.0) 02/20/20 05:47 Nucleated RBC % 0 % (0-0) 02/20/20 05:47 Sodium 137 mmol/L (136-145) 02/20/20 05:47 Potassium 4.0 mmol/L (3.5-5.1) 02/20/20 05:47 Chloride 105 mmol/L (98-107) 02/20/20 05:47 Carbon Dioxide 24 mmol/L (21-32) 02/20/20 05:47 Anion Gap 9 MMOL/L (8-16) 02/20/20 05:47 BUN 42.0 mg/dL (7-18) H 02/20/20 05:47 Creatinine 5.0 mg/dL (0.55-1.3) H 02/20/20 05:47 Est GFR (CKD-EPI)AfAm 11.74 02/20/20 05:47 Est GFR (CKD-EPI)NonAf 10.13 02/20/20 05:47 POC Glucometer 161 UNITS (80-120) 02/20/20 05:43 Random Glucose 177 mg/dL (74-106) H 02/20/20 05:47 Calcium 7.5 mg/dL (8.5-10.1) L 02/20/20 05:47 Magnesium 1.9 mg/dL (1.8-2.4) 02/20/20 05:47 Total Bilirubin 0.2 mg/dL (0.2-1) 02/20/20 05:47 AST 10 U/L (15-37) L 02/20/20 05:47 ALT 11 U/L (13-61) L 02/20/20 05:47 Alkaline Phosphatase 98 U/L (45-117) 02/20/20 05:47 Total Protein 5.4 g/dl (6.4-8.2) L 02/20/20 05:47 Albumin 1.9 g/dl (3.4-5.0) L 02/20/20 05:47 Blood Type O POSITIVE 02/17/20 16:11 Antibody Screen Negative 02/17/20 16:11 Crossmatch See Detail 02/17/20 16:11 Active Medications Bismuth Subsalicylate (Pepto-Bismol -) 524 mg PO DAILY PRN PRN Reason: DIARRHEA Last Admin: 02/19/20 16:00 Dose: 524 mg Documented by: Budesonide/Formoterol Fumarate (Symbicort 80/4.5mcg -) 2 puff IH BID [facility] Last Admin: 02/19/20 22:25 Dose: 2 puff Documented by: Gabapentin (Neurontin -) 600 mg PO TID [facility] Last Admin: 02/20/20 05:40 Dose: Not Given Documented by: IV Flush (Fawn-Cath Flush) 10 ml IVPUSH PRN PRN PRN Reason: protocol, maintain patency Last Admin: 02/20/20 06:28 Dose: 10 ml Documented by: Sodium Chloride (Normal Saline -) 250 mls @ 3,000 mls/hr IV PRN PRN PRN Reason: Hypotension during Dialysis Insulin Aspart (Novolog Vial Sliding Scale -) 1 vial SQ ACHS [facility]; Protocol Last Admin: 02/20/20 06:22 Dose: Not Given Documented by: Montelukast Sodium (Singulair -) 10 mg PO DAILY [facility] Last Admin: 02/19/20 10:06 Dose: 10 mg Documented by: Oxycodone HCl (Roxicodone -) 5 mg PO Q6H PRN PRN Reason: PAIN LEVEL 7 - 10 Last Admin: 02/20/20 06:20 Dose: 5 mg Documented by: Pantoprazole Sodium (Protonix -) 40 mg PO DAILY [facility] Last Admin: 02/19/20 10:06 Dose: 40 mg Documented by: Paroxetine HCl (Paxil -) 10 mg PO DAILY [facility] Last Admin: 02/19/20 10:06 Dose: 10 mg Documented by: ASSESSMENT/PLAN: 40 y/o F PMHx ESRD (on HD TuThSa), Stage IIIB cervical cancer (On Carboplatin and radiotherapy, last dose 02/02), DM 1, Bipolar Disorder/Depression/Anxiety, asthma admitted for HD and blood transfusion. Patient was recently admitted on for clotted permacath. During HD on 02/17, Patient found to have nonfunctional permacath requiring exchange. #Anemia -Likely multifactorial anemia of chronic inflammation in the setting of ESRD while on active chemotherapy, Now s/p pRBC transfusion -Recent anemia work up reviewed, No current evidence of acute blood loss #Stage IIIB cervical cancer -On Carboplatin (has completed 4 doses; Last dose held due to thrombocytopenia) and radiotherapy -Next dose Carboplatin on 02/21 -Patient to be discharged after HD for chemo and to resume Radiotherapy tomorrow -DVT PPx #Thrombocytopenia -Likely due to Active chemotherapy #ESRD on HD -In the setting of ADPKD, Now with ?Permacath clotting -Vascular consulted for catheter exchange -Nephro for HD arrangements after catheter exchange Visit type - Emergency Visit Emergency Visit: Yes ED Registration Date: 02/17/20 Care time: The patient presented to the Emergency Department on the above date and was hospitalized for further evaluation of their emergent condition. - New Patient This patient is new to me today: Yes Date on this admission: 02/21/20 - Critical Care Critical Care patient: No - Discharge Referral Referred to [facility] Med [facility] No ATTENDING PHYSICIAN STATEMENT I saw and evaluated the patient. I reviewed the resident's note and discussed the case with the resident. I agree with the resident's findings and plan as documented. SUBJECTIVE: OBJECTIVE: ASSESSMENT AND PLAN:
[2020-02-20] MEDS ORDERED: HEPARIN NA (PORCINE) 5,000 UNITS/ML 1ML VIAL ONE (11:15)
[2020-02-20] MEDS ORDERED: LIDOCAINE HCL 1%, 10 MG/ML (20ML VIAL) ONE (11:15)
[2020-02-20] MEDS ORDERED: PROPOFOL 20 ML ONE ×2 (11:20)
[2020-02-20] MEDS ORDERED: SUCCINYLCHOLINE CHLORIDE 200 MG/10 ML SYRINGE ONE (11:20)
[2020-02-20] MEDS ORDERED: MIDAZOLAM HCL 2 MG/2 ML SINGLE DOSE VIAL ONE (11:21)
[2020-02-20] MEDS: PARoxetine HCL 10 MG TABLET PO SCH (11:29)
[2020-02-20] MEDS: PANTOPRAZOLE 40 MG TABLET PO SCH (11:32)
[2020-02-20] MEDS: BUDESONIDE/FORMETEROL FUMARATE 80/4.5 mcg INHALER IH SCH ×2 (11:32→22:42)
[2020-02-20] MEDS: MONTELUKAST NA 10 MG TABLET PO SCH (11:32)
[2020-02-20 12:09] LABS: INR 0.87 (0.83-1.09); PROTHROMBIN TIME (PATIENT) 10.3 SEC (9.7-13.0)
[2020-02-20] MEDS ORDERED: LIDOCAINE HCL 1%, 10 MG/ML (20ML VIAL) ID ONE ×3 (12:19)
--- NOTE | 2020-02-20 12:20 | PN ---
Progress Note, Physician History of Present Illness: Seen and examined at the bedside no acute complaints NPO for tunneled HD catheter insertion no cp, sob, abdominal pain has sporadic loose BM's - Current Medication List Current Medications: Active Medications Bismuth Subsalicylate (Pepto-Bismol -) 524 mg PO DAILY PRN PRN Reason: DIARRHEA Last Admin: 02/19/20 16:00 Dose: 524 mg Documented by: Budesonide/Formoterol Fumarate (Symbicort 80/4.5mcg -) 2 puff IH BID [facility] Last Admin: 02/20/20 11:32 Dose: Not Given Documented by: Gabapentin (Neurontin -) 600 mg PO TID [facility] Last Admin: 02/20/20 05:40 Dose: Not Given Documented by: IV Flush (Fawn-Cath Flush) 10 ml IVPUSH PRN PRN PRN Reason: protocol, maintain patency Last Admin: 02/20/20 06:28 Dose: 10 ml Documented by: Sodium Chloride (Normal Saline -) 250 mls @ 3,000 mls/hr IV PRN PRN PRN Reason: Hypotension during Dialysis Insulin Aspart (Novolog Vial Sliding Scale -) 1 vial SQ ACHS [facility]; Protocol Last Admin: 02/20/20 06:22 Dose: Not Given Documented by: Montelukast Sodium (Singulair -) 10 mg PO DAILY [facility] Last Admin: 02/20/20 11:32 Dose: Not Given Documented by: Oxycodone HCl (Roxicodone -) 5 mg PO Q6H PRN PRN Reason: PAIN LEVEL 7 - 10 Last Admin: 02/20/20 06:20 Dose: 5 mg Documented by: Pantoprazole Sodium (Protonix -) 40 mg PO DAILY [facility] Last Admin: 02/20/20 11:32 Dose: Not Given Documented by: Paroxetine HCl (Paxil -) 10 mg PO DAILY [facility] Last Admin: 02/20/20 11:29 Dose: Not Given Documented by: - Objective Vital Signs: Vital Signs Temperature 98.6 F 02/20/20 10:00 Pulse Rate 90 02/20/20 10:00 Respiratory Rate 02/20/20 10:00 Blood Pressure 127/61 02/20/20 10:00 O2 Sat by Pulse Oximetry (%) 99 02/20/20 10:00 Constitutional: Yes: No Distress, Calm HENT: Yes: Atraumatic Neck: Yes: Supple Cardiovascular: Yes: Regular Rate and Rhythm Respiratory: Yes: Regular Gastrointestinal: Yes: Soft Extremities: No: Cyanosis Edema: No Neurological: Yes: Alert Labs: CBC, BMP 02/20/20 05:47 02/20/20 05:47 INR, PTT INR 0.87 (0.83-1.09) 02/20/20 10:52 Assessment/Plan 40 y/o female PMH ESRD on HD 2/2 PCKD, cervical cancer (on CTx, last dose 02/02), DM 1, Bipolar Disorder/Depression/Anxiety, asthma admitted for HD and blood transfusion. 1. Anemia 2. ESRD on HD 3. Cervical Ca 4. PCKD 5. Depression/anxiety For tunneled HD catheter insertion and then dialysis today. Can anticipate discharge after dialysis. s/p PRBC transfusion to continue chemo and radiation therapy as outpatient discharge planning as per primary team Brian Dahl DO
--- NOTE | 2020-02-20 12:37 | OP ---
Operative Note - Note: Operative Date: 02/20/20 Pre-Operative Diagnosis: clotted permacath Operation: permacath exchange Post-Operative Diagnosis: Same as Pre-op Surgeon: Guillermo Hall Anesthesia: Regional Estimated Blood Loss (mls): 10 Operative Report Dictated: Yes
[2020-02-20] MEDS ORDERED: ONDANSETRON 4 MG/2 ML VIAL IVPUSH PRN (12:55)
--- NOTE | 2020-02-20 13:33 | PN ---
Teaching Attending Note Name of Resident: Zion Conner ATTENDING PHYSICIAN STATEMENT I saw and evaluated the patient. I reviewed the resident's note and discussed the case with the resident. I agree with the resident's findings and plan as documented. SUBJECTIVE: Seen and examined at bedside. N.p.o. for permacath placement today. OBJECTIVE Last Vital Signs Temp Pulse Resp BP Pulse Ox 98.6 F 90 20 127/61 99 02/20/20 10:00 02/20/20 10:00 02/20/20 10:00 02/20/20 10:00 02/20/20 10:00 PE: Per resident note Labs/Imaging: reviewed ASSESSMENT/PLAN 40-year-old female past medical history of ESRD, stage IIIb cervical cancer on carboplatin and radiotherapy, DM 1, bipolar/depression/anxiety, asthma admitted for elective transfusion of RBCs, course complicated by clotted permacath which is now been replaced. #Anemia of chronic disease Status post 1 unit PRBC To follow heme-onc as an outpatient #Stage IIIb cervical cancer On carboplatin and radiotherapy Hematology/unk on board: Appreciate recommendations #Thrombocytopenia In the setting of chemotherapy Continue to monitor #ESRD on HD with clotted permacath In setting of autosomal dominant polycystic kidney disease Permacath to be replaced today Nephrology on board: Appreciate recommendations
[2020-02-20] MEDS ORDERED: SODIUM CHLORIDE 250 ML IV PRN (14:47)
[2020-02-20] MEDS: LACTATED RINGERS SOLUTION 1,000 ML IV SCH (15:36)
--- NOTE | 2020-02-20 16:30 | PN ---
Teaching Attending Note Name of Resident: Rylei Delaney ATTENDING PHYSICIAN STATEMENT I saw and evaluated the patient. I reviewed the resident's note and discussed the case with the resident. I agree with the resident's findings and plan as documented. 40F with PMHx with ESRD on HD 2/2 PCKD, Cervical ca last chemo 02/13, DMI, presents for HD and anemia/PRBC transfusion also with thrombocytopenia ; plan for catheter change today and then dc after HD for chemo infusion outpatient this week. Plan to resume xrt tomorrow as outpatient
[2020-02-20 17:41] LABS: BLOOD UREA NITROGEN 44.5 mg/dL (7-18); CALCIUM 7.5 mg/dL (8.5-10.1); CREATININE 5.1 mg/dL (0.55-1.3); POTASSIUM 4.1 mmol/L (3.5-5.1)
--- NOTE | 2020-02-20 19:22 | PN ---
Physical Exam: SUBJECTIVE: Patient seen and examined at bedside. Underwent permacath placement today. OBJECTIVE: Vital Signs Period Temp Pulse Resp BP Sys/Farah Pulse Ox Last 24 Hr 98.4 F-98.8 F 86-94 20-20 119-165/61-93 97-100 GENERAL: No acute distress HEAD: Normal with no signs of trauma. EYES: EOMI Sclera Clear NECK: Trachea midline, full range of motion, supple. CHEST: Port left upper chest. Permacath right upper chest LUNGS: CTAB anteriorly HEART: RRR S1S2 ABDOMEN: TTP suprapubic area. No rebound, guarding, or rigidity. BS+. EXTREMITIES: No edema b/l PSYCH: Normal mood, normal affect. SKIN: Warm, dry, normal turgor, no rashes or lesions noted Laboratory Results - last 24 hr 02/17/20 02/19/20 02/20/20 16:11 22:20 05:43 WBC RBC Hgb Hct MCV MCH MCHC RDW Plt Count MPV Absolute Neuts (auto) Neutrophils % Lymphocytes % Monocytes % Eosinophils % Basophils % Nucleated RBC % PT with INR INR Sodium Potassium Chloride Carbon Dioxide Anion Gap BUN Creatinine Est GFR (CKD-EPI)AfAm Est GFR (CKD-EPI)NonAf POC Glucometer 169 161 Random Glucose Calcium Magnesium Total Bilirubin AST ALT Alkaline Phosphatase Total Protein Albumin SARS-CoV-2 (PCR) Blood Type O POSITIVE Antibody Screen Negative Crossmatch See Detail 02/20/20 02/20/20 02/20/20 05:47 05:47 10:50 WBC 4.7 RBC 3.32 L Hgb 9.7 L Hct 29.2 L MCV 88.0 MCH 29.3 MCHC 33.3 RDW 15.8 H Plt Count 106 L D MPV 8.1 Absolute Neuts (auto) 3.8 Neutrophils % 80.2 Lymphocytes % 9.0 D Monocytes % 6.9 Eosinophils % 3.4 D Basophils % 0.5 Nucleated RBC % 0 PT with INR INR Sodium 137 Potassium 4.0 Chloride 105 Carbon Dioxide 24 Anion Gap 9 BUN 42.0 H Creatinine 5.0 H Est GFR (CKD-EPI)AfAm 11.74 Est GFR (CKD-EPI)NonAf 10.13 POC Glucometer Random Glucose 177 H Calcium 7.5 L Magnesium 1.9 Total Bilirubin 0.2 AST 10 L ALT 11 L Alkaline Phosphatase 98 Total Protein 5.4 L Albumin 1.9 L SARS-CoV-2 (PCR) Negative Blood Type Antibody Screen Crossmatch 02/20/20 02/20/20 02/20/20 10:52 11:48 16:00 WBC RBC Hgb Hct MCV MCH MCHC RDW Plt Count MPV Absolute Neuts (auto) Neutrophils % Lymphocytes % Monocytes % Eosinophils % Basophils % Nucleated RBC % PT with INR 10.30 INR 0.87 Sodium 136 Potassium 4.1 Chloride 105 Carbon Dioxide 24 Anion Gap 8 BUN 44.5 H Creatinine 5.1 H Est GFR (CKD-EPI)AfAm 11.46 Est GFR (CKD-EPI)NonAf 9.89 POC Glucometer 150 Random Glucose 210 H Calcium 7.5 L Magnesium Total Bilirubin AST ALT Alkaline Phosphatase Total Protein Albumin SARS-CoV-2 (PCR) Blood Type Antibody Screen Crossmatch 02/20/20 17:11 WBC RBC Hgb Hct MCV MCH MCHC RDW Plt Count MPV Absolute Neuts (auto) Neutrophils % Lymphocytes % Monocytes % Eosinophils % Basophils % Nucleated RBC % PT with INR INR Sodium Potassium Chloride Carbon Dioxide Anion Gap BUN Creatinine Est GFR (CKD-EPI)AfAm Est GFR (CKD-EPI)NonAf POC Glucometer 206 Random Glucose Calcium Magnesium Total Bilirubin AST ALT Alkaline Phosphatase Total Protein Albumin SARS-CoV-2 (PCR) Blood Type Antibody Screen Crossmatch Active Medications Generic Name Dose Route Start Last Admin Trade Name Freq PRN Reason Stop Dose Admin Bismuth Subsalicylate 524 mg 02/19/20 12:16 02/19/20 16:00 Pepto-Bismol - PO 524 mg DAILY PRN Administration DIARRHEA Budesonide/Formoterol Fumarate 2 puff 02/18/20 10:00 02/20/20 11:32 Symbicort 80/4.5mcg - IH Not Given BID UMBERTO Fentanyl 50 mcg 02/20/20 12:55 Sublimaze Injection - IVPUSH [id number] PRN PAIN-PACU ORDER X 4 DOSES ONLY Gabapentin 600 mg 02/18/20 14:00 02/20/20 15:37 Neurontin - PO 600 mg TID UMBERTO Administration IV Flush 10 ml 02/20/20 00:09 02/20/20 06:28 Fawn-Cath Flush IVPUSH 10 ml PRN PRN Administration protocol, maintain patency Lactated Ringer's 1,000 mls @ 125 mls/hr 02/20/20 13:00 02/20/20 15:36 Lactated Ringers Solution IV 125 mls/hr ASDIR UMBERTO Administration Sodium Chloride 250 mls @ 3,000 mls/hr 02/20/20 14:47 Normal Saline - IV 02/21/20 14:47 PRN PRN Hypotension during Dialysis Insulin Aspart 1 vial 02/17/20 22:00 02/20/20 17:17 Novolog Vial Sliding Scale - SQ 2 units ACHS UMBERTO Administration Protocol Montelukast Sodium 10 mg 02/18/20 10:00 02/20/20 11:32 Singulair - PO Not Given DAILY UMBERTO Ondansetron HCl 4 mg 02/20/20 12:55 Zofran Injection IVPUSH Q6H PRN NAUSEA AND/OR VOMITING Oxycodone HCl 5 mg 02/19/20 17:23 02/20/20 17:17 Roxicodone - PO 5 mg Q6H PRN Administration PAIN LEVEL 7 - 10 Pantoprazole Sodium 40 mg 02/18/20 10:00 02/20/20 11:32 Protonix - PO Not Given DAILY UMBERTO Paroxetine HCl 10 mg 02/18/20 10:00 02/20/20 11:29 Paxil - PO Not Given DAILY UMBERTO ASSESSMENT/PLAN: 40-year-old female past medical history of ESRD, stage IIIb cervical cancer on carboplatin and radiotherapy, DM 1, bipolar/depression/anxiety, asthma admitted for elective transfusion of RBCs, course complicated by clotted permacath which is now been replaced. #ESRD on HD with clotted permacath -Patient for O.R today to replace permacath. -Renal on board. #Anemia of chronic disease -Ferritin >1800. Likely 2/2 Malignancy Status post 1 unit PRBC To follow heme-onc as an outpatient #Stage IIIb cervical cancer On Carboplatin (has completed 4 doses; Last dose held due to thrombocytopenia) and radiotherapy -Next dose Carboplatin on 02/21 Heme/Onc on board. recs appreciated #Thrombocytopenia- Today 106. In the setting of chemotherapy Continue to monitor #FEN LR@125cc/hr Monitor Electrolytes Renal Diet DVT ppx: SCDs #Dispo: Likely D/.C in am Visit type - Emergency Visit Emergency Visit: No - New Patient This patient is new to me today: No - Critical Care Critical Care patient: No - Discharge Referral Referred to [facility] No ATTENDING PHYSICIAN STATEMENT I saw and evaluated the patient. I reviewed the resident's note and discussed the case with the resident. I agree with the resident's findings and plan as documented. SUBJECTIVE: OBJECTIVE: ASSESSMENT AND PLAN:
[2020-02-21] MEDS: oxyCODONE HCL 5 MG TABLET PO PRN ×2 (01:55→09:39)
[2020-02-21] MEDS: INSULIN SLIDING SCALE (NOVOLOG) 1 VIAL SQ SCH ×2 (06:20→10:57)
[2020-02-21] MEDS: GABAPENTIN 300 MG CAPSULE PO SCH ×2 (06:21→13:22)
[2020-02-21] MEDS: PORTA CATH FLUSH 10 ML IVPUSH PRN (06:29)
--- NOTE | 2020-02-21 08:37 | PN ---
Progress Note (short form) - Note Progress Note: VASCULAR SURGERY POD #1 s/p Permacath exchange Alert. No complaints. AVSS. Afebrile. Gen: nad Chest: Right chest wall permacath dressing c/d/i. No hematoma. Left chest port being utilized for IV medication/therapy A/P: 31 yo female POD #1 s/p Permacath exchange due to clotted catheter. Right hand dominant. - cleared for dc home from surgery - patient has appointment with Dr. Hall for LUE vein mapping as out-patient to begin pre-op planning for AVF (elective out-patient) - abov eplan discussed with Dr. Hall and agrees.
[2020-02-21] MEDS: MONTELUKAST NA 10 MG TABLET PO SCH (09:39)
[2020-02-21] MEDS: PANTOPRAZOLE 40 MG TABLET PO SCH (09:39)
[2020-02-21] MEDS: PARoxetine HCL 10 MG TABLET PO SCH (09:39)
[2020-02-21] MEDS: BUDESONIDE/FORMETEROL FUMARATE 80/4.5 mcg INHALER IH SCH (09:40)
[2020-02-21] MEDS ORDERED: LOSARTAN POTASSIUM 50 MG TABLET PO SCH (10:00)
[2020-02-21 10:30] VITALS: BP 127/78
--- NOTE | 2020-02-21 12:09 | PN ---
Progress Note, Physician History of Present Illness: Seen and examined at the bedside no acute complaints s/p dialysis yesterday via tunneled catheter no sob, cp, fever, chills - Current Medication List Current Medications: Active Medications Bismuth Subsalicylate (Pepto-Bismol -) 524 mg PO DAILY PRN PRN Reason: DIARRHEA Last Admin: 02/19/20 16:00 Dose: 524 mg Documented by: Budesonide/Formoterol Fumarate (Symbicort 80/4.5mcg -) 2 puff IH BID [facility] Last Admin: 02/21/20 09:40 Dose: 2 puff Documented by: Fentanyl (Sublimaze Injection -) 50 mcg IVPUSH [id number] PRN PRN Reason: PAIN-PACU ORDER X 4 DOSES ONLY Gabapentin (Neurontin -) 600 mg PO TID [facility] Last Admin: 02/21/20 06:21 Dose: 600 mg Documented by: IV Flush (Fawn-Cath Flush) 10 ml IVPUSH PRN PRN PRN Reason: protocol, maintain patency Last Admin: 02/21/20 06:29 Dose: 10 ml Documented by: Lactated Ringer's (Lactated Ringers Solution) 1,000 mls @ 125 mls/hr IV ASDIR [facility] Last Admin: 02/20/20 15:36 Dose: 125 mls/hr Documented by: Sodium Chloride (Normal Saline -) 250 mls @ 3,000 mls/hr IV PRN PRN PRN Reason: Hypotension during Dialysis Stop: 02/21/20 14:47 Insulin Aspart (Novolog Vial Sliding Scale -) 1 vial SQ [facility]; Protocol Last Admin: 02/21/20 10:57 Dose: Not Given Documented by: Losartan Potassium (Cozaar -) 50 mg PO DAILY [facility] Last Admin: 02/21/20 09:39 Dose: 50 mg Documented by: Montelukast Sodium (Singulair -) 10 mg PO DAILY [facility] Last Admin: 02/21/20 09:39 Dose: 10 mg Documented by: Ondansetron HCl (Zofran Injection) 4 mg IVPUSH Q6H PRN PRN Reason: NAUSEA AND/OR VOMITING Oxycodone HCl (Roxicodone -) 5 mg PO Q6H PRN PRN Reason: PAIN LEVEL 7 - 10 Last Admin: 02/21/20 09:39 Dose: 5 mg Documented by: Pantoprazole Sodium (Protonix -) 40 mg PO DAILY [facility] Last Admin: 02/21/20 09:39 Dose: 40 mg Documented by: Paroxetine HCl (Paxil -) 10 mg PO DAILY [facility] Last Admin: 02/21/20 09:39 Dose: 10 mg Documented by: - Objective Vital Signs: Vital Signs Temperature 98.9 F 02/21/20 10:00 Pulse Rate 88 02/21/20 10:00 Respiratory Rate 02/21/20 10:00 Blood Pressure 127/78 02/21/20 10:00 O2 Sat by Pulse Oximetry (%) 98 02/21/20 10:00 Constitutional: Yes: No Distress, Calm Neck: Yes: Supple Cardiovascular: Yes: Regular Rate and Rhythm Gastrointestinal: Yes: Soft Extremities: No: Cyanosis Labs: CBC, BMP 02/20/20 05:47 02/20/20 16:00 INR, PTT INR 0.87 (0.83-1.09) 02/20/20 10:52 Assessment/Plan 40 y/o female PMH ESRD on HD 2/2 PCKD, cervical cancer (on CTx, last dose 02/02), DM 1, Bipolar Disorder/Depression/Anxiety, asthma admitted for HD and blood transfusion. 1. Anemia 2. ESRD on HD 3. Cervical Ca 4. PCKD 5. Depression/anxiety Tolerated dialysis well yesterday via new catheter Can resume dialysis as an outpatient on s/p PRBC transfusion by Oncology earlier this admisson to continue chemo and radiation therapy as outpatient stable for discharge Brian Dahl DO
[2020-02-21 12:30] VITALS: BMI 35.7
--- NOTE | 2020-02-21 12:41 | DS ---
Physical Exam: SUBJECTIVE: Patient seen and examined at bedside. Permacath replacement today. S/p HD yesterday after procedure. OBJECTIVE: Vital Signs Period Temp Pulse Resp BP Sys/Farah Pulse Ox Last 24 Hr 97.8 F-99.5 F 82-95 18-20 117-172/67-100 97-99 PHYSICAL EXAM GENERAL: No acute distress HEAD: Normal with no signs of trauma. EYES: EOMI Sclera Clear CHEST: Port left upper chest. Permacath right upper chest LUNGS: CTAB anteriorly HEART: RRR S1S2 ABDOMEN: TTP suprapubic area. No rebound, guarding, or rigidity. BS+. EXTREMITIES: No edema b/l PSYCH: Normal mood, normal affect. SKIN: Warm, dry, normal turgor, no rashes or lesions noted LABS Laboratory Results - last 24 hr 02/17/20 02/20/20 02/20/20 16:11 16:00 17:11 Sodium 136 Potassium 4.1 Chloride 105 Carbon Dioxide 24 Anion Gap 8 BUN 44.5 H Creatinine 5.1 H Est GFR (CKD-EPI)AfAm 11.46 Est GFR (CKD-EPI)NonAf 9.89 POC Glucometer 206 Random Glucose 210 H Calcium 7.5 L Blood Type O POSITIVE Antibody Screen Negative Crossmatch See Detail 02/20/20 02/21/20 02/21/20 22:36 05:34 10:54 Sodium Potassium Chloride Carbon Dioxide Anion Gap BUN Creatinine Est GFR (CKD-EPI)AfAm Est GFR (CKD-EPI)NonAf POC Glucometer 182 200 180 Random Glucose Calcium Blood Type Antibody Screen Crossmatch HOSPITAL COURSE: Date of Admission:02/17/20 Patient is a 40-year-old female with a past medical history of ESRD, stage IIIb cervical cancer on carboplatin and radiotherapy, DM 1, bipolar/depression/anxiety, and asthma who was admitted for elective transfusion of RBCs and replacement of a clotted permacath. Patient received 1 unit of PRBC (HGB 9.2 on admission). Patient also went to O.R and had her permacath exchanged; patient underwent HD that same day and was discharged the following day so that she may go to her outpatient radiation therapy treatment session. Date of Discharge: 02/21/20 Minutes to complete discharge: 35 Discharge Summary Problems reviewed: Yes Reason For Visit: ANEMIA Condition: Improved - Instructions Diet, Activity, Other Instructions: You presented to the hospital for chemotherapy. You were noted to have a low blood count. You received a blood transfusion. You also were noted to have a malfunctioning permacath. This was replaced by the surgeon. Please resume all of your home medications as prescribed. You are scheduled for outpatient radiation therapy today. Please continue to follow up with your Oncologist regularly Can resume dialysis as an outpatient on You have an appointment with Dr Hall for out-patient LUE vein mapping for pre- op planning AVF. Please return to the hospital if you begin to experience shortness of breath, chest pain, nausea/vomiting/ dizziness, or any other abnormal symptoms. Referrals: Kelsi Perla MD [Staff Physician] - 1 Week Guillermo Hall DO [Staff Physician] - Disposition: VNS/HOME HEALTH CARE - Home Medications Comprehensive Discharge Medication List: Ambulatory Orders Albuterol 0.083% Nebulizer Sarina [Ventolin 0.083% Nebulizer Soln -] 1 neb NEB Q6H PRN 10/06/17 Budesonide/Formeterol Fumarate [SYMBICORT 80/4.5mcg -] 2 puff IH BID 10/06/17 Insulin Glargine,Hum.rec.anlog [Lantus] 50 unit SQ BID 10/06/17 Insulin Lispro [Humalog] 30 unit SQ TID 04/18/18 Esomeprazole Magnesium [Nexium 24Hr] 40 mg PO DAILY 05/28/18 Gabapentin [Neurontin] 600 mg PO TID 10/09/19 Sevelamer Carbonate [Renvela -] 800 mg PO TIDCM #90 tab 10/12/19 Paroxetine HCl [Paxil -] 10 mg PO DAILY 11/18/19 Acetaminophen [Tylenol .Extra-Strength -] 2 tab PO PRN 01/16/20 Oxycodone HCl [Roxicodone] 5 mg PO ASDIR 02/03/20 Ferrous Sulfate [Feosol] 325 mg PO DAILY 02/06/20 Folic Acid - 1 mg PO DAILY #30 tablet 02/06/20 Losartan Potassium 50 mg PO DAILY 02/06/20 Montelukast Sodium [Singulair] 10 mg PO DAILY 02/06/20 This patient is new to me today: No Emergency Visit: No Critical Care patient: No - Discharge Referral Referred to [facility] No ATTENDING PHYSICIAN STATEMENT I saw and evaluated the patient. I reviewed the resident's note and discussed the case with the resident. I agree with the resident's findings and plan as documented. SUBJECTIVE: OBJECTIVE: ASSESSMENT AND PLAN:
[2020-02-21] MEDS: LACTATED RINGERS SOLUTION 1,000 ML IV SCH (13:22)
--- NOTE | 2020-02-21 13:24 | PN ---
Teaching Attending Note Name of Resident: Zion Conner ATTENDING PHYSICIAN STATEMENT I saw and evaluated the patient. I reviewed the resident's note and discussed the case with the resident. I agree with the resident's findings and plan as documented. SUBJECTIVE: Seen and examined at bedside. Patient reports area around permacath placement is a little sore. Cleared for discharge by surgery. Patient is hemodynamically stable, reports diarrhea has improved. Medically cleared for discharge. Will follow-up for radiation oncology later today across the street OBJECTIVE Last Vital Signs Temp Pulse Resp BP Pulse Ox 98.9 F 88 20 127/78 98 02/21/20 12:25 02/21/20 12:25 02/21/20 12:25 02/21/20 12:25 02/21/20 12:25 PE: Per resident note Labs/Imaging: reviewed ASSESSMENT/PLAN 40-year-old female past medical history of ESRD, stage IIIb cervical cancer on carboplatin and radiotherapy, DM 1, bipolar/depression/anxiety, asthma admitted for elective transfusion of RBCs, course complicated by clotted permacath which is now been replaced.
[2020-02-21 14:35] VITALS: TEMP 98.7
[2020-02-21 15:14] VITALS: PULSE 98
--- NOTE | 2020-02-29 09:09 | OP ---
DATE OF OPERATION: 02/20/2020 PREOPERATIVE DIAGNOSIS: Clotted PermCath. POSTOPERATIVE DIAGNOSIS: Clotted PermCath. PROCEDURE: PermCath exchange. SURGEON: Guillermo Alva DO ANESTHESIA: Fractional. BLOOD LOSS: 10 mL. INDICATION: Patient is a 40-year-old female that has a right IJ PermCath and it has clotted in dialysis. It was decided that she would need a PermCath exchange. Patient was consented for the procedure, understanding all risks, benefits, alternatives, and then taken to the operating room. DESCRIPTION OF PROCEDURE: Once in the operating room, laid on the operating table in the supine manner. The areas of the right neck and chest were prepped and draped in a sterile surgical manner. We then went ahead and injected 10 mL of lidocaine 1% at the area of the cuff site. We then dissected the cuff out to make sure it was free from the skin. We then placed a 0.035 floppy guidewire through the PermCath. PermCath was pulled and removed. We then went ahead and changed our gloves for sterility sake and placed Betadine on our wire. We then used a new 23 PermCath, placed it over the guidewire and into the vein and into the chest under fluoroscopy. We then guido back on each port of the PermCath. There was good flow. Heparinized saline was injected; 2000 units of IV heparin was injected into each port as well. We then used 4-0 Biosyn and 2 simple stitches were placed at the cuff exit site, 3-0 nylon used and the catheter attached to the skin. Biopatch, 4 x 4, Tegaderms were placed. Patient tolerated the procedure with no complications. Patient transferred to PACU in stable condition where a chest x-ray will be ordered. GUILLERMO ALVA DO [employer]IDE [employer]/[id number]
== END 2020-02-21 15:37 | disposition home health service (06) | DRG 182 ==
LOC: SUATTDRO 15:45 → JONCBLOOD 15:45 → J7W 15:46 → UNDOADMIN 02-18 19:40 → J7W 02-18 19:40
PROVIDERS: ADMIT Internal Medicine Hematology & Oncology; ATTEND Internal Medicine
PROC: 30233N1 Transfusion of Nonautologous Red Blood Cells into Peripheral Vein, Percutaneous Approach (ICD-10-PCS; 2020-02-17)
PROC: 05PY33Z Removal of Infusion Device from Upper Vein, Percutaneous Approach (ICD-10-PCS; 2020-02-20)
PROC: 05HY33Z Insertion of Infusion Device into Upper Vein, Percutaneous Approach (ICD-10-PCS; principal; 2020-02-20 13:00)
DX: T82.898A Other specified complication of vascular prosthetic devices, implants and grafts, initial encounter (principal); D64.81 Anemia due to antineoplastic chemotherapy; J45.909 Unspecified asthma, uncomplicated; F41.8 Other specified anxiety disorders; F31.9 Bipolar disorder, unspecified; D63.8 Anemia in other chronic diseases classified elsewhere; C53.9 Malignant neoplasm of cervix uteri, unspecified; D63.0 Anemia in neoplastic disease; E88.09 Other disorders of plasma-protein metabolism, not elsewhere classified; D63.1 Anemia in chronic kidney disease; N18.6 End stage renal disease; Q61.2 Polycystic kidney, adult type; D69.59 Other secondary thrombocytopenia; E11.52 Type 2 diabetes mellitus with diabetic peripheral angiopathy with gangrene; E46 Unspecified protein-calorie malnutrition; K52.1 Toxic gastroenteritis and colitis; Y83.9 Surgical procedure, unspecified as the cause of abnormal reaction of the patient, or of later complication, without mention of misadventure at the time of the procedure
CPT/HCPCS: 36415; 36430; 71045-TC-FY; 76000-TC-FY; 80048; 80053; 82962; 83735; 85025; 85027; 85610; 86022; 86850; 86900; 86901; 86922; J0131; J1644; P9058; U0003

== ENCOUNTER 2020-02-22 07:17 | Day surgery (SDC) | payer OTHER ==
--- OUTSIDE RECORDS SUMMARY | 2020-02-22 07:23 | XMS ---
[...] is protected by Article 27-F of the [place] Public Health law. If you continue you may haveaccess to information: Regarding HIV / AIDS; Provided by facilities licensed or operated by the [facility] Office of Mental Health; or Provided by the [facility] Office for People With Developmental Disabilities. If such information is present, then the following [facility] mandated warning applies: This information has [...] law may result in a fine or snf sentence or both. A general authorization for the release of medical or other information is NOT sufficient authorization for further disclosure. Allergies and Adverse Reactions Type Description Substance Reaction Status Data Source(s ) Drug allergy Augmentin Amoxicillin 500 MG rash Active eCW2 ([facility] / Clavulanate 125 [place] [facility]alth MG Oral Tablet Care) [Augmentin] Food allergy No Known Food No Known Food [facility] Drug allergy No Known Drug No Known Drug [facility] Drug allergy Augmentin Amoxicillin / rash Active eCW3 ([facility] Clavulanate [facility]) Encounters Encounter Providers Location Date Indications Data Source(s ) Outpatient 01/09/2020 12:46:00 CERVICAL CA [facility] PM EDT CERVICAL CA Outpatient Attender: [facility] 08/03/2019 04:32:19 PM GSI ([facility] EDT Collaborative) Patient admitted. Outpatient Attender: [facility] 08/03/2019 04:32:06 PM GSI ([facility] EDT Collaborative) Patient admitted. Outpatient Attender: [facility] 08/03/2019 04:31:35 PM GSI ([facility] EDT Collaborative) Patient admitted[facility] Outpatient [facility] 10/26/2018 12:00:00 eCW3 ([facility] A28 AM EDT - 10/26/2018 [facility] 12:00:00 AM EDT Care) Emergency H 07/11/2018 02:46:00 [facility] 05/08/2018 12:00:0 0 eCW2 ([facility] AM EST [facility] 05/07/2018 12:00:00 eCW2 ([facility] EST [facility]) [facility] 04/17/2018 12:00: 00 eCW2 ([facility] AM EST [facility]) [facility] 03/23/2018 12:00: 00 eCW2 ([facility] AM EDT [facility] Janeen [place] 02/25/2018 12:00:00 eCW2 ([facility] AM EDT [facility]) Silvia Freemanleopoldo [place] 02/12/2018 12:00: 00 eCW2 ([facility] AM EDT [facility]) Silvia Freemanleopoldo Yu 01/20/2018 12:00: 00 eCW2 ([facility] AM EDT [facility]) Silvia Freemanleopoldo Yu 10/26/2017 12:00: 00 eCW2 ([facility] AM EDT [facility]) Silvia Pachecomonica Yu 10/13/2017 12:00: 00 eCW2 ([facility] AM EDT [facility]) Silvia Pachecomonica Yu 10/09/2017 12:00: 00 eCW2 ([facility] AM EDT [facility]) Silvia Pachecomonica Yu 10/06/2017 12:00: 00 eCW2 ([facility] AM EDT [facility]) Silvia Freemanleopoldo Yu 10/02/2017 12:00: 00 eCW2 ([facility] AM EDT [facility]) Silvia Pachecomonica Yu 08/06/2017 12:00: 00 eCW2 ([facility] AM EDT [facility]) Silvia De Pzanjayce Pachecomonica [place] 08/04/2017 12:00: 00 eCW2 ([facility] AM EDT [facility]) Silvia De Paznjayce Pachecomonica [place] 08/03/2017 12:00: 00 eCW2 ([facility] AM EDT [facility]) [place] [place] Janeen Yu 06/29/2017 12:00: 00 eCW2 ([facility] AM EST [facility]) Silvia Freemanleopoldo Yu 06/25/2017 12:00: 00 eCW2 ([facility] AM EST [facility]) [place] Pachecomonica Yu 04/07/2017 12:00: 00 eCW2 ([facility] AM EST [facility]) Silvia Pachecomonica Yu 03/26/2017 12:00: 00 eCW2 ([facility] AM EDT [facility] [place] Pachecomonica Yu 12/26/2016 12:00: 00 eCW2 ([facility] AM EDT [facility]) [place] Pachecomonica Yu 08/20/2016 12:00: 00 eCW2 ([facility] AM EDT [facility]) [place] Pachecomonica Yu 06/10/2016 12:00: 00 eCW2 ([facility] AM EST [facility]) [place] Pachecomonica Yu 05/21/2016 12:00: 00 eCW2 ([facility] AM EST [facility]) [place] [facility] Pachecomonica Yu 04/23/2016 12:00: 00 eCW2 ([facility] AM EST [facility]) [place] Pachecomonica Yu 04/09/2016 12:00: 00 eCW2 ([facility] AM EST [facility]) [place] Pachecomonica Yu 03/11/2016 12:00: 00 eCW2 ([facility] AM EDT [facility]) [place] Janeen Yu 02/29/2016 12:00: 00 eCW2 ([facility] AM EDT [facility]) [place] Janeen Yu 02/28/2016 12:00: 00 eCW2 ([facility] AM EDT [facility]) [place] Pachecomonica Yu 02/06/2016 12:00: 00 eCW2 ([facility] AM EDT [facility]) Silvia Freemanleopoldo [place] 12/26/2015 12:00: 00 eCW2 ([facility] AM EDT [facility]) Silvia Freemanleopoldo [place] 12/26/2015 12:00: 00 eCW2 ([facility] AM EDT [facility]) Silvia Pachecomonica Yu 12/20/2015 12:00: 00 eCW2 ([facility] AM EDT [facility]) Silvia Freemanleopoldo Yu 12/20/2015 12:00: 00 eCW2 ([facility] AM EDT [facility]) Silvia Pachecomonica Yu 06/08/2015 12:00: 00 eCW2 ([facility] AM EST [facility]) [place] Pachecomonica Yu 05/10/2015 12:00: 00 eCW2 ([facility] AM EST [facility]) [place] Pacheocmonica Yu 03/22/2015 12:00: 00 eCW2 ([facility] AM EDT [facility]) [place] Pachecomonica Yu 03/14/2015 12:00: 00 eCW2 ([facility] AM EDT [facility]) Silvia Pachecomonica Yu 01/12/2015 12:00: 00 eCW2 ([facility] AM EDT [facility]) Silvia Pachecomonica [place] 12/21/2014 12:00: 00 eCW2 ([facility] AM EDT [facility]) Silvia Workman Janeen [place] 10/03/2014 12:00: 00 eCW2 ([facility] AM EDT [facility]) [place] Janeen Yu 07/24/2014 12:00: 00 eCW2 ([facility] AM EST [facility]) [facility] 07/21/2014 12:00:00 eCW2 ([facility] AM EST [facility]) [facility] 06/27/2014 12:00: 00 eCW2 ([facility] AM EST [facility]) [facility] 05/15/2014 12:00: 00 eCW2 ([facility] AM EST [facility]) [facility] 05/13/2014 12:00: 00 eCW2 ([facility] AM EST [facility]) [facility] 05/08/2014 12:00: 00 eCW2 ([facility] AM EST [facility]) [facility] 04/17/2014 12:00: 00 eCW2 ([facility] AM EST [facility]) [facility] 04/14/2014 12:00: 00 eCW2 ([facility] AM EST [facility]) [facility] 04/13/2014 12:0 0:00 eCW2 ([facility] AM EST [facility]) [facility] 04/05/2014 12:0 0:00 eCW2 ([facility] AM EST [facility]) [facility] 03/17/2014 12:00: 00 eCW2 ([facility] AM EDT [facility]) [facility] 03/14/2014 12:00: 00 eCW2 ([facility] AM EDT [facility]) [facility] 01/20/2014 12:00: 00 eCW2 ([facility] AM EDT [facility]) [facility] 01/18/2014 12:0 0:00 eCW2 ([facility] AM EDT [facility]) Silvia Freemanleopoldo Yu 01/05/2014 12:00: 00 eCW2 ([facility] AM EDT [facility]) Silvia Pachecomonica Yu 10/25/2013 12:00: 00 eCW2 ([facility] AM EDT [facility]) Silvia Pachecomonica Yu 09/27/2013 12:00: 00 eCW2 ([facility] AM EDT [facility]) [place] Pachecom[place] Yu 08/05/2013 12:00: 00 eCW2 ([facility] AM EDT [facility]) [place] Pachecomonica Yu 07/21/2013 12:00: 00 eCW2 ([facility] AM EST [facility]) [place] Pachecomonica Yu 07/01/2013 12:00: 00 eCW2 ([facility] AM EST [facility]) [place] Pachecomonica Yu 06/30/2013 12:00: 00 eCW2 ([facility] AM EST [facility]) [place] Pachecomonica Yu 06/09/2013 12:00: 00 eCW2 ([facility] AM EST [facility]) Silvia Pachecomonica Yu 05/16/2013 12:00: 00 eCW2 ([facility] AM EST [facility]) [place] Pache[place] Yu 02/22/2013 12:00: 00 eCW2 ([facility] AM EDT [facility]) Silvia Workman Janeen Yu 01/03/2013 12:00: 00 eCW2 ([facility] AM EDT [facility]) [place]via De Paznkers Janeen Yu 12/01/2012 12:00: 00 eCW2 ([facility] AM EDT [facility]) [place] 11/03/2012 12:00: 00 eCW2 ([facility] AM EDT [facility]) [place] 09/30/2012 12:00: 00 eCW2 ([facility] AM EDT [facility]) Silvia [place] 09/21/2012 12:00: 00 eCW2 ([facility] AM EDT [facility]) [place] 09/17/2012 12:00: 00 eCW2 ([facility] AM EDT [facility]) [place] [facility] [place] 09/10/2012 12:00: 00 eCW2 ([facility] AM EDT [facility]) [place] 06/30/2012 12:00: 00 eCW2 ([facility] AM EST [facility]) [facility] Jacinta Freemann [place] 03/04/2012 12:00: 00 eCW2 ([facility] AM EDT [facility]) [facility] 02/19/2012 12:00:00 eCW2 ([facility] AM EDT [facility]) [facility] 01/16/2012 12:00:00 eCW2 ([facility] AM EDT [facility]) [facility] 01/15/2012 12:00:00 eCW2 ([facility]/11[facility]2011 12:00:00 eCW2 ([facility] AM EDT [facility]) [facility] Jacinat Freemann [place] 07/15/2011 12:00: 00 eCW2 ([facility] AM EST [facility]) [facility] Jacinta Pachecolyn [place] 07/12/2011 12:00: 00 eCW2 ([facility] AM EST [facility]) [facility] 12/03/2010 12:00:00 eCW2 ([facility] AM EDT [facility]) [facility] 11/19/2010 12:00:00 eCW2 ([facility] AM EDT [facility]) [facility] 11/18/2010 12:00:00 eCW2 ([facility] AM EDT [facility]) [facility] 08/26/2010 12:00:00 eCW2 ([facility] AM EDT [facility]) [facility] 08/23/2010 12:00:00 eCW2 ([facility] AM EDT [facility]) [facility] 07/26/2010 12:00:00 eCW2 ([facility] AM EST [facility]) [facility] 07/25/2010 12:00:00 eCW2 ([facility] AM EST [facility]) [facility] 07/23/2010 12:00:00 eCW2 ([facility] AM EST [facility]) [facility] 05/08/2010 12:00:00 eCW2 ([facility] AM EST [facility]) [facility] 05/07/2010 12:00:00 eCW2 ([facility] AM EST [facility]) [facility] 05/07/2010 12:00:00 eCW2 ([facility] AM EST [facility]) [facility] 04/10/2010 12:00:00 eCW2 ([facility] AM EST [facility]) [facility] 04/03/2010 12:00:00 eCW2 ([facility] AM EST [facility]) [facility] 03/18/2010 12:00:00 eCW2 ([facility] AM EDT [facility]) [facility] 03/07/2010 12:00:00 eCW2 ([facility] AM EDT [facility]) [facility] 03/06/2010 12:00:00 eCW2 ([facility] AM EDT [facility]) [facility] 03/05/2010 12:00:00 eCW2 ([facility] AM EDT [facility]) [facility] 02/28/2010 12:00:00 eCW2 ([facility] AM EDT [facility]) [facility] 02/27/2010 12:00:00 eCW2 ([facility] AM EDT [facility]) [facility] 01/07/2010 12:00:00 eCW2 ([facility] AM EDT [facility]) [facility] 12/13/2009 12:00:00 eCW2 ([facility] AM EDT [facility]) [facility] 09/10/2009 12:00:00 eCW2 ([facility] AM EDT [facility]) [facility] 09/06/2009 12:00:00 eCW2 ([facility] AM EDT [facility]) [facility] 09/05/2009 12:00:00 eCW2 ([facility] AM EDT [facility]) [facility] 06/15/2009 12:00:00 eCW2 ([facility] AM EST [facility] 01/26/2009 12:00:00 eCW2 ([facility] 11/22/2008 12:00:00 eCW2 ([facility] AM EDT [facility]) Immunizations Vaccine Date Status Description Data Source(s) New in 2011. IIV4 07/11/2017 completed [facility] 01:18:00 PM EST Center Note that this vaccine 05/04/2016 completed [facility] name has changed. See 03:04:00 PM EST Ce nter also Td (adult). It is not adsorbed. No Known Immunizations completed eCW2 ([facility]) Medications Medication Brand Start Product Dose Route Administrative Pharmacy at Indications Reaction Description Data Name Date Form Instructions Instructions Source(s) Paroxetine Paxil .0 Oral active NETS MART 10 MG Oral 2020 Table ([facility] [Paxil] 00 AM [facility] EDT Services) Paroxetine Paxil .0 Oral active NETS MART 10 MG Oral 2020 Table ([facility] 04:[facility] [Paxil] 00 AM [facility] EDT Services) Naphazoline [...] Table ([facility] 05:[facility] [Paxil] 00 AM [facility] EST Services) Paroxetine Paxil .0 Oral active NETS MART 10 MG Oral 2020 Table ([facility] 05:[facility]: [facility] [Paxil] 00 AM Community EST Services) Acetaminoph [...] [place] [Paxil] _[facility]_ [facility] ng} 200 ACTUAT Ventol active 2 puffs eC W2 Albuterol in HFA ([facility] 0.09 108 [place] MG/ACTUAT (90 Health Metered Base) Care) Dose MCG/AC Inhaler T [Ventolin] Ventolin HFA 108 (90 Base) MCG/ACT Sertraline Zoloft active 2 tablet e CW2 100 MG Oral 100 mg ([place] [facility] [place] [Zoloft] [facility] Zoloft 100 Care) mg Iron [...] CW2 0.5 MG [facility] [place] [Klonopin] [facility] Klonopin Care) 0.5 mg 3 ML HumaLO active sliding eCW2 Insulin G scale up to ([place] Lispro 100 KwikPe 10 units Jomar er UNT/ML Pen n 100 Health Injector UNIT/M Care) [Humalog] L HumaLOG KwikPen 100 UNIT/ML aripiprazol Abilif active 1 tablet eCW2 e 10 MG y 10 ([facility] Oral Tablet MG [place] [Abilify] [facility] Abilify 10 Care) MG Losartan Losart 1.0 active Losartan eCW 3 Potassium an {tabl Potassium 50 ( [facility]o 50 MG Oral Potass et} MG [facility] Tablet ium 50 [facility] Care) Depo UNK active as directed eCW2 Provera ([place] [facility] Health Injection Care) 150 MG/ML Depo UNK active as directed eCW2 Provera ([place] [facility] Injection Care) 150 MG/ML Insurance Providers Payer name Policy type Policy ID Covered Covered green party's Policy P hcas / Coverage green party ID relationship to [facility] ormation type charles [facility] MEDICAID [id number] SP [id number] [facility] MEDICAID [id number] SP [id number] [facility] MEDICA[place] [id number] SP [id number] [place] [id number] PT [id number] 500 [facility] O [id number] 01 [id number] W [id number] 01 [id number] [facility] [id number] 01 [id number] 500 [facility] ACUTE Problems, Conditions, and Diagnoses Code Display Name Description Problem Type Effective Data Dates Source(s) N92.1 Menorrhagia with Menorrhagia with Problem 08/25/2019 eC W3 ([facility] irregular cycle irregular cycle 12:00:00 AM [facility] EDT Care) J45.40 Moderate persistent Moderate persistent Problem 020 eCW3 ([facility] asthma without asthma without 12:00:[address] [facility] complication complication EST Care) G62.9 Polyneuropathy Polyneuropathy Problem 10/26/2018 eCW3 ( [facility] 12:00:[address] [facility] EDT Care) I10 Essential Essential Problem 10/26/2018 eCW3 ([facility] hypertension hypertension 12:00:[address] [facility] EDT Care) E66.01 Morbid obesity Morbid obesity Problem 10/26/2018 eCW3 ( [facility] 12:00:[address] [facility] EDT Care) D64.9 Anemia Anemia, unspecified Problem 09/30/2018 eCW3 ([facility] 12:00:[address] 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 EDT Care) N93.9 Vaginal bleeding Vaginal bleeding Problem 10/06/2017 eC W2 ([facility] 12:00:[address] [facility] EDT Care) E66.8 Obesity Other obesity Problem 10/06/2017 eCW2 ([place] 12[facility] 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 EDT Care) J45.41 Moderate persistent Moderate persistent Problem 018 eCW3 ([facility] asthma with acute asthma with acute 12:00:[address] [facility] exacerbation exacerbation EDT Care) E11.65 Type 2 diabetes Type 2 diabetes Problem 08/03/2017 eCW3 ([facility] mellitus with mellitus with 12:00:00 AM [facility] hyperglycemia hyperglycemia EDT Care) J45.41 Moderate persistent Moderate persistent Problem 018 eCW2 ([facility] asthma with acute asthma with acute 12:00:[address] [facility] exacerbation exacerbation EDT Care) E11.65 Type 2 diabetes Type 2 diabetes Problem 08/03/2017 eCW2 ([facility] mellitus with mellitus with 12:00:00 AM [facility] hyperglycemia hyperglycemia EDT Care) Z79.4 detention current detention current Problem 08/03/2017 eCW2 ([facility] use of insulin use of insulin 12:00:[address] [facility] EDT Care) Q61.00 Renal cyst Renal cyst Problem 08/20/2016 eCW3 ([facility] 12:00:[address] [facility] EDT Care) Q61.00 Renal cyst Renal cyst Problem 08/20/2016 eCW2 ([facility] 12:00:[address] [facility] EDT Care) E11.9 Diabetes mellitus Type 2 diabetes Problem 08/20/2016 eC W2 ([facility] type 2 mellitus with goal 12:00:[address] [facility] of symptom EDT Care) management G62.9 Peripheral Peripheral Problem 05/21/2016 eCW2 ([facility] neuropathy neuropathy 12:00:00 AM [facility] EST Care) K30 Dyspepsia Dyspepsia Problem 05/21/2016 eCW2 ([facility] 12:00:[address] [facility] EST Care) E11.9 Diabetes mellitus Diabetes Problem 05/10/2015 eCW2 ([facility] without complication 12:00:00 AM [facility] EST Care) J45.901 Asthma exacerbation Asthma exacerbation Problem 015 eCW2 ([facility] 12:00:[address] [facility] EDT Care) 590.80 Pyelonephritis Pyelonephritis Problem 06/27/2014 eCW2 ( [place] 12:00:00 AM [facility] Care) 493.92 Exacerbation of Asthma exacerbation Problem 10/25/2013 eCW2 ([place] asthma 12:00:[address] [facility] EDT Care) 477.9 Allergic rhinitis ALLERGIC RHINITIS Problem eCW2 ([place] NOS [facility]) 285.9 Anemia Anemia Problem eCW2 ([facility]) 493.90 Asthma without Asthma Intermittent Problem e CW2 ([place] status asthmaticus [facility]) 401.9 Essential Essential Problem eCW2 ([place] hypertension Hypertension, 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 Q61.02 Diagnosis 01/09/2020 [place] renal cysts 12:46:00 PM Hospital EDT N20.0 Calculus of kidney N20.0 Diagnosis 01/09/2020 [place] 12:46:00 PM Hospital EDT J90 Pleural effusion, J90 Diagnosis 01/09/2020 [place] not elsewhere 12:46:00 PM Hospital classified EDT I31.3 Pericardial effusion I31.3 Diagnosis 01/09/2020 [place] (noninflammatory) 12:46:00 PM Hospit al EDT I51.7 Cardiomegaly I51.7 Diagnosis 01/09/2020 [place] 12:46:00 PM Hospital EDT R91.8 Other nonspecific R91.8 Diagnosis 01/09/2020 [place] abnormal finding of 12:46:00 PM Hosp ital lung field EDT C53.9 Malignant neoplasm C53.9 Diagnosis 01/09/2020 [place] of cervix uteri, 12:46:00 PM Hospita l unspecified EDT Surgeries/Procedures Procedure Description Date Indications Data Source(s) CUL [id number] [id number] 02/25/2018 eCW2 ([facility] ORGANISM SCRN W/COLONY 12:00:00 AM EDT He alth Care) ESTIMJ Results ID Date Data Source [id number] 02/04/2020 05:10:00 PM EDT [facility] Name Value Range Interpretation Description Data Sup porting Code Source(s) Document(s ) SARS [facility] coronavirus 2 RNA This lab was ordered by [facility] and reported by [facility]. ID Date Data Source [id number] 01/13/2020 10:30:00 AM EDT [facility] Name Value Range Interpretation Description Data Sup porting Code Source(s) Document(s ) SARS [facility] coronavirus 2 RNA This lab was ordered by [facility] and reported by [facility]. ID Date Data Source [id number] 12/26/2019 05:45:00 PM EDT [facility] Name Value Range Interpretation Description Data Sup porting Code Source(s) Document(s ) SARS [facility] coronavirus 2 RNA This lab was ordered by [facility] and reported by [facility]. ID Date Data Source [id number] 12/20/2019 06:45:00 PM EDT [facility] Name Value Range Interpretation Description Data Sup porting Code Source(s) Document(s ) SARS [facility] coronavirus 2 RNA This lab was ordered by [facility] and reported by [facility]. ID Date Data Source [id number] 11/17/2019 11:25:00 PM EDT [facility] Name Value Range Interpretation Description Data Sup porting Code Source(s) Document(s ) SARS [facility] CORONAVIRUS 2 RNA This lab was ordered by [facility] [facility] and reported by [facility]. ID Date Data Source [id number] 10/08/2019 03:15:00 PM EDT [facility] Name Value Range Interpretation Description Data Sup porting Code Source(s) Document(s ) SARS [facility] CORONAVIRUS 2 RNA This lab was ordered by [facility] and reported by [facility]. ID Date Data Source Liver Profile 07/11/2018 04:15:00 PM EST [facility] Name Value Range Interpretation Description Data Sup [...] Data Source HematologyRou 07/11/2018 04:15:00 PM EST [facility] Name Value Range Interpretation Description Data Sup [...] Date Data Source GFR(Creatinine) 07/11/2018 04:15:00 PM Health system Name Value Range Interpretation Code Description Data Radha rce(s) Supporting Document(s ) UNK > 60 Below low normal <content [facility] styleCode="Bold"> Medical Cent er EGFR </content>39 GFR L<content styleCode="Italic s"> (> 60 GFR)</content> ID Date Data Source [id number] 07/11/2018 04:15:00 PM Health system Name Value Range Interpretation Description Data Sup porting Code Source(s) Document(s ) Lipase 23-300 <content [facility] [Enzymatic styleCode="Bold Medical activity/vo ">Lipase Center lume] in </content>49 Serum or IU/L<content Plasma styleCode="Ital ics"> (23-300 IU/L)</content> ID Date Data Source BMP 07/11/2018 04:15:00 PM Health system Name Value Range Interpretation Description Data Sup [...] IU/L)</content> Alkaline 38-126 <content [facility] phosphatase styleCode="Bold"> [facility] [Enzymatic Alkaline Medical activity/volume] Phosphatase (ALP) [...] Data Source Urinalysis 07/11/2018 03:50:00 PM EST [facility] Name Value Range Interpretation Description Data Sup [...] by Test d">Urine Medical strip Specific Center [place] </content>1.02 5 NM<content styleCode="Cheryl lics"> (1.015-1.025 NM)</content> [...] HPF)</content> Nitrite NEGATIVE <content [facility]] in styleCode="Antoniteta Bhavani Urine by Test d">Urine Medical strip [...] GROUP A 02/25/2018 12:00:00 AM EDT eCW2 ([facility]A-HEMOLYT[facility]) Name Value Range Interpretation Description Data Sup porting Code Source(s) Document(s ) Streptococcus NEGATIVE NEGATIVE STREP, GRP.A, eCW2 pyogenes DNA (Polo [Presence] in [facility]) specific culture ID Date Data Source Rapid Strep A, In House.0 02/25/2018 12:00:00 AM EDT eCW2 ([facility]) Name Value Range Interpretation Description Data Sup porting Code Source(s) Document(s ) negative negative - Rapid Strep A eCW2 ([facility]) Procedure Social History Code Duration Value Status Description Data Source(s ) Smoking 09/08/2019 Former Sm[facility] Smoking 07/11/2018 Former Smoker completed Former Smoker [place] [facility] 03:39:00 PM EST Medical C enter Smoking 07/11/2018 Former Smoker completed Former Smoker [place] [facility] 03:22:00 PM EST Medical C enter Smoking 07/11/2018 Former Smoker completed Former Smoker [facility] 02:52:00 PM EST Medical C enter Former Smoker completed Former Smoker eCW3 ([facility]) Smoking Unknown if ever completed Unknown if ever eCW2 ([facility]) Vital Signs ID Date Data Source UNK Name Value Range Interpretation Code Description Data Source(s) Diastolic blood 78 mm[Hg] 78 mm[Hg] eCW3 ([facility]) Systolic blood 123 mm[Hg] 123 mm[Hg] eCW3 ([facility]) Body temperature 97.6 [degF] 97.6 [degF] eCW3 ( [facility]) Heart rate 18 /min 18 /min eCW3 ([facility]) Body mass index 42.53 kg/m2 42.53 kg/m2 eCW3 ([facility] (BMI) [Ratio] [facility]) Body weight 242.0 242.0 [lb_av] eCW3 ([facility] [lb_av] [facility]) Body height 63.25 [in_i] 63.25 [in_i] eCW3 ([facility]) Body temperature 37.012806 37.359767 [facility] Respiratory rate 18 /min 18 /min [facility] Oxygen saturation 98 % 98 % [facility] blood [facility] by Pulse oximetry Heart rate 82 /min 82 /min [facility] Diastolic blood 76 mm[Hg] 76 mm[Hg] [facility] Systolic blood 139 mm[Hg] 139 mm[Hg] [facility] Body temperature 36.568395 36.454533 [facility] Respiratory rate 18 /min 18 /min [facility] Oxygen saturation 98 % 98 % [facility]ph[facility] in Arterial blood Medical Center by Pulse oximetry Heart rate 80 /min 80 /min [facility] Diastolic blood 78 mm[Hg] 78 mm[Hg] [facility] Systolic blood 140 mm[Hg] 140 mm[Hg] [facility] Body weight 92.003627 kg 92.137489 kg [facility] Body temperature 36.040352 36.754394 [facility] Respiratory rate 17 /min 17 /min [facility] Oxygen saturation 100 % 100 % [facility] in Arterial blood [facility] by Pulse oximetry Heart rate 101 /min 101 /min [facility] Body height 162.182796 162.268157 cm [facility] Diastolic blood 75 mm[Hg] 75 mm[Hg] [facility] Systolic blood 137 mm[Hg] 137 mm[Hg] [facility] Body mass index 35.1 kg/m2 35.1 kg/m2 [facility] (BMI) [Ratio] Medical [facility] ter Diastolic blood 82 mm[Hg] 82 mm[Hg] eCW2 ([facility]) Systolic blood 129 mm[Hg] 129 mm[Hg] eCW2 ([facility]) Body temperature 100.4 [degF] 100.4 [degF] eCW2 ([facility]) Body mass index 37.42 kg/m2 37.42 kg/m2 eCW2 ([facility] (BMI) [Ratio] [facility]) Body weight 218 [lb_av] 218 [lb_av] eCW2 ([facility]) Body height 64 [in_us] 64 [in_us] eCW2 ([facility]) Patient Treatment Plan of Care Planned Activity Planned Date Details Description Data Source (s) Naphazoline Hydrochloride 09/08/2019 12:00:00 eCW3 ([facility] 0.25 MG/ML / Pheniramine AM EDT [facility]) Maleate 3 MG/ML Ophthalmic Solution [Naphcon A]
[2020-02-22] MEDS ORDERED: PALONOSETRON HCL 0.25 MG/5 ML VIAL IVPUSH ONE (10:00)
[2020-02-22] MEDS ORDERED: DEXAMETHASONE SODIUM PHOSPHATE 12 MG in SODIUM CHLORIDE 50 ML IVPB ONE (10:00)
[2020-02-22] MEDS ORDERED: CARBOPLATIN IVPB ONE (10:30)
[2020-02-22] MEDS ORDERED: SODIUM CHLORIDE IVPB ONE (10:30)
[2020-02-22 16:11] VITALS: TEMP 98
[2020-02-22 16:24] LABS: BASO % 0.5 % (0-2.0); EOS % 4.6 % (0-4.5); HEMOGLOBIN 9.1 GM/dL (10.7-15.3); LYMPH % 13.7 % (8-40); MCH 29.6 pg (25.7-33.7); MCHC 33.7 g/dl (32.0-36.0); MEAN CELL VOLUME 87.7 fl (80-96); MEAN PLT VOLUME 7.4 fl (7.5-11.1); MONO % 11.5 % (3.8-10.2); NEUT % 69.7 % (42.8-82.8); PLATELET COUNT 89 K/MM3 (134-434); RBC 3.08 M/mm3 (3.60-5.2); WHITE BLOOD COUNT 3.3 K/mm3 (4.0-10.0)
[2020-02-22 16:58] LABS: ALBUMIN 1.9 g/dl (3.4-5.0); BILIRUBIN,TOTAL 0.3 mg/dL (0.2-1); BLOOD UREA NITROGEN 35.2 mg/dL (7-18); CALCIUM 7.7 mg/dL (8.5-10.1); CREATININE 4.2 mg/dL (0.55-1.3); MAGNESIUM 1.6 mg/dL (1.8-2.4); POTASSIUM 3.6 mmol/L (3.5-5.1); TOT PROT 5.2 g/dl (6.4-8.2)
[2020-02-22] MEDS ORDERED: PORTA CATH FLUSH 10 ML IVPUSH ONE (17:19)
[2020-02-22 18:21] VITALS: BP 121/85; PULSE 90
== END 2020-02-22 18:26 | disposition home or self-care (01) ==
LOC: JONCCHEMO 07:17
PROVIDERS: ATTEND Internal Medicine Hematology & Oncology
DX: Z51.11 Encounter for antineoplastic chemotherapy (principal); C53.8 Malignant neoplasm of overlapping sites of cervix uteri
CPT/HCPCS: 36415; 80053; 83735; 85025; 86850; 86900; 86901; 96367; 96368; 96375; 96413; J2469

== ENCOUNTER 2020-02-28 15:22 | Inpatient (IN) | payer OTHER ==
--- OUTSIDE RECORDS SUMMARY | 2020-02-28 15:52 | XMS ---
:1980 Author Organization [facility] Care Team Providers Name Role Phone [...] is protected by Article 27-F of the [facility] Public Health law. If you continue you may haveaccess to information: Regarding HIV / AIDS; Provided by facilities licensed or operated by the [facility] Office of Mental Health; or Provided by the [facility] Office for People With Developmental Disabilities. If such information is present, then the following [facility] mandated warning applies: This information has [...] law may result in a fine or care home sentence or both. A general authorization for the release of medical or other information is NOT sufficient authorization for further disclosure. Allergies and Adverse Reactions Type Description Substance Reaction Status Data Source(s ) Drug allergy Augmentin Amoxicillin 500 MG rash Active eCW2 ([facility]o / Clavulanate 125 [facility] MG Oral Tablet Care) [Augmentin] Food allergy No Known Food No Known Food [facility] Allergies Allergies [facility] Drug allergy No Known Drug No Known Drug [facility] Allergies Allergies [facility] Drug allergy Augmentin Amoxicillin / rash Active eCW3 ([facility] Clavulanate [facility]) Encounters Encounter Providers Location Date Indications Data Source(s ) Outpatient 01/09/2020 12:46:00 CERVICAL CA [facility] PM EDT CERVICAL CA Outpatient Attender: [address] 08/03/2019 04:32:19 PM GSI ([facility] EDT Collaborative) Patient admitted. Outpatient Attender: [address] 08/03/2019 04:32:06 PM GSI ([facility] EDT Collaborative) Patient admitted. Outpatient Attender: [address] 08/03/2019 04:31:35 PM GSI ([facility] EDT Collaborative) Patient admitted. Outpatient [facility] 10/26/2018 12:00:00 eCW3 ([facility] A28 AM EDT - 10/26/2018 [facility] 12:00:00 AM EDT Care) Emergency H 07/11/2018 02:46:00 [facility] 05/08/2018 12:00:0 0 eCW2 ([facility] AM [facility] 05/07/2018 12:00:00 eCW2 ([facility] AM EST [facility] 04/17/2018 12:00: 00 eCW2 ([facility] 12:00: 00 eCW2 ([facility] AM EDT [facility] Janeen [place] 02/25/2018 12:00:00 eCW2 ([facility] AM EDT [facility]) Silvia Freemanleopoldo Yu 02/12/2018 12:00: 00 eCW2 ([facility] AM EDT [facility]) Silvia Pachecomonica Yu 01/20/2018 12:00: 00 eCW2 ([facility] AM EDT [facility]) Silvia Pachecomonica Yu 10/26/2017 12:00: 00 eCW2 ([facility] AM EDT [facility]) Silvia Pachecomonica Yu 10/13/2017 12:00: 00 eCW2 ([facility] AM EDT [facility]) Silvia Pachecomonica Yu 10/09/2017 12:00: 00 eCW2 ([facility] AM EDT [facility]) Silvia Pachecomonica Yu 10/06/2017 12:00: 00 eCW2 ([facility] AM EDT [facility]) Silvia Pachecomonica Yu 10/02/2017 12:00: 00 eCW2 ([facility] AM EDT [facility]) Silvia Pachecomonica Yu 08/06/2017 12:00: 00 eCW2 ([facility] AM EDT [facility]) Silvia De Paznjayce Pachecomonica [place] 08/04/2017 12:00: 00 eCW2 ([facility] AM EDT [facility]) Silvia Pachecomonica [place] 08/03/2017 12:00: 00 eCW2 ([facility] AM EDT [facility]) Silvia De Pazn[place] Janeen Yu 06/29/2017 12:00: 00 eCW2 ([facility] AM EST [facility]) Silvia Pachecoomnica Yu 06/25/2017 12:00: 00 eCW2 ([facility] AM EST [facility]) Silvia Pachecomonica Yu 04/07/2017 12:00: 00 eCW2 ([facility] AM EST [facility]) Silvia Pachecomonica Yu 03/26/2017 12:00: 00 eCW2 ([facility] AM EDT [facility]) Floyd Mundo Pachecomonica Yu 12/26/2016 12:00: 00 eCW2 ([facility] AM EDT [facility]) Silvia Pachecomonica Yu 08/20/2016 12:00: 00 eCW2 ([facility] AM EDT [facility]) Silvia De Paznjayce Pachecomonica Yu 06/10/2016 12:00: 00 eCW2 ([facility] AM EST [facility]) Floyd Mundo Pachecomonica Yu 05/21/2016 12:00: 00 eCW2 ([facility] AM EST [facility]) Floyd Mundo Pachecomonica Yu 04/23/2016 12:00: 00 eCW2 ([facility] AM EST [facility]) Floyd Mundo Pachecomonica Yu 04/09/2016 12:00: 00 eCW2 ([facility] AM EST [facility]) Floyd Mundo Workman Janeen Yu 03/11/2016 12:00: 00 eCW2 ([facility] AM EDT [facility]) Floyd Mundo [place] Janeen Yu 02/29/2016 12:00: 00 eCW2 ([facility] AM EDT [facility]) Floyd Mundo [place] Janeen Yu 02/28/2016 12:00: 00 eCW2 ([facility] AM EDT [facility]) Floyd Mundo [place] Janeen Yu 02/06/2016 12:00: 00 eCW2 ([facility] AM EDT [facility]) Silvia Freemanleopoldo Yu 12/26/2015 12:00: 00 eCW2 ([facility] AM EDT [facility]) Silvia Pachecomonica Yu 12/26/2015 12:00: 00 eCW2 ([facility] AM EDT [facility]) Silvia Pachecomonica Yu 12/20/2015 12:00: 00 eCW2 ([facility] AM EDT [facility]) Silvia Pachecomonica Yu 12/20/2015 12:00: 00 eCW2 ([facility] AM EDT [facility]) Silvia Pachecomonica Yu 06/08/2015 12:00: 00 eCW2 ([facility] AM EST [facility]) Floyd Mundo Pachecomonica Yu 05/10/2015 12:00: 00 eCW2 ([facility] AM EST [facility]) Floyd Mundo Pachecomonica Yu 03/22/2015 12:00: 00 eCW2 ([facility] AM EDT [facility]) Floyd Mundo Pachecomonica Yu 03/14/2015 12:00: 00 eCW2 ([facility] AM EDT [facility]) Floyd Mundo Pachecomonica Yu 01/12/2015 12:00: 00 eCW2 ([facility] AM EDT [facility]) Floyd Mundo Pachecomonica [place] 12/21/2014 12:00: 00 eCW2 ([facility] AM EDT [facility]) Floyd Mundo [place] Janeen [place] 10/03/2014 12:00: 00 eCW2 ([facility] AM EDT [facility]) Floyd Mundo [place] Janeen Yu 07/24/2014 12:00: 00 eCW2 ([facility] AM EST [facility]) [facility] 07/21/2014 12:00:00 eCW2 ([facility] AM EST [facility] 06/27/2014 12:00: 00 eCW2 ([facility] AM EST [facility]) [facility] 05/15/2014 12:00: 00 eCW2 ([facility] AM EST [facility]) [facility] 05/13/2014 12:00: 00 eCW2 ([facility] AM EST [facility]) [facility] 05/08/2014 12:00: 00 eCW2 ([facility] 04/[facility]2014 12:00: 00 eCW2 ([facility] 04/14/2014 12:00: 00 eCW2 ([facility] AM EST [facility] 04/13/2014 12:0 0:00 eCW2 ([facility] AM EST [facility]) [facility] 04/05/2014 12:0 0:00 eCW2 ([facility] AM EST [facility] 03/17/2014 12:00: 00 eCW2 ([facility] AM EDT [facility]) [facility] 03/14/2014 12:00: 00 eCW2 ([facility] AM [facility]T [facility] 01/20/2014 12:00: 00 eCW2 ([facility] AM EDT [facility] 01/18/2014 12:0 0:00 eCW2 ([facility] AM EDT [facility]) Silvia Freemanleopoldo Yu 01/05/2014 12:00: 00 eCW2 ([facility] AM EDT [facility]) Silvia Pachecomonica Yu 10/25/2013 12:00: 00 eCW2 ([facility] AM EDT [facility]) Silvia Pachecomnoica Yu 09/27/2013 12:00: 00 eCW2 ([facility] AM EDT [facility]) Silvia Pachecomonica Yu 08/05/2013 12:00: 00 eCW2 ([facility] AM EDT [facility]) Silvia Pachecomonica Yu 07/21/2013 12:00: 00 eCW2 ([facility] AM EST [facility]) Floyd Mundo Pachecomonica Yu 07/01/2013 12:00: 00 eCW2 ([facility] AM EST [facility]) Floyd Mundo Pachecomonica Yu 06/30/2013 12:00: 00 eCW2 ([facility] AM EST [facility]) Silvia Pachecomonica Yu 06/09/2013 12:00: 00 eCW2 ([facility] AM EST [facility]) Silvia Pachecomonica Yu 05/16/2013 12:00: 00 eCW2 ([facility] AM EST [facility]) Silvia Pachecomonica Yu 02/22/2013 12:00: 00 eCW2 ([facility] AM EDT [facility]) Silvia Workman Janeen Yu 01/03/2013 12:00: 00 eCW2 ([facility] AM EDT [facility]) Silvia De Pazn[place] Janeen Yu 12/01/2012 12:00: 00 eCW2 ([facility] AM EDT [facility]) [place] 11/03/2012 12:00: 00 eCW2 ([facility] AM EDT [facility]) Floyd Mundo [place] 09/30/2012 12:00: 00 eCW2 ([facility] AM EDT [facility]) Floyd Mundo [place] 09/21/2012 12:00: 00 eCW2 ([facility] AM EDT [facility]) Floyd Mundo [place] 09/17/2012 12:00: 00 eCW2 ([facility] AM EDT [facility]) Floyd Mudno [place] 09/10/2012 12:00: 00 eCW2 ([facility] AM EDT [facility]) Floyd Mundo [place] 06/30/2012 12:00: 00 eCW2 ([facility] AM EST [facility]) [facility] Jacinta Freemann [place] 03/04/2012 12:00: 00 eCW2 ([facility] AM EDT [facility]) [facility] Gigi 02/19/2012 12:00:00 eCW2 ([facility] AM EDT [facility]) [facility] 01/16/2012 12:00:00 eCW2 ([facility] AM EDT [facility]) [facility] [place] 01/15/2012 12:00:00 eCW2 ([facility] AM EDT [facility]) [facility] 12/11/2011 12:00:00 eCW2 ([facility] AM EDT [facility]) [facility] Jacinta Freemann [place] 07/15/2011 12:00: 00 eCW2 ([facility] AM EST [facility]) [facility] Jacinta Pachecolyn [place] 07/12/2011 12:00: 00 eCW2 ([facility] AM EST [facility]) [facility] 12/03/2010 12:00:00 eCW2 ([facility] AM EDT [facility]) [facility] 11/19/2010 12:00:00 eCW2 ([facility] AM EDT [facility]) [facility] 11/18/2010 12:00:00 eCW2 ([facility] AM EDT [facility]) [facility] 08/26/2010 12:00:00 eCW2 ([facility] AM EDT [facility]) [facility] 08/23/2010 12:00:00 eCW2 ([facility] AM EDT [facility]) [facility] 07/26/2010 12:00:00 eCW2 ([facility] AM EST [facility]) [facility] 07/25/2010 12:00:00 eCW2 ([facility] AM EST [facility]) [facility] 07/23/2010 12:00:00 eCW2 ([facility] AM EST [facility]) [facility] 05/08/2010 12:00:00 eCW2 ([facility] AM EST [facility]) [facility] 05/07/2010 12:00:00 eCW2 ([facility] AM EST [facility]) [facility] 05/07/2010 12:00:00 eCW2 ([facility] AM EST [facility]) [facility] 04/10/2010 12:00:00 eCW2 ([facility] AM EST [facility]) [facility] 04/03/2010 12:00:00 eCW2 ([facility] AM EST [facility]) [facility] 03/18/2010 12:00:00 eCW2 ([facility] AM EDT [facility]) [facility] 03/07/2010 12:00:00 eCW2 ([facility] AM EDT [facility]) [facility] 03/06/2010 12:00:00 eCW2 ([facility] AM EDT [facility]) [facility] 03/05/2010 12:00:00 eCW2 ([facility] AM EDT [facility]) [facility] 02/28/2010 12:00:00 eCW2 ([facility] AM EDT [facility]) [facility] 02/27/2010 12:00:00 eCW2 ([facility] AM EDT [facility]) [facility] 01/07/2010 12:00:00 eCW2 ([facility] AM EDT [facility]) [facility] 12/13/2009 12:00:00 eCW2 ([facility] AM EDT [facility]) [facility] 09/10/2009 12:00:00 eCW2 ([facility] AM EDT [facility]) [facility] 09/06/2009 12:00:00 eCW2 ([facility] AM EDT [facility]) [facility] 09/05/2009 12:00:00 eCW2 ([facility] AM EDT [facility]) [facility] 06/15/2009 12:00:00 eCW2 ([facility] AM EST [facility]) [facility] 01/26/2009 12:00:00 eCW2 ([facility] AM EDT [facility] Care) [facility] 11/22/2008 12:00:00 eCW2 ([facility] AM EDT [facility]) Immunizations Vaccine Date Status Description Data Source(s) New in 2011. IIV4 07/11/2017 completed [facility] Medical 01:18:00 PM EST Center Note that this vaccine 05/04/2016 completed [facility] Medical name has changed. See 03:04:00 PM EST Ce nter also Td (adult). It is not adsorbed. No Known Immunizations completed eCW2 ([facility]) Medications Medication Brand Start Product Dose Route Administrative Pharmacy [facility] Indications Reaction Description Data Name Date Form Instructions Instructions Source(s) Paroxetine Paxil .0 Oral active NETS MART 10 MG Oral 2020 Table [facility] 04:00: t er Mandaen [Paxil] 00 AM Community EDT Services) Paroxetine Paxil .0 Oral active NETS MART 10 MG Oral 2020 [place] [facility] 04:00: t er Mandaen [Paxil] 00 AM Community EDT Services) Naphazoline [...] Table ([facility] 05:00: t er Mandaen [Paxil] 00 AM Community EST Services) Paroxetine Paxil .0 Oral active NETS MART 10 MG Oral 2020 Table ([address] [facility]t 05:00: t er Mandaen [Paxil] 00 AM Community EST Services) Acetaminoph [...] Propio 12:00: [facility] dustin 00 AM Health 50 EST Care) MCG/AC T Nebulizer UNK 01/14/ [...] [facility] [Paxil] _the_ Health Paxil 10 MG morni Care) ng} 200 ACTUAT Ventol active 2 puffs eC W2 Albuterol in HFA (Polo 0.09 108 [facility] MG/ACTUAT (90 Health Metered Base) Care) Dose MCG/AC Inhaler T [Ventolin] Ventolin HFA 108 (90 Base) MCG/ACT Sertraline Zoloft active 2 tablet e CW2 100 MG Oral 100 mg ([place] Tablet [place] [Zoloft] [facility] Zoloft 100 Care) mg Iron 325 Iron [...] e CW2 0.5 MG Oral in 0.5 ([facility] [Klonopin] [facility] Klonopin Care) 0.5 mg 3 ML HumaLO active sliding eCW2 Insulin G scale up to ([place] on Lispro 100 KwikPe 10 units Jomar er UNT/ML Pen n 100 Health Injector UNIT/M Care) [Humalog] L HumaLOG KwikPen 100 UNIT/ML aripiprazol Abilif active 1 tablet eCW2 e 10 MG y 10 (Polo Oral Tablet MG [facility] [Abilify] [facility] Abilify 10 Care) MG Losartan Losart 1.0 active Losartan eCW 3 Potassium an {tabl Potassium 50 ( Polo 50 MG Oral Potass et} MG [facility] Tablet ium 50 [facility] Care) Depo UNK active as directed eCW2 Provera ([facility] Contracepti [facility] Injection Care) 150 MG/ML Depo UNK active as directed eCW2 Provera ([facility] Contracepti [facility] In[facility]) 150 MG/ML Insurance Providers Payer name Policy type Policy ID Covered Covered libertarian's Policy P chas / Coverage libertarian ID relationship to Charles Inf ormation type charles [facility] [place] [id number] [place] [id number] [facility] MEDICAID [id number] SP [id number] [facility] [place]ICA[place] [id number] [place] [id number] [facility] MAORI [id number] PT [id number] 500 [facility] [id number] 01 [id number] 01 [id number] [facility] [id number] 01 [id number] HEALTH ACUTE Problems, Conditions, and Diagnoses Code Display Name Description Problem Type Effective Data Dates Source(s) N92.1 Menorrhagia with Menorrhagia with Problem 08/25/2019 eC W3 ([facility] irregular cycle irregular cycle 12:00:00 AM [facility] EDT Care) J45.40 Moderate persistent Moderate persistent Problem 020 eCW3 ([facility] asthma without asthma without 12:00:00 AM [facility] complication complication EST Care) G62.9 Polyneuropathy Polyneuropathy Problem 10/26/2018 eCW3 ( [facility] 12:00:00 AM [facility] EDT Care) I10 Essential Essential Problem 10/26/2018 eCW3 ([facility] hypertension hypertension 12:00:00 AM [facility] EDT Care) E66.01 Morbid obesity Morbid obesity Problem 10/26/2018 eCW3 ( Pool 12:00:00 AM [facility] EDT Care) D64.9 Anemia Anemia, unspecified Problem 09/30/2018 eCW3 ([facility]o 12:00:00 AM [facility] EDT Care) E11.9 Type II diabetes Type 2 diabetes Problem 09/30/2018 eCW 3 ([facility] mellitus without mellitus without 12:00:00 AM [facility] complication complications EDT Care) J45.909 Asthma without Unspecified asthma, Problem 09/30/2018 e CW3 ([facility] status asthmaticus uncomplicated 12:00:00 AM [facility] EDT Care) 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 019 NETSMART disorder disorder 04:00:00 AM ([facility]) [id number] Posttraumatic stress Posttraumatic Complaint 08/23/2018 N ETSMART disorder stress disorder 04:00:00 AM ([facility]) [id number] Panic disorder Panic disorder Complaint 08/23/2018 NETSMA RT without agoraphobia without agoraphobia 04:00:0 0 AM ([facility]) N92.1 Menometrorrhagia Menometrorrhagia Problem 10/13/2017 eC W2 ([facility]o 12:00:00 AM [facility] EDT Care) N93.9 Vaginal bleeding Vaginal bleeding Problem 10/06/2017 eC W2 ([facility]o 12:00:00 AM [facility] EDT Care) E66.8 Obesity Other obesity Problem 10/06/2017 eCW2 ([place] 12:00:00 AM [facility] EDT Care) 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 Problem 08/03/2017 eCW3 ([facility] use of insulin use of insulin 12:00:00 AM [facility] EDT Care) J45.41 Moderate persistent Moderate persistent Problem 018 eCW3 ([facility] asthma with acute asthma with acute 12:00:00 AM [facility] exacerbation exacerbation EDT Care) E11.65 Type 2 diabetes Type 2 diabetes Problem 08/03/2017 eCW3 ([facility] mellitus with mellitus with 12:00:00 AM [facility] hyperglycemia hyperglycemia EDT Care) J45.41 Moderate persistent Moderate persistent Problem 018 eCW2 ([facility] asthma with acute asthma with acute 12:00:00 AM [facility] exacerbation exacerbation EDT Care) E11.65 Type 2 diabetes Type 2 diabetes Problem 08/03/2017 eCW2 ([facility] mellitus with mellitus with 12:00:00 AM [facility] hyperglycemia hyperglycemia EDT Care) 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 Problem 08/03/2017 eCW2 ([facility] use of insulin use of insulin 12:00:00 AM [facility] EDT Care) Q61.00 Renal cyst Renal cyst Problem 08/20/2016 eCW3 ([facility]o 12:00:00 AM [facility] EDT Care) Q61.00 Renal cyst Renal cyst Problem 08/20/2016 eCW2 ([facility]o 12:00:00 AM [facility] EDT Care) E11.9 Diabetes mellitus Type 2 diabetes Problem 08/20/2016 eC W2 ([facility]o type 2 mellitus with goal 12:00:00 AM [facility] of symptom EDT Care) management G62.9 Peripheral Peripheral Problem 05/21/2016 eCW2 ([facility] neuropathy neuropathy 12:00:00 AM [facility] EST Care) K30 Dyspepsia Dyspepsia Problem 05/21/2016 eCW2 ([facility]o 12:00:00 AM [facility] EST Care) E11.9 Diabetes mellitus Diabetes Problem 05/10/2015 eCW2 ([facility] without complication 12:00:00 AM [facility] EST Care) J45.901 Asthma exacerbation Asthma exacerbation Problem 10/29/2 015 eCW2 (Polo 12:00:00 AM [facility] EDT Care) 590.80 Pyelonephritis Pyelonephritis Problem 06/27/2014 eCW2 ( Victor 12:00:00 AM [facility] Care) 493.92 Exacerbation of Asthma exacerbation Problem 10/25/2013 eCW2 ([facility] asthma 12:00:00 AM [facility] EDT Care) 477.9 Allergic rhinitis ALLERGIC RHINITIS Problem eCW2 ([facility]) 285.9 Anemia Anemia Problem eCW2 ([facility]) 493.90 Asthma without Asthma Intermittent Problem e CW2 ([facility] status asthmaticus [facility]) 401.9 Essential Essential Problem eCW2 ([facility] hypertension Hypertension, [facility] Unspec Care) 791.0 Proteinuria Proteinuria Problem eCW2 ([facility]) 250.00 Diabetes mellitus Diabetes mellitus Problem eCW2 ([facility] type 2 type 2 [facility]) 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 Q61.02 Diagnosis 01/09/2020 [place] renal cysts 12:46:00 PM Hospital EDT N20.0 Calculus of kidney N20.0 Diagnosis 01/09/2020 [facility] 12:46:00 PM Hospital EDT J90 Pleural effusion, J90 Diagnosis 01/09/2020 [place] not elsewhere 12:46:00 PM Hospital classified EDT I31.3 Pericardial effusion I31.3 Diagnosis 01/09/2020 [place] (noninflammatory) 12:46:00 PM Hospit al EDT I51.7 Cardiomegaly I51.7 Diagnosis 01/09/2020 [facility] 12:46:00 PM Hospital EDT R91.8 Other nonspecific R91.8 Diagnosis 01/09/2020 [place] abnormal finding of 12:46:00 PM Hosp ital lung field EDT C53.9 Malignant neoplasm C53.9 Diagnosis 01/09/2020 [place] of cervix uteri, 12:46:00 PM Hospita l unspecified EDT Surgeries/Procedures Procedure Description Date Indications Data Source(s) CUL PRSMPTV PTHGNC 02/25/2018 eCW2 ([facility] ORGANISM SCRN W/COLONY 12:00:00 AM EDT He alth Care) ESTIMJ Results ID Date Data Source [id number] 02/20/2020 10:50:00 AM EDT [facility] Name Value Range Interpretation Code Description Data Radha rce(s) Supporting Document(s ) SARS COV-2 [facility] RT-PCR This lab was ordered by [facility]. and reported by [facility]. ID Date Data Source [id number] 02/04/2020 05:10:00 PM EDT [facility] Name Value Range Interpretation Description Data Sup porting Code Source(s) Document(s ) SARS [facility] coronavirus 2 RNA This lab was ordered by [facility] and reported by [facility]. ID Date Data Source [id number] 01/13/2020 10:30:00 AM EDT [facility] Name Value Range Interpretation Description Data Sup porting Code Source(s) Document(s ) SARS [facility] coronavirus 2 RNA This lab was ordered by [facility] and reported by [facility]. ID Date Data Source [id number] 12/26/2019 05:45:00 PM EDT [facility] Name Value Range Interpretation Description Data Sup porting Code Source(s) Document(s ) SARS [facility] coronavirus 2 RNA This lab was ordered by [facility] and reported by [facility]. ID Date Data Source [id number] 12/20/2019 06:45:00 PM EDT [facility] Name Value Range Interpretation Description Data Sup porting Code Source(s) Document(s ) SARS [facility] coronavirus 2 RNA This lab was ordered by [facility] and reported by [facility]. ID Date Data Source [id number] 11/17/2019 11:25:00 PM EDT [facility] Name Value Range Interpretation Description Data Sup porting Code Source(s) Document(s ) SARS [facility] CORONAVIRUS 2 RNA This lab was ordered by [facility] and reported by [facility]. ID Date Data Source [id number] 10/08/2019 03:15:00 PM EDT [facility] Name Value Range Interpretation Description Data Sup porting Code Source(s) Document(s ) SARS [facility] CORONAVIRUS 2 RNA This lab was ordered by [facility] and reported by [facility]. ID Date Data Source Liver Profile 07/11/2018 04:15:00 PM [facility] Name Value Range Interpretation Description [...] Data Source HematologyRou 07/11/2018 04:15:00 PM EST [facility] Name Value Range Interpretation Description [...] Date Data Source GFR(Creatinine) 07/11/2018 04:15:00 PM [facility] Name Value Range Interpretation Code Description Data Radha rce(s) Supporting Document(s ) UNK > 60 Below low normal <content [facility] styleCode="Bold"> Medical Cent er EGFR </content>39 GFR L<content styleCode="Italic s"> (> 60 GFR)</content> ID Date Data Source [id number] 07/11/2018 04:15:00 PM [facility] Name Value Range Interpretation Description Data Sup porting Code Source(s) Document(s ) Lipase 23-300 <content [facility] [Enzymatic styleCode="Bold Medical activity/vo ">Lipase Center lume] in </content>49 Serum or IU/L<content Plasma styleCode="Ital ics"> (23-300 IU/L)</content> ID Date Data Source BMP 07/11/2018 04:15:00 PM EST [facility] Name Value Range Interpretation Description [...] 7-17 Above high <content [facility] normal styleCode="Bold"> [facility] BUN </content>28 Medical MG/DL H<content Center styleCode="Italic [...] IU/L)</content> Alkaline 38-126 <content [facility] phosphatase styleCode="Bold"> Bhavani [...] Data Source Urinalysis 07/11/2018 03:50:00 PM EST [facility] Name Value Range Interpretation Description Data Sup porting Code Source(s) Document(s ) Color of Urine YELLOW <content [facility] styleCode="Antonietta Carlsons d">Color, Medical Urine Center </content>YELL OW <content styleCode="Chreyl lics"> (YELLOW )</content> UNK NEGATIVE <content [facility] [...] t> Protein NEGATIVE <content [facility] [Mass/volume] styleCode="Antonietta Carlsons in Urine by d">Urine Medical Test strip Protein Center </content>300 mg/dl MG/DL<content styleCode="Cheryl lics"> (NEGATIVE MG/DL)</conten t> Specific 1.015-1.02 <content [facility] gravity of 5 styleCode="Antonietta Carlsons Urine by Test d">Urine Medical strip Specific Center [place] </content>1.02 5 NM<content styleCode="Cheryl lics"> (1.015-1.025 NM)</content> [...] GROUP A 02/25/2018 12:00:00 AM EDT eCW2 ([facility]) Name Value Range Interpretation Description Data Sup porting Code Source(s) Document(s ) Streptococcus NEGATIVE NEGATIVE STREP, GRP.A, eCW2 pyogenes DNA ([facility]Presence[facility] in [place] [facility] Care) specific culture ID Date Data Source Rapid Strep A, In House.0 02/25/2018 12:00:00 AM EDT eCW2 ([facility]) Name Value Range Interpretation Description Data Sup porting Code Source(s) Document(s ) negative negative - Rapid Strep A eCW2 ([facility]) Procedure Social History Code Duration Value Status Description Data Source(s ) Smoking 09/08/2019 Former Smoker completed Former Smoker eCW3 ( [facility]son 12:00:00 AM EDT [facility]) Smoking 07/11/2018 Former Smoker completed Former Smoker [facility] 03:39:00 PM EST Medical C enter Smoking 07/11/2018 Former Smoker completed Former Smoker [facility] 03:22:00 PM EST Medical C enter Smoking 07/11/2018 Former Smoker completed Former Smoker [facility] 02:52:00 PM EST Medical C enter Former Smoker completed Former Smoker eCW3 ([facility]) Smoking Unknown if ever completed Unknown if ever eCW2 ([facility]) Vital Signs ID Date Data Source UNK Name Value Range Interpretation Code Description Data Source(s) Diastolic blood 78 mm[Hg] 78 mm[Hg] eCW3 ([facility]) Systolic blood 123 mm[Hg] 123 mm[Hg] eCW3 ([facility]) Body temperature 97.6 [degF] 97.6 [degF] eCW3 ( [facility]) Heart rate 18 /min 18 /min eCW3 ([facility]) Body mass index 42.53 kg/m2 42.53 kg/m2 eCW3 ([employer] (BMI) [Ratio] [facility]) Body weight 242.0 242.0 [lb_av] eCW3 ([facility] [lb_av] [facility]) Body height 63.25 [in_i] 63.25 [in_i] eCW3 ([facility]) Body temperature 37.256718 37.694013 [facility] Respiratory rate 18 /min 18 /min [facility] Oxygen saturation 98 % 98 % [facility] Arterial blood [facility] Center by Pulse oximetry Heart rate 82 /min 82 /min [facility] Diastolic blood 76 mm[Hg] 76 mm[Hg] [facility] pressure [facility] Systolic blood 139 mm[Hg] 139 mm[Hg] [facility] Center Body temperature 36.048385 36.889514 [facility] Respiratory rate 18 /min 18 /min [facility] Oxygen saturation 98 % 98 % [facility] Arterial blood [facility] Center by Pulse oximetry Heart rate 80 /min 80 /min [facility] Diastolic blood 78 mm[Hg] 78 mm[Hg] [facility] Systolic blood 140 mm[Hg] 140 mm[Hg] [facility] Body weight 92.275443 kg 92.843866 kg [facility] Body temperature 36.064201 36.087200 [facility] Respiratory rate 17 /min 17 /min [facility] Oxygen saturation 100 % 100 % [facility] Arterial blood [facility] by Pulse oximetry Heart rate 101 /min 101 /min [facility] Body height 162.275273 162.392750 cm [facility] Diastolic blood 75 mm[Hg] 75 mm[Hg] [facility] Systolic blood 137 mm[Hg] 137 mm[Hg] [facility] Body mass index 35.1 kg/m2 35.1 kg/m2 [facility] (BMI) [Ratio] [facility] [address] Diastolic blood 82 mm[Hg] 82 mm[Hg] eCW2 ([facility]) Systolic blood 129 mm[Hg] 129 mm[Hg] eCW2 ([facility]) Body temperature 100.4 [degF] 100.4 [degF] eCW2 ([facility]) Body mass index 37.42 kg/m2 37.42 kg/m2 eCW2 ([facility] (BMI) [Ratio] [facility]) Body weight 218 [lb_av] 218 [lb_av] eCW2 ([facility]) Body height 64 [in_us] 64 [in_us] eCW2 ([facility]) Patient Treatment Plan of Care Planned Activity Planned Date Details Description Data Source (s) Naphazoline Hydrochloride 09/08/2019 12:00:00 eCW3 ([facility] 0.25 MG/ML / Pheniramine AM EDT [facility]) Maleate 3 MG/ML Ophthalmic Solution [Naphcon A]
--- NOTE | 2020-02-28 15:56 | PDOC ---
History of Present Illness - General Chief Complaint: Lightheaded Stated Complaint: DIZZINESS AND DIARRHEA Time Seen by Provider: 02/28/20 15:55 History Source: Patient Exam Limitations: No Limitations - History of Present Illness Initial Comments: 02/28/20 18:04 HPI: This is a 40 y/o female with a PMH significant for ESRD on dialysis (/), Cervical CA on rad/chem, IDDM, anemia, BIBA from the dialysis center because her "BP was high," and she felt dizzy and developed a KABA. She reports that she had two episodes of non-bloody diarrhea at the dialysis center as well as worsening abdominal pain with nausea. The abdominal pain and diarrhea appear to be chronic and likely due to the chemo/radiation. Dr. Dolan is aware. Denies chest pain, SOB. Per [facility], patient completed her dialysis today and on completion she was found to have BP 170's/100's. She then had two episodes of NB watery diarrhea. Her BP was then rechecked and found to be 90/54. The center wanted to give her saline but she was concerned because of her hx of cancer. EMS was then called because the patient wanted to be evaluated in the ED, and her BP was found to be 121/74. ROS: GENERAL/CONSTITUTIONAL: No fever/chills, diaphoresis, Admits to generalized weakness HEENT: No change in vision. No sore throat. CARDIOVASCULAR: No chest pain, palpitations RESPIRATORY: No shortness of breath, dyspnea with exertion, cough GASTROINTESTINAL: Yes abdominal pain, nausea and 2 episodes of NB diarrhea earlier GENITOURINARY: No dysuria, frequency MUSCULOSKELETAL: No joint or muscle swelling or pain. SKIN: No rash or hives NEUROLOGIC: Yes headache, No focal weakness, loss of consciousness, or change in strength/sensation. HEMATOLOGIC/LYMPHATIC: Yes anemia, easy bleeding, or history of blood clots. PMH: ESRD on dialysis (/), Cervical CA on rad/chem, IDDM, anemia PSx: Denied Social Hx: Denied etoh, tobacco, drug use Meds: See nurse note Allergies: See nurse note PE: GENERAL: Awake, alert, and fully oriented, in no acute distress. HEENT: Normocephalic, atraumatic. PERRLA, EOMI. NECK: Normal ROM and supple. CARDIOVASCULAR: Regular rate and rhythm, normal S1 and S2, no murmurs, rubs or gallops PULMONARY: No respiratory distress. Breath sounds equal, clear to auscultation bilaterally. ABDOMEN: Soft, tender to palpation at the locations of her radiation site. No guarding, no rebound. No masses EXTREMITIES: Normal range of motion, no edema or erythema, no calf tenderness. No clubbing or cyanosis. NEUROLOGICAL: Cranial nerves II through XII grossly intact. Normal speech, normal gait SKIN: Warm, Dry, normal turgor, no rashes or lesions noted. Normal capillary refill. MDM: This is a 40 y/o female with a PMH significant for ESRD on dialysis (T//), Cervical CA on rad/chem, IDDM, anemia, BIBA from the dialysis center because her "BP was high," and she felt dizzy and developed a KABA. - Patient has been having worsening abdominal pain and diarrhea for over a week. - Last chemo was a week ago with Dr. Dolan. Due for another round tomorrow. - Concern for infection given patient is chemo/radiation - EKG, CBC, CMP, Cardial profile - Zofran for nausea, tylenol for headache Labs in ED: - WBC 3.5 - Hg 11.1 - K 3.6 - BUN 20.7 - Creat 2.5 - Trop neg 02/28/20 18:10 Per [facility], patient completed her dialysis today and on completion she was found to have BP 170's/100's. She then had two episodes of NB watery diarrhea. Her BP was then rechecked and found to be 90/54. The center wanted to give her saline but she was concerned because of her hx of cancer. EMS was then called because the patient wanted to be evaluated in the ED, and her BP was found to be 121/74. 02/28/20 18:15 - Spoke with Dr. Dolan (heme/onc) who wants magnesium level, blood cultures, CXR, CT abdomen/pelvis. Will re-evaluate following those results whether admission vs d/c. Patient has an appointment with Dr Dolan. 02/28/20 19:28 - Famotidine for acid reflux. - Mag 1.4 repleted with 1g - Patient still having abdominal pain, will give 2mg morphine 10/06/20 20:34 - Patient reports reduction in abdominal pain, KABA, nausea. Less ttp on exam. - Pending CT 02/28/20 21:07 CXR: Single view the chest is submitted. Since the prior study of 02/20/2020 there is a better inspiration with clear lungs, sharp angles, normal mediastinum and bilateral jugular lines which are unchanged in position. A pneumothorax is not seen. An acute process is not visualized. Impression: Improvement since prior study. See above CT abd/pelvis w/o contrast: Impression: 13 stool in the sigmoid colon compatible clinical history of diarrhea. Hepat omegaly. Splenomegaly with interval focal low-attenuation density, anteriorly measuring approximately 3.8 cm suggestive of a splenic infarct versus a splenic lesion which further evaluation with MRI is needed. There are extensive vascular calcifications in the left upper abdomen, in particular in the splenic hilum. Polycystic kidney disease again noted, bilaterally with a right double-J ureteral stent in place and mild right renal hydronephrosis dated. Previously described thickening of the posterior urinary bladder wall could not be evaluated on this exam. Multiple surgical metallic clips in the lower pelvis with stranding of the surrounding fat suggestive of edema. Presacral edema is also present. However, there is suggestion of a uterine fundus, best visualized on the sagittal images. Rule out partial hysterectomy. - Spoke with Dr. Dolan who expressed concern about transferring patient due to ongoing chemo/radiation. - Dr. Ram on board to follow patient - Plan to admit 02/28/20 22:07 - Patient signed out to night team Past History - Medical History Allergies/Adverse Reactions: Allergies Allergy/AdvReac Type Severity Reaction Status Date / Time No Known Allergies Allergy Verified 02/28/20 15:46 Home Medications: Ambulatory Orders Albuterol 0.083% Nebulizer Sarina [Ventolin 0.083% Nebulizer Soln -] 1 neb NEB Q6H PRN 10/06/17 Budesonide/Formeterol Fumarate [SYMBICORT 80/4.5mcg -] 2 puff IH BID 10/06/17 Insulin Glargine,Hum.rec.anlog [Lantus] 50 unit SQ BID 10/06/17 Insulin Lispro [Humalog] 30 unit SQ TID 04/18/18 Esomeprazole Magnesium [Nexium 24Hr] 40 mg PO DAILY 05/28/18 Gabapentin [Neurontin] 100 mg PO BID 10/09/19 Sevelamer Carbonate [Renvela -] 800 mg PO TIDCM #90 tab 10/12/19 Acetaminophen [Tylenol .Extra-Strength -] 2 tab PO PRN 01/16/20 Oxycodone HCl [Roxicodone] 5 mg PO ASDIR 02/03/20 Ferrous Sulfate [Feosol] 325 mg PO DAILY 02/06/20 Folic Acid - 1 mg PO DAILY #30 tablet 02/06/20 Losartan Potassium 50 mg PO DAILY 02/06/20 Montelukast Sodium [Singulair] 10 mg PO DAILY 02/06/20 Omeprazole 40 mg PO DAILY 02/28/20 Ondansetron [Zuplenz] 8 mg PO BID 02/28/20 Prochlorperazine Maleate [Compazine] 10 mg PO Q8H 02/28/20 Sodium Bicarbonate - 650 mg PO TID 02/28/20 Dorzolamide HCl/Timolol Maleat [Cosopt Eye Drops] 1 drop OP BID 02/29/20 Dulaglutide [Trulicity] 1 unit SQ WEEKLY 02/29/20 Gabapentin 1 tab PO TID 02/29/20 Paroxetine HCl 1 tab PO DAILY 02/29/20 Anemia: Yes Asthma: Yes Cancer: Yes (cervical) Cardiac Disorders: No CVA: No COPD: No CHF: No Dementia: No Diabetes: Yes (IDDM) GI Disorders: Yes (acid reflux) Disorders: Yes (Autosomal dominant polycystic kidney disease) HTN: No Hypercholesterolemia: No Liver Disease: No Psychiatric Problems: Yes (DEPRESSION/ANXIETY/BIPOLAR) Seizures: No Thyroid Disease: No - Surgical History Abdominal Surgery: Yes Appendectomy: No Cardiac Surgery: No Cholecystectomy: No Lung Surgery: No Neurologic Surgery: No Orthopedic Surgery: No - Reproductive History Cervical CA: Yes Dysfunctional Uterine Bleeding: Yes - Immunization History Immunization Up to Date: Yes - Psycho-Social/Smoking History Smoking History: Never smoked Have you smoked in the past 12 months: No Number of Cigarettes Smoked Daily: 3 If you are a former smoker, when did you quit?: 2004 Cigars Per Day: 0 'Breaking Loose' booklet given: 01/16/20 Heart Score/ECG Review - ECG Intrepretation Comment:: 02/28/20 20:[address] elevations, T wave inversions or peaked T waves Normal sinus rhythm Vent rate 87 WI interval 166ms QRS duration 80ms QT/QTc 368/442ms ED Treatment Course - LABORATORY CBC & Chemistry Diagram: 03/01/20 06:30 03/01/20 06:30 Discharge - Discharge Information Problems reviewed: Yes Clinical Impression/Diagnosis: Diarrhea Qualifiers: Diarrhea type: unspecified type Qualified Code(s): R19.7 - Diarrhea, unspecified - Follow up/Referral - Patient Discharge Instructions - Post Discharge Activity
[2020-02-28] MEDS ORDERED: ACETAMINOPHEN 1000 MG/100 ML VIAL (NON FORMULARY) IVPB ONE ×2 (16:21→17:41)
[2020-02-28] MEDS ORDERED: ONDANSETRON 4 MG TABLET PO ONE (16:37)
[2020-02-28] MEDS ORDERED: ACETAMINOPHEN 325 MG TABLET (FP) PO ONE (17:26)
[2020-02-28 17:27] LABS: BASO % 0.7 % (0-2.0); EOS % 1.6 % (0-4.5); HEMATOCRIT 32.1 % (32.4-45.2); HEMOGLOBIN 11.1 GM/dL (10.7-15.3); LYMPH % 12.2 % (8-40); MCHC 34.7 g/dl (32.0-36.0); MEAN CELL VOLUME 86.5 fl (80-96); MEAN PLT VOLUME 7.3 fl (7.5-11.1); MONO % 7.8 % (3.8-10.2); NEUT % 77.7 % (42.8-82.8); PLATELET COUNT 78 K/MM3 (134-434); RBC 3.71 M/mm3 (3.60-5.2); RDW 16.1 % (11.6-15.6); WHITE BLOOD COUNT 3.5 K/mm3 (4.0-10.0)
[2020-02-28] MEDS ORDERED: ACETAMINOPHEN INJECTION 100 ML IVPB ONE (17:40)
[2020-02-28] MEDS ORDERED: ONDANSETRON 4 MG/2 ML VIAL IVPUSH ONE (17:41)
--- NOTE | 2020-02-28 17:50 | PDOC ---
Documentation entered by Ji Spain SCRIBE, acting as scribe for Karine Bermeo MD. Karine Bermeo MD: This documentation has been prepared by the scribe, Ji Spain SCRIBE, under my direction and personally reviewed by me in its entirety. I confirm that the documentation accurately reflects all work, treatment, procedures, and medical decision making performed by me. Attending Attestation - Resident Resident Name: Rhiannon Moraes - ED Attending Attestation I have performed the following: I have examined & evaluated the patient, The case was reviewed & discussed with the resident, I agree w/resident's findings & plan, Exceptions are as noted - HPI HPI: 40 yo F history cervical CA, DM, ESRD on HD, sent from dialysis center today after she had hypertension during her dialysis treatment. Pt is unclear on what her blood pressures were, however, she was having diarrhea and lightheadedness. She was transferred to ED for further evaluation. Denies fever, chills. She has abdominal pain that is chronic and unchanged. Denies vomiting. Normal PO intake. - Physicial Exam PE: GENERAL: Awake, alert, and fully oriented, in no acute distress HEAD: No signs of trauma EYES: PERRLA, EOMI, sclera anicteric, conjunctiva clear ENT: Auricles normal inspection, hearing grossly normal, nares patent, oropharynx clear without exudates. Moist mucosa NECK: Normal ROM, supple, no lymphadenopathy, JVD, or masses LUNGS: Breath sounds equal, clear to auscultation bilaterally. No wheezes, and no crackles HEART: Regular rate and rhythm, normal S1 and S2, no murmurs, rubs or gallops ABDOMEN: Soft, +Tenderness at the lower abdominal radiation site (chronic per patient). +Hyperactive bowel sounds. No guarding, no rebound. No masses EXTREMITIES: Normal range of motion, no edema. No clubbing or cyanosis. No cords, erythema, or tenderness NEUROLOGICAL: Cranial nerves II through XII grossly intact. Normal speech. Motor and sensation intact SKIN: Warm, Dry, normal turgor, no rashes or lesions noted. - Medical Decision Making 02/28/20 17:44 History confirmed with [facility] dialysis center, as patient was unclear on histor y. As per HD center, patient finished her full dialysis (3.5 hrs), was noted to have high BP 170s/100s, had multiple episodes of diarrhea, then BP was rechedked, and measured at 90/54. They offered her saline, however, patient was concerned due to her history of cancer, has been having diarrhea associated with her chemo. When EMS arrived, BP was 121/74. 02/28/20 19:02 As per discussion between resident physician and Dr. Dolan, will obtain blood cultures, magnesium level, and CT a/p. Signed out to Dr. Chow, pending these additional items. Discharge - Discharge Information Problems reviewed: Yes Clinical Impression/Diagnosis: Diarrhea Qualifiers: Diarrhea type: unspecified type Qualified Code(s): R19.7 - Diarrhea, unspecified - Follow up/Referral - Patient Discharge Instructions - Post Discharge Activity
[2020-02-28 18:06] LABS: ALBUMIN 1.9 g/dl (3.4-5.0); BLOOD UREA NITROGEN 20.7 mg/dL (7-18); CALCIUM 8.1 mg/dL (8.5-10.1); CREATININE 2.5 mg/dL (0.55-1.3); POTASSIUM 3.6 mmol/L (3.5-5.1)
[2020-02-28 18:10] LABS: BILIRUBIN,TOTAL 0.5 mg/dL (0.2-1); TOT PROT 5.2 g/dl (6.4-8.2)
[2020-02-28 18:57] LABS: MAGNESIUM 1.4 mg/dL (1.8-2.4)
[2020-02-28] MEDS ORDERED: FAMOTIDINE 20 MG/50 ML IVPB 20 MG/50 ML MG IVPB ONE ×2 (18:57→19:34)
[2020-02-28] MEDS ORDERED: MAGNESIUM SULF 50% (8.12 MEQ/2 ML-1 GM VIAL) IVPB ONE (19:25)
[2020-02-28] MEDS ORDERED: morphine CARPU-JECT 2 MG/1 ML DISP.SYRIN IVPUSH ONE (19:30)
[2020-02-28] MEDS ORDERED: MORPHINE SULFATE 2 MG/ML VIAL ONE (19:34)
[2020-02-28] MEDS ORDERED: MAGNESIUM 1GM/D5W - 1 GM/100 ML IVPB IVPB ONE (19:34)
--- NOTE | 2020-02-28 23:06 | PDOC ---
*Physical Exam - Vital Signs Last Vital Signs Temp Pulse Resp BP Pulse Ox 97.9 F 85 22 H 143/85 100 02/28/20 15:46 02/28/20 19:08 02/28/20 19:08 02/28/20 19:08 02/28/20 19:08 ED Treatment Course - LABORATORY CBC & Chemistry Diagram: 02/28/20 17:13 02/28/20 17:13 - ADDITIONAL ORDERS Additional order review: Laboratory Results 02/28/20 02/28/20 17:31 17:13 Sodium 139 Potassium 3.6 Chloride 108 H Carbon Dioxide 24 Anion Gap 6 L BUN 20.7 H Creatinine 2.5 H Est GFR (CKD-EPI)AfAm 27.14 Est GFR (CKD-EPI)NonAf 23.42 Random Glucose 116 H Calcium 8.1 L Magnesium 1.4 L Total Bilirubin 0.5 AST 17 ALT 13 Alkaline Phosphatase 85 Creatine Kinase 64 Troponin I 0.03 Total Protein 5.2 L Albumin 1.9 L Lipase 31 L Serum , Qual Negative 02/28/20 17:13 RBC 3.71 MCV 86.5 MCHC 34.7 RDW 16.1 H MPV 7.3 L Neutrophils % 77.7 Lymphocytes % 12.2 Monocytes % 7.8 Eosinophils % 1.6 Basophils % 0.7 - Medications Given in the ED: ED Medications Discontinued Medications Generic Name Dose Route Start Last Admin Trade Name Duaneq PRN Reason Stop Dose Admin Acetaminophen 1,000 mg 02/28/20 16:21 02/28/20 18:31 Ofirmev Injection - IVPB 02/28/20 16:22 Not Given ONCE ONE Acetaminophen 650 mg 02/28/20 17:26 02/28/20 18:31 Tylenol - PO 02/28/20 17:27 Not Given ONCE ONE Acetaminophen 1,000 mg 02/28/20 17:41 02/28/20 18:30 Ofirmev Injection - IVPB 02/28/20 17:42 1,000 mg ONCE ONE Administration Famotidine/Sodium Chloride 20 mg in 50 mls @ 100 mls/hr 02/28/20 18:57 02/28/20 19:42 Pepcid 20 Mg Premixed Ivpb - IVPB 02/28/20 19:26 100 mls/hr ONCE ONE Administration Magnesium Sulfate 1 gm 02/28/20 19:25 02/28/20 19:57 Magnesium Sulfate IVPB 02/28/20 19:26 1 gm ONCE ONE Administration Morphine Sulfate 2 mg 02/28/20 19:30 02/28/20 19:42 Morphine Injection - IVPUSH 02/28/20 19:31 2 mg ONCE ONE Administration Ondansetron HCl 4 mg 02/28/20 16:37 02/28/20 18:31 Zofran - PO 02/28/20 16:38 Not Given ONCE ONE Ondansetron HCl 4 mg 02/28/20 17:41 02/28/20 18:30 Zofran Injection IVPUSH 02/28/20 17:42 4 mg ONCE ONE Administration Medical Decision Making - Medical Decision Making 02/28/20 23:[address] Dolan. Per Dr. Dolan, the patient can stay here. She spoke to Dr. Ram who will be following the patient. Per Dr. Dolan, the patient will need a heparin drip, but no bolus. The patient should have platelets above 55 before the heparin is given. 02/28/20 23:23 Discharge - Follow up/Referral Referrals: Laxmi Read NP [Primary Care Provider] - - Patient Discharge Instructions - Post Discharge Activity
--- OUTSIDE RECORDS SUMMARY | 2020-02-28 23:35 | XMS ---
:1980 [facility] Organization [facility] Providers Name Role [...] is protected by Article 27-F of the [facility] Public Health law. If you continue you may haveaccess to information: Regarding HIV / AIDS; Provided by facilities licensed or operated by the [facility] Office of Mental Health; or Provided by the [facility] Office for People With Developmental Disabilities. If such information is present, then the following [facility] mandated warning applies: This information has been [...] rash Active eCW2 (Polo / Clavulanate 125 [facility]alth MG Oral Tablet Care) [Augmentin] Food allergy No Known Food No Known Food [facility] Allergies Allergies [facility] Drug allergy No Known Drug No Known Drug [facility] Allergies Allergies [facility] Drug allergy Augmentin Amoxicillin / rash Active eCW3 ([facility] Clavulanate [facility]) Encounters Encounter Providers Location Date Indications Data Source(s ) Outpatient 01/09/2020 12:46:00 CERVICAL CA [facility] PM EDT CERVICAL CA Outpatient Attender: [address] 08/03/2019 04:32:19 PM [facility] Patient admitted. Outpatient Attender: [address] 08/03/2019 04:32:06 PM [facility] Patient admitted. Outpatient Attender: [address] 08/03/2019 04:31:35 PM [facility] Patient admitted. Outpatient [facility] 10/26/2018 12:00:00 eCW3 ([facility] A28 AM EDT - 10/26/2018 [facility] 12:00:00 AM EDT Care) Emergency H 07/11/2018 02:46:00 [facility] 05/08/2018 12:00:0 0 eCW2 ([facility] AM EST [facility] 05/07/2018 12:00:00 eCW2 ([facility] AM EST [facility]) [facility] 04/17/2018 12:00: 00 eCW2 ([facility] 12:00: 00 eCW2 ([facility] AM EDT [facility] Janeen [place] 02/25/2018 12:00:00 eCW2 ([facility] AM EDT [facility]) Silvia Freemanleopoldo Yu 02/12/2018 12:00: 00 eCW2 ([facility] AM EDT [facility]) Silvia Pachecomonica Yu 01/20/2018 12:00: 00 eCW2 ([facility] AM EDT [facility]) Silvia Pachecomonica Yu 10/26/2017 12:00: 00 eCW2 ([facility] AM EDT [facility]) Silvia Pachecomonica Yu 10/13/2017 12:00: 00 eCW2 ([facility] AM EDT [facility]) Silvia Pachecomonica Yu 10/09/2017 12:00: 00 eCW2 ([facility] AM EDT [facility]) Silvia Pachecomonica Yu 10/06/2017 12:00: 00 eCW2 ([facility] AM EDT [facility]) Silvia Pachecomonica Yu 10/02/2017 12:00: 00 eCW2 ([facility] AM EDT [facility]) Silvia Pachecomonica Yu 08/06/2017 12:00: 00 eCW2 ([facility] AM EDT [facility]) Silvia De Paznjayce Pachecomonica [place] 08/04/2017 12:00: 00 eCW2 ([facility] AM EDT [facility]) Silvia Pachecomonica [place] 08/03/2017 12:00: 00 eCW2 ([facility] AM EDT [facility]) Silvia De Paznkers Janeen Yu 06/29/2017 12:00: 00 eCW2 ([facility] AM EST [facility]) Silvia Pachecomonica Yu 06/25/2017 12:00: 00 eCW2 ([facility] AM EST [facility]) Silvia Pachecomonica Yu 04/07/2017 12:00: 00 eCW2 ([facility] AM EST [facility]) Silvia Pachecomonica Yu 03/26/2017 12:00: 00 eCW2 ([facility] AM EDT [facility]) Crewe Mundo Pachecomonica Yu 12/26/2016 12:00: 00 eCW2 ([facility] AM EDT [facility]) Silvia Pachecomonica Yu 08/20/2016 12:00: 00 eCW2 ([facility] AM EDT [facility]) Silvia De Paznjayce Pachecomonica Yu 06/10/2016 12:00: 00 eCW2 ([facility] AM EST [facility]) Cre[place] M[place] Pachecomonica Yu 05/21/2016 12:00: 00 eCW2 ([facility] AM EST [facility]) Crewe Mundo Pachecomonica Yu 04/23/2016 12:00: 00 eCW2 ([facility] AM EST [facility]) Crewe Mundo Pachecomonica Yu 04/09/2016 12:00: 00 eCW2 ([facility] AM EST [facility]) [place] Workman Janeen Yu 03/11/2016 12:00: 00 eCW2 ([facility] AM EDT [facility]) [place] De Paznkers Janeen Yu 02/29/2016 12:00: 00 eCW2 ([facility] AM EDT [facility]) [place] De [place] Janeen Yu 02/28/2016 12:00: 00 eCW2 ([facility] AM EDT [facility]) [place] De P[place] Janeen Yu 02/06/2016 12:00: 00 eCW2 ([facility] AM EDT [facility]) Silvia Freemanleopoldo Yu 12/26/2015 12:00: 00 eCW2 ([facility] AM EDT [facility]) Silvia Pachecomonica Yu 12/26/2015 12:00: 00 eCW2 ([facility] AM EDT [facility]) Silvia Pachecomonica Yu 12/20/2015 12:00: 00 eCW2 ([facility] AM EDT [facility]) Silvia Pachecomonica Yu 12/20/2015 12:00: 00 eCW2 ([facility] AM EDT [facility]) Silvia Pachecomonica Yu 06/08/2015 12:00: 00 eCW2 ([facility] AM EST [facility]) Cre[place] M[place] Pachecomonica Yu 05/10/2015 12:00: 00 eCW2 ([facility] AM EST [facility]) Crewe Mundo Pachecomonica Yu 03/22/2015 12:00: 00 eCW2 ([facility] AM EDT [facility]) Crewe Mundo Pachecomonica Yu 03/14/2015 12:00: 00 eCW2 ([facility] AM EDT [facility]) Crewe M[place] Pachecomonica Yu 01/12/2015 12:00: 00 eCW2 ([facility] AM EDT [facility]) [place] Pachecomonica [place] 12/21/2014 12:00: 00 eCW2 ([facility] AM EDT [facility]) [place] Mundo De Pazn[place] Janeen [place] 10/03/2014 12:00: 00 eCW2 ([facility] AM EDT [facility]) Crewe Mundo Hartshorne Janeen Yu 07/24/2014 12:00: 00 eCW2 ([facility] AM EST [facility]) [facility] 07/21/2014 12:00:00 eCW2 ([facility] AM EST [facility]) [facility] 06/27/2014 12:00: 00 eCW2 ([facility] AM EST [facility] 05/15/2014 12:00: 00 eCW2 ([facility] AM EST [facility]) [facility] 05/13/2014 12:00: 00 eCW2 ([facility] AM EST [facility]) [facility] 05/08/2014 12:00: 00 eCW2 ([facility] AM EST [facility] 04/17/2014 12:00: 00 eCW2 ([facility] AM EST [facility] 04/14/2014 12:00: 00 eCW2 ([facility] AM EST [facility]) [facility] 04/13/2014 12:0 0:00 eCW2 ([facility] AM EST [facility]) [facility] 04/05/2014 12:0 0:00 eCW2 ([facility] AM EST [facility]) [facility] 03/17/2014 12:00: 00 eCW2 ([facility] AM EDT [facility]) [facility] 03/14/2014 12:00: 00 eCW2 ([facility] AM EDT [facility] 01/20/2014 12:00: 00 eCW2 ([facility] AM EDT [facility]) [facility] 01/18/2014 12:0 0:00 eCW2 ([facility] AM EDT [facility]) Silvia Freemanleopoldo Yu 01/05/2014 12:00: 00 eCW2 ([facility] AM EDT [facility]) Silvia Pachecomonica Yu 10/25/2013 12:00: 00 eCW2 ([facility] AM EDT [facility]) Silvia Pachecomonica Yu 09/27/2013 12:00: 00 eCW2 ([facility] AM EDT [facility]) Silvia Pachecomonica Yu 08/05/2013 12:00: 00 eCW2 ([facility] AM EDT [facility]) Silvia Pachecomonica Yu 07/21/2013 12:00: 00 eCW2 ([facility] AM EST [facility]) Crewe Mundo Pachecomonica Yu 07/01/2013 12:00: 00 eCW2 ([facility] AM EST [facility]) Crewe Mundo Pachecomonica Yu 06/30/2013 12:00: 00 eCW2 ([facility] AM EST [facility]) Silvia Pachecomonica Yu 06/09/2013 12:00: 00 eCW2 ([facility] AM EST [facility]) Silvia Pachecomonica Yu 05/16/2013 12:00: 00 eCW2 ([facility] AM EST [facility]) Silvia Pachecomonica Yu 02/22/2013 12:00: 00 eCW2 ([facility] AM EDT [facility]) Silvia Workman Janeen Yu 01/03/2013 12:00: 00 eCW2 ([facility] AM EDT [facility]) Silvia De Paznkers Janeen Yu 12/01/2012 12:00: 00 eCW2 ([facility] AM EDT [facility]) [place] 11/03/2012 12:00: 00 eCW2 ([facility] AM EDT [facility]) Crewe Mundo [place] 09/30/2012 12:00: 00 eCW2 ([facility] AM EDT [facility]) [place] 09/21/2012 12:00: 00 eCW2 ([facility] AM EDT [facility]) [place] 09/17/2012 12:00: 00 eCW2 ([facility] AM EDT [facility]) [place] 09/10/2012 12:00: 00 eCW2 ([facility] AM EDT [facility]) Cre[place] Mundo [place] 06/30/2012 12:00: 00 eCW2 ([facility] AM EST [facility]) [facility] Jac[facility] Freemann [place] 03/04/2012 12:00: 00 eCW2 ([facility] AM EDT [facility]) [facility] Gigi 02/19/2012 12:00:00 eCW2 ([facility] AM EDT [facility]) [facility] 01/16/2012 12:00:00 eCW2 ([facility] AM EDT [facility]) [facility] [place]idel[place] 01/15/2012 12:00:00 eCW2 ([facility] AM EDT [facility] 12/11/2011 12:00:00 eCW2 ([facility] AM EDT [facility]) [facility] Jacinta Freemann [place] 07/15/2011 12:00: 00 eCW2 ([facility] AM EST [facility]) [facility] Jacinta Pachecolyn [place] 07/12/2011 12:00: 00 eCW2 ([facility] AM EST [facility]) [facility] 12/03/2010 12:00:00 eCW2 ([facility] AM EDT [facility]) [facility] 11/19/2010 12:00:00 eCW2 ([facility] AM EDT [facility]) [facility] 11/18/2010 12:00:00 eCW2 ([facility] AM EDT [facility]) [facility] 08/26/2010 12:00:00 eCW2 ([facility] AM EDT [facility]) [facility] 08/23/2010 12:00:00 eCW2 ([facility] AM EDT [facility]) [facility] 07/26/2010 12:00:00 eCW2 ([facility] AM EST [facility]) [facility] 07/25/2010 12:00:00 eCW2 ([facility] AM EST [facility]) [facility] 07/23/2010 12:00:00 eCW2 ([facility] AM EST [facility]) [facility] 05/08/2010 12:00:00 eCW2 ([facility] AM EST [facility]) [facility] 05/07/2010 12:00:00 eCW2 ([facility] AM EST [facility]) [facility] 05/07/2010 12:00:00 eCW2 ([facility] AM EST [facility]) [facility] 04/10/2010 12:00:00 eCW2 ([facility] AM EST [facility]) [facility] 04/03/2010 12:00:00 eCW2 ([facility] AM EST [facility]) [facility] 03/18/2010 12:00:00 eCW2 ([facility] AM EDT [facility]) [facility] 03/07/2010 12:00:00 eCW2 ([facility] AM EDT [facility]) [facility] 03/06/2010 12:00:00 eCW2 ([facility] AM EDT [facility]) [facility] 03/05/2010 12:00:00 eCW2 ([facility] AM EDT [facility]) [facility] 02/28/2010 12:00:00 eCW2 ([facility] AM EDT [facility]) [facility] 02/27/2010 12:00:00 eCW2 ([facility] AM EDT [facility]) [facility] 01/07/2010 12:00:00 eCW2 ([facility] AM EDT [facility]) [facility] 12/13/2009 12:00:00 eCW2 ([facility] AM EDT [facility]) [facility] 09/10/2009 12:00:00 eCW2 ([facility] AM EDT [facility]) [facility] 09/06/2009 12:00:00 eCW2 ([facility] AM EDT [facility]) [facility] 09/05/2009 12:00:00 eCW2 ([facility] AM EDT [facility]) [facility] 06/15/2009 12:00:00 eCW2 ([facility] AM EST [facility]) [facility] 01/26/2009 12:00:00 eCW2 ([facility] AM EDT [facility]) [facility] 11/22/2008 12:00:00 eCW2 ([facility] AM EDT [facility]) Immunizations Vaccine Date Status Description Data Source(s) New in 2011. IIV4 07/11/2017 completed [facility] 01:18:00 PM EST Center Note that this vaccine 05/04/2016 completed [facility] Medical name has changed. See 03:04:00 PM EST Ce nter also Td (adult). It is not adsorbed. No Known Immunizations completed eCW2 ([facility]) Medications Medication Brand Start Product Dose Route Administrative Pharmacy [facility] Indications Reaction Description Data Name Date Form Instructions Instructions Source(s) Paroxetine Paxil .0 Oral active NETS MART 10 MG Oral 2020 Table ([address] [facility] Tablet 04:00: t er Sikh [Paxil] 00 AM Community EDT Services) Paroxetine Paxil .0 Oral active NETS MART 10 MG Oral 2020 Table ([address] Tablet 04:00: t er Sikh [Paxil] 00 AM Community EDT Services) Naphazoline [...] Table ([facility] Tablet 05:00: t er Sikh [Paxil] 00 AM Community EST Services) Paroxetine Paxil .0 Oral active NETS MART 10 MG Oral 2020 Table ([address] Tablet 05:00: t er Sikh [Paxil] 00 AM Community EST Services) Acetaminoph [...] MG Oral 100 mg ([place]ud[place] n Tablet Tennyson [Zoloft] [facility] Zoloft 100 Care) mg Iron 325 Iron [...] e CW2 0.5 MG Oral in 0.5 ([facility] Tennyson [Klonopin] [facility] Klonopin Care) 0.5 mg 3 ML HumaLO active sliding eCW2 Insulin G scale up to ([place]uds on Lispro 100 KwikPe 10 units Jomar er UNT/ML Pen n 100 Health Injector UNIT/M Care) [Humalog] L HumaLOG KwikPen 100 UNIT/ML aripiprazol Abilif active 1 tablet eCW2 e 10 MG y 10 (Polo Oral Tablet MG Tennyson [Abilify] [facility] Abilify 10 Care) MG Losartan Losart 1.0 active Losartan eCW 3 Potassium an {tabl Potassium 50 ( Polo 50 MG Oral Potass et} MG [facility] Tablet ium 50 [facility] Care) Depo UNK active as directed eCW2 Provera ([place] [facility]) 150 MG/ML Depo UNK active as directed eCW2 Provera ([place] [facility]) 150 MG/ML Insurance Providers Payer name Policy type Policy ID Covered Covered green party's Policy P chas / Coverage green party ID relationship to [facility] ormation type charles [employer] [place] [id number] [place] [id number] [facility] MEDICA[facility] [id number] SP [id number] [employer] [place] [id number] SP [id number] [facility] CZECH [id number] PT [id number] 500 [facility] [id number] 01 [id number] 500 W [id number] 01 [id number] [facility] [id number] 01 [id number] HEALTH ACUTE Problems, Conditions, and Diagnoses Code Display Name Description Problem Type Effective Data Dates Source(s) N92.1 Menorrhagia with Menorrhagia with Problem 08/25/2019 eC W3 ([facility]o irregular cycle irregular cycle 12:00:00 AM [facility] EDT Care) J45.40 Moderate persistent Moderate persistent Problem 020 eCW3 ([facility] asthma without asthma without 12:00:00 AM [facility] complication complication EST Care) G62.9 Polyneuropathy Polyneuropathy Problem 10/26/2018 eCW3 ( [facility] 12:00:00 AM [facility] EDT Care) I10 Essential Essential Problem 10/26/2018 eCW3 ([facility] hypertension hypertension 12:00:00 AM [facility] EDT Care) E66.01 Morbid obesity Morbid obesity Problem 10/26/2018 eCW3 ( [facility] 12:00:00 AM [facility] EDT Care) D64.9 Anemia Anemia, unspecified Problem 09/30/2018 eCW3 ([facility] 12:00:00 AM [facility] EDT Care) E11.9 Type II diabetes Type 2 diabetes Problem 09/30/2018 eCW 3 ([facility] mellitus without mellitus without 12:00:00 AM [facility] complication complications EDT Care) J45.909 Asthma without Unspecified asthma, Problem 09/30/2018 e CW3 ([facility] status asthmaticus uncomplicated 12:00:00 AM [facility] EDT Care) 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 019 NETSMART disorder disorder 04:00:00 AM ([facility]) [id number] Posttraumatic stress Posttraumatic Complaint 08/23/2018 N ETSMART disorder stress disorder 04:00:00 AM ([facility]) [id number] Panic disorder Panic disorder Complaint 08/23/2018 NETSMA RT without agoraphobia without agoraphobia 04:00:0 0 AM ([facility]) N92.1 Menometrorrhagia Menometrorrhagia Problem 10/13/2017 eC W2 ([facility]o 12:00:00 AM [facility] EDT Care) N93.9 Vaginal bleeding Vaginal bleeding Problem 10/06/2017 eC W2 ([facility]o 12:00:00 AM [facility] EDT Care) E66.8 Obesity Other obesity Problem 10/06/2017 eCW2 ([place] n 12:00:00 AM [facility] EDT Care) 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 Problem 08/03/2017 eCW3 ([facility]o use of insulin use of insulin 12:00:00 AM [facility] EDT Care) J45.41 Moderate persistent Moderate persistent Problem 018 eCW3 ([facility] asthma with acute asthma with acute 12:00:00 AM [facility] exacerbation exacerbation EDT Care) E11.65 Type 2 diabetes Type 2 diabetes Problem 08/03/2017 eCW3 ([facility] mellitus with mellitus with 12:00:00 AM [facility] hyperglycemia hyperglycemia EDT Care) J45.41 Moderate persistent Moderate persistent Problem 018 eCW2 ([facility] asthma with acute asthma with acute 12:00:00 AM [facility] exacerbation exacerbation EDT Care) E11.65 Type 2 diabetes Type 2 diabetes Problem 08/03/2017 eCW2 ([facility] mellitus with mellitus with 12:00:00 AM [facility] hyperglycemia hyperglycemia EDT Care) 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 Problem 08/03/2017 eCW2 ([place] use of insulin use of insulin 12:00:00 AM [facility] EDT Care) Q61.00 Renal cyst Renal cyst Problem 08/20/2016 eCW3 ([facility] 12:00:00 AM [facility] EDT Care) Q61.00 Renal cyst Renal cyst Problem 08/20/2016 eCW2 ([facility] 12:00:00 AM [facility] EDT Care) E11.9 Diabetes mellitus Type 2 diabetes Problem 08/20/2016 eC W2 ([facility]o type 2 mellitus with goal 12:00:00 AM [facility] of symptom EDT Care) management G62.9 Peripheral Peripheral Problem 05/21/2016 eCW2 ([facility] neuropathy neuropathy 12:00:00 AM [facility] EST Care) K30 Dyspepsia Dyspepsia Problem 05/21/2016 eCW2 ([facility] 12:00:00 AM [facility] EST Care) E11.9 Diabetes mellitus Diabetes Problem 05/10/2015 eCW2 ([facility] without complication 12:00:00 AM [facility] EST Care) J45.901 Asthma exacerbation Asthma exacerbation Problem 10/29/2 015 eCW2 ([facility] 12:00:00 AM [facility] EDT Care) 590.80 Pyelonephritis Pyelonephritis Problem 06/27/2014 eCW2 ( [place] 12:00:00 AM [facility] Care) 493.92 Exacerbation of Asthma exacerbation Problem 10/25/2013 eCW2 ([place] asthma 12:00:00 AM [facility] EDT Care) 477.9 Allergic rhinitis ALLERGIC RHINITIS Problem eCW2 ([place] NOS [facility]) 285.9 Anemia Anemia Problem eCW2 ([facility]) 493.90 Asthma without Asthma Intermittent Problem e CW2 ([place] status asthmaticus [facility]) 401.9 Essential Essential Problem eCW2 ([place] hypertension Hypertension, [facility] Unspec Care) 791.0 Proteinuria Proteinuria Problem eCW2 ([facility]) 250.00 Diabetes mellitus Diabetes mellitus Problem eCW2 ([place] type 2 type 2 [facility]) 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 Q61.02 Diagnosis 01/09/2020 [facility] renal cysts 12:46:00 PM Hospital EDT N20.0 Calculus of kidney N20.0 Diagnosis 01/09/2020 [facility] 12:46:00 PM Hospital EDT J90 Pleural effusion, J90 Diagnosis 01/09/2020 [place] not elsewhere 12:46:00 PM Hospital classified EDT I31.3 Pericardial effusion I31.3 Diagnosis 01/09/2020 [place] (noninflammatory) 12:46:00 PM Hospit al EDT I51.7 Cardiomegaly I51.7 Diagnosis 01/09/2020 [facility] 12:46:00 PM Hospital EDT R91.8 Other nonspecific R91.8 Diagnosis 01/09/2020 [place] abnormal finding of 12:46:00 PM Hosp ital lung field EDT C53.9 Malignant neoplasm C53.9 Diagnosis 01/09/2020 [facility] of cervix uteri, 12:46:00 PM Hospita l unspecified EDT Surgeries/Procedures Procedure Description Date Indications Data Source(s) CUL PRSMPTV PTHGNC 02/25/2018 eCW2 ([facility] ORGANISM SCRN W/COLONY 12:00:00 AM EDT [facility] alth Care) ESTIMJ Results ID Date Data Source [id number] 02/20/2020 10:50:00 AM EDT [facility] Name Value Range Interpretation Code Description Data Radha rce(s) Supporting Document(s ) SARS COV-2 [facility] RT-PCR This lab was ordered by [facility]. and reported by [facility]. ID Date Data Source [id number] 02/04/2020 05:10:00 PM EDT [facility] Name Value Range Interpretation Description Data Sup porting Code Source(s) Document(s ) SARS [facility] coronavirus 2 RNA This lab was ordered by [facility] and reported by [facility]. ID Date Data Source [id number] 01/13/2020 10:30:00 AM EDT [facility] Name Value Range Interpretation Description Data Sup porting Code Source(s) Document(s ) SARS [facility] coronavirus 2 RNA This lab was ordered by [facility] and reported by [facility]. ID Date Data Source [id number] 12/26/2019 05:45:00 PM EDT [facility] Name Value Range Interpretation Description Data Sup porting Code Source(s) Document(s ) SARS [facility] coronavirus 2 RNA This lab was ordered by [facility] and reported by [facility]. ID Date Data Source [id number] 12/20/2019 06:45:00 PM EDT [facility] Name Value Range Interpretation Description Data Sup porting Code Source(s) Document(s ) SARS [facility] coronavirus 2 RNA This lab was ordered by [facility] and reported by [facility]. ID Date Data Source [id number] 11/17/2019 11:25:00 PM EDT [facility] Name Value Range Interpretation Description Data Sup porting Code Source(s) Document(s ) SARS [facility] CORONAVIRUS 2 RNA This lab was ordered by [facility] and reported by [facility]. ID Date Data Source [id number] 10/08/2019 03:15:00 PM EDT [facility] Name Value Range Interpretation Description Data Sup porting Code Source(s) Document(s ) SARS [facility] CORONAVIRUS 2 RNA This lab was ordered by [facility] and reported by [facility]. ID Date Data Source Liver Profile 07/11/2018 04:15:00 PM [facility] Name Value Range Interpretation Description Data [...] Data Source HematologyRou 07/11/2018 04:15:00 PM EST [facility] Name Value Range Interpretation Description Data Sup [...] Date Data Source GFR(Creatinine) 07/11/2018 04:15:00 PM [facility] Name Value Range Interpretation Code Description Data Radha rce(s) Supporting Document(s ) UNK > 60 Below low normal <content [facility] styleCode="Bold"> Medical Cent er EGFR </content>39 GFR L<content styleCode="Italic s"> (> 60 GFR)</content> ID Date Data Source CHMROUTINECCDA 07/11/2018 04:15:00 PM [facility] Name Value Range Interpretation Description Data Sup porting Code Source(s) Document(s ) Lipase 23-300 <content [facility] [Enzymatic styleCode="Bold Medical activity/vo ">Lipase Center lume] in </content>49 Serum or IU/L<content Plasma styleCode="Ital ics"> (23-300 IU/L)</content> ID Date Data Source BMP 07/11/2018 04:15:00 PM EST [facility] Name Value Range Interpretation Description Data Sup [...] 7-17 Above high <content Saint normal styleCode="Bold"> [facility] BUN </content>28 Medical MG/DL H<content Center styleCode="Italic [...] Data Source Urinalysis 07/11/2018 03:50:00 PM EST [facility] Name Value Range Interpretation Description Data Sup [...] by Test d">Urine Medical strip Specific Center [place] </content>1.02 5 NM<content styleCode="Cheryl lics"> (1.015-1.025 NM)</content> [...] GROUP A 02/25/2018 12:00:00 AM EDT eCW2 ([facility] BETA-HEMOLYTIC.1 Care) Name Value Range Interpretation Description Data Sup porting Code Source(s) Document(s ) Streptococcus NEGATIVE NEGATIVE STREP, GRP.A, eCW2 pyogenes DNA ([place] [Presence] in [place] [facility] by [facility] Care) specific culture ID Date Data Source Rapid Strep A, In House.0 02/25/2018 12:00:00 AM EDT eCW2 ([facility]) Name Value Range Interpretation Description Data Sup porting Code Source(s) Document(s ) negative negative - Rapid Strep A eCW2 ([facility]) Procedure Social History Code Duration Value Status Description Data Source(s ) Smoking 09/08/2019 Former Smoker completed Former Smoker eCW3 ( [facility] 12:00:00 AM EDT [facility]) Smoking 07/11/2018 Former Smoker completed Former Smoker [facility] 03:[facility]:00 PM EST Medical C enter Smoking 07/11/2018 Former Smoker completed Former Smoker [facility] 03:22:00 PM EST Medical C enter Smoking 07/11/2018 Former Smoker completed Former Sm[facility] 02:52:00 PM EST Medical C enter Former Smoker completed Former Smoker eCW3 ([facility]) Smoking Unknown if ever completed Unknown if ever eCW2 ([facility]) Vital Signs ID Date Data Source UNK Name Value Range Interpretation Code Description Data Source(s) Diastolic blood 78 mm[Hg] 78 mm[Hg] eCW3 ([facility]) Systolic blood 123 mm[Hg] 123 mm[Hg] eCW3 ([facility]) Body temperature 97.6 [degF] 97.6 [degF] eCW3 ( [facility]) Heart rate 18 /min 18 /min eCW3 ([facility]) Body mass index 42.53 kg/m2 42.53 kg/m2 eCW3 ([facility] (BMI) [Ratio] [facility]) Body weight 242.0 242.0 [lb_av] eCW3 ([facility] [lb_av] [facility]) Body height 63.25 [in_i] 63.25 [in_i] eCW3 ([facility]) Body temperature 37.219412 37.082468 [facility] Respiratory rate 18 /min 18 /min [facility] Oxygen saturation 98 % 98 % [facility] Arterial blood [facility] by Pulse oximetry Heart rate 82 /min 82 /min [facility] Diastolic blood 76 mm[Hg] 76 mm[Hg] [facility] pressure [facility] Systolic blood 139 mm[Hg] 139 mm[Hg] [facility] Body temperature 36.173153 36.448156 [facility] Respiratory rate 18 /min 18 /min [facility] Oxygen saturation 98 % 98 % [facility] Arterial blood [facility] Center by Pulse oximetry Heart rate 80 /min 80 /min [facility] Diastolic blood 78 mm[Hg] 78 mm[Hg] [facility] Systolic blood 140 mm[Hg] 140 mm[Hg] [facility] Body weight 92.983854 kg 92.595351 kg [facility] Body temperature 36.200652 36.213527 [facility] Respiratory rate 17 /min 17 /min [facility] Oxygen saturation 100 % 100 % [facility] Arterial blood [facility] by Pulse oximetry Heart rate 101 /min 101 /min [facility] Body height 162.839471 162.396284 cm [facility] Diastolic blood 75 mm[Hg] 75 mm[Hg] [facility] Systolic blood 137 mm[Hg] 137 mm[Hg] [facility] Body mass index 35.1 kg/m2 35.1 kg/m2 [facility] (BMI) [Ratio] [facility] Diastolic blood 82 mm[Hg] 82 mm[Hg] eCW2 ([facility]) Systolic blood 129 mm[Hg] 129 mm[Hg] eCW2 ([facility]) Body temperature 100.4 [degF] 100.4 [degF] eCW2 ([facility]) Body mass index 37.42 kg/m2 37.42 kg/m2 eCW2 ([facility] (BMI) [Ratio] [facility]) Body weight 218 [lb_av] 218 [lb_av] eCW2 ([facility]) Body height 64 [in_us] 64 [in_us] eCW2 ([facility]) Patient Treatment Plan of Care Planned Activity Planned Date Details Description Data Source (s) Naphazoline Hydrochloride 09/08/2019 12:00:00 eCW3 ([facility] 0.25 MG/ML / Pheniramine AM EDT [facility]) Maleate 3 MG/ML Ophthalmic Solution [Naphcon A]
--- NOTE | 2020-02-29 00:08 | PN ---
Teaching Attending Note Name of Resident: Erick Shell ATTENDING PHYSICIAN STATEMENT I saw and evaluated the patient. I reviewed the resident's note and discussed the case with the resident. I agree with the resident's findings and plan as documented. SUBJECTIVE: 40yoF with h/o ESRD on HD TThSa secondary to PCKD, cervical cancer on chemo, T1DM, bipolar disorder, depression, and anxiety who presents from her dialysis center for evaluation of volatile blood pressure and diarrhea. Patient reports chronic diarrhea 1-2 times daily, usually worse after her weekly chemo on Wednesdays. Today while at dialysis she was noted to have elevated blood pressure and complained of lightheadedness. She had an episode of diarrhea with subsequent low BP reportedly 90/50 so EMS was called. She did not receive fluids en route. Patient incidentally notes cramping LUQ abdominal pain intermittently for the past month. Afebrile and hemodynamically stable on arrival to the ED. Labs notable for WBC 3.5, hgb 11.1, platelets 78, creatinine 2.5. CT abd/pelvis which showed splenomegaly and 3.8cm low-attenuation density suggestive of splenic infarct vs lesion. ED discussed case with patient's oncologist, Dr. Dolan, who recommended starting heparin gtt without bolus (hold for platelet <55) and surgical consult. Surgery, Dr. Ram is aware and will follow. At time of evaluation, patient complains of heart burn and abdominal discomfort. OBJECTIVE: Vital Signs - 24 hr 02/28/20 02/28/20 02/28/20 15:46 17:42 19:08 Temperature 97.9 F Pulse Rate 71 Pulse Rate [ 85 Radial] Respiratory 20 22 H Rate Blood Pressure 138/88 Blood Pressure 143/85 [Right Arm] O2 Sat by Pulse 98 97 100 Oximetry (%) EXAM Gen: awake, alert, NAD HEENT: NC/AT. Moist mucous membranes CV: RRR, no MRG Resp: CTAB Abd: Soft, NT, ND. +bowel sounds. Ext: No edema Psych: AOx3, mildly anxious Lines: Right chest tunneled catheter; left chest portacath Laboratory Results - last 24 hr 02/28/20 02/28/20 02/28/20 17:13 17:13 17:31 WBC 3.5 L RBC 3.71 Hgb 11.1 Hct 32.1 L D MCV 86.5 MCH 30.0 MCHC 34.7 RDW 16.1 H Plt Count 78 L MPV 7.3 L Absolute Neuts (auto) 2.7 Neutrophils % 77.7 Lymphocytes % 12.2 Monocytes % 7.8 Eosinophils % 1.6 Basophils % 0.7 Nucleated RBC % 0 Sodium 139 Potassium 3.6 Chloride 108 H Carbon Dioxide 24 Anion Gap 6 L BUN 20.7 H Creatinine 2.5 H Est GFR (CKD-EPI)AfAm 27.14 Est GFR (CKD-EPI)NonAf 23.42 Random Glucose 116 H Calcium 8.1 L Magnesium 1.4 L Total Bilirubin 0.5 AST 17 ALT 13 Alkaline Phosphatase 85 Creatine Kinase 64 Troponin I 0.03 Total Protein 5.2 L Albumin 1.9 L Lipase 31 L Serum , Qual Negative ASSESSMENT AND PLAN: 40yoF with h/o ESRD on HD TThSa secondary to PCKD, cervical cancer on chemo, T1DM, bipolar disorder, depression, and anxiety who presents from her dialysis center for evaluation of volatile blood pressure and diarrhea, incidentally found to have possible splenic infarct. Splenic infarct CT abd/pelvis showed possible infarct vs lesion in the spleen ED discussed case with patient's oncologist, plan for heparin gtt after baseline PTT obtained - heparin gtt, hold for platelet <55 - Onc recommendations appreciated - Surgery aware, will follow - splenic US Chronic diarrhea Will r/o infectious etiology given immunocompromised status Abd exam reassuring - stool cultures, C. diff - f/u blood cultures ESRD 2/2 PCKD; h/o right hydroureteronephrosis s/p ureteral stent Receives HD via tunneled cath; reports tentative plan for LUE AV fistula with Dr. Hall after her portacath is removed Also noted h/o right hydroureteronephrosis secondary to invasive cervical cancer, s/p right ureteral stent on 12/[address] Conner On CT - renal consult to continue routine dialysis - continue sevelamer Pancytopenia in setting of cervical cancer on chemo/radiation Chemo weekly, cannot recall what agent Radiation daily - onc following as above - trend CBC T1DM: continue Lantus; ISS GERD: continue PPI HTN: continue home meds DVT ppx: on heparin gtt
--- NOTE | 2020-02-29 00:29 | HP ---
CHIEF COMPLAINT: diarrhea/dizziness PCP: none HISTORY OF PRESENT ILLNESS: Ms. Cobb is a 40F w a h/o Autosomal dominant Polycystic Kidney Disease, chronic anemia, Cervical CA on dialysis T,Th,Sat, brought in by ambulance for elevated blood pressure with dizziness and lightheaddedness and diarrhea during dialysis. The patient has been Afebrile and hemodynamically stable on arrival. Upon interview the patients main complaint was her dizziness and lower abdominal pain that she attributes to the diarrhea. She denies any further complaints. Heme onc and surgery were consulted about the case and recommended heparin ggt. The patient denies current nausea, vomiting, chest pain, or sob. Recent Travel: no PAST MEDICAL HISTORY: see hpi PAST SURGICAL HISTORY: R side renal J stent Social History: Smoking:no Alcohol:no Drugs: no Allergies No Known Allergies Allergy (Verified 02/28/20 15:46) HOME MEDICATIONS: Home Medications Medication Instructions Recorded Albuterol 0.083% Nebulizer Sarina 1 neb NEB Q6H PRN 10/06/17 [Ventolin 0.083% Nebulizer Soln -] Budesonide/Formeterol Fumarate 2 puff IH BID 10/06/17 [SYMBICORT 80/4.5mcg -] Insulin Glargine,Hum.rec.anlog 50 unit SQ BID 10/06/17 [Lantus] Insulin Lispro [Humalog] 30 unit SQ TID 04/18/18 Esomeprazole Magnesium [Nexium 40 mg PO DAILY 05/28/18 24Hr] Gabapentin [Neurontin] 100 mg PO BID 10/09/19 Sevelamer Carbonate [Renvela -] 800 mg PO TIDCM #90 tab 10/12/19 Acetaminophen [Tylenol 2 tab PO PRN 01/16/20 .Extra-Strength -] Oxycodone HCl [Roxicodone] 5 mg PO ASDIR 02/03/20 Ferrous Sulfate [Feosol] 325 mg PO DAILY 02/06/20 Folic Acid - 1 mg PO DAILY #30 tablet 02/06/20 Losartan Potassium 50 mg PO DAILY 02/06/20 Montelukast Sodium [Singulair] 10 mg PO DAILY 02/06/20 Omeprazole 40 mg PO DAILY 02/28/20 Ondansetron [Zuplenz] 8 mg PO BID 02/28/20 Prochlorperazine Maleate 10 mg PO Q8H 02/28/20 [Compazine] Sodium Bicarbonate - 650 mg PO TID 02/28/20 REVIEW OF SYSTEMS see above PHYSICAL EXAMINATION Vital Signs - 24 hr 02/28/20 02/28/20 02/28/20 15:46 17:42 19:08 Temperature 97.9 F Pulse Rate 71 Pulse Rate [ 85 Radial] Respiratory 20 22 H Rate Blood Pressure 138/88 Blood Pressure 143/85 [Right Arm] O2 Sat by Pulse 98 97 100 Oximetry (%) GENERAL: Awake, alert, and fully oriented, in no acute distress. HEAD: Normal with no signs of trauma. LUNGS: Breath sounds equal, clear to auscultation bilaterally. No wheezes, and no crackles. No accessory muscle use. HEART: Regular rate and rhythm, normal S1 and S2 without murmur, rub or gallop. ABDOMEN: Soft, nontender, distended, lower abdominal pain LOWER EXTREMITIES: 2+ pulses, warm, well-perfused. No calf tenderness. No peripheral edema. Laboratory Results - last 24 hr 02/28/20 02/28/20 02/28/20 17:13 17:13 17:31 WBC 3.5 L RBC 3.71 Hgb 11.1 Hct 32.1 L D MCV 86.5 MCH 30.0 MCHC 34.7 RDW 16.1 H Plt Count 78 L MPV 7.3 L Absolute Neuts (auto) 2.7 Neutrophils % 77.7 Lymphocytes % 12.2 Monocytes % 7.8 Eosinophils % 1.6 Basophils % 0.7 Nucleated RBC % 0 Sodium 139 Potassium 3.6 Chloride 108 H Carbon Dioxide 24 Anion Gap 6 L BUN 20.7 H Creatinine 2.5 H Est GFR (CKD-EPI)AfAm 27.14 Est GFR (CKD-EPI)NonAf 23.42 Random Glucose 116 H Calcium 8.1 L Magnesium 1.4 L Total Bilirubin 0.5 AST 17 ALT 13 Alkaline Phosphatase 85 Creatine Kinase 64 Troponin I 0.03 Total Protein 5.2 L Albumin 1.9 L Lipase 31 L Serum , Qual Negative ASSESSMENT/PLAN: Ms. Cobb is a 40F w a h/o Autosomal dominant Polycystic Kidney Disease, chronic anemia, Cervical CA who presents from her dialysis center for evaluation of volatile blood pressure and diarrhea #Splenic infarct CT of the abdomen reveals possible splenic infarct and must be further evaluated with ultrasonography. negative chest xray - confirm on ultrasound - consult heme/onc - analgesics, hydration, anti-emetics #ESRD on HD TTS (sec to PCKD) - Normal K/ Bicarb, euvolemic - Continue Sevelemer. - Consulted her trauma counsellor Dr. Dahl #Diarrhea, 2t2 Laxatives Afebrile monitor stools consider giving imodium #indigestion - protonix 40mg IV - given famotidine without any relief #Anemia 2t2 chemotheraputic agents vs ESRD Normocytic - Ferritin 469, Iron sat 18%, will send B12 level 423/Folate 4 - will supplement Folate No evidence of acute blood loss. #Thrombocytopenia - 2t2 cyclophosphamide - will hold anticoag #hypomagnesemia - will replete mg - continue to monitor #DM 1 - ISS - will contact Endo (Dr. Gera Shell) in regards to insulin pump #HTN - Continue Losartan #Cervical Ca, Stage IIIB - Patient taking cyclophosphamide - consult hem/onc #Bipolar Disorder/Depression/Anxiety - Continue home Paroxetine. #Asthma - Stable - continue home Albuterol PRN #DVT Px - SCDs. Heparin held due to Thrombocytopenia. ATTENDING PHYSICIAN STATEMENT I saw and evaluated the patient. I reviewed the resident's note and discussed the case with the resident. I agree with the resident's findings and plan as documented. SUBJECTIVE: OBJECTIVE: ASSESSMENT AND PLAN:
[2020-02-29 01:26] LABS: INR 0.9 (0.83-1.09); PROTHROMBIN TIME (PATIENT) 10.6 SEC (9.7-13.0)
[2020-02-29 01:28] LABS: ACTIVATED PTT 34.9 SECONDS (25.2-36.5)
[2020-02-29 02:44] VITALS: BMI 36.9
[2020-02-29] MEDS ORDERED: HEPARIN NA (PORCINE) 5,000 UNITS/ML 1ML VIAL IVPUSH PRN ×2 (08:26)
[2020-02-29] MEDS ORDERED: HEPARIN - 25,000 UNIT in SODIUM CHLORIDE 495 ML IV SCH (08:30)
--- NOTE | 2020-02-29 08:47 | EKG ---
Test Reason : Blood Pressure : / mmHG Vent. Rate : 087 BPM Atrial Rate : 087 BPM P-R Int : 166 ms QRS Dur : 080 ms QT Int : 368 ms P-R-T Axes : 046 -19 047 degrees QTc Int : 442 ms NORMAL SINUS RHYTHM POSSIBLE LEFT ATRIAL ENLARGEMENT BORDERLINE ECG WHEN COMPARED WITH ECG OF 04-FEB-2020 17:16, QUESTIONABLE CHANGE IN QRS AXIS ST NO LONGER ELEVATED IN INFERIOR LEADS Confirmed by Dorian Jj MD ([id number]) on 02/29/2020 8:46:43 AM Referred By: Confirmed By:Dorian Jj MD
[2020-02-29 09:06] LABS: HEMATOCRIT 26.5 % (32.4-45.2); HEMOGLOBIN 9.1 GM/dL (10.7-15.3); MCH 29.7 pg (25.7-33.7); MCHC 34.3 g/dl (32.0-36.0); MEAN CELL VOLUME 86.5 fl (80-96); MEAN PLT VOLUME 7.5 fl (7.5-11.1); PLATELET COUNT 91 K/MM3 (134-434); RBC 3.06 M/mm3 (3.60-5.2); RDW 16.3 % (11.6-15.6); WHITE BLOOD COUNT 3.6 K/mm3 (4.0-10.0)
--- NOTE | 2020-02-29 09:13 | CONSULT ---
- Consultation REQUESTING PROVIDER: CONSULT REQUEST: We have been asked to surgically evaluate this patient for splenic infarct Hospitalist:Shawn Cason MD HISTORY OF PRESENT ILLNESS: 40 y/o F w/ PMHx Polycystic Kidney Disease on HD (T, Th, S), chronic anemia, r ecently diagnosed with Cervical CA (Radiation/chemo) a/w h/a, dizziness and diarrhea during dialysis. General surgery consulted for Ct scan finding of ?splenic infarct vs lesion. Pt reports lower abdominal pain and diarrhea which began not long after beginning radiation treatment for her cervical cancer. Denies any h/o vascular disease or trtmt. Denies luq abdominal pain. Denies cp/sob, n/v. PMHx: as above PSHx: multiple abscess(w +mrsa), diabetes, asthma, polycystic kidney disease, anemia, kidney stones, Asthma, c-sections, I and D for prior abscesses. Home Medications Medication Instructions Recorded Albuterol 0.083% Nebulizer Sarina 1 neb NEB Q6H PRN 10/06/17 [Ventolin 0.083% Nebulizer Soln -] Budesonide/Formeterol Fumarate 2 puff IH BID 10/06/17 [SYMBICORT 80/4.5mcg -] Insulin Glargine,Hum.rec.anlog 50 unit SQ BID 10/06/17 [Lantus] Insulin Lispro [Humalog] 30 unit SQ TID 04/18/18 Esomeprazole Magnesium [Nexium 40 mg PO DAILY 05/28/18 24Hr] Gabapentin [Neurontin] 100 mg PO BID 10/09/19 Sevelamer Carbonate [Renvela -] 800 mg PO TIDCM #90 tab 10/12/19 Acetaminophen [Tylenol 2 tab PO PRN 01/16/20 .Extra-Strength -] Oxycodone HCl [Roxicodone] 5 mg PO ASDIR 02/03/20 Ferrous Sulfate [Feosol] 325 mg PO DAILY 02/06/20 Folic Acid - 1 mg PO DAILY #30 tablet 02/06/20 Losartan Potassium 50 mg PO DAILY 02/06/20 Montelukast Sodium [Singulair] 10 mg PO DAILY 02/06/20 Omeprazole 40 mg PO DAILY 02/28/20 Ondansetron [Zuplenz] 8 mg PO BID 02/28/20 Prochlorperazine Maleate 10 mg PO Q8H 02/28/20 [Compazine] Sodium Bicarbonate - 650 mg PO TID 02/28/20 Allergies Allergy/AdvReac Type Severity Reaction Status Date / Time No Known Allergies Allergy Verified 02/28/20 15:46 REVIEW OF SYSTEMS: CONSTITUTIONAL: Absent: fever, chills CARDIOVASCULAR: Absent: chest pain, syncope RESPIRATORY: Absent: cough, shortness of breath GASTROINTESTINAL: (+)abdominal pain, (-)abdominal distension, (-) nausea, (-)vomiting, (+)diarrhea, (-)constipation PHYSICAL EXAM: GENERAL: Awake, alert, and fully oriented, in no acute distress. HEAD: Normal with no signs of trauma. LUNGS: No accessory muscle use. ABDOMEN: Soft, obese, minimal ttp in hypogastric region, not distended, no guarding, no rebound Vital Signs Temperature 98.5 F 02/29/20 06:00 Pulse Rate 84 02/29/20 06:00 Respiratory Rate 20 02/29/20 06:00 Blood Pressure 152/72 02/29/20 06:00 O2 Sat by Pulse Oximetry (%) 96 02/29/20 06:00 Lab Results WBC 3.6 K/mm3 (4.0-10.0) L 02/29/20 08:13 RBC 3.06 M/mm3 (3.60-5.2) L 02/29/20 08:13 Hgb 9.1 GM/dL (10.7-15.3) L 02/29/20 08:13 Hct 26.5 % (32.4-45.2) L D 02/29/20 08:13 MCV 86.5 fl (80-96) 02/29/20 08:13 MCHC 34.3 g/dl (32.0-36.0) 02/29/20 08:13 RDW 16.3 % (11.6-15.6) H 02/29/20 08:13 Plt Count 91 K/MM3 (134-434) L 02/29/20 08:13 INR 0.90 (0.83-1.09) 02/28/20 00:00 Sodium 139 mmol/L (136-145) 02/28/20 17:13 Potassium 3.6 mmol/L (3.5-5.1) 02/28/20 17:13 Chloride 108 mmol/L (98-107) H 02/28/20 17:13 Carbon Dioxide 24 mmol/L (21-32) 02/28/20 17:13 Anion Gap 6 MMOL/L (8-16) L 02/28/20 17:13 BUN 20.7 mg/dL (7-18) H 02/28/20 17:13 Creatinine 2.5 mg/dL (0.55-1.3) H 02/28/20 17:13 Random Glucose 116 mg/dL (74-106) H 02/28/20 17:13 Calcium 8.1 mg/dL (8.5-10.1) L 02/28/20 17:13 A/P: 40 y/o F w/ PMHx Polycystic Kidney Disease on HD (T, Th, S), chronic anemia, recently diagnosed with Cervical CA (Radiation/chemo) a/w h/a, dizziness and diarrhea during dialysis. General surgery consulted for Ct scan finding of ?splenic infarct vs lesion. -U/S of spleen inconclusive, consider MRI for further evaluation -On heparin gtt per Oncology, monitor PTT and plts -Will review imaging with attending Dr Ram d/w attending Dr Ram
[2020-02-29 09:34] LABS: BILIRUBIN,TOTAL 0.5 mg/dL (0.2-1); BLOOD UREA NITROGEN 26.1 mg/dL (7-18); CREATININE 3.3 mg/dL (0.55-1.3); MAGNESIUM 1.8 mg/dL (1.8-2.4); PHOSPHOROUS 5.2 mg/dL (2.5-4.9); POTASSIUM 3.8 mmol/L (3.5-5.1); TOT PROT 5.4 g/dl (6.4-8.2)
[2020-02-29] MEDS ORDERED: PANTOPRAZOLE SODIUM 40 MG VIAL IVPUSH SCH (10:00)
[2020-02-29] MEDS: HEPARIN - 25,000 UNIT in SODIUM CHLORIDE 495 ML IV SCH (10:28)
[2020-02-29] MEDS ORDERED: SODIUM CHLORIDE 250 ML IV PRN (12:44)
--- NOTE | 2020-02-29 12:44 | CON.NEP ---
Consult Consult Specialty:: Nephrology Referred by:: Medicine Reason for Consultation:: ESRD on dialysis - History of Present Illness Chief Complaint: Diarrhea and abdominal pain History of Present Illness: This is a 40 year old woman with history of 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 Seen and examined at the bedside. Continues to have loose stools. Has lower abdominal pain. No fever, chills, N/V/D. BP has been stable. No chest pain or shortness of breath. Had full dialysis yesterday. No flank pain. - History Source History Provided By: Patient Limitations to Obtaining History: No Limitations - Past Medical History Pulmonary: Yes: Asthma Renal/: Yes: Renal Inusuff, Hemodialysis, Other ...LMP: 02/07/20 ...: No Infectious Disease: Yes: Other (HPV+, COVID+ (3mo ago)) Psych: Yes: Anxiety, Bipolar Endocrine: Yes: Diabetes Mellitus - Past Surgical History Past Surgical History: Yes: - Alcohol/Substance Use Hx Alcohol Use: No History of Substance Use: reports: None - Smoking History Smoking history: Former smoker Have you smoked in the past 12 months: No Aproximately how many cigarettes per day: 3 If you are a former smoker, when did you quit?: 2004 - Social History Usual Living Arrangement: With Child (Age 10, 16) History of Recent Travel: No Home Medications - Allergies Allergies/Adverse Reactions: Allergies Allergy/AdvReac Type Severity Reaction Status Date / Time No Known Allergies Allergy Verified 02/28/20 15:46 - Home Medications Home Medications: Ambulatory Orders Albuterol 0.083% Nebulizer Sarina [Ventolin 0.083% Nebulizer Soln -] 1 neb NEB Q6H PRN 10/06/17 Budesonide/Formeterol Fumarate [SYMBICORT 80/4.5mcg -] 2 puff IH BID 10/06/17 Insulin Glargine,Hum.rec.anlog [Lantus] 50 unit SQ BID 10/06/17 Insulin Lispro [Humalog] 30 unit SQ TID 04/18/18 Esomeprazole Magnesium [Nexium 24Hr] 40 mg PO DAILY 05/28/18 Gabapentin [Neurontin] 100 mg PO BID 10/09/19 Sevelamer Carbonate [Renvela -] 800 mg PO TIDCM #90 tab 10/12/19 Acetaminophen [Tylenol .Extra-Strength -] 2 tab PO PRN 01/16/20 Oxycodone HCl [Roxicodone] 5 mg PO ASDIR 02/03/20 Ferrous Sulfate [Feosol] 325 mg PO DAILY 02/06/20 Folic Acid - 1 mg PO DAILY #30 tablet 02/06/20 Losartan Potassium 50 mg PO DAILY 02/06/20 Montelukast Sodium [Singulair] 10 mg PO DAILY 02/06/20 Omeprazole 40 mg PO DAILY 02/28/20 Ondansetron [Zuplenz] 8 mg PO BID 02/28/20 Prochlorperazine Maleate [Compazine] 10 mg PO Q8H 02/28/20 Sodium Bicarbonate - 650 mg PO TID 02/28/20 Family Medical History Family History: Unremarkable Review of Systems - Review of Systems Constitutional: reports: No Symptoms Eyes: reports: No Symptoms HENT: reports: No Symptoms Neck: reports: No Symptoms Cardiovascular: reports: No Symptoms Respiratory: reports: No Symptoms Gastrointestinal: reports: Abdominal Pain, Diarrhea. denies: Nausea, Vomiting, Vomiting Blood Genitourinary: reports: No Symptoms Musculoskeletal: reports: No Symptoms Integumentary: reports: No Symptoms Neurological: reports: No Symptoms Nephrology Consult - Height Height: 5 ft 6 in - Weight Weight: 103.918 kg - BMI Body Mass Index (BMI): 36.9 - Lab Results CBC,BMP: CBC, BMP 02/29/20 08:13 02/29/20 08:13 Anion Gap: Anion Gap Anion Gap 8 MMOL/L (8-16) 02/29/20 08:13 - Physical Examination Vital Signs: Vital Signs Temperature 98.9 F 02/29/20 10:00 Pulse Rate 89 02/29/20 10:00 Respiratory Rate 20 02/29/20 10:00 Blood Pressure 162/95 02/29/20 10:00 O2 Sat by Pulse Oximetry (%) 99 02/29/20 10:00 Constitutional: Yes: No Distress, Calm Eyes: Yes: Conjunctiva Clear HENT: Yes: Atraumatic Neck: Yes: Supple Cardiovascular: Yes: Regular Rate and Rhythm Respiratory: Yes: Regular, CTA Bilaterally Gastrointestinal: Yes: Soft, Tenderness Extremities: No: Cold, Cool, Cyanosis Edema: No Neurological: Yes: Alert Assessment/Plan 40 year old woman with history of 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 1. Suspected Splenic infarction 2. Diarrhea 3. ESRD on HD 4. Hypertension 5. Cervical cancer 6. Bipolar disorder 7. Anemia in setting of CKD General surgery following, US of abdomen completed, read is pending on Heparin gtt as per Heme/Oncology F/u stool cultures for diarrhea s/p dialysis yesterday, no acute need for dialysis today Renal diet when able to take PO 1.2L daily fluid restriction Continue current antihypertensives Trend H/H, no EKTA given she has cervical cancer Heme/Onc evaluation Thank you Brian Dahl DO
--- NOTE | 2020-02-29 14:07 | PN ---
Teaching Attending Note Name of Resident: Zion Conner ATTENDING PHYSICIAN STATEMENT I saw and evaluated the patient. I reviewed the resident's note and discussed the case with the resident. I agree with the resident's findings and plan as documented. SUBJECTIVE: Seen and examined at bedside. Discussed case with radiology. Concerning for spl enic infarct. Will discuss with surgery and hematology regarding further management. Patient on heparin drip OBJECTIVE Last Vital Signs Temp Pulse Resp BP Pulse Ox 98.9 F 89 20 162/95 99 02/29/20 10:00 02/29/20 10:00 02/29/20 10:00 02/29/20 10:00 02/29/20 10:00 PE: Per resident note Labs/Imaging: reviewed ASSESSMENT/PLAN 40-year-old female past medical history of ESRD, stage IIIb cervical cancer on carboplatin and radiotherapy, DM 1, bipolar/depression/anxiety, asthma admitted From hemodialysis for labile blood pressure and diarrhea, 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 #Splenic infarct Likely in the setting of hypercoagulable state secondary to malignancy Follow-up ultrasound further supports. Per radiology MRI may be useful Surgery and hematology on board: We will discuss On heparin drip #Anemia of chronic disease -stable To follow heme-onc as an outpatient #Stage IIIb cervical cancer On carboplatin and radiotherapy Hematology/unk on board: Appreciate recommendations #Thrombocytopenia In the setting of chemotherapy Continue to monitor -per heme ok to continue heparin drip unless plts <55 #ESRD on HD -nephrology on board: appreciate recs
[2020-02-29] MEDS ORDERED: DEXAMETHASONE SODIUM PHOSPHATE 12 MG in SODIUM CHLORIDE 50 ML IVPB ONE (18:00)
[2020-02-29] MEDS ORDERED: PALONOSETRON HCL 0.25 MG/5 ML VIAL IVPUSH ONE (18:00)
[2020-02-29] MEDS ORDERED: ALBUTEROL SO4 HFA INHALER IH PRN (18:02)
--- NOTE | 2020-02-29 18:24 | PN ---
Physical Exam: SUBJECTIVE: Patient seen and examined at bedside. Endorsing suprapubic tenderness. OBJECTIVE: Vital Signs Period Temp Pulse Resp BP Sys/Farah Pulse Ox Last 24 Hr 98.2 F-98.9 F 84-90 20-22 126-162/72-95 96-100 GENERAL: NAD HEAD: Normal with no signs of trauma. EYES: EOMI Sclera Clear . LUNGS: Decreased breath sounds. HEART: RRR No MRG S1S2 ABDOMEN: Suprapubic tenderness. No guarding/Rigidity/rebound. EXTREMITIES: No CCE . Laboratory Results - last 24 hr 02/28/20 02/28/20 02/28/20 00:00 17:13 17:31 WBC RBC Hgb Hct MCV MCH MCHC RDW Plt Count MPV PT with INR 10.60 INR 0.90 PTT (Actin FS) 34.9 Sodium 139 Potassium 3.6 Chloride 108 H Carbon Dioxide 24 Anion Gap 6 L BUN 20.7 H Creatinine 2.5 H Est GFR (CKD-EPI)AfAm 27.14 Est GFR (CKD-EPI)NonAf 23.42 POC Glucometer Random Glucose 116 H Lactic Acid Calcium 8.1 L Phosphorus Magnesium 1.4 L Total Bilirubin 0.5 AST 17 ALT 13 Alkaline Phosphatase 85 Creatine Kinase 64 Troponin I 0.03 Total Protein 5.2 L Albumin 1.9 L Lipase 31 L Serum , Qual Negative 02/29/20 02/29/20 02/29/20 00:00 06:11 08:13 WBC 3.6 L RBC 3.06 L Hgb 9.1 L Hct 26.5 L D MCV 86.5 MCH 29.7 MCHC 34.3 RDW 16.3 H Plt Count 91 L MPV 7.5 PT with INR INR PTT (Actin FS) Sodium Potassium Chloride Carbon Dioxide Anion Gap BUN Creatinine Est GFR (CKD-EPI)AfAm Est GFR (CKD-EPI)NonAf POC Glucometer 130 Random Glucose Lactic Acid 0.8 Calcium Phosphorus Magnesium Total Bilirubin AST ALT Alkaline Phosphatase Creatine Kinase Troponin I Total Protein Albumin Lipase Serum , Qual 02/29/20 02/29/20 02/29/20 08:13 11:26 17:14 WBC RBC Hgb Hct MCV MCH MCHC RDW Plt Count MPV PT with INR INR PTT (Actin FS) Sodium 140 Potassium 3.8 Chloride 110 H Carbon Dioxide 22 Anion Gap 8 BUN 26.1 H Creatinine 3.3 H Est GFR (CKD-EPI)AfAm 19.41 Est GFR (CKD-EPI)NonAf 16.74 POC Glucometer 121 103 Random Glucose 123 H Lactic Acid Calcium 8.0 L Phosphorus 5.2 H Magnesium 1.8 Total Bilirubin 0.5 AST 16 ALT 12 L Alkaline Phosphatase 92 Creatine Kinase Troponin I Total Protein 5.4 L Albumin 2.0 L Lipase Serum , Qual Active Medications Generic Name Dose Route Start Last Admin Trade Name Freq PRN Reason Stop Dose Admin Albuterol Sulfate 1 amp 02/29/20 17:35 Ventolin 0.083% Nebulizer Soln - NEB Q6H PRN SHORTNESS OF BREATH Albuterol Sulfate 2 puff 02/29/20 18:02 Ventolin Hfa Inhaler - IH Q6H PRN SHORTNESS OF BREATH Budesonide/Formoterol Fumarate 2 puff 02/29/20 22:00 Symbicort 80/4.5mcg - IH BID UMBERTO Folic Acid 1 mg 03/01/20 10:00 Folic Acid - PO DAILY UMBERTO Gabapentin 600 mg 02/29/20 22:00 Neurontin - PO TID UMBERTO Heparin Sodium (Porcine) 25, 500 mls @ 20 mls/hr 02/29/20 08:32 02/29/20 10:28 000 unit/ Sodium Chloride IV 1,000 unit/hr TITR UMBERTO 20 mls/hr Administration Protocol 1,000 UNIT/HR Sodium Chloride 250 mls @ 3,000 mls/hr 02/29/20 12:44 Normal Saline - IV 03/01/20 12:44 PRN PRN Hypotension during Dialysis Carboplatin 50.02 mg/ Sodium 255.002 mls @ 510.004 mls/hr 02/29/20 18:30 Chloride IVPB 02/29/20 18:59 ONCE ONE Losartan Potassium 50 mg 03/01/20 10:00 Cozaar - PO DAILY UMBERTO Montelukast Sodium 10 mg 02/29/20 22:00 Singulair - PO HS [facility] Non-Formulary Medication 1 drop 02/29/20 22:00 Dorzolamide Hcl/Timolol Maleat [Cosopt Eye Drops] OP BID U[facility]O Pantoprazole Sodium 40 mg 03/01/20 10:00 Protonix - PO DAILY U[facility] Paroxetine HCl 10 mg 03/01/20 10:00 Paxil - PO DAILY [facility] Sevelamer Carbonate 800 mg 03/01/20 08:00 Renvela - PO TIDCM [facility] Sodium Bicarbonate 650 mg 02/29/20 22:00 Sodium Bicarbonate - PO TID U[facility]O ASSESSMENT/PLAN: 40-year-old female past medical history of ESRD, stage IIIb cervical cancer on carboplatin and radiotherapy, DM 1, bipolar/depression/anxiety, asthma admitted From hemodialysis for labile blood pressure and diarrhea, 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 #Splenic infarct On Heparin gtt. Bridge with coumadin to INR of 2-3, once INR is therapeutic Follow-up ultrasound further supports. Per radiology MRI may be useful Surgery and hematology on board. Recs appreciated #Anemia of chronic disease -stable To follow heme-onc as an outpatient #Stage IIIb cervical cancer On carboplatin and radiotherapy. 6th dose carboplatin today Hematology/unk on board: Appreciate recommendations #Thrombocytopenia In the setting of chemotherapy Continue to monitor -per heme ok to continue heparin drip unless plts <55 #ESRD on HD -nephrology on board: appreciate recs Visit type - Emergency Visit Emergency Visit: Yes ED Registration Date: 02/28/20 Care time: The patient presented to the Emergency Department on the above date and was hospitalized for further evaluation of their emergent condition. - New Patient This patient is new to me today: Yes Date on this admission: 02/29/20 - Critical Care Critical Care patient: No - Discharge Referral Referred to [facility] Med P.C.: No ATTENDING PHYSICIAN STATEMENT I saw and evaluated the patient. I reviewed the resident's note and discussed the case with the resident. I agree with the resident's findings and plan as documented. SUBJECTIVE: OBJECTIVE: ASSESSMENT AND PLAN:
[2020-02-29] MEDS ORDERED: SODIUM CHLORIDE IVPB ONE (18:30)
[2020-02-29] MEDS ORDERED: CARBOPLATIN IVPB ONE (18:30)
[2020-02-29] MEDS ORDERED: PORTA CATH FLUSH 10 ML IVPUSH ONE (19:40)
--- NOTE | 2020-02-29 19:59 | CON.HO ---
Consult - text type - Consultation Consultation Note: Patient seen and examined 40 y/o female with locally advanced cervical cancer wih paraaorticc fredi involvement on PET , getting concurrent carboplatin/RT comes in with episode of dizziness, HTN at dialysis on 02/29/20 Noted to have splenic hypodensity suspicious for splenic infarct on CT scan abdomen no fever/chills/ abdominal pain Had 2 bowel movements today Last Vital Signs Temp Pulse Resp BP Pulse Ox 97.8 F 95 H 18 138/91 98 02/29/20 19:33 02/29/20 19:33 02/29/20 19:33 02/29/20 19:33 02/29/20 19:00 Cor: RSR, No murmurs, No gallops Lungs: Clear to P&A Abd: Obese, Soft, Normal bowel sounds, no tenderness to palpation/guarding/rigidity Ext:No significant edema Skin: No rashes, Integument intact Labs reviewed Active Medications Albuterol Sulfate (Ventolin 0.083% Nebulizer Soln -) 1 amp NEB Q6H PRN PRN Reason: SHORTNESS OF BREATH Albuterol Sulfate (Ventolin Hfa Inhaler -) 2 puff IH Q6H PRN PRN Reason: SHORTNESS OF BREATH Budesonide/Formoterol Fumarate (Symbicort 80/4.5mcg -) 2 puff IH BID [facility] Folic Acid (Folic Acid -) 1 mg PO DAILY [facility] Gabapentin (Neurontin -) 600 mg PO TID [facility] Heparin Sodium (Porcine) 25, (000 unit/ Sodium Chloride) 500 mls @ 20 mls/hr IV TITR UMBERTO; Protocol Last Admin: 02/29/20 10:28 Dose: 1,000 unit/hr, 20 mls/hr Documented by: Sodium Chloride (Normal Saline -) 250 mls @ 3,000 mls/hr IV PRN PRN PRN Reason: Hypotension during Dialysis Stop: 03/01/20 12:44 Loperamide HCl (Imodium -) 4 mg PO ONCE ONE Stop: 02/29/20 20:06 Loperamide HCl (Imodium -) 2 mg PO Q6H PRN PRN Reason: DIARRHEA Losartan Potassium (Cozaar -) 50 mg PO DAILY [facility] Montelukast Sodium (Singulair -) 10 mg PO HS [facility] Non-Formulary Medication (Dorzolamide Hcl/Timolol Maleat [Cosopt Eye Drops]) 1 drop OP BID [facility] Pantoprazole Sodium (Protonix -) 40 mg PO DAILY [facility] Paroxetine HCl (Paxil -) 10 mg PO DAILY [facility] Sevelamer Carbonate (Renvela -) 800 mg PO TIDCM [facility] Sodium Bicarbonate (Sodium Bicarbonate -) 650 mg PO TID UMBERTO A/P 40 y/o female with locally advanced cervical cancer wih paraaorticc fredi involvement on PET , getting concurrent carboplatin/RT comes in with episode of dizziness, HTN at dialysis on 02/29/20 Noted to have splenic hypodensity suspicious for splenic infarct on CT scan abdomen Splenic infarct-- ? hypercoagulable state Heparin drip without bolus Bridge with coumadin to INR of 2-3, once INR is therapeutic Cardiology consult --? afib For 6 th dose weekly carboplatin today for dialysis in am -- discussed with nephrology team discussed with rad-onc team discussed with patients mother
[2020-02-29] MEDS ORDERED: LOPERAMIDE HCL 2 MG CAPSULE PO ONE (20:05)
[2020-02-29] MEDS ORDERED: LOPERAMIDE HCL 2 MG CAPSULE PO PRN (20:08)
[2020-02-29] MEDS ORDERED: oxyCODONE HCL 5 MG TABLET PO PRN (20:38)
[2020-02-29] MEDS: GABAPENTIN 300 MG CAPSULE PO SCH (21:41)
[2020-02-29] MEDS: SODIUM BICARBONATE 650 MG TABLET PO SCH (21:41)
[2020-02-29] MEDS: MONTELUKAST NA 10 MG TABLET PO SCH (21:41)
[2020-02-29] MEDS: amLODIPine BESYLATE 5 MG TABLET (FP) PO SCH (21:41)
[2020-02-29 22:00] LABS: INR 0.88 (0.83-1.09); PROTHROMBIN TIME (PATIENT) 10.4 SEC (9.7-13.0)
[2020-02-29] MEDS ORDERED: PATIENT'S OWN MEDICATION (NON-FORMULARY) (Dorzolamide Hcl/Timolol Maleat [Cosopt Eye Drops OP SCH (22:00)
[2020-02-29] MEDS ORDERED: GABAPENTIN 300 MG CAPSULE PO SCH (22:00)
[2020-02-29 22:02] LABS: ACTIVATED PTT 31.4 SECONDS (25.2-36.5)
[2020-02-29] MEDS: BUDESONIDE/FORMETEROL FUMARATE 80/4.5 mcg INHALER IH SCH (22:07)
[2020-02-29] MEDS: DORZOLAMIDE 2% HCL OPHTHALMIC SOLUTION 10 ML BOTTLE OU SCH (22:08)
[2020-02-29] MEDS: TIMOLOL 0.5% OPHTHALMIC SOL 5 ML BOTTLE OU SCH (22:08)
[2020-03-01] MEDS ORDERED: HEPARIN NA (PORCINE) 5,000 UNITS/ML 1ML VIAL IVPUSH PRN (00:44)
[2020-03-01] MEDS: SODIUM CHLORIDE 1,000 ML IV SCH (01:43)
[2020-03-01] MEDS: SODIUM BICARBONATE 650 MG TABLET PO SCH ×3 (06:54→22:24)
[2020-03-01 07:25] LABS: BASO % 0.4 % (0-2.0); HEMATOCRIT 28.2 % (32.4-45.2); HEMOGLOBIN 9.7 GM/dL (10.7-15.3); LYMPH % 8.7 % (8-40); MCH 29.8 pg (25.7-33.7); MCHC 34.4 g/dl (32.0-36.0); MEAN CELL VOLUME 86.7 fl (80-96); MEAN PLT VOLUME 7.8 fl (7.5-11.1); MONO % 2.4 % (3.8-10.2); NEUT % 88.5 % (42.8-82.8); PLATELET COUNT 107 K/MM3 (134-434); RBC 3.25 M/mm3 (3.60-5.2); RDW 16.3 % (11.6-15.6); WHITE BLOOD COUNT 3.8 K/mm3 (4.0-10.0)
[2020-03-01 08:03] LABS: ALBUMIN 2.2 g/dl (3.4-5.0); BILIRUBIN,TOTAL 0.4 mg/dL (0.2-1); CREATININE 4.1 mg/dL (0.55-1.3); MAGNESIUM 1.8 mg/dL (1.8-2.4); POTASSIUM 4.1 mmol/L (3.5-5.1)
--- NOTE | 2020-03-01 10:48 | PN ---
Progress Note (short form) - Note Progress Note: Attending Surgeon Seen in f/u; tolerating a diet and having liquid BM's; no abdominal pain VSS AF abdo-soft; flat and non tender IMP:no evidence of an acute surgical abdomen PLAN: As per Oncology for tx. of splenic infarct; reconsult as needed. Bakari Ram MD FACS
--- NOTE | 2020-03-01 11:03 | PN ---
Physical Exam: SUBJECTIVE: Patient seen and examined this AM. Abdominal pain improving, tolerating diet. OBJECTIVE: Vital Signs Period Temp Pulse Resp BP Sys/Farah Pulse Ox Last 24 Hr 97.8 F-98.6 F 86-96 18-20 138-171/78-98 98-100 GENERAL: A&Ox3, NAD HEAD: NCAT EYES: PERRL, EOMI ENT: Moist mucous membranes. NECK: Supple, No JVD CHEST: Right HD access, Left Permacath LUNGS: Diminished breath sounds at the bases, No wheezes. HEART: Regular rate and rhythm, normal S1 and S2 without murmur ABDOMEN: Obese, Soft, nontender, not distended, + bowel sounds, no guarding, no rebound EXTREMITIES: No peripheral edema. NEUROLOGICAL: Cranial nerves II-XII intact. Normal speech. SKIN: Warm, dry Laboratory Last Values WBC 3.8 K/mm3 (4.0-10.0) L 03/01/20 06:30 RBC 3.25 M/mm3 (3.60-5.2) L 03/01/20 06:30 Hgb 9.7 GM/dL (10.7-15.3) L 03/01/20 06:30 Hct 28.2 % (32.4-45.2) L 03/01/20 06:30 MCV 86.7 fl (80-96) 03/01/20 06:30 MCH 29.8 pg (25.7-33.7) 03/01/20 06:30 MCHC 34.4 g/dl (32.0-36.0) 03/01/20 06:30 RDW 16.3 % (11.6-15.6) H 03/01/20 06:30 Plt Count 107 K/MM3 (134-434) L 03/01/20 06:30 MPV 7.8 fl (7.5-11.1) 03/01/20 06:30 Absolute Neuts (auto) 3.3 K/mm3 (1.5-8.0) 03/01/20 06:30 Neutrophils % 88.5 % (42.8-82.8) H 03/01/20 06:30 Lymphocytes % 8.7 % (8-40) D 03/01/20 06:30 Monocytes % 2.4 % (3.8-10.2) L 03/01/20 06:30 Eosinophils % 0.0 % (0-4.5) D 03/01/20 06:30 Basophils % 0.4 % (0-2.0) 03/01/20 06:30 Nucleated RBC % 0 % (0-0) 03/01/20 06:30 PT with INR 10.40 SEC (9.7-13.0) 02/29/20 20:30 INR 0.88 (0.83-1.09) 02/29/20 20:30 PTT (Actin FS) 31.4 SECONDS (25.2-36.5) 02/29/20 20:30 Sodium 138 mmol/L (136-145) 03/01/20 06:30 Potassium 4.1 mmol/L (3.5-5.1) 03/01/20 06:30 Chloride 108 mmol/L (98-107) H 03/01/20 06:30 Carbon Dioxide 18 mmol/L (21-32) L 03/01/20 06:30 Anion Gap 12 MMOL/L (8-16) 03/01/20 06:30 BUN 34.0 mg/dL (7-18) H 03/01/20 06:30 Creatinine 4.1 mg/dL (0.55-1.3) H 03/01/20 06:30 Est GFR (CKD-EPI)AfAm 14.93 03/01/20 06:30 Est GFR (CKD-EPI)NonAf 12.88 03/01/20 06:30 POC Glucometer 199 UNITS (80-120) 03/01/20 06:33 Random Glucose 248 mg/dL (74-106) H 03/01/20 06:30 Lactic Acid 0.8 mmol/L (0.4-2.0) 02/29/20 00:00 Calcium 8.0 mg/dL (8.5-10.1) L 03/01/20 06:30 Phosphorus 5.2 mg/dL (2.5-4.9) H 02/29/20 08:13 Magnesium 1.8 mg/dL (1.8-2.4) 03/01/20 06:30 Total Bilirubin 0.4 mg/dL (0.2-1) 03/01/20 06:30 AST 17 U/L (15-37) 03/01/20 06:30 ALT 12 U/L (13-61) L 03/01/20 06:30 Alkaline Phosphatase 102 U/L (45-117) 03/01/20 06:30 Creatine Kinase 64 U/L (26-192) 02/28/20 17:13 Troponin I 0.03 ng/ml (0.00-0.05) 02/28/20 17:13 Total Protein 6.0 g/dl (6.4-8.2) L 03/01/20 06:30 Albumin 2.2 g/dl (3.4-5.0) L 03/01/20 06:30 Lipase 31 U/L (73-393) L 02/28/20 17:13 Serum , Qual Negative 02/28/20 17:31 Stool Occult Blood Negative (NEGATIVE) 03/01/20 06:30 COVID-19 (JAVON) Not detected (Not Detected) 02/29/20 01:00 Active Medications Albuterol Sulfate (Ventolin 0.083% Nebulizer Soln -) 1 amp NEB Q6H PRN PRN Reason: SHORTNESS OF BREATH Albuterol Sulfate (Ventolin Hfa Inhaler -) 2 puff IH Q6H PRN PRN Reason: SHORTNESS OF BREATH Amlodipine Besylate (Norvasc -) 5 mg PO DAILY [facility] Last Admin: 02/29/20 21:41 Dose: 5 mg Documented by: Budesonide/Formoterol Fumarate (Symbicort 80/4.5mcg -) 2 puff IH BID [facility] Last Admin: 02/29/20 22:07 Dose: 2 puff Documented by: Dorzolamide HCl (Trusopt 2%) 1 drop OU BID UMBERTO Last Admin: 02/29/20 22:08 Dose: 1 drop Documented by: Folic Acid (Folic Acid -) 1 mg PO DAILY [facility] Gabapentin (Neurontin -) 300 mg PO BID [facility] Last Admin: 02/29/20 21:41 Dose: 300 mg Documented by: Heparin Sodium (Porcine) (Heparin -) 5,000 unit IVPUSH PRN PRN PRN Reason: Heparin Last Admin: 03/01/20 01:29 Dose: 5,000 unit Documented by: Heparin Sodium (Porcine) 25, (000 unit/ Sodium Chloride) 500 mls @ 20 mls/hr IV TITR UMBERTO; Protocol Last Titration: 03/01/20 01:29 Dose: 1,150 unit/hr, 23 mls/hr Documented by: Sodium Chloride (Normal Saline -) 250 mls @ 3,000 mls/hr IV PRN PRN PRN Reason: Hypotension during Dialysis Stop: 03/01/20 12:44 Sodium Chloride (Normal Saline -) 1,000 mls @ 30 mls/hr IV ASD[facility] Last Admin: 03/01/20 01:43 Dose: Not Given Documented by: Loperamide HCl (Imodium -) 2 mg PO Q6H PRN PRN Reason: DIARRHEA Losartan Potassium (Cozaar -) 50 mg PO DAILY [facility] Montelukast Sodium (Singulair -) 10 mg PO HS [facility] Last Admin: 02/29/20 21:41 Dose: 10 mg Documented by: Pantoprazole Sodium (Protonix -) 40 mg PO DAILY [facility] Paroxetine HCl (Paxil -) 10 mg PO DAILY [facility] Sevelamer Carbonate (Renvela -) 800 mg PO TIDCM [facility] Sodium Bicarbonate (Sodium Bicarbonate -) 650 mg PO TID [facility] Last Admin: 03/01/20 06:54 Dose: 650 mg Documented by: Timolol Maleate (Timoptic 0.5%) 1 drop OU BID [facility] Last Admin: 02/29/20 22:08 Dose: 1 drop Documented by: ASSESSMENT/PLAN: 40 y/o F PMHx ESRD (on HD TuTa), Stage IIIB cervical cancer (On Carboplatin and radiotherapy, last dose 02/02), DM 1, Bipolar Disorder/Depression/Anxiety, asthma admitted for HD and blood transfusion. Patient was recently discharged from [facility] on 02/20 after being found to have nonfunctional permacath requiring exchange and required 1u pRBC during that admission. Patient was admitted on 02/28 for dizziness/headache during HD, Abdominal pain, BP Abnormalities. Initial CT A/P concerning for splenic infarct for which patient was started on Heparin GTT. #Splenic infarct -Found incidently on imaging in the setting of hypercoagulability due to underlying malignancy on active chemo/radiation -Continue Heparin GTT as bridge to Warfarin therapy once INR 2-3 -Follow aPTT, INR -Analgesia -General Surgery evaluation appreciated #Anemia -Likely multifactorial anemia of chronic inflammation in the setting of ESRD while on active chemotherapy, requiring pRBC transfusions in the past -Recent anemia work up reviewed, No current evidence of acute blood loss -Follow hematology as an outpatient #Stage IIIB cervical cancer -On Carboplatin (has completed 6 doses) and radiotherapy -Last dose Carboplatin on 02/28 -Continue close outpatient follow up for radiation -DVT PPx #Thrombocytopenia -Likely due to Active chemotherapy -Can continue Heparin Gtt unless PLTs < 55 Visit type - Emergency Visit Emergency Visit: Yes ED Registration Date: 02/28/20 Care time: The patient presented to the Emergency Department on the above date and was hospitalized for further evaluation of their emergent condition. - New Patient This patient is new to me today: Yes Date on this admission: 03/01/20 - Critical Care Critical Care patient: No - Discharge Referral Referred to [facility] Med P.C.: No ATTENDING PHYSICIAN STATEMENT I saw and evaluated the patient. I reviewed the resident's note and discussed the case with the resident. I agree with the resident's findings and plan as documented. SUBJECTIVE: OBJECTIVE: ASSESSMENT AND PLAN:
[2020-03-01 13:15] LABS: INR 0.97 (0.83-1.09); PROTHROMBIN TIME (PATIENT) 11.4 SEC (9.7-13.0)
[2020-03-01] MEDS: HEPARIN - 25,000 UNIT in SODIUM CHLORIDE 495 ML IV SCH (14:14)
--- NOTE | 2020-03-01 15:19 | PN ---
Teaching Attending Note Name of Resident: Zion Conner ATTENDING PHYSICIAN STATEMENT I saw and evaluated the patient. I reviewed the resident's note and discussed the case with the resident. I agree with the resident's findings and plan as documented. SUBJECTIVE: Seen and examined at bedside. Currently on heparin drip. 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 #Splenic infarct Likely in the setting of hypercoagulable state secondary to malignancy Surgery and hematology on board: We will discuss On heparin drip: bridge to coumadin #Anemia of chronic disease -stable To follow heme-onc as an outpatient #Stage IIIb cervical cancer On carboplatin and radiotherapy Hematology/unk on board: Appreciate recommendations #Thrombocytopenia In the setting of chemotherapy Continue to monitor -per heme ok to continue heparin drip unless plts <55 #ESRD on HD -nephrology on board: appreciate recs
[2020-03-01] MEDS: GABAPENTIN 300 MG CAPSULE PO SCH ×2 (15:30→22:24)
[2020-03-01] MEDS: FOLIC ACID 1 MG TABLET (FP) PO SCH (15:31)
[2020-03-01] MEDS: SEVELAMER CARBONATE 800 MG TAB (FP) PO SCH ×3 (15:31→16:49)
[2020-03-01] MEDS: PARoxetine HCL 10 MG TABLET PO SCH (15:31)
[2020-03-01] MEDS: LOSARTAN POTASSIUM 50 MG TABLET PO SCH (15:31)
[2020-03-01] MEDS: PANTOPRAZOLE 40 MG TABLET PO SCH (15:31)
[2020-03-01] MEDS: BUDESONIDE/FORMETEROL FUMARATE 80/4.5 mcg INHALER IH SCH ×2 (15:32→22:25)
[2020-03-01] MEDS: amLODIPine BESYLATE 5 MG TABLET (FP) PO SCH (15:32)
[2020-03-01] MEDS: DORZOLAMIDE 2% HCL OPHTHALMIC SOLUTION 10 ML BOTTLE OU SCH ×2 (15:33→22:25)
[2020-03-01] MEDS: TIMOLOL 0.5% OPHTHALMIC SOL 5 ML BOTTLE OU SCH ×2 (15:33→22:25)
--- NOTE | 2020-03-01 15:38 | PN ---
Progress Note, Physician History of Present Illness: Seen and examined at the bedside awake and alert currently getting dialysis BP stable, catheter with good flow pt denies any pain, shortness of breath, fever or chills - Current Medication List Current Medications: Active Medications Albuterol Sulfate (Ventolin 0.083% Nebulizer Soln -) 1 amp NEB Q6H PRN PRN Reason: SHORTNESS OF BREATH Albuterol Sulfate (Ventolin Hfa Inhaler -) 2 puff IH Q6H PRN PRN Reason: SHORTNESS OF BREATH Amlodipine Besylate (Norvasc -) 5 mg PO DAILY [facility] Last Admin: 03/01/20 15:32 Dose: 5 mg Documented by: Budesonide/Formoterol Fumarate (Symbicort 80/4.5mcg -) 2 puff IH BID [facility] Last Admin: 03/01/20 15:32 Dose: 2 puff Documented by: Dorzolamide HCl (Trusopt 2%) 1 drop OU BID [facility] Last Admin: 03/01/20 15:33 Dose: 1 drop Documented by: Folic Acid (Folic Acid -) 1 mg PO DAILY [facility] Last Admin: 03/01/20 15:31 Dose: 1 mg Documented by: Gabapentin (Neurontin -) 300 mg PO BID [facility] Last Admin: 03/01/20 15:30 Dose: 300 mg Documented by: Heparin Sodium (Porcine) (Heparin -) 5,000 unit IVPUSH PRN PRN PRN Reason: Heparin Last Admin: 03/01/20 01:29 Dose: 5,000 unit Documented by: Heparin Sodium (Porcine) 25, (000 unit/ Sodium Chloride) 500 mls @ 20 mls/hr IV TITR [facility]; Protocol Last Admin: 03/01/20 14:14 Dose: 1,150 unit/hr, 23 mls/hr Documented by: Sodium Chloride (Normal Saline -) 250 mls @ 3,000 mls/hr IV PRN PRN PRN Reason: Hypotension during Dialysis Stop: 03/01/20 12:44 Sodium Chloride (Normal Saline -) 1,000 mls @ 30 mls/hr IV ASDIR [facility] Last Admin: 03/01/20 01:43 Dose: Not Given Documented by: Loperamide HCl (Imodium -) 2 mg PO Q6H PRN PRN Reason: DIARRHEA Losartan Potassium (Cozaar -) 50 mg PO DAILY [facility] Last Admin: 03/01/20 15:31 Dose: 50 mg Documented by: Montelukast Sodium (Singulair -) 10 mg PO HS [facility] Last Admin: 02/29/20 21:41 Dose: 10 mg Documented by: Pantoprazole Sodium (Protonix -) 40 mg PO DAILY [facility] Last Admin: 03/01/20 15:31 Dose: 40 mg Documented by: Paroxetine HCl (Paxil -) 10 mg PO DAILY [facility] Last Admin: 03/01/20 15:31 Dose: 10 mg Documented by: Sevelamer Carbonate (Renvela -) 800 mg PO TIDCM [facility] Last Admin: 03/01/20 15:32 Dose: Not Given Documented by: Sodium Bicarbonate (Sodium Bicarbonate -) 650 mg PO TID [facility] Last Admin: 03/01/20 15:30 Dose: 650 mg Documented by: Timolol Maleate (Timoptic 0.5%) 1 drop OU BID [facility] Last Admin: 03/01/20 15:33 Dose: 1 drop Documented by: - Objective Vital Signs: Vital Signs Temperature 98.5 F 03/01/20 15:00 Pulse Rate 103 H 03/01/20 15:00 Respiratory Rate 18 03/01/20 15:00 Blood Pressure 168/82 03/01/20 15:00 O2 Sat by Pulse Oximetry (%) 98 03/01/20 09:00 Constitutional: Yes: No Distress, Calm Cardiovascular: Yes: Regular Rate and Rhythm Respiratory: Yes: Regular Gastrointestinal: Yes: Soft. 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 1. Suspected Splenic infarction 2. Diarrhea 3. ESRD on HD 4. Hypertension 5. Cervical cancer 6. Bipolar disorder 7. Anemia in setting of CKD On heparin gtt currently with plan to start oral anticoagulants per Heme/Onc C-diff toxin and antigen negative Blood cultures w/o growth Tolerating dialysis well today. 1.2L daily fluid restriction Continue current antihypertensives Trend H/H, no EKTA given she has cervical cancer Heme/Onc follow up. Thank you Brian Dahl DO
--- NOTE | 2020-03-01 15:48 | PN ---
Teaching Attending Note Name of Resident: Rylie Delaney ATTENDING PHYSICIAN STATEMENT I saw and evaluated the patient. I reviewed the resident's note and discussed the case with the resident. I agree with the resident's findings and plan as documented. 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 She was found to have splenic infarcts and started on heparin gtt without bolus -c/w heparin gtt with plan to bridge to coumadin once PTT becomes therapeutic. INR goal of 2-3 -patient requesting 24 hour urine collection to be ordered as that was requested by her primary [employer] -requesting zofran pRN as well
[2020-03-01] MEDS ORDERED: ACETAMINOPHEN 1000 MG/100 ML VIAL (NON FORMULARY) IVPB ONE (19:02)
--- NOTE | 2020-03-01 20:52 | PN ---
Physical Exam: SUBJECTIVE: Patient seen and examined at bedside. Per RN, patient had heavy menstrual bleeding this afternoon. Heparin gtt stopped per heme/onc. OBJECTIVE: Vital Signs Period Temp Pulse Resp BP Sys/Farah Pulse Ox Last 24 Hr 98.2 F-98.6 F 60-106 18-18 116-171/81-106 98-98 GENERAL: Mild distress due to abdominal pain HEAD: Normal with no signs of trauma. EYES: EOMI Sclera Clear . LUNGS: Decreased breath sounds. HEART: RRR No MRG S1S2 ABDOMEN: Suprapubic tenderness. No guarding/Rigidity/rebound. EXTREMITIES: No CCE Laboratory Results - last 24 hr 02/29/20 02/29/20 02/29/20 01:00 19:30 20:30 WBC RBC Hgb Hct MCV MCH MCHC RDW Plt Count MPV Absolute Neuts (auto) Neutrophils % Lymphocytes % Monocytes % Eosinophils % Basophils % Nucleated RBC % PT with INR 10.40 INR 0.88 PTT (Actin FS) 31.4 Sodium Potassium Chloride Carbon Dioxide Anion Gap BUN Creatinine Est GFR (CKD-EPI)AfAm Est GFR (CKD-EPI)NonAf POC Glucometer Random Glucose Calcium Magnesium Total Bilirubin AST ALT Alkaline Phosphatase Total Protein Albumin Stool Occult Blood Cancelled COVID-19 (JAVON) Not detected 03/01/20 03/01/20 03/01/20 06:30 06:30 06:30 WBC 3.8 L RBC 3.25 L Hgb 9.7 L Hct 28.2 L MCV 86.7 MCH 29.8 MCHC 34.4 RDW 16.3 H Plt Count 107 L MPV 7.8 Absolute Neuts (auto) 3.3 Neutrophils % 88.5 H Lymphocytes % 8.7 D Monocytes % 2.4 L Eosinophils % 0.0 D Basophils % 0.4 Nucleated RBC % 0 PT with INR INR PTT (Actin FS) Sodium 138 Potassium 4.1 Chloride 108 H Carbon Dioxide 18 L Anion Gap 12 BUN 34.0 H Creatinine 4.1 H Est GFR (CKD-EPI)AfAm 14.93 Est GFR (CKD-EPI)NonAf 12.88 POC Glucometer Random Glucose 248 H Calcium 8.0 L Magnesium 1.8 Total Bilirubin 0.4 AST 17 ALT 12 L Alkaline Phosphatase 102 Total Protein 6.0 L Albumin 2.2 L Stool Occult Blood Negative COVID-19 (JAVON) 03/01/20 03/01/20 03/01/20 06:33 12:00 18:07 WBC RBC Hgb Hct MCV MCH MCHC RDW Plt Count MPV Absolute Neuts (auto) Neutrophils % Lymphocytes % Monocytes % Eosinophils % Basophils % Nucleated RBC % PT with INR 11.40 INR 0.97 PTT (Actin FS) 28.8 Sodium Potassium Chloride Carbon Dioxide Anion Gap BUN Creatinine Est GFR (CKD-EPI)AfAm Est GFR (CKD-EPI)NonAf POC Glucometer 199 Random Glucose Calcium Magnesium Total Bilirubin AST ALT Alkaline Phosphatase Total Protein Albumin Stool Occult Blood COVID-19 (JAVON) Active Medications Generic Name Dose Route Start Last Admin Trade Name Freq PRN Reason Stop Dose Admin Albuterol Sulfate 1 amp 02/29/20 17:35 Ventolin 0.083% Nebulizer Soln - NEB Q6H PRN SHORTNESS OF BREATH Albuterol Sulfate 2 puff 02/29/20 18:02 Ventolin Hfa Inhaler - IH Q6H PRN SHORTNESS OF BREATH Amlodipine Besylate 5 mg 02/29/20 21:15 03/01/20 15:32 Norvasc - PO 5 mg DAILY [facility] Administration Budesonide/Formoterol Fumarate 2 puff 02/29/20 22:00 03/01/20 15:32 Symbicort 80/4.5mcg - IH 2 puff BID [facility] Administration Dorzolamide HCl 1 drop 02/29/20 22:00 03/01/20 15:33 Trusopt 2% OU 1 drop BID [facility] Administration Folic Acid 1 mg 03/01/20 10:00 03/01/20 15:31 Folic Acid - PO 1 mg DAILY [facility] Administration Gabapentin 300 mg 02/29/20 22:00 03/01/20 15:30 Neurontin - PO 300 mg BID [facility] Administration Sodium Chloride 250 mls @ 3,000 mls/hr 02/29/20 12:44 Normal Saline - IV 03/01/20 12:44 PRN PRN Hypotension during Dialysis Sodium Chloride 1,000 mls @ 30 mls/hr 02/29/20 20:30 03/01/20 01:43 Normal Saline - IV Not Given ASDIR [facility] Loperamide HCl 2 mg 02/29/20 20:08 Imodium - PO Q6H PRN DIARRHEA Losartan Potassium 50 mg 03/01/20 10:00 03/01/20 15:31 Cozaar - PO 50 mg DAILY [facility] Administration Montelukast Sodium 10 mg 02/29/20 22:00 02/29/20 21:41 Singulair - PO 10 mg HS [facility] Administration Pantoprazole Sodium 40 mg 03/01/20 10:00 03/01/20 15:31 Protonix - PO 40 mg DAILY [facility] Administration Paroxetine HCl 10 mg 03/01/20 10:00 03/01/20 15:31 Paxil - PO 10 mg DAILY [facility] Administration Sevelamer Carbonate 800 mg 03/01/20 08:00 03/01/20 16:49 Renvela - PO 800 mg TIDCM [facility] Administration Sodium Bicarbonate 650 mg 02/29/20 22:00 03/01/20 15:30 Sodium Bicarbonate - PO 650 mg TID [facility] Administration Timolol Maleate 1 drop 02/29/20 22:00 03/01/20 15:33 Timoptic 0.5% OU 1 drop BID [facility] Administration ASSESSMENT/PLAN: 40-year-old female past medical history of ESRD, stage IIIb cervical cancer on carboplatin and radiotherapy, DM 1, bipolar/depression/anxiety, asthma admitted From hemodialysis for labile blood pressure and diarrhea, 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 #Splenic infarct Heparin gtt stopped in light of heavy menstrual bleeding. Heme on board. Appreciate recs. Follow-up ultrasound further supports. Per radiology MRI may be useful #Anemia of chronic disease -stable To follow heme-onc as an outpatient #Stage IIIb cervical cancer On carboplatin and radiotherapy. 6th dose carboplatin. Hematology/unk on board: Appreciate recommendations #Thrombocytopenia In the setting of chemotherapy Continue to monitor #ESRD on HD -nephrology on board: appreciate recs Visit type - Emergency Visit Emergency Visit: Yes ED Registration Date: 02/28/20 Care time: The patient presented to the Emergency Department on the above date and was hospitalized for further evaluation of their emergent condition. - New Patient This patient is new to me today: No - Critical Care Critical Care patient: No - Discharge Referral Referred to [facility] Med P.C.: No ATTENDING PHYSICIAN STATEMENT I saw and evaluated the patient. I reviewed the resident's note and discussed the case with the resident. I agree with the resident's findings and plan as documented. SUBJECTIVE: OBJECTIVE: ASSESSMENT AND PLAN:
[2020-03-01] MEDS: MONTELUKAST NA 10 MG TABLET PO SCH (22:24)
[2020-03-02] MEDS: SODIUM BICARBONATE 650 MG TABLET PO SCH ×2 (06:23→14:38)
[2020-03-02] MEDS: SEVELAMER CARBONATE 800 MG TAB (FP) PO SCH ×3 (08:38→16:51)
[2020-03-02] MEDS ORDERED: ALBUTEROL SO4 0.083% IH SOL 2.5 MG/3 ML VIAL.NEB. NEB PRN (08:52)
[2020-03-02] MEDS: PARoxetine HCL 10 MG TABLET PO SCH (09:37)
[2020-03-02] MEDS: PANTOPRAZOLE 40 MG TABLET PO SCH (09:37)
[2020-03-02] MEDS: FOLIC ACID 1 MG TABLET (FP) PO SCH (09:37)
[2020-03-02] MEDS: GABAPENTIN 300 MG CAPSULE PO SCH ×2 (09:38→21:33)
[2020-03-02] MEDS: BUDESONIDE/FORMETEROL FUMARATE 80/4.5 mcg INHALER IH SCH ×2 (09:42→21:34)
[2020-03-02] MEDS: DORZOLAMIDE 2% HCL OPHTHALMIC SOLUTION 10 ML BOTTLE OU SCH ×2 (09:43→21:34)
[2020-03-02] MEDS: TIMOLOL 0.5% OPHTHALMIC SOL 5 ML BOTTLE OU SCH ×2 (09:43→21:34)
[2020-03-02] MEDS ORDERED: oxyCODONE HCL 5 MG TABLET PO PRN (10:44)
--- NOTE | 2020-03-02 11:37 | PN ---
Physical Exam: SUBJECTIVE: Patient seen and examined this AM. OBJECTIVE: Vital Signs Period Temp Pulse Resp BP Sys/Farah Pulse Ox Last 24 Hr 98.2 F-99 F 60-103 18-18 115-168/59-106 97-100 GENERAL: A&Ox3, NAD HEAD: NCAT EYES: PERRL, EOMI ENT: Moist mucous membranes. NECK: Supple, No JVD CHEST: Right HD access, Left Permacath LUNGS: Diminished breath sounds at the bases, No wheezes. HEART: Regular rate and rhythm, normal S1 and S2 without murmur ABDOMEN: Obese, Soft, nontender, not distended, + bowel sounds, no guarding, no rebound EXTREMITIES: No peripheral edema. NEUROLOGICAL: Cranial nerves II-XII intact. Normal speech. SKIN: Warm, dry Laboratory Last Values WBC Cancelled 03/02/20 07:45 Corrected WBC (auto) Cancelled 03/02/20 07:45 RBC Cancelled 03/02/20 07:45 Hgb Cancelled 03/02/20 07:45 Hct Cancelled 03/02/20 07:45 MCV Cancelled 03/02/20 07:45 MCH Cancelled 03/02/20 07:45 MCHC Cancelled 03/02/20 07:45 RDW Cancelled 03/02/20 07:45 Plt Count Cancelled 03/02/20 07:45 MPV Cancelled 03/02/20 07:45 Absolute Neuts (auto) 3.3 K/mm3 (1.5-8.0) 03/01/20 06:30 Neutrophils % 88.5 % (42.8-82.8) H 03/01/20 06:30 Lymphocytes % 8.7 % (8-40) D 03/01/20 06:30 Monocytes % 2.4 % (3.8-10.2) L 03/01/20 06:30 Eosinophils % 0.0 % (0-4.5) D 03/01/20 06:30 Basophils % 0.4 % (0-2.0) 03/01/20 06:30 Nucleated RBC % 0 % (0-0) 03/01/20 06:30 Manual Slide Review Cancelled 03/02/20 07:45 Platelet Comment Cancelled 03/02/20 07:45 PT with INR 11.40 SEC (9.7-13.0) 03/01/20 12:00 INR 0.97 (0.83-1.09) 03/01/20 12:00 PTT (Actin FS) 26.6 SECONDS (25.2-36.5) 03/02/20 09:15 Sodium Cancelled 03/02/20 07:45 Potassium Cancelled 03/02/20 07:45 Chloride Cancelled 03/02/20 07:45 Carbon Dioxide Cancelled 03/02/20 07:45 Anion Gap Cancelled 03/02/20 07:45 BUN Cancelled 03/02/20 07:45 Creatinine Cancelled 03/02/20 07:45 Est GFR (CKD-EPI)AfAm Cancelled 03/02/20 07:45 Est GFR (CKD-EPI)NonAf Cancelled 03/02/20 07:45 POC Glucometer 210 UNITS (80-120) 03/02/20 07:56 Random Glucose Cancelled 03/02/20 07:45 Lactic Acid 0.8 mmol/L (0.4-2.0) 02/29/20 00:00 Calcium Cancelled 03/02/20 07:45 Phosphorus Cancelled 03/02/20 07:45 Magnesium Cancelled 03/02/20 07:45 Total Bilirubin 0.4 mg/dL (0.2-1) 03/01/20 06:30 AST 17 U/L (15-37) 03/01/20 06:30 ALT 12 U/L (13-61) L 03/01/20 06:30 Alkaline Phosphatase 102 U/L (45-117) 03/01/20 06:30 Creatine Kinase 64 U/L (26-192) 02/28/20 17:13 Troponin I 0.03 ng/ml (0.00-0.05) 02/28/20 17:13 Total Protein 6.0 g/dl (6.4-8.2) L 03/01/20 06:30 Albumin 2.2 g/dl (3.4-5.0) L 03/01/20 06:30 Lipase 31 U/L (73-393) L 02/28/20 17:13 Serum , Qual Negative 02/28/20 17:31 Stool Occult Blood Negative (NEGATIVE) 03/01/20 06:30 COVID-19 (JAVON) Not detected (Not Detected) 02/29/20 01:00 ASSESSMENT/PLAN: 40 y/o F PMHx ESRD (on HD TuThSa), Stage IIIB cervical cancer (On Carboplatin and radiotherapy, last dose 02/02), DM 1, Bipolar Disorder/Depression/Anxiety, asthma, recently discharged from [facility] on 02/20 after being found to have nonfunctional permacath requiring exchange and required 1u pRBC during that admission, admitted this admission for dizziness/headache during HD, Abdominal pain, BP Abnormalities. Initial CT A/P concerning for splenic infarct for which patient was started on Heparin GTT but stopped due to bleeding. #Splenic infarct -Found incidently on imaging in the setting of hypercoagulability due to underlying malignancy on active chemo/radiation -Hold Heparin GTT, Repeat CBC this evening and transfuse to keep Hgb > 7.0 -Analgesia -General Surgery evaluation appreciated #Anemia -Likely multifactorial anemia of chronic inflammation in the setting of ESRD while on active chemotherapy, requiring pRBC transfusions in the past -Recent anemia work up reviewed, No current evidence of acute blood loss -Follow hematology as an outpatient #Stage IIIB cervical cancer -On Carboplatin (has completed 6 doses) and radiotherapy -Last dose Carboplatin on 02/28 -Continue close outpatient follow up for radiation -DVT PPx #Thrombocytopenia -Likely due to Active chemotherapy -Can continue Heparin Gtt unless PLTs < 55 Visit type - Emergency Visit Emergency Visit: Yes ED Registration Date: 02/28/20 Care time: The patient presented to the Emergency Department on the above date and was hospitalized for further evaluation of their emergent condition. - New Patient This patient is new to me today: Yes Date on this admission: 03/05/20 - Critical Care Critical Care patient: No - Discharge Referral Referred to [facility] Med P.C.: No ATTENDING PHYSICIAN STATEMENT I saw and evaluated the patient. I reviewed the resident's note and discussed the case with the resident. I agree with the resident's findings and plan as documented. SUBJECTIVE: OBJECTIVE: ASSESSMENT AND PLAN:
[2020-03-02 12:17] LABS: HEMATOCRIT 22.7 % (32.4-45.2); HEMOGLOBIN 7.9 GM/dL (10.7-15.3); MCH 30.3 pg (25.7-33.7); MCHC 34.7 g/dl (32.0-36.0); MEAN CELL VOLUME 87.3 fl (80-96); MEAN PLT VOLUME 7.9 fl (7.5-11.1); PLATELET COUNT 79 K/MM3 (134-434); RBC 2.61 M/mm3 (3.60-5.2); RDW 16.3 % (11.6-15.6); WHITE BLOOD COUNT 3.4 K/mm3 (4.0-10.0)
[2020-03-02 12:44] LABS: BILIRUBIN,TOTAL 0.4 mg/dL (0.2-1); BLOOD UREA NITROGEN 23.5 mg/dL (7-18); CREATININE 3.6 mg/dL (0.55-1.3); POTASSIUM 3.2 mmol/L (3.5-5.1); TOT PROT 4.9 g/dl (6.4-8.2)
[2020-03-02 13:46] LABS: CALCIUM 6.8 mg/dL (8.5-10.1)
[2020-03-02] MEDS: LOSARTAN POTASSIUM 50 MG TABLET PO SCH (13:52)
[2020-03-02] MEDS: amLODIPine BESYLATE 5 MG TABLET (FP) PO SCH (13:52)
[2020-03-02] MEDS ORDERED: POTASSIUM CHLORIDE TABS 20 MEQ TABLET.ER (FP) PO ONE (14:00)
--- NOTE | 2020-03-02 14:46 | PN ---
Teaching Attending Note Name of Resident: Zion Conner ATTENDING PHYSICIAN STATEMENT I saw and evaluated the patient. I reviewed the resident's note and discussed the case with the resident. I agree with the resident's findings and plan as documented. SUBJECTIVE: Seen and examined at bedside. Heparin drip discontinued yesterday evening as pat [place] started having heavy menstrual bleeding. 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 #Splenic infarct Likely in the setting of hypercoagulable state secondary to malignancy Surgery and hematology on board: We will discuss Was on heparin drip with plan to switch to Coumadin. Was discontinued after patient developed menorrhagia #menorrahgia -in settign of heparin drip -AC discontinued -trend cbc -transfuse to hgb>7 #acute blood loss anemia on top of anemia of chronic disease -trend cbc -transfuse to hgb>7 #Stage IIIb cervical cancer On carboplatin and radiotherapy Hematology/unk on board: Appreciate recommendations #Thrombocytopenia In the setting of chemotherapy Continue to monitor #ESRD on HD -nephrology on board: appreciate recs
--- NOTE | 2020-03-02 15:29 | PN ---
Teaching Attending Note Name of Resident: Rylie Delaney ATTENDING PHYSICIAN STATEMENT I saw and evaluated the patient. I reviewed the resident's note and discussed the case with the resident. I agree with the resident's findings and plan as documented. 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 She was started on heparin gtt without bolus however she started to have significant vaginal bleeding on heparin gtt. Hb this am 7.9 by peripheral stick. VSS. Would continue to hold heparin gtt as she is still having mild bleeding. Would recheck CBC this evening. Transfuse if Hb <7.
[2020-03-02] MEDS: INSULIN SLIDING SCALE (NOVOLOG) 1 VIAL SQ SCH ×2 (16:31→21:33)
--- NOTE | 2020-03-02 16:32 | PN ---
Progress Note, Physician History of Present Illness: Seen and examined at the bedside awake and alert pt denies any pain, shortness of breath, fever or chills had vaginal bleeding last night heparin gtt was held - Current Medication List Current Medications: Active Medications Albuterol Sulfate (Ventolin 0.083% Nebulizer Soln -) 1 amp NEB Q6H PRN PRN Reason: SHORTNESS OF BREATH Amlodipine Besylate (Norvasc -) 5 mg PO DAILY [facility] Last Admin: 03/02/20 13:52 Dose: Not Given Documented by: Budesonide/Formoterol Fumarate (Symbicort 80/4.5mcg -) 2 puff IH BID [facility] Last Admin: 03/02/20 09:42 Dose: 2 puff Documented by: Dorzolamide HCl (Trusopt 2%) 1 drop OU BID [facility] Last Admin: 03/02/20 09:43 Dose: 1 drop Documented by: Folic Acid (Folic Acid -) 1 mg PO DAILY [facility] Last Admin: 03/02/20 09:37 Dose: 1 mg Documented by: Gabapentin (Neurontin -) 300 mg PO BID [facility] Last Admin: 03/02/20 09:38 Dose: 300 mg Documented by: Sodium Chloride (Normal Saline -) 250 mls @ 3,000 mls/hr IV PRN PRN PRN Reason: Hypotension during Dialysis Stop: 03/01/20 12:44 Sodium Chloride (Normal Saline -) 1,000 mls @ 30 mls/hr IV ASDIR [facility] Last Admin: 03/01/20 01:43 Dose: Not Given Documented by: Insulin Aspart (Novolog Vial Sliding Scale -) 1 vial SQ ACHS [facility]; Protocol Loperamide HCl (Imodium -) 2 mg PO Q6H PRN PRN Reason: DIARRHEA Losartan Potassium (Cozaar -) 50 mg PO DAILY [facility] Last Admin: 03/02/20 13:52 Dose: Not Given Documented by: Montelukast Sodium (Singulair -) 10 mg PO HS [facility] Last Admin: 03/01/20 22:24 Dose: 10 mg Documented by: Oxycodone HCl (Roxicodone -) 5 mg PO ONCE PRN PRN Reason: PAIN LEVEL 7 - 10 Stop: 03/03/20 10:43 Last Admin: 03/02/20 13:08 Dose: 5 mg Documented by: Pantoprazole Sodium (Protonix -) 40 mg PO DAILY [facility] Last Admin: 03/02/20 09:37 Dose: 40 mg Documented by: Paroxetine HCl (Paxil -) 10 mg PO DAILY [facility] Last Admin: 03/02/20 09:37 Dose: 10 mg Documented by: Sevelamer Carbonate (Renvela -) 1,600 mg PO TIDCM [facility] Timolol Maleate (Timoptic 0.5%) 1 drop OU BID [facility] Last Admin: 03/02/20 09:43 Dose: 1 drop Documented by: - Objective Vital Signs: Vital Signs Temperature 98.7 F 03/02/20 13:52 Pulse Rate 87 03/02/20 13:52 Respiratory Rate 18 03/02/20 13:52 Blood Pressure 103/60 03/02/20 13:52 O2 Sat by Pulse Oximetry (%) 100 03/02/20 09:31 Constitutional: Yes: No Distress HENT: Yes: Atraumatic Neck: Yes: Supple Cardiovascular: Yes: Regular Rate and Rhythm Respiratory: Yes: Regular, CTA Bilaterally Gastrointestinal: Yes: Soft Extremities: No: Cyanosis Edema: No Labs: CBC, BMP 03/02/20 11:30 03/02/20 11:30 INR, PTT INR 0.97 (0.83-1.09) 03/01/20 12:00 Assessment/Plan 40 year old woman with history of 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 1. Suspected Splenic infarction 2. Diarrhea 3. ESRD on HD 4. Hypertension 5. Cervical cancer 6. Bipolar disorder 7. Anemia in setting of CKD off heparin due to vaginal bleed and subsequent drop in H/H Trend CBC, transfuse for Hgb < 7 off dialysis paln for dialysis tomorrow with PRBC transfusion if Hgb < 8 C-diff toxin and antigen negative Blood cultures w/o growth 1.2L daily fluid restriction Continue current antihypertensives Trend H/H, no EKTA given she has cervical cancer Heme/Onc follow up. Thank you Brian Dahl DO
[2020-03-02] MEDS ORDERED: SODIUM CHLORIDE 250 ML IV PRN (16:39)
--- NOTE | 2020-03-02 18:31 | PN ---
Physical Exam: SUBJECTIVE: Patient seen and examined at bedside. Endorses suprapubic pain. OBJECTIVE: Vital Signs Period Temp Pulse Resp BP Sys/Farah Pulse Ox Last 24 Hr 97.9 F-99 F 79-98 18-18 103-124/59-87 97-100 GENERAL: No acute distress HEAD: Normal with no signs of trauma. EYES: EOMI Sclera Clear . LUNGS: Decreased breath sounds. HEART: RRR No MRG S1S2 ABDOMEN: Suprapubic tenderness. No guarding/Rigidity/rebound. EXTREMITIES: No CCE Laboratory Results - last 24 hr 02/29/20 03/01/20 03/01/20 19:30 18:07 22:22 WBC Corrected WBC (auto) RBC Hgb Hct MCV MCH MCHC RDW Plt Count MPV Manual Slide Review Platelet Comment PTT (Actin FS) 28.8 Sodium Potassium Chloride Carbon Dioxide Anion Gap BUN Creatinine Est GFR (CKD-EPI)AfAm Est GFR (CKD-EPI)NonAf POC Glucometer 239 Random Glucose Calcium Phosphorus Magnesium Total Bilirubin AST ALT Alkaline Phosphatase Total Protein Albumin Stool O & P Wet [place] P Permanent Slide Final report Blood Type Antibody Screen 03/02/20 03/02/20 03/02/20 06:18 07:45 07:45 WBC Cancelled Corrected WBC (auto) Cancelled RBC Cancelled Hgb Cancelled Hct Cancelled MCV Cancelled MCH Cancelled MCHC Cancelled RDW Cancelled Plt Count Cancelled MPV Cancelled Manual Slide Review Cancelled Platelet Comment Cancelled PTT (Actin FS) Sodium Cancelled Potassium Cancelled Chloride Cancelled Carbon Dioxide Cancelled Anion Gap Cancelled BUN Cancelled Creatinine Cancelled Est GFR (CKD-EPI)AfAm Cancelled Est GFR (CKD-EPI)NonAf Cancelled POC Glucometer 199 Random Glucose Cancelled Calcium Cancelled Phosphorus Cancelled Magnesium Cancelled Total Bilirubin AST ALT Alkaline Phosphatase Total Protein Albumin Stool O & P Wet [place] P Permanent Slide Blood Type Antibody Screen 03/02/20 03/02/20 03/02/20 07:56 09:15 11:30 WBC 3.4 L Corrected WBC (auto) RBC 2.61 L Hgb 7.9 L Hct 22.7 L D MCV 87.3 MCH 30.3 MCHC 34.7 RDW 16.3 H Plt Count 79 L D MPV 7.9 Manual Slide Review Platelet Comment PTT (Actin FS) 26.6 Sodium Potassium Chloride Carbon Dioxide Anion Gap BUN Creatinine Est GFR (CKD-EPI)AfAm Est GFR (CKD-EPI)NonAf POC Glucometer 210 Random Glucose Calcium Phosphorus Magnesium Total Bilirubin AST ALT Alkaline Phosphatase Total Protein Albumin Stool O & P Wet [place] P Permanent Slide Blood Type Antibody Screen 03/02/20 03/02/20 03/02/20 11:30 11:30 12:08 WBC Corrected WBC (auto) RBC Hgb Hct MCV MCH MCHC RDW Plt Count MPV Manual Slide Review Platelet Comment PTT (Actin FS) Sodium 139 Potassium 3.2 L Chloride 103 Carbon Dioxide 29 Anion Gap 6 L BUN 23.5 H Creatinine 3.6 H Est GFR (CKD-EPI)AfAm 17.47 Est GFR (CKD-EPI)NonAf 15.07 POC Glucometer 213 Random Glucose 233 H Calcium 6.8 L* Phosphorus Magnesium Total Bilirubin 0.4 AST 14 L ALT 15 Alkaline Phosphatase 93 Total Protein 4.9 L Albumin 2.0 L Stool O & P Wet [place] P Permanent Slide Blood Type O POSITIVE Antibody Screen Negative 03/02/20 16:30 WBC Corrected WBC (auto) RBC Hgb Hct MCV MCH MCHC RDW Plt Count MPV Manual Slide Review Platelet Comment PTT (Actin FS) Sodium Potassium Chloride Carbon Dioxide Anion Gap BUN Creatinine Est GFR (CKD-EPI)AfAm Est GFR (CKD-EPI)NonAf POC Glucometer 238 Random Glucose Calcium Phosphorus Magnesium Total Bilirubin AST ALT Alkaline Phosphatase Total Protein Albumin Stool O & P Wet [place] P Permanent Slide Blood Type Antibody Screen Active Medications Generic Name Dose Route Start Last Admin Trade Name Freq PRN Reason Stop Dose Admin Albuterol Sulfate 1 amp 03/02/20 08:52 Ventolin 0.083% Nebulizer Soln - NEB Q6H PRN SHORTNESS OF BREATH Amlodipine Besylate 5 mg 02/29/20 21:15 03/02/20 13:52 Norvasc - PO Not Given DAILY [facility]MBERTO Budesonide/Formoterol Fumarate 2 puff 02/29/20 22:00 03/02/20 09:42 Symbicort 80/4.5mcg - IH 2 puff BID [facility]MBERTO Administration Dorzolamide HCl 1 drop 02/29/20 22:00 03/02/20 09:43 Trusopt 2% OU 1 drop BID [facility]MBERTO Administration Folic Acid 1 mg 03/01/20 10:00 03/02/20 09:37 Folic Acid - PO 1 mg DAILY [facility]O Administration Gabapentin 300 mg 02/29/20 22:00 03/02/20 09:38 Neurontin - PO 300 mg BID U[facility]ERTO Administration Sodium Chloride 1,000 mls @ 30 mls/hr 02/29/20 20:30 03/01/20 01:43 Normal Saline - IV Not Given ASDIR [facility]ERTO Sodium Chloride 250 mls @ 3,000 mls/hr 03/02/20 16:39 Normal Saline - IV 03/03/20 16:40 PRN PRN Hypotension during Dialysis Insulin Aspart 1 vial 03/02/20 16:30 03/02/20 16:31 Novolog Vial Sliding Scale - SQ 4 units ACHS UMBERTO Administration Protocol Loperamide HCl 2 mg 02/29/20 20:08 Imodium - PO Q6H PRN DIARRHEA Losartan Potassium 50 mg 03/01/20 10:00 03/02/20 13:52 Cozaar - PO Not Given DAILY UMBERTO Montelukast Sodium 10 mg 02/29/20 22:00 03/01/20 22:24 Singulair - PO 10 mg HS [facility]ERTO Administration Oxycodone HCl 5 mg 03/02/20 10:44 03/02/20 13:08 Roxicodone - PO 03/03/20 10:43 5 mg ONCE PRN Administration PAIN LEVEL 7 - 10 Pantoprazole Sodium 40 mg 03/01/20 10:00 03/02/20 09:37 Protonix - PO 40 mg DAILY [facility] Administration Paroxetine HCl 10 mg 03/01/20 10:00 03/02/20 09:37 Paxil - PO 10 mg DAILY [facility]O Administration Sevelamer Carbonate 1,600 mg 03/02/20 16:29 03/02/20 16:51 Renvela - PO 1,600 mg TIDCM [facility]ERTO Administration Timolol Maleate 1 drop 02/29/20 22:00 03/02/20 09:43 Timoptic 0.5% OU 1 drop BID UMBRETO Administration ASSESSMENT/PLAN: 40-year-old female past medical history of ESRD, stage IIIb cervical cancer on carboplatin and radiotherapy, DM 1, bipolar/depression/anxiety, asthma admitted From hemodialysis for labile blood pressure and diarrhea, 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 #Splenic infarct Heparin gtt stopped in light of heavy menstrual bleeding. Heme on board. Appreciate recs. #Acute blood loss anemia with concomitant AOC -Trend CBC, transfuse for Hgb < 7 off dialysis paln for dialysis tomorrow with PRBC transfusion if Hgb < 8 To follow heme-onc as an outpatient #Stage IIIb cervical cancer On carboplatin and radiotherapy. 6th dose carboplatin. Hematology/unk on board: Appreciate recommendations #Thrombocytopenia In the setting of chemotherapy Continue to monitor #ESRD on HD -nephrology on board: appreciate recs Visit type - Emergency Visit Emergency Visit: Yes ED Registration Date: 02/28/20 Care time: The patient presented to the Emergency Department on the above date and was hospitalized for further evaluation of their emergent condition. - New Patient This patient is new to me today: No - Critical Care Critical Care patient: No - Discharge Referral Referred to [facility] Med P.C.: No ATTENDING PHYSICIAN STATEMENT I saw and evaluated the patient. I reviewed the resident's note and discussed the case with the resident. I agree with the resident's findings and plan as documented. SUBJECTIVE: OBJECTIVE: ASSESSMENT AND PLAN:
[2020-03-02 18:38] LABS: BASO % 0.9 % (0-2.0); EOS % 1.5 % (0-4.5); HEMATOCRIT 25.7 % (32.4-45.2); HEMOGLOBIN 8.8 GM/dL (10.7-15.3); LYMPH % 13.5 % (8-40); MCH 29.9 pg (25.7-33.7); MCHC 34.2 g/dl (32.0-36.0); MEAN CELL VOLUME 87.5 fl (80-96); MEAN PLT VOLUME 7.8 fl (7.5-11.1); MONO % 8.6 % (3.8-10.2); NEUT % 75.5 % (42.8-82.8); PLATELET COUNT 95 K/MM3 (134-434); RBC 2.94 M/mm3 (3.60-5.2); RDW 16.9 % (11.6-15.6); WHITE BLOOD COUNT 4.5 K/mm3 (4.0-10.0)
[2020-03-02] MEDS ORDERED: INSULIN (NOVOLOG) ASPART 100 UNITS/ML 10ML VIAL ONE (21:28)
[2020-03-02] MEDS: MONTELUKAST NA 10 MG TABLET PO SCH (21:32)
[2020-03-03] MEDS: SODIUM CHLORIDE 1,000 ML IV SCH ×3 (00:18→22:11)
[2020-03-03 06:30] LABS: EOS % 1.5 % (0-4.5); HEMOGLOBIN 7.7 GM/dL (10.7-15.3); LYMPH % 9.9 % (8-40); MCH 29.2 pg (25.7-33.7); MCHC 33.5 g/dl (32.0-36.0); MEAN CELL VOLUME 87.2 fl (80-96); MEAN PLT VOLUME 7.6 fl (7.5-11.1); MONO % 10.7 % (3.8-10.2); NEUT % 76.9 % (42.8-82.8); PLATELET COUNT 81 K/MM3 (134-434); RBC 2.63 M/mm3 (3.60-5.2); RDW 16.9 % (11.6-15.6); WHITE BLOOD COUNT 3.5 K/mm3 (4.0-10.0)
[2020-03-03] MEDS: INSULIN SLIDING SCALE (NOVOLOG) 1 VIAL SQ SCH ×4 (06:43→21:29)
[2020-03-03 07:01] LABS: ALBUMIN 1.9 g/dl (3.4-5.0); BILIRUBIN,TOTAL 0.2 mg/dL (0.2-1); BLOOD UREA NITROGEN 31.7 mg/dL (7-18); CREATININE 4.3 mg/dL (0.55-1.3); MAGNESIUM 1.5 mg/dL (1.8-2.4); PHOSPHOROUS 4.5 mg/dL (2.5-4.9); POTASSIUM 3.3 mmol/L (3.5-5.1); TOT PROT 4.8 g/dl (6.4-8.2)
[2020-03-03] MEDS ORDERED: oxyCODONE HCL 5 MG TABLET PO PRN (09:22)
[2020-03-03] MEDS ORDERED: POLYETHYLENE GLYCOL 3350 119 GM BTL PO PRN (09:23)
[2020-03-03] MEDS ORDERED: DOCUSATE SODIUM 100 MG CAPSULE (FP) PO PRN (09:23)
[2020-03-03] MEDS: PANTOPRAZOLE 40 MG TABLET PO SCH (10:00)
[2020-03-03] MEDS: LOSARTAN POTASSIUM 50 MG TABLET PO SCH (10:01)
[2020-03-03] MEDS: amLODIPine BESYLATE 5 MG TABLET (FP) PO SCH (10:01)
[2020-03-03] MEDS: GABAPENTIN 300 MG CAPSULE PO SCH ×2 (10:01→21:24)
[2020-03-03] MEDS: FOLIC ACID 1 MG TABLET (FP) PO SCH (10:01)
[2020-03-03] MEDS: PARoxetine HCL 10 MG TABLET PO SCH (10:01)
[2020-03-03] MEDS: BUDESONIDE/FORMETEROL FUMARATE 80/4.5 mcg INHALER IH SCH ×2 (10:02→21:27)
[2020-03-03] MEDS: DORZOLAMIDE 2% HCL OPHTHALMIC SOLUTION 10 ML BOTTLE OU SCH ×2 (10:02→21:27)
[2020-03-03] MEDS: SEVELAMER CARBONATE 800 MG TAB (FP) PO SCH ×3 (10:02→16:36)
[2020-03-03] MEDS: TIMOLOL 0.5% OPHTHALMIC SOL 5 ML BOTTLE OU SCH ×2 (10:02→21:27)
--- NOTE | 2020-03-03 11:14 | PN ---
Progress Note (short form) - Note Progress Note: S: Bleeding noted from patient's port yesterday with slight dislodgement. Bleeding has ceased from port and fixed by night staff. Patient reports menorrhagia is still present, however lightening. Patient otherwise has no complaints. Receiving regularly schedule dialysis today. Vital Signs Temperature 98.2 F 03/03/20 06:00 Pulse Rate 81 03/03/20 06:00 Respiratory Rate 18 03/03/20 09:00 Blood Pressure 122/70 03/03/20 06:00 O2 Sat by Pulse Oximetry (%) 94 L 03/03/20 09:00 PE: Gen: NAD, awake, alert, oriented HEENT: Nc/AT, [place], sclera anicteric, no conjunctival pallor, MMM CHEST: R sided permacath noted C/D/I, L sided chemoport noted without any drainage or bleeding, no hematoma noted LUNG: CTA b/l without wheezes or rales CARD: RRR no murmurs ABD: soft, NT/ND, + BS ExT: No edema, pulses strong b/l CBC, BMP 03/03/20 06:06 03/03/20 06:06 Active Medications Albuterol Sulfate (Ventolin 0.083% Nebulizer Soln -) 1 amp NEB Q6H PRN PRN Reason: SHORTNESS OF BREATH Amlodipine Besylate (Norvasc -) 5 mg PO DAILY [facility] Last Admin: 03/03/20 10:01 Dose: 5 mg Documented by: Budesonide/Formoterol Fumarate (Symbicort 80/4.5mcg -) 2 puff IH BID [facility] Last Admin: 03/03/20 10:02 Dose: 2 puff Documented by: Docusate Sodium (Colace -) 100 mg PO BID PRN PRN Reason: CONSTIPATION Dorzolamide HCl (Trusopt 2%) 1 drop OU BID [facility] Last Admin: 03/03/20 10:02 Dose: 1 drop Documented by: Folic Acid (Folic Acid -) 1 mg PO DAILY [facility] Last Admin: 03/03/20 10:01 Dose: 1 mg Documented by: Gabapentin (Neurontin -) 300 mg PO BID [facility] Last Admin: 03/03/20 10:01 Dose: 300 mg Documented by: Heparin Sodium (Porcine) (Heparin -) 5,000 unit SQ BID [facility] Sodium Chloride (Normal Saline -) 1,000 mls @ 30 mls/hr IV ASDIR [facility] Last Admin: 03/03/20 00:18 Dose: 30 mls/hr Documented by: Sodium Chloride (Normal Saline -) 250 mls @ 3,000 mls/hr IV PRN PRN PRN Reason: Hypotension during Dialysis Stop: 03/03/20 16:40 Insulin Aspart (Novolog Vial Sliding Scale -) 1 vial SQ ACHS [facility]; Protocol Last Admin: 03/03/20 10:05 Dose: 4 units Documented by: Loperamide HCl (Imodium -) 2 mg PO Q6H PRN PRN Reason: DIARRHEA Losartan Potassium (Cozaar -) 50 mg PO DAILY [facility] Last Admin: 03/03/20 10:01 Dose: 50 mg Documented by: Montelukast Sodium (Singulair -) 10 mg PO HS [facility] Last Admin: 03/02/20 21:32 Dose: 10 mg Documented by: Pantoprazole Sodium (Protonix -) 40 mg PO DAILY [facility] Last Admin: 03/03/20 10:00 Dose: 40 mg Documented by: Paroxetine HCl (Paxil -) 10 mg PO DAILY [facility] Last Admin: 03/03/20 10:01 Dose: 10 mg Documented by: Polyethylene Glycol (Miralax (For Daily Use) -) 17 gm PO DAILY PRN PRN Reason: CONSTIPATION Sevelamer Carbonate (Renvela -) 1,600 mg PO TIDCM [facility] Last Admin: 03/03/20 12:15 Dose: 1,600 mg Documented by: Timolol Maleate (Timoptic 0.5%) 1 drop OU BID [facility] Last Admin: 03/03/20 10:02 Dose: 1 drop Documented by: Assessment/Plan: Acute blood loss anemia 2/2 menorrhagia Stage IIIb Cervical Ca ESRD on HD History of DM History of Bipolar disorder History of Anxiety --Hgb down to 7.7 today --Continue to monitor with threshold <7.0 --Patient's bleeding subsiding and continue to hold AC as a result --Discuss with hematology plan regarding Carboplatin therapy disposition --4 more treatments of RT to be had on an outpatient basis --Continue oxycodone 5mg q4h PRN for severe pain with PRN bowel regimen --Continue Neurontin 300mg BID --Dialysis today --Continue Renvela home dose --Continue home antihypertensives --Replete electrolytes conservatively considering ESRD Dispo: Dialysis today; monitor H/H DO Yulisa Wan
--- NOTE | 2020-03-03 14:51 | PN ---
Progress Note, Physician History of Present Illness: Seen and examined at the bedside currently getting dialysis BP stable catheter working well for blood transfusion with dialysis awake and alert pt denies any pain, shortness of breath, fever or chills had vaginal bleeding last night but not as bad as the day prior - Current Medication List Current Medications: Active Medications Albuterol Sulfate (Ventolin 0.083% Nebulizer Soln -) 1 amp NEB Q6H PRN PRN Reason: SHORTNESS OF BREATH Amlodipine Besylate (Norvasc -) 5 mg PO DAILY [facility] Last Admin: 03/03/20 10:01 Dose: 5 mg Documented by: Budesonide/Formoterol Fumarate (Symbicort 80/4.5mcg -) 2 puff IH BID [facility] Last Admin: 03/03/20 10:02 Dose: 2 puff Documented by: Docusate Sodium (Colace -) 100 mg PO BID PRN PRN Reason: CONSTIPATION Dorzolamide HCl (Trusopt 2%) 1 drop OU BID [facility] Last Admin: 03/03/20 10:02 Dose: 1 drop Documented by: Folic Acid (Folic Acid -) 1 mg PO DAILY [facility] Last Admin: 03/03/20 10:01 Dose: 1 mg Documented by: Gabapentin (Neurontin -) 300 mg PO BID [facility] Last Admin: 03/03/20 10:01 Dose: 300 mg Documented by: Heparin Sodium (Porcine) (Heparin -) 5,000 unit SQ BID [facility] Sodium Chloride (Normal Saline -) 1,000 mls @ 30 mls/hr IV ASDIR [facility] Last Admin: 03/03/20 00:18 Dose: 30 mls/hr Documented by: Sodium Chloride (Normal Saline -) 250 mls @ 3,000 mls/hr IV PRN PRN PRN Reason: Hypotension during Dialysis Stop: 03/03/20 16:40 Insulin Aspart (Novolog Vial Sliding Scale -) 1 vial SQ ACHS [facility]; Protocol Last Admin: 03/03/20 10:05 Dose: 4 units Documented by: Loperamide HCl (Imodium -) 2 mg PO Q6H PRN PRN Reason: DIARRHEA Losartan Potassium (Cozaar -) 50 mg PO DAILY [facility] Last Admin: 03/03/20 10:01 Dose: 50 mg Documented by: Montelukast Sodium (Singulair -) 10 mg PO HS [facility] Last Admin: 03/02/20 21:32 Dose: 10 mg Documented by: Pantoprazole Sodium (Protonix -) 40 mg PO DAILY [facility] Last Admin: 03/03/20 10:00 Dose: 40 mg Documented by: Paroxetine HCl (Paxil -) 10 mg PO DAILY [facility] Last Admin: 03/03/20 10:01 Dose: 10 mg Documented by: Polyethylene Glycol (Miralax (For Daily Use) -) 17 gm PO DAILY PRN PRN Reason: CONSTIPATION Sevelamer Carbonate (Renvela -) 1,600 mg PO TIDCM [facility] Last Admin: 03/03/20 12:15 Dose: 1,600 mg Documented by: Timolol Maleate (Timoptic 0.5%) 1 drop OU BID [facility] Last Admin: 03/03/20 10:02 Dose: 1 drop Documented by: - Objective Vital Signs: Vital Signs Temperature 98.2 F 03/03/20 06:00 Pulse Rate 81 03/03/20 06:00 Respiratory Rate 18 03/03/20 09:00 Blood Pressure 122/70 03/03/20 06:00 O2 Sat by Pulse Oximetry (%) 94 L 03/03/20 09:00 Constitutional: Yes: No Distress Cardiovascular: Yes: Regular Rate and Rhythm Respiratory: Yes: Regular Gastrointestinal: Yes: Soft, Abdomen, Obese Extremities: No: Cyanosis Edema: No Labs: CBC, BMP 03/03/20 06:06 03/03/20 06:06 INR, PTT INR 0.97 (0.83-1.09) 03/01/20 12:00 Assessment/Plan 40 year old woman with history of 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 1. Suspected Splenic infarction 2. Diarrhea 3. ESRD on HD 4. Hypertension 5. Cervical cancer 6. Bipolar disorder 7. Anemia in setting of CKD Tolerating dialysis well today for PRBC transfusion with dialysis off A/C due to vaginal bleeding C-diff toxin and antigen negative Blood cultures w/o growth 1.2L daily fluid restriction Continue current antihypertensives Trend H/H, no EKTA given she has cervical cancer Heme/Onc follow up. Thank you Brian Dahl DO
--- NOTE | 2020-03-03 17:27 | PN.HO ---
Progress Note (short form) - Note Progress Note: S: Doing well. Seen and examined during dialysis. Mentioned that continued to have vaginal bleeding but is less that the previous day O: Last Vital Signs Temp Pulse Resp BP Pulse Ox 98.5 F 85 18 157/96 100 03/03/20 14:56 03/03/20 17:19 03/03/20 17:19 03/03/20 17:19 03/03/20 14:56 Assessment and Plan: 40 y/o lady with locally advanced cervical cancer wih paraaortic fredi involvement on PET , getting concurrent carboplatin/RT comes in with episode of dizziness, HTN at dialysis on 02/29/20. Noted to have splenic hypodensity suspicious for splenic infarct on CT scan abdomen 1) Splenic infarct. Started on Heparin gtt but stopped due to vaginal bleeding 2) Vaginal bleeding improving 3) Daily CBC and transfuse to keep hemoglobin above 7. 4) Zev nephrology team help on HD. 5) Locally Advanced Cervical CA with paraaortic fredi involvement on PET (Stage IIIC2r (radiology). FIGO 2018). Treated with concurrent Carboplatin/XRT (6X) (Last Carboplatin dose 02/29/20)
[2020-03-03] MEDS: MONTELUKAST NA 10 MG TABLET PO SCH (21:24)
[2020-03-03] MEDS: HEPARIN NA (PORCINE) 5,000 UNITS/ML 1ML VIAL SQ SCH (21:25)
[2020-03-03] MEDS ORDERED: oxyCODONE HCL 5 MG TABLET PO ONE (21:35)
[2020-03-04] MEDS: INSULIN SLIDING SCALE (NOVOLOG) 1 VIAL SQ SCH ×4 (06:17→21:42)
[2020-03-04 07:39] LABS: HEMATOCRIT 25.9 % (32.4-45.2); HEMOGLOBIN 8.9 GM/dL (10.7-15.3); MCH 29.8 pg (25.7-33.7); MCHC 34.4 g/dl (32.0-36.0); MEAN CELL VOLUME 86.6 fl (80-96); PLATELET COUNT 76 K/MM3 (134-434); RBC 2.99 M/mm3 (3.60-5.2); RDW 16.1 % (11.6-15.6); WHITE BLOOD COUNT 3.9 K/mm3 (4.0-10.0)
[2020-03-04 07:56] LABS: BLOOD UREA NITROGEN 22.9 mg/dL (7-18); CREATININE 3.6 mg/dL (0.55-1.3); MAGNESIUM 1.6 mg/dL (1.8-2.4); POTASSIUM 3.2 mmol/L (3.5-5.1)
[2020-03-04 08:00] LABS: CALCIUM 6.9 mg/dL (8.5-10.1)
[2020-03-04] MEDS ORDERED: MAGNESIUM OXIDE 400 MG TABLET (FP) PO ONE (09:00)
[2020-03-04] MEDS ORDERED: POTASSIUM CHLORIDE TABS 20 MEQ TABLET.ER (FP) PO ONE (09:00)
--- NOTE | 2020-03-04 09:29 | PN ---
Progress Note (short form) - Note Progress Note: S: Bleeding noted from patient's port yesterday with slight dislodgement. Bleeding has ceased from port and fixed by night staff. Patient reports menorrhagia is still present, however lightening. Patient otherwise has no complaints. Receiving regularly schedule dialysis today. Vital Signs Temperature 98.2 F 03/03/20 06:00 Pulse Rate 81 03/03/20 06:00 Respiratory Rate 18 03/03/20 09:00 Blood Pressure 122/70 03/03/20 06:00 O2 Sat by Pulse Oximetry (%) 94 L 03/03/20 09:00 PE: Gen: NAD, awake, alert, oriented HEENT: Nc/AT, [place], sclera anicteric, no conjunctival pallor, MMM CHEST: R sided permacath noted C/D/I, L sided chemoport noted without any drainage or bleeding, no hematoma noted LUNG: CTA b/l without wheezes or rales CARD: RRR no murmurs ABD: soft, NT/ND, + BS ExT: No edema, pulses strong b/l CBC, BMP 03/04/20 06:15 03/04/20 06:15 Active Medications Albuterol Sulfate (Ventolin 0.083% Nebulizer Soln -) 1 amp NEB Q6H PRN PRN Reason: SHORTNESS OF BREATH Amlodipine Besylate (Norvasc -) 5 mg PO DAILY [facility] Last Admin: 03/03/20 10:01 Dose: 5 mg Documented by: Budesonide/Formoterol Fumarate (Symbicort 80/4.5mcg -) 2 puff IH BID [facility] Last Admin: 03/03/20 10:02 Dose: 2 puff Documented by: Docusate Sodium (Colace -) 100 mg PO BID PRN PRN Reason: CONSTIPATION Dorzolamide HCl (Trusopt 2%) 1 drop OU BID [facility] Last Admin: 03/03/20 10:02 Dose: 1 drop Documented by: Folic Acid (Folic Acid -) 1 mg PO DAILY [facility] Last Admin: 03/03/20 10:01 Dose: 1 mg Documented by: Gabapentin (Neurontin -) 300 mg PO BID [facility] Last Admin: 03/03/20 10:01 Dose: 300 mg Documented by: Heparin Sodium (Porcine) (Heparin -) 5,000 unit SQ BID [facility] Sodium Chloride (Normal Saline -) 1,000 mls @ 30 mls/hr IV ASDIR [facility] Last Admin: 03/03/20 00:18 Dose: 30 mls/hr Documented by: Sodium Chloride (Normal Saline -) 250 mls @ 3,000 mls/hr IV PRN PRN PRN Reason: Hypotension during Dialysis Stop: 03/03/20 16:40 Insulin Aspart (Novolog Vial Sliding Scale -) 1 vial SQ ACHS [facility]; Protocol Last Admin: 03/03/20 10:05 Dose: 4 units Documented by: Loperamide HCl (Imodium -) 2 mg PO Q6H PRN PRN Reason: DIARRHEA Losartan Potassium (Cozaar -) 50 mg PO DAILY [facility] Last Admin: 03/03/20 10:01 Dose: 50 mg Documented by: Montelukast Sodium (Singulair -) 10 mg PO HS [facility] Last Admin: 03/02/20 21:32 Dose: 10 mg Documented by: Pantoprazole Sodium (Protonix -) 40 mg PO DAILY [facility] Last Admin: 03/03/20 10:00 Dose: 40 mg Documented by: Paroxetine HCl (Paxil -) 10 mg PO DAILY [facility] Last Admin: 03/03/20 10:01 Dose: 10 mg Documented by: Polyethylene Glycol (Miralax (For Daily Use) -) 17 gm PO DAILY PRN PRN Reason: CONSTIPATION Sevelamer Carbonate (Renvela -) 1,600 mg PO TIDCM [facility] Last Admin: 03/03/20 12:15 Dose: 1,600 mg Documented by: Timolol Maleate (Timoptic 0.5%) 1 drop OU BID [facility] Last Admin: 03/03/20 10:02 Dose: 1 drop Documented by: Assessment/Plan: Acute blood loss anemia 2/2 menorrhagia Stage IIIb Cervical Ca ESRD on HD History of DM History of Bipolar disorder History of Anxiety Hypokalemia HypoMagnesemia --Hgb 8.9 today (no transfusions yesterday) --Continue to monitor with threshold <7.0 --Patient's bleeding subsiding and continue to hold AC as a result --Discuss with hematology plan regarding Carboplatin therapy disposition --4 more treatments of RT to be had on an outpatient basis --Continue oxycodone 5mg q4h PRN for severe pain with PRN bowel regimen --Continue Neurontin 300mg BID --Dialysis yesterday --Continue Renvela home dose --Repleted Mg (mag-ox 400) and K+ (kdur 40 once) given significant low results --Corrected calcium 8.59 today --Continue home antihypertensives Dispo: H/H improving; pending hematology/oncology plan DO Yulisa Wan IM
[2020-03-04] MEDS: SEVELAMER CARBONATE 800 MG TAB (FP) PO SCH ×3 (09:56→16:31)
[2020-03-04] MEDS: FOLIC ACID 1 MG TABLET (FP) PO SCH (09:56)
[2020-03-04] MEDS: LOSARTAN POTASSIUM 50 MG TABLET PO SCH (09:56)
[2020-03-04] MEDS: amLODIPine BESYLATE 5 MG TABLET (FP) PO SCH (09:56)
[2020-03-04] MEDS: PANTOPRAZOLE 40 MG TABLET PO SCH (09:56)
[2020-03-04] MEDS: PARoxetine HCL 10 MG TABLET PO SCH (09:56)
[2020-03-04] MEDS: GABAPENTIN 300 MG CAPSULE PO SCH ×2 (09:56→21:44)
[2020-03-04] MEDS: HEPARIN NA (PORCINE) 5,000 UNITS/ML 1ML VIAL SQ SCH ×2 (09:57→21:44)
[2020-03-04] MEDS: TIMOLOL 0.5% OPHTHALMIC SOL 5 ML BOTTLE OU SCH ×2 (09:57→21:47)
[2020-03-04] MEDS: BUDESONIDE/FORMETEROL FUMARATE 80/4.5 mcg INHALER IH SCH ×2 (09:57→21:46)
[2020-03-04] MEDS: DORZOLAMIDE 2% HCL OPHTHALMIC SOLUTION 10 ML BOTTLE OU SCH ×2 (09:57→21:47)
[2020-03-04] MEDS: oxyCODONE HCL 5 MG TABLET PO PRN ×2 (16:32→23:15)
--- NOTE | 2020-03-04 17:58 | PN.HO ---
Progress Note (short form) - Note Progress Note: S: Mentioned some cramps and back pain she attributes to her period. Asked RN pain medications O: Last Vital Signs Temp Pulse Resp BP Pulse Ox 98.8 F 84 18 135/78 99 03/04/20 05:50 03/04/20 05:50 03/04/20 09:00 03/04/20 05:50 03/04/20 09:00 Gen: NAD HEENT: MMM CVS: S1, S2 Lungs: CTAB (Anterior) Abdomen: Mild tenderness Ext: No edema Current Medications Generic Name Dose Route Start Last Admin Trade Name Freq PRN Reason Stop Dose Admin Albuterol Sulfate 1 amp 03/02/20 08:52 Ventolin 0.083% Nebulizer Soln - NEB Q6H PRN SHORTNESS OF BREATH Amlodipine Besylate 5 mg 02/29/20 21:15 03/04/20 09:56 Norvasc - PO 5 mg DAILY [facility]O Administration Budesonide/Formoterol Fumarate 2 puff 02/29/20 22:00 03/04/20 09:57 Symbicort 80/4.5mcg - IH 2 puff BID [facility]ERTO Administration Docusate Sodium 100 mg 03/03/20 09:23 Colace - PO BID PRN CONSTIPATION Dorzolamide HCl 1 drop 02/29/20 22:00 03/04/20 09:57 Trusopt 2% OU 1 drop BID [facility]ERTO Administration Folic Acid 1 mg 03/01/20 10:00 03/04/20 09:56 Folic Acid - PO 1 mg DAILY [facility] Administration Gabapentin 300 mg 02/29/20 22:00 03/04/20 09:56 Neurontin - PO 300 mg BID [facility]O Administration Heparin Sodium (Porcine) 5,000 unit 03/03/20 22:00 03/04/20 09:57 Heparin - SQ 5,000 unit BID [facility]O Administration Sodium Chloride 250 mls @ 3,000 mls/hr 03/02/20 16:39 Normal Saline - IV 03/03/20 16:40 PRN PRN Hypotension during Dialysis Insulin Aspart 1 vial 03/02/20 16:30 03/04/20 16:31 Novolog Vial Sliding Scale - SQ Not Given ACHS [facility]ERTO Protocol Loperamide HCl 2 mg 02/29/20 20:08 Imodium - PO Q6H PRN DIARRHEA Losartan Potassium 50 mg 03/01/20 10:00 03/04/20 09:56 Cozaar - PO 50 mg DAILY [facility] Administration Montelukast Sodium 10 mg 02/29/20 22:00 03/03/20 21:24 Singulair - PO 10 mg HS [facility]O Administration Oxycodone HCl 5 mg 03/04/20 15:58 03/04/20 16:32 Roxicodone - PO 5 mg Q6H PRN Administration PAIN LEVEL 7 - 10 Pantoprazole Sodium 40 mg 03/01/20 10:00 03/04/20 09:56 Protonix - PO 40 mg DAILY [facility] Administration Paroxetine HCl 10 mg 03/01/20 10:00 03/04/20 09:56 Paxil - PO 10 mg DAILY [facility] Administration Polyethylene Glycol 17 gm 03/03/20 09:23 Miralax (For Daily Use) - PO DAILY PRN CONSTIPATION Sevelamer Carbonate 1,600 mg 03/02/20 16:29 03/04/20 16:31 Renvela - PO 1,600 mg TIDCM [facility]O Administration Timolol Maleate 1 drop 02/29/20 22:00 03/04/20 09:57 Timoptic 0.5% OU 1 drop BID [facility] Administration Assessment and Plan: 40 y/o lady with locally advanced cervical cancer wih paraaortic fredi involvement on PET , getting concurrent carboplatin/RT comes in with episode of dizziness, HTN at dialysis on 02/29/20. Noted to have splenic hypodensity suspic ious for splenic infarct on CT scan abdomen 1) Splenic infarct. Started on Heparin gtt but stopped due to vaginal bleeding 2) Vaginal bleeding improving 3) Daily CBC and transfuse to keep hemoglobin above 7. 4) Zev nephrology team help on HD. 5) Locally Advanced Cervical CA with paraaortic fredi involvement on PET (Stage IIIC2r (radiology). FIGO 2018). Treated with concurrent Carboplatin/XRT (6X) (Last Carboplatin dose 02/29/20). Next dose of carboplatin to be determined upon evaluation early next week. 6) Will continue to follow.
[2020-03-04] MEDS: MONTELUKAST NA 10 MG TABLET PO SCH (21:44)
[2020-03-05 00:56] LABS: HEMATOCRIT 30.2 % (32.4-45.2); HEMOGLOBIN 10.3 GM/dL (10.7-15.3); MCH 29.5 pg (25.7-33.7); MCHC 34.1 g/dl (32.0-36.0); MEAN CELL VOLUME 86.6 fl (80-96); PLATELET COUNT 86 K/MM3 (134-434); RBC 3.49 M/mm3 (3.60-5.2); RDW 16.2 % (11.6-15.6); WHITE BLOOD COUNT 4.8 K/mm3 (4.0-10.0)
[2020-03-05] MEDS: INSULIN SLIDING SCALE (NOVOLOG) 1 VIAL SQ SCH ×4 (06:04→21:02)
[2020-03-05] MEDS ORDERED: PT OWN MED DRAWER 7, Y5N ONE (08:27)
[2020-03-05] MEDS: SEVELAMER CARBONATE 800 MG TAB (FP) PO SCH ×3 (08:33→17:10)
[2020-03-05 08:43] LABS: BASO % 0.9 % (0-2.0); EOS % 1.4 % (0-4.5); HEMOGLOBIN 8.9 GM/dL (10.7-15.3); LYMPH % 14.1 % (8-40); MCH 30.4 pg (25.7-33.7); MCHC 34.1 g/dl (32.0-36.0); MEAN CELL VOLUME 89.2 fl (80-96); MEAN PLT VOLUME 8.7 fl (7.5-11.1); NEUT % 73.6 % (42.8-82.8); PLATELET COUNT 75 K/MM3 (134-434); RBC 2.92 M/mm3 (3.60-5.2); RDW 16.1 % (11.6-15.6); WHITE BLOOD COUNT 3.8 K/mm3 (4.0-10.0)
[2020-03-05 08:51] LABS: BLOOD UREA NITROGEN 38.9 mg/dL (7-18); CREATININE 4.6 mg/dL (0.55-1.3); MAGNESIUM 1.6 mg/dL (1.8-2.4); POTASSIUM 3.5 mmol/L (3.5-5.1)
[2020-03-05 08:58] LABS: CALCIUM 6.9 mg/dL (8.5-10.1)
[2020-03-05] MEDS: HEPARIN NA (PORCINE) 5,000 UNITS/ML 1ML VIAL SQ SCH ×2 (10:03→21:03)
[2020-03-05] MEDS: PANTOPRAZOLE 40 MG TABLET PO SCH (10:03)
[2020-03-05] MEDS: amLODIPine BESYLATE 5 MG TABLET (FP) PO SCH (10:03)
[2020-03-05] MEDS: PARoxetine HCL 10 MG TABLET PO SCH (10:03)
[2020-03-05] MEDS: GABAPENTIN 300 MG CAPSULE PO SCH ×2 (10:03→21:03)
[2020-03-05] MEDS: LOSARTAN POTASSIUM 50 MG TABLET PO SCH (10:04)
[2020-03-05] MEDS: FOLIC ACID 1 MG TABLET (FP) PO SCH (10:04)
--- NOTE | 2020-03-05 10:07 | PN ---
Physical Exam: SUBJECTIVE: Patient seen and examined this AM. No new complaints. Port dislodged over the weekend. OBJECTIVE: Vital Signs Period Temp Pulse Resp BP Sys/Farah Pulse Ox Last 24 Hr 98.7 F-98.9 F 76-93 18-18 121-148/58-86 97-100 GENERAL: A&Ox3, NAD HEAD: NCAT EYES: PERRL, EOMI ENT: Moist mucous membranes. NECK: Supple CHEST: Right HD access, L sided chemoport without any drainage or bleeding LUNGS: Diminished breath sounds at the bases, No wheezes. HEART: Regular rate and rhythm, normal S1 and S2 without murmur ABDOMEN: Obese, Soft, nontender, not distended, + bowel sounds, no guarding, no rebound EXTREMITIES: No peripheral edema. NEUROLOGICAL: Cranial nerves II-XII intact. Normal speech. SKIN: Warm, dry Laboratory Last Values WBC 3.8 K/mm3 (4.0-10.0) L 03/05/20 05:35 Corrected WBC (auto) Cancelled 03/03/20 01:30 RBC 2.92 M/mm3 (3.60-5.2) L 03/05/20 05:35 Hgb 8.9 GM/dL (10.7-15.3) L 03/05/20 05:35 Hct 26.0 % (32.4-45.2) L 03/05/20 05:35 MCV 89.2 fl (80-96) 03/05/20 05:35 MCH 30.4 pg (25.7-33.7) 03/05/20 05:35 MCHC 34.1 g/dl (32.0-36.0) 03/05/20 05:35 RDW 16.1 % (11.6-15.6) H 03/05/20 05:35 Plt Count 75 K/MM3 (134-434) L 03/05/20 05:35 MPV 8.7 fl (7.5-11.1) 03/05/20 05:35 Absolute Neuts (auto) 2.8 K/mm3 (1.5-8.0) 03/05/20 05:35 Absolute Lymphs (auto) Cancelled 03/03/20 01:30 Absolute Monos (auto) Cancelled 03/03/20 01:30 Absolute Eos (auto) Cancelled 03/03/20 01:30 Absolute Basos (auto) Cancelled 03/03/20 01:30 Add Manual Diff Cancelled 03/03/20 01:30 Neutrophils % 73.6 % (42.8-82.8) 03/05/20 05:35 Lymphocytes % 14.1 % (8-40) D 03/05/20 05:35 Monocytes % 10.0 % (3.8-10.2) 03/05/20 05:35 Eosinophils % 1.4 % (0-4.5) 03/05/20 05:35 Basophils % 0.9 % (0-2.0) 03/05/20 05:35 Nucleated RBC % 0 % (0-0) 03/05/20 05:35 Manual Slide Review Cancelled 03/02/20 07:45 Platelet Estimate Cancelled 03/03/20 01:30 Platelet Comment Cancelled 03/03/20 01:30 Normal RBC Morphology Cancelled 03/03/20 01:30 PT with INR 11.40 SEC (9.7-13.0) 03/01/20 12:00 INR 0.97 (0.83-1.09) 03/01/20 12:00 PTT (Actin FS) 27.8 SECONDS (25.2-36.5) 03/05/20 05:35 Sodium 140 mmol/L (136-145) 03/05/20 05:35 Potassium 3.5 mmol/L (3.5-5.1) 03/05/20 05:35 Chloride 106 mmol/L (98-107) 03/05/20 05:35 Carbon Dioxide 27 mmol/L (21-32) 03/05/20 05:35 Anion Gap 6 MMOL/L (8-16) L 03/05/20 05:35 BUN 38.9 mg/dL (7-18) H 03/05/20 05:35 Creatinine 4.6 mg/dL (0.55-1.3) H 03/05/20 05:35 Est GFR (CKD-EPI)AfAm 12.99 03/05/20 05:35 Est GFR (CKD-EPI)NonAf 11.21 03/05/20 05:35 POC Glucometer 200 UNITS (80-120) 03/05/20 06:03 Random Glucose 197 mg/dL (74-106) H 03/05/20 05:35 Lactic Acid 0.8 mmol/L (0.4-2.0) 02/29/20 00:00 Calcium 6.9 mg/dL (8.5-10.1) L* 03/05/20 05:35 Phosphorus 4.5 mg/dL (2.5-4.9) 03/03/20 06:06 Magnesium 1.6 mg/dL (1.8-2.4) L 03/05/20 05:35 Total Bilirubin 0.2 mg/dL (0.2-1) 03/03/20 06:06 AST 10 U/L (15-37) L 03/03/20 06:06 ALT 14 U/L (13-61) 03/03/20 06:06 Alkaline Phosphatase 89 U/L (45-117) 03/03/20 06:06 Creatine Kinase 64 U/L (26-192) 02/28/20 17:13 Troponin I 0.03 ng/ml (0.00-0.05) 02/28/20 17:13 Total Protein 4.8 g/dl (6.4-8.2) L 03/03/20 06:06 Albumin 1.9 g/dl (3.4-5.0) L 03/03/20 06:06 Lipase 31 U/L (73-393) L 02/28/20 17:13 Serum , Qual Negative 02/28/20 17:31 Stool Occult Blood Negative (NEGATIVE) 03/01/20 06:30 Stool O & P Wet [place] (.) 02/29/20 19:30 COVID-19 (JAVON) Not detected (Not Detected) 02/29/20 01:00 O & P Permanent Slide Final report (.) 02/29/20 19:30 Blood Type O POSITIVE 03/03/20 06:06 Antibody Screen Negative 03/03/20 06:06 Crossmatch See Detail 03/03/20 06:06 ASSESSMENT/PLAN: 40 y/o F PMHx ESRD (on HD TuThSa), Stage IIIB cervical cancer (On Carboplatin and radiotherapy, last dose 02/02), DM 1, Bipolar Disorder/Depression/Anxiety, asthma, recently discharged from [facility] on 02/20 after being found to have nonfunctional permacath requiring exchange and required 1u pRBC during that admission, admitted this admission for dizziness/headache during HD, Abdominal pain, BP Abnormalities. Initial CT A/P concerning for splenic infarct for which patient was started on Heparin GTT but stopped due to bleeding. Chemo Port was displaced with resultant chest wall hematoma requiring 1u pRBC transfusion. #Stage IIIB cervical cancer -On Carboplatin (has completed 6 doses) and radiotherapy -Port Study with IR to insure functionality -Ultrasound to evaluate for breast hematoma -Continue close outpatient follow up for radiation -DVT PPx #Splenic infarct -Found incidently on imaging in the setting of hypercoagulability due to underlying malignancy on active chemo/radiation -Heparin GTT held given bleeding; Bleeding subsiding -Analgesia -General Surgery evaluation appreciated #Anemia -Likely multifactorial anemia of chronic inflammation in the setting of ESRD while on active chemotherapy, requiring pRBC transfusions in the past -Transfuse to maintain Hgb > 7.0 -Follow hematology as an outpatient #Thrombocytopenia -Likely due to Active chemotherapy -Can continue Heparin Gtt unless PLTs < 55 Visit type - Emergency Visit Emergency Visit: Yes ED Registration Date: 02/28/20 Care time: The patient presented to the Emergency Department on the above date and was hospitalized for further evaluation of their emergent condition. - New Patient This patient is new to me today: Yes Date on this admission: 03/06/20 - Critical Care Critical Care patient: No - Discharge Referral Referred to [facility] Med P.C.: No ATTENDING PHYSICIAN STATEMENT I saw and evaluated the patient. I reviewed the resident's note and discussed the case with the resident. I agree with the resident's findings and plan as documented. SUBJECTIVE: OBJECTIVE: ASSESSMENT AND PLAN:
[2020-03-05] MEDS: BUDESONIDE/FORMETEROL FUMARATE 80/4.5 mcg INHALER IH SCH ×2 (10:09→21:04)
[2020-03-05] MEDS: TIMOLOL 0.5% OPHTHALMIC SOL 5 ML BOTTLE OU SCH ×2 (10:11→21:04)
[2020-03-05] MEDS: DORZOLAMIDE 2% HCL OPHTHALMIC SOLUTION 10 ML BOTTLE OU SCH ×2 (10:12→21:04)
[2020-03-05] MEDS ORDERED: INSULIN (NOVOLOG) ASPART 100 UNITS/ML 10ML VIAL ONE (11:41)
[2020-03-05] MEDS: oxyCODONE HCL 5 MG TABLET PO PRN ×2 (11:58→12:41)
--- NOTE | 2020-03-05 12:07 | PN ---
Physical Exam: SUBJECTIVE: Patient seen and examined at bedside. Patient complaining of pain in left axilla. Notable bruising. Will order u/s to assess for hematoma. Patient's chemo port dislodged over weekend- will discuss with I.R. OBJECTIVE: Vital Signs Period Temp Pulse Resp BP Sys/Farah Pulse Ox Last 24 Hr 98.0 F-98.9 F 76-93 18-18 121-148/58-86 97-100 GENERAL: No acute distress HEAD: Normal with no signs of trauma. EYES: EOMI Sclera Clear . CHEST: ecchymosis present extending toward axilla LUNGS: Decreased breath sounds. HEART: RRR No MRG S1S2 ABDOMEN: Suprapubic tenderness. EXTREMITIES: No CCE Laboratory Results - last 24 hr 03/04/20 03/04/20 03/05/20 16:30 21:41 00:00 WBC 4.8 RBC 3.49 L Hgb 10.3 L Hct 30.2 L D MCV 86.6 MCH 29.5 MCHC 34.1 RDW 16.2 H Plt Count 86 L MPV 8.0 Absolute Neuts (auto) Neutrophils % Lymphocytes % Monocytes % Eosinophils % Basophils % Nucleated RBC % PTT (Actin FS) Sodium Potassium Chloride Carbon Dioxide Anion Gap BUN Creatinine Est GFR (CKD-EPI)AfAm Est GFR (CKD-EPI)NonAf POC Glucometer 150 265 Random Glucose Calcium Magnesium 03/05/20 03/05/20 03/05/20 05:35 05:35 05:35 WBC 3.8 L RBC 2.92 L Hgb 8.9 L Hct 26.0 L MCV 89.2 MCH 30.4 MCHC 34.1 RDW 16.1 H Plt Count 75 L MPV 8.7 Absolute Neuts (auto) 2.8 Neutrophils % 73.6 Lymphocytes % 14.1 D Monocytes % 10.0 Eosinophils % 1.4 Basophils % 0.9 Nucleated RBC % 0 PTT (Actin FS) 27.8 Sodium 140 Potassium 3.5 Chloride 106 Carbon Dioxide 27 Anion Gap 6 L BUN 38.9 H Creatinine 4.6 H Est GFR (CKD-EPI)AfAm 12.99 Est GFR (CKD-EPI)NonAf 11.21 POC Glucometer Random Glucose 197 H Calcium 6.9 L* Magnesium 1.6 L 03/05/20 03/05/20 06:03 11:53 WBC RBC Hgb Hct MCV MCH MCHC RDW Plt Count MPV Absolute Neuts (auto) Neutrophils % Lymphocytes % Monocytes % Eosinophils % Basophils % Nucleated RBC % PTT (Actin FS) Sodium Potassium Chloride Carbon Dioxide Anion Gap BUN Creatinine Est GFR (CKD-EPI)AfAm Est GFR (CKD-EPI)NonAf POC Glucometer 200 218 Random Glucose Calcium Magnesium Active Medications Generic Name Dose Route Start Last Admin Trade Name Freq PRN Reason Stop Dose Admin Albuterol Sulfate 1 amp 03/02/20 08:52 Ventolin 0.083% Nebulizer Soln - NEB Q6H PRN SHORTNESS OF BREATH Amlodipine Besylate 5 mg 02/29/20 21:15 03/05/20 10:03 Norvasc - PO 5 mg DAILY UMBERTO Administration Budesonide/Formoterol Fumarate 2 puff 02/29/20 22:00 03/05/20 10:09 Symbicort 80/4.5mcg - IH Not Given BID UMBERTO Docusate Sodium 100 mg 03/03/20 09:23 Colace - PO BID PRN CONSTIPATION Dorzolamide HCl 1 drop 02/29/20 22:00 03/05/20 10:12 Trusopt 2% OU Not Given BID UMBERTO Folic Acid 1 mg 03/01/20 10:00 03/05/20 10:04 Folic Acid - PO 1 mg DAILY UMBERTO Administration Gabapentin 300 mg 02/29/20 22:00 03/05/20 10:03 Neurontin - PO 300 mg BID UMBERTO Administration Heparin Sodium (Porcine) 5,000 unit 03/03/20 22:00 03/05/20 10:03 Heparin - SQ 5,000 unit BID UMBERTO Administration Sodium Chloride 250 mls @ 3,000 mls/hr 03/02/20 16:39 Normal Saline - IV 03/03/20 16:40 PRN PRN Hypotension during Dialysis Insulin Aspart 1 vial 03/02/20 16:30 03/05/20 12:00 Novolog Vial Sliding Scale - SQ 4 units ACHS UMBERTO Administration Protocol Loperamide HCl 2 mg 02/29/20 20:08 Imodium - PO Q6H PRN DIARRHEA Losartan Potassium 50 mg 03/01/20 10:00 03/05/20 10:04 Cozaar - PO 50 mg DAILY UMBERTO Administration Montelukast Sodium 10 mg 02/29/20 22:00 03/04/20 21:44 Singulair - PO 10 mg HS UMBERTO Administration Oxycodone HCl 5 mg 03/04/20 15:58 03/05/20 11:58 Roxicodone - PO 5 mg Q6H PRN Administration PAIN LEVEL 7 - 10 Pantoprazole Sodium 40 mg 03/01/20 10:00 03/05/20 10:03 Protonix - PO 40 mg DAILY UMBERTO Administration Paroxetine HCl 10 mg 03/01/20 10:00 03/05/20 10:03 Paxil - PO 10 mg DAILY UMBERTO Administration Polyethylene Glycol 17 gm 03/03/20 09:23 Miralax (For Daily Use) - PO DAILY PRN CONSTIPATION Sevelamer Carbonate 1,600 mg 03/02/20 16:29 03/05/20 12:00 Renvela - PO 1,600 mg TIDCM UMBERTO Administration Timolol Maleate 1 drop 02/29/20 22:00 03/05/20 10:11 Timoptic 0.5% OU Not Given BID UMBERTO ASSESSMENT/PLAN: 40-year-old female past medical history of ESRD, stage IIIb cervical cancer on carboplatin and radiotherapy, DM 1, bipolar/depression/anxiety, asthma admitted From hemodialysis for labile blood pressure and diarrhea, 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 #Splenic infarct Heparin gtt stopped in light of heavy menstrual bleeding. Heme on board. Appreciate recs. #Acute blood loss anemia with concomitant AOC - PRBC transfusion if Hgb < 7 per heme To follow heme-onc as an outpatient #Left Breast Ecchymosis -U/S to assess for hematoma. Continue to monitor. Concern is that bleeding is from port dislodgment. #Stage IIIb cervical cancer On carboplatin and radiotherapy. No plan for chemo infusion this week - Discussed possible port study with I.R to assess functionality. Per I.R, CXR would suffice to determine dislodgment. Will order CXR. Heme/onc on board: Appreciate recommendations -Has double jj stent for right sided hydroureteronephrosis 2/2 compression from cancer. Need to have stent exchange end of this month per . #Thrombocytopenia In the setting of chemotherapy Continue to monitor #HTN Continue Losartan, Norvasc #Depression Continue Paxil #DM -ISS #ESRD on HD -nephrology on board: appreciate recs FEN No Fluids Monitor electrolytes Renal/Sodium Diet DVT ppx; None in light of anemia #Dispo; Med Surg Visit type - Emergency Visit Emergency Visit: Yes ED Registration Date: 02/28/20 Care time: The patient presented to the Emergency Department on the above date and was hospitalized for further evaluation of their emergent condition. - New Patient This patient is new to me today: No - Critical Care Critical Care patient: No - Discharge Referral Referred to [facility] Med P.C.: No ATTENDING PHYSICIAN STATEMENT I saw and evaluated the patient. I reviewed the resident's note and discussed the case with the resident. I agree with the resident's findings and plan as documented. SUBJECTIVE: OBJECTIVE: ASSESSMENT AND PLAN:
--- NOTE | 2020-03-05 12:52 | PN ---
Progress Note, Physician History of Present Illness: Seen and examined at the bedside awake and alert pt denies any pain, shortness of breath, fever or chills no overt vaginal bleeding, had some spotting - Current Medication List Current Medications: Active Medications Albuterol Sulfate (Ventolin 0.083% Nebulizer Soln -) 1 amp NEB Q6H PRN PRN Reason: SHORTNESS OF BREATH Amlodipine Besylate (Norvasc -) 5 mg PO DAILY [facility] Last Admin: 03/05/20 10:03 Dose: 5 mg Documented by: Budesonide/Formoterol Fumarate (Symbicort 80/4.5mcg -) 2 puff IH BID [facility] Last Admin: 03/05/20 10:09 Dose: Not Given Documented by: Docusate Sodium (Colace -) 100 mg PO BID PRN PRN Reason: CONSTIPATION Dorzolamide HCl (Trusopt 2%) 1 drop OU BID [facility] Last Admin: 03/05/20 10:12 Dose: Not Given Documented by: Folic Acid (Folic Acid -) 1 mg PO DAILY [facility] Last Admin: 03/05/20 10:04 Dose: 1 mg Documented by: Gabapentin (Neurontin -) 300 mg PO BID [facility] Last Admin: 03/05/20 10:03 Dose: 300 mg Documented by: Heparin Sodium (Porcine) (Heparin -) 5,000 unit SQ BID [facility] Last Admin: 03/05/20 10:03 Dose: 5,000 unit Documented by: Sodium Chloride (Normal Saline -) 250 mls @ 3,000 mls/hr IV PRN PRN PRN Reason: Hypotension during Dialysis Stop: 03/03/20 16:40 Insulin Aspart (Novolog Vial Sliding Scale -) 1 vial SQ ACHS [facility]; Protocol Last Admin: 03/05/20 12:00 Dose: 4 units Documented by: Loperamide HCl (Imodium -) 2 mg PO Q6H PRN PRN Reason: DIARRHEA Losartan Potassium (Cozaar -) 50 mg PO DAILY [facility] Last Admin: 03/05/20 10:04 Dose: 50 mg Documented by: Montelukast Sodium (Singulair -) 10 mg PO HS [facility] Last Admin: 03/04/20 21:44 Dose: 10 mg Documented by: Oxycodone HCl (Roxicodone -) 5 mg PO Q6H PRN PRN Reason: PAIN LEVEL 7 - 10 Last Admin: 03/05/20 12:41 Dose: 5 mg Documented by: Pantoprazole Sodium (Protonix -) 40 mg PO DAILY [facility] Last Admin: 03/05/20 10:03 Dose: 40 mg Documented by: Paroxetine HCl (Paxil -) 10 mg PO DAILY [facility] Last Admin: 03/05/20 10:03 Dose: 10 mg Documented by: Polyethylene Glycol (Miralax (For Daily Use) -) 17 gm PO DAILY PRN PRN Reason: CONSTIPATION Sevelamer Carbonate (Renvela -) 1,600 mg PO TIDCM [facility] Last Admin: 03/05/20 12:00 Dose: 1,600 mg Documented by: Timolol Maleate (Timoptic 0.5%) 1 drop OU BID [facility] Last Admin: 03/05/20 10:11 Dose: Not Given Documented by: - Objective Vital Signs: Vital Signs Temperature 98.0 F 03/05/20 10:12 Pulse Rate 91 H 03/05/20 10:12 Respiratory Rate 18 03/05/20 10:12 Blood Pressure 138/77 03/05/20 10:12 O2 Sat by Pulse Oximetry (%) 98 03/05/20 10:12 Constitutional: Yes: No Distress, Calm HENT: Yes: Atraumatic Neck: Yes: Supple Cardiovascular: Yes: Regular Rate and Rhythm Respiratory: Yes: Regular Gastrointestinal: Yes: Soft Extremities: No: Cyanosis Edema: No Labs: CBC, BMP 03/05/20 05:35 03/05/20 05:35 INR, PTT INR 0.97 (0.83-1.09) 03/01/20 12:00 Assessment/Plan 40 year old woman with history of 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 1. Suspected Splenic infarction 2. Diarrhea 3. ESRD on HD 4. Hypertension 5. Cervical cancer 6. Bipolar disorder 7. Anemia in setting of CKD for dialysis tomorrow via tunneled catheter will use cath-krista prior to dialysis for PRBC transfusion with dialysis on Thursday off A/C due to vaginal bleeding C-diff toxin and antigen negative Blood cultures w/o growth 1.2L daily fluid restriction Continue current antihypertensives Trend H/H, no EKTA given she has cervical cancer Heme/Onc follow up. Thank you Brian Dahl DO
--- NOTE | 2020-03-05 13:39 | PN ---
Teaching Attending Note Name of Resident: Zion Conner ATTENDING PHYSICIAN STATEMENT I saw and evaluated the patient. I reviewed the resident's note and discussed the case with the resident. I agree with the resident's findings and plan as documented. SUBJECTIVE: Seen and examined at bedside. Patient complaining soreness in her left breast an d axilla. Hematoma noted in the area. 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 #Splenic infarct Likely in the setting of hypercoagulable state secondary to malignancy Surgery and hematology on board: We will discuss Was on heparin drip with plan to switch to Coumadin. Was discontinued after patient developed menorrhagia #menorrahgia:resolved -in settign of heparin drip -AC discontinued -trend cbc -transfuse to hgb>7 #L breast hematoma concern that it is due to the dislodging of pt's chemoport -US L breast -IR consulted for port study #acute blood loss anemia on top of anemia of chronic disease -trend cbc -transfuse to hgb>7 #Stage IIIb cervical cancer On carboplatin and radiotherapy Hematology/unk on board: Appreciate recommendations #Thrombocytopenia In the setting of chemotherapy Continue to monitor #ESRD on HD -nephrology on board: appreciate recs
--- NOTE | 2020-03-05 15:20 | PN ---
Teaching Attending Note Name of Resident: Rylie Delaney ATTENDING PHYSICIAN STATEMENT I saw and evaluated the patient. I reviewed the resident's note and discussed the case with the resident. I agree with the resident's findings and plan as documented. 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
[2020-03-05] MEDS: MONTELUKAST NA 10 MG TABLET PO SCH (21:03)
[2020-03-06] MEDS: INSULIN SLIDING SCALE (NOVOLOG) 1 VIAL SQ SCH ×3 (06:00→16:53)
[2020-03-06 08:39] LABS: HEMATOCRIT 23.5 % (32.4-45.2); HEMOGLOBIN 8.2 GM/dL (10.7-15.3); MCH 30.9 pg (25.7-33.7); MCHC 34.9 g/dl (32.0-36.0); MEAN CELL VOLUME 88.4 fl (80-96); MEAN PLT VOLUME 8.2 fl (7.5-11.1); PLATELET COUNT 72 K/MM3 (134-434); RBC 2.66 M/mm3 (3.60-5.2); RDW 16.3 % (11.6-15.6); WHITE BLOOD COUNT 3.5 K/mm3 (4.0-10.0)
[2020-03-06 08:50] LABS: CALCIUM 7.4 mg/dL (8.5-10.1); MAGNESIUM 1.6 mg/dL (1.8-2.4); POTASSIUM 3.6 mmol/L (3.5-5.1)
[2020-03-06] MEDS ORDERED: SODIUM CHLORIDE 250 ML IV PRN (09:10)
[2020-03-06] MEDS ORDERED: ALTEPLASE 2 MG VIAL NR ONE ×2 (09:11→09:25)
[2020-03-06] MEDS: SEVELAMER CARBONATE 800 MG TAB (FP) PO SCH ×3 (09:13→16:54)
[2020-03-06] MEDS: LOSARTAN POTASSIUM 50 MG TABLET PO SCH (09:14)
[2020-03-06] MEDS: GABAPENTIN 300 MG CAPSULE PO SCH (09:14)
[2020-03-06] MEDS: FOLIC ACID 1 MG TABLET (FP) PO SCH (09:14)
[2020-03-06] MEDS: HEPARIN NA (PORCINE) 5,000 UNITS/ML 1ML VIAL SQ SCH (09:14)
[2020-03-06] MEDS: PANTOPRAZOLE 40 MG TABLET PO SCH (09:15)
[2020-03-06] MEDS: PARoxetine HCL 10 MG TABLET PO SCH (09:15)
[2020-03-06] MEDS: amLODIPine BESYLATE 5 MG TABLET (FP) PO SCH (09:15)
[2020-03-06] MEDS: BUDESONIDE/FORMETEROL FUMARATE 80/4.5 mcg INHALER IH SCH (09:16)
[2020-03-06] MEDS: DORZOLAMIDE 2% HCL OPHTHALMIC SOLUTION 10 ML BOTTLE OU SCH (09:16)
[2020-03-06] MEDS: TIMOLOL 0.5% OPHTHALMIC SOL 5 ML BOTTLE OU SCH (09:18)
[2020-03-06] MEDS: oxyCODONE HCL 5 MG TABLET PO PRN (12:08)
--- NOTE | 2020-03-06 12:57 | PN ---
Progress Note, Physician History of Present Illness: Seen and examined at the bedside awake and alert pt denies any pain, shortness of breath, fever or chills no overt vaginal bleeding, had some spotting has left chest wall/shoulder pain where her Chemo-catheter was - Current Medication List Current Medications: Active Medications Albuterol Sulfate (Ventolin 0.083% Nebulizer Soln -) 1 amp NEB Q6H PRN PRN Reason: SHORTNESS OF BREATH Amlodipine Besylate (Norvasc -) 5 mg PO DAILY [facility] Last Admin: 03/06/20 09:15 Dose: Not Given Documented by: Budesonide/Formoterol Fumarate (Symbicort 80/4.5mcg -) 2 puff IH BID [facility] Last Admin: 03/06/20 09:16 Dose: 2 puff Documented by: Docusate Sodium (Colace -) 100 mg PO BID PRN PRN Reason: CONSTIPATION Dorzolamide HCl (Trusopt 2%) 1 drop OU BID [facility] Last Admin: 03/06/20 09:16 Dose: 1 drop Documented by: Folic Acid (Folic Acid -) 1 mg PO DAILY [facility] Last Admin: 03/06/20 09:14 Dose: 1 mg Documented by: Gabapentin (Neurontin -) 300 mg PO BID [facility] Last Admin: 03/06/20 09:14 Dose: 300 mg Documented by: Heparin Sodium (Porcine) (Heparin -) 5,000 unit SQ BID [facility] Last Admin: 03/06/20 09:14 Dose: 5,000 unit Documented by: Sodium Chloride (Normal Saline -) 250 mls @ 3,000 mls/hr IV PRN PRN PRN Reason: Hypotension during Dialysis Stop: 03/07/20 09:10 Insulin Aspart (Novolog Vial Sliding Scale -) 1 vial SQ ACHS [facility]; Protocol Last Admin: 03/06/20 12:10 Dose: 2 units Documented by: Loperamide HCl (Imodium -) 2 mg PO Q6H PRN PRN Reason: DIARRHEA Losartan Potassium (Cozaar -) 50 mg PO DAILY [facility] Last Admin: 03/06/20 09:14 Dose: Not Given Documented by: Montelukast Sodium (Singulair -) 10 mg PO HS [facility] Last Admin: 03/05/20 21:03 Dose: 10 mg Documented by: Oxycodone HCl (Roxicodone -) 5 mg PO Q6H PRN PRN Reason: PAIN LEVEL 7 - 10 Last Admin: 03/06/20 12:08 Dose: 5 mg Documented by: Pantoprazole Sodium (Protonix -) 40 mg PO DAILY [facility] Last Admin: 03/06/20 09:15 Dose: 40 mg Documented by: Paroxetine HCl (Paxil -) 10 mg PO DAILY [facility] Last Admin: 03/06/20 09:15 Dose: 10 mg Documented by: Polyethylene Glycol (Miralax (For Daily Use) -) 17 gm PO DAILY PRN PRN Reason: CONSTIPATION Sevelamer Carbonate (Renvela -) 1,600 mg PO TIDCM [facility] Last Admin: 03/06/20 12:12 Dose: 1,600 mg Documented by: Timolol Maleate (Timoptic 0.5%) 1 drop OU BID [facility] Last Admin: 03/06/20 09:18 Dose: 1 drop Documented by: - Objective Vital Signs: Vital Signs Temperature 98.4 F 03/06/20 12:00 Pulse Rate 92 H 03/06/20 12:00 Respiratory Rate 19 03/06/20 12:00 Blood Pressure 143/81 03/06/20 12:00 O2 Sat by Pulse Oximetry (%) 99 03/06/20 12:00 Constitutional: Yes: No Distress, Calm Eyes: Yes: Conjunctiva Clear HENT: Yes: Atraumatic Neck: Yes: Supple Cardiovascular: Yes: Regular Rate and Rhythm Respiratory: Yes: Regular Gastrointestinal: Yes: Soft. 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 1. Suspected Splenic infarction 2. Diarrhea 3. ESRD on HD 4. Hypertension 5. Cervical cancer 6. Bipolar disorder 7. Anemia in setting of CKD dialysis today with UF as tolerated will use cath-krista prior to dialysis off A/C due to vaginal bleeding C-diff toxin and antigen negative Blood cultures w/o growth 1.2L daily fluid restriction Continue current antihypertensives Trend H/H, no EKTA given she has cervical cancer Heme/Onc follow up. Discharge planning as per primary team Thank you Brian Dahl DO
--- NOTE | 2020-03-06 13:51 | PN ---
Teaching Attending Note Name of Resident: Zion Conner ATTENDING PHYSICIAN STATEMENT I saw and evaluated the patient. I reviewed the resident's note and discussed the case with the resident. I agree with the resident's findings and plan as documented. SUBJECTIVE: Seen and examined at bedside. Condition stable. 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 #Splenic infarct Likely in the setting of hypercoagulable state secondary to malignancy Surgery and hematology on board: We will discuss Was on heparin drip with plan to switch to Coumadin. Was discontinued after patient developed menorrhagia #menorrahgia:resolved -in settign of heparin drip -AC discontinued -trend cbc -transfuse to hgb>7 #L breast hematoma concern that it is due to the dislodging of pt's chemoport -US negative -CXR does not mention dislodged port. Will discuss with heme onc -IR consulted for port study #acute blood loss anemia on top of anemia of chronic disease -trend cbc -transfuse to hgb>7 #Stage IIIb cervical cancer On carboplatin and radiotherapy Hematology/unk on board: Appreciate recommendations #Thrombocytopenia In the setting of chemotherapy Continue to monitor #ESRD on HD -nephrology on board: appreciate recs
--- NOTE | 2020-03-06 18:51 | PN.HO ---
Progress Note (short form) - Note Progress Note: S: Doing well. Minor spotting O: Last Vital Signs Temp Pulse Resp BP Pulse Ox 98.4 F 93 H 20 131/76 99 03/06/20 13:45 03/06/20 13:45 03/06/20 13:45 03/06/20 13:45 03/06/20 13:45 Gen: NAD HEENT: MMM CVS: S1, S2 Lungs: CTAB (Anterior) Abdomen: Mild tenderness Ext: No edema Current Medications Generic Name Dose Route Start Last Admin Trade Name Freq PRN Reason Stop Dose Admin Albuterol Sulfate 1 amp 03/02/20 08:52 Ventolin 0.083% Nebulizer Soln - NEB Q6H PRN SHORTNESS OF BREATH Amlodipine Besylate 5 mg 02/29/20 21:15 03/04/20 09:56 Norvasc - PO 5 mg DAILY UMBERTO Administration Budesonide/Formoterol Fumarate 2 puff 02/29/20 22:00 03/04/20 09:57 Symbicort 80/4.5mcg - IH 2 puff BID UMBERTO Administration Docusate Sodium 100 mg 03/03/20 09:23 Colace - PO BID PRN CONSTIPATION Dorzolamide HCl 1 drop 02/29/20 22:00 03/04/20 09:57 Trusopt 2% OU 1 drop BID UMBERTO Administration Folic Acid 1 mg 03/01/20 10:00 03/04/20 09:56 Folic Acid - PO 1 mg DAILY UMBERTO Administration Gabapentin 300 mg 02/29/20 22:00 03/04/20 09:56 Neurontin - PO 300 mg BID UMBERTO Administration Heparin Sodium (Porcine) 5,000 unit 03/03/20 22:00 03/04/20 09:57 Heparin - SQ 5,000 unit BID UMBERTO Administration Sodium Chloride 250 mls @ 3,000 mls/hr 03/02/20 16:39 Normal Saline - IV 03/03/20 16:40 PRN PRN Hypotension during Dialysis Insulin Aspart 1 vial 03/02/20 16:30 03/04/20 16:31 Novolog Vial Sliding Scale - SQ Not Given ACHS UMBERTO Protocol Loperamide HCl 2 mg 02/29/20 20:08 Imodium - PO Q6H PRN DIARRHEA Losartan Potassium 50 mg 03/01/20 10:00 03/04/20 09:56 Cozaar - PO 50 mg DAILY UMBERTO Administration Montelukast Sodium 10 mg 02/29/20 22:00 03/03/20 21:24 Singulair - PO 10 mg HS UMBERTO Administration Oxycodone HCl 5 mg 03/04/20 15:58 03/04/20 16:32 Roxicodone - PO 5 mg Q6H PRN Administration PAIN LEVEL 7 - 10 Pantoprazole Sodium 40 mg 03/01/20 10:00 03/04/20 09:56 Protonix - PO 40 mg DAILY UMBERTO Administration Paroxetine HCl 10 mg 03/01/20 10:00 03/04/20 09:56 Paxil - PO 10 mg DAILY UMBERTO Administration Polyethylene Glycol 17 gm 03/03/20 09:23 Miralax (For Daily Use) - PO DAILY PRN CONSTIPATION Sevelamer Carbonate 1,600 mg 03/02/20 16:29 03/04/20 16:31 Renvela - PO 1,600 mg TIDCM UMBERTO Administration Timolol Maleate 1 drop 02/29/20 22:00 03/04/20 09:57 Timoptic 0.5% OU 1 drop BID UMBERTO Administration Assessment and Plan: 40 y/o lady with locally advanced cervical cancer wih paraaortic fredi involvement on PET , getting concurrent carboplatin/RT comes in with episode of dizziness, HTN at dialysis on 02/29/20. Noted to have splenic hypodensity suspicious for splenic infarct on CT scan abdomen 1) Splenic infarct. Started on Heparin gtt but stopped due to vaginal bleeding 2) Vaginal bleeding improving 3) Daily CBC and transfuse to keep hemoglobin above 7. 4) Zev nephrology team help on HD. 5) Locally Advanced Cervical CA with paraaortic fredi involvement on PET (Stage IIIC2r (radiology). FIGO 2018). Treated with concurrent Carboplatin/XRT (6X) (Last Carboplatin dose 02/29/20). 6) Port appears in good position per XR. 7) Will continue to follow with Dr. Dolan outpatient when discharged
--- NOTE | 2020-03-06 22:46 | PN ---
Physical Exam: SUBJECTIVE: Patient seen and examined at bedside. No acute events overnight. OBJECTIVE: Vital Signs Period Temp Pulse Resp BP Sys/Farah Pulse Ox Last 24 Hr 98.4 F-98.5 F 92-97 18-20 125-143/71-81 98-99 GENERAL: NAD HEAD: Atraumatic/Normocephalic EYES: EOMI Sclera Clear . CHEST: ecchymosis present extending toward axilla LUNGS: Decreased breath sounds. HEART: RRR No MRG S1S2 ABDOMEN: Suprapubic tenderness. EXTREMITIES: No CCE Laboratory Results - last 24 hr 03/02/20 03/05/20 03/06/20 11:30 15:30 05:50 WBC RBC Hgb Hct MCV MCH MCHC RDW Plt Count MPV PTT (Actin FS) Sodium Potassium Chloride Carbon Dioxide Anion Gap BUN Creatinine Est GFR (CKD-EPI)AfAm Est GFR (CKD-EPI)NonAf POC Glucometer 247 Random Glucose Calcium Phosphorus Magnesium Ur Random Creatinine 40.0 Urine Collection Time 24 Urine Total Volume 2300 Urine Creatinine 920.0 Blood Type O POSITIVE Antibody Screen Negative Crossmatch See Detail 03/06/20 03/06/20 03/06/20 07:14 07:14 07:14 WBC 3.5 L RBC 2.66 L Hgb 8.2 L Hct 23.5 L MCV 88.4 MCH 30.9 MCHC 34.9 RDW 16.3 H Plt Count 72 L MPV 8.2 PTT (Actin FS) 24.8 L Sodium 140 Potassium 3.6 Chloride 108 H Carbon Dioxide 24 Anion Gap 8 BUN 50.0 H Creatinine 5.0 H Est GFR (CKD-EPI)AfAm 11.74 Est GFR (CKD-EPI)NonAf 10.13 POC Glucometer Random Glucose 218 H Calcium 7.4 L Phosphorus 4.0 Magnesium 1.6 L Ur Random Creatinine Urine Collection Time Urine Total Volume Urine Creatinine Blood Type Antibody Screen Crossmatch 03/06/20 03/06/20 11:28 16:50 WBC RBC Hgb Hct MCV MCH MCHC RDW Plt Count MPV PTT (Actin FS) Sodium Potassium Chloride Carbon Dioxide Anion Gap BUN Creatinine Est GFR (CKD-EPI)AfAm Est GFR (CKD-EPI)NonAf POC Glucometer 198 186 Random Glucose Calcium Phosphorus Magnesium Ur Random Creatinine Urine Collection Time Urine Total Volume Urine Creatinine Blood Type Antibody Screen Crossmatch Active Medications Generic Name Dose Route Start Last Admin Trade Name Freq PRN Reason Stop Dose Admin Albuterol Sulfate 1 amp 03/02/20 08:52 Ventolin 0.083% Nebulizer Soln - NEB Q6H PRN SHORTNESS OF BREATH Amlodipine Besylate 5 mg 02/29/20 21:15 03/06/20 09:15 Norvasc - PO Not Given DAILY UMBERTO Budesonide/Formoterol Fumarate 2 puff 02/29/20 22:00 03/06/20 09:16 Symbicort 80/4.5mcg - IH 2 puff BID UMBERTO Administration Docusate Sodium 100 mg 03/03/20 09:23 Colace - PO BID PRN CONSTIPATION Dorzolamide HCl 1 drop 02/29/20 22:00 03/06/20 09:16 Trusopt 2% OU 1 drop BID UMBERTO Administration Folic Acid 1 mg 03/01/20 10:00 03/06/20 09:14 Folic Acid - PO 1 mg DAILY UMBERTO Administration Gabapentin 300 mg 02/29/20 22:00 03/06/20 09:14 Neurontin - PO 300 mg BID UMBERTO Administration Heparin Sodium (Porcine) 5,000 unit 03/03/20 22:00 03/06/20 09:14 Heparin - SQ 5,000 unit BID UMBERTO Administration Sodium Chloride 250 mls @ 3,000 mls/hr 03/06/20 09:10 Normal Saline - IV 03/07/20 09:10 PRN PRN Hypotension during Dialysis Insulin Aspart 1 vial 03/02/20 16:30 03/06/20 16:53 Novolog Vial Sliding Scale - SQ 2 units ACHS UMBERTO Administration Protocol Loperamide HCl 2 mg 02/29/20 20:08 Imodium - PO Q6H PRN DIARRHEA Losartan Potassium 50 mg 03/01/20 10:00 03/06/20 09:14 Cozaar - PO Not Given DAILY UMBERTO Montelukast Sodium 10 mg 02/29/20 22:00 03/05/20 21:03 Singulair - PO 10 mg HS UMBERTO Administration Oxycodone HCl 5 mg 03/04/20 15:58 03/06/20 12:08 Roxicodone - PO 5 mg Q6H PRN Administration PAIN LEVEL 7 - 10 Pantoprazole Sodium 40 mg 03/01/20 10:00 03/06/20 09:15 Protonix - PO 40 mg DAILY UMBERTO Administration Paroxetine HCl 10 mg 03/01/20 10:00 03/06/20 09:15 Paxil - PO 10 mg DAILY UMBERTO Administration Polyethylene Glycol 17 gm 03/03/20 09:23 Miralax (For Daily Use) - PO DAILY PRN CONSTIPATION Sevelamer Carbonate 1,600 mg 03/02/20 16:29 03/06/20 16:54 Renvela - PO 1,600 mg TIDCM UMBERTO Administration Timolol Maleate 1 drop 02/29/20 22:00 03/06/20 09:18 Timoptic 0.5% OU 1 drop BID UMBERTO Administration ASSESSMENT/PLAN: 40-year-old female past medical history of ESRD, stage IIIb cervical cancer on carboplatin and radiotherapy, DM 1, bipolar/depression/anxiety, asthma admitted From hemodialysis for labile blood pressure and diarrhea, 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 #Splenic infarct Heparin gtt stopped in light of heavy menstrual bleeding. Heme on board. Appreciate recs. #Acute blood loss anemia with concomitant AOC - PRBC transfusion if Hgb < 7 per heme To follow heme-onc as an outpatient #Left Breast Ecchymosis -U/S unremarkable for any hematoma or acute pathology. #Stage IIIb cervical cancer On carboplatin and radiotherapy. No plan for chemo infusion this week. (6X) (Last Carboplatin dose 02/29/20 - Discussed possible port study with I.R to assess functionality. Per I.R, CXR would suffice to determine dislodgment. Spoke with Dr Motta today, port appears to be in correct place-tip of SVC. Heme/onc on board: Appreciate recommendations -Has double jj stent for right sided hydroureteronephrosis 2/2 compression from cancer. Need to have stent exchange end of this month per . Per Heme/Onc, stent should be replaced after patient completes her radiation treatment. Patient has 4 more treatments. F/u Urology as outpatient. #Thrombocytopenia In the setting of chemotherapy Continue to monitor #HTN Continue Losartan, Norvasc #Depression Continue Paxil #DM -ISS #ESRD on HD -nephrology on board: appreciate recs FEN No Fluids Monitor electrolytes Renal/Sodium Diet DVT ppx; None in light of anemia #Dispo; D/C tomorrow Visit type - Emergency Visit Emergency Visit: Yes ED Registration Date: 02/28/20 Care time: The patient presented to the Emergency Department on the above date and was hospitalized for further evaluation of their emergent condition. - New Patient This patient is new to me today: No - Critical Care Critical Care patient: No - Discharge Referral Referred to [facility] Med P.C.: No ATTENDING PHYSICIAN STATEMENT I saw and evaluated the patient. I reviewed the resident's note and discussed the case with the resident. I agree with the resident's findings and plan as documented. SUBJECTIVE: OBJECTIVE: ASSESSMENT AND PLAN:
[2020-03-07] MEDS: HEPARIN NA (PORCINE) 5,000 UNITS/ML 1ML VIAL SQ SCH ×2 (00:24→09:20)
[2020-03-07] MEDS: MONTELUKAST NA 10 MG TABLET PO SCH (00:25)
[2020-03-07] MEDS: INSULIN SLIDING SCALE (NOVOLOG) 1 VIAL SQ SCH ×3 (00:25→11:17)
[2020-03-07] MEDS: GABAPENTIN 300 MG CAPSULE PO SCH ×2 (00:26→09:21)
[2020-03-07] MEDS: BUDESONIDE/FORMETEROL FUMARATE 80/4.5 mcg INHALER IH SCH ×2 (00:26→09:21)
[2020-03-07] MEDS: TIMOLOL 0.5% OPHTHALMIC SOL 5 ML BOTTLE OU SCH ×2 (00:27→09:22)
[2020-03-07] MEDS: DORZOLAMIDE 2% HCL OPHTHALMIC SOLUTION 10 ML BOTTLE OU SCH ×2 (00:27→09:22)
[2020-03-07] MEDS: SEVELAMER CARBONATE 800 MG TAB (FP) PO SCH ×2 (08:38→12:19)
[2020-03-07] MEDS: oxyCODONE HCL 5 MG TABLET PO PRN (08:38)
[2020-03-07] MEDS: LOSARTAN POTASSIUM 50 MG TABLET PO SCH (09:20)
[2020-03-07] MEDS: PARoxetine HCL 10 MG TABLET PO SCH (09:20)
[2020-03-07] MEDS: FOLIC ACID 1 MG TABLET (FP) PO SCH (09:20)
[2020-03-07] MEDS: amLODIPine BESYLATE 5 MG TABLET (FP) PO SCH (09:20)
[2020-03-07] MEDS: PANTOPRAZOLE 40 MG TABLET PO SCH (09:20)
[2020-03-07 11:27] LABS: HEMATOCRIT 24.6 % (32.4-45.2); HEMOGLOBIN 8.3 GM/dL (10.7-15.3); MCH 29.4 pg (25.7-33.7); MCHC 33.6 g/dl (32.0-36.0); MEAN CELL VOLUME 87.6 fl (80-96); PLATELET COUNT 85 K/MM3 (134-434); RBC 2.81 M/mm3 (3.60-5.2); RDW 16.9 % (11.6-15.6); WHITE BLOOD COUNT 4.2 K/mm3 (4.0-10.0)
[2020-03-07 11:47] LABS: BLOOD UREA NITROGEN 28.5 mg/dL (7-18); CREATININE 3.4 mg/dL (0.55-1.3); MAGNESIUM 1.5 mg/dL (1.8-2.4); PHOSPHOROUS 2.5 mg/dL (2.5-4.9); POTASSIUM 3.4 mmol/L (3.5-5.1)
--- NOTE | 2020-03-07 11:58 | PN ---
Progress Note, Physician History of Present Illness: Seen and examined at the bedside awake and alert pt denies any pain, shortness of breath, fever or chills s/p dialysis yesterday, catheter worked well. has left chest wall/shoulder pain where her Chemo-catheter is - Current Medication List Current Medications: Active Medications Amlodipine Besylate (Norvasc -) 5 mg PO DAILY [facility] Last Admin: 03/07/20 09:20 Dose: 5 mg Documented by: Budesonide/Formoterol Fumarate (Symbicort 80/4.5mcg -) 2 puff IH BID [facility] Last Admin: 03/07/20 09:21 Dose: 2 puff Documented by: Docusate Sodium (Colace -) 100 mg PO BID PRN PRN Reason: CONSTIPATION Dorzolamide HCl (Trusopt 2%) 1 drop OU BID [facility] Last Admin: 03/07/20 09:22 Dose: 1 drop Documented by: Folic Acid (Folic Acid -) 1 mg PO DAILY [facility] Last Admin: 03/07/20 09:20 Dose: 1 mg Documented by: Gabapentin (Neurontin -) 300 mg PO BID [facility] Last Admin: 03/07/20 09:21 Dose: 300 mg Documented by: Heparin Sodium (Porcine) (Heparin -) 5,000 unit SQ BID [facility] Last Admin: 03/07/20 09:20 Dose: 5,000 unit Documented by: Insulin Aspart (Novolog Vial Sliding Scale -) 1 vial SQ [facility]; Protocol Last Admin: 03/07/20 11:17 Dose: 4 units Documented by: Loperamide HCl (Imodium -) 2 mg PO Q6H PRN PRN Reason: DIARRHEA Losartan Potassium (Cozaar -) 50 mg PO DAILY [facility] Last Admin: 03/07/20 09:20 Dose: 50 mg Documented by: Montelukast Sodium (Singulair -) 10 mg PO HS [facility] Last Admin: 03/07/20 00:25 Dose: 10 mg Documented by: Oxycodone HCl (Roxicodone -) 5 mg PO Q6H PRN PRN Reason: PAIN LEVEL 7 - 10 Last Admin: 03/07/20 08:38 Dose: 5 mg Documented by: Pantoprazole Sodium (Protonix -) 40 mg PO DAILY [facility] Last Admin: 03/07/20 09:20 Dose: 40 mg Documented by: Paroxetine HCl (Paxil -) 10 mg PO DAILY [facility] Last Admin: 03/07/20 09:20 Dose: 10 mg Documented by: Polyethylene Glycol (Miralax (For Daily Use) -) 17 gm PO DAILY PRN PRN Reason: CONSTIPATION Sevelamer Carbonate (Renvela -) 1,600 mg PO TIDCM [facility] Last Admin: 03/07/20 08:38 Dose: 1,600 mg Documented by: Timolol Maleate (Timoptic 0.5%) 1 drop OU BID [facility] Last Admin: 03/07/20 09:22 Dose: 1 drop Documented by: - Objective Vital Signs: Vital Signs Temperature 99.3 F 03/07/20 06:00 Pulse Rate 86 03/07/20 06:00 Respiratory Rate 18 03/07/20 06:00 Blood Pressure 114/62 03/07/20 06:00 O2 Sat by Pulse Oximetry (%) 99 03/07/20 06:00 Constitutional: Yes: No Distress, Calm HENT: Yes: Atraumatic Neck: Yes: Supple Cardiovascular: Yes: Regular Rate and Rhythm Respiratory: Yes: Regular Gastrointestinal: Yes: Soft Extremities: No: Cyanosis Edema: No Labs: CBC, BMP 03/07/20 10:19 03/07/20 10:19 INR, PTT INR 0.97 (0.83-1.09) 03/01/20 12:00 Assessment/Plan 40 year old woman with 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 1. Suspected Splenic infarction 2. Diarrhea 3. ESRD on HD 4. Hypertension 5. Cervical cancer 6. Bipolar disorder 7. Anemia in setting of CKD s/p dialysis yesterday, no acute need for dialysis today dialysis catheter worked well off A/C due to vaginal bleeding C-diff toxin and antigen negative Blood cultures w/o growth 1.2L daily fluid restriction Continue current antihypertensives Trend H/H, no EKTA given she has cervical cancer Heme/Onc follow up. Discharge planning as per primary team Thank you Brian Dahl DO
[2020-03-07] MEDS ORDERED: SODIUM CHLORIDE 250 ML IV PRN (11:59)
--- NOTE | 2020-03-07 12:41 | PN ---
Teaching Attending Note Name of Resident: John Dailey ATTENDING PHYSICIAN STATEMENT I saw and evaluated the patient. I reviewed the resident's note and discussed the case with the resident. I agree with the resident's findings and plan as documented. SUBJECTIVE: Seen and examined at bedside. Patient is medically cleared for discharge. She will be sent home on her home medications and will follow-up with oncology as an outpatient for further discussions about anticoagulation as well as further treatment of her cancer OBJECTIVE Last Vital Signs Temp Pulse Resp BP Pulse Ox 98.6 F 89 19 131/90 97 03/07/20 12:00 03/07/20 12:00 03/07/20 12:00 03/07/20 12:00 03/07/20 12:00 PE: Per resident note Labs/Imaging: reviewed ASSESSMENT/PLAN 40-year-old female past medical history of ESRD, stage IIIb cervical cancer on carboplatin and radiotherapy, DM 1, bipolar/depression/anxiety, asthma admitted From hemodialysis for labile blood pressure and diarrhea, 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 Patient was placed on a heparin drip but developed severe menorrhagia as well as left axillary/breast bruisng. There was concern that the patient's Chemo-Port may have been dislodged. Imaging showed the port in the correct place, and bleeding resolved with discontinuation of the heparin drip. Patient is medically cleared for discharge. She will be sent home on her home medications will follow-up with heme-onc for further management of her cervical cancer as well as for her splenic infarct and possible future anticoagulation.
--- NOTE | 2020-03-07 12:49 | DS ---
Physical Exam: SUBJECTIVE: Patient seen and examined. Pt. endorses pain around the chemo port that is the same as yesterday. OBJECTIVE: Vital Signs Period Temp Pulse Resp BP Sys/Farah Pulse Ox Last 24 Hr 98.1 F-99.3 F 66-96 18-20 94-142/60-90 95-99 PHYSICAL EXAM GENERAL: Mild distress 2/2 pain and worsens with movement of left arm. HEAD: Atraumatic/Normocephalic EYES: EOMI Sclera Clear . CHEST: ecchymosis present extending toward axilla LUNGS: No crackles or wheezing. decreased BS 2/2 body habitus HEART: RRR No MRG S1S2 ABDOMEN: Suprapubic tenderness. EXTREMITIES: No Calf tenderness or edema, 2+ DPP LABS Laboratory Results - last 24 hr 03/02/20 03/05/20 03/06/20 11:30 15:30 16:50 WBC RBC Hgb Hct MCV MCH MCHC RDW Plt Count MPV Sodium Potassium Chloride Carbon Dioxide Anion Gap BUN Creatinine Est GFR (CKD-EPI)AfAm Est GFR (CKD-EPI)NonAf POC Glucometer 186 Random Glucose Calcium Phosphorus Magnesium Ur Random Creatinine 40.0 Urine Collection Time 24 Urine Total Volume 2300 Urine Creatinine 920.0 Stool Occult Blood Blood Type O POSITIVE Antibody Screen Negative Crossmatch See Detail 03/07/20 03/07/20 03/07/20 00:06 01:00 05:31 WBC RBC Hgb Hct MCV MCH MCHC RDW Plt Count MPV Sodium Potassium Chloride Carbon Dioxide Anion Gap BUN Creatinine Est GFR (CKD-EPI)AfAm Est GFR (CKD-EPI)NonAf POC Glucometer 199 216 Random Glucose Calcium Phosphorus Magnesium Ur Random Creatinine Urine Collection Time Urine Total Volume Urine Creatinine Stool Occult Blood Negative Blood Type Antibody Screen Crossmatch 03/07/20 03/07/20 03/07/20 10:19 10:19 11:16 WBC 4.2 RBC 2.81 L Hgb 8.3 L Hct 24.6 L MCV 87.6 MCH 29.4 MCHC 33.6 RDW 16.9 H Plt Count 85 L MPV 8.0 Sodium 140 Potassium 3.4 L Chloride 103 Carbon Dioxide 30 Anion Gap 7 L BUN 28.5 H Creatinine 3.4 H Est GFR (CKD-EPI)AfAm 18.72 Est GFR (CKD-EPI)NonAf 16.15 POC Glucometer 233 Random Glucose 192 H Calcium 8.0 L Phosphorus 2.5 Magnesium 1.5 L Ur Random Creatinine Urine Collection Time Urine Total Volume Urine Creatinine Stool Occult Blood Blood Type Antibody Screen Crossmatch HOSPITAL COURSE: Date of Admission:02/28/20 Date of Discharge: 03/07/20 Pt. is a 40 y.o. F w/ PMHx. 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 Pt. was started on Heparin Gtt however developed vaginal bleeding and bleeding from chemo port. US of the port was negative for hematoma. CXR confirmed appropriate port placement. Bleeding resoled with discontinuation of Heparion and Pt. was transfused 1 unit pRBCs. Hospital follow up and medication adjustments as detailed below. Pt. was seen by Nephrology for ESRD management, Heme/Onc., Surgery and wound care for final assessment of the bruise around the port. hospital course discussed and agreed upon with Pt. medical staff and family. Minutes to complete discharge: 35 Discharge Summary Problems reviewed: Yes Reason For Visit: END STAGE RENAL DISEASE Current Active Problems Diarrhea (Acute) Condition: Stable - Instructions Diet, Activity, Other Instructions: You came in for diarrhea and dizziness after dialysis. We imaged your abdomen and found that your had an infarct (blocked blood vessel causing tissue ) in your spleen. We started you on Heparin(blood thinner) but you developed bleeding in your vagina and from your chemo port. We stopped the blood thinners. We also saw on abdominal imaging that you have an enlarged liver and and enlarged spleen as well as chronic blood vessel changes. We were concerned that your port was dislodged however on imaging we saw that it was in the correct place and that there was no blood collection at the site of bruising. You were seen by your Angiography Nurse, your Case Repairer, surgery and Interventional radiology. You were found to be anemic and were transfused 1 unit of blood. We tested your stool for signs of infection but it was negative. You blood cultures from your port were also negative. Please follow up with your Oncologist and Radiation oncologist for continuing your Radiation therapy. Please continue taking your medications as prescribed. Please follow up with your Primary Care Physician within 1 week. Please follow up with your Case Repairer/Oncologist within 1 week. PLEASE discuss starting Blood thinners at this time as you are at increased risk for forming clots. Please follow up with your Angiography Nurse within 1 week. Please return to the ED if you are having any concerning symptoms. Referrals: Laxmi Read NP [Primary Care Provider] - 1 Week Kelsi Perla MD [Staff Physician] - 03/19/20 1:30 pm (If you need to reach the Dr. Dolan's office, please call: [phone]) Brian Dahl MD [Staff Physician] - 1 Week (No appointment needed. ) Disposition: HOME - Home Medications Comprehensive Discharge Medication List: Ambulatory Orders Albuterol 0.083% Nebulizer Sarina [Ventolin 0.083% Nebulizer Soln -] 1 neb NEB Q6H PRN 10/06/17 Budesonide/Formeterol Fumarate [SYMBICORT 80/4.5mcg -] 2 puff IH BID 10/06/17 Insulin Glargine,Hum.rec.anlog [Lantus] 50 unit SQ BID 10/06/17 Insulin Lispro [Humalog] 30 unit SQ TID 04/18/18 Esomeprazole Magnesium [Nexium 24Hr] 40 mg PO DAILY 05/28/18 Gabapentin [Neurontin] 100 mg PO BID 10/09/19 Sevelamer Carbonate [Renvela -] 800 mg PO TIDCM #90 tab 10/12/19 Acetaminophen [Tylenol .Extra-Strength -] 2 tab PO PRN 01/16/20 Oxycodone HCl [Roxicodone] 5 mg PO ASDIR 02/03/20 Ferrous Sulfate [Feosol] 325 mg PO DAILY 02/06/20 Folic Acid - 1 mg PO DAILY #30 tablet 02/06/20 Losartan Potassium 50 mg PO DAILY 02/06/20 Montelukast Sodium [Singulair] 10 mg PO DAILY 02/06/20 Omeprazole 40 mg PO DAILY 02/28/20 Ondansetron [Zuplenz] 8 mg PO BID 02/28/20 Prochlorperazine Maleate [Compazine] 10 mg PO Q8H 02/28/20 Sodium Bicarbonate - 650 mg PO TID 02/28/20 Dorzolamide HCl/Timolol Maleat [Cosopt Eye Drops] 1 drop OP BID 02/29/20 Dulaglutide [Trulicity] 1 unit SQ WEEKLY 02/29/20 Gabapentin 1 tab PO TID 02/29/20 Paroxetine HCl 1 tab PO DAILY 02/29/20 This patient is new to me today: Yes Date on this admission: 03/07/20 Emergency Visit: Yes ED Registration Date: 02/28/20 Care time: The patient presented to the Emergency Department on the above date and was hospitalized for further evaluation of their emergent condition. Critical Care patient: No - Discharge Referral Referred to [facility] Med P.C.: No ATTENDING PHYSICIAN STATEMENT I saw and evaluated the patient. I reviewed the resident's note and discussed the case with the resident. I agree with the resident's findings and plan as documented. SUBJECTIVE: OBJECTIVE: ASSESSMENT AND PLAN:
[2020-03-07 13:38] VITALS: BP 157/85; PULSE 97; TEMP 98
[2020-03-07] MEDS ORDERED: MAGNESIUM 2GM/50ML STERILE WATER IVPB IVPB ONE (14:38)
[2020-03-07] MEDS ORDERED: MAGNESIUM OXIDE 400 MG TABLET (FP) PO ONE (15:47)
== END 2020-03-07 16:52 | disposition home or self-care (01) | DRG 663 ==
LOC: JER 15:22 → JERBED 22:59 → J5S 02-29 01:31 → J7W 02-29 18:37
PROVIDERS: ADMIT Hospitalist; ATTEND Internal Medicine
PROC: 5A1D70Z Performance of Urinary Filtration, Intermittent, Less than 6 Hours Per Day (ICD-10-PCS; principal; 2020-03-01)
PROC: 30233N1 Transfusion of Nonautologous Red Blood Cells into Peripheral Vein, Percutaneous Approach (ICD-10-PCS; 2020-03-02)
DX: D73.5 Infarction of spleen (principal); N18.6 End stage renal disease; E10.22 Type 1 diabetes mellitus with diabetic chronic kidney disease; I12.0 Hypertensive chronic kidney disease with stage 5 chronic kidney disease or end stage renal disease; Q61.2 Polycystic kidney, adult type; E83.42 Hypomagnesemia; D62 Acute posthemorrhagic anemia; D69.59 Other secondary thrombocytopenia; R16.0 Hepatomegaly, not elsewhere classified; N92.0 Excessive and frequent menstruation with regular cycle; E87.6 Hypokalemia; Z99.2 Dependence on renal dialysis; D63.1 Anemia in chronic kidney disease; Z79.4 Long term (current) use of insulin; F31.9 Bipolar disorder, unspecified; F41.9 Anxiety disorder, unspecified; R19.7 Diarrhea, unspecified; T45.1X5A Adverse effect of antineoplastic and immunosuppressive drugs, initial encounter; K21.9 Gastro-esophageal reflux disease without esophagitis; C53.9 Malignant neoplasm of cervix uteri, unspecified; J45.909 Unspecified asthma, uncomplicated; R07.89 Other chest pain; N93.9 Abnormal uterine and vaginal bleeding, unspecified; T45.515A Adverse effect of anticoagulants, initial encounter
CPT/HCPCS: 36415; 36430; 71045-TC-FY; 74176-TC; 76604-TC; 76705-TC; 80048; 80053; 82272; 82550; 82575; 82962; 83605; 83690; 83735; 84100; 84484; 84703; 85025; 85027; 85610; 85730; 86850; 86900; 86901; 86922; 87040; 87045; 87046; 87177; 87209; 87324; 87449; 93005; 93010; 99285-25; C9803; J0131; J1644; J2469; J2997; P9058; U0003

== ENCOUNTER 2020-05-01 12:54 | Inpatient (IN) | payer OTHER ==
[2020-05-01 14:59] LABS: POTASSIUM 4.9 mmol/L (3.5-5.1)
[2020-05-01 15:02] LABS: CALCIUM 8.4 mg/dL (8.5-10.1)
[2020-05-01 15:03] LABS: ALBUMIN 2.5 g/dl (3.4-5.0); BLOOD UREA NITROGEN 27.8 mg/dL (7-18)
[2020-05-01 15:06] LABS: CREATININE 5.6 mg/dL (0.55-1.3)
[2020-05-01 15:07] LABS: BILIRUBIN,TOTAL 0.4 mg/dL (0.2-1); TOT PROT 6.5 g/dl (6.4-8.2)
[2020-05-01 15:54] LABS: BASO % 0.7 % (0-2.0); EOS % 1.9 % (0-4.5); HEMATOCRIT 27.1 % (32.4-45.2); HEMOGLOBIN 8.8 GM/dL (10.7-15.3); LYMPH % 9.8 % (8-40); MCH 31.9 pg (25.7-33.7); MCHC 32.3 g/dl (32.0-36.0); MEAN CELL VOLUME 98.6 fl (80-96); MEAN PLT VOLUME 7.9 fl (7.5-11.1); MONO % 7.8 % (3.8-10.2); NEUT % 79.8 % (42.8-82.8); PLATELET COUNT 142 K/MM3 (134-434); RBC 2.75 M/mm3 (3.60-5.2); RDW 15.7 % (11.6-15.6); WHITE BLOOD COUNT 6.1 K/mm3 (4.0-10.0)
[2020-05-01] MEDS ORDERED: FLUORESCEIN NA 1 EA STRIP OD ONE (16:40)
[2020-05-01] MEDS ORDERED: FLUORESCEIN NA 1 EA STRIP ONE ×2 (16:43→17:42)
[2020-05-01] MEDS ORDERED: ERYTHROMYCIN 0.5% OPHTHALMIC OINTMENT 3.5 GM TUBE OS ONE (16:47)
[2020-05-01] MEDS ORDERED: ERYTHROMYCIN 0.5% OPHTHALMIC OINTMENT 3.5 GM TUBE ONE (17:42)
[2020-05-01] MEDS ORDERED: LOPERAMIDE HCL 2 MG CAPSULE PO PRN (17:50)
[2020-05-01] MEDS ORDERED: ONDANSETRON *ODT* 4 MG TABLET SL PRN (17:58)
[2020-05-01] MEDS ORDERED: PROCHLORPERAZINE MALEATE 10 MG PO SCH (18:00)
[2020-05-01] MEDS ORDERED: ACETAMINOPHEN INJECTION 100 ML IVPB ONE (21:15)
[2020-05-01] MEDS: ACETAMINOPHEN 1000 MG/100 ML VIAL (NON FORMULARY) IVPB PRN (21:18)
[2020-05-01] MEDS ORDERED: PATIENT'S OWN MEDICATION (NON-FORMULARY) (Dorzolamide Hcl/Timolol Maleat [Cosopt Eye Drops OP SCH (22:00)
[2020-05-01] MEDS ORDERED: ONDANSETRON 8 MG PO SCH (22:00)
[2020-05-01] MEDS: BUDESONIDE/FORMETEROL FUMARATE 80/4.5 mcg INHALER IH SCH (22:12)
[2020-05-01] MEDS: TIMOLOL 0.5% OPHTHALMIC SOL 5 ML BOTTLE OU SCH (22:12)
[2020-05-01] MEDS: DORZOLAMIDE 2% HCL OPHTHALMIC SOLUTION 10 ML BOTTLE OU SCH (22:12)
[2020-05-01] MEDS: CIPROFLOXACIN HCL 0.3% OPHTH 2.5ML BOTTLE OS SCH (22:12)
[2020-05-01] MEDS: SODIUM BICARBONATE 650 MG TABLET PO SCH (22:16)
[2020-05-01] MEDS: PROCHLORPERAZINE MALEATE 5 MG TABLET PO SCH (22:16)
[2020-05-01] MEDS: GABAPENTIN 300 MG CAPSULE PO SCH (22:16)
[2020-05-01] MEDS: INSULIN (LEVEMIR) 100 UNITS/ML UNITS SQ SCH (23:21)
[2020-05-01] MEDS: INSULIN SLIDING SCALE (NOVOLOG) 1 VIAL SQ SCH (23:21)
[2020-05-02 05:04] VITALS: BMI 34.3
[2020-05-02] MEDS: CIPROFLOXACIN HCL 0.3% OPHTH 2.5ML BOTTLE OS SCH ×5 (06:27→21:44)
[2020-05-02] MEDS: PROCHLORPERAZINE MALEATE 5 MG TABLET PO SCH ×3 (06:28→21:48)
[2020-05-02] MEDS: SODIUM BICARBONATE 650 MG TABLET PO SCH ×3 (06:28→21:45)
[2020-05-02] MEDS: INSULIN SLIDING SCALE (NOVOLOG) 1 VIAL SQ SCH ×4 (06:29→21:46)
[2020-05-02] MEDS: INSULIN (LEVEMIR) 100 UNITS/ML UNITS SQ SCH ×2 (06:29→21:47)
[2020-05-02] MEDS: SEVELAMER CARBONATE 800 MG TAB (FP) PO SCH ×3 (08:32→18:10)
[2020-05-02 09:35] LABS: INR 0.95 (0.83-1.09); PROTHROMBIN TIME (PATIENT) 11.7 SEC (9.7-13.0)
[2020-05-02 09:44] LABS: POTASSIUM 4.5 mmol/L (3.5-5.1)
[2020-05-02] MEDS: GABAPENTIN 300 MG CAPSULE PO SCH ×2 (09:56→21:45)
[2020-05-02 09:59] LABS: ALBUMIN 2.4 g/dl (3.4-5.0); BLOOD UREA NITROGEN 35.6 mg/dL (7-18); CALCIUM 8.3 mg/dL (8.5-10.1)
[2020-05-02] MEDS ORDERED: MONTELUKAST NA 10 MG TABLET PO SCH (10:00)
[2020-05-02] MEDS ORDERED: PARoxetine HCL 10 MG TABLET PO SCH (10:00)
[2020-05-02] MEDS ORDERED: FOLIC ACID 1 MG TABLET (FP) PO SCH (10:00)
[2020-05-02] MEDS ORDERED: PATIENT'S OWN MEDICATION (NON-FORMULARY) (Omeprazole [Omeprazole] 20 MG Tablet.Dr) PO SCH (10:00)
[2020-05-02] MEDS ORDERED: PANTOPRAZOLE 40 MG TABLET PO SCH (10:00)
[2020-05-02] MEDS ORDERED: LOSARTAN POTASSIUM 50 MG TABLET PO SCH (10:00)
[2020-05-02] MEDS ORDERED: FERROUS SO4 325 MG TABLET (FP) PO SCH (10:00)
[2020-05-02] MEDS ORDERED: PATIENT'S OWN MEDICATION (NON-FORMULARY) (Ferrous Sulfate [Feosol] 325 MG Tablet) PO SCH (10:00)
[2020-05-02] MEDS: BUDESONIDE/FORMETEROL FUMARATE 80/4.5 mcg INHALER IH SCH ×3 (10:00→22:00)
[2020-05-02 10:02] LABS: CREATININE 5.9 mg/dL (0.55-1.3)
[2020-05-02 10:04] LABS: BILIRUBIN,TOTAL 0.3 mg/dL (0.2-1); TOT PROT 6.2 g/dl (6.4-8.2)
[2020-05-02] MEDS: TIMOLOL 0.5% OPHTHALMIC SOL 5 ML BOTTLE OU SCH ×2 (10:04→21:49)
[2020-05-02] MEDS: DORZOLAMIDE 2% HCL OPHTHALMIC SOLUTION 10 ML BOTTLE OU SCH ×2 (10:40→21:50)
[2020-05-02] MEDS: ACETAMINOPHEN 1000 MG/100 ML VIAL (NON FORMULARY) IVPB PRN (12:07)
[2020-05-02] MEDS ORDERED: SODIUM CHLORIDE 250 ML IV PRN ×2 (12:08→16:22)
[2020-05-02] MEDS ORDERED: HEPARIN NA (PORCINE) 5,000 UNITS/ML 1ML VIAL ONE (13:45)
[2020-05-02] MEDS ORDERED: LIDOCAINE HCL 1%, 10 MG/ML (20ML VIAL) ONE (13:45)
[2020-05-02] MEDS ORDERED: PROPOFOL 20 ML ONE (14:10)
[2020-05-02] MEDS ORDERED: MIDAZOLAM HCL 2 MG/2 ML SINGLE DOSE VIAL ONE (14:10)
[2020-05-02] MEDS ORDERED: ceFAZolin SODIUM 1 GM VIAL ONE (15:20)
[2020-05-02] MEDS ORDERED: ONDANSETRON 4 MG/2 ML VIAL IVPUSH PRN ×2 (15:22→16:22)
[2020-05-02] MEDS ORDERED: oxyCODONE HCL 5 MG TABLET PO PRN ×2 (15:22→16:22)
[2020-05-02] MEDS ORDERED: ceFAZolin SODIUM 1 GM VIAL IVPB ONE (15:22)
[2020-05-02] MEDS ORDERED: PROMETHAZINE HCL 25 MG/1 ML VIAL IVPB PRN ×2 (15:22→16:22)
[2020-05-02] MEDS ORDERED: LIDOCAINE HCL 1%, 10 MG/ML (50 mL VIAL) INF ONE (15:26)
[2020-05-02] MEDS ORDERED: LOPERAMIDE HCL 2 MG CAPSULE PO PRN (16:22)
[2020-05-02] MEDS ORDERED: ACETAMINOPHEN 1000 MG/100 ML VIAL (NON FORMULARY) IVPB PRN (16:22)
[2020-05-02] MEDS ORDERED: ONDANSETRON *ODT* 4 MG TABLET SL PRN (16:22)
[2020-05-02] MEDS ORDERED: PT OWN MED DRAWER 7, Y5N ONE (21:14)
[2020-05-03] MEDS: INSULIN SLIDING SCALE (NOVOLOG) 1 VIAL SQ SCH ×3 (06:21→17:17)
[2020-05-03] MEDS: INSULIN (LEVEMIR) 100 UNITS/ML UNITS SQ SCH (06:22)
[2020-05-03] MEDS: SODIUM BICARBONATE 650 MG TABLET PO SCH ×2 (06:23→14:28)
[2020-05-03] MEDS: PROCHLORPERAZINE MALEATE 5 MG TABLET PO SCH ×2 (06:23→14:26)
[2020-05-03] MEDS: CIPROFLOXACIN HCL 0.3% OPHTH 2.5ML BOTTLE OS SCH ×4 (06:23→17:06)
[2020-05-03] MEDS ORDERED: FERROUS SO4 325 MG TABLET (FP) PO SCH (08:00)
[2020-05-03] MEDS: TIMOLOL 0.5% OPHTHALMIC SOL 5 ML BOTTLE OU SCH (09:29)
[2020-05-03] MEDS: BUDESONIDE/FORMETEROL FUMARATE 80/4.5 mcg INHALER IH SCH (09:30)
[2020-05-03] MEDS: SEVELAMER CARBONATE 800 MG TAB (FP) PO SCH ×3 (09:30→17:18)
[2020-05-03] MEDS: GABAPENTIN 300 MG CAPSULE PO SCH (09:30)
[2020-05-03] MEDS: DORZOLAMIDE 2% HCL OPHTHALMIC SOLUTION 10 ML BOTTLE OU SCH (09:33)
[2020-05-03] MEDS ORDERED: PARoxetine HCL 10 MG TABLET PO SCH (10:00)
[2020-05-03] MEDS ORDERED: PANTOPRAZOLE 40 MG TABLET PO SCH (10:00)
[2020-05-03] MEDS ORDERED: FOLIC ACID 1 MG TABLET (FP) PO SCH (10:00)
[2020-05-03] MEDS ORDERED: LOSARTAN POTASSIUM 50 MG TABLET PO SCH (10:00)
[2020-05-03] MEDS ORDERED: acetaZOLAMIDE 250 MG TABLET PO ONE (16:00)
[2020-05-03 18:24] VITALS: BP 117/55; PULSE 83; TEMP 98.3
[2020-05-03] MEDS ORDERED: MONTELUKAST NA 10 MG TABLET PO SCH (22:00)
== END 2020-05-03 18:05 | disposition home or self-care (01) | DRG 466 ==
LOC: JER 12:54 → JERBED 16:20 → J5S 05-02 03:28
PROVIDERS: ADMIT Family Medicine; ATTEND Internal Medicine
PROC: 02PAX3Z Removal of Infusion Device from Heart, External Approach (ICD-10-PCS; 2020-05-02)
PROC: 5A1D70Z Performance of Urinary Filtration, Intermittent, Less than 6 Hours Per Day (ICD-10-PCS; 2020-05-02)
PROC: 05HY33Z Insertion of Infusion Device into Upper Vein, Percutaneous Approach (ICD-10-PCS; principal; 2020-05-02 14:30)
DX: T82.49XA Other complication of vascular dialysis catheter, initial encounter (principal); J45.909 Unspecified asthma, uncomplicated; Y83.9 Surgical procedure, unspecified as the cause of abnormal reaction of the patient, or of later complication, without mention of misadventure at the time of the procedure; F41.8 Other specified anxiety disorders; H00.016 Hordeolum externum left eye, unspecified eyelid; E11.319 Type 2 diabetes mellitus with unspecified diabetic retinopathy without macular edema; K21.9 Gastro-esophageal reflux disease without esophagitis; H40.212 Acute angle-closure glaucoma, left eye; S05.02XA Injury of conjunctiva and corneal abrasion without foreign body, left eye, initial encounter; C53.8 Malignant neoplasm of overlapping sites of cervix uteri; Q61.3 Polycystic kidney, unspecified; N18.6 End stage renal disease; D63.1 Anemia in chronic kidney disease; E11.22 Type 2 diabetes mellitus with diabetic chronic kidney disease; Z99.2 Dependence on renal dialysis; T14.90XA Injury, unspecified, initial encounter; X58.XXXA Exposure to other specified factors, initial encounter; Y93.9 Activity, unspecified; Y92.89 Other specified places as the place of occurrence of the external cause; Y99.9 Unspecified external cause status
CPT/HCPCS: 36415; 71045-TC-FY; 76000-TC-FY; 80053; 82962; 83735; 84100; 84703; 85025; 85610; 86803; 86850; 86900; 86901; 87340; 93005; 93010; 94760; 99285-25; C9803; J0131; J1644; U0003

== ENCOUNTER 2020-06-06 08:53 | Day surgery (SDC) | payer OTHER ==
[2020-06-06 09:08] VITALS: BMI 34.7
[2020-06-06] MEDS ORDERED: LIDOCAINE HCL 1%, 10 MG/ML (20ML VIAL) ONE ×2 (10:31→12:01)
[2020-06-06] MEDS ORDERED: LIDOCAINE HCL 2% (20ML MULTI-DOSE VIAL) ONE (10:31)
[2020-06-06 10:39] LABS: INR 1.02 (0.83-1.09); PROTHROMBIN TIME (PATIENT) 12.3 SEC (9.7-13.0)
[2020-06-06 10:57] LABS: POTASSIUM 4.3 mmol/L (3.5-5.1)
[2020-06-06 10:59] LABS: ALBUMIN 2.7 g/dl (3.4-5.0); BLOOD UREA NITROGEN 30.3 mg/dL (7-18); CALCIUM 8.4 mg/dL (8.5-10.1)
[2020-06-06 11:02] LABS: CREATININE 4.9 mg/dL (0.55-1.3)
[2020-06-06 11:03] LABS: BILIRUBIN,TOTAL 0.3 mg/dL (0.2-1); TOT PROT 6.8 g/dl (6.4-8.2)
[2020-06-06] MEDS ORDERED: PROPOFOL 20 ML ONE ×2 (11:08)
[2020-06-06] MEDS ORDERED: SUCCINYLCHOLINE CHLORIDE 200 MG/10 ML SYRINGE ONE (11:08)
[2020-06-06] MEDS ORDERED: MIDAZOLAM HCL 2 MG/2 ML SINGLE DOSE VIAL ONE ×2 (11:28)
[2020-06-06] MEDS ORDERED: ceFAZolin SODIUM 1 GM VIAL IVPB ONE (11:39)
[2020-06-06 11:41] LABS: BASO % 0.6 % (0-2.0); EOS % 1.3 % (0-4.5); HEMATOCRIT 29.6 % (32.4-45.2); HEMOGLOBIN 9.3 GM/dL (10.7-15.3); LYMPH % 10.5 % (8-40); MCH 31.3 pg (25.7-33.7); MCHC 31.4 g/dl (32.0-36.0); MEAN PLT VOLUME 8.7 fl (7.5-11.1); MONO % 7.8 % (3.8-10.2); NEUT % 79.8 % (42.8-82.8); PLATELET COUNT 182 K/MM3 (134-434); RBC 2.96 M/mm3 (3.60-5.2); RDW 14.1 % (11.6-15.6); WHITE BLOOD COUNT 6.8 K/mm3 (4.0-10.0)
[2020-06-06] MEDS ORDERED: BACITRACIN 15 GM TUBE TOPICAL OINTMENT ONE (12:14)
[2020-06-06] MEDS ORDERED: BACITRACIN 15 GM TUBE TOPICAL OINTMENT TP ONE (12:15)
[2020-06-06] MEDS ORDERED: ONDANSETRON 4 MG/2 ML VIAL IVPUSH PRN (12:32)
[2020-06-06] MEDS ORDERED: oxyCODONE HCL 5 MG TABLET ONE (14:28)
[2020-06-06] MEDS ORDERED: oxyCODONE HCL 5 MG TABLET PO PRN (14:29)
[2020-06-06] MEDS ORDERED: oxyCODONE HCL 5 MG TABLET PO ONE (14:35)
[2020-06-06 15:05] VITALS: TEMP 97.5
[2020-06-06 15:37] VITALS: BP 160/81; PULSE 85
== END 2020-06-06 16:40 | disposition home or self-care (01) ==
LOC: JER 08:53 → JASUSAT 10:13
PROVIDERS: ATTEND Surgery
PROC: 3E033NZ Introduction of Analgesics, Hypnotics, Sedatives into Peripheral Vein, Percutaneous Approach (ICD-10-PCS; 2020-06-06)
PROC: 3E033GC Introduction of Other Therapeutic Substance into Peripheral Vein, Percutaneous Approach (ICD-10-PCS; 2020-06-06)
PROC: 3E03329 Introduction of Other Anti-infective into Peripheral Vein, Percutaneous Approach (ICD-10-PCS; principal; 2020-06-06 09:00)
DX: T82.41XA Breakdown (mechanical) of vascular dialysis catheter, initial encounter (principal)
CPT/HCPCS: 36415; 71045-TC-FY; 76000-TC-FY; 80053; 84703; 85025; 85610; 86850; 86900; 86901; 93005; 93010; 94760; 99285-25; C9803; J1644; U0003

== ENCOUNTER 2020-07-11 15:07 | Inpatient (IN) | payer OTHER ==
[2020-07-11] MEDS ORDERED: VANCOMYCIN 1 GM in D5W (PRE-DOCKED) 1,000 MG/250 ML IVPB ONE (16:30)
[2020-07-11] MEDS ORDERED: PIPERACILLIN/TAZOB 4.5 GM 4.5 GM in DEXTROSE 5%-WATER 100 ML IVPB ONE (16:30)
[2020-07-11] MEDS ORDERED: ACETAMINOPHEN 1000 MG/100 ML VIAL (NON FORMULARY) IVPB ONE (16:30)
[2020-07-11] MEDS ORDERED: PIPERACILLIN/TAZOB 2.25 GM 2.25 GM in DEXTROSE 5%-WATER - 50 ML IVPB ONE (16:39)
[2020-07-11] MEDS ORDERED: ACETAMINOPHEN INJECTION 100 ML IVPB ONE (16:52)
[2020-07-11] MEDS ORDERED: PIPERACILLIN/TAZOB 2.25 GM 2.25 GM/50 ML BAG IVPB ONE (16:53)
[2020-07-11] MEDS ORDERED: VANCOMYCIN 1 GRAM (PRE-DOCKED) 1,000 MG/250 ML BAG IVPB ONE (16:53)
[2020-07-11 16:58] LABS: BASO % 0.5 % (0-2.0); EOS % 1.2 % (0-4.5); HEMATOCRIT 36.2 % (32.4-45.2); HEMOGLOBIN 11.9 GM/dL (10.7-15.3); LYMPH % 11.1 % (8-40); MCH 31.5 pg (25.7-33.7); MCHC 32.8 g/dl (32.0-36.0); MEAN CELL VOLUME 95.8 fl (80-96); MEAN PLT VOLUME 8.9 fl (7.5-11.1); MONO % 7.8 % (3.8-10.2); NEUT % 79.4 % (42.8-82.8); PLATELET COUNT 152 K/MM3 (134-434); RBC 3.78 M/mm3 (3.60-5.2); RDW 14.3 % (11.6-15.6); WHITE BLOOD COUNT 5.9 K/mm3 (4.0-10.0)
[2020-07-11 17:07] LABS: INR 0.94 (0.83-1.09); PROTHROMBIN TIME (PATIENT) 11.4 SEC (9.7-13.0)
[2020-07-11 17:09] LABS: ACTIVATED PTT 32.5 SECONDS (25.2-36.5)
[2020-07-11 17:21] LABS: POTASSIUM 3.2 mmol/L (3.5-5.1)
[2020-07-11 17:23] LABS: CALCIUM 9.7 mg/dL (8.5-10.1)
[2020-07-11 17:24] LABS: ALBUMIN 3.7 g/dl (3.4-5.0); BLOOD UREA NITROGEN 25.5 mg/dL (7-18)
[2020-07-11 17:27] LABS: CREATININE 5.3 mg/dL (0.55-1.3)
[2020-07-11 17:28] LABS: BILIRUBIN,TOTAL 0.4 mg/dL (0.2-1); TOT PROT 8.3 g/dl (6.4-8.2)
[2020-07-11 19:40] LABS: ERYTHROCYTE SEDIMENTATION RATE 88 mm/hr (0-20)
[2020-07-11] MEDS ORDERED: POTASSIUM CHLORIDE TABS 20 MEQ TABLET.ER (FP) PO ONE ×2 (20:51→20:57)
[2020-07-11] MEDS ORDERED: ACETAMINOPHEN 1000 MG/100 ML VIAL (NON FORMULARY) IVPB PRN (21:49)
[2020-07-11] MEDS: HEPARIN NA (PORCINE) 5,000 UNITS/ML 1ML VIAL SQ SCH (23:22)
[2020-07-11] MEDS: INSULIN SLIDING SCALE (NOVOLOG) 1 VIAL SQ SCH (23:22)
[2020-07-11] MEDS: ACETAMINOPHEN 325 MG TABLET (FP) PO PRN (23:23)
[2020-07-12] MEDS ORDERED: DEXTROSE 5%-WATER - 50 ML IVPB ONE ×2 (01:59→20:01)
[2020-07-12] MEDS ORDERED: PIPERACILLIN/TAZOBACTAM 2.25 GM VIAL IVPB ONE (01:59)
[2020-07-12] MEDS ORDERED: PIPERACILLIN/TAZOB 2.25 GM 2.25 GM in DEXTROSE 5%-WATER - 50 ML IVPB SCH (02:00)
[2020-07-12] MEDS: PIPERACILLIN/TAZOB 2.25 GM 2.25 GM in DEXTROSE 5%-WATER - 50 ML IVPB SCH ×2 (02:09→18:14)
[2020-07-12 03:58] VITALS: BMI 31.6
[2020-07-12] MEDS: HEPARIN NA (PORCINE) 5,000 UNITS/ML 1ML VIAL SQ SCH ×3 (05:37→21:32)
[2020-07-12] MEDS: INSULIN SLIDING SCALE (NOVOLOG) 1 VIAL SQ SCH ×4 (06:25→21:29)
[2020-07-12 09:30] LABS: BASO % 0.8 % (0-2.0); EOS % 1.8 % (0-4.5); HEMATOCRIT 33.7 % (32.4-45.2); HEMOGLOBIN 11.1 GM/dL (10.7-15.3); LYMPH % 11.1 % (8-40); MCH 31.2 pg (25.7-33.7); MCHC 32.9 g/dl (32.0-36.0); MEAN CELL VOLUME 94.9 fl (80-96); MEAN PLT VOLUME 8.8 fl (7.5-11.1); MONO % 8.5 % (3.8-10.2); NEUT % 77.8 % (42.8-82.8); PLATELET COUNT 148 K/MM3 (134-434); RBC 3.55 M/mm3 (3.60-5.2); RDW 13.5 % (11.6-15.6); WHITE BLOOD COUNT 5.6 K/mm3 (4.0-10.0)
[2020-07-12 09:50] LABS: POTASSIUM 3.8 mmol/L (3.5-5.1)
[2020-07-12] MEDS ORDERED: VANCOMYCIN 1 GRAM (PRE-DOCKED) 1,000 MG/250 ML BAG IVPB ONE (10:00)
[2020-07-12] MEDS ORDERED: VANCOMYCIN 1 GM in D5W (PRE-DOCKED) 1,000 MG/250 ML IVPB SCH (10:00)
[2020-07-12 10:40] LABS: ALBUMIN 3.1 g/dl (3.4-5.0)
[2020-07-12 10:41] LABS: BLOOD UREA NITROGEN 36.9 mg/dL (7-18)
[2020-07-12 10:45] LABS: BILIRUBIN,TOTAL 0.4 mg/dL (0.2-1); CREATININE 5.9 mg/dL (0.55-1.3); PHOSPHOROUS 6.7 mg/dL (2.5-4.9); TOT PROT 7.2 g/dl (6.4-8.2)
[2020-07-12] MEDS: ACETAMINOPHEN 325 MG TABLET (FP) PO PRN (10:58)
[2020-07-12] MEDS ORDERED: INSULIN (NOVOLOG) ASPART 100 UNITS/ML 10ML VIAL ONE ×2 (14:23→21:20)
[2020-07-12] MEDS: PIPERACILLIN/TAZOB 3.375 GM 3.375 GM in DEXTROSE 5%-WATER - 50 ML IVPB SCH ×2 (17:34→20:02)
[2020-07-12] MEDS ORDERED: PIPERACILLIN/TAZOBACTAM 3.375 GM VIAL IVPB ONE (20:00)
[2020-07-12] MEDS ORDERED: BRIMONIDINE TARTRATE OP SCH (22:15)
[2020-07-12] MEDS ORDERED: TIMOLOL OU SCH (22:15)
[2020-07-12] MEDS ORDERED: TIMOLOL OP SCH (22:15)
[2020-07-12] MEDS ORDERED: BRIMONIDINE TARTRATE OU SCH (22:15)
[2020-07-12] MEDS ORDERED: PATIENT'S OWN MEDICATION (NON-FORMULARY) (Dorzolamide Hcl/Timolol Maleat [Cosopt Eye Drops OP SCH (22:15)
[2020-07-12] MEDS ORDERED: PATIENT'S OWN MEDICATION (NON-FORMULARY) (Dorzolamide Hcl/Timolol Maleat [Cosopt Eye Drops OU SCH (22:15)
[2020-07-12] MEDS ORDERED: DORZOLAMIDE 2% HCL OPHTHALMIC SOLUTION 10 ML BOTTLE OU SCH (22:30)
[2020-07-12] MEDS: DORZOLAMIDE 2% HCL OPHTHALMIC SOLUTION 10 ML BOTTLE OU SCH (23:19)
[2020-07-12] MEDS: BRIMONIDINE TARTRATE 0.2% OPHTHALMIC 5 ML BOTTLE OU SCH (23:22)
[2020-07-12] MEDS: TIMOLOL 0.5% OPHTHALMIC SOL 5 ML BOTTLE OU SCH (23:22)
[2020-07-13] MEDS ORDERED: DEXTROSE 5%-WATER - 50 ML IVPB ONE ×3 (00:59→17:47)
[2020-07-13] MEDS ORDERED: PIPERACILLIN/TAZOBACTAM 3.375 GM VIAL IVPB ONE ×3 (00:59→17:47)
[2020-07-13] MEDS: PIPERACILLIN/TAZOB 3.375 GM 3.375 GM in DEXTROSE 5%-WATER - 50 ML IVPB SCH ×3 (02:02→18:21)
[2020-07-13] MEDS: ACETAMINOPHEN 325 MG TABLET (FP) PO PRN (03:08)
[2020-07-13] MEDS: INSULIN SLIDING SCALE (NOVOLOG) 1 VIAL SQ SCH ×4 (06:47→21:49)
[2020-07-13] MEDS: DORZOLAMIDE 2% HCL OPHTHALMIC SOLUTION 10 ML BOTTLE OU SCH ×3 (06:50→21:56)
[2020-07-13] MEDS: HEPARIN NA (PORCINE) 5,000 UNITS/ML 1ML VIAL SQ SCH ×3 (06:50→21:57)
[2020-07-13 08:58] LABS: BASO % 0.9 % (0-2.0); EOS % 2.4 % (0-4.5); HEMOGLOBIN 11.3 GM/dL (10.7-15.3); LYMPH % 10.1 % (8-40); MCH 31.2 pg (25.7-33.7); MCHC 33.3 g/dl (32.0-36.0); MEAN CELL VOLUME 93.8 fl (80-96); MEAN PLT VOLUME 8.3 fl (7.5-11.1); MONO % 6.9 % (3.8-10.2); NEUT % 79.7 % (42.8-82.8); PLATELET COUNT 153 K/MM3 (134-434); RBC 3.63 M/mm3 (3.60-5.2); RDW 13.5 % (11.6-15.6); WHITE BLOOD COUNT 5.2 K/mm3 (4.0-10.0)
[2020-07-13 09:07] LABS: POTASSIUM 3.9 mmol/L (3.5-5.1)
[2020-07-13 09:14] LABS: ALBUMIN 3.2 g/dl (3.4-5.0); BLOOD UREA NITROGEN 29.9 mg/dL (7-18); CALCIUM 9.2 mg/dL (8.5-10.1)
[2020-07-13 09:18] LABS: PHOSPHOROUS 4.4 mg/dL (2.5-4.9)
[2020-07-13 09:19] LABS: TOT PROT 7.5 g/dl (6.4-8.2)
[2020-07-13] MEDS ORDERED: acetaZOLAMIDE 250 MG TABLET PO SCH (10:00)
[2020-07-13] MEDS ORDERED: ALTEPLASE 2 MG VIAL IVPUSH ONE ×2 (12:59→13:00)
[2020-07-13] MEDS ORDERED: SODIUM CHLORIDE 250 ML IV PRN ×2 (13:21→16:14)
[2020-07-13] MEDS: GABAPENTIN 300 MG CAPSULE PO SCH ×2 (14:43→21:57)
[2020-07-13] MEDS: BRIMONIDINE TARTRATE 0.2% OPHTHALMIC 5 ML BOTTLE OU SCH ×2 (14:50→21:56)
[2020-07-13] MEDS: TIMOLOL 0.5% OPHTHALMIC SOL 5 ML BOTTLE OU SCH ×2 (14:50→21:56)
[2020-07-13] MEDS ORDERED: INSULIN (NOVOLOG) ASPART 100 UNITS/ML 10ML VIAL ONE (21:19)
[2020-07-13] MEDS: INSULIN (LEVEMIR) 100 UNITS/ML UNITS SQ SCH (21:53)
[2020-07-13] MEDS ORDERED: COMBIGAN OU SCH (22:00)
[2020-07-14] MEDS ORDERED: DEXTROSE 5%-WATER - 50 ML IVPB ONE ×3 (00:54→14:13)
[2020-07-14] MEDS ORDERED: PIPERACILLIN/TAZOBACTAM 3.375 GM VIAL IVPB ONE ×2 (00:54→11:32)
[2020-07-14] MEDS: PIPERACILLIN/TAZOB 3.375 GM 3.375 GM in DEXTROSE 5%-WATER - 50 ML IVPB SCH ×2 (01:46→11:49)
[2020-07-14] MEDS: INSULIN (LEVEMIR) 100 UNITS/ML UNITS SQ SCH (06:26)
[2020-07-14] MEDS: DORZOLAMIDE 2% HCL OPHTHALMIC SOLUTION 10 ML BOTTLE OU SCH ×2 (06:26→14:29)
[2020-07-14] MEDS: HEPARIN NA (PORCINE) 5,000 UNITS/ML 1ML VIAL SQ SCH ×2 (06:26→14:28)
[2020-07-14] MEDS: INSULIN SLIDING SCALE (NOVOLOG) 1 VIAL SQ SCH ×3 (06:27→16:43)
[2020-07-14 09:01] LABS: HEMATOCRIT 28.6 % (32.4-45.2); HEMOGLOBIN 9.3 GM/dL (10.7-15.3); MCH 31.2 pg (25.7-33.7); MCHC 32.7 g/dl (32.0-36.0); MEAN CELL VOLUME 95.5 fl (80-96); MEAN PLT VOLUME 8.7 fl (7.5-11.1); PLATELET COUNT 142 K/MM3 (134-434); RBC 2.99 M/mm3 (3.60-5.2); RDW 13.7 % (11.6-15.6); WHITE BLOOD COUNT 4.6 K/mm3 (4.0-10.0)
[2020-07-14 09:20] LABS: POTASSIUM 3.7 mmol/L (3.5-5.1)
[2020-07-14 09:31] VITALS: TEMP 98
[2020-07-14 10:10] LABS: CALCIUM 8.7 mg/dL (8.5-10.1)
[2020-07-14 10:13] LABS: ALBUMIN 2.6 g/dl (3.4-5.0)
[2020-07-14 10:14] LABS: BLOOD UREA NITROGEN 31.4 mg/dL (7-18)
[2020-07-14 10:15] LABS: BILIRUBIN,TOTAL 0.8 mg/dL (0.2-1)
[2020-07-14 10:16] LABS: CREATININE 4.9 mg/dL (0.55-1.3)
[2020-07-14 11:26] LABS: PHOSPHOROUS 4.6 mg/dL (2.5-4.9)
[2020-07-14 11:43] VITALS: PULSE 70
[2020-07-14 11:44] VITALS: BP 120/72
[2020-07-14] MEDS: TIMOLOL 0.5% OPHTHALMIC SOL 5 ML BOTTLE OU SCH (11:50)
[2020-07-14] MEDS: BRIMONIDINE TARTRATE 0.2% OPHTHALMIC 5 ML BOTTLE OU SCH (11:50)
[2020-07-14] MEDS: GABAPENTIN 300 MG CAPSULE PO SCH (11:50)
[2020-07-14] MEDS ORDERED: CEFTRIAXONE 1 GM in DEXTROSE 5%-WATER - 50 ML IVPB SCH (12:00)
[2020-07-14] MEDS ORDERED: cefTRIAXone SODIUM 1 GM VIAL ONE (14:13)
[2020-07-14] MEDS ORDERED: COLLAGENASE CLOSTRIDIUM HIST. 30 GRAMS TUBE TP SCH (15:15)
[2020-07-14 18:09] LABS: HEP B CORE AB, TOT Negative (Negative)
== END 2020-07-14 19:00 | disposition home or self-care (01) | DRG 197 ==
LOC: JER 15:07 → JERBED 17:35 → J5S 23:02
PROVIDERS: ADMIT Internal Medicine; ATTEND Internal Medicine
DX: E11.52 Type 2 diabetes mellitus with diabetic peripheral angiopathy with gangrene (principal); E11.621 Type 2 diabetes mellitus with foot ulcer; E11.40 Type 2 diabetes mellitus with diabetic neuropathy, unspecified; L97.508 Non-pressure chronic ulcer of other part of unspecified foot with other specified severity; K21.9 Gastro-esophageal reflux disease without esophagitis; I96 Gangrene, not elsewhere classified; L03.031 Cellulitis of right toe; Q61.3 Polycystic kidney, unspecified; C53.9 Malignant neoplasm of cervix uteri, unspecified; D63.1 Anemia in chronic kidney disease; J45.909 Unspecified asthma, uncomplicated; I12.0 Hypertensive chronic kidney disease with stage 5 chronic kidney disease or end stage renal disease; E11.22 Type 2 diabetes mellitus with diabetic chronic kidney disease; N18.6 End stage renal disease; F41.8 Other specified anxiety disorders; F31.9 Bipolar disorder, unspecified; E66.9 Obesity, unspecified; Z68.31 Body mass index [BMI] 31.0-31.9, adult; E11.65 Type 2 diabetes mellitus with hyperglycemia; E87.6 Hypokalemia; L03.032 Cellulitis of left toe; E83.39 Other disorders of phosphorus metabolism; Z86.16 Personal history of COVID-19
CPT/HCPCS: 36415; 71045-TC-FY; 73630-TC-LT; 73630-TC-RT-FY; 73706-TC-RT; 73718-TC-LT; 73718-TC-RT; 80053; 82962; 83036; 83735; 84100; 85025; 85027; 85610; 85651; 85730; 86140; 86704; 86706; 86707; 86708; 86709; 86803; 86850; 86900; 86901; 87040; 87340; 93005; 93010; 99285-25; C9803; G0480; J0131; J1644; J2997; Q9967; U0003

== ENCOUNTER 2020-08-16 16:42 | Emergency (ER) | payer OTHER ==
[2020-08-16 17:11] VITALS: TEMP 98.4; BMI 30.4
[2020-08-16] MEDS ORDERED: ONDANSETRON *ODT* 4 MG TABLET SL ONE (17:59)
[2020-08-16] MEDS ORDERED: ACETAMINOPHEN 325 MG TABLET (FP) PO ONE (17:59)
[2020-08-16] MEDS ORDERED: ONDANSETRON *ODT* 4 MG TABLET ONE (18:13)
[2020-08-16] MEDS ORDERED: ACETAMINOPHEN 325 MG TABLET (FP) ONE (18:13)
[2020-08-16] MEDS ORDERED: SODIUM CHLORIDE 1,000 ML IV STA (19:24)
[2020-08-16 20:17] LABS: BASO % 0.7 % (0-2.0); EOS % 2.3 % (0-4.5); HEMATOCRIT 33.2 % (32.4-45.2); HEMOGLOBIN 10.8 GM/dL (10.7-15.3); LYMPH % 8.1 % (8-40); MCH 30.6 pg (25.7-33.7); MCHC 32.6 g/dl (32.0-36.0); MEAN CELL VOLUME 93.7 fl (80-96); MEAN PLT VOLUME 7.8 fl (7.5-11.1); MONO % 8.4 % (3.8-10.2); NEUT % 80.5 % (42.8-82.8); PLATELET COUNT 139 K/MM3 (134-434); RBC 3.54 M/mm3 (3.60-5.2); RDW 14.4 % (11.6-15.6); WHITE BLOOD COUNT 5.1 K/mm3 (4.0-10.0)
[2020-08-16 20:35] LABS: CHLORIDE 103 mmol/L (98-107); SODIUM 134 mmol/L (136-145)
[2020-08-16 20:38] LABS: ANION GAP 5 MMOL/L (8-16); BLOOD UREA NITROGEN 19.6 mg/dL (7-18); CO2 26 mmol/L (21-32); GLUCOSE,RANDOM 178 mg/dL (74-106); MAGNESIUM 1.8 mg/dL (1.8-2.4)
[2020-08-16 20:41] LABS: CREATININE 2.2 mg/dL (0.55-1.3); SGOT/AST 12 U/L (15-37); SGPT/ALT 14 U/L (13-61)
[2020-08-16 20:42] LABS: BILIRUBIN,TOTAL 0.3 mg/dL (0.2-1)
[2020-08-16 20:43] LABS: TOT PROT 6.8 g/dl (6.4-8.2)
[2020-08-16 20:44] LABS: ALK PHOS 91 U/L (45-117)
[2020-08-16 20:46] LABS: N-TERMINAL BNP 2111.2 pg/ml (5-125)
[2020-08-16 21:14] VITALS: BP 148/98; PULSE 81
== END 2020-08-16 22:16 | disposition home or self-care (01) ==
LOC: JER 16:42
PROC: 3E0337Z Introduction of Electrolytic and Water Balance Substance into Peripheral Vein, Percutaneous Approach (ICD-10-PCS; principal; 2020-08-16)
DX: R11.0 Nausea (principal); R42 Dizziness and giddiness
CPT/HCPCS: 36415; 71045-TC-FY; 80053; 82550; 83735; 83880; 84484; 84703; 85025; 99284-25; Q0162

== ENCOUNTER 2020-08-20 04:20 | Day surgery (SDC) | payer OTHER ==
[2020-08-20] MEDS ORDERED: PAPAVERINE HCL 30 MG/1 ML 10 ML VIAL NR ONE (12:24)
[2020-08-20] MEDS ORDERED: HEPARIN NA (PORCINE) 5,000 UNITS/ML 1ML VIAL ONE (12:24)
[2020-08-20] MEDS ORDERED: LIDOCAINE HCL 1%, 10 MG/ML (20ML VIAL) ONE (12:24)
[2020-08-20] MEDS ORDERED: MIDAZOLAM HCL 2 MG/2 ML SINGLE DOSE VIAL ONE ×2 (12:35)
[2020-08-20] MEDS ORDERED: ROPIVACAINE HCL 0.5% 30ML VIAL ONE (13:56)
[2020-08-20] MEDS ORDERED: HEPARIN NA (PORCINE) 5,000 UNITS/ML 1ML VIAL SQ ONE (14:36)
[2020-08-20] MEDS ORDERED: LIDOCAINE HCL 1%, 10 MG/ML (20ML VIAL) SQ ONE ×2 (14:36)
[2020-08-20] MEDS ORDERED: ACETAMINOPHEN 325 MG TABLET (FP) PO PRN ×2 (17:52→17:59)
[2020-08-20] MEDS ORDERED: ONDANSETRON 4 MG/2 ML VIAL IVPUSH PRN (17:52)
[2020-08-20] MEDS ORDERED: ALBUTEROL SO4 0.083% IH SOL 2.5 MG/3 ML VIAL.NEB. NEB PRN (17:54)
[2020-08-20] MEDS: GABAPENTIN 300 MG CAPSULE PO SCH (21:28)
[2020-08-20] MEDS: SODIUM BICARBONATE 650 MG TABLET PO SCH (21:28)
[2020-08-20] MEDS: INSULIN SLIDING SCALE (NOVOLOG) 1 VIAL SQ SCH (21:31)
[2020-08-20] MEDS: INSULIN (LEVEMIR) 100 UNITS/ML UNITS SQ SCH (21:32)
[2020-08-20] MEDS: acetaZOLAMIDE 250 MG TABLET PO SCH (21:43)
[2020-08-20] MEDS: TIMOLOL 0.5% OPHTHALMIC SOL 5 ML BOTTLE OU SCH (21:48)
[2020-08-20] MEDS: DORZOLAMIDE 2% HCL OPHTHALMIC SOLUTION 10 ML BOTTLE OS SCH (21:49)
[2020-08-20] MEDS: BRIMONIDINE TARTRATE 0.2% OPHTHALMIC 5 ML BOTTLE OU SCH (21:50)
[2020-08-20] MEDS ORDERED: INSULIN SLIDING SCALE (NOVOLOG) 1 VIAL SQ SCH (22:00)
[2020-08-20] MEDS ORDERED: BRIMONIDINE TARTRATE OU SCH (22:00)
[2020-08-20] MEDS ORDERED: MONTELUKAST NA 10 MG TABLET PO SCH (22:00)
[2020-08-20] MEDS ORDERED: LATANOPROST 0.005% OPHTH SOLN 2.5ML BOTTLE OU SCH (22:00)
[2020-08-20] MEDS ORDERED: TIMOLOL OU SCH (22:00)
[2020-08-20] MEDS ORDERED: PATIENT'S OWN MEDICATION (NON-FORMULARY) (Dorzolamide Hcl/Timolol Maleat [Cosopt Eye Drops OU SCH (22:00)
[2020-08-21] MEDS: SODIUM BICARBONATE 650 MG TABLET PO SCH ×2 (06:18→16:16)
[2020-08-21] MEDS: TIMOLOL 0.5% OPHTHALMIC SOL 5 ML BOTTLE OU SCH ×2 (06:20→16:13)
[2020-08-21] MEDS: DORZOLAMIDE 2% HCL OPHTHALMIC SOLUTION 10 ML BOTTLE OS SCH ×2 (06:20→16:13)
[2020-08-21] MEDS: BRIMONIDINE TARTRATE 0.2% OPHTHALMIC 5 ML BOTTLE OU SCH ×2 (06:20→16:13)
[2020-08-21] MEDS: INSULIN SLIDING SCALE (NOVOLOG) 1 VIAL SQ SCH ×3 (06:21→16:09)
[2020-08-21] MEDS: INSULIN (LEVEMIR) 100 UNITS/ML UNITS SQ SCH (06:22)
[2020-08-21] MEDS ORDERED: FERROUS SO4 325 MG TABLET (FP) PO SCH (08:00)
[2020-08-21] MEDS ORDERED: ACETAMINOPHEN WITH CODEINE 300MG/30MG TABLET PO PRN (08:58)
[2020-08-21] MEDS ORDERED: PT OWN MED DRAWER 7, Y5N ONE (09:10)
[2020-08-21] MEDS: SEVELAMER CARBONATE 800 MG TAB (FP) PO SCH ×3 (09:19→17:01)
[2020-08-21] MEDS: GABAPENTIN 300 MG CAPSULE PO SCH (09:20)
[2020-08-21] MEDS: acetaZOLAMIDE 250 MG TABLET PO SCH (09:22)
[2020-08-21] MEDS ORDERED: PANTOPRAZOLE 40 MG TABLET PO SCH (10:00)
[2020-08-21] MEDS ORDERED: FOLIC ACID 1 MG TABLET (FP) PO SCH (10:00)
[2020-08-21 11:44] LABS: POTASSIUM 4.8 mmol/L (3.5-5.1)
[2020-08-21 11:45] LABS: CALCIUM 8.5 mg/dL (8.5-10.1)
[2020-08-21 11:48] LABS: BLOOD UREA NITROGEN 48.5 mg/dL (7-18)
[2020-08-21 11:49] LABS: CREATININE 4.1 mg/dL (0.55-1.3)
[2020-08-21 12:25] VITALS: BMI 34.7
[2020-08-21] MEDS ORDERED: SODIUM CHLORIDE 250 ML IV PRN (12:28)
[2020-08-21 16:39] VITALS: BP 158/72; PULSE 84; TEMP 98.2
== END 2020-08-21 18:45 | disposition home or self-care (01) ==
LOC: JASUSAT 04:20 → JASU-SURG 04:20 → J8W 18:33 → JASUSAT 08-21 18:45
PROVIDERS: ATTEND Surgery
PROC: 03180ZD Bypass Left Brachial Artery to Upper Arm Vein, Open Approach (ICD-10-PCS; principal; 2020-08-20 13:30)
DX: I12.0 Hypertensive chronic kidney disease with stage 5 chronic kidney disease or end stage renal disease (principal); E11.22 Type 2 diabetes mellitus with diabetic chronic kidney disease; N18.6 End stage renal disease
CPT/HCPCS: 36415; 80048; 82962; 84132; 84703; 86803; 87340; J1644

== ENCOUNTER 2020-08-30 12:28 | Inpatient (IN) | payer OTHER ==
[2020-08-30 12:37] VITALS: BMI 30.4
[2020-08-30 14:08] LABS: EOS % 1.9 % (0-4.5); HEMATOCRIT 31.2 % (32.4-45.2); HEMOGLOBIN 10.3 GM/dL (10.7-15.3); LYMPH % 10.4 % (8-40); MCH 31.8 pg (25.7-33.7); MEAN CELL VOLUME 96.4 fl (80-96); MEAN PLT VOLUME 8.9 fl (7.5-11.1); MONO % 8.3 % (3.8-10.2); NEUT % 78.4 % (42.8-82.8); PLATELET COUNT 209 K/MM3 (134-434); RBC 3.24 M/mm3 (3.60-5.2); RDW 14.4 % (11.6-15.6); WHITE BLOOD COUNT 5.9 K/mm3 (4.0-10.0)
[2020-08-30 14:30] LABS: CALCIUM 9.3 mg/dL (8.5-10.1)
[2020-08-30 14:31] LABS: ALBUMIN 3.3 g/dl (3.4-5.0); BLOOD UREA NITROGEN 46.7 mg/dL (7-18)
[2020-08-30 14:34] LABS: CREATININE 4.8 mg/dL (0.55-1.3)
[2020-08-30 14:35] LABS: BILIRUBIN,TOTAL 0.4 mg/dL (0.2-1); TOT PROT 7.5 g/dl (6.4-8.2)
[2020-08-30] MEDS ORDERED: VANCOMYCIN/WATER BAGS 1,250 MG/250 ML BAG IVPB ONE (15:30)
[2020-08-30] MEDS ORDERED: PIPERACILLIN/TAZOB 4.5 GM 4.5 GM in DEXTROSE 5%-WATER 100 ML IVPB ONE (15:30)
[2020-08-30] MEDS ORDERED: PIPERACILLIN/TAZOB 4.5 GM 4.5 GM/100 ML BAG IVPB ONE (15:44)
[2020-08-30] MEDS ORDERED: INSULIN SLIDING SCALE (NOVOLOG) 1 VIAL SQ ONE ×3 (21:32→21:57)
[2020-08-30] MEDS: INSULIN SLIDING SCALE (NOVOLOG) 1 VIAL SQ SCH (22:04)
[2020-08-31] MEDS ORDERED: morphine CARPU-JECT 2 MG/1 ML DISP.SYRIN IVPUSH PRN (01:10)
[2020-08-31] MEDS ORDERED: MORPHINE SULFATE 2 MG/ML VIAL ONE (01:20)
[2020-08-31] MEDS ORDERED: PIPERACILLIN/TAZOB 2.25 GM 2.25 GM in DEXTROSE 5%-WATER - 50 ML IVPB SCH (02:00)
[2020-08-31] MEDS ORDERED: PIPERACILLIN/TAZOB 2.25 GM 2.25 GM/50 ML BAG IVPB ONE ×2 (02:02→09:51)
[2020-08-31] MEDS: PIPERACILLIN/TAZOB 2.25 GM 2.25 GM in DEXTROSE 5%-WATER - 50 ML IVPB SCH ×4 (02:46→18:19)
[2020-08-31 08:07] LABS: BASO % 0.7 % (0-2.0); EOS % 2.6 % (0-4.5); HEMATOCRIT 30.7 % (32.4-45.2); HEMOGLOBIN 10.3 GM/dL (10.7-15.3); LYMPH % 9.5 % (8-40); MCH 31.7 pg (25.7-33.7); MCHC 33.5 g/dl (32.0-36.0); MEAN CELL VOLUME 94.8 fl (80-96); MEAN PLT VOLUME 8.6 fl (7.5-11.1); MONO % 9.1 % (3.8-10.2); NEUT % 78.1 % (42.8-82.8); PLATELET COUNT 207 K/MM3 (134-434); RBC 3.24 M/mm3 (3.60-5.2); RDW 14.2 % (11.6-15.6); WHITE BLOOD COUNT 5.6 K/mm3 (4.0-10.0)
[2020-08-31 08:11] LABS: ALBUMIN 2.9 g/dl (3.4-5.0); BLOOD UREA NITROGEN 55.3 mg/dL (7-18); CALCIUM 9.1 mg/dL (8.5-10.1); MAGNESIUM 2.3 mg/dL (1.8-2.4)
[2020-08-31 08:14] LABS: CHOLESTEROL 204 mg/dL (50-200)
[2020-08-31 08:15] LABS: CREATININE 5.7 mg/dL (0.55-1.3); PHOSPHOROUS 8.2 mg/dL (2.5-4.9); TRIGLYCERIDES 202 mg/dL (0-150)
[2020-08-31 08:16] LABS: BILIRUBIN,TOTAL 0.4 mg/dL (0.2-1); HDL CHOLESTEROL 35 mg/dL (40-60); LDL CHOLESTEROL (ONLY SJRH) 123 mg/dL (5-100); TOT PROT 6.8 g/dl (6.4-8.2)
[2020-08-31] MEDS: INSULIN SLIDING SCALE (NOVOLOG) 1 VIAL SQ SCH ×4 (08:18→21:15)
[2020-08-31] MEDS ORDERED: PT OWN MED DRAWER 7, Y5N ONE ×2 (09:52→21:01)
[2020-08-31] MEDS: MORPHINE SULFATE 2 MG/ML VIAL IVPUSH PRN (12:00)
[2020-08-31] MEDS: COLLAGENASE CLOSTRIDIUM HIST. 30 GRAMS TUBE TP SCH (12:20)
[2020-08-31] MEDS ORDERED: SODIUM CHLORIDE 250 ML IV PRN (16:38)
[2020-08-31] MEDS ORDERED: ALBUTEROL SO4 HFA INHALER IH PRN (17:40)
[2020-08-31] MEDS ORDERED: PIPERACILLIN/TAZOBACTAM 2.25 GM VIAL IVPB ONE (18:06)
[2020-08-31] MEDS ORDERED: DEXTROSE 5%-WATER - 50 ML IVPB ONE (18:06)
[2020-08-31] MEDS: FOLIC ACID 1 MG TABLET (FP) PO SCH (18:19)
[2020-08-31] MEDS: FERROUS SO4 325 MG TABLET (FP) PO SCH (18:19)
[2020-08-31] MEDS ORDERED: INSULIN (NOVOLOG) ASPART 100 UNITS/ML 10ML VIAL ONE ×2 (18:57→21:01)
[2020-08-31] MEDS: SODIUM BICARBONATE 650 MG TABLET PO SCH (21:13)
[2020-08-31] MEDS: MONTELUKAST NA 10 MG TABLET PO SCH (21:13)
[2020-08-31] MEDS: acetaZOLAMIDE 250 MG TABLET PO SCH (21:14)
[2020-08-31] MEDS: INSULIN (LEVEMIR) 100 UNITS/ML UNITS SQ SCH (21:14)
[2020-08-31] MEDS: PATIENT'S OWN MEDICATION (NON-FORMULARY) (Brimonidine Tartrate/Timolol [Combigan 0.2%-0.5% OU SCH (23:45)
[2020-08-31] MEDS: PATIENT'S OWN MEDICATION (NON-FORMULARY) (Latanoprost/Pf [Latanoprost 0.005% Eye Drop] 7.5 OU SCH (23:45)
[2020-09-01] MEDS ORDERED: DEXTROSE 5%-WATER - 50 ML IVPB ONE ×3 (02:31→17:36)
[2020-09-01] MEDS ORDERED: PIPERACILLIN/TAZOBACTAM 2.25 GM VIAL IVPB ONE ×3 (02:31→17:35)
[2020-09-01] MEDS: PIPERACILLIN/TAZOB 2.25 GM 2.25 GM in DEXTROSE 5%-WATER - 50 ML IVPB SCH ×3 (02:34→17:50)
[2020-09-01] MEDS: PATIENT'S OWN MEDICATION (NON-FORMULARY) (Brimonidine Tartrate/Timolol [Combigan 0.2%-0.5% OU SCH ×2 (06:22→13:17)
[2020-09-01] MEDS: SODIUM BICARBONATE 650 MG TABLET PO SCH ×3 (06:22→21:54)
[2020-09-01] MEDS: MORPHINE SULFATE 2 MG/ML VIAL IVPUSH PRN (06:27)
[2020-09-01] MEDS: INSULIN SLIDING SCALE (NOVOLOG) 1 VIAL SQ SCH ×4 (06:36→21:57)
[2020-09-01] MEDS: INSULIN (LEVEMIR) 100 UNITS/ML UNITS SQ SCH ×2 (06:38→22:34)
[2020-09-01] MEDS: SEVELAMER CARBONATE 800 MG TAB (FP) PO SCH ×3 (08:00→17:51)
[2020-09-01 09:41] LABS: HEMATOCRIT 27.3 % (32.4-45.2); HEMOGLOBIN 9.3 GM/dL (10.7-15.3); MCH 32.3 pg (25.7-33.7); MCHC 34.2 g/dl (32.0-36.0); MEAN CELL VOLUME 94.4 fl (80-96); MEAN PLT VOLUME 8.1 fl (7.5-11.1); PLATELET COUNT 222 K/MM3 (134-434); RBC 2.89 M/mm3 (3.60-5.2); RDW 14.2 % (11.6-15.6); WHITE BLOOD COUNT 5.4 K/mm3 (4.0-10.0)
[2020-09-01 10:04] LABS: BLOOD UREA NITROGEN 62.4 mg/dL (7-18)
[2020-09-01 10:08] LABS: PHOSPHOROUS 7.8 mg/dL (2.5-4.9)
[2020-09-01] MEDS: FERROUS SO4 325 MG TABLET (FP) PO SCH (12:23)
[2020-09-01] MEDS: FOLIC ACID 1 MG TABLET (FP) PO SCH (12:24)
[2020-09-01] MEDS: acetaZOLAMIDE 250 MG TABLET PO SCH ×2 (13:11→21:51)
[2020-09-01] MEDS: COLLAGENASE CLOSTRIDIUM HIST. 30 GRAMS TUBE TP SCH (13:11)
[2020-09-01] MEDS ORDERED: PT OWN MED DRAWER 7, Y5N ONE (21:11)
[2020-09-01] MEDS: BRIMONIDINE TARTRATE 0.2% OPHTHALMIC 5 ML BOTTLE OU SCH (21:50)
[2020-09-01] MEDS: TIMOLOL 0.5% OPHTHALMIC SOL 5 ML BOTTLE OU SCH (21:50)
[2020-09-01] MEDS: PATIENT'S OWN MEDICATION (NON-FORMULARY) (Latanoprost/Pf [Latanoprost 0.005% Eye Drop] 7.5 OU SCH (21:53)
[2020-09-01] MEDS: MONTELUKAST NA 10 MG TABLET PO SCH (21:54)
[2020-09-02] MEDS ORDERED: PIPERACILLIN/TAZOBACTAM 2.25 GM VIAL IVPB ONE ×3 (01:45→17:06)
[2020-09-02] MEDS ORDERED: DEXTROSE 5%-WATER - 50 ML IVPB ONE ×3 (01:45→17:06)
[2020-09-02] MEDS: MORPHINE SULFATE 2 MG/ML VIAL IVPUSH PRN (01:58)
[2020-09-02] MEDS: PIPERACILLIN/TAZOB 2.25 GM 2.25 GM in DEXTROSE 5%-WATER - 50 ML IVPB SCH ×3 (01:59→17:18)
[2020-09-02] MEDS: BRIMONIDINE TARTRATE 0.2% OPHTHALMIC 5 ML BOTTLE OU SCH ×3 (05:56→22:01)
[2020-09-02] MEDS: TIMOLOL 0.5% OPHTHALMIC SOL 5 ML BOTTLE OU SCH ×3 (05:57→22:01)
[2020-09-02] MEDS: INSULIN SLIDING SCALE (NOVOLOG) 1 VIAL SQ SCH ×4 (06:02→22:08)
[2020-09-02] MEDS ORDERED: PT OWN MED DRAWER 7, Y5N ONE ×2 (06:34→21:27)
[2020-09-02] MEDS: SODIUM BICARBONATE 650 MG TABLET PO SCH ×3 (06:43→21:57)
[2020-09-02] MEDS: INSULIN (LEVEMIR) 100 UNITS/ML UNITS SQ SCH ×2 (06:44→22:08)
[2020-09-02] MEDS: FERROUS SO4 325 MG TABLET (FP) PO SCH (08:56)
[2020-09-02] MEDS: SEVELAMER CARBONATE 800 MG TAB (FP) PO SCH ×3 (08:57→17:18)
[2020-09-02 09:46] LABS: BASO % 0.9 % (0-2.0); HEMATOCRIT 29.7 % (32.4-45.2); HEMOGLOBIN 9.8 GM/dL (10.7-15.3); LYMPH % 14.1 % (8-40); MCH 31.7 pg (25.7-33.7); MONO % 10.5 % (3.8-10.2); NEUT % 71.5 % (42.8-82.8); PLATELET COUNT 199 K/MM3 (134-434); RDW 14.2 % (11.6-15.6); WHITE BLOOD COUNT 4.6 K/mm3 (4.0-10.0)
[2020-09-02] MEDS: acetaZOLAMIDE 250 MG TABLET PO SCH ×2 (10:37→21:58)
[2020-09-02] MEDS: FOLIC ACID 1 MG TABLET (FP) PO SCH (10:37)
[2020-09-02] MEDS: COLLAGENASE CLOSTRIDIUM HIST. 30 GRAMS TUBE TP SCH (10:38)
[2020-09-02] MEDS ORDERED: INSULIN (NOVOLOG) ASPART 100 UNITS/ML 10ML VIAL ONE ×2 (11:26→21:27)
[2020-09-02] MEDS: MONTELUKAST NA 10 MG TABLET PO SCH (21:57)
[2020-09-02] MEDS: PATIENT'S OWN MEDICATION (NON-FORMULARY) (Latanoprost/Pf [Latanoprost 0.005% Eye Drop] 7.5 OU SCH (22:02)
[2020-09-03] MEDS ORDERED: DEXTROSE 5%-WATER - 50 ML IVPB ONE ×3 (01:28→16:25)
[2020-09-03] MEDS ORDERED: PIPERACILLIN/TAZOBACTAM 2.25 GM VIAL IVPB ONE ×3 (01:28→16:25)
[2020-09-03] MEDS: PIPERACILLIN/TAZOB 2.25 GM 2.25 GM in DEXTROSE 5%-WATER - 50 ML IVPB SCH ×3 (02:00→17:29)
[2020-09-03] MEDS: BRIMONIDINE TARTRATE 0.2% OPHTHALMIC 5 ML BOTTLE OU SCH ×3 (06:49→21:35)
[2020-09-03] MEDS: SODIUM BICARBONATE 650 MG TABLET PO SCH ×3 (06:50→21:32)
[2020-09-03] MEDS: TIMOLOL 0.5% OPHTHALMIC SOL 5 ML BOTTLE OU SCH ×3 (06:50→21:36)
[2020-09-03] MEDS: INSULIN (LEVEMIR) 100 UNITS/ML UNITS SQ SCH ×2 (06:53→21:33)
[2020-09-03] MEDS: INSULIN SLIDING SCALE (NOVOLOG) 1 VIAL SQ SCH ×4 (06:53→21:33)
[2020-09-03] MEDS: FERROUS SO4 325 MG TABLET (FP) PO SCH (08:24)
[2020-09-03] MEDS: SEVELAMER CARBONATE 800 MG TAB (FP) PO SCH ×3 (08:24→16:29)
[2020-09-03] MEDS: MORPHINE SULFATE 2 MG/ML VIAL IVPUSH PRN (10:03)
[2020-09-03] MEDS: FOLIC ACID 1 MG TABLET (FP) PO SCH (10:03)
[2020-09-03 10:49] LABS: BASO % 1.2 % (0-2.0); EOS % 4.6 % (0-4.5); HEMATOCRIT 31.8 % (32.4-45.2); HEMOGLOBIN 10.5 GM/dL (10.7-15.3); LYMPH % 13.1 % (8-40); MCH 31.5 pg (25.7-33.7); MEAN CELL VOLUME 95.5 fl (80-96); MONO % 8.4 % (3.8-10.2); NEUT % 72.7 % (42.8-82.8); PLATELET COUNT 207 K/MM3 (134-434); RBC 3.33 M/mm3 (3.60-5.2); RDW 14.2 % (11.6-15.6); WHITE BLOOD COUNT 4.8 K/mm3 (4.0-10.0)
[2020-09-03 11:11] LABS: ALBUMIN 2.8 g/dl (3.4-5.0); BLOOD UREA NITROGEN 56.8 mg/dL (7-18); CALCIUM 8.8 mg/dL (8.5-10.1)
[2020-09-03 11:14] LABS: CREATININE 5.5 mg/dL (0.55-1.3)
[2020-09-03 11:16] LABS: TOT PROT 6.8 g/dl (6.4-8.2)
[2020-09-03 11:17] LABS: BILIRUBIN,TOTAL 0.5 mg/dL (0.2-1)
[2020-09-03] MEDS ORDERED: PT OWN MED DRAWER 7, Y5N ONE ×3 (11:40→21:19)
[2020-09-03 11:42] LABS: ERYTHROCYTE SEDIMENTATION RATE 96 mm/hr (0-20)
[2020-09-03] MEDS: acetaZOLAMIDE 250 MG TABLET PO SCH ×2 (11:42→21:32)
[2020-09-03] MEDS: COLLAGENASE CLOSTRIDIUM HIST. 30 GRAMS TUBE TP SCH (11:42)
[2020-09-03] MEDS ORDERED: SODIUM CHLORIDE 250 ML IV PRN (17:18)
[2020-09-03] MEDS: MONTELUKAST NA 10 MG TABLET PO SCH (21:32)
[2020-09-03] MEDS: PATIENT'S OWN MEDICATION (NON-FORMULARY) (Latanoprost/Pf [Latanoprost 0.005% Eye Drop] 7.5 OU SCH (21:36)
[2020-09-04] MEDS ORDERED: DEXTROSE 5%-WATER - 50 ML IVPB ONE (02:19)
[2020-09-04] MEDS ORDERED: PIPERACILLIN/TAZOBACTAM 2.25 GM VIAL IVPB ONE (02:19)
[2020-09-04] MEDS: PIPERACILLIN/TAZOB 2.25 GM 2.25 GM in DEXTROSE 5%-WATER - 50 ML IVPB SCH ×2 (02:26→10:00)
[2020-09-04] MEDS: INSULIN SLIDING SCALE (NOVOLOG) 1 VIAL SQ SCH ×3 (06:23→17:37)
[2020-09-04] MEDS: SODIUM BICARBONATE 650 MG TABLET PO SCH ×2 (06:23→14:09)
[2020-09-04] MEDS: INSULIN (LEVEMIR) 100 UNITS/ML UNITS SQ SCH (06:23)
[2020-09-04] MEDS: TIMOLOL 0.5% OPHTHALMIC SOL 5 ML BOTTLE OU SCH ×2 (06:23→14:23)
[2020-09-04] MEDS: BRIMONIDINE TARTRATE 0.2% OPHTHALMIC 5 ML BOTTLE OU SCH ×3 (06:23→14:19)
[2020-09-04] MEDS: FERROUS SO4 325 MG TABLET (FP) PO SCH (08:00)
[2020-09-04] MEDS: SEVELAMER CARBONATE 800 MG TAB (FP) PO SCH ×3 (08:02→17:39)
[2020-09-04] MEDS: acetaZOLAMIDE 250 MG TABLET PO SCH (10:00)
[2020-09-04 10:01] LABS: HEMOGLOBIN 9.7 GM/dL (10.7-15.3); MCH 31.8 pg (25.7-33.7); MCHC 33.3 g/dl (32.0-36.0); MEAN CELL VOLUME 95.5 fl (80-96); MEAN PLT VOLUME 8.4 fl (7.5-11.1); PLATELET COUNT 217 K/MM3 (134-434); RBC 3.04 M/mm3 (3.60-5.2); RDW 13.9 % (11.6-15.6); WHITE BLOOD COUNT 5.6 K/mm3 (4.0-10.0)
[2020-09-04 10:25] LABS: ALBUMIN 2.8 g/dl (3.4-5.0); CALCIUM 8.7 mg/dL (8.5-10.1)
[2020-09-04 10:26] LABS: BLOOD UREA NITROGEN 64.5 mg/dL (7-18)
[2020-09-04 10:29] LABS: CREATININE 5.8 mg/dL (0.55-1.3)
[2020-09-04 10:31] LABS: BILIRUBIN,TOTAL 0.4 mg/dL (0.2-1); TOT PROT 6.4 g/dl (6.4-8.2)
[2020-09-04] MEDS: COLLAGENASE CLOSTRIDIUM HIST. 30 GRAMS TUBE TP SCH (14:08)
[2020-09-04] MEDS: FOLIC ACID 1 MG TABLET (FP) PO SCH (14:09)
[2020-09-04 14:30] VITALS: BP 136/74; PULSE 91; TEMP 97.8
[2020-09-04] MEDS ORDERED: CEFTRIAXONE 2 GM in DEXTROSE 5%-WATER 2 GM/100 ML BAG IVPB SCH (14:45)
[2020-09-04] MEDS ORDERED: VANCOMYCIN 1 GM in D5W (PRE-DOCKED) 1,000 MG/250 ML IVPB SCH (15:45)
[2020-09-04] MEDS ORDERED: INSULIN (NOVOLOG) ASPART 100 UNITS/ML 10ML VIAL ONE (17:32)
== END 2020-09-04 20:43 | disposition home or self-care (01) | DRG 197 ==
LOC: JER 12:28 → JERBED 16:55 → J6S 08-31 10:52
PROVIDERS: ADMIT Internal Medicine; ATTEND Internal Medicine
PROC: 5A1D70Z Performance of Urinary Filtration, Intermittent, Less than 6 Hours Per Day (ICD-10-PCS; principal; 2020-09-01)
PROC: 5A1D70Z Performance of Urinary Filtration, Intermittent, Less than 6 Hours Per Day (ICD-10-PCS; 2020-09-04)
DX: E11.52 Type 2 diabetes mellitus with diabetic peripheral angiopathy with gangrene (principal); E11.22 Type 2 diabetes mellitus with diabetic chronic kidney disease; I96 Gangrene, not elsewhere classified; N18.6 End stage renal disease; K21.9 Gastro-esophageal reflux disease without esophagitis; I12.0 Hypertensive chronic kidney disease with stage 5 chronic kidney disease or end stage renal disease; F41.8 Other specified anxiety disorders; H40.9 Unspecified glaucoma; F31.9 Bipolar disorder, unspecified; Q61.3 Polycystic kidney, unspecified; E11.621 Type 2 diabetes mellitus with foot ulcer; L97.518 Non-pressure chronic ulcer of other part of right foot with other specified severity; E11.42 Type 2 diabetes mellitus with diabetic polyneuropathy; C53.9 Malignant neoplasm of cervix uteri, unspecified; D63.1 Anemia in chronic kidney disease; E66.9 Obesity, unspecified; Z68.30 Body mass index [BMI] 30.0-30.9, adult; E11.69 Type 2 diabetes mellitus with other specified complication; M86.8X7 Other osteomyelitis, ankle and foot; B95.7 Other staphylococcus as the cause of diseases classified elsewhere; E11.65 Type 2 diabetes mellitus with hyperglycemia; Z99.2 Dependence on renal dialysis
CPT/HCPCS: 36415; 73718-TC-RT; 80048; 80053; 80061; 82962; 83036; 83605; 83721; 83735; 84100; 85025; 85027; 85651; 86140; 86850; 86900; 86901; 87040; 87070; 87186; 87205; 95886-TC; 95913-TC; 97116-GP; 97161-GP; 99285-25; C9803; G0463-25; U0003; U0005

== ENCOUNTER 2020-10-03 04:35 | Day surgery (SDC) | payer OTHER ==
[2020-10-03] MEDS ORDERED: LIDOCAINE HCL 1%, 10 MG/ML (20ML VIAL) ONE (15:25)
[2020-10-03] MEDS ORDERED: HEPARIN NA (PORCINE) 5,000 UNITS/ML 1ML VIAL ONE (15:25)
[2020-10-03] MEDS ORDERED: PROPOFOL 20 ML ONE (15:33)
[2020-10-03] MEDS ORDERED: MIDAZOLAM HCL 2 MG/2 ML SINGLE DOSE VIAL ONE (15:33)
[2020-10-03] MEDS ORDERED: ONDANSETRON 4 MG/2 ML VIAL ONE (15:33)
[2020-10-03 16:43] VITALS: BMI 30.4
[2020-10-03] MEDS ORDERED: ONDANSETRON 4 MG/2 ML VIAL IVPUSH PRN (17:37)
[2020-10-03] MEDS ORDERED: ceFAZolin SODIUM 1 GM VIAL IVPB ONE (17:45)
[2020-10-03] MEDS ORDERED: SODIUM CHLORIDE 1,000 ML IV SCH (17:45)
[2020-10-03] MEDS ORDERED: LIDOCAINE HCL 1%, 10 MG/ML (20ML VIAL) INF ONE (18:06)
[2020-10-03 19:08] VITALS: BP 142/87; PULSE 81; TEMP 97.4
== END 2020-10-03 19:08 | disposition home or self-care (01) ==
LOC: JASU-SURG 04:35
PROVIDERS: ATTEND Surgery
PROC: 02H633Z Insertion of Infusion Device into Right Atrium, Percutaneous Approach (ICD-10-PCS; principal; 2020-10-03 16:00)
DX: Z45.2 Encounter for adjustment and management of vascular access device (principal); Q61.3 Polycystic kidney, unspecified; E11.22 Type 2 diabetes mellitus with diabetic chronic kidney disease; N18.6 End stage renal disease; Z99.2 Dependence on renal dialysis; M86.9 Osteomyelitis, unspecified; Z85.41 Personal history of malignant neoplasm of cervix uteri; Z79.4 Long term (current) use of insulin
CPT/HCPCS: 36578; C1751; 76000-TC-FY; 81025; 88300-TC; 93005; 93010; J1644

== ENCOUNTER 2020-10-04 09:45 | Emergency (ER) | payer OTHER ==
[2020-10-04 10:19] VITALS: BMI 30.4
[2020-10-04 11:16] LABS: BASO % 0.9 % (0-2.0); EOS % 2.5 % (0-4.5); HEMATOCRIT 31.7 % (32.4-45.2); HEMOGLOBIN 10.6 GM/dL (10.7-15.3); LYMPH % 11.4 % (8-40); MCH 32.4 pg (25.7-33.7); MCHC 33.4 g/dl (32.0-36.0); MEAN CELL VOLUME 97.1 fl (80-96); MEAN PLT VOLUME 8.1 fl (7.5-11.1); MONO % 8.5 % (3.8-10.2); NEUT % 76.7 % (42.8-82.8); PLATELET COUNT 146 K/MM3 (134-434); RBC 3.26 M/mm3 (3.60-5.2); WHITE BLOOD COUNT 4.8 K/mm3 (4.0-10.0)
[2020-10-04 11:25] LABS: PROTHROMBIN TIME (PATIENT) 12.1 SEC (9.7-13.0)
[2020-10-04] MEDS ORDERED: ALPRAZolam 0.25 MG TABLET PO ONE (11:40)
[2020-10-04 11:47] LABS: CHLORIDE 112 mmol/L (98-107); SODIUM 140 mmol/L (136-145)
[2020-10-04 11:49] LABS: CALCIUM 8.2 mg/dL (8.5-10.1)
[2020-10-04 11:50] LABS: ALBUMIN 3.1 g/dl (3.4-5.0); ANION GAP 11 MMOL/L (8-16); CO2 17 mmol/L (21-32); GLUCOSE,RANDOM 177 mg/dL (74-106)
[2020-10-04 11:53] LABS: CREATININE 5.5 mg/dL (0.55-1.3); SGOT/AST 11 U/L (15-37)
[2020-10-04 11:54] LABS: BILIRUBIN,TOTAL 0.3 mg/dL (0.2-1); TOT PROT 6.7 g/dl (6.4-8.2)
[2020-10-04 11:55] LABS: ALK PHOS 91 U/L (45-117)
[2020-10-04 11:59] LABS: SGPT/ALT < 6 U/L (13-61)
[2020-10-04] MEDS ORDERED: ALPRAZolam 0.25 MG TABLET ONE (11:59)
[2020-10-04] MEDS ORDERED: DEXTROSE 50%-WATER - 25 GM/50 ML VIAL IVPUSH ONE (13:01)
[2020-10-04] MEDS ORDERED: INSULIN REGULAR HUMAN 100 UNITS/ML *VIAL SQ ONE (13:01)
[2020-10-04] MEDS ORDERED: CALCIUM GLUCONATE 10% - 1,000 MG/10 ML VIAL IVPB ONE (13:04)
[2020-10-04 17:03] LABS: CHLORIDE 115 mmol/L (98-107); SODIUM 140 mmol/L (136-145)
[2020-10-04 17:05] LABS: BLOOD UREA NITROGEN 82.7 mg/dL (7-18); CALCIUM 8.4 mg/dL (8.5-10.1)
[2020-10-04 17:06] LABS: ANION GAP 12 MMOL/L (8-16); CO2 13 mmol/L (21-32); GLUCOSE,RANDOM 179 mg/dL (74-106)
[2020-10-04 17:08] LABS: CREATININE 5.5 mg/dL (0.55-1.3)
[2020-10-04 19:39] VITALS: BP 160/90; PULSE 88; TEMP 98.9
== END 2020-10-04 20:00 | disposition home or self-care (01) ==
LOC: JER 09:45
PROC: 3E033NZ Introduction of Analgesics, Hypnotics, Sedatives into Peripheral Vein, Percutaneous Approach (ICD-10-PCS; principal; 2020-10-04)
PROC: 3E033GC Introduction of Other Therapeutic Substance into Peripheral Vein, Percutaneous Approach (ICD-10-PCS; 2020-10-04)
DX: R07.89 Other chest pain (principal); F41.9 Anxiety disorder, unspecified; R06.02 Shortness of breath
CPT/HCPCS: 36415; 71045-TC-FY; 80048; 80053; 82550; 82962; 84484; 85025; 85610; 93005; 93010; 99285-25

== ENCOUNTER 2020-10-11 17:20 | Inpatient (IN) | payer OTHER ==
[2020-10-11 17:49] VITALS: BMI 30.4
[2020-10-11 19:48] LABS: BASO % 0.8 % (0-2.0); EOS % 1.9 % (0-4.5); HEMATOCRIT 34.9 % (32.4-45.2); HEMOGLOBIN 11.7 GM/dL (10.7-15.3); LYMPH % 6.5 % (8-40); MCH 32.3 pg (25.7-33.7); MCHC 33.4 g/dl (32.0-36.0); MEAN CELL VOLUME 96.6 fl (80-96); MEAN PLT VOLUME 8.2 fl (7.5-11.1); MONO % 7.7 % (3.8-10.2); NEUT % 83.1 % (42.8-82.8); PLATELET COUNT 165 K/MM3 (134-434); RBC 3.62 M/mm3 (3.60-5.2); RDW 14.5 % (11.6-15.6); WHITE BLOOD COUNT 5.7 K/mm3 (4.0-10.0)
[2020-10-11 19:57] LABS: INR 0.87 (0.83-1.09); PROTHROMBIN TIME (PATIENT) 10.8 SEC (9.7-13.0)
[2020-10-11 19:59] LABS: ACTIVATED PTT 31.5 SECONDS (25.2-36.5)
[2020-10-11 20:04] LABS: CHLORIDE 105 mmol/L (98-107); SODIUM 136 mmol/L (136-145)
[2020-10-11 20:07] LABS: ANION GAP 8 MMOL/L (8-16); CALCIUM 7.7 mg/dL (8.5-10.1); CO2 24 mmol/L (21-32); GLUCOSE,RANDOM 256 mg/dL (74-106)
[2020-10-11 20:10] LABS: CREATININE 3.5 mg/dL (0.55-1.3); SGOT/AST 11 U/L (15-37); SGPT/ALT < 6 U/L (13-61)
[2020-10-11 20:11] LABS: BILIRUBIN,TOTAL 0.2 mg/dL (0.2-1)
[2020-10-11 20:12] LABS: TOT PROT 6.8 g/dl (6.4-8.2)
[2020-10-11 20:24] LABS: ALK PHOS 123 U/L (45-117); BLOOD UREA NITROGEN 33.2 mg/dL (7-18)
[2020-10-11 21:13] LABS: ANISOCYTOSIS 1+; MACROCYTOSIS 0; PLATELET ESTIMATE NORMAL
[2020-10-11] MEDS ORDERED: ACETAMINOPHEN 325 MG TABLET (FP) PO PRN (22:40)
[2020-10-11] MEDS ORDERED: GABAPENTIN 100 MG CAPSULE ONE (23:00)
[2020-10-11] MEDS: GABAPENTIN 100 MG CAPSULE PO SCH (23:03)
[2020-10-12] MEDS ORDERED: ACETAMINOPHEN 1000 MG/100 ML VIAL (NON FORMULARY) IVPB PRN (01:17)
[2020-10-12] MEDS ORDERED: morphine SULFATE 4 MG/ML VIAL IVPUSH ONE (01:17)
[2020-10-12] MEDS ORDERED: morphine SULFATE 4 MG/ML VIAL ONE (01:42)
[2020-10-12] MEDS ORDERED: HEPARIN NA (PORCINE) 5,000 UNITS/ML 1ML VIAL ONE ×2 (06:04→15:54)
[2020-10-12] MEDS: HEPARIN NA (PORCINE) 5,000 UNITS/ML 1ML VIAL SQ SCH ×2 (06:09→15:52)
[2020-10-12 06:54] LABS: CHLORIDE 109 mmol/L (98-107); SODIUM 139 mmol/L (136-145)
[2020-10-12 06:56] LABS: ALBUMIN 2.7 g/dl (3.4-5.0); ANION GAP 10 MMOL/L (8-16); CALCIUM 7.7 mg/dL (8.5-10.1); CO2 21 mmol/L (21-32); GLUCOSE,RANDOM 192 mg/dL (74-106)
[2020-10-12 06:59] LABS: CREATININE 4.2 mg/dL (0.55-1.3); SGOT/AST 10 U/L (15-37)
[2020-10-12 07:00] LABS: HEMATOCRIT 35.3 % (32.4-45.2); HEMOGLOBIN 11.6 GM/dL (10.7-15.3); MAGNESIUM 1.8 mg/dL (1.8-2.4); MCH 32.4 pg (25.7-33.7); MEAN CELL VOLUME 98.2 fl (80-96); MEAN PLT VOLUME 8.2 fl (7.5-11.1); PHOSPHOROUS 7.3 mg/dL (2.5-4.9); PLATELET COUNT 170 K/MM3 (134-434); RBC 3.59 M/mm3 (3.60-5.2); RDW 14.7 % (11.6-15.6); WHITE BLOOD COUNT 5.6 K/mm3 (4.0-10.0)
[2020-10-12 07:01] LABS: BILIRUBIN,TOTAL 0.2 mg/dL (0.2-1); TOT PROT 6.2 g/dl (6.4-8.2)
[2020-10-12 07:02] LABS: ALK PHOS 94 U/L (45-117)
[2020-10-12 07:04] LABS: BLOOD UREA NITROGEN 39.3 mg/dL (7-18); SGPT/ALT < 6 U/L (13-61)
[2020-10-12] MEDS ORDERED: GABAPENTIN 100 MG CAPSULE ONE (08:28)
[2020-10-12] MEDS ORDERED: PANTOPRAZOLE 40 MG TABLET ONE (08:28)
[2020-10-12] MEDS ORDERED: amLODIPine BESYLATE 5 MG TABLET (FP) ONE (08:28)
[2020-10-12] MEDS: INSULIN SLIDING SCALE (NOVOLOG) 1 VIAL SQ SCH ×3 (08:44→18:40)
[2020-10-12] MEDS ORDERED: amLODIPine BESYLATE 5 MG TABLET (FP) PO SCH (10:00)
[2020-10-12] MEDS ORDERED: FERROUS SO4 325 MG TABLET (FP) PO SCH (10:00)
[2020-10-12] MEDS ORDERED: ASPIRIN COATED 81 MG TABLET.EC PO SCH (10:00)
[2020-10-12] MEDS ORDERED: PANTOPRAZOLE 40 MG TABLET PO SCH (10:00)
[2020-10-12] MEDS ORDERED: acetaZOLAMIDE 250 MG TABLET PO SCH (10:00)
[2020-10-12] MEDS ORDERED: CLOPIDOGREL BISULFATE 75 MG TABLET (FP) PO SCH (10:00)
[2020-10-12] MEDS ORDERED: PARoxetine HCL 10 MG TABLET PO SCH (10:00)
[2020-10-12] MEDS: GABAPENTIN 100 MG CAPSULE PO SCH (10:26)
[2020-10-12] MEDS ORDERED: CLOPIDOGREL BISULFATE 75 MG TABLET (FP) ONE (10:34)
[2020-10-12] MEDS ORDERED: ASPIRIN COATED 81 MG TABLET.EC ONE (10:34)
[2020-10-12] MEDS ORDERED: PARoxetine HCL 10 MG TABLET ONE (10:35)
[2020-10-12] MEDS ORDERED: FERROUS SO4 325 MG TABLET (FP) ONE (10:35)
[2020-10-12] MEDS ORDERED: ACETAMINOPHEN 325 MG TABLET (FP) ONE (12:44)
[2020-10-12] MEDS ORDERED: TIMOLOL 0.5% OPHTHALMIC SOL 5 ML BOTTLE OU SCH (14:00)
[2020-10-12] MEDS ORDERED: DORZOLAMIDE 2% HCL OPHTHALMIC SOLUTION 10 ML BOTTLE OS SCH (14:00)
[2020-10-12] MEDS ORDERED: BRIMONIDINE TARTRATE 0.2% OPHTHALMIC 5 ML BOTTLE OU SCH (14:00)
[2020-10-12] MEDS ORDERED: PATIENT'S OWN MEDICATION (NON-FORMULARY) (Brimonidine Tartrate/Timolol [Combigan 0.2%-0.5% OU SCH (14:00)
[2020-10-12 15:07] VITALS: TEMP 98.6
[2020-10-12] MEDS: SEVELAMER CARBONATE 800 MG TAB (FP) PO SCH ×2 (15:50→18:41)
[2020-10-12 18:42] VITALS: BP 132/63; PULSE 82
[2020-10-12] MEDS ORDERED: INSULIN (LEVEMIR) 100 UNITS/ML UNITS SQ SCH (22:00)
== END 2020-10-12 19:01 | disposition short-term general hospital (02) | DRG 694 ==
LOC: JER 17:20 → JERBED 19:15 → OBSVTOIN 23:09
PROVIDERS: ADMIT Internal Medicine; ATTEND Internal Medicine
DX: C79.89 Secondary malignant neoplasm of other specified sites (principal); N18.6 End stage renal disease; E11.22 Type 2 diabetes mellitus with diabetic chronic kidney disease; I10 Essential (primary) hypertension; E11.51 Type 2 diabetes mellitus with diabetic peripheral angiopathy without gangrene; I73.9 Peripheral vascular disease, unspecified; H40.9 Unspecified glaucoma; H54.42A3 Blindness left eye category 3, normal vision right eye; Z68.30 Body mass index [BMI] 30.0-30.9, adult; E66.9 Obesity, unspecified; I16.0 Hypertensive urgency; Q61.3 Polycystic kidney, unspecified; D63.1 Anemia in chronic kidney disease; R07.9 Chest pain, unspecified; F41.8 Other specified anxiety disorders; E88.09 Other disorders of plasma-protein metabolism, not elsewhere classified; K21.9 Gastro-esophageal reflux disease without esophagitis; I51.89 Other ill-defined heart diseases
CPT/HCPCS: 15275; 36415; 71045-TC-FY; 80053; 82962; 83735; 84100; 84484; 85025; 85027; 85610; 85730; 93005; 93010; 93306-TC; 97597; 99285-25; C9803; G0277; G0378; J1644; Q4106; U0003; U0005

== ENCOUNTER 2020-12-12 23:59 | Inpatient (IN) | payer OTHER ==
[2020-12-13] MEDS ORDERED: ACETAMINOPHEN 1000 MG/100 ML VIAL (NON FORMULARY) IVPB ONE (01:13)
[2020-12-13] MEDS ORDERED: ACETAMINOPHEN INJECTION 100 ML IVPB ONE (01:45)
[2020-12-13 02:46] LABS: BASO % 0.6 % (0-2.0); EOS % 1.8 % (0-4.5); HEMATOCRIT 32.5 % (32.4-45.2); HEMOGLOBIN 10.7 GM/dL (10.7-15.3); LYMPH % 11.5 % (8-40); MCH 31.7 pg (25.7-33.7); MEAN CELL VOLUME 96.2 fl (80-96); MONO % 6.6 % (3.8-10.2); NEUT % 79.5 % (42.8-82.8); PLATELET COUNT 216 10^3/uL (134-434); RBC 3.38 M/mm3 (3.60-5.2); RDW 14.7 % (11.6-15.6); WHITE BLOOD COUNT 6.4 K/mm3 (4.0-10.0)
[2020-12-13 03:01] LABS: CHLORIDE 111 mmol/L (98-107); SODIUM 140 mmol/L (136-145)
[2020-12-13 03:03] LABS: ALBUMIN 2.9 g/dl (3.4-5.0); ANION GAP 11 MMOL/L (8-16); BLOOD UREA NITROGEN 72.6 mg/dL (7-18); CO2 18 mmol/L (21-32); GLUCOSE,RANDOM 193 mg/dL (74-106)
[2020-12-13 03:06] LABS: CREATININE 5.1 mg/dL (0.55-1.3); SGOT/AST 27 U/L (15-37); SGPT/ALT 15 U/L (13-61)
[2020-12-13 03:08] LABS: BILIRUBIN,TOTAL 0.3 mg/dL (0.2-1); TOT PROT 6.7 g/dl (6.4-8.2)
[2020-12-13 03:10] LABS: ALK PHOS 130 U/L (45-117)
[2020-12-13 03:21] LABS: INR 3.59 (0.83-1.09); PROTHROMBIN TIME (PATIENT) 41.8 SEC (9.7-13.0)
[2020-12-13 03:24] LABS: ACTIVATED PTT 59.4 SECONDS (25.2-36.5)
[2020-12-13] MEDS ORDERED: ONDANSETRON 4 MG/2 ML VIAL IVPUSH PRN (09:37)
[2020-12-13 12:28] LABS: HEMOGLOBIN 10.3 GM/dL (10.7-15.3); MCH 31.8 pg (25.7-33.7); MCHC 33.4 g/dl (32.0-36.0); MEAN CELL VOLUME 95.2 fl (80-96); MEAN PLT VOLUME 7.5 fl (7.5-11.1); PLATELET COUNT 202 10^3/uL (134-434); RBC 3.26 M/mm3 (3.60-5.2); RDW 14.6 % (11.6-15.6); WHITE BLOOD COUNT 4.8 K/mm3 (4.0-10.0)
[2020-12-13] MEDS: INSULIN SLIDING SCALE (NOVOLOG) 1 VIAL SQ SCH ×3 (12:49→22:20)
[2020-12-13 13:09] LABS: ALBUMIN 2.7 g/dl (3.4-5.0); BILIRUBIN,TOTAL 0.2 mg/dL (0.2-1); BLOOD UREA NITROGEN 75.6 mg/dL (7-18); CALCIUM 8.2 mg/dL (8.5-10.1); CREATININE 5.2 mg/dL (0.55-1.3)
[2020-12-13] MEDS: ACETAMINOPHEN 1000 MG/100 ML VIAL (NON FORMULARY) IVPB PRN ×2 (13:39→21:49)
[2020-12-13] MEDS ORDERED: DEXTROSE 5%-NORMAL SALINE 1,000 ML IV SCH (13:45)
[2020-12-13] MEDS ORDERED: SODIUM CHLORIDE 250 ML IV PRN (15:20)
[2020-12-13] MEDS: LOSARTAN POTASSIUM 50 MG TABLET PO SCH (15:33)
[2020-12-13] MEDS: oxyCODONE HCL 5 MG TABLET PO PRN (16:11)
[2020-12-13] MEDS: LIDOCAINE 5% TOPICAL PATCH TP SCH (16:12)
[2020-12-13] MEDS: BRIMONIDINE TARTRATE 0.2% OPHTHALMIC 5 ML BOTTLE OS SCH ×2 (18:00→22:54)
[2020-12-13 19:05] VITALS: BMI 36.3
[2020-12-13] MEDS: DEXTROSE 5%-0.45% SALINE 1,000 ML IV SCH (21:21)
[2020-12-13] MEDS ORDERED: PT OWN MED DRAWER 7, Y5N ONE (21:32)
[2020-12-13] MEDS: GABAPENTIN 100 MG CAPSULE PO SCH (22:51)
[2020-12-13] MEDS: acetaZOLAMIDE 250 MG TABLET PO SCH (22:52)
[2020-12-13] MEDS: LIDOCAINE PATCH REMOVAL MC SCH (22:53)
[2020-12-13] MEDS: DORZOLAMIDE 2% HCL OPHTHALMIC SOLUTION 10 ML BOTTLE OU SCH (22:54)
[2020-12-13] MEDS: TIMOLOL 0.25% OPHTHALMIC SOL 5 ML BOTTLE OU SCH (22:55)
[2020-12-13] MEDS: LATANOPROST 0.005% OPHTH SOLN 2.5ML BOTTLE OU SCH (22:55)
[2020-12-14 01:56] LABS: EPI CELLS 15 /uL (0-25.1); HYALINE CASTS 1 /uL (0-3.1); URINE APPEARANCE CLEAR; URINE BACTERIA 182 /uL (0-1359); URINE BILIRUBIN NEGATIVE (NEGATIVE); URINE COLOR YELLOW; URINE GLUCOSE (UA) 1+ (NEGATIVE); URINE KETONE NEGATIVE (NEGATIVE); URINE LEUK ESTERASE 1+ (NEGATIVE); URINE NITRITE NEGATIVE (NEGATIVE); URINE PROTEIN 2+ (NEGATIVE); URINE RBC 95 /uL (0-23.9); URINE UROBILINOGEN 0.2 mg/dL (0.2-1.0); URINE WBC 174 /uL (0-25.8)
[2020-12-14] MEDS: INSULIN SLIDING SCALE (NOVOLOG) 1 VIAL SQ SCH ×4 (06:26→21:54)
[2020-12-14] MEDS: BRIMONIDINE TARTRATE 0.2% OPHTHALMIC 5 ML BOTTLE OS SCH ×3 (06:30→21:53)
[2020-12-14] MEDS ORDERED: LOSARTAN POTASSIUM 50 MG TABLET PO SCH (10:00)
[2020-12-14] MEDS: PARoxetine HCL 10 MG TABLET PO SCH (10:09)
[2020-12-14] MEDS: GABAPENTIN 100 MG CAPSULE PO SCH ×2 (10:10→21:48)
[2020-12-14] MEDS: DOCUSATE SODIUM 100 MG CAPSULE (FP) PO SCH (10:10)
[2020-12-14] MEDS: LOSARTAN POTASSIUM 50 MG TABLET PO SCH (10:10)
[2020-12-14] MEDS: LIDOCAINE 5% TOPICAL PATCH TP SCH (10:11)
[2020-12-14] MEDS: acetaZOLAMIDE 250 MG TABLET PO SCH ×2 (10:11→21:49)
[2020-12-14] MEDS: DORZOLAMIDE 2% HCL OPHTHALMIC SOLUTION 10 ML BOTTLE OU SCH ×2 (10:15→21:53)
[2020-12-14] MEDS: TIMOLOL 0.25% OPHTHALMIC SOL 5 ML BOTTLE OU SCH ×2 (10:15→21:53)
[2020-12-14] MEDS ORDERED: PT OWN MED DRAWER 7, Y5N ONE ×2 (10:27→21:07)
[2020-12-14 10:49] LABS: PROTHROMBIN TIME (PATIENT) 63.1 SEC (9.7-13.0)
[2020-12-14 10:52] LABS: ACTIVATED PTT 65.1 SECONDS (25.2-36.5)
[2020-12-14 10:53] LABS: BASO % 0.7 % (0-2.0); EOS % 1.7 % (0-4.5); HEMATOCRIT 34.2 % (32.4-45.2); HEMOGLOBIN 11.4 GM/dL (10.7-15.3); LYMPH % 9.6 % (8-40); MCH 32.2 pg (25.7-33.7); MCHC 33.4 g/dl (32.0-36.0); MEAN CELL VOLUME 96.3 fl (80-96); MEAN PLT VOLUME 7.5 fl (7.5-11.1); MONO % 8.3 % (3.8-10.2); NEUT % 79.7 % (42.8-82.8); PLATELET COUNT 223 10^3/uL (134-434); RBC 3.55 M/mm3 (3.60-5.2); WHITE BLOOD COUNT 4.9 K/mm3 (4.0-10.0)
[2020-12-14 11:17] LABS: INR 5.48 (0.83-1.09)
[2020-12-14 12:43] LABS: ALBUMIN 2.7 g/dl (3.4-5.0); BILIRUBIN,TOTAL 0.3 mg/dL (0.2-1); BLOOD UREA NITROGEN 38.5 mg/dL (7-18); CALCIUM 8.1 mg/dL (8.5-10.1); CREATININE 3.4 mg/dL (0.55-1.3); MAGNESIUM 2.1 mg/dL (1.8-2.4); PHOSPHOROUS 5.4 mg/dL (2.5-4.9); TOT PROT 6.1 g/dl (6.4-8.2)
[2020-12-14] MEDS ORDERED: SODIUM CHLORIDE 250 ML IV PRN (14:17)
[2020-12-14] MEDS: DEXTROSE 5%-0.45% SALINE 1,000 ML IV SCH (21:46)
[2020-12-14] MEDS: LIDOCAINE PATCH REMOVAL MC SCH (21:52)
[2020-12-14] MEDS: LATANOPROST 0.005% OPHTH SOLN 2.5ML BOTTLE OU SCH (21:53)
[2020-12-14] MEDS: oxyCODONE HCL 5 MG TABLET PO PRN (23:58)
[2020-12-15] MEDS: BRIMONIDINE TARTRATE 0.2% OPHTHALMIC 5 ML BOTTLE OS SCH ×2 (06:01→14:32)
[2020-12-15] MEDS: INSULIN SLIDING SCALE (NOVOLOG) 1 VIAL SQ SCH ×3 (07:03→16:54)
[2020-12-15] MEDS: TIMOLOL 0.25% OPHTHALMIC SOL 5 ML BOTTLE OU SCH (09:53)
[2020-12-15] MEDS: DORZOLAMIDE 2% HCL OPHTHALMIC SOLUTION 10 ML BOTTLE OU SCH (09:54)
[2020-12-15 11:49] LABS: INR 3.29 (0.83-1.09); PROTHROMBIN TIME (PATIENT) 39.1 SEC (9.7-13.0)
[2020-12-15 11:55] VITALS: TEMP 98.4
[2020-12-15 11:55] LABS: ALBUMIN 2.8 g/dl (3.4-5.0); BASO % 0.9 % (0-2.0); BLOOD UREA NITROGEN 49.1 mg/dL (7-18); CALCIUM 8.1 mg/dL (8.5-10.1); EOS % 1.7 % (0-4.5); HEMATOCRIT 34.4 % (32.4-45.2); HEMOGLOBIN 11.3 GM/dL (10.7-15.3); LYMPH % 12.2 % (8-40); MAGNESIUM 2.2 mg/dL (1.8-2.4); MCHC 32.9 g/dl (32.0-36.0); MEAN CELL VOLUME 97.3 fl (80-96); MEAN PLT VOLUME 7.8 fl (7.5-11.1); MONO % 10.2 % (3.8-10.2); PLATELET COUNT 202 10^3/uL (134-434); RBC 3.54 M/mm3 (3.60-5.2); RDW 14.3 % (11.6-15.6)
[2020-12-15 11:58] LABS: CREATININE 4.7 mg/dL (0.55-1.3)
[2020-12-15 12:00] LABS: BILIRUBIN,TOTAL 0.3 mg/dL (0.2-1); TOT PROT 6.1 g/dl (6.4-8.2)
[2020-12-15] MEDS: PARoxetine HCL 10 MG TABLET PO SCH (12:51)
[2020-12-15 14:28] VITALS: BP 137/80; PULSE 81
[2020-12-15] MEDS: acetaZOLAMIDE 250 MG TABLET PO SCH (14:31)
[2020-12-15] MEDS: LOSARTAN POTASSIUM 50 MG TABLET PO SCH (14:31)
[2020-12-15] MEDS: DOCUSATE SODIUM 100 MG CAPSULE (FP) PO SCH (14:31)
[2020-12-15] MEDS: GABAPENTIN 100 MG CAPSULE PO SCH (14:32)
[2020-12-15] MEDS: LIDOCAINE 5% TOPICAL PATCH TP SCH (14:32)
[2020-12-15] MEDS ORDERED: PT OWN MED DRAWER 7, Y5N ONE (14:37)
[2020-12-15] MEDS: DEXTROSE 5%-0.45% SALINE 1,000 ML IV SCH (16:54)
[2020-12-19 01:06] LABS: HEP B CORE AB, TOT Negative (Negative)
== END 2020-12-15 17:38 | disposition home or self-care (01) | DRG 661 ==
LOC: JER 23:59 → JERBED 12-13 05:54 → J5S 12-13 13:21
PROVIDERS: ATTEND Nurse Practitioner Family
DX: D68.32 Hemorrhagic disorder due to extrinsic circulating anticoagulants (principal); I12.0 Hypertensive chronic kidney disease with stage 5 chronic kidney disease or end stage renal disease; E11.22 Type 2 diabetes mellitus with diabetic chronic kidney disease; N18.6 End stage renal disease; K62.7 Radiation proctitis; Z99.2 Dependence on renal dialysis; H40.9 Unspecified glaucoma; F32.9 Major depressive disorder, single episode, unspecified; F41.9 Anxiety disorder, unspecified; D64.9 Anemia, unspecified; K62.5 Hemorrhage of anus and rectum; Q61.2 Polycystic kidney, adult type; I73.9 Peripheral vascular disease, unspecified; Z79.4 Long term (current) use of insulin; Z86.16 Personal history of COVID-19; E66.01 Morbid (severe) obesity due to excess calories; Z68.36 Body mass index [BMI] 36.0-36.9, adult; T45.515A Adverse effect of anticoagulants, initial encounter; Y84.2 Radiological procedure and radiotherapy as the cause of abnormal reaction of the patient, or of later complication, without mention of misadventure at the time of the procedure
CPT/HCPCS: 36415; 74176-TC; 74177-TC; 80053; 81003; 82272; 82550; 82553; 82962; 83735; 84100; 84484; 84703; 85025; 85027; 85610; 85730; 86140; 86704; 86706; 86707; 86708; 86709; 86803; 86850; 86900; 86901; 87077; 87086; 87340; 93005; 93010; 99285-25; C9803; J0131; U0003; U0005

== ENCOUNTER 2021-01-01 13:34 | Observation (INO) | payer OTHER ==
[2021-01-01 14:32] VITALS: BMI 34.7
[2021-01-01] MEDS ORDERED: ACETAMINOPHEN 1000 MG/100 ML VIAL (NON FORMULARY) IVPB ONE (14:50)
[2021-01-01] MEDS ORDERED: HEPARIN NA (PORCINE) 5,000 UNITS/ML 1ML VIAL IVPUSH PRN ×2 (15:43)
[2021-01-01] MEDS ORDERED: HEPARIN NA (PORCINE) 5,000 UNITS/ML 1ML VIAL IVPUSH ONE (15:44)
[2021-01-01] MEDS ORDERED: HEPARIN SOD,PORK IN 0.45% NACL 25,000 UNITS/500 ML INFUS.BAG IVPB SCH (15:45)
[2021-01-01] MEDS ORDERED: ACETAMINOPHEN INJECTION 100 ML IVPB ONE (16:11)
[2021-01-01] MEDS ORDERED: HEPARIN NA (PORCINE) 5,000 UNITS/ML 1ML VIAL ONE (16:12)
[2021-01-01 16:43] LABS: HEMATOCRIT 28.3 % (32.4-45.2); HEMOGLOBIN 9.7 GM/dL (10.7-15.3); MCH 32.6 pg (25.7-33.7); MCHC 34.2 g/dl (32.0-36.0); MEAN CELL VOLUME 95.4 fl (80-96); MEAN PLT VOLUME 7.5 fl (7.5-11.1); PLATELET COUNT 184 10^3/uL (134-434); RBC 2.96 M/mm3 (3.60-5.2); RDW 13.5 % (11.6-15.6); WHITE BLOOD COUNT 6.1 K/mm3 (4.0-10.0)
[2021-01-01 16:57] LABS: INR 0.91 (0.83-1.09)
[2021-01-01 17:00] LABS: ACTIVATED PTT 29.5 SECONDS (25.2-36.5)
[2021-01-01 17:01] LABS: CHLORIDE 108 mmol/L (98-107); SODIUM 140 mmol/L (136-145)
[2021-01-01 17:03] LABS: CALCIUM 8.4 mg/dL (8.5-10.1)
[2021-01-01 17:04] LABS: ANION GAP 9 MMOL/L (8-16); BLOOD UREA NITROGEN 58.1 mg/dL (7-18); CO2 23 mmol/L (21-32); GLUCOSE,RANDOM 147 mg/dL (74-106)
[2021-01-01 17:06] LABS: SGPT/ALT 15 U/L (13-61)
[2021-01-01 17:07] LABS: SGOT/AST 12 U/L (15-37)
[2021-01-01 17:08] LABS: BILIRUBIN,TOTAL 0.2 mg/dL (0.2-1); TOT PROT 6.9 g/dl (6.4-8.2)
[2021-01-01 17:09] LABS: ALK PHOS 107 U/L (45-117)
[2021-01-01] MEDS ORDERED: PATIENT'S OWN MEDICATION (NON-FORMULARY) (Dulaglutide [Trulicity] 1.5 MG/0.5 ML Pen.Injctr SQ SCH (17:45)
[2021-01-01] MEDS: INSULIN SLIDING SCALE (NOVOLOG) 1 VIAL SQ SCH (18:44)
[2021-01-01] MEDS ORDERED: GABAPENTIN 100 MG CAPSULE ONE (21:55)
[2021-01-01] MEDS ORDERED: INSULIN (LEVEMIR) 100 UNITS/ML UNITS SQ ONE (21:56)
[2021-01-01] MEDS: BRIMONIDINE TARTRATE 0.2% OPHTHALMIC 5 ML BOTTLE OS SCH (22:23)
[2021-01-01] MEDS: acetaZOLAMIDE 250 MG TABLET PO SCH (22:24)
[2021-01-01] MEDS: TIMOLOL 0.25% OPHTHALMIC SOL 5 ML BOTTLE OU SCH (22:24)
[2021-01-01] MEDS: INSULIN (LEVEMIR) 100 UNITS/ML UNITS SQ SCH (22:24)
[2021-01-01] MEDS: GABAPENTIN 100 MG CAPSULE PO SCH (22:24)
[2021-01-02] MEDS: INSULIN SLIDING SCALE (NOVOLOG) 1 VIAL SQ SCH ×3 (06:19→16:35)
[2021-01-02] MEDS: INSULIN (LEVEMIR) 100 UNITS/ML UNITS SQ SCH ×2 (06:20→22:26)
[2021-01-02] MEDS: BRIMONIDINE TARTRATE 0.2% OPHTHALMIC 5 ML BOTTLE OS SCH ×3 (06:20→22:28)
[2021-01-02] MEDS ORDERED: FERROUS SO4 325 MG TABLET (FP) PO SCH (08:00)
[2021-01-02 09:29] LABS: BASO % 0.7 % (0-2.0); EOS % 2.2 % (0-4.5); HEMATOCRIT 28.8 % (32.4-45.2); HEMOGLOBIN 9.9 GM/dL (10.7-15.3); LYMPH % 11.9 % (8-40); MCHC 34.2 g/dl (32.0-36.0); MEAN CELL VOLUME 96.4 fl (80-96); MEAN PLT VOLUME 8.2 fl (7.5-11.1); MONO % 6.3 % (3.8-10.2); NEUT % 78.9 % (42.8-82.8); PLATELET COUNT 183 10^3/uL (134-434); RBC 2.99 M/mm3 (3.60-5.2); RDW 13.9 % (11.6-15.6); WHITE BLOOD COUNT 5.5 K/mm3 (4.0-10.0)
[2021-01-02] MEDS ORDERED: LOSARTAN POTASSIUM 50 MG TABLET PO SCH (10:00)
[2021-01-02] MEDS ORDERED: DEXTROSE 50%-WATER - 25 GM/50 ML VIAL IVPUSH ONE (10:43)
[2021-01-02] MEDS ORDERED: MIDAZOLAM HCL 2 MG/2 ML SINGLE DOSE VIAL ONE (11:00)
[2021-01-02] MEDS: acetaZOLAMIDE 250 MG TABLET PO SCH ×2 (11:07→22:56)
[2021-01-02] MEDS: SEVELAMER CARBONATE 800 MG TAB (FP) PO SCH ×3 (11:07→16:37)
[2021-01-02] MEDS: GABAPENTIN 100 MG CAPSULE PO SCH ×2 (11:07→22:27)
[2021-01-02] MEDS: TIMOLOL 0.25% OPHTHALMIC SOL 5 ML BOTTLE OU SCH ×2 (11:07→22:34)
[2021-01-02 11:15] LABS: BLOOD UREA NITROGEN 72.3 mg/dL (7-18); CALCIUM 8.2 mg/dL (8.5-10.1); CREATININE 5.6 mg/dL (0.55-1.3)
[2021-01-02] MEDS ORDERED: LIDOCAINE HCL 1%, 10 MG/ML (20ML VIAL) ONE (11:29)
[2021-01-02] MEDS ORDERED: HEPARIN NA (PORCINE) 5,000 UNITS/ML 1ML VIAL ONE (11:29)
[2021-01-02] MEDS ORDERED: SODIUM CHLORIDE 250 ML IV PRN (11:47)
[2021-01-02] MEDS ORDERED: ceFAZolin SODIUM 1 GM VIAL IVPB ONE (12:05)
[2021-01-02] MEDS ORDERED: IOHEXOL 300 MG/ML INFUS..BTL IV ONE (12:24)
[2021-01-02] MEDS ORDERED: LIDOCAINE HCL 1%, 10 MG/ML (20ML VIAL) INF ONE (12:26)
[2021-01-02] MEDS ORDERED: ONDANSETRON 4 MG/2 ML VIAL IVPUSH PRN (12:54)
[2021-01-02] MEDS ORDERED: SODIUM CHLORIDE 1,000 ML IV SCH (13:00)
[2021-01-02] MEDS ORDERED: HEPARIN SOD,PORK IN 0.45% NACL 25,000 UNITS/500 ML INFUS.BAG IVPB SCH ×2 (13:39→16:00)
[2021-01-02] MEDS ORDERED: DULAGLUTIDE SQ SCH (13:39)
[2021-01-02] MEDS ORDERED: HEPARIN NA (PORCINE) 5,000 UNITS/ML 1ML VIAL IVPUSH PRN ×4 (13:39→16:00)
[2021-01-02] MEDS ORDERED: LANTHANUM CARBONATE PO SCH (14:00)
[2021-01-02] MEDS ORDERED: LORATADINE 10 MG TABLET PO ONE (16:29)
[2021-01-02] MEDS ORDERED: PT OWN MED DRAWER 7, Y5N ONE ×3 (21:57→22:49)
[2021-01-02] MEDS ORDERED: LATANOPROST 0.005% OPHTH SOLN 2.5ML BOTTLE OU SCH (22:00)
[2021-01-02] MEDS: BENZOCAINE/MENTH/CETYLPYRD CL 1 EACH LOZENGE MM PRN (22:35)
[2021-01-02] MEDS: LATANOPROST 0.005% OPHTH SOLN 2.5ML BOTTLE OU SCH (22:56)
[2021-01-03] MEDS: INSULIN SLIDING SCALE (NOVOLOG) 1 VIAL SQ SCH ×3 (06:33→17:28)
[2021-01-03] MEDS: BRIMONIDINE TARTRATE 0.2% OPHTHALMIC 5 ML BOTTLE OS SCH ×3 (06:33→21:40)
[2021-01-03] MEDS: INSULIN (LEVEMIR) 100 UNITS/ML UNITS SQ SCH ×2 (06:34→21:38)
[2021-01-03] MEDS: SEVELAMER CARBONATE 800 MG TAB (FP) PO SCH ×3 (08:44→21:36)
[2021-01-03] MEDS: FERROUS SO4 325 MG TABLET (FP) PO SCH (08:44)
[2021-01-03] MEDS ORDERED: EPOETIN ALFA-EPBX 3,000 UNIT/ML VIAL SQ ONE ×2 (10:00→11:47)
[2021-01-03] MEDS: LORATADINE 10 MG TABLET PO SCH (10:14)
[2021-01-03] MEDS: CLOPIDOGREL BISULFATE 75 MG TABLET (FP) PO SCH (10:15)
[2021-01-03] MEDS: GABAPENTIN 100 MG CAPSULE PO SCH ×2 (10:15→21:37)
[2021-01-03] MEDS: BENZOCAINE/MENTH/CETYLPYRD CL 1 EACH LOZENGE MM PRN (10:16)
[2021-01-03] MEDS: acetaZOLAMIDE 250 MG TABLET PO SCH ×2 (10:16→21:43)
[2021-01-03] MEDS: LOSARTAN POTASSIUM 50 MG TABLET PO SCH (10:18)
[2021-01-03] MEDS: ASPIRIN COATED 81 MG TABLET.EC PO SCH (10:18)
[2021-01-03] MEDS: TIMOLOL 0.25% OPHTHALMIC SOL 5 ML BOTTLE OU SCH ×2 (10:18→21:41)
[2021-01-03] MEDS ORDERED: SODIUM CHLORIDE 250 ML IV PRN (13:00)
[2021-01-03 14:23] LABS: BASO % 0.5 % (0-2.0); HEMATOCRIT 26.1 % (32.4-45.2); HEMOGLOBIN 8.8 GM/dL (10.7-15.3); LYMPH % 7.4 % (8-40); MCH 32.2 pg (25.7-33.7); MCHC 33.9 g/dl (32.0-36.0); MEAN CELL VOLUME 94.8 fl (80-96); MEAN PLT VOLUME 7.8 fl (7.5-11.1); MONO % 7.2 % (3.8-10.2); NEUT % 82.9 % (42.8-82.8); PLATELET COUNT 166 10^3/uL (134-434); RBC 2.75 M/mm3 (3.60-5.2); RDW 13.8 % (11.6-15.6); WHITE BLOOD COUNT 5.7 K/mm3 (4.0-10.0)
[2021-01-03 15:03] LABS: CALCIUM 7.6 mg/dL (8.5-10.1)
[2021-01-03 15:04] LABS: ALBUMIN 2.5 g/dl (3.4-5.0); MAGNESIUM 1.9 mg/dL (1.8-2.4)
[2021-01-03 15:07] LABS: CREATININE 2.6 mg/dL (0.55-1.3)
[2021-01-03 15:08] LABS: BILIRUBIN,TOTAL 0.2 mg/dL (0.2-1); TOT PROT 5.7 g/dl (6.4-8.2)
[2021-01-03 15:17] LABS: BLOOD UREA NITROGEN 32.1 mg/dL (7-18)
[2021-01-03] MEDS ORDERED: DEXTROSE 50%-WATER 25 GM/50 ML DISP.SYRIN ONE (20:30)
[2021-01-03] MEDS ORDERED: DEXTROSE 50%-WATER - 25 GM/50 ML VIAL IVPUSH ONE (20:32)
[2021-01-03] MEDS ORDERED: PT OWN MED DRAWER 7, Y5N ONE (21:33)
[2021-01-03] MEDS: LATANOPROST 0.005% OPHTH SOLN 2.5ML BOTTLE OU SCH (21:42)
[2021-01-04] MEDS ORDERED: INSULIN SLIDING SCALE (NOVOLOG) 1 VIAL SQ ONE (06:01)
[2021-01-04] MEDS: INSULIN (LEVEMIR) 100 UNITS/ML UNITS SQ SCH (06:16)
[2021-01-04] MEDS: BRIMONIDINE TARTRATE 0.2% OPHTHALMIC 5 ML BOTTLE OS SCH ×2 (06:17→14:03)
[2021-01-04] MEDS: INSULIN SLIDING SCALE (NOVOLOG) 1 VIAL SQ SCH ×3 (06:17→17:32)
[2021-01-04] MEDS ORDERED: PT OWN MED DRAWER 7, Y5N ONE ×2 (09:24→09:46)
[2021-01-04] MEDS: LORATADINE 10 MG TABLET PO SCH (09:27)
[2021-01-04] MEDS: FERROUS SO4 325 MG TABLET (FP) PO SCH (09:27)
[2021-01-04] MEDS: SEVELAMER CARBONATE 800 MG TAB (FP) PO SCH ×3 (09:27→17:33)
[2021-01-04] MEDS: CLOPIDOGREL BISULFATE 75 MG TABLET (FP) PO SCH (09:27)
[2021-01-04] MEDS: acetaZOLAMIDE 250 MG TABLET PO SCH (09:27)
[2021-01-04] MEDS: LOSARTAN POTASSIUM 50 MG TABLET PO SCH (09:27)
[2021-01-04] MEDS: ASPIRIN COATED 81 MG TABLET.EC PO SCH (09:27)
[2021-01-04] MEDS: GABAPENTIN 100 MG CAPSULE PO SCH (09:27)
[2021-01-04] MEDS: TIMOLOL 0.25% OPHTHALMIC SOL 5 ML BOTTLE OU SCH (09:28)
[2021-01-04 10:04] LABS: BASO % 0.6 % (0-2.0); EOS % 1.1 % (0-4.5); HEMATOCRIT 30.1 % (32.4-45.2); LYMPH % 10.2 % (8-40); MCH 32.4 pg (25.7-33.7); MCHC 33.3 g/dl (32.0-36.0); MEAN CELL VOLUME 97.1 fl (80-96); MEAN PLT VOLUME 7.7 fl (7.5-11.1); MONO % 6.9 % (3.8-10.2); NEUT % 81.2 % (42.8-82.8); PLATELET COUNT 194 10^3/uL (134-434); RDW 13.8 % (11.6-15.6); WHITE BLOOD COUNT 7.7 K/mm3 (4.0-10.0)
[2021-01-04 10:42] LABS: ALBUMIN 2.8 g/dl (3.4-5.0); BLOOD UREA NITROGEN 42.8 mg/dL (7-18); MAGNESIUM 2.1 mg/dL (1.8-2.4)
[2021-01-04 10:43] LABS: CREATININE 4.2 mg/dL (0.55-1.3)
[2021-01-04 10:45] LABS: BILIRUBIN,TOTAL 0.3 mg/dL (0.2-1); TOT PROT 6.2 g/dl (6.4-8.2)
[2021-01-04] MEDS ORDERED: traMADol HCL 50 MG TABLET PO PRN (11:54)
[2021-01-04] MEDS ORDERED: SODIUM CHLORIDE 250 ML IV PRN (15:47)
[2021-01-04 18:19] VITALS: BP 122/75; PULSE 91; TEMP 98.5
[2021-01-05] MEDS ORDERED: EPOETIN ALFA-EPBX 3,000 UNIT/ML VIAL SQ ONE (15:47)
== END 2021-01-04 19:08 | disposition home or self-care (01) ==
LOC: JER 13:34 → UNDOADMOB 17:15 → INTOOBSV 17:15 → JERBED 17:15 → J5S 01-02 03:51 → JERBED 01-02 03:51 → J5S 01-02 10:20 → JERBED 01-02 10:20 → J5S 01-02 12:37
PROVIDERS: ADMIT Internal Medicine; ATTEND Nurse Practitioner Acute Care
PROC: 02H633Z Insertion of Infusion Device into Right Atrium, Percutaneous Approach (ICD-10-PCS; 2021-01-02)
PROC: 3E033NZ Introduction of Analgesics, Hypnotics, Sedatives into Peripheral Vein, Percutaneous Approach (ICD-10-PCS; 2021-01-02)
PROC: 3E03329 Introduction of Other Anti-infective into Peripheral Vein, Percutaneous Approach (ICD-10-PCS; 2021-01-02)
PROC: 3E013VG Introduction of Insulin into Subcutaneous Tissue, Percutaneous Approach (ICD-10-PCS; 2021-01-02)
PROC: 3E0337Z Introduction of Electrolytic and Water Balance Substance into Peripheral Vein, Percutaneous Approach (ICD-10-PCS; 2021-01-02)
PROC: 02PY33Z Removal of Infusion Device from Great Vessel, Percutaneous Approach (ICD-10-PCS; principal; 2021-01-02 11:00)
DX: F31.9 Bipolar disorder, unspecified (principal); E11.22 Type 2 diabetes mellitus with diabetic chronic kidney disease; N18.6 End stage renal disease; Z99.2 Dependence on renal dialysis; Z85.41 Personal history of malignant neoplasm of cervix uteri; H40.9 Unspecified glaucoma; H54.40 Blindness, one eye, unspecified eye; U07.1 COVID-19; Q61.3 Polycystic kidney, unspecified; E66.9 Obesity, unspecified; Z68.35 Body mass index [BMI] 35.0-35.9, adult; Z29.9 Encounter for prophylactic measures, unspecified; F17.210 Nicotine dependence, cigarettes, uncomplicated; T82.49XA Other complication of vascular dialysis catheter, initial encounter; X58.XXXA Exposure to other specified factors, initial encounter; Y92.9 Unspecified place or not applicable; Y92.89 Other specified places as the place of occurrence of the external cause
CPT/HCPCS: 36415; 71045-TC-FY; 76000-TC-FY; 80048; 80053; 82550; 82553; 82962; 83735; 84484; 84703; 85025; 85027; 85610; 85730; 86704; 86705; 86706; 86708; 86803; 87340; 87517; 93005; 93010; 93306-TC; 94760; 96361; 96365; 96367; 96372; 96375; 99285-25; C9803; G0378; J0131; J1644; Q5106; U0003; U0005

== ENCOUNTER 2021-02-08 04:55 | Day surgery (SDC) | payer OTHER ==
[2021-02-07 15:45] VITALS: BMI 34.7
[2021-02-08] MEDS ORDERED: HEPARIN NA (PORCINE) 5,000 UNITS/ML 1ML VIAL ONE (13:28)
[2021-02-08] MEDS ORDERED: PAPAVERINE HCL 30 MG/1 ML 10 ML VIAL NR ONE (13:28)
[2021-02-08] MEDS ORDERED: POVIDONE-IODINE OINTMENT 10% - 28.4 GM TUBE ONE (13:28)
[2021-02-08] MEDS ORDERED: LIDOCAINE HCL 1%, 10 MG/ML (20ML VIAL) ONE (13:28)
[2021-02-08] MEDS ORDERED: MIDAZOLAM HCL 2 MG/2 ML SINGLE DOSE VIAL ONE (13:53)
[2021-02-08] MEDS ORDERED: PROPOFOL 20 ML ONE (13:53)
[2021-02-08] MEDS ORDERED: oxyCODONE HCL 5 MG TABLET PO PRN (14:59)
[2021-02-08] MEDS ORDERED: PROMETHAZINE HCL 25 MG/1 ML VIAL IVPUSH PRN (14:59)
[2021-02-08] MEDS ORDERED: ONDANSETRON 4 MG/2 ML VIAL IVPUSH PRN (14:59)
[2021-02-08] MEDS ORDERED: ceFAZolin SODIUM 1 GM VIAL IVPB ONE (15:00)
[2021-02-08] MEDS ORDERED: LIDOCAINE HCL 1%, 10 MG/ML (20ML VIAL) NR ONE ×2 (15:06)
[2021-02-08] MEDS ORDERED: ONDANSETRON 4 MG/2 ML VIAL ONE (16:59)
[2021-02-08 18:32] VITALS: BP 150/80; PULSE 84; TEMP 97.8
[2021-02-08] MEDS ORDERED: GENTAMICIN SO4 0.1% TOPICAL OINTMENT 15 GM/TUBE TUBE TP SCH (22:00)
== END 2021-02-08 17:40 | disposition home or self-care (01) ==
LOC: JASU-SURG 04:55
PROVIDERS: ATTEND Surgery
PROC: 05WY07Z Revision of Autologous Tissue Substitute in Upper Vein, Open Approach (ICD-10-PCS; principal; 2021-02-08 14:00)
DX: E11.22 Type 2 diabetes mellitus with diabetic chronic kidney disease (principal); I12.0 Hypertensive chronic kidney disease with stage 5 chronic kidney disease or end stage renal disease; N18.6 End stage renal disease; Z99.2 Dependence on renal dialysis; Z79.4 Long term (current) use of insulin; Z85.41 Personal history of malignant neoplasm of cervix uteri; Z86.16 Personal history of COVID-19; J45.909 Unspecified asthma, uncomplicated; Z79.82 Long term (current) use of aspirin
CPT/HCPCS: 82962; 94760; J1644

== ENCOUNTER 2021-03-01 11:36 | Inpatient (IN) | payer OTHER ==
[2021-03-01] MEDS ORDERED: LACTATED RINGERS SOLUTION 1000 ML INFUS.BAG IV ONE (12:27)
[2021-03-01] MEDS ORDERED: ACETAMINOPHEN 1000 MG/100 ML VIAL (NON FORMULARY) IVPB ONE (12:29)
[2021-03-01] MEDS ORDERED: ACETAMINOPHEN INJECTION 100 ML IVPB ONE (12:45)
[2021-03-01 14:01] LABS: BASO % 1.1 % (0-2.0); EOS % 0.6 % (0-4.5); HEMATOCRIT 20.5 % (32.4-45.2); MCH 32.7 pg (25.7-33.7); MEAN CELL VOLUME 98.9 fl (80-96); MEAN PLT VOLUME 8.2 fl (7.5-11.1); MONO % 4.8 % (3.8-10.2); NEUT % 88.5 % (42.8-82.8); PLATELET COUNT 192 10^3/uL (134-434); RBC 2.08 M/mm3 (3.60-5.2); RDW 20.1 % (11.6-15.6); WHITE BLOOD COUNT 8.8 K/mm3 (4.0-10.0)
[2021-03-01 14:11] LABS: HEMOGLOBIN 6.8 GM/dL (10.7-15.3)
[2021-03-01 14:21] LABS: CALCIUM 8.2 mg/dL (8.5-10.1)
[2021-03-01 14:22] LABS: ALBUMIN 2.7 g/dl (3.4-5.0); BLOOD UREA NITROGEN 32.7 mg/dL (7-18)
[2021-03-01 14:25] LABS: CREATININE 5.5 mg/dL (0.55-1.3)
[2021-03-01 14:27] LABS: BILIRUBIN,TOTAL 0.4 mg/dL (0.2-1); TOT PROT 6.5 g/dl (6.4-8.2)
[2021-03-02 01:29] VITALS: BMI 35.4
[2021-03-02] MEDS: VANCOMYCIN 250 MG/5 ML ORAL SOLUTION PO SCH ×5 (01:48→23:10)
[2021-03-02] MEDS: PHENYLEPHRINE HCL/COCOA BUTTER SUPPOSITORY RC SCH ×3 (01:49→21:24)
[2021-03-02] MEDS: INSULIN SLIDING SCALE (NOVOLOG) 1 VIAL SQ SCH ×3 (06:32→16:54)
[2021-03-02] MEDS: ASPIRIN COATED 81 MG TABLET.EC PO SCH (09:28)
[2021-03-02 10:37] LABS: HEMATOCRIT 25.3 % (32.4-45.2); HEMOGLOBIN 8.8 GM/dL (10.7-15.3); MCH 32.6 pg (25.7-33.7); MCHC 34.7 g/dl (32.0-36.0); MEAN CELL VOLUME 94.1 fl (80-96); MEAN PLT VOLUME 8.5 fl (7.5-11.1); PLATELET COUNT 182 10^3/uL (134-434); RBC 2.69 M/mm3 (3.60-5.2); WHITE BLOOD COUNT 9.6 K/mm3 (4.0-10.0)
[2021-03-02 10:45] LABS: INR 0.93 (0.83-1.09); PROTHROMBIN TIME (PATIENT) 11.2 SEC (9.7-13.0)
[2021-03-02 10:58] LABS: ALBUMIN 2.3 g/dl (3.4-5.0); CALCIUM 7.8 mg/dL (8.5-10.1)
[2021-03-02 10:59] LABS: BLOOD UREA NITROGEN 33.7 mg/dL (7-18)
[2021-03-02 11:00] LABS: BILIRUBIN,TOTAL 0.5 mg/dL (0.2-1); TOT PROT 5.9 g/dl (6.4-8.2)
[2021-03-02 11:02] LABS: CREATININE 5.9 mg/dL (0.55-1.3)
[2021-03-02] MEDS ORDERED: SODIUM CHLORIDE 250 ML IV PRN (11:30)
[2021-03-02] MEDS ORDERED: EPOETIN ALFA-EPBX 10,000 UNIT/ML VIAL SQ ONE (11:30)
[2021-03-02] MEDS ORDERED: POTASSIUM CHLORIDE TABS 20 MEQ TABLET.ER (FP) PO ONE (12:15)
[2021-03-02] MEDS: oxyCODONE HCL 5 MG TABLET PO PRN (17:38)
[2021-03-02] MEDS: CHOLESTYRAMINE/ASPARTAME 4 GM PACKET PO SCH (18:19)
[2021-03-02] MEDS ORDERED: PT OWN MED DRAWER 7, Y5N ONE (21:01)
[2021-03-02] MEDS: GABAPENTIN 300 MG CAPSULE PO SCH ×2 (21:04→21:23)
[2021-03-02] MEDS: LATANOPROST 0.005% OPHTH SOLN 2.5ML BOTTLE OU SCH (21:09)
[2021-03-02] MEDS: TIMOLOL 0.25% OPHTHALMIC SOL 5 ML BOTTLE OU SCH (21:10)
[2021-03-02] MEDS: BRIMONIDINE TARTRATE 0.2% OPHTHALMIC 5 ML BOTTLE OU SCH (21:10)
[2021-03-03] MEDS: MINERAL OIL/PET HY-PHL TOPICAL OINTMENT 454 GM JAR TP SCH ×2 (02:25→11:10)
[2021-03-03] MEDS: oxyCODONE HCL 5 MG TABLET PO PRN ×2 (02:26→23:25)
[2021-03-03] MEDS: VANCOMYCIN 250 MG/5 ML ORAL SOLUTION PO SCH ×4 (06:34→23:26)
[2021-03-03] MEDS: INSULIN SLIDING SCALE (NOVOLOG) 1 VIAL SQ SCH ×3 (06:36→18:31)
[2021-03-03] MEDS ORDERED: ASPIRIN COATED 81 MG TABLET.EC PO SCH (10:00)
[2021-03-03] MEDS ORDERED: PT OWN MED DRAWER 7, Y5N ONE ×2 (10:51→10:52)
[2021-03-03] MEDS: FERROUS SO4 325 MG TABLET (FP) PO SCH (10:55)
[2021-03-03] MEDS: ASPIRIN COATED 81 MG TABLET.EC PO SCH (10:55)
[2021-03-03] MEDS: CHOLESTYRAMINE/ASPARTAME 4 GM PACKET PO SCH (10:55)
[2021-03-03] MEDS: GABAPENTIN 300 MG CAPSULE PO SCH ×3 (10:55→21:55)
[2021-03-03] MEDS: PHENYLEPHRINE HCL/COCOA BUTTER SUPPOSITORY RC SCH ×2 (10:55→21:54)
[2021-03-03] MEDS: TIMOLOL 0.25% OPHTHALMIC SOL 5 ML BOTTLE OU SCH ×2 (10:57→21:54)
[2021-03-03] MEDS: BRIMONIDINE TARTRATE 0.2% OPHTHALMIC 5 ML BOTTLE OU SCH ×2 (10:58→21:54)
[2021-03-03] MEDS: ZINC OXIDE 20% TOPICAL OINTMENT 30 GM TUBE TP SCH ×2 (10:58→21:53)
[2021-03-03] MEDS: LATANOPROST 0.005% OPHTH SOLN 2.5ML BOTTLE OU SCH (21:54)
[2021-03-04] MEDS: VANCOMYCIN 250 MG/5 ML ORAL SOLUTION PO SCH ×3 (05:55→18:26)
[2021-03-04] MEDS: INSULIN SLIDING SCALE (NOVOLOG) 1 VIAL SQ SCH ×3 (06:03→18:25)
[2021-03-04 08:15] LABS: BASO % 0.7 % (0-2.0); EOS % 1.4 % (0-4.5); HEMATOCRIT 28.7 % (32.4-45.2); HEMOGLOBIN 9.8 GM/dL (10.7-15.3); LYMPH % 7.7 % (8-40); MCHC 34.1 g/dl (32.0-36.0); MONO % 8.6 % (3.8-10.2); NEUT % 81.6 % (42.8-82.8); PLATELET COUNT 203 10^3/uL (134-434); RBC 3.05 M/mm3 (3.60-5.2); RDW 18.3 % (11.6-15.6); WHITE BLOOD COUNT 7.5 K/mm3 (4.0-10.0)
[2021-03-04 08:35] LABS: ALBUMIN 2.3 g/dl (3.4-5.0); CALCIUM 8.3 mg/dL (8.5-10.1)
[2021-03-04 08:36] LABS: BLOOD UREA NITROGEN 23.6 mg/dL (7-18)
[2021-03-04 08:39] LABS: CREATININE 5.1 mg/dL (0.55-1.3); PHOSPHOROUS 4.8 mg/dL (2.5-4.9)
[2021-03-04 08:40] LABS: BILIRUBIN,TOTAL 0.4 mg/dL (0.2-1)
[2021-03-04] MEDS ORDERED: ZINC OXIDE 20% TOPICAL OINTMENT 30 GM TUBE TP SCH (09:48)
[2021-03-04] MEDS ORDERED: PT OWN MED DRAWER 7, Y5N ONE ×2 (10:25→18:26)
[2021-03-04] MEDS: GABAPENTIN 300 MG CAPSULE PO SCH (10:37)
[2021-03-04] MEDS: FERROUS SO4 325 MG TABLET (FP) PO SCH (10:37)
[2021-03-04] MEDS: PHENYLEPHRINE HCL/COCOA BUTTER SUPPOSITORY RC SCH (10:38)
[2021-03-04] MEDS: ASPIRIN COATED 81 MG TABLET.EC PO SCH (10:38)
[2021-03-04] MEDS: BRIMONIDINE TARTRATE 0.2% OPHTHALMIC 5 ML BOTTLE OU SCH (10:39)
[2021-03-04] MEDS: TIMOLOL 0.25% OPHTHALMIC SOL 5 ML BOTTLE OU SCH (10:42)
[2021-03-04] MEDS: CHOLESTYRAMINE/ASPARTAME 4 GM PACKET PO SCH (10:44)
[2021-03-04] MEDS ORDERED: EPOETIN ALFA-EPBX 10,000 UNIT/ML VIAL IVPUSH ONE (13:00)
[2021-03-04 15:51] VITALS: TEMP 98.7
[2021-03-04 18:02] VITALS: BP 143/90; PULSE 90
== END 2021-03-04 20:16 | disposition home or self-care (01) | DRG 248 ==
LOC: JER 11:36 → JERBED 17:29 → J8W 23:33
PROVIDERS: ATTEND Internal Medicine
PROC: 30233N1 Transfusion of Nonautologous Red Blood Cells into Peripheral Vein, Percutaneous Approach (ICD-10-PCS; principal; 2021-03-01)
PROC: 5A1D70Z Performance of Urinary Filtration, Intermittent, Less than 6 Hours Per Day (ICD-10-PCS; 2021-03-02)
PROC: 5A1D70Z Performance of Urinary Filtration, Intermittent, Less than 6 Hours Per Day (ICD-10-PCS; 2021-03-04)
DX: A04.71 Enterocolitis due to Clostridium difficile, recurrent (principal); I12.0 Hypertensive chronic kidney disease with stage 5 chronic kidney disease or end stage renal disease; N18.6 End stage renal disease; E11.22 Type 2 diabetes mellitus with diabetic chronic kidney disease; C53.9 Malignant neoplasm of cervix uteri, unspecified; J45.909 Unspecified asthma, uncomplicated; E11.51 Type 2 diabetes mellitus with diabetic peripheral angiopathy without gangrene; E87.6 Hypokalemia; F31.9 Bipolar disorder, unspecified; D63.1 Anemia in chronic kidney disease; I25.10 Atherosclerotic heart disease of native coronary artery without angina pectoris; F41.8 Other specified anxiety disorders; Q61.3 Polycystic kidney, unspecified; Z99.2 Dependence on renal dialysis
CPT/HCPCS: 36415; 36430; 36511; 80053; 82962; 84100; 85025; 85027; 85610; 86803; 86850; 86900; 86901; 86922; 87045; 87046; 87324; 87340; 87449; 87522; 93005; 93010; 99285-25; C9803; J0131; P9038; P9058; Q5106; U0003; U0005

== ENCOUNTER 2021-05-20 12:20 | Inpatient (IN) | payer OTHER ==
[~2021-05-20 12:20] MED LIST changes: -CARBOPLATIN IVPB ONE; -DEXAMETHASONE SODIUM PHOSPHATE 12 MG in SODIUM CHLORIDE 50 ML IVPB ONE; -PALONOSETRON HCL 0.25 MG/5 ML VIAL IVPUSH ONE; +SODIUM CHLORIDE 250 ML IV PRN; -SODIUM CHLORIDE IVPB ONE
[2021-05-20 12:45] VITALS: BMI 33.9
[2021-05-20] MEDS ORDERED: SODIUM CHLORIDE 0.9% 500 ML INFUS.BAG IV ONE ×2 (14:26→14:33)
[2021-05-20] MEDS ORDERED: EPOETIN ALFA-EPBX 10,000 UNIT/ML VIAL SQ ONE (15:14)
[2021-05-20 15:16] LABS: BASO % 0.4 % (0-2.0); EOS % 1.5 % (0-4.5); HEMATOCRIT 31.6 % (32.4-45.2); HEMOGLOBIN 10.4 GM/dL (10.7-15.3); LYMPH % 5.7 % (8-40); MCH 30.1 pg (25.7-33.7); MCHC 32.9 g/dl (32.0-36.0); MEAN CELL VOLUME 91.5 fl (80-96); MONO % 5.4 % (3.8-10.2); RBC 3.45 M/mm3 (3.60-5.2); RDW 14.2 % (11.6-15.6); WHITE BLOOD COUNT 8.5 K/mm3 (4.0-10.0)
[2021-05-20 15:18] LABS: MEAN PLT VOLUME 9.7 fl (7.5-11.1); PLATELET COUNT 113 10^3/uL (134-434)
[2021-05-20 15:34] LABS: CHLORIDE 105 mmol/L (98-107); SODIUM 140 mmol/L (136-145)
[2021-05-20 15:36] LABS: ALBUMIN 2.9 g/dl (3.4-5.0); ANION GAP 12 MMOL/L (8-16); CALCIUM 8.8 mg/dL (8.5-10.1); CO2 24 mmol/L (21-32); MAGNESIUM 2.5 mg/dL (1.8-2.4)
[2021-05-20 15:37] LABS: GLUCOSE,RANDOM 182 mg/dL (74-106)
[2021-05-20 15:38] LABS: PLATELET ESTIMATE DECREASED
[2021-05-20 15:39] LABS: PHOSPHOROUS 5.1 mg/dL (2.5-4.9); SGPT/ALT 17 U/L (13-61)
[2021-05-20 15:40] LABS: CREATININE 6.2 mg/dL (0.55-1.3); SGOT/AST 20 U/L (15-37)
[2021-05-20 15:41] LABS: BILIRUBIN,TOTAL 0.5 mg/dL (0.2-1); TOT PROT 6.9 g/dl (6.4-8.2)
[2021-05-20 15:42] LABS: ALK PHOS 120 U/L (45-117)
[2021-05-20] MEDS ORDERED: HEPARIN NA (PORCINE) 5,000 UNITS/ML 1ML VIAL ONE (22:53)
[2021-05-20] MEDS: HEPARIN NA (PORCINE) 5,000 UNITS/ML 1ML VIAL SQ SCH (23:02)
[2021-05-21] MEDS: HEPARIN NA (PORCINE) 5,000 UNITS/ML 1ML VIAL SQ SCH ×3 (06:30→21:00)
[2021-05-21] MEDS ORDERED: PEG 3350/NA SULF BICARB CL/KCL 4000 ML SOLN.RECON PO ONE (09:00)
[2021-05-21 09:07] LABS: BASO % 0.4 % (0-2.0); EOS % 1.9 % (0-4.5); HEMATOCRIT 29.6 % (32.4-45.2); HEMOGLOBIN 9.7 GM/dL (10.7-15.3); LYMPH % 10.8 % (8-40); MCH 30.3 pg (25.7-33.7); MCHC 32.7 g/dl (32.0-36.0); MEAN CELL VOLUME 92.7 fl (80-96); MEAN PLT VOLUME 8.7 fl (7.5-11.1); MONO % 6.7 % (3.8-10.2); NEUT % 80.2 % (42.8-82.8); PLATELET COUNT 163 10^3/uL (134-434); RBC 3.19 M/mm3 (3.60-5.2); RDW 14.1 % (11.6-15.6); WHITE BLOOD COUNT 6.4 K/mm3 (4.0-10.0)
[2021-05-21 09:25] LABS: CALCIUM 8.2 mg/dL (8.5-10.1)
[2021-05-21 09:26] LABS: BLOOD UREA NITROGEN 73.7 mg/dL (7-18); MAGNESIUM 2.3 mg/dL (1.8-2.4)
[2021-05-21 09:27] LABS: ALBUMIN 2.4 g/dl (3.4-5.0)
[2021-05-21 09:29] LABS: CREATININE 6.9 mg/dL (0.55-1.3); PHOSPHOROUS 5.5 mg/dL (2.5-4.9)
[2021-05-21 09:30] LABS: BILIRUBIN,TOTAL 0.4 mg/dL (0.2-1); TOT PROT 5.8 g/dl (6.4-8.2)
[2021-05-21] MEDS ORDERED: EPOETIN ALFA-EPBX 3,000 UNIT/ML VIAL SQ ONE (11:00)
[2021-05-21] MEDS ORDERED: POTASSIUM CHLORIDE TABS 20 MEQ TABLET.ER (FP) PO ONE (14:30)
[2021-05-21] MEDS: LORATADINE 10 MG TABLET PO SCH (15:59)
[2021-05-21] MEDS: LATANOPROST 0.005% OPHTH SOLN 2.5ML BOTTLE OU SCH (16:00)
[2021-05-21] MEDS: INSULIN SLIDING SCALE (NOVOLOG) 1 VIAL SQ SCH ×2 (17:26→21:04)
[2021-05-21] MEDS ORDERED: BISACODYL 5 MG TABLET.DR (FP) PO ONE (20:00)
[2021-05-21] MEDS: TIMOLOL 0.25% OPHTHALMIC SOL 5 ML BOTTLE OU SCH (21:01)
[2021-05-21] MEDS: SEVELAMER CARBONATE 800 MG TAB (FP) PO SCH (21:01)
[2021-05-21] MEDS: GABAPENTIN 300 MG CAPSULE PO SCH (21:01)
[2021-05-21] MEDS: BRIMONIDINE TARTRATE 0.2% OPHTHALMIC 5 ML BOTTLE OS SCH (21:02)
[2021-05-22] MEDS: HEPARIN NA (PORCINE) 5,000 UNITS/ML 1ML VIAL SQ SCH ×3 (06:12→22:42)
[2021-05-22] MEDS: INSULIN SLIDING SCALE (NOVOLOG) 1 VIAL SQ SCH ×4 (06:12→22:45)
[2021-05-22] MEDS: SEVELAMER CARBONATE 800 MG TAB (FP) PO SCH ×3 (08:00→18:01)
[2021-05-22] MEDS ORDERED: PEG 3350/NA SULF BICARB CL/KCL 4000 ML SOLN.RECON PO ONE (09:00)
[2021-05-22] MEDS: LORATADINE 10 MG TABLET PO SCH (11:55)
[2021-05-22] MEDS ORDERED: INSULIN (NOVOLOG) ASPART 100 UNITS/ML 10ML VIAL ONE (12:14)
[2021-05-22 12:40] LABS: BASO % 0.4 % (0-2.0); EOS % 1.1 % (0-4.5); HEMATOCRIT 29.6 % (32.4-45.2); HEMOGLOBIN 9.8 GM/dL (10.7-15.3); LYMPH % 10.3 % (8-40); MCH 30.2 pg (25.7-33.7); MCHC 33.2 g/dl (32.0-36.0); MEAN CELL VOLUME 90.9 fl (80-96); MEAN PLT VOLUME 8.4 fl (7.5-11.1); MONO % 7.6 % (3.8-10.2); NEUT % 80.6 % (42.8-82.8); PLATELET COUNT 150 10^3/uL (134-434); RBC 3.25 M/mm3 (3.60-5.2); RDW 14.1 % (11.6-15.6); WHITE BLOOD COUNT 6.4 K/mm3 (4.0-10.0)
[2021-05-22] MEDS: TIMOLOL 0.25% OPHTHALMIC SOL 5 ML BOTTLE OU SCH ×2 (12:45→22:46)
[2021-05-22] MEDS: BRIMONIDINE TARTRATE 0.2% OPHTHALMIC 5 ML BOTTLE OS SCH ×2 (12:46→22:45)
[2021-05-22] MEDS: LATANOPROST 0.005% OPHTH SOLN 2.5ML BOTTLE OU SCH (12:46)
[2021-05-22 12:47] LABS: INR 1.06 (0.83-1.09); PROTHROMBIN TIME (PATIENT) 11.9 SEC (9.7-13.0)
[2021-05-22 13:38] LABS: CALCIUM 8.4 mg/dL (8.5-10.1)
[2021-05-22 13:41] LABS: BLOOD UREA NITROGEN 36.2 mg/dL (7-18); CREATININE 4.3 mg/dL (0.55-1.3); PHOSPHOROUS 3.8 mg/dL (2.5-4.9)
[2021-05-22] MEDS ORDERED: POTASSIUM CHLORIDE TABS 20 MEQ TABLET.ER (FP) PO ONE (13:44)
[2021-05-22] MEDS ORDERED: BISACODYL 5 MG TABLET.DR (FP) PO ONE (20:00)
[2021-05-22] MEDS ORDERED: PT OWN MED DRAWER 7, Y5N ONE (21:49)
[2021-05-22] MEDS: GABAPENTIN 300 MG CAPSULE PO SCH (22:42)
[2021-05-23] MEDS: INSULIN SLIDING SCALE (NOVOLOG) 1 VIAL SQ SCH ×4 (06:14→21:32)
[2021-05-23] MEDS: SEVELAMER CARBONATE 800 MG TAB (FP) PO SCH ×3 (07:59→17:14)
[2021-05-23] MEDS ORDERED: LOPERAMIDE HCL 2 MG CAPSULE PO PRN (09:00)
[2021-05-23] MEDS ORDERED: PT OWN MED DRAWER 7, Y5N ONE ×4 (10:57→21:28)
[2021-05-23] MEDS ORDERED: SODIUM CHLORIDE 250 ML IV PRN (11:01)
[2021-05-23] MEDS: BRIMONIDINE TARTRATE 0.2% OPHTHALMIC 5 ML BOTTLE OS SCH ×2 (12:09→21:32)
[2021-05-23] MEDS: TIMOLOL 0.25% OPHTHALMIC SOL 5 ML BOTTLE OU SCH ×2 (12:09→21:33)
[2021-05-23] MEDS: LATANOPROST 0.005% OPHTH SOLN 2.5ML BOTTLE OU SCH (13:00)
[2021-05-23] MEDS: LORATADINE 10 MG TABLET PO SCH (13:00)
[2021-05-23] MEDS: VANCOMYCIN 250 MG/5 ML ORAL SOLUTION PO SCH ×2 (13:01→17:15)
[2021-05-23 13:51] LABS: CALCIUM 8.5 mg/dL (8.5-10.1)
[2021-05-23 13:53] LABS: ALBUMIN 2.5 g/dl (3.4-5.0); BLOOD UREA NITROGEN 35.2 mg/dL (7-18)
[2021-05-23 13:55] LABS: CREATININE 4.7 mg/dL (0.55-1.3)
[2021-05-23 13:57] LABS: BILIRUBIN,TOTAL 0.5 mg/dL (0.2-1)
[2021-05-23 13:59] LABS: TOT PROT 5.5 g/dl (6.4-8.2)
[2021-05-23 17:08] LABS: GLIADIN ANTIBODY IGA 6 units (0-19); GLIADIN ANTIBODY IGG 2 units (0-19); TRANSGLUTAMINASE IGG < 2 U/mL (0-5)
[2021-05-23] MEDS ORDERED: INSULIN (NOVOLOG) ASPART 100 UNITS/ML 10ML VIAL ONE ×2 (19:41→21:28)
[2021-05-23] MEDS: GABAPENTIN 300 MG CAPSULE PO SCH (21:32)
[2021-05-23] MEDS ORDERED: MESALAMINE 4 GM/60 ML ENEMA RC SCH (22:00)
[2021-05-24] MEDS: VANCOMYCIN 250 MG/5 ML ORAL SOLUTION PO SCH ×4 (00:59→17:28)
[2021-05-24] MEDS: HEPARIN NA (PORCINE) 5,000 UNITS/ML 1ML VIAL SQ SCH ×2 (06:41→14:41)
[2021-05-24] MEDS: INSULIN SLIDING SCALE (NOVOLOG) 1 VIAL SQ SCH ×3 (06:41→17:25)
[2021-05-24] MEDS: SEVELAMER CARBONATE 800 MG TAB (FP) PO SCH ×3 (09:36→17:28)
[2021-05-24] MEDS: LORATADINE 10 MG TABLET PO SCH (09:36)
[2021-05-24] MEDS: TIMOLOL 0.25% OPHTHALMIC SOL 5 ML BOTTLE OU SCH (09:37)
[2021-05-24] MEDS: BRIMONIDINE TARTRATE 0.2% OPHTHALMIC 5 ML BOTTLE OS SCH (09:37)
[2021-05-24] MEDS: LATANOPROST 0.005% OPHTH SOLN 2.5ML BOTTLE OU SCH (09:38)
[2021-05-24 10:09] LABS: BASO % 0.5 % (0-2.0); EOS % 0.8 % (0-4.5); HEMATOCRIT 34.2 % (32.4-45.2); HEMOGLOBIN 11.1 GM/dL (10.7-15.3); LYMPH % 14.5 % (8-40); MCH 29.7 pg (25.7-33.7); MCHC 32.4 g/dl (32.0-36.0); MEAN CELL VOLUME 91.7 fl (80-96); MEAN PLT VOLUME 8.6 fl (7.5-11.1); MONO % 7.5 % (3.8-10.2); NEUT % 76.7 % (42.8-82.8); PLATELET COUNT 211 10^3/uL (134-434); RBC 3.73 M/mm3 (3.60-5.2); RDW 14.4 % (11.6-15.6); WHITE BLOOD COUNT 5.5 K/mm3 (4.0-10.0)
[2021-05-24 10:23] LABS: BLOOD UREA NITROGEN 33.7 mg/dL (7-18)
[2021-05-24 10:25] LABS: CREATININE 4.9 mg/dL (0.55-1.3)
[2021-05-24 10:28] LABS: BILIRUBIN,TOTAL 0.4 mg/dL (0.2-1); TOT PROT 6.6 g/dl (6.4-8.2)
[2021-05-24 10:32] LABS: ALBUMIN 2.6 g/dl (3.4-5.0)
[2021-05-24] MEDS ORDERED: SODIUM CHLORIDE 250 ML IV PRN (10:34)
[2021-05-24] MEDS ORDERED: EPOETIN ALFA-EPBX 4,000 UNIT/ML VIAL SQ ONE (11:15)
[2021-05-24] MEDS ORDERED: PT OWN MED DRAWER 7, Y5N ONE (17:16)
[2021-05-24 17:47] VITALS: BP 124/67; PULSE 82; TEMP 98.1
== END 2021-05-24 19:23 | disposition home health service (06) | DRG 248 ==
LOC: JER 12:20 → JERBED 14:28 → J8W 23:53
PROVIDERS: ADMIT Internal Medicine; ATTEND Nurse Practitioner Acute Care
PROC: 0DB68ZX Excision of Stomach, Via Natural or Artificial Opening Endoscopic, Diagnostic (ICD-10-PCS; 2021-05-23)
PROC: 0DBB8ZX Excision of Ileum, Via Natural or Artificial Opening Endoscopic, Diagnostic (ICD-10-PCS; 2021-05-23)
PROC: 0DBN8ZX Excision of Sigmoid Colon, Via Natural or Artificial Opening Endoscopic, Diagnostic (ICD-10-PCS; 2021-05-23)
PROC: 0DBP8ZX Excision of Rectum, Via Natural or Artificial Opening Endoscopic, Diagnostic (ICD-10-PCS; 2021-05-23)
PROC: 0DBM8ZX Excision of Descending Colon, Via Natural or Artificial Opening Endoscopic, Diagnostic (ICD-10-PCS; 2021-05-23)
PROC: 0DBL8ZX Excision of Transverse Colon, Via Natural or Artificial Opening Endoscopic, Diagnostic (ICD-10-PCS; 2021-05-23)
PROC: 0DBF8ZX Excision of Right Large Intestine, Via Natural or Artificial Opening Endoscopic, Diagnostic (ICD-10-PCS; 2021-05-23)
PROC: 0DB98ZX Excision of Duodenum, Via Natural or Artificial Opening Endoscopic, Diagnostic (ICD-10-PCS; principal; 2021-05-23 08:00)
DX: A04.72 Enterocolitis due to Clostridium difficile, not specified as recurrent (principal); E11.22 Type 2 diabetes mellitus with diabetic chronic kidney disease; I12.0 Hypertensive chronic kidney disease with stage 5 chronic kidney disease or end stage renal disease; N18.6 End stage renal disease; Z99.2 Dependence on renal dialysis; Q61.3 Polycystic kidney, unspecified; Z86.16 Personal history of COVID-19; Z79.4 Long term (current) use of insulin; D64.9 Anemia, unspecified; C53.9 Malignant neoplasm of cervix uteri, unspecified; E11.65 Type 2 diabetes mellitus with hyperglycemia; I51.3 Intracardiac thrombosis, not elsewhere classified; D63.8 Anemia in other chronic diseases classified elsewhere; K63.3 Ulcer of intestine; K29.70 Gastritis, unspecified, without bleeding; K64.8 Other hemorrhoids; K62.7 Radiation proctitis; Y84.2 Radiological procedure and radiotherapy as the cause of abnormal reaction of the patient, or of later complication, without mention of misadventure at the time of the procedure
CPT/HCPCS: 36415; 71046-TC-FY; 80048; 80053; 80307; 82784; 82962; 82977; 83036; 83516; 83540; 83550; 83690; 83735; 84100; 84443; 85025; 85610; 86140; 86803; 86850; 86900; 86901; 87045; 87046; 87177; 87205; 87209; 87324; 87340; 87449; 88305-TC; 93005; 93010; 97116-GP; 97161-GP; 99285-25; C9803; J1644; Q5106; U0003; U0005

== ENCOUNTER 2021-07-15 12:50 | Inpatient (IN) | payer OTHER ==
[2021-07-15] MEDS ORDERED: LIDOCAINE HCL 2% (20ML MULTI-DOSE VIAL) ONE (14:07)
[2021-07-15 14:34] LABS: BASO % 1.3 % (0-2.0); EOS % 2.5 % (0-4.5); HEMATOCRIT 30.8 % (32.4-45.2); LYMPH % 10.9 % (8-40); MCH 29.3 pg (25.7-33.7); MCHC 32.4 g/dl (32.0-36.0); MEAN CELL VOLUME 90.7 fl (80-96); MEAN PLT VOLUME 7.9 fl (7.5-11.1); MONO % 9.6 % (3.8-10.2); NEUT % 75.7 % (42.8-82.8); PLATELET COUNT 213 10^3/uL (134-434); RDW 16.2 % (11.6-15.6); WHITE BLOOD COUNT 5.7 K/mm3 (4.0-10.0)
[2021-07-15 14:42] LABS: INR 0.99 (0.83-1.09); PROTHROMBIN TIME (PATIENT) 11.4 SEC (9.7-13.0)
[2021-07-15 15:01] LABS: CALCIUM 8.6 mg/dL (8.5-10.1)
[2021-07-15 15:02] LABS: ALBUMIN 2.8 g/dl (3.4-5.0); MAGNESIUM 2.3 mg/dL (1.8-2.4)
[2021-07-15 15:07] LABS: BILIRUBIN,TOTAL 0.3 mg/dL (0.2-1); TOT PROT 6.8 g/dl (6.4-8.2)
[2021-07-15] MEDS ORDERED: SODIUM CHLORIDE 250 ML IV PRN (16:25)
[2021-07-15] MEDS ORDERED: EPOETIN ALFA-EPBX 4,000 UNIT/ML VIAL SQ ONE (16:25)
[2021-07-15 21:59] LABS: HEMOGLOBIN 10.5 GM/dL (10.7-15.3); MCH 29.9 pg (25.7-33.7); MEAN CELL VOLUME 90.6 fl (80-96); MEAN PLT VOLUME 7.5 fl (7.5-11.1); PLATELET COUNT 177 10^3/uL (134-434); RBC 3.53 M/mm3 (3.60-5.2)
[2021-07-15] MEDS: LATANOPROST 0.005% OPHTH SOLN 2.5ML BOTTLE OU SCH (22:48)
[2021-07-15] MEDS: INSULIN SLIDING SCALE (NOVOLOG) 1 VIAL SQ SCH (22:48)
[2021-07-15] MEDS: BRIMONIDINE TARTRATE 0.2% OPHTHALMIC 5 ML BOTTLE OS SCH (22:48)
[2021-07-15] MEDS: SODIUM BICARBONATE 650 MG TABLET PO SCH (22:49)
[2021-07-15 23:50] VITALS: BMI 32.5
[2021-07-15 23:52] LABS: EPI CELLS 11 /uL (0-25.1); HYALINE CASTS 2 /uL (0-3.1); URINE APPEARANCE CLEAR; URINE BACTERIA 158 /uL (0-1359); URINE BILIRUBIN NEGATIVE (NEGATIVE); URINE COLOR YELLOW; URINE GLUCOSE (UA) 2+ (NEGATIVE); URINE KETONE NEGATIVE (NEGATIVE); URINE LEUK ESTERASE NEGATIVE (NEGATIVE); URINE NITRITE NEGATIVE (NEGATIVE); URINE PROTEIN 4+ (NEGATIVE); URINE RBC 13 /uL (0-23.9); URINE UROBILINOGEN 0.2 mg/dL (0.2-1.0)
[2021-07-16] MEDS: SODIUM BICARBONATE 650 MG TABLET PO SCH ×2 (06:13→14:01)
[2021-07-16] MEDS: INSULIN SLIDING SCALE (NOVOLOG) 1 VIAL SQ SCH ×4 (06:13→21:08)
[2021-07-16 10:03] LABS: HEMATOCRIT 33.8 % (32.4-45.2); HEMOGLOBIN 10.7 GM/dL (10.7-15.3); MCHC 31.8 g/dl (32.0-36.0); MEAN CELL VOLUME 91.3 fl (80-96); MEAN PLT VOLUME 7.9 fl (7.5-11.1); PLATELET COUNT 214 10^3/uL (134-434); WHITE BLOOD COUNT 4.3 K/mm3 (4.0-10.0)
[2021-07-16] MEDS: BRIMONIDINE TARTRATE 0.2% OPHTHALMIC 5 ML BOTTLE OS SCH ×2 (11:04→21:09)
[2021-07-16] MEDS: PARoxetine HCL 10 MG TABLET PO SCH (14:05)
[2021-07-16] MEDS ORDERED: SODIUM CHLORIDE 250 ML IV PRN (16:42)
[2021-07-16] MEDS: LATANOPROST 0.005% OPHTH SOLN 2.5ML BOTTLE OU SCH (21:09)
[2021-07-16] MEDS: MESALAMINE 4 GM/60 ML ENEMA RC SCH (21:59)
[2021-07-17] MEDS: INSULIN SLIDING SCALE (NOVOLOG) 1 VIAL SQ SCH ×4 (06:23→21:52)
[2021-07-17 08:55] LABS: HEMATOCRIT 34.4 % (32.4-45.2); HEMOGLOBIN 11.3 GM/dL (10.7-15.3); MCH 29.5 pg (25.7-33.7); MCHC 32.8 g/dl (32.0-36.0); MEAN CELL VOLUME 90.1 fl (80-96); MEAN PLT VOLUME 7.4 fl (7.5-11.1); PLATELET COUNT 234 10^3/uL (134-434); RBC 3.82 M/mm3 (3.60-5.2); RETICULOCYTES 3.35 % (0.5-1.5); WHITE BLOOD COUNT 5.2 K/mm3 (4.0-10.0)
[2021-07-17 09:04] LABS: BLOOD UREA NITROGEN 31.6 mg/dL (7-18); MAGNESIUM 2.1 mg/dL (1.8-2.4)
[2021-07-17 09:07] LABS: CREATININE 5.3 mg/dL (0.55-1.3); PHOSPHOROUS 6.2 mg/dL (2.5-4.9)
[2021-07-17] MEDS: PARoxetine HCL 10 MG TABLET PO SCH (09:48)
[2021-07-17] MEDS: BRIMONIDINE TARTRATE 0.2% OPHTHALMIC 5 ML BOTTLE OS SCH ×2 (09:48→21:52)
[2021-07-17 10:13] LABS: ANISOCYTOSIS 1+; MACROCYTOSIS 0
[2021-07-17] MEDS ORDERED: amLODIPine BESYLATE 5 MG TABLET (FP) PO ONE (12:36)
[2021-07-17] MEDS ORDERED: BISACODYL 5 MG TABLET.DR (FP) PO ONE (16:00)
[2021-07-17] MEDS ORDERED: PEG 3350/NA SULF BICARB CL/KCL 4000 ML SOLN.RECON PO ONE (17:00)
[2021-07-17] MEDS: MESALAMINE 4 GM/60 ML ENEMA RC SCH (21:53)
[2021-07-17] MEDS: LATANOPROST 0.005% OPHTH SOLN 2.5ML BOTTLE OU SCH (21:53)
[2021-07-18] MEDS: INSULIN SLIDING SCALE (NOVOLOG) 1 VIAL SQ SCH ×4 (06:01→20:59)
[2021-07-18 08:45] LABS: BASO % 0.9 % (0-2.0); EOS % 0.9 % (0-4.5); HEMATOCRIT 39.7 % (32.4-45.2); HEMOGLOBIN 13.1 GM/dL (10.7-15.3); LYMPH % 13.2 % (8-40); MCH 29.9 pg (25.7-33.7); MCHC 33.1 g/dl (32.0-36.0); MEAN CELL VOLUME 90.3 fl (80-96); MEAN PLT VOLUME 7.3 fl (7.5-11.1); MONO % 6.5 % (3.8-10.2); NEUT % 78.5 % (42.8-82.8); PLATELET COUNT 250 10^3/uL (134-434); RBC 4.39 M/mm3 (3.60-5.2); WHITE BLOOD COUNT 7.2 K/mm3 (4.0-10.0)
[2021-07-18 08:57] LABS: BLOOD UREA NITROGEN 19.8 mg/dL (7-18); MAGNESIUM 2.2 mg/dL (1.8-2.4)
[2021-07-18 09:00] LABS: CREATININE 4.2 mg/dL (0.55-1.3)
[2021-07-18] MEDS: PARoxetine HCL 10 MG TABLET PO SCH (12:23)
[2021-07-18] MEDS: BRIMONIDINE TARTRATE 0.2% OPHTHALMIC 5 ML BOTTLE OS SCH ×2 (12:23→20:59)
[2021-07-18] MEDS ORDERED: SODIUM CHLORIDE 250 ML IV PRN (13:09)
[2021-07-18] MEDS: LATANOPROST 0.005% OPHTH SOLN 2.5ML BOTTLE OU SCH (20:59)
[2021-07-18] MEDS: SUCRALFATE 1 GM/10 ML UNIT DOSE CUPS NR SCH (20:59)
[2021-07-18] MEDS: MESALAMINE 4 GM/60 ML ENEMA RC SCH (21:00)
[2021-07-19] MEDS: INSULIN SLIDING SCALE (NOVOLOG) 1 VIAL SQ SCH ×3 (06:57→17:13)
[2021-07-19 09:56] LABS: BASO % 1.1 % (0-2.0); EOS % 1.3 % (0-4.5); HEMATOCRIT 36.6 % (32.4-45.2); HEMOGLOBIN 11.6 GM/dL (10.7-15.3); LYMPH % 13.9 % (8-40); MCH 28.7 pg (25.7-33.7); MCHC 31.7 g/dl (32.0-36.0); MEAN CELL VOLUME 90.7 fl (80-96); MEAN PLT VOLUME 7.8 fl (7.5-11.1); MONO % 6.2 % (3.8-10.2); NEUT % 77.5 % (42.8-82.8); PLATELET COUNT 235 10^3/uL (134-434); RBC 4.03 M/mm3 (3.60-5.2); RDW 16.3 % (11.6-15.6)
[2021-07-19 10:18] LABS: BLOOD UREA NITROGEN 30.8 mg/dL (7-18); CALCIUM 9.2 mg/dL (8.5-10.1); MAGNESIUM 2.2 mg/dL (1.8-2.4)
[2021-07-19 10:20] LABS: CREATININE 5.7 mg/dL (0.55-1.3); PHOSPHOROUS 6.8 mg/dL (2.5-4.9)
[2021-07-19] MEDS: BRIMONIDINE TARTRATE 0.2% OPHTHALMIC 5 ML BOTTLE OS SCH (13:22)
[2021-07-19] MEDS: PARoxetine HCL 10 MG TABLET PO SCH (13:22)
[2021-07-19] MEDS: SUCRALFATE 1 GM/10 ML UNIT DOSE CUPS NR SCH (13:22)
[2021-07-19 14:34] VITALS: BP 148/76; PULSE 87; TEMP 98
== END 2021-07-19 18:02 | disposition home or self-care (01) | DRG 254 ==
LOC: JER 12:50 → JERBED 17:03 → OBSVTOIN 18:03 → J6S 23:19
PROVIDERS: ADMIT Internal Medicine; ATTEND Internal Medicine
PROC: 5A1D70Z Performance of Urinary Filtration, Intermittent, Less than 6 Hours Per Day (ICD-10-PCS; 2021-07-15)
PROC: 5A1D70Z Performance of Urinary Filtration, Intermittent, Less than 6 Hours Per Day (ICD-10-PCS; 2021-07-17)
PROC: 0DBN8ZX Excision of Sigmoid Colon, Via Natural or Artificial Opening Endoscopic, Diagnostic (ICD-10-PCS; principal; 2021-07-18 10:47)
PROC: 5A1D70Z Performance of Urinary Filtration, Intermittent, Less than 6 Hours Per Day (ICD-10-PCS; 2021-07-19)
DX: K62.7 Radiation proctitis (principal); C53.9 Malignant neoplasm of cervix uteri, unspecified; I12.0 Hypertensive chronic kidney disease with stage 5 chronic kidney disease or end stage renal disease; E11.22 Type 2 diabetes mellitus with diabetic chronic kidney disease; N18.6 End stage renal disease; Z99.2 Dependence on renal dialysis; F31.9 Bipolar disorder, unspecified; F41.9 Anxiety disorder, unspecified; Q61.3 Polycystic kidney, unspecified; E11.65 Type 2 diabetes mellitus with hyperglycemia; D64.9 Anemia, unspecified; K64.8 Other hemorrhoids; K92.2 Gastrointestinal hemorrhage, unspecified
CPT/HCPCS: 36415; 80048; 80053; 81003; 82272; 82728; 82962; 83540; 83550; 83605; 83735; 84100; 85025; 85027; 85045; 85610; 85730; 86140; 86803; 86850; 86900; 86901; 87045; 87046; 87086; 87177; 87205; 87209; 87324; 87340; 87449; 88305-TC; 93005; 93010; 99285-25; C9803; G0378; Q5106; U0003; U0005

== ENCOUNTER 2021-08-21 11:32 | Observation (INO) | payer OTHER ==
[2021-08-21] MEDS ORDERED: SODIUM CHLORIDE 250 ML IV PRN (13:36)
[2021-08-21 14:14] LABS: BASO % 1.1 % (0-2.0); EOS % 2.7 % (0-4.5); HEMATOCRIT 30.3 % (32.4-45.2); HEMOGLOBIN 9.5 GM/dL (10.7-15.3); LYMPH % 10.7 % (8-40); MCH 29.6 pg (25.7-33.7); MCHC 31.5 g/dl (32.0-36.0); MEAN CELL VOLUME 94.1 fl (80-96); MEAN PLT VOLUME 7.9 fl (7.5-11.1); MONO % 10.5 % (3.8-10.2); PLATELET COUNT 189 10^3/uL (134-434); RBC 3.22 M/mm3 (3.60-5.2); WHITE BLOOD COUNT 4.9 K/mm3 (4.0-10.0)
[2021-08-21 14:19] LABS: INR 1.06 (0.83-1.09); PROTHROMBIN TIME (PATIENT) 12.2 SEC (9.7-13.0)
[2021-08-21 14:22] LABS: ACTIVATED PTT 37.3 SECONDS (25.2-36.5)
[2021-08-21 14:32] LABS: CHLORIDE 112 mmol/L (98-107); SODIUM 143 mmol/L (136-145)
[2021-08-21 14:35] LABS: CALCIUM 8.3 mg/dL (8.5-10.1)
[2021-08-21 14:36] LABS: ALBUMIN 2.6 g/dl (3.4-5.0); ANION GAP 15 MMOL/L (8-16); CO2 16 mmol/L (21-32); GLUCOSE,RANDOM 226 mg/dL (74-106); MAGNESIUM 2.7 mg/dL (1.8-2.4)
[2021-08-21 14:39] LABS: SGOT/AST 15 U/L (15-37); SGPT/ALT 8 U/L (13-61)
[2021-08-21 14:40] LABS: TOT PROT 6.4 g/dl (6.4-8.2)
[2021-08-21 14:41] LABS: BILIRUBIN,TOTAL 0.4 mg/dL (0.2-1)
[2021-08-21 14:42] LABS: ALK PHOS 89 U/L (45-117)
[2021-08-21 14:44] LABS: CREATININE 8.7 mg/dL (0.55-1.3)
[2021-08-21] MEDS ORDERED: LOSARTAN POTASSIUM 50 MG TABLET PO ONE (16:26)
[2021-08-21] MEDS ORDERED: LOSARTAN POTASSIUM 50 MG TABLET ONE (18:22)
[2021-08-21] MEDS: INSULIN SLIDING SCALE (NOVOLOG) 1 VIAL SQ SCH ×2 (18:37→21:54)
[2021-08-21] MEDS ORDERED: GABAPENTIN 100 MG CAPSULE ONE (21:19)
[2021-08-21] MEDS ORDERED: HEPARIN NA (PORCINE) 5,000 UNITS/ML 1ML VIAL ONE (21:19)
[2021-08-21] MEDS: GABAPENTIN 100 MG CAPSULE PO SCH (21:51)
[2021-08-21] MEDS: HEPARIN NA (PORCINE) 5,000 UNITS/ML 1ML VIAL SQ SCH (21:51)
[2021-08-21] MEDS ORDERED: BENZOCAINE/MENTH/CETYLPYRD CL 1 EACH LOZENGE MM ONE ×2 (22:33→22:44)
[2021-08-21] MEDS ORDERED: SODIUM CHLORIDE NASAL SPRAY 44 ML BOTTLE NS ONE (22:33)
[2021-08-22 01:06] VITALS: BMI 31.3
[2021-08-22] MEDS ORDERED: PARoxetine HCL 10 MG TABLET PO ONE (01:23)
[2021-08-22] MEDS: HEPARIN NA (PORCINE) 5,000 UNITS/ML 1ML VIAL SQ SCH ×2 (06:39→13:32)
[2021-08-22] MEDS: INSULIN SLIDING SCALE (NOVOLOG) 1 VIAL SQ SCH ×2 (06:47→11:00)
[2021-08-22] MEDS ORDERED: EPOETIN ALFA-EPBX 3,000 UNIT/ML VIAL SQ ONE (08:22)
[2021-08-22] MEDS ORDERED: SODIUM CHLORIDE 250 ML IV PRN (09:24)
[2021-08-22] MEDS ORDERED: EPOETIN ALFA-EPBX 10,000 UNIT/ML VIAL SQ ONE (09:45)
[2021-08-22] MEDS ORDERED: FERROUS SO4 325 MG TABLET (FP) PO SCH (10:00)
[2021-08-22] MEDS ORDERED: CLOPIDOGREL BISULFATE 75 MG TABLET (FP) PO SCH (10:00)
[2021-08-22] MEDS ORDERED: PARoxetine HCL 10 MG TABLET PO SCH ×2 (10:00)
[2021-08-22] MEDS ORDERED: ASPIRIN COATED 81 MG TABLET.EC PO SCH (10:00)
[2021-08-22] MEDS ORDERED: LOSARTAN POTASSIUM 50 MG TABLET PO SCH (10:00)
[2021-08-22] MEDS ORDERED: guaiFENesin 600 MG TABLET.ER (FP) PO SCH (10:00)
[2021-08-22 10:20] LABS: BASO % 1.2 % (0-2.0); EOS % 2.7 % (0-4.5); HEMOGLOBIN 9.9 GM/dL (10.7-15.3); MCHC 31.8 g/dl (32.0-36.0); MEAN CELL VOLUME 91.2 fl (80-96); MEAN PLT VOLUME 7.9 fl (7.5-11.1); MONO % 11.8 % (3.8-10.2); NEUT % 69.3 % (42.8-82.8); PLATELET COUNT 179 10^3/uL (134-434); RDW 17.1 % (11.6-15.6); WHITE BLOOD COUNT 4.7 K/mm3 (4.0-10.0)
[2021-08-22 10:51] LABS: CALCIUM 7.9 mg/dL (8.5-10.1)
[2021-08-22 10:52] LABS: ALBUMIN 2.7 g/dl (3.4-5.0); MAGNESIUM 2.3 mg/dL (1.8-2.4)
[2021-08-22 10:54] LABS: CREATININE 6.2 mg/dL (0.55-1.3); PHOSPHOROUS 7.5 mg/dL (2.5-4.9)
[2021-08-22 10:55] LABS: TOT PROT 6.1 g/dl (6.4-8.2)
[2021-08-22 10:56] LABS: BILIRUBIN,TOTAL 0.4 mg/dL (0.2-1)
[2021-08-22 11:08] LABS: BLOOD UREA NITROGEN 68.1 mg/dL (7-18)
[2021-08-22] MEDS: GABAPENTIN 100 MG CAPSULE PO SCH (12:08)
[2021-08-22 14:35] VITALS: BP 153/95; PULSE 98; TEMP 97.6
[2021-08-22 23:07] LABS: SARS-CoV-2 NAA Not Detected (Not Detected)
== END 2021-08-22 16:10 | disposition home or self-care (01) ==
LOC: JER 11:32 → INTOOBSV 14:20 → JERBED 14:20 → UNDOADMOB 14:20 → J6S 23:43 → JERBED 23:43 → J6S 08-22 08:11 → JERBED 08-22 08:11
PROVIDERS: ADMIT Internal Medicine; ATTEND Internal Medicine
PROC: 3E013GC Introduction of Other Therapeutic Substance into Subcutaneous Tissue, Percutaneous Approach (ICD-10-PCS; principal; 2021-08-22)
PROC: 3E0F7SF Introduction of Other Gas into Respiratory Tract, Via Natural or Artificial Opening (ICD-10-PCS; 2021-08-22)
DX: E11.22 Type 2 diabetes mellitus with diabetic chronic kidney disease (principal); I12.0 Hypertensive chronic kidney disease with stage 5 chronic kidney disease or end stage renal disease; N18.6 End stage renal disease; Z99.2 Dependence on renal dialysis; Z91.15 Patient's noncompliance with renal dialysis; Z87.891 Personal history of nicotine dependence; Z79.4 Long term (current) use of insulin; E78.5 Hyperlipidemia, unspecified; D64.9 Anemia, unspecified; C53.9 Malignant neoplasm of cervix uteri, unspecified; R05.9 Cough, unspecified
CPT/HCPCS: 36415; 71046-TC-FY; 80053; 82272; 82728; 82962; 83540; 83550; 83735; 84100; 84484; 85025; 85610; 85730; 86803; 87340; 87804; 87807; 93005; 93010; 94640; 96372; 99285-25; C9803-CS; G0378; J1644; Q5106; U0003; U0005

== ENCOUNTER 2021-10-16 11:15 | Observation (INO) | payer OTHER ==
[2021-10-16 11:27] VITALS: BMI 31.3
[2021-10-16 12:45] LABS: BASO % 1.3 % (0-2.0); EOS % 1.2 % (0-4.5); HEMATOCRIT 29.3 % (32.4-45.2); HEMOGLOBIN 9.3 GM/dL (10.7-15.3); LYMPH % 5.2 % (8-40); MCH 29.4 pg (25.7-33.7); MCHC 31.8 g/dl (32.0-36.0); MEAN CELL VOLUME 92.5 fl (80-96); MEAN PLT VOLUME 8.1 fl (7.5-11.1); MONO % 4.7 % (3.8-10.2); NEUT % 87.6 % (42.8-82.8); PLATELET COUNT 169 10^3/uL (134-434); RBC 3.16 M/mm3 (3.60-5.2); RDW 14.9 % (11.6-15.6)
[2021-10-16 12:51] LABS: INR 1.02 (0.83-1.09); PROTHROMBIN TIME (PATIENT) 11.7 SEC (9.7-13.0)
[2021-10-16 12:54] LABS: ACTIVATED PTT 29.7 SECONDS (25.2-36.5)
[2021-10-16 13:04] LABS: CHLORIDE 110 mmol/L (98-107); SODIUM 141 mmol/L (136-145)
[2021-10-16 13:07] LABS: CALCIUM 8.2 mg/dL (8.5-10.1)
[2021-10-16 13:08] LABS: ANION GAP 13 MMOL/L (8-16); BLOOD UREA NITROGEN 83.8 mg/dL (7-18); CO2 17 mmol/L (21-32); GLUCOSE,RANDOM 163 mg/dL (74-106)
[2021-10-16 13:11] LABS: SGOT/AST 11 U/L (15-37); SGPT/ALT 13 U/L (13-61)
[2021-10-16 13:12] LABS: BILIRUBIN,TOTAL 0.4 mg/dL (0.2-1); TOT PROT 6.7 g/dl (6.4-8.2)
[2021-10-16 13:14] LABS: ALK PHOS 73 U/L (45-117)
[2021-10-16 13:32] LABS: CREATININE 8.1 mg/dL (0.55-1.3)
[2021-10-16] MEDS ORDERED: SODIUM CHLORIDE 250 ML IV PRN (14:30)
[2021-10-16] MEDS ORDERED: EPOETIN ALFA-EPBX 4,000 UNIT/ML VIAL IVPUSH ONE (15:00)
[2021-10-16 16:43] VITALS: TEMP 98.5
[2021-10-16] MEDS ORDERED: DEXTROSE 50%-WATER - 25 GM/50 ML VIAL IVPUSH PRN (18:17)
[2021-10-16 21:24] VITALS: BP 141/84; PULSE 108
[2021-10-16] MEDS ORDERED: GABAPENTIN 100 MG CAPSULE PO SCH (22:00)
[2021-10-16] MEDS ORDERED: DORZOLAMIDE 2% HCL OPHTHALMIC SOLUTION 10 ML BOTTLE OU SCH (22:00)
[2021-10-16] MEDS ORDERED: BRIMONIDINE TARTRATE 0.2% OPHTHALMIC 5 ML BOTTLE OU SCH (22:00)
[2021-10-16] MEDS ORDERED: SODIUM BICARBONATE 650 MG TABLET PO SCH (22:00)
[2021-10-16] MEDS ORDERED: HEPARIN NA (PORCINE) 5,000 UNITS/ML 1ML VIAL SQ SCH (22:00)
[2021-10-16] MEDS ORDERED: INSULIN SLIDING SCALE (NOVOLOG) 1 VIAL SQ SCH (22:00)
[2021-10-16] MEDS ORDERED: INSULIN (LEVEMIR) 100 UNITS/ML UNITS SQ SCH (22:00)
[2021-10-17] MEDS ORDERED: INSULIN (NOVOLOG) ASPART 100 UNITS/ML 10ML VIAL SQ SCH (07:00)
[2021-10-17] MEDS ORDERED: FERROUS SO4 325 MG TABLET (FP) PO SCH (10:00)
[2021-10-17] MEDS ORDERED: LATANOPROST 0.005% OPHTH SOLN 2.5ML BOTTLE OU SCH (10:00)
[2021-10-17] MEDS ORDERED: CLOPIDOGREL BISULFATE 75 MG TABLET (FP) PO SCH (10:00)
[2021-10-17] MEDS ORDERED: PARoxetine HCL 10 MG TABLET PO SCH (10:00)
[2021-10-17] MEDS ORDERED: LOSARTAN POTASSIUM 50 MG TABLET PO SCH (10:00)
[2021-10-17] MEDS ORDERED: ASPIRIN COATED 81 MG TABLET.EC PO SCH (10:00)
[2021-10-17] MEDS ORDERED: CYANOCOBALAMIN 1,000 MCG TABLET (FP) PO SCH (10:00)
== END 2021-10-16 22:30 | disposition left against medical advice (07) ==
LOC: JER 11:15 → JERBED 15:59
PROVIDERS: ADMIT Internal Medicine; ATTEND Internal Medicine
PROC: 3E033GC Introduction of Other Therapeutic Substance into Peripheral Vein, Percutaneous Approach (ICD-10-PCS; principal; 2021-10-16)
DX: I12.0 Hypertensive chronic kidney disease with stage 5 chronic kidney disease or end stage renal disease (principal); E11.22 Type 2 diabetes mellitus with diabetic chronic kidney disease; Z99.2 Dependence on renal dialysis; Z91.15 Patient's noncompliance with renal dialysis; Z79.4 Long term (current) use of insulin; F31.9 Bipolar disorder, unspecified; E66.8 Other obesity; Z68.31 Body mass index [BMI] 31.0-31.9, adult; Z87.891 Personal history of nicotine dependence; Q61.3 Polycystic kidney, unspecified; Z85.41 Personal history of malignant neoplasm of cervix uteri; I82.90 Acute embolism and thrombosis of unspecified vein; Z79.01 Long term (current) use of anticoagulants; M06.9 Rheumatoid arthritis, unspecified; K29.70 Gastritis, unspecified, without bleeding; Z91.011 Allergy to milk products
CPT/HCPCS: 36415; 71046-TC-FY; 74176-TC; 80053; 83605; 84702; 85025; 85610; 85730; 86803; 86850; 86900; 86901; 87070; 87340; 93005; 93010; 96374; 99285-25; C9803-CS; G0378; Q5106; U0003; U0005

== ENCOUNTER 2021-12-02 12:09 | Emergency (ER) | payer OTHER ==
[2021-12-02 12:34] VITALS: BP 129/68; PULSE 85; TEMP 97.8; BMI 42.5
== END 2021-12-02 16:20 | disposition home or self-care (01) ==
LOC: JER 12:09
DX: S09.90XA Unspecified injury of head, initial encounter (principal); W01.0XXA Fall on same level from slipping, tripping and stumbling without subsequent striking against object, initial encounter
CPT/HCPCS: 70450-TC; 99284-25

== ENCOUNTER 2021-12-16 16:43 | Emergency (ER) | payer OTHER ==
[2021-12-16 17:12] VITALS: BMI 35.2
[2021-12-16 21:54] LABS: EOS % 1.4 % (0-4.5); HEMATOCRIT 33.4 % (32.4-45.2); HEMOGLOBIN 10.5 GM/dL (10.7-15.3); LYMPH % 17.6 % (8-40); MCH 30.2 pg (25.7-33.7); MCHC 31.5 g/dl (32.0-36.0); MEAN CELL VOLUME 95.9 fl (80-96); MEAN PLT VOLUME 8.2 fl (7.5-11.1); MONO % 11.2 % (3.8-10.2); NEUT % 68.8 % (42.8-82.8); PLATELET COUNT 126 10^3/uL (134-434); RBC 3.48 M/mm3 (3.60-5.2); RDW 15.8 % (11.6-15.6); WHITE BLOOD COUNT 3.6 K/mm3 (4.0-10.0)
[2021-12-16 23:24] LABS: ALBUMIN 3.1 g/dl (3.4-5.0); BILIRUBIN,TOTAL 0.3 mg/dL (0.2-1); BLOOD UREA NITROGEN 28.7 mg/dL (7-18); CALCIUM 8.4 mg/dL (8.5-10.1); CREATININE 4.6 mg/dL (0.55-1.3); MAGNESIUM 2.3 mg/dL (1.8-2.4); TOT PROT 7.2 g/dl (6.4-8.2)
[2021-12-17 02:18] VITALS: BP 145/85; PULSE 82; RESP 20; TEMP 98.4
== END 2021-12-17 02:21 | disposition home or self-care (01) ==
LOC: JER 16:43
DX: R07.9 Chest pain, unspecified (principal)
CPT/HCPCS: 36415; 71046-TC-FY; 80053; 83735; 84484; 85025; 93005; 93010; 99284-25

== ENCOUNTER 2021-12-25 04:09 | Day surgery (SDC) | payer OTHER ==
[2021-12-13 17:07] VITALS: BMI 35.2
[~2021-12-25 04:09] MED LIST changes: +ACETAMINOPHEN 325 MG TABLET (FP) PO PRN; -SODIUM CHLORIDE 250 ML IV PRN
[2021-12-25] MEDS: TROPICAMIDE 1% OPHTH SOLN 15 ML BOTTLE OP SCH ×3 (09:00→09:10)
[2021-12-25] MEDS: KETOROLAC TROMETHAMINE 0.5% EYE DROP 1 DROP DROPS OP SCH ×3 (09:00→09:10)
[2021-12-25] MEDS: CYCLOPENTOLATE HCL 1% OPHTH SOLN 2 ML BOTTLE OP SCH ×3 (09:00→09:10)
[2021-12-25] MEDS: OFLOXACIN 0.3% OPHTHALMIC SOLUTION 5 ML BOTTLE OP SCH ×3 (09:00→09:10)
[2021-12-25] MEDS: PHENYLEPHRINE 2.5% OPHTH SOLN 15 ML BOTTLE OP SCH ×3 (09:00→09:10)
[2021-12-25] MEDS ORDERED: CYCLOPENTOLATE HCL 1% OPHTH SOLN 2 ML BOTTLE ONE (09:06)
[2021-12-25] MEDS ORDERED: TROPICAMIDE 1% OPHTH SOLN 15 ML BOTTLE ONE (09:07)
[2021-12-25] MEDS ORDERED: PHENYLEPHRINE 2.5% OPTHALMIC DROP BOTTLE ONE (09:07)
[2021-12-25] MEDS ORDERED: OFLOXACIN 0.3% OPHTHALMIC SOLUTION 5 ML BOTTLE ONE (09:07)
[2021-12-25] MEDS ORDERED: KETOROLAC TROMETHAMINE 0.5% EYE DROP 1 DROP DROPS ONE (09:08)
[2021-12-25 09:23] VITALS: RESP 20; TEMP 97.2
[2021-12-25] MEDS ORDERED: MIDAZOLAM HCL 2 MG/2 ML SINGLE DOSE VIAL ONE (10:33)
[2021-12-25] MEDS ORDERED: TETRACAINE 0.5% OPHTH SOLN 2 ML BOTTLE TP ONE (10:34)
[2021-12-25] MEDS ORDERED: POVIDONE-IODINE 5% OPHTHALMIC PREP 30 ML SOLUTION OD ONE (10:36)
[2021-12-25] MEDS ORDERED: BSS (NA/CA/MG/K) BALANCED SALT SOLUTION OPHTH SOLN 15 ML BOTTLE OD ONE (10:41)
[2021-12-25] MEDS ORDERED: CHONDROITIN SU A/HYALUR SOD 1 KIT IO ONE (10:42)
[2021-12-25] MEDS ORDERED: LIDOCAINE HCL 1% PRESERVATIVE FREE - 30ML VIAL IO ONE (10:42)
[2021-12-25] MEDS ORDERED: EPINEPHrine/PF 1 MG/1 ML (1:1,000) AMPULE SQ ONE (10:47)
[2021-12-25 14:08] VITALS: BP 130/74; PULSE 68
== END 2021-12-25 12:06 | disposition home or self-care (01) ==
LOC: JASU-SURG 04:09
PROVIDERS: ATTEND Ophthalmology
PROC: 08RJ3JZ Replacement of Right Lens with Synthetic Substitute, Percutaneous Approach (ICD-10-PCS; principal; 2021-12-25 10:00)
DX: H26.9 Unspecified cataract (principal); I12.0 Hypertensive chronic kidney disease with stage 5 chronic kidney disease or end stage renal disease; E11.22 Type 2 diabetes mellitus with diabetic chronic kidney disease; N18.6 End stage renal disease; Z99.2 Dependence on renal dialysis; Z79.4 Long term (current) use of insulin
CPT/HCPCS: 82962

== ENCOUNTER 2022-01-09 15:46 | Inpatient (IN) | payer OTHER ==
[2022-01-09] MEDS ORDERED: SODIUM CHLORIDE IV ONE (16:05)
[2022-01-09] MEDS ORDERED: VANCOMYCIN 1,000 MG in DEXTROSE 5%-WATER - 250 ML IVPB ONE (16:07)
[2022-01-09] MEDS ORDERED: VANCOMYCIN/WATER FOR INJ (PEG) 1,000 MG/200 ML BAG IVPB ONE (17:09)
[2022-01-09 17:45] LABS: BASO % 0.8 % (0-2.0); EOS % 1.2 % (0-4.5); HEMATOCRIT 31.2 % (32.4-45.2); HEMOGLOBIN 10.3 GM/dL (10.7-15.3); LYMPH % 17.2 % (8-40); MCH 30.6 pg (25.7-33.7); MEAN CELL VOLUME 92.6 fl (80-96); MEAN PLT VOLUME 8.4 fl (7.5-11.1); MONO % 8.2 % (3.8-10.2); NEUT % 72.6 % (42.8-82.8); PLATELET COUNT 180 10^3/uL (134-434); RBC 3.37 M/mm3 (3.60-5.2); WHITE BLOOD COUNT 4.9 K/mm3 (4.0-10.0)
[2022-01-09 17:46] LABS: VENOUS BASE EXCESS -3.6 mmol/L (-2-2); VENOUS O2 SATURATION 45.7 % (70-80); VENOUS PCO2 43.1 mmHg (38-52); VENOUS PH 7.327 (7.310-7.410)
[2022-01-09 17:55] LABS: INR 0.95 (0.83-1.09); PROTHROMBIN TIME (PATIENT) 10.9 SEC (9.7-13.0)
[2022-01-09 17:58] LABS: ACTIVATED PTT 31.1 SECONDS (25.2-36.5)
[2022-01-09 18:10] LABS: CALCIUM 8.4 mg/dL (8.5-10.1)
[2022-01-09 18:11] LABS: ALBUMIN 3.4 g/dl (3.4-5.0); BLOOD UREA NITROGEN 67.6 mg/dL (7-18)
[2022-01-09 18:14] LABS: CREATININE 6.7 mg/dL (0.55-1.3)
[2022-01-09 18:15] LABS: BILIRUBIN,TOTAL 0.4 mg/dL (0.2-1); TOT PROT 7.7 g/dl (6.4-8.2)
[2022-01-09 19:41] LABS: EPI CELLS >36 /uL (0-25.1); HYALINE CASTS 5 /uL (0-3.1); URINE APPEARANCE TURBID; URINE BACTERIA 1356 /uL (0-1359); URINE BILIRUBIN NEGATIVE (NEGATIVE); URINE COLOR YELLOW; URINE GLUCOSE (UA) 2+ (NEGATIVE); URINE KETONE NEGATIVE (NEGATIVE); URINE LEUK ESTERASE 3+ (NEGATIVE); URINE NITRITE NEGATIVE (NEGATIVE); URINE PROTEIN 4+ (NEGATIVE); URINE RBC 87 /uL (0-23.9); URINE UROBILINOGEN 0.2 mg/dL (0.2-1.0); URINE WBC 661 /uL (0-25.8)
[2022-01-10] MEDS ORDERED: diphenhydrAMINE HCL 25 MG CAPSULE (FP) PO PRN (01:10)
[2022-01-10] MEDS ORDERED: ACETAMINOPHEN 1000 MG/100 ML BAG IVPB PRN (03:43)
[2022-01-10 04:03] VITALS: BMI 37.6
[2022-01-10] MEDS ORDERED: SODIUM BICARBONATE 650 MG TABLET PO SCH (06:00)
[2022-01-10] MEDS: HEPARIN NA (PORCINE) 5,000 UNITS/ML 1ML VIAL SQ SCH ×3 (06:20→21:05)
[2022-01-10] MEDS ORDERED: SODIUM CHLORIDE 250 ML IV PRN (09:55)
[2022-01-10] MEDS ORDERED: VANCOMYCIN 1 GM/200 ML PREMIX BAG IVPB ONE (10:00)
[2022-01-10] MEDS: LOSARTAN POTASSIUM 50 MG TABLET PO SCH (11:01)
[2022-01-10] MEDS: GABAPENTIN 100 MG CAPSULE PO SCH ×2 (11:01→21:05)
[2022-01-10] MEDS: CLOPIDOGREL BISULFATE 75 MG TABLET (FP) PO SCH (11:01)
[2022-01-10 11:38] LABS: HEMATOCRIT 33.1 % (32.4-45.2); HEMOGLOBIN 10.5 GM/dL (10.7-15.3); MCH 29.9 pg (25.7-33.7); MCHC 31.5 g/dl (32.0-36.0); MEAN CELL VOLUME 94.7 fl (80-96); MEAN PLT VOLUME 8.6 fl (7.5-11.1); PLATELET COUNT 183 10^3/uL (134-434); RDW 14.2 % (11.6-15.6); WHITE BLOOD COUNT 5.3 K/mm3 (4.0-10.0)
[2022-01-10] MEDS: acetaZOLAMIDE 250 MG TABLET PO SCH (11:40)
[2022-01-10 12:06] LABS: ALBUMIN 3.4 g/dl (3.4-5.0); BILIRUBIN,TOTAL 0.4 mg/dL (0.2-1); BLOOD UREA NITROGEN 71.9 mg/dL (7-18); CALCIUM 8.5 mg/dL (8.5-10.1); CREATININE 6.8 mg/dL (0.55-1.3); MAGNESIUM 2.3 mg/dL (1.8-2.4); PHOSPHOROUS 8.2 mg/dL (2.5-4.9); TOT PROT 7.4 g/dl (6.4-8.2)
[2022-01-10] MEDS ORDERED: LIDOCAINE HCL 1%, 10 MG/ML (20ML VIAL) ONE (13:38)
[2022-01-10] MEDS ORDERED: BUPIVACAINE HCL/PF 0.5% (5MG/ML) 10 ML VIAL ONE (13:39)
[2022-01-10] MEDS ORDERED: LIDOCAINE 1%/EPI 1:100000 (20 ML MULTI DOSE VIAL) ONE (13:48)
[2022-01-10] MEDS ORDERED: LIDOCAINE 1%/EPI 1:100000 (20 ML MULTI DOSE VIAL) IJ ONE ×2 (14:58)
[2022-01-10] MEDS: MONTELUKAST NA 10 MG TABLET PO SCH (21:05)
[2022-01-10] MEDS ORDERED: hydrALAZINE HCL 20 MG/ML VIAL IVPUSH ONE (21:44)
[2022-01-10] MEDS ORDERED: hydrALAZINE HCL 10 MG TABLET PO ONE (22:20)
[2022-01-11] MEDS: HEPARIN NA (PORCINE) 5,000 UNITS/ML 1ML VIAL SQ SCH ×3 (06:08→21:38)
[2022-01-11] MEDS: GABAPENTIN 100 MG CAPSULE PO SCH ×2 (10:15→21:38)
[2022-01-11 12:07] LABS: BASO % 0.9 % (0-2.0); EOS % 1.3 % (0-4.5); HEMATOCRIT 28.7 % (32.4-45.2); HEMOGLOBIN 9.3 GM/dL (10.7-15.3); LYMPH % 17.1 % (8-40); MCH 30.8 pg (25.7-33.7); MCHC 32.4 g/dl (32.0-36.0); MEAN CELL VOLUME 95.1 fl (80-96); MEAN PLT VOLUME 8.3 fl (7.5-11.1); MONO % 7.5 % (3.8-10.2); NEUT % 73.2 % (42.8-82.8); PLATELET COUNT 146 10^3/uL (134-434); RBC 3.02 M/mm3 (3.60-5.2); WHITE BLOOD COUNT 5.2 K/mm3 (4.0-10.0)
[2022-01-11] MEDS: LOPERAMIDE HCL 2 MG CAPSULE PO PRN (12:23)
[2022-01-11 12:31] LABS: CHLORIDE 107 mmol/L (98-107); SODIUM 141 mmol/L (136-145)
[2022-01-11 12:33] LABS: CALCIUM 8.3 mg/dL (8.5-10.1)
[2022-01-11 12:34] LABS: ALBUMIN 2.9 g/dl (3.4-5.0); ANION GAP 15 MMOL/L (8-16); CO2 19 mmol/L (21-32); GLUCOSE,RANDOM 182 mg/dL (74-106); MAGNESIUM 2.3 mg/dL (1.8-2.4)
[2022-01-11 12:37] LABS: CREATININE 7.3 mg/dL (0.55-1.3); SGOT/AST 9 U/L (15-37); SGPT/ALT 10 U/L (13-61)
[2022-01-11 12:38] LABS: BILIRUBIN,TOTAL 0.6 mg/dL (0.2-1); TOT PROT 6.5 g/dl (6.4-8.2); TOTAL IRON BINDING CAPACITY 127 ug/dL (250-450)
[2022-01-11 12:39] LABS: IRON SERUM 121 ug/dL (50-175)
[2022-01-11 12:40] LABS: ALK PHOS 69 U/L (45-117)
[2022-01-11] MEDS ORDERED: VANCOMYCIN/WATER FOR INJ (PEG) 1,000 MG/200 ML BAG IVPB ONE (13:32)
[2022-01-11] MEDS: prednisoLONE ACETATE 1% OPHTH SUSP 5 ML BOTTLE OD SCH ×2 (17:19→21:39)
[2022-01-11] MEDS: oxyCODONE HCL 5 MG TABLET PO PRN (17:57)
[2022-01-11] MEDS: CLOPIDOGREL BISULFATE 75 MG TABLET (FP) PO SCH (17:59)
[2022-01-11] MEDS: LOSARTAN POTASSIUM 50 MG TABLET PO SCH (17:59)
[2022-01-11] MEDS: acetaZOLAMIDE 250 MG TABLET PO SCH (17:59)
[2022-01-11] MEDS: CIPROFLOXACIN HCL 0.3% OPHTH 2.5ML BOTTLE OD SCH (21:38)
[2022-01-11] MEDS: MONTELUKAST NA 10 MG TABLET PO SCH (21:38)
[2022-01-11] MEDS: INSULIN SLIDING SCALE (NOVOLOG) 1 VIAL SQ SCH (23:50)
[2022-01-12] MEDS ORDERED: BENZOCAINE/MENTH/CETYLPYRD CL 1 EACH LOZENGE MM PRN (04:00)
[2022-01-12] MEDS: BENZOCAINE/MENTHOL (CHLORASEPTIC ) LOZENGE MM PRN (04:12)
[2022-01-12] MEDS: HEPARIN NA (PORCINE) 5,000 UNITS/ML 1ML VIAL SQ SCH ×4 (06:11→21:45)
[2022-01-12] MEDS: INSULIN SLIDING SCALE (NOVOLOG) 1 VIAL SQ SCH ×4 (06:25→21:43)
[2022-01-12 10:14] LABS: EPI CELLS >36 /uL (0-25.1); HYALINE CASTS 1 /uL (0-3.1); URINE APPEARANCE CLEAR; URINE BACTERIA 169 /uL (0-1359); URINE BILIRUBIN NEGATIVE (NEGATIVE); URINE COLOR YELLOW; URINE GLUCOSE (UA) 1+ (NEGATIVE); URINE KETONE NEGATIVE (NEGATIVE); URINE LEUK ESTERASE TRACE (NEGATIVE); URINE NITRITE NEGATIVE (NEGATIVE); URINE PROTEIN 4+ (NEGATIVE); URINE UROBILINOGEN 0.2 mg/dL (0.2-1.0); URINE WBC 53 /uL (0-25.8)
[2022-01-12] MEDS: oxyCODONE HCL 5 MG TABLET PO PRN (10:18)
[2022-01-12 10:38] LABS: URINE RBC 74.8 /uL (0-23.9); YEAST NO SEEN (NEGATIVE)
[2022-01-12 10:55] LABS: HEMATOCRIT 32.1 % (32.4-45.2); HEMOGLOBIN 10.8 GM/dL (10.7-15.3); MCHC 33.6 g/dl (32.0-36.0); MEAN CELL VOLUME 92.1 fl (80-96); MEAN PLT VOLUME 8.8 fl (7.5-11.1); PLATELET COUNT 182 10^3/uL (134-434); RBC 3.48 M/mm3 (3.60-5.2); RDW 13.8 % (11.6-15.6)
[2022-01-12] MEDS: LOSARTAN POTASSIUM 50 MG TABLET PO SCH (11:03)
[2022-01-12] MEDS: GABAPENTIN 100 MG CAPSULE PO SCH ×2 (11:03→21:37)
[2022-01-12] MEDS: CLOPIDOGREL BISULFATE 75 MG TABLET (FP) PO SCH (11:04)
[2022-01-12] MEDS: acetaZOLAMIDE 250 MG TABLET PO SCH (11:05)
[2022-01-12 11:06] LABS: WHITE BLOOD COUNT 9.3 K/mm3 (4.0-10.0)
[2022-01-12 11:13] LABS: CALCIUM 8.5 mg/dL (8.5-10.1); MAGNESIUM 2.1 mg/dL (1.8-2.4)
[2022-01-12 11:16] LABS: CREATININE 4.6 mg/dL (0.55-1.3)
[2022-01-12 11:18] LABS: BILIRUBIN,TOTAL 0.6 mg/dL (0.2-1)
[2022-01-12] MEDS: CIPROFLOXACIN HCL 0.3% OPHTH 2.5ML BOTTLE OD SCH ×4 (11:19→21:46)
[2022-01-12] MEDS: XIIDRA EYE OU SCH (11:19)
[2022-01-12] MEDS: prednisoLONE ACETATE 1% OPHTH SUSP 5 ML BOTTLE OD SCH ×4 (11:20→21:48)
[2022-01-12 11:34] LABS: BLOOD UREA NITROGEN 37.8 mg/dL (7-18)
[2022-01-12 11:39] LABS: ANISOCYTOSIS 0; HELMET CELLS 0; HOWELL-JOLLY BODIES 0; MACROCYTOSIS 0; OVALOCYTE 0; ROULEAU 0; SICKELED CELLS 0; TARGET CELLS 0; TEAR DROP CELLS 0; TOXIC GRANULATION 0
[2022-01-12] MEDS: LOPERAMIDE HCL 2 MG CAPSULE PO PRN (14:08)
[2022-01-12] MEDS: ACETAMINOPHEN 500 MG TABLET (FP) PO PRN (14:20)
[2022-01-12] MEDS: BROMFENAC 0.09% OD SCH ×3 (15:11→21:47)
[2022-01-12] MEDS: EYE OD SCH ×3 (15:11→21:47)
[2022-01-12] MEDS: MONTELUKAST NA 10 MG TABLET PO SCH (21:37)
[2022-01-13] MEDS: BENZOCAINE/MENTHOL (CHLORASEPTIC ) LOZENGE MM PRN ×2 (01:56→06:05)
[2022-01-13] MEDS: INSULIN SLIDING SCALE (NOVOLOG) 1 VIAL SQ SCH ×4 (06:13→22:22)
[2022-01-13] MEDS: HEPARIN NA (PORCINE) 5,000 UNITS/ML 1ML VIAL SQ SCH ×3 (06:16→22:08)
[2022-01-13] MEDS ORDERED: SODIUM CHLORIDE 250 ML IV PRN (08:45)
[2022-01-13] MEDS ORDERED: EPOETIN ALFA-EPBX 4,000 UNIT/ML VIAL SQ ONE (09:00)
[2022-01-13 09:16] LABS: HEMATOCRIT 28.2 % (32.4-45.2); MCH 29.9 pg (25.7-33.7); MCHC 31.9 g/dl (32.0-36.0); MEAN CELL VOLUME 93.6 fl (80-96); MEAN PLT VOLUME 8.5 fl (7.5-11.1); PLATELET COUNT 148 10^3/uL (134-434); RBC 3.01 M/mm3 (3.60-5.2); RDW 14.1 % (11.6-15.6); WHITE BLOOD COUNT 4.3 K/mm3 (4.0-10.0)
[2022-01-13 09:47] LABS: BLOOD UREA NITROGEN 42.3 mg/dL (7-18)
[2022-01-13 09:50] LABS: ALBUMIN 2.8 g/dl (3.4-5.0); CALCIUM 8.1 mg/dL (8.5-10.1)
[2022-01-13 09:52] LABS: CREATININE 5.4 mg/dL (0.55-1.3)
[2022-01-13 09:53] LABS: BILIRUBIN,TOTAL 0.3 mg/dL (0.2-1); TOT PROT 6.2 g/dl (6.4-8.2)
[2022-01-13] MEDS: XIIDRA EYE OU SCH ×2 (12:01→12:19)
[2022-01-13] MEDS: CLOPIDOGREL BISULFATE 75 MG TABLET (FP) PO SCH (12:01)
[2022-01-13] MEDS: GABAPENTIN 100 MG CAPSULE PO SCH ×2 (12:01→22:09)
[2022-01-13] MEDS: acetaZOLAMIDE 250 MG TABLET PO SCH (12:01)
[2022-01-13] MEDS: prednisoLONE ACETATE 1% OPHTH SUSP 5 ML BOTTLE OD SCH ×4 (12:01→22:11)
[2022-01-13] MEDS: EYE OD SCH ×4 (12:02→22:11)
[2022-01-13] MEDS: BROMFENAC 0.09% OD SCH ×4 (12:02→22:11)
[2022-01-13] MEDS: CIPROFLOXACIN HCL 0.3% OPHTH 2.5ML BOTTLE OD SCH ×4 (12:21→22:10)
[2022-01-13] MEDS: LOSARTAN POTASSIUM 50 MG TABLET PO SCH (15:59)
[2022-01-13] MEDS ORDERED: VANCOMYCIN/WATER FOR INJ (PEG) 1 GM/200 ML BAG IVPB ONE (16:15)
[2022-01-13] MEDS: oxyCODONE HCL 5 MG TABLET PO PRN (20:49)
[2022-01-13] MEDS: MONTELUKAST NA 10 MG TABLET PO SCH (22:09)
[2022-01-14] MEDS: HEPARIN NA (PORCINE) 5,000 UNITS/ML 1ML VIAL SQ SCH ×3 (05:52→22:38)
[2022-01-14] MEDS: INSULIN SLIDING SCALE (NOVOLOG) 1 VIAL SQ SCH ×3 (06:32→17:13)
[2022-01-14] MEDS: acetaZOLAMIDE 250 MG TABLET PO SCH (10:06)
[2022-01-14] MEDS: GABAPENTIN 100 MG CAPSULE PO SCH ×2 (10:06→22:39)
[2022-01-14] MEDS: LOSARTAN POTASSIUM 50 MG TABLET PO SCH (10:06)
[2022-01-14] MEDS: CLOPIDOGREL BISULFATE 75 MG TABLET (FP) PO SCH (10:06)
[2022-01-14] MEDS: CIPROFLOXACIN HCL 0.3% OPHTH 2.5ML BOTTLE OD SCH ×4 (10:07→22:38)
[2022-01-14] MEDS: EYE OD SCH ×4 (10:07→22:39)
[2022-01-14] MEDS: BROMFENAC 0.09% OD SCH ×4 (10:07→22:39)
[2022-01-14] MEDS: prednisoLONE ACETATE 1% OPHTH SUSP 5 ML BOTTLE OD SCH ×4 (10:07→22:40)
[2022-01-14] MEDS: XIIDRA EYE OU SCH (10:09)
[2022-01-14 12:53] LABS: HEMATOCRIT 27.9 % (32.4-45.2); MCH 30.3 pg (25.7-33.7); MCHC 32.1 g/dl (32.0-36.0); MEAN CELL VOLUME 94.3 fl (80-96); MEAN PLT VOLUME 8.7 fl (7.5-11.1); PLATELET COUNT 149 10^3/uL (134-434); RBC 2.96 M/mm3 (3.60-5.2); WHITE BLOOD COUNT 4.4 K/mm3 (4.0-10.0)
[2022-01-14 13:38] LABS: ALBUMIN 2.8 g/dl (3.4-5.0); CALCIUM 8.4 mg/dL (8.5-10.1)
[2022-01-14 13:39] LABS: BLOOD UREA NITROGEN 27.9 mg/dL (7-18)
[2022-01-14 13:41] LABS: PHOSPHOROUS 5.7 mg/dL (2.5-4.9)
[2022-01-14 13:43] LABS: BILIRUBIN,TOTAL 0.6 mg/dL (0.2-1); TOT PROT 6.4 g/dl (6.4-8.2)
[2022-01-14] MEDS: MONTELUKAST NA 10 MG TABLET PO SCH (22:39)
[2022-01-15] MEDS: INSULIN SLIDING SCALE (NOVOLOG) 1 VIAL SQ SCH ×5 (00:29→21:49)
[2022-01-15] MEDS: HEPARIN NA (PORCINE) 5,000 UNITS/ML 1ML VIAL SQ SCH ×3 (05:35→21:48)
[2022-01-15] MEDS ORDERED: EPOETIN ALFA-EPBX 10,000 UNIT/ML VIAL SQ ONE (10:00)
[2022-01-15] MEDS ORDERED: SODIUM CHLORIDE 250 ML IV PRN (10:00)
[2022-01-15 10:42] LABS: HEMATOCRIT 26.7 % (32.4-45.2); HEMOGLOBIN 8.7 GM/dL (10.7-15.3); MCH 30.3 pg (25.7-33.7); MCHC 32.7 g/dl (32.0-36.0); MEAN CELL VOLUME 92.6 fl (80-96); MEAN PLT VOLUME 8.5 fl (7.5-11.1); PLATELET COUNT 155 10^3/uL (134-434); RBC 2.88 M/mm3 (3.60-5.2); RDW 13.6 % (11.6-15.6); WHITE BLOOD COUNT 4.3 K/mm3 (4.0-10.0)
[2022-01-15 10:48] LABS: CALCIUM 8.3 mg/dL (8.5-10.1)
[2022-01-15 10:49] LABS: ALBUMIN 2.9 g/dl (3.4-5.0); BLOOD UREA NITROGEN 39.9 mg/dL (7-18)
[2022-01-15 10:52] LABS: CREATININE 5.1 mg/dL (0.55-1.3); PHOSPHOROUS 7.2 mg/dL (2.5-4.9)
[2022-01-15 10:53] LABS: TOT PROT 6.4 g/dl (6.4-8.2)
[2022-01-15 10:54] LABS: BILIRUBIN,TOTAL 0.3 mg/dL (0.2-1)
[2022-01-15] MEDS: GABAPENTIN 100 MG CAPSULE PO SCH ×2 (13:09→21:48)
[2022-01-15] MEDS: CLOPIDOGREL BISULFATE 75 MG TABLET (FP) PO SCH (13:09)
[2022-01-15] MEDS: LOSARTAN POTASSIUM 50 MG TABLET PO SCH (13:09)
[2022-01-15] MEDS: prednisoLONE ACETATE 1% OPHTH SUSP 5 ML BOTTLE OD SCH ×4 (13:10→21:52)
[2022-01-15] MEDS: XIIDRA EYE OU SCH (13:10)
[2022-01-15] MEDS: EYE OD SCH ×4 (13:11→21:51)
[2022-01-15] MEDS: CIPROFLOXACIN HCL 0.3% OPHTH 2.5ML BOTTLE OD SCH ×4 (13:11→21:51)
[2022-01-15] MEDS: acetaZOLAMIDE 250 MG TABLET PO SCH (13:11)
[2022-01-15] MEDS: BROMFENAC 0.09% OD SCH ×4 (13:11→21:51)
[2022-01-15] MEDS: MONTELUKAST NA 10 MG TABLET PO SCH (21:48)
[2022-01-16] MEDS: HEPARIN NA (PORCINE) 5,000 UNITS/ML 1ML VIAL SQ SCH ×2 (06:45→15:46)
[2022-01-16] MEDS: INSULIN SLIDING SCALE (NOVOLOG) 1 VIAL SQ SCH ×3 (06:46→17:00)
[2022-01-16] MEDS: prednisoLONE ACETATE 1% OPHTH SUSP 5 ML BOTTLE OD SCH ×2 (09:45→15:50)
[2022-01-16] MEDS: acetaZOLAMIDE 250 MG TABLET PO SCH (09:46)
[2022-01-16] MEDS: GABAPENTIN 100 MG CAPSULE PO SCH (09:46)
[2022-01-16] MEDS: CIPROFLOXACIN HCL 0.3% OPHTH 2.5ML BOTTLE OD SCH ×2 (09:46→15:55)
[2022-01-16] MEDS: LOSARTAN POTASSIUM 50 MG TABLET PO SCH (09:46)
[2022-01-16] MEDS: CLOPIDOGREL BISULFATE 75 MG TABLET (FP) PO SCH (09:46)
[2022-01-16] MEDS: EYE OD SCH ×2 (09:51→15:49)
[2022-01-16] MEDS: XIIDRA EYE OU SCH (09:51)
[2022-01-16] MEDS: BROMFENAC 0.09% OD SCH ×2 (09:51→15:49)
[2022-01-16] MEDS: LOPERAMIDE HCL 2 MG CAPSULE PO PRN (09:59)
[2022-01-16] MEDS: ACETAMINOPHEN 500 MG TABLET (FP) PO PRN (15:52)
[2022-01-16 16:47] VITALS: BP 146/72; PULSE 88; RESP 16; TEMP 97.7
== END 2022-01-16 17:28 | DRG 361 ==
LOC: JER 15:46 → JERBED 16:08 → J5S 01-10 03:25
PROVIDERS: ADMIT Hospitalist; ATTEND Internal Medicine
PROC: 0HBLXZZ Excision of Left Lower Leg Skin, External Approach (ICD-10-PCS; 2022-01-10)
PROC: 2W1RX6Z Compression of Left Lower Leg using Pressure Dressing (ICD-10-PCS; principal; 2022-01-10 15:00)
DX: L03.116 Cellulitis of left lower limb (principal); S81.802A Unspecified open wound, left lower leg, initial encounter; I12.0 Hypertensive chronic kidney disease with stage 5 chronic kidney disease or end stage renal disease; E11.22 Type 2 diabetes mellitus with diabetic chronic kidney disease; N18.6 End stage renal disease; Q61.3 Polycystic kidney, unspecified; E11.65 Type 2 diabetes mellitus with hyperglycemia; I25.10 Atherosclerotic heart disease of native coronary artery without angina pectoris; K21.9 Gastro-esophageal reflux disease without esophagitis; F41.8 Other specified anxiety disorders; F31.9 Bipolar disorder, unspecified; E11.622 Type 2 diabetes mellitus with other skin ulcer; L97.828 Non-pressure chronic ulcer of other part of left lower leg with other specified severity; E11.42 Type 2 diabetes mellitus with diabetic polyneuropathy; H54.40 Blindness, one eye, unspecified eye; L02.416 Cutaneous abscess of left lower limb; E11.51 Type 2 diabetes mellitus with diabetic peripheral angiopathy without gangrene; B95.62 Methicillin resistant Staphylococcus aureus infection as the cause of diseases classified elsewhere; N39.0 Urinary tract infection, site not specified; E66.9 Obesity, unspecified; Z68.37 Body mass index [BMI] 37.0-37.9, adult; B95.1 Streptococcus, group B, as the cause of diseases classified elsewhere; Z85.41 Personal history of malignant neoplasm of cervix uteri; Z95.5 Presence of coronary angioplasty implant and graft; X58.XXXA Exposure to other specified factors, initial encounter
CPT/HCPCS: 0241U-QW; 36415; 71045-TC-FY; 73590-TC-LT-FY; 80053; 81003; 82272; 82550; 82553; 82803; 82962; 83036; 83540; 83550; 83605; 83735; 84100; 84484; 85025; 85027; 85610; 85730; 86704; 86803; 86850; 86900; 86901; 87040; 87070; 87077; 87086; 87186; 87205; 87340; 87517; 88305-TC; 93005; 93010; 99281-25; C9803-CS; G0463-25; G0480; J1644; Q5106; U0003; U0005

== ENCOUNTER 2022-06-13 15:26 | Observation (INO) | payer OTHER ==
[2022-06-13] MEDS ORDERED: SODIUM CHLORIDE 0.9% 500 ML INFUS.BAG IV ONE (16:30)
[2022-06-13] MEDS ORDERED: morphine SULFATE 4 MG/ML VIAL IVPUSH ONE (16:30)
[2022-06-13] MEDS ORDERED: ONDANSETRON 4 MG/2 ML VIAL IVPUSH ONE (16:33)
[2022-06-13] MEDS ORDERED: ACETAMINOPHEN 1000 MG/100 ML BAG IVPB ONE (16:39)
[2022-06-13] MEDS ORDERED: ACETAMINOPHEN INJECTION 100 ML IVPB ONE (16:42)
[2022-06-13] MEDS ORDERED: ONDANSETRON 4 MG/2 ML VIAL ONE (16:42)
[2022-06-13 18:22] LABS: BASO % 0.7 % (0-2.0); EOS % 1.5 % (0-4.5); HEMATOCRIT 32.1 % (32.4-45.2); HEMOGLOBIN 10.3 GM/dL (10.7-15.3); LYMPH % 15.3 % (8-40); MCH 30.5 pg (25.7-33.7); MEAN CELL VOLUME 95.3 fl (80-96); MEAN PLT VOLUME 8.5 fl (7.5-11.1); MONO % 10.1 % (3.8-10.2); NEUT % 72.4 % (42.8-82.8); PLATELET COUNT 144 10^3/uL (134-434); RBC 3.37 M/mm3 (3.60-5.2); RDW 14.8 % (11.6-15.6)
[2022-06-13 18:36] LABS: ALBUMIN 3.3 g/dl (3.4-5.0); BLOOD UREA NITROGEN 19.2 mg/dL (7-18)
[2022-06-13 18:40] LABS: TOT PROT 7.3 g/dl (6.4-8.2)
[2022-06-13 18:41] LABS: BILIRUBIN,TOTAL 0.4 mg/dL (0.2-1)
[2022-06-13] MEDS ORDERED: LACTULOSE 20 GM/30 ML UDC (FOR ORAL USE ONLY) PO ONE (21:41)
[2022-06-13] MEDS ORDERED: POLYETHYLENE GLYCOL (HEALTHYLAX) 3350 17 GM PACKET PO ONE (21:45)
[2022-06-14] MEDS ORDERED: SIMETHICONE 80 MG TAB.CHEW (FP) PO PRN (00:09)
[2022-06-14] MEDS ORDERED: MINERAL OIL ENEMA 133 ML ENEMA PR ONE (00:09)
[2022-06-14] MEDS ORDERED: MINERAL OIL ENEMA 133 ML ENEMA RC ONE (00:09)
[2022-06-14] MEDS ORDERED: POLYETHYLENE GLYCOL (HEALTHYLAX) 3350 17 GM PACKET PO SCH (00:15)
[2022-06-14] MEDS ORDERED: ACETAMINOPHEN 1000 MG/100 ML BAG IVPB ONE (03:34)
[2022-06-14] MEDS ORDERED: PATIENT'S OWN MEDICATION (NON-FORMULARY) (Insulin Lispro [Humalog] 100 UNIT/ML Vial) SQ SCH (06:00)
[2022-06-14] MEDS ORDERED: PATIENT'S OWN MEDICATION (NON-FORMULARY) (Dorzolamide/Timolol/Pf [Dorzolamide-Timolol 2%-0 OU SCH (06:00)
[2022-06-14] MEDS ORDERED: POLYETHYLENE GLYCOL (HEALTHYLAX) 3350 17 GM PACKET ONE (06:24)
[2022-06-14] MEDS ORDERED: ACETAMINOPHEN INJECTION 100 ML IVPB ONE (06:24)
[2022-06-14] MEDS ORDERED: HEPARIN NA (PORCINE) 5,000 UNITS/ML 1ML VIAL ONE (06:25)
[2022-06-14] MEDS: POLYETHYLENE GLYCOL (HEALTHYLAX) 3350 17 GM PACKET PO SCH ×3 (06:26→21:31)
[2022-06-14] MEDS: HEPARIN NA (PORCINE) 5,000 UNITS/ML 1ML VIAL SQ SCH ×3 (06:26→21:32)
[2022-06-14] MEDS: TIMOLOL 0.5% OPHTHALMIC SOL 5 ML BOTTLE OU SCH ×3 (06:44→21:33)
[2022-06-14] MEDS: DORZOLAMIDE 2% HCL OPHTHALMIC SOLUTION 10 ML BOTTLE OU SCH ×3 (06:45→21:33)
[2022-06-14] MEDS ORDERED: INSULIN SLIDING SCALE (NOVOLOG) 1 VIAL SQ SCH (07:00)
[2022-06-14 07:09] LABS: EOS % 1.1 % (0-4.5); HEMOGLOBIN 10.7 GM/dL (10.7-15.3); LYMPH % 14.3 % (8-40); MCH 30.9 pg (25.7-33.7); MCHC 32.4 g/dl (32.0-36.0); MEAN CELL VOLUME 95.5 fl (80-96); MEAN PLT VOLUME 8.8 fl (7.5-11.1); MONO % 6.7 % (3.8-10.2); NEUT % 76.9 % (42.8-82.8); PLATELET COUNT 165 10^3/uL (134-434); RBC 3.45 M/mm3 (3.60-5.2); RDW 14.9 % (11.6-15.6)
[2022-06-14 07:22] LABS: CALCIUM 8.8 mg/dL (8.5-10.1)
[2022-06-14 07:23] LABS: ALBUMIN 3.3 g/dl (3.4-5.0); BLOOD UREA NITROGEN 28.2 mg/dL (7-18)
[2022-06-14 07:26] LABS: CREATININE 4.2 mg/dL (0.55-1.3); PHOSPHOROUS 5.9 mg/dL (2.5-4.9)
[2022-06-14 07:27] LABS: BILIRUBIN,TOTAL 0.4 mg/dL (0.2-1); TOT PROT 7.2 g/dl (6.4-8.2)
[2022-06-14] MEDS ORDERED: PANTOPRAZOLE SODIUM 40 MG VIAL IVPUSH SCH (10:00)
[2022-06-14] MEDS ORDERED: INSULIN (NOVOLOG) ASPART 100 UNITS/ML 10ML VIAL ONE (10:15)
[2022-06-14] MEDS: CHOLECALCIFEROL (VIT D3) 1,000 UNIT (25 MCG) TABLET PO SCH (10:20)
[2022-06-14] MEDS: GABAPENTIN 100 MG CAPSULE PO SCH ×2 (10:20→21:31)
[2022-06-14] MEDS: ASPIRIN 81 MG CHEWABLE TABLETS PO SCH (10:20)
[2022-06-14] MEDS: LOSARTAN POTASSIUM 50 MG TABLET PO SCH (10:22)
[2022-06-14] MEDS: INSULIN (LEVEMIR) 100 UNITS/ML UNITS SQ SCH ×2 (10:25→21:32)
[2022-06-14] MEDS: INSULIN SLIDING SCALE (NOVOLOG) 1 VIAL SQ SCH ×3 (10:25→21:32)
[2022-06-14] MEDS: CLOPIDOGREL BISULFATE 75 MG TABLET (FP) PO SCH (10:31)
[2022-06-14 12:36] VITALS: BMI 36.3
[2022-06-14] MEDS: MONTELUKAST NA 10 MG TABLET PO SCH (21:32)
[2022-06-15] MEDS: ACETAMINOPHEN 500 MG TABLET (FP) PO PRN (03:09)
[2022-06-15] MEDS ORDERED: DEXTROSE 50%-WATER - 25 GM/50 ML VIAL IVPUSH ONE (06:29)
[2022-06-15] MEDS: TIMOLOL 0.5% OPHTHALMIC SOL 5 ML BOTTLE OU SCH ×3 (06:38→22:05)
[2022-06-15] MEDS: HEPARIN NA (PORCINE) 5,000 UNITS/ML 1ML VIAL SQ SCH ×4 (06:38→22:22)
[2022-06-15] MEDS: DORZOLAMIDE 2% HCL OPHTHALMIC SOLUTION 10 ML BOTTLE OU SCH ×3 (06:38→22:05)
[2022-06-15] MEDS: POLYETHYLENE GLYCOL (HEALTHYLAX) 3350 17 GM PACKET PO SCH (06:38)
[2022-06-15] MEDS: INSULIN SLIDING SCALE (NOVOLOG) 1 VIAL SQ SCH ×4 (06:39→22:05)
[2022-06-15] MEDS ORDERED: DEXTROSE 50%-WATER - 25 GM/50 ML VIAL IVPUSH PRN (06:44)
[2022-06-15] MEDS ORDERED: DEXTROSE 5%-0.45% SALINE 1,000 ML IV SCH (06:45)
[2022-06-15] MEDS ORDERED: DEXTROSE 50%-WATER 25 GM/50 ML DISP.SYRIN IVPUSH PRN (07:39)
[2022-06-15] MEDS: ASPIRIN 81 MG CHEWABLE TABLETS PO SCH (09:24)
[2022-06-15] MEDS: GABAPENTIN 100 MG CAPSULE PO SCH ×2 (09:26→22:05)
[2022-06-15] MEDS: CHOLECALCIFEROL (VIT D3) 1,000 UNIT (25 MCG) TABLET PO SCH (09:26)
[2022-06-15] MEDS: CLOPIDOGREL BISULFATE 75 MG TABLET (FP) PO SCH ×2 (09:27→10:00)
[2022-06-15] MEDS: LOSARTAN POTASSIUM 50 MG TABLET PO SCH ×2 (09:27→10:00)
[2022-06-15] MEDS ORDERED: INSULIN (NOVOLOG) ASPART 100 UNITS/ML 10ML VIAL ONE (19:02)
[2022-06-15] MEDS: MONTELUKAST NA 10 MG TABLET PO SCH (22:05)
[2022-06-16] MEDS ORDERED: MELATONIN 5 MG TABLETS PO ONE (01:26)
[2022-06-16] MEDS: ACETAMINOPHEN 500 MG TABLET (FP) PO PRN (01:38)
[2022-06-16] MEDS: HEPARIN NA (PORCINE) 5,000 UNITS/ML 1ML VIAL SQ SCH ×3 (05:33→21:51)
[2022-06-16] MEDS: DORZOLAMIDE 2% HCL OPHTHALMIC SOLUTION 10 ML BOTTLE OU SCH ×3 (07:11→21:55)
[2022-06-16] MEDS: TIMOLOL 0.5% OPHTHALMIC SOL 5 ML BOTTLE OU SCH ×3 (07:11→21:55)
[2022-06-16] MEDS: INSULIN SLIDING SCALE (NOVOLOG) 1 VIAL SQ SCH ×4 (07:15→21:54)
[2022-06-16] MEDS ORDERED: SODIUM CHLORIDE 250 ML IV PRN (09:18)
[2022-06-16] MEDS: LOSARTAN POTASSIUM 50 MG TABLET PO SCH (10:11)
[2022-06-16] MEDS: GABAPENTIN 100 MG CAPSULE PO SCH ×2 (10:11→21:52)
[2022-06-16] MEDS: CHOLECALCIFEROL (VIT D3) 1,000 UNIT (25 MCG) TABLET PO SCH (10:11)
[2022-06-16] MEDS: ASPIRIN 81 MG CHEWABLE TABLETS PO SCH (10:11)
[2022-06-16] MEDS: CLOPIDOGREL BISULFATE 75 MG TABLET (FP) PO SCH (10:11)
[2022-06-16] MEDS: MONTELUKAST NA 10 MG TABLET PO SCH (21:51)
[2022-06-17] MEDS: ACETAMINOPHEN 500 MG TABLET (FP) PO PRN (01:36)
[2022-06-17] MEDS: DORZOLAMIDE 2% HCL OPHTHALMIC SOLUTION 10 ML BOTTLE OU SCH ×2 (06:15→13:36)
[2022-06-17] MEDS: TIMOLOL 0.5% OPHTHALMIC SOL 5 ML BOTTLE OU SCH ×2 (06:15→13:36)
[2022-06-17] MEDS: HEPARIN NA (PORCINE) 5,000 UNITS/ML 1ML VIAL SQ SCH ×3 (06:15→13:50)
[2022-06-17] MEDS: INSULIN SLIDING SCALE (NOVOLOG) 1 VIAL SQ SCH ×3 (06:22→16:26)
[2022-06-17] MEDS: ASPIRIN 81 MG CHEWABLE TABLETS PO SCH (09:55)
[2022-06-17] MEDS: GABAPENTIN 100 MG CAPSULE PO SCH (09:56)
[2022-06-17] MEDS: CLOPIDOGREL BISULFATE 75 MG TABLET (FP) PO SCH (09:56)
[2022-06-17] MEDS: LOSARTAN POTASSIUM 50 MG TABLET PO SCH (09:56)
[2022-06-17] MEDS: CHOLECALCIFEROL (VIT D3) 1,000 UNIT (25 MCG) TABLET PO SCH (09:56)
[2022-06-17] MEDS ORDERED: INSULIN (NOVOLOG) ASPART 100 UNITS/ML 10ML VIAL ONE ×2 (10:58→16:41)
[2022-06-17 11:21] VITALS: RESP 20
[2022-06-17] MEDS ORDERED: SODIUM CHLORIDE 250 ML IV PRN ×2 (14:16)
[2022-06-17 14:48] VITALS: BP 135/84; PULSE 88; TEMP 98.7
[2022-06-17 15:19] LABS: HEMATOCRIT 33.3 % (32.4-45.2); HEMOGLOBIN 10.7 GM/dL (10.7-15.3); MCHC 32.1 g/dl (32.0-36.0); MEAN CELL VOLUME 96.7 fl (80-96); MEAN PLT VOLUME 7.8 fl (7.5-11.1); PLATELET COUNT 191 10^3/uL (134-434); RBC 3.44 M/mm3 (3.60-5.2); RDW 14.6 % (11.6-15.6)
[2022-06-18] MEDS ORDERED: EPOETIN ALFA-EPBX 4,000 UNIT/ML VIAL SQ ONE (14:16)
== END 2022-06-17 16:52 | disposition home or self-care (01) ==
LOC: JER 15:26 → JERBED 22:13 → J6S 06-14 09:28
PROVIDERS: ADMIT Internal Medicine; ATTEND Internal Medicine
PROC: 3E033NZ Introduction of Analgesics, Hypnotics, Sedatives into Peripheral Vein, Percutaneous Approach (ICD-10-PCS; principal; 2022-06-13)
PROC: 3E033GC Introduction of Other Therapeutic Substance into Peripheral Vein, Percutaneous Approach (ICD-10-PCS; 2022-06-13)
PROC: 3E0337Z Introduction of Electrolytic and Water Balance Substance into Peripheral Vein, Percutaneous Approach (ICD-10-PCS; 2022-06-13)
PROC: 3E013VG Introduction of Insulin into Subcutaneous Tissue, Percutaneous Approach (ICD-10-PCS; 2022-06-13)
DX: R10.32 Left lower quadrant pain (principal); Z87.891 Personal history of nicotine dependence; E66.01 Morbid (severe) obesity due to excess calories; Z68.36 Body mass index [BMI] 36.0-36.9, adult; M06.9 Rheumatoid arthritis, unspecified; I73.9 Peripheral vascular disease, unspecified; J45.909 Unspecified asthma, uncomplicated; F41.9 Anxiety disorder, unspecified; F31.9 Bipolar disorder, unspecified; K59.00 Constipation, unspecified; Z91.011 Allergy to milk products; R19.7 Diarrhea, unspecified; Z79.4 Long term (current) use of insulin; Z86.16 Personal history of COVID-19; K52.9 Noninfective gastroenteritis and colitis, unspecified; Q61.3 Polycystic kidney, unspecified; Z99.2 Dependence on renal dialysis; Z85.41 Personal history of malignant neoplasm of cervix uteri; E11.22 Type 2 diabetes mellitus with diabetic chronic kidney disease; I12.0 Hypertensive chronic kidney disease with stage 5 chronic kidney disease or end stage renal disease; N18.6 End stage renal disease
CPT/HCPCS: 0241U-QW; 36415; 71045-TC-FY; 74176-TC; 80053; 82272; 82550; 82962; 83036; 83605; 83690; 83735; 84100; 84484; 84703; 85025; 85027; 86803; 87340; 93005; 93010; 96361; 96372; 96374; 96375; 96376; 99285-25; G0378; J1644

== ENCOUNTER 2022-10-19 15:11 | Inpatient (IN) | payer OTHER ==
[2022-10-19] MEDS ORDERED: morphine CARPU-JECT 4 MG/1 ML DISP.SYRIN IVPUSH ONE (15:41)
[2022-10-19] MEDS ORDERED: ACETAMINOPHEN 1000 MG/100 ML BAG IVPB ONE (15:41)
[2022-10-19 16:30] LABS: BASO % 0.7 % (0-2.0); EOS % 0.9 % (0-4.5); HEMATOCRIT 26.5 % (32.4-45.2); HEMOGLOBIN 8.3 GM/dL (10.7-15.3); LYMPH % 7.8 % (8-40); MCH 29.2 pg (25.7-33.7); MCHC 31.1 g/dl (32.0-36.0); MEAN CELL VOLUME 93.9 fl (80-96); MEAN PLT VOLUME 7.7 fl (7.5-11.1); NEUT % 84.6 % (42.8-82.8); PLATELET COUNT 179 10^3/uL (134-434); RBC 2.82 M/mm3 (3.60-5.2); RDW 16.6 % (11.6-15.6); WHITE BLOOD COUNT 6.5 K/mm3 (4.0-10.0)
[2022-10-19] MEDS ORDERED: ACETAMINOPHEN INJECTION 100 ML IVPB ONE (16:35)
[2022-10-19] MEDS ORDERED: morphine SULFATE 4 MG/ML VIAL ONE (16:35)
[2022-10-19 16:37] LABS: INR 1.17 (0.83-1.09); PROTHROMBIN TIME (PATIENT) 13.6 SEC (9.7-13.0)
[2022-10-19 16:39] LABS: ACTIVATED PTT 32.5 SECONDS (25.2-36.5)
[2022-10-19] MEDS ORDERED: LIDOCAINE HCL 1%, 10 MG/ML (50 mL VIAL) SQ ONE (17:20)
[2022-10-19] MEDS ORDERED: MIDAZOLAM HCL 2 MG/2 ML SINGLE DOSE VIAL IVPUSH ONE (17:20)
[2022-10-19] MEDS ORDERED: MIDAZOLAM HCL 2 MG/2 ML SINGLE DOSE VIAL ONE (17:22)
[2022-10-19] MEDS ORDERED: LIDOCAINE HCL/PF 1% SDV 5ML VIAL ONE (17:23)
[2022-10-19 17:39] LABS: ALBUMIN 3.2 g/dl (3.4-5.0); BILIRUBIN,TOTAL 0.3 mg/dL (0.2-1); BLOOD UREA NITROGEN 45.6 mg/dL (7-18); CALCIUM 8.4 mg/dL (8.5-10.1); CREATININE 5.6 mg/dL (0.55-1.3); TOT PROT 7.1 g/dl (6.4-8.2)
[2022-10-19] MEDS ORDERED: LOPERAMIDE HCL 2 MG CAPSULE PO PRN (21:43)
[2022-10-19] MEDS ORDERED: SIMETHICONE 80 MG TAB.CHEW (FP) PO PRN (21:43)
[2022-10-19] MEDS ORDERED: PATIENT'S OWN MEDICATION (NON-FORMULARY) (Dorzolamide/Timolol/Pf [Dorzolamide-Timolol 2%-0 OU SCH (22:00)
[2022-10-19] MEDS ORDERED: morphine CARPU-JECT 2 MG/1 ML DISP.SYRIN IM PRN (22:03)
[2022-10-19] MEDS ORDERED: ACETAMINOPHEN 1000 MG/100 ML BAG IVPB PRN (22:04)
[2022-10-19] MEDS ORDERED: INSULIN (NOVOLOG) ASPART 100 UNITS/ML 10ML VIAL ONE (22:42)
[2022-10-19] MEDS: GABAPENTIN 100 MG CAPSULE PO SCH (22:43)
[2022-10-19] MEDS: INSULIN SLIDING SCALE (NOVOLOG) 1 VIAL SQ SCH (22:44)
[2022-10-19] MEDS: TIMOLOL 0.5% OPHTHALMIC SOL 5 ML BOTTLE OU SCH ×2 (22:54→23:00)
[2022-10-19] MEDS: DORZOLAMIDE 2% HCL OPHTHALMIC SOLUTION 10 ML BOTTLE OU SCH ×2 (22:54→23:00)
[2022-10-19] MEDS: BRIMONIDINE TARTRATE 0.2% OPHTHALMIC 5 ML BOTTLE OU SCH ×2 (22:57→22:59)
[2022-10-20] MEDS: DORZOLAMIDE 2% HCL OPHTHALMIC SOLUTION 10 ML BOTTLE OU SCH ×3 (05:51→22:26)
[2022-10-20] MEDS: BRIMONIDINE TARTRATE 0.2% OPHTHALMIC 5 ML BOTTLE OU SCH ×3 (05:51→22:26)
[2022-10-20] MEDS: INSULIN SLIDING SCALE (NOVOLOG) 1 VIAL SQ SCH ×4 (06:36→21:31)
[2022-10-20 07:37] LABS: BASO % 0.8 % (0-2.0); EOS % 1.2 % (0-4.5); HEMATOCRIT 24.7 % (32.4-45.2); LYMPH % 8.8 % (8-40); MCH 30.8 pg (25.7-33.7); MCHC 32.4 g/dl (32.0-36.0); MEAN CELL VOLUME 94.9 fl (80-96); MEAN PLT VOLUME 8.7 fl (7.5-11.1); MONO % 8.7 % (3.8-10.2); NEUT % 80.5 % (42.8-82.8); PLATELET COUNT 187 10^3/uL (134-434); RDW 16.1 % (11.6-15.6); WHITE BLOOD COUNT 6.6 K/mm3 (4.0-10.0)
[2022-10-20 07:48] LABS: POTASSIUM 4.2 mmol/L (3.5-5.1)
[2022-10-20 07:51] LABS: CALCIUM 8.2 mg/dL (8.5-10.1)
[2022-10-20 07:52] LABS: ALBUMIN 3.3 g/dl (3.4-5.0); BLOOD UREA NITROGEN 53.5 mg/dL (7-18); MAGNESIUM 2.2 mg/dL (1.8-2.4)
[2022-10-20 07:55] LABS: CREATININE 6.2 mg/dL (0.55-1.3)
[2022-10-20 07:56] LABS: BILIRUBIN,TOTAL 0.6 mg/dL (0.2-1)
[2022-10-20 08:34] LABS: PHOSPHOROUS 8.9 mg/dL (2.5-4.9)
[2022-10-20] MEDS ORDERED: ROPIVACAINE HCL 0.5% 30ML VIAL ONE (09:26)
[2022-10-20] MEDS ORDERED: DEXAMETHASONE SOD PHOSPHATE 10 MG/1 ML VIAL ONE (09:26)
[2022-10-20] MEDS ORDERED: PROPOFOL 20 ML ONE ×2 (09:30→10:08)
[2022-10-20] MEDS ORDERED: MIDAZOLAM HCL 2 MG/2 ML SINGLE DOSE VIAL ONE (09:31)
[2022-10-20] MEDS ORDERED: MONTELUKAST NA 10 MG TABLET PO SCH (10:00)
[2022-10-20] MEDS ORDERED: LOSARTAN POTASSIUM 50 MG TABLET PO SCH (10:00)
[2022-10-20] MEDS ORDERED: CHOLECALCIFEROL (VIT D3) 1,000 UNIT (25 MCG) TABLET PO SCH (10:00)
[2022-10-20] MEDS ORDERED: INSULIN (LEVEMIR) 100 UNITS/ML UNITS SQ SCH ×2 (10:00→22:00)
[2022-10-20] MEDS ORDERED: FERROUS SO4 325 MG TABLET (FP) PO SCH (10:00)
[2022-10-20] MEDS ORDERED: ceFAZolin SODIUM 1 GM VIAL IVPB ONE (10:10)
[2022-10-20 11:25] VITALS: BMI 37.8
[2022-10-20] MEDS ORDERED: LACTATED RINGERS SOLUTION 1,000 ML IV SCH (13:15)
[2022-10-20] MEDS ORDERED: SIMETHICONE 80 MG TAB.CHEW (FP) PO PRN (13:37)
[2022-10-20] MEDS ORDERED: LOPERAMIDE HCL 2 MG CAPSULE PO PRN (13:37)
[2022-10-20] MEDS ORDERED: ACETAMINOPHEN 1000 MG/100 ML BAG IVPB PRN (13:37)
[2022-10-20] MEDS: GABAPENTIN 100 MG CAPSULE PO SCH ×2 (14:59→21:28)
[2022-10-20] MEDS: TIMOLOL 0.5% OPHTHALMIC SOL 5 ML BOTTLE OU SCH ×2 (14:59→22:26)
[2022-10-20] MEDS ORDERED: INSULIN (NOVOLOG) ASPART 100 UNITS/ML 10ML VIAL ONE (21:09)
[2022-10-20] MEDS: ASPIRIN COATED 81 MG TABLET.EC PO SCH (21:28)
[2022-10-20 22:47] LABS: GLUCOSE,RANDOM 431 mg/dL (74-106)
[2022-10-20] MEDS ORDERED: INSULIN (LEVEMIR) 100 UNITS/ML UNITS SQ ONE ×2 (22:54)
[2022-10-21] MEDS ORDERED: BENZOCAINE/MENTH/CETYLPYRD CL 1 EACH LOZENGE MM ONE ×2 (03:35→09:03)
[2022-10-21] MEDS ORDERED: INSULIN (NOVOLOG) ASPART 100 UNITS/ML 10ML VIAL ONE ×2 (06:30→21:13)
[2022-10-21] MEDS: INSULIN (LEVEMIR) 100 UNITS/ML UNITS SQ SCH ×2 (06:45→21:49)
[2022-10-21] MEDS: BRIMONIDINE TARTRATE 0.2% OPHTHALMIC 5 ML BOTTLE OU SCH ×3 (06:45→21:52)
[2022-10-21] MEDS: DORZOLAMIDE 2% HCL OPHTHALMIC SOLUTION 10 ML BOTTLE OU SCH ×3 (06:45→21:51)
[2022-10-21] MEDS: INSULIN SLIDING SCALE (NOVOLOG) 1 VIAL SQ SCH ×4 (06:46→21:49)
[2022-10-21 07:25] LABS: HEMATOCRIT 21.3 % (32.4-45.2); HEMOGLOBIN 7.1 GM/dL (10.7-15.3); MCH 31.5 pg (25.7-33.7); MCHC 33.2 g/dl (32.0-36.0); MEAN CELL VOLUME 94.8 fl (80-96); MEAN PLT VOLUME 8.9 fl (7.5-11.1); PLATELET COUNT 176 10^3/uL (134-434); RBC 2.25 M/mm3 (3.60-5.2); WHITE BLOOD COUNT 8.3 K/mm3 (4.0-10.0)
[2022-10-21 07:32] LABS: CHLORIDE 101 mmol/L (98-107); POTASSIUM 4.6 mmol/L (3.5-5.1); SODIUM 139 mmol/L (136-145)
[2022-10-21 07:34] LABS: ANION GAP 14 MMOL/L (8-16); CALCIUM 7.4 mg/dL (8.5-10.1); CO2 24 mmol/L (21-32); GLUCOSE,RANDOM 242 mg/dL (74-106); MAGNESIUM 2.1 mg/dL (1.8-2.4)
[2022-10-21 07:37] LABS: CREATININE 7.4 mg/dL (0.55-1.3)
[2022-10-21 08:03] LABS: PHOSPHOROUS 9.2 mg/dL (2.5-4.9)
[2022-10-21] MEDS ORDERED: SODIUM CHLORIDE 250 ML IV PRN (08:07)
[2022-10-21] MEDS ORDERED: EPOETIN ALFA-EPBX 10,000 UNIT/ML VIAL SQ ONE (08:15)
[2022-10-21] MEDS: TIMOLOL 0.5% OPHTHALMIC SOL 5 ML BOTTLE OU SCH ×2 (11:31→21:51)
[2022-10-21] MEDS: MONTELUKAST NA 10 MG TABLET PO SCH (11:32)
[2022-10-21] MEDS: LOSARTAN POTASSIUM 50 MG TABLET PO SCH (11:32)
[2022-10-21] MEDS: ASPIRIN COATED 81 MG TABLET.EC PO SCH ×2 (11:32→21:50)
[2022-10-21] MEDS: CHOLECALCIFEROL (VIT D3) 1,000 UNIT (25 MCG) TABLET PO SCH (11:32)
[2022-10-21] MEDS: FERROUS SO4 325 MG TABLET (FP) PO SCH (11:32)
[2022-10-21] MEDS: GABAPENTIN 100 MG CAPSULE PO SCH ×2 (11:32→21:50)
[2022-10-21] MEDS: SEVELAMER CARBONATE 800 MG TAB (FP) PO SCH (18:12)
[2022-10-21] MEDS ORDERED: amLODIPine BESYLATE 5 MG TABLET (FP) PO ONE (18:36)
[2022-10-21] MEDS ORDERED: CLOPIDOGREL BISULFATE 75 MG TABLET (FP) PO ONE (18:44)
[2022-10-22] MEDS: INSULIN SLIDING SCALE (NOVOLOG) 1 VIAL SQ SCH ×4 (06:30→21:29)
[2022-10-22] MEDS: INSULIN (LEVEMIR) 100 UNITS/ML UNITS SQ SCH ×2 (06:30→21:29)
[2022-10-22] MEDS: BRIMONIDINE TARTRATE 0.2% OPHTHALMIC 5 ML BOTTLE OU SCH ×3 (06:31→21:33)
[2022-10-22] MEDS: DORZOLAMIDE 2% HCL OPHTHALMIC SOLUTION 10 ML BOTTLE OU SCH ×3 (06:31→21:33)
[2022-10-22 07:59] LABS: HEMATOCRIT 25.7 % (32.4-45.2); HEMOGLOBIN 8.5 GM/dL (10.7-15.3); MCH 31.1 pg (25.7-33.7); MCHC 33.2 g/dl (32.0-36.0); MEAN CELL VOLUME 93.7 fl (80-96); MEAN PLT VOLUME 8.7 fl (7.5-11.1); PLATELET COUNT 179 10^3/uL (134-434); RBC 2.75 M/mm3 (3.60-5.2); RDW 16.9 % (11.6-15.6); WHITE BLOOD COUNT 7.6 K/mm3 (4.0-10.0)
[2022-10-22 08:13] LABS: POTASSIUM 3.4 mmol/L (3.5-5.1)
[2022-10-22 08:20] LABS: CALCIUM 7.9 mg/dL (8.5-10.1)
[2022-10-22 08:21] LABS: CREATININE 5.1 mg/dL (0.55-1.3); MAGNESIUM 1.8 mg/dL (1.8-2.4); PHOSPHOROUS 6.7 mg/dL (2.5-4.9)
[2022-10-22 09:04] LABS: BLOOD UREA NITROGEN 40.7 mg/dL (7-18)
[2022-10-22] MEDS: LOSARTAN POTASSIUM 50 MG TABLET PO SCH (09:35)
[2022-10-22] MEDS: amLODIPine BESYLATE 5 MG TABLET (FP) PO SCH (09:35)
[2022-10-22] MEDS: FERROUS SO4 325 MG TABLET (FP) PO SCH (09:35)
[2022-10-22] MEDS: CHOLECALCIFEROL (VIT D3) 1,000 UNIT (25 MCG) TABLET PO SCH (09:36)
[2022-10-22] MEDS: MONTELUKAST NA 10 MG TABLET PO SCH (09:36)
[2022-10-22] MEDS: GABAPENTIN 100 MG CAPSULE PO SCH ×2 (09:36→21:29)
[2022-10-22] MEDS: SEVELAMER CARBONATE 800 MG TAB (FP) PO SCH ×3 (09:36→17:52)
[2022-10-22] MEDS: TIMOLOL 0.5% OPHTHALMIC SOL 5 ML BOTTLE OU SCH ×2 (09:36→21:34)
[2022-10-22] MEDS: ASPIRIN COATED 81 MG TABLET.EC PO SCH ×2 (09:36→21:29)
[2022-10-22] MEDS ORDERED: EPOETIN ALFA-EPBX 10,000 UNIT/ML VIAL SQ ONE (13:12)
[2022-10-22] MEDS ORDERED: INSULIN (NOVOLOG) ASPART 100 UNITS/ML 10ML VIAL ONE (17:59)
[2022-10-23] MEDS: BRIMONIDINE TARTRATE 0.2% OPHTHALMIC 5 ML BOTTLE OU SCH ×3 (05:52→21:44)
[2022-10-23] MEDS: DORZOLAMIDE 2% HCL OPHTHALMIC SOLUTION 10 ML BOTTLE OU SCH ×3 (06:03→21:45)
[2022-10-23] MEDS: INSULIN SLIDING SCALE (NOVOLOG) 1 VIAL SQ SCH ×4 (06:03→21:39)
[2022-10-23] MEDS: INSULIN (LEVEMIR) 100 UNITS/ML UNITS SQ SCH ×2 (06:03→21:40)
[2022-10-23] MEDS: SEVELAMER CARBONATE 800 MG TAB (FP) PO SCH ×3 (08:51→18:15)
[2022-10-23] MEDS ORDERED: SODIUM CHLORIDE 250 ML IV PRN ×2 (09:00→14:47)
[2022-10-23] MEDS ORDERED: EPOETIN ALFA-EPBX 10,000 UNIT, EPOETIN ALFA-EPBX 2,000 UNIT, EPOETIN ALFA-EPBX 3,000 UNIT IVPUSH ONE (09:15)
[2022-10-23] MEDS ORDERED: CLOPIDOGREL BISULFATE 75 MG TABLET (FP) PO SCH (10:00)
[2022-10-23] MEDS: TIMOLOL 0.5% OPHTHALMIC SOL 5 ML BOTTLE OU SCH ×2 (10:16→21:45)
[2022-10-23] MEDS: CHOLECALCIFEROL (VIT D3) 1,000 UNIT (25 MCG) TABLET PO SCH (10:17)
[2022-10-23] MEDS ORDERED: ONDANSETRON 4 MG/2 ML VIAL IVPUSH PRN (11:58)
[2022-10-23] MEDS: CLOPIDOGREL BISULFATE 75 MG TABLET (FP) PO SCH (12:00)
[2022-10-23] MEDS: ASPIRIN COATED 81 MG TABLET.EC PO SCH ×2 (12:03→21:39)
[2022-10-23] MEDS: amLODIPine BESYLATE 5 MG TABLET (FP) PO SCH (12:03)
[2022-10-23] MEDS: MONTELUKAST NA 10 MG TABLET PO SCH (12:03)
[2022-10-23] MEDS: GABAPENTIN 100 MG CAPSULE PO SCH ×2 (12:03→21:39)
[2022-10-23] MEDS: LOSARTAN POTASSIUM 50 MG TABLET PO SCH (12:04)
[2022-10-23] MEDS: FERROUS SO4 325 MG TABLET (FP) PO SCH (12:04)
[2022-10-23] MEDS ORDERED: CEFAZOLIN 1 GM in DEXTROSE 5%-WATER - 50 ML IVPB ONE (13:00)
[2022-10-23 14:50] LABS: HEMATOCRIT 24.4 % (32.4-45.2); HEMOGLOBIN 8.1 GM/dL (10.7-15.3); MCHC 33.3 g/dl (32.0-36.0); MEAN CELL VOLUME 93.3 fl (80-96); MEAN PLT VOLUME 8.3 fl (7.5-11.1); PLATELET COUNT 181 10^3/uL (134-434); RBC 2.61 M/mm3 (3.60-5.2); RDW 16.9 % (11.6-15.6); WHITE BLOOD COUNT 6.3 K/mm3 (4.0-10.0)
[2022-10-23 15:08] LABS: POTASSIUM 3.3 mmol/L (3.5-5.1)
[2022-10-23 15:10] LABS: BLOOD UREA NITROGEN 32.3 mg/dL (7-18)
[2022-10-23] MEDS ORDERED: POTASSIUM CHLORIDE TABS 10 MEQ TABLET.ER (FP) PO ONE (15:30)
[2022-10-23] MEDS ORDERED: oxyCODONE HCL 5 MG TABLET PO PRN (17:45)
[2022-10-23] MEDS ORDERED: SIMETHICONE 80 MG TAB.CHEW (FP) PO PRN (19:46)
[2022-10-23] MEDS ORDERED: LOPERAMIDE HCL 2 MG CAPSULE PO PRN (19:46)
[2022-10-23] MEDS ORDERED: INSULIN (NOVOLOG) ASPART 100 UNITS/ML 10ML VIAL ONE (21:30)
[2022-10-24] MEDS: INSULIN SLIDING SCALE (NOVOLOG) 1 VIAL SQ SCH ×4 (06:11→21:31)
[2022-10-24] MEDS: BRIMONIDINE TARTRATE 0.2% OPHTHALMIC 5 ML BOTTLE OU SCH ×3 (06:12→21:30)
[2022-10-24] MEDS: DORZOLAMIDE 2% HCL OPHTHALMIC SOLUTION 10 ML BOTTLE OU SCH ×3 (06:13→21:24)
[2022-10-24] MEDS: INSULIN (LEVEMIR) 100 UNITS/ML UNITS SQ SCH ×2 (06:16→21:29)
[2022-10-24 08:13] LABS: HEMATOCRIT 24.4 % (32.4-45.2); MCHC 32.9 g/dl (32.0-36.0); MEAN CELL VOLUME 94.2 fl (80-96); MEAN PLT VOLUME 8.2 fl (7.5-11.1); PLATELET COUNT 205 10^3/uL (134-434); RBC 2.59 M/mm3 (3.60-5.2); RDW 16.7 % (11.6-15.6); WHITE BLOOD COUNT 6.3 K/mm3 (4.0-10.0)
[2022-10-24 08:26] LABS: POTASSIUM 3.9 mmol/L (3.5-5.1)
[2022-10-24 08:27] LABS: CALCIUM 8.1 mg/dL (8.5-10.1)
[2022-10-24 08:28] LABS: MAGNESIUM 1.9 mg/dL (1.8-2.4)
[2022-10-24 08:31] LABS: CREATININE 4.9 mg/dL (0.55-1.3); PHOSPHOROUS 6.9 mg/dL (2.5-4.9)
[2022-10-24] MEDS: amLODIPine BESYLATE 5 MG TABLET (FP) PO SCH (09:12)
[2022-10-24] MEDS: CLOPIDOGREL BISULFATE 75 MG TABLET (FP) PO SCH (09:13)
[2022-10-24] MEDS: GABAPENTIN 100 MG CAPSULE PO SCH ×2 (09:13→21:20)
[2022-10-24] MEDS: FERROUS SO4 325 MG TABLET (FP) PO SCH (09:13)
[2022-10-24] MEDS: ASPIRIN COATED 81 MG TABLET.EC PO SCH (09:13)
[2022-10-24] MEDS: CHOLECALCIFEROL (VIT D3) 1,000 UNIT (25 MCG) TABLET PO SCH (09:14)
[2022-10-24] MEDS: MONTELUKAST NA 10 MG TABLET PO SCH (09:14)
[2022-10-24] MEDS: LOSARTAN POTASSIUM 50 MG TABLET PO SCH (09:14)
[2022-10-24] MEDS: SEVELAMER CARBONATE 800 MG TAB (FP) PO SCH ×3 (09:15→18:22)
[2022-10-24] MEDS: LIDOCAINE 5% TOPICAL PATCH TP SCH (11:07)
[2022-10-24] MEDS: TIMOLOL 0.5% OPHTHALMIC SOL 5 ML BOTTLE OU SCH ×2 (12:21→21:23)
[2022-10-24] MEDS ORDERED: EPOETIN ALFA-EPBX 10,000 UNIT/ML VIAL SQ ONE (14:47)
[2022-10-24] MEDS: LIDOCAINE PATCH REMOVAL MC SCH (21:23)
[2022-10-25] MEDS: DORZOLAMIDE 2% HCL OPHTHALMIC SOLUTION 10 ML BOTTLE OU SCH ×3 (05:50→21:25)
[2022-10-25] MEDS: BRIMONIDINE TARTRATE 0.2% OPHTHALMIC 5 ML BOTTLE OU SCH ×3 (05:50→21:25)
[2022-10-25] MEDS: INSULIN (LEVEMIR) 100 UNITS/ML UNITS SQ SCH ×2 (06:02→21:30)
[2022-10-25] MEDS: INSULIN SLIDING SCALE (NOVOLOG) 1 VIAL SQ SCH ×4 (06:02→21:30)
[2022-10-25] MEDS ORDERED: EPOETIN ALFA-EPBX 10,000 UNIT, EPOETIN ALFA-EPBX 3,000 UNIT, EPOETIN ALFA-EPBX 2,000 UNIT SQ ONE (08:30)
[2022-10-25] MEDS: SEVELAMER CARBONATE 800 MG TAB (FP) PO SCH ×3 (08:53→17:30)
[2022-10-25 09:02] LABS: HEMATOCRIT 26.5 % (32.4-45.2); HEMOGLOBIN 8.7 GM/dL (10.7-15.3); MCH 31.1 pg (25.7-33.7); MCHC 32.9 g/dl (32.0-36.0); MEAN CELL VOLUME 94.5 fl (80-96); MEAN PLT VOLUME 8.2 fl (7.5-11.1); PLATELET COUNT 212 10^3/uL (134-434); RDW 16.9 % (11.6-15.6); WHITE BLOOD COUNT 6.8 K/mm3 (4.0-10.0)
[2022-10-25] MEDS: TIMOLOL 0.5% OPHTHALMIC SOL 5 ML BOTTLE OU SCH ×2 (09:51→21:25)
[2022-10-25] MEDS: CHOLECALCIFEROL (VIT D3) 1,000 UNIT (25 MCG) TABLET PO SCH ×2 (09:51→12:23)
[2022-10-25 10:28] LABS: POTASSIUM 4.3 mmol/L (3.5-5.1)
[2022-10-25 10:31] LABS: BLOOD UREA NITROGEN 52.8 mg/dL (7-18); CALCIUM 8.5 mg/dL (8.5-10.1)
[2022-10-25 10:32] LABS: CREATININE 6.3 mg/dL (0.55-1.3)
[2022-10-25 10:35] LABS: PHOSPHOROUS 8.3 mg/dL (2.5-4.9)
[2022-10-25] MEDS: LIDOCAINE 5% TOPICAL PATCH TP SCH (12:22)
[2022-10-25] MEDS: MONTELUKAST NA 10 MG TABLET PO SCH (12:23)
[2022-10-25] MEDS: CLOPIDOGREL BISULFATE 75 MG TABLET (FP) PO SCH (12:23)
[2022-10-25] MEDS: ASPIRIN COATED 81 MG TABLET.EC PO SCH (12:23)
[2022-10-25] MEDS: LOSARTAN POTASSIUM 50 MG TABLET PO SCH (12:23)
[2022-10-25] MEDS: amLODIPine BESYLATE 5 MG TABLET (FP) PO SCH (12:24)
[2022-10-25] MEDS: GABAPENTIN 100 MG CAPSULE PO SCH ×2 (12:24→21:25)
[2022-10-25] MEDS: FERROUS SO4 325 MG TABLET (FP) PO SCH (12:24)
[2022-10-25] MEDS: LIDOCAINE PATCH REMOVAL MC SCH (21:26)
[2022-10-26] MEDS: INSULIN SLIDING SCALE (NOVOLOG) 1 VIAL SQ SCH ×4 (05:59→21:58)
[2022-10-26] MEDS: BRIMONIDINE TARTRATE 0.2% OPHTHALMIC 5 ML BOTTLE OU SCH ×3 (05:59→21:57)
[2022-10-26] MEDS: INSULIN (LEVEMIR) 100 UNITS/ML UNITS SQ SCH ×2 (05:59→21:58)
[2022-10-26] MEDS: DORZOLAMIDE 2% HCL OPHTHALMIC SOLUTION 10 ML BOTTLE OU SCH ×3 (05:59→21:57)
[2022-10-26] MEDS ORDERED: INSULIN (NOVOLOG) ASPART 100 UNITS/ML 10ML VIAL ONE (06:28)
[2022-10-26] MEDS: FERROUS SO4 325 MG TABLET (FP) PO SCH (09:24)
[2022-10-26] MEDS: amLODIPine BESYLATE 5 MG TABLET (FP) PO SCH (09:24)
[2022-10-26] MEDS: SEVELAMER CARBONATE 800 MG TAB (FP) PO SCH ×3 (09:24→16:38)
[2022-10-26] MEDS: GABAPENTIN 100 MG CAPSULE PO SCH ×2 (09:25→21:55)
[2022-10-26] MEDS: MONTELUKAST NA 10 MG TABLET PO SCH (09:25)
[2022-10-26] MEDS: LOSARTAN POTASSIUM 50 MG TABLET PO SCH (09:25)
[2022-10-26] MEDS: CHOLECALCIFEROL (VIT D3) 1,000 UNIT (25 MCG) TABLET PO SCH (09:25)
[2022-10-26] MEDS: ASPIRIN COATED 81 MG TABLET.EC PO SCH (09:25)
[2022-10-26] MEDS: CLOPIDOGREL BISULFATE 75 MG TABLET (FP) PO SCH (09:25)
[2022-10-26] MEDS: LIDOCAINE 5% TOPICAL PATCH TP SCH (09:25)
[2022-10-26 09:30] LABS: HEMOGLOBIN 8.6 GM/dL (10.7-15.3); MCH 30.5 pg (25.7-33.7); MEAN CELL VOLUME 95.5 fl (80-96); MEAN PLT VOLUME 7.6 fl (7.5-11.1); PLATELET COUNT 216 10^3/uL (134-434); RBC 2.82 M/mm3 (3.60-5.2); RDW 17.4 % (11.6-15.6); WHITE BLOOD COUNT 5.8 K/mm3 (4.0-10.0)
[2022-10-26] MEDS: TIMOLOL 0.5% OPHTHALMIC SOL 5 ML BOTTLE OU SCH ×2 (09:31→21:58)
[2022-10-26 10:14] LABS: PHOSPHOROUS 5.3 mg/dL (2.5-4.9)
[2022-10-26 10:16] LABS: CALCIUM 8.7 mg/dL (8.5-10.1)
[2022-10-26 10:17] LABS: MAGNESIUM 1.9 mg/dL (1.8-2.4)
[2022-10-26 10:18] LABS: CREATININE 4.1 mg/dL (0.55-1.3)
[2022-10-26] MEDS: LIDOCAINE PATCH REMOVAL MC SCH (21:55)
[2022-10-27] MEDS: BRIMONIDINE TARTRATE 0.2% OPHTHALMIC 5 ML BOTTLE OU SCH ×3 (06:22→22:16)
[2022-10-27] MEDS: DORZOLAMIDE 2% HCL OPHTHALMIC SOLUTION 10 ML BOTTLE OU SCH ×3 (06:22→22:16)
[2022-10-27] MEDS: INSULIN SLIDING SCALE (NOVOLOG) 1 VIAL SQ SCH ×4 (06:22→22:19)
[2022-10-27] MEDS: INSULIN (LEVEMIR) 100 UNITS/ML UNITS SQ SCH ×2 (06:22→22:20)
[2022-10-27] MEDS ORDERED: INSULIN (NOVOLOG) ASPART 100 UNITS/ML 10ML VIAL ONE ×3 (06:46→21:14)
[2022-10-27] MEDS: SEVELAMER CARBONATE 800 MG TAB (FP) PO SCH ×3 (07:50→17:26)
[2022-10-27] MEDS ORDERED: SODIUM CHLORIDE 250 ML IV PRN (09:19)
[2022-10-27] MEDS: CLOPIDOGREL BISULFATE 75 MG TABLET (FP) PO SCH (09:58)
[2022-10-27] MEDS: LOSARTAN POTASSIUM 50 MG TABLET PO SCH (09:58)
[2022-10-27] MEDS: ASPIRIN COATED 81 MG TABLET.EC PO SCH (09:58)
[2022-10-27] MEDS: MONTELUKAST NA 10 MG TABLET PO SCH (09:58)
[2022-10-27] MEDS: CHOLECALCIFEROL (VIT D3) 1,000 UNIT (25 MCG) TABLET PO SCH (09:58)
[2022-10-27] MEDS: GABAPENTIN 100 MG CAPSULE PO SCH ×2 (09:58→22:15)
[2022-10-27] MEDS: FERROUS SO4 325 MG TABLET (FP) PO SCH (09:58)
[2022-10-27] MEDS: amLODIPine BESYLATE 5 MG TABLET (FP) PO SCH (09:59)
[2022-10-27] MEDS: LIDOCAINE 5% TOPICAL PATCH TP SCH (09:59)
[2022-10-27] MEDS: TIMOLOL 0.5% OPHTHALMIC SOL 5 ML BOTTLE OU SCH ×2 (10:00→22:16)
[2022-10-27] MEDS ORDERED: EPOETIN ALFA-EPBX 20,000 UNIT/ML VIAL SQ ONE (10:30)
[2022-10-27] MEDS: LIDOCAINE PATCH REMOVAL MC SCH (22:16)
[2022-10-28] MEDS: BRIMONIDINE TARTRATE 0.2% OPHTHALMIC 5 ML BOTTLE OU SCH ×3 (05:59→22:00)
[2022-10-28] MEDS: DORZOLAMIDE 2% HCL OPHTHALMIC SOLUTION 10 ML BOTTLE OU SCH ×3 (05:59→22:00)
[2022-10-28] MEDS: INSULIN SLIDING SCALE (NOVOLOG) 1 VIAL SQ SCH ×4 (06:02→22:00)
[2022-10-28] MEDS: INSULIN (LEVEMIR) 100 UNITS/ML UNITS SQ SCH ×2 (06:21→22:31)
[2022-10-28] MEDS ORDERED: INSULIN (NOVOLOG) ASPART 100 UNITS/ML 10ML VIAL ONE ×2 (07:38→21:44)
[2022-10-28] MEDS ORDERED: INSULIN (LEVEMIR) 100 UNITS/ML UNITS SQ ONE (07:38)
[2022-10-28] MEDS: SEVELAMER CARBONATE 800 MG TAB (FP) PO SCH ×3 (07:52→16:38)
[2022-10-28 08:24] LABS: HEMATOCRIT 23.6 % (32.4-45.2); HEMOGLOBIN 7.4 GM/dL (10.7-15.3); MCH 30.1 pg (25.7-33.7); MCHC 31.1 g/dl (32.0-36.0); MEAN CELL VOLUME 96.7 fl (80-96); MEAN PLT VOLUME 7.9 fl (7.5-11.1); PLATELET COUNT 186 10^3/uL (134-434); RBC 2.44 M/mm3 (3.60-5.2); RDW 17.5 % (11.6-15.6); WHITE BLOOD COUNT 5.6 K/mm3 (4.0-10.0)
[2022-10-28 08:50] LABS: POTASSIUM 4.5 mmol/L (3.5-5.1)
[2022-10-28 08:54] LABS: CALCIUM 8.1 mg/dL (8.5-10.1); MAGNESIUM 1.9 mg/dL (1.8-2.4)
[2022-10-28 08:57] LABS: CREATININE 6.5 mg/dL (0.55-1.3); PHOSPHOROUS 7.7 mg/dL (2.5-4.9)
[2022-10-28 08:58] LABS: BLOOD UREA NITROGEN 57.3 mg/dL (7-18)
[2022-10-28] MEDS: MONTELUKAST NA 10 MG TABLET PO SCH (09:53)
[2022-10-28] MEDS: FERROUS SO4 325 MG TABLET (FP) PO SCH (09:53)
[2022-10-28] MEDS: amLODIPine BESYLATE 5 MG TABLET (FP) PO SCH (09:53)
[2022-10-28] MEDS: GABAPENTIN 100 MG CAPSULE PO SCH ×2 (09:53→21:52)
[2022-10-28] MEDS: LOSARTAN POTASSIUM 50 MG TABLET PO SCH (09:53)
[2022-10-28] MEDS: CLOPIDOGREL BISULFATE 75 MG TABLET (FP) PO SCH (09:53)
[2022-10-28] MEDS: CHOLECALCIFEROL (VIT D3) 1,000 UNIT (25 MCG) TABLET PO SCH (09:53)
[2022-10-28] MEDS: LIDOCAINE 5% TOPICAL PATCH TP SCH (09:54)
[2022-10-28] MEDS: ASPIRIN COATED 81 MG TABLET.EC PO SCH (09:56)
[2022-10-28] MEDS: TIMOLOL 0.5% OPHTHALMIC SOL 5 ML BOTTLE OU SCH ×2 (09:59→21:59)
[2022-10-28] MEDS: LIDOCAINE PATCH REMOVAL MC SCH (21:52)
[2022-10-29] MEDS ORDERED: ACETAMINOPHEN 1000 MG/100 ML BAG IVPB ONE (00:15)
[2022-10-29] MEDS: BRIMONIDINE TARTRATE 0.2% OPHTHALMIC 5 ML BOTTLE OU SCH ×2 (06:20→15:04)
[2022-10-29] MEDS: DORZOLAMIDE 2% HCL OPHTHALMIC SOLUTION 10 ML BOTTLE OU SCH ×2 (06:20→15:04)
[2022-10-29] MEDS: INSULIN (LEVEMIR) 100 UNITS/ML UNITS SQ SCH (06:20)
[2022-10-29] MEDS: INSULIN SLIDING SCALE (NOVOLOG) 1 VIAL SQ SCH ×2 (06:20→11:38)
[2022-10-29] MEDS: SEVELAMER CARBONATE 800 MG TAB (FP) PO SCH ×2 (08:45→11:41)
[2022-10-29] MEDS ORDERED: oxyCODONE HCL 5 MG TABLET PO ONE (10:07)
[2022-10-29] MEDS: LIDOCAINE 5% TOPICAL PATCH TP SCH (10:33)
[2022-10-29] MEDS: amLODIPine BESYLATE 5 MG TABLET (FP) PO SCH (10:33)
[2022-10-29] MEDS: GABAPENTIN 100 MG CAPSULE PO SCH (10:33)
[2022-10-29] MEDS: LOSARTAN POTASSIUM 50 MG TABLET PO SCH (10:33)
[2022-10-29] MEDS: MONTELUKAST NA 10 MG TABLET PO SCH (10:33)
[2022-10-29] MEDS: FERROUS SO4 325 MG TABLET (FP) PO SCH (10:33)
[2022-10-29] MEDS: CHOLECALCIFEROL (VIT D3) 1,000 UNIT (25 MCG) TABLET PO SCH (10:33)
[2022-10-29] MEDS: CLOPIDOGREL BISULFATE 75 MG TABLET (FP) PO SCH (10:33)
[2022-10-29] MEDS: ASPIRIN COATED 81 MG TABLET.EC PO SCH (10:33)
[2022-10-29] MEDS: TIMOLOL 0.5% OPHTHALMIC SOL 5 ML BOTTLE OU SCH (13:44)
[2022-10-29 14:33] VITALS: BP 138/68; PULSE 83; RESP 18; TEMP 98.6
== END 2022-10-29 17:06 | DRG 313 ==
LOC: JER 15:11 → JERBED 18:55 → J4W 21:35 → J6S 10-22 11:39
PROVIDERS: ADMIT Internal Medicine; ATTEND Internal Medicine
PROC: 0SSF04Z Reposition Right Ankle Joint with Internal Fixation Device, Open Approach (ICD-10-PCS; principal; 2022-10-20 09:00)
PROC: 30233N1 Transfusion of Nonautologous Red Blood Cells into Peripheral Vein, Percutaneous Approach (ICD-10-PCS; 2022-10-21)
PROC: 5A1D70Z Performance of Urinary Filtration, Intermittent, Less than 6 Hours Per Day (ICD-10-PCS; 2022-10-28)
DX: S82.891A Other fracture of right lower leg, initial encounter for closed fracture (principal); E11.40 Type 2 diabetes mellitus with diabetic neuropathy, unspecified; I13.2 Hypertensive heart and chronic kidney disease with heart failure and with stage 5 chronic kidney disease, or end stage renal disease; N18.6 End stage renal disease; I50.32 Chronic diastolic (congestive) heart failure; D63.1 Anemia in chronic kidney disease; H40.9 Unspecified glaucoma; M25.511 Pain in right shoulder; I16.0 Hypertensive urgency; W19.XXXA Unspecified fall, initial encounter; Y93.9 Activity, unspecified; Y92.89 Other specified places as the place of occurrence of the external cause; Y99.9 Unspecified external cause status; Z99.2 Dependence on renal dialysis
CPT/HCPCS: 36415; 36430; 36511; 71045-TC-FY; 72170-TC-FY; 73030-TC-RT-FY; 73200-TC-RT; 73562-TC-RT-FY; 73590-TC-RT-FY; 73610-TC-RT-FY; 73630-TC-RT-FY; 73700-TC-RT; 76000-TC-FY; 80048; 80053; 82728; 82746; 82947; 82962; 83540; 83550; 83735; 84100; 84484; 84703; 85025; 85027; 85045; 85610; 85730; 86704; 86803; 86850; 86900; 86901; 86922; 87340; 87517; 87635; 93005; 93010; 93306-TC; 94010; 94760; 97116-GP; 97162-GP; 99285-25; C1713; C9803-CS; J1100; P9016; P9038; Q5106; U0003; U0005